=== PATIENT | female | born 1960 | race Caucasian/White ===

== ENCOUNTER → 2017-05-31 07:04 | Outpatient (CLI) | payer OTHER, SELFPAY ==
[2017-05-31 08:56] LABS: ALB/GLOB Ratio 1.1 RATIO (0.9-2.4); AST(SGOT) 18 U/L (15-37); Alanine Aminotransfer ALT/SGPT 21 U/L (13-56); Albumin, Serum 3.9 g/dL (3.2-5.0); Alkaline Phosphatase 89 U/L (45-117); Anion Gap 7 (5-15); BUN 11 mg/dL (7-18); BUN/Creat Ratio 13.9 RATIO (10-20); Calcium,Total 9.1 mg/dL (8.5-10.1); Chloride 103 mmol/L (98-107); Cholesterol 194 mg/dL (200); Creatinine, Serum 0.79 mg/dL (0.55-1.02); EST Glomerular Filtration Rate 80 mL/min (>60); Est Glom Filt Rate - Afr Amer 97 mL/min (>60); Globulin 3.7 g/dL (2.2-4.2); Glucose 93 mg/dL (74-106); High Density Lipoprotein 60 mg/dL; Potassium 4.1 mmol/L (3.5-5.1); Protein, Total 7.6 g/dL (6.4-8.2); Sodium Level 141 mmol/L (136-145); Triglycerides 99 mg/dL; Very Low Density Lipoprotein 20 mg/dL (5-40)
[2017-06-02 09:50] LABS: Vitamin D,25 Hydroxy 45.2 ng/mL (19.95-100.01)
== END ==
PROVIDERS: Family Provider Nurse Practitioner; PCP Nurse Practitioner; Visit Provider Nurse Practitioner
DX: E78.5 Hyperlipidemia, unspecified (principal); E83.52 Hypercalcemia
CPT/HCPCS: 36415; 80053; 80061; 82306

== ENCOUNTER → 2018-04-17 07:31 | Outpatient (CLI) | payer OTHER, SELFPAY ==
--- NOTE | 2018-04-17 06:56 | BI_ITS ---
MAMMOGRAPHY - BILATERAL SCREENING REASON FOR EXAM: Female, 57 years old. Routine annual screening examination. PERTINENT HISTORY: Grandmother with breast cancer. Prior left stereotactic breast biopsy. TECHNIQUE: Digital bilateral breast nikhil (3D mammographic acquisition) in the CC and MLO projections. 2-D mediolateral oblique (MLO) and craniocaudad (CC) views of both breasts were obtained. CAD: Full Field Digital Mammography with Computer Added Detection was performed. COMPARISON: Comparison is made with prior study dated January 24, 2017 and January 23, 2016. FINDINGS: Breast Composition: There are scattered areas of fibroglandular density. There are no dominant masses or suspicious calcifications. Stable benign-appearing bilateral axillary lymph nodes. No other significant abnormalities are identified. There has been no significant change since the prior study. BI/SCREENING MAMM (CAD), BILAT IMPRESSION: Stable bilateral screening mammogram. Yearly follow-up mammogram recommended. (A) ASSESSMENT CATEGORY: BIRADS Category 2: Benign. A letter regarding these results will be sent to the patient by the facility within 30 days. Approximately 10% of breast cancers are not detected by mammography. A normal mammogram should not delay biopsy of a clinically suspicious abnormality. [id number] Electronically Signed: Logan Pope MD at 8:55 EST Tel [phone], Service support ,
== END ==
PROVIDERS: Family Provider Nurse Practitioner; PCP Nurse Practitioner; Referring Provider Nurse Practitioner; Visit Provider Nurse Practitioner
DX: Z12.31 Encounter for screening mammogram for malignant neoplasm of breast (principal)
CPT/HCPCS: 77063; 77067

== ENCOUNTER → 2018-07-17 08:15 | Outpatient (CLI) | payer OTHER, SELFPAY ==
[2016-07-06 15:57] VITALS: BMI 28.6
--- NOTE | 2018-07-17 08:17 | CT_ITS ---
HISTORY: RIGHT PELVIC MASS EXAMINATION: CT Pelvis W/ Contrast TECHNIQUE: Helically acquired images were obtained of the pelvis. A radiation dose optimization technique was used for this scan. IV Contrast dosage and agent: 100CC Isovue 300 Oral contrast: None. COMPARISON: None FINDINGS: LYMPH NODES: No enlarged pelvic lymph nodes. URINARY BLADDER: Unremarkable. REPRODUCTIVE ORGANS: 1.6 cm diameter oval fatty attenuation lesion in the right ovary compatible with a small incidental right ovarian dermoid. Uterus and left ovary unremarkable. ABDOMINAL WALL: No discrete abdominal or pelvic wall hernia observed. BONES: No lytic or blastic abnormality observed. BOWEL: Normal appendix. Scattered sigmoid colon diverticula. CT/Pelvis WITH IV Contrast IMPRESSION: Small incidental 1.6 cm right ovarian dermoid. Individualized dose optimization techniques were used for this CT. at 0310 Reported and signed by: Darian Bennett MD Electronically Signed: Darian Bennett, at 3:09 EDT Tel , Service support ,
== END ==
PROVIDERS: Family Provider Nurse Practitioner; PCP Nurse Practitioner; Referring Provider Obstetrics & Gynecology; Visit Provider Obstetrics & Gynecology
DX: R19.03 Right lower quadrant abdominal swelling, mass and lump (principal)
CPT/HCPCS: 72193; Q9967

== ENCOUNTER → 2018-07-30 | Outpatient (CLI) | payer OTHER, SELFPAY ==
[2016-07-06 15:57] VITALS: BMI 28.6
--- NOTE | 2018-07-30 15:54 | BD_ITS ---
STUDY: DUAL ENERGY X-RAY ABSORPTIOMETRY / DXA REASON FOR EXAM: Female, 58 years old. The patient is postmenopausal. Loss of height. TECHNIQUE: Bone Mineral Density (BMD) measurements of lumbar spine and bilateral hips were obtained. COMPARISON: Comparison is made with prior study dated January 23, 2016. FINDINGS: Lumbar Spine (L1-L4): g/cm2 (1.179) / T-score (0.0) / Z-score (1.0) Findings are suggestive of normal bone density with a low fracture risk. Left Femur Total: g/cm2 (0.941) / T-score (-0.5) / Z-score (0.3) Left Femoral Neck: g/cm2 (0.883) / T-score (-1.1) / Z-score (0.0) Right Femur Total: g/cm2 (0.921) / T-score (-0.7) / Z-score (0.1) Right Femoral Neck: g/cm2 (0.852) / T-score (-1.3) / Z-score (-0.2) The T-Scores on the most recent prior examination were: Lumbar Spine (L1-L4): There has been worsening of bone density since the previous examination. Left Femur Total: which represents a worsening of 2.9%. Right Femur Total: which represents a worsening of 3.7%. BD/Dexa Bone Density Study IMPRESSION: The patient is considered osteopenic as outlined below according to World Marcos Organization (WHO) criteria with a low fracture risk. There has been worsening of bone density since the previous examination. Reference Information: The T-score is the number of standard deviations above or below the standard which is normal for young adults at their peak bone mineral density. The World Health Organization (WHO) interprets the T-scores as follows: Above -1 Normal bone density Between -1 and -2.5 Osteopenia Equal to / or below -2.5 Osteoporosis As a practical clinical guideline, osteopenia may be graded as follows: Mild -1 through -1.5 Moderate -1.6 through -2.0 Severe -2.1 through -2.4 The Z-score is the number of standard deviations above or below age-matched controls. A Z-score of less than -1.5 would be considered abnormal. References: 1. NIH Osteoporosis and Related Bone Diseases http://www.osteo.org 2. International Society for Clinical Densitometry http://www.iscd.org 3. National Osteoporosis Foundation http://www.nof.org Electronically Signed: Logan Pope, at 15:10 EDT , Service support ,
== END | disposition home or self-care (01) ==
PROVIDERS: Family Provider Nurse Practitioner; PCP Nurse Practitioner; Referring Provider Obstetrics & Gynecology; Visit Provider Obstetrics & Gynecology
DX: Z13.820 Encounter for screening for osteoporosis (principal)
CPT/HCPCS: 77080

== ENCOUNTER → 2018-08-05 | Outpatient (CLI) | payer OTHER, SELFPAY ==
[2016-07-06 15:57] VITALS: BMI 28.6
--- NOTE | 2018-08-05 15:46 | RAD_ITS ---
STUDY: X-RAY CHEST REASON FOR EXAM: Female, 58 years old. Cough TECHNIQUE: PA and lateral COMPARISON: March 11, 2016. FINDINGS: The lungs are clear and expanded. There is no demonstrated pleural abnormality. Normal size heart. Normal mediastinum and aranza. Normal visualized pulmonary arteries. Normal visualized aortic arch and descending thoracic aorta. Dorsal spine demonstrates spondylosis.. Normal visualized ribs, clavicles, and shoulders. There is no demonstrated abnormality of the visualized soft tissue structures of the upper abdomen. No significant change since prior exam RAD/Chest PA and Lateral IMPRESSION: No acute cardiopulmonary pathology Electronically Signed: Efrain Schilling MD at 21:57 EDT , Service support ,
== END | disposition home or self-care (01) ==
LOC: HPRAD 15:42
PROVIDERS: Family Provider Nurse Practitioner; PCP Nurse Practitioner; Referring Provider Nurse Practitioner; Visit Provider Nurse Practitioner
DX: Z01.818 Encounter for other preprocedural examination (principal)
CPT/HCPCS: 71046

== ENCOUNTER 2018-08-10 11:41 | Day surgery (SDC) | payer OTHER, SELFPAY ==
--- NOTE | 2018-08-04 16:25 | EKG12_ITS ---
Test Reason : PRE OP Blood Pressure : / mmHG Vent. Rate : 079 BPM Atrial Rate : 079 BPM P-R Int : 162 ms QRS Dur : 086 ms QT Int : 390 ms P-R-T Axes : -04 -02 020 degrees QTc Int : 447 ms Normal sinus rhythm Nonspecific ST abnormality Inferior NH, age undetermined, cannot be excluded Abnormal ECG Confirmed by TANVI JUSTIN, CAMDEN ([id number]), food editor ELODIA KNOWLES ([id number]) on 08/05/2018 1:39:18 PM Referred By: Nurys Rosa Confirmed By:CAMDEN TINAJERO MD
[2018-08-04 17:25] LABS: International Normalized Ratio 1.1; Prothrombin Time (Protime)PT. 13.5 SECONDS (11.7-14.9)
[2018-08-04 17:26] LABS: Partial Thromboplast Time 29.2 Seconds (24.1-36.2)
[2018-08-04 17:28] LABS: Hematocrit 40.3 % (37-47); Hemoglobin 13.3 g/dl (12.0-15.0); Mean Corpuscular Hgb 29.9 pg (27.0-32.0); Mean Corpuscular Volume 90.6 fL (81-99); Mean Platelet Vol. 9.3 fl (6.2-12.0); Platelet Count 206 K/mm3 (150-450); RBC Distribution Width CV 12.6 % (11.6-14.6); RBC Distribution Width SD 41.6 fl (35.1-43.9); Red Blood Count 4.45 M/mm3 (4.2-5.4); White Blood Count 6.9 K/mm3 (4.4-11.0)
[2018-08-04 17:33] LABS: Scan Indicated on CBC? Y/N NO
[2018-08-04 17:49] LABS: AST(SGOT) 22 U/L (15-37); Alanine Aminotransfer ALT/SGPT 20 U/L (13-56); Albumin, Serum 4.1 g/dL (3.2-5.0); Alkaline Phosphatase 92 U/L (45-117); Anion Gap 4 (5-15); BUN 14 mg/dL (7-18); BUN/Creat Ratio 18.4 RATIO (10-20); Bilirubin, Direct 0.09 mg/dL (0.00-0.30); Calcium,Total 9.1 mg/dL (8.5-10.1); Chloride 103 mmol/L (98-107); Creatinine, Serum 0.76 mg/dL (0.55-1.02); EST Glomerular Filtration Rate 83 mL/min (>60); Est Glom Filt Rate - Afr Amer 101 mL/min (>60); Globulin 3.4 g/dL (2.2-4.2); Glucose 88 mg/dL (74-106); Potassium 4.3 mmol/L (3.5-5.1); Protein, Total 7.5 g/dL (6.4-8.2); Sodium Level 136 mmol/L (136-145)
--- NOTE | 2018-08-10 | OV_PTH ---
PATIENT: YASSINE BRICE [place] [facility] [id number] AGE/SX: 58/F ROOM: RE08/10/[address]: Dr. Nurys Rosa MD : 1960 BED: DIS: 08/10/2018 SPEC #: [id number] RECD: 08/11/18 07:29 STATUS: MIKHAIL SUE #: [id number] NIRMALA: 08/10/18 00:[address]: Nurys Rosa DEPT: SURGICAL PATHOLOGY RECD BY: Marshall De La Paz ENTERED: 08/11/18 12:13 SP TYPE: OVARY OTHR DR: Hortencia Flores NP-lCara Tissues: Right ovary Procedures: Surgery Specimen Level IV HEADER OPERATION: Laparoscopic right oophorectomy PRE-OP DIAGNOSIS: Right ovarian cyst TISSUE SUBMITTED: Right fallopian tube, right ovary, posterior uterine wall mass MICROSCOPIC DIAGNOSIS Right fallopian tube, right ovary and posterior uterine wall mass, salpingo-oophorectomy: Fallopian tube - no pathologic diagnosis. Ovary - no pathologic diagnosis. Posterior uterine wall mass - a piece of mature adipose tissue with extensive fat necrosis and chronic inflammation. DONNY:nneka 08/12/18 MICROSCOPIC DESCRIPTION Slides are reviewed. GROSS DESCRIPTION Received in fixative is one container labeled with the patient's name and designated right fallopian tube, right ovary, posterior uterine wall mass. The specimen consists of fallopian tube, separate ovary and a separate ladd-white to yellow nodule. The fallopian tube measures 4 cm in length and 0.5 cm in diameter. The fimbrial end is identified. Sections reveal unremarkable cut surfaces. The detached separate ovary measures 1.5 x 1 x 0.6 cm. Sections reveal unremarkable cut surfaces. A previously partially opened ladd-light yellow nodule measures 1.5 x 1.5 x 0.8 cm. It is bisected and reveals ladd, solid cut surfaces. Community Midwife sections are submitted in three cassettes as follows: 1 - fallopian tube, 2 - ovary, entirely submitted, 3 - nodule, entirely submitted. / DONNY:nneka 08/11/18 TC:5 CPT: 30629
--- NOTE | 2018-08-10 07:54 | PCM.HP.STD ---
Problem List (1) Ovarian cyst Status: Acute History of Present Illness Date of Admission: 08/10/18 Chief Complaint: right ovarian cyst The patient is a 58 year old, nulligravid female. She is an e-ciagrette user. Prior LSO laparoscopically for cyst of fallopian tube and adhesive disease causing ovarian cyst of left. Noted to have abdominal swelling. Imaging revealed suspicion for dermoid of right ovary. Past Medical History Medical History: Medical History (Last Updated 08/10/18 @ 07:58 by Nurys Rosa MD) History of hysteroscopy Z98.890 [place] teeth extracted K08.409 Allergies latex Allergy (Verified 08/04/18 12:06) Swelling plastic tape Allergy (Uncoded 08/04/18 12:06) Swelling Home Medications: Ambulatory Orders Medication Instructions Recorded Amitriptyline HCl 50 mg PO QHS 08/18/15 Atenolol [Tenormin] 25 mg PO DAILY 08/18/15 Escitalopram Oxalate [Lexapro] 20 mg PO QHS 08/18/15 Spironolactone [Aldactone] 100 mg PO DAILY 08/18/15 Cholecalciferol (Vitamin D3) 2,000 unit PO DAILY 17 [Vitamin D3] Multivitamin [Multiple Vitamins] 1 each PO DAILY 08/04/18 Surgical History: Surgical History (Last Updated 08/10/18 @ 07:58 by Nurys Rosa MD) H/O dilation and curettage Z98.890 History of laparoscopy Z98.890 History of tonsillectomy Z90.89 Surgical History: dilatation and curettage, tonsillectomy [employer] 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 History: ovarian cysts Lives: Spouse/ Significant Other - current e-cigarette user Smoking Status: Former smoker Tobacco Use: Vapor Alcohol: Occasional Drugs: None Review of Systems Constitutional: Denies: Chills, Fever, Weight Change HEENT: Denies: Difficulty Hearing, Difficulty Swallowing, Nasal bleeding, Nasal Congestion, Sore Throat Cardiovascular: Denies: Chest Pain, Palpitations Respiratory: Denies: Shortness of Breath, Wheezing Gastrointestinal: Reports: - - bloating Genitourinary: Denies: Dysuria, Frequency, Hematuria, Incontinence, Urgency Musculoskeletal: Denies: Joint Pain, Muscle pain Skin: Denies: Lesions, Skin Changes Neurological: Denies: Focal weakness, Numbness Psychiatric: Denies: Anxiety, Depression Endocrine: Denies: Heat/ Cold Intolerance Hematologic/ Lymphatic: Denies: Easy Bleeding VTE Information - Inpt Only VTE Present on Admission: No VTE Mechan Device Prophylaxis: SCD's VTE Pharm Prophylaxis ordered?: No Reason prophylaxis not ordered:: Procedure Not Indicated Subjective: Healthy appearing female. No acute distress. - Physical Exam General: No apparent distress, Well developed, Well nourished HEENT: PERRLA, EOMI, Normocephalic Oral: Moist Mucosa Neck: Supple Lungs: Clear to auscultation, Normal air movement, No wheeze Cardiovascular: Regular rate, Regular Rhythm Abdomen: Bowel Sounds Present, Soft, Non Tender, Non-Distended Extremities: No edema, No Calf Tenderness Skin: No rashes, No breakdown Musculoskeletal: No Muscle Wasting Neurological: Cranial nerves II-XII grossly intact Assessment/Plan All Active Problems Paratubal cyst (Acute) Ovarian cyst (Acute) Stenotic cervical os (Acute) Postmenopausal bleeding (Acute) 1. Right ovarian cyst, suspect dermoid from imaging findings laparoscopic removal 2. EKG changes cardiology involvement e-cigarette present and former cigarette user further evaluation occurring
[2018-08-10 12:01] VITALS: BP 118/94; PULSE 133; RESP 14; TEMP 36.8; O2SAT 100; BMI 28.5
--- NOTE | 2018-08-10 14:30 | PCM.OPRPT ---
Problem List (1) Ovarian cyst Status: Acute Report of Operation Date of Procedure: 08/10/18 Pre-Operative Diagnosis: Right adnexal mass Post-Operative Diagnosis: Right pelvic adhesive disease involving the right ovary right fallopian tube along with a separate 1-1/2 cm mass of the posterior surface of the uterus Surgery/Procedure Performed:: Operative laparoscopy right salpingo-oophorectomy removal of posterior uterine mass and enterolysis Description of Surgical Findings:: Uterus was sounded to approximately 8 cm in anteflexed position. Upon entry into the abdominal cavity it was noted that there was a large amount of pelvic adhesive disease surrounding the right ovary right fallopian tube and this 1.5 similar mass in the posterior surface of the uterus otherwise the pelvis appeared to be normal. product marketing manager: None product marketing manager: Robbie Broderick Type of Anesthesia:: General Anesthesiologist: [place] Special Medications: Cefotetan 2 g IV preoperatively Specimen's removed: Right fallopian tube, right ovary, posterior uterine solid mass Drains: None Estimated Blood Loss (mL): Minimal Fluids Replaced: Lactated Ringer's Description of Procedure: Patient presented in the n.p.o. status and had undergone a bowel preparation in the home setting. She is placed on the operating room table in the centimeters bag was in place. Patient had monitors placed and underwent a general anesthetic. Once it was found be adequate she is placed in dorsal lithotomy position via the Sky stirrups prepped and she was prepped and draped in normal sterile fashion. We did a timeout that occurred appropriately as well. The weighted speculum was placed to the vaginal vault letter to been emptied of remaining urine with a straight cath and was noted to be clear. The antilipid the cervix was grasped elevated and the uterine manipulator was placed to the cervical eyes for manipulation of the uterus all other instruments removed from the vagina. Changing gloves are into the top of the patient the prior incision site was once again incised. Sequential ligation and transection of the adipose tissue followed by the fascial tissue and entry into the peritoneum occurred manually. This was noted to be hemostatic. The trocar was placed directly into the incision and secured with the fascial layer. The lap scope was assembled and placed into the umbilical trocar and CO2 gas was infused into the abdominal cavity with investigation of the pelvis occurring. 2 additional 5 mm trochars were placed in direct under direct visualization in the right and left lower quadrants. The LigaSure machine was then used to aid with enteral lysis to free the fallopian tube and ovary from the pelvic adhesive disease as well as from the posterior uterine mass that was noted. That mass appeared to be fibroid-like or potentially an epiploicae 8 that had infarcted and attached to the back of the uterine wall. The mesosalpinx was transected and ligated the fallopian tube was then disconnected from the uterus and taken out through 1 of our patient observation assistant ports and hemostasis was noted. The ureter was noted to be well away from the area of operation and the flow the right ovary was then elevated uterine ovarian ligament was cauterized and transected followed by removal of the ovary itself from the pelvic adhesive disease along the posterior wall hemostasis was noted. The ovary was then removed through the umbilical trocar site. Lastly the solid density on the posterior surface of the uterine wall was grasped and disconnected cauterized and removed through the umbilical trocar as well. Irrigation of the pelvis occurred hemostasis was noted. She was removed from the abdomen ureters were both noted to be peristalsing bilaterally and well away from the area of operation all sponge and instrument counts were correct x2. The CO2 gas was released from the abdominal cavity trochars were released the fascial layer was identified at the umbilicus and 0 Vicryl suture was used in a running interlocking stitch to reapproximate this layer followed by subcuticular relaxation of the skin and subcuticular layer with a 4-0 Monocryl the umbilicus. The left and right 5 mm ports were then closed with subcuticular 4-0 Monocryl at this point in time then sponge instrument and needle counts were correct x2. Patient was awakened in stable condition after the uterine manipulator had been removed from the vagina per myself patient will be taken recovery room with discharge to the home setting Grafts/Implants Used: None - Complications None - Admit VTE Documentation VTE Present on Admission: No VTE Mechan Device Prophylaxis: SCD's VTE Pharm Prophylaxis ordered?: No Reason prophylaxis not ordered:: Procedure Not Indicated
--- NOTE | 2018-08-10 14:37 | OP.PCM_ITS ---
Problem List (1) Ovarian cyst Status: Acute Report of Operation Date of Procedure: 08/10/18 Pre-Operative Diagnosis: Right adnexal mass Post-Operative Diagnosis: Right pelvic adhesive disease involving the right ovary right fallopian tube along with a separate 1-1/2 cm mass of the posterior surface of the uterus Surgery/Procedure Performed:: Operative laparoscopy right salpingo-oophorectomy removal of posterior uterine mass and enterolysis Description of Surgical Findings:: Uterus was sounded to approximately 8 cm in anteflexed position. Upon entry into the abdominal cavity it was noted that there was a large amount of pelvic adhesive disease surrounding the right ovary right fallopian tube and this 1.5 similar mass in the posterior surface of the uterus otherwise the pelvis ap peared to be normal. char puller: None char puller: Robbie Broderick Type of Anesthesia:: General Anesthesiologist: [place] Special Medications: Cefotetan 2 g IV preoperatively Specimen's removed: Right fallopian tube, right ovary, posterior uterine solid mass Drains: None Estimated Blood Loss (mL): Minimal Fluids Replaced: Lactated Ringer's Description of Procedure: Patient presented in the n.p.o. status and had undergone a bowel preparation in the home setting. She is placed on the operating room table in the centimeters bag was in place. Patient had monitors placed and underwent a general anesthetic. Once it was found be adequate she is placed in dorsal lithotomy position via the Sky stirrups prepped and she was prepped and draped in normal sterile fashion. We did a timeout that occurred appropriately as well. The weighted speculum was placed to the vaginal vault letter to been emptied of remaining urine with a straight cath and was noted to be clear. The antilipid the cervix was grasped elevated and the uterine manipulator was placed to the cervical eyes for manipulation of the uterus all other instruments removed from the vagina. Changing gloves are into the top of the patient the prior incision site was once again incised. Sequential ligation and transection of the adipose tissue followed by the fascial tissue and entry into the peritoneum occurred manually. This was noted to be hemostatic. The trocar was placed directly into the incision and secured with the fascial layer. The lap scope was assembled and placed into the umbilical trocar and CO2 gas was infused into the abdominal cavity with investigation of the pelvis occurring. 2 additional 5 mm trochars were placed in direct under direct visualization in the right and left lower quadrants. The LigaSure machine was then used to aid with enteral lysis to free the fallopian tube and ovary from the pelvic adhesive disease as well as from the posterior uterine mass that was noted. That mass appeared to be fibroid- like or potentially an epiploicae 8 that had infarcted and attached to the back of the uterine wall. The mesosalpinx was transected and ligated the fallopian tube was then disconnected from the uterus and taken out through 1 of our assistant drafter ports and hemostasis was noted. The ureter was noted to be well away from the area of operation and the flow the right ovary was then elevated uterine ovarian ligament was cauterized and transected followed by removal of the ovary itself from the pelvic adhesive disease along the posterior wall hemostasis was noted. The ovary was then removed through the umbilical trocar site. Lastly the solid density on the posterior surface of the uterine wall was grasped and disconnected cauterized and removed through the umbilical trocar as well. Irrigation of the pelvis occurred hemostasis was noted. She was removed from the abdomen ureters were both noted to be peristalsing bilaterally and well away from the area of operation all sponge and instrument counts were correct x2. The CO2 gas was released from the abdominal cavity trochars were released the fascial layer was identified at the umbilicus and 0 Vicryl suture was used in a running interlocking stitch to reapproximate this layer followed by subcuticular relaxation of the skin and subcuticular layer with a 4-0 Monocryl the umbilicus. The left and right 5 mm ports were then closed with subcuticular 4-0 Monocryl at this point in time then sponge instrument and needle counts were correct x2. Patient was awakened in stable condition after the uterine manipulator had been removed from the vagina per myself patient will be taken recovery room with discharge to the home setting Grafts/Implants Used: None - Complications None - Admit VTE Documentation VTE Present on Admission: No VTE Mechan Device Prophylaxis: SCD's VTE Pharm Prophylaxis ordered?: No Reason prophylaxis not ordered:: Procedure Not Indicated
--- NOTE | 2018-08-10 14:41 | DCINST_ITS ---
Discharge Diet: - - increase water intake x 72 hours to a minimum of 100 ounces daily Discharge Activity: Return to Normal Activity, May Drive - when you are no longer taking pain/narcotic medicines., May Shower, May Take a Tub Bath - in 7 days. Return to work on:: 08/17/18 May shower in (days): 0 - TODAY May resume sexual activity in: 2 weeks Weight Bearing Status: Full weight bearing Lifting Restrictions: 5 pounds for 1 week Additional Activity Instructions:: Ambulate often with periods of rest in between Call your doctor if your incision/area has: Sudden Increased Bleeding, Increased Pain/ Swelling Call your doctor if you observe: Fever of 101 or Higher, Inability to urinate, Inability to have a bowel movement, Using more than one pad per hour, Shortness of breath Remove Dressing in (days):: 1 - remove dressings with soap and water after 24 hours and leave incisions open to air Cleanse incision/area with: Soap & Water Allergies/Adverse Reactions: Allergies latex Allergy (Verified 08/04/18 12:06) Swelling plastic tape Allergy (Uncoded 08/04/18 12:06) Swelling Medications to take at Discharge Amitriptyline HCl 50 mg PO QHS 08/18/15 Atenolol [Tenormin] 25 mg PO DAILY 08/18/15 Escitalopram Oxalate [Lexapro] 20 mg PO QHS 08/18/15 Spironolactone [Aldactone] 100 mg PO DAILY 08/18/15 Cholecalciferol (Vitamin D3) [Vitamin D3] 2,000 unit PO DAILY 07/06/16 Multivitamin [Multiple Vitamins] 1 each PO DAILY 08/04/18 Orders to be completed after discharge: 12 Lead EKG [[facility]] Time Frame: 08/04/18, Facility: [facility], Location: Cardiovascular Services Partial Thromboplast Time Time Frame: 08/04/18, Location: Laboratory CBC-Complete Blood Cnt No Diff Time Frame: 08/04/18, Location: Laboratory Liver Profile Time Frame: 08/04/18, Location: Laboratory Prothrombin Time w/INR Time Frame: 08/04/18, Location: Laboratory Primary Care Physician: Hortencia Flores NP-C [Primary Care Provider] - Test Results: Test results from this visit will be discussed in further detail at your follow- up appointment, if applicable. Please Follow Up With: Nurys Rosa MD When: 1-2 weeks Proposed Discharge Date: 08/10/18
[2018-08-10 14:49] VITALS: BP 105/82; BP 118/94; PULSE 86; RESP 16; TEMP 37.1; O2SAT 100
[2018-08-10 15:00] VITALS: BP 118/94; BP 122/82; PULSE 86; RESP 16; O2SAT 94
[2018-08-10 15:15] VITALS: BP 118/94; BP 125/85; PULSE 80; RESP 16; O2SAT 100
[2018-08-10 15:30] VITALS: BP 118/94; BP 127/84; PULSE 79; RESP 16; TEMP 36.8; O2SAT 100
[2018-08-10 16:32] VITALS: BP 118/94; BP 133/85; PULSE 109; RESP 16; TEMP 36.1; O2SAT 96
== END 2018-08-10 16:34 | disposition home or self-care (01) ==
LOC: SDC 11:45 → AC 11:46
PROVIDERS: Family Provider Nurse Practitioner; PCP Nurse Practitioner; Referring Provider Obstetrics & Gynecology; Visit Provider Obstetrics & Gynecology
PROC: (CPT 58720; principal; 2018-08-10 13:00)
DX: N71.1 Chronic inflammatory disease of uterus (principal); N73.6 Female pelvic peritoneal adhesions (postinfective); F17.290 Nicotine dependence, other tobacco product, uncomplicated; F41.9 Anxiety disorder, unspecified; F32.9 Major depressive disorder, single episode, unspecified; I10 Essential (primary) hypertension
CPT/HCPCS: 00840; 49321; 58661; 36415; 80048; 80076; 85027; 85610; 85730; 86850; 86900; 88305; 93005; J7120; J2405

== ENCOUNTER → 2018-10-09 | Outpatient (CLI) | payer OTHER, SELFPAY ==
[2018-09-30 08:57] VITALS: BMI 29.5
[2018-10-09 09:39] LABS: T4 Free Direct 0.97 ng/dL (0.76-1.46); Thyroid Stim Hormone (TSH) 1.42 uIU/mL (0.358-3.74)
== END | disposition home or self-care (01) ==
PROVIDERS: Family Provider Nurse Practitioner; PCP Nurse Practitioner; Referring Provider Nurse Practitioner Family; Visit Provider Nurse Practitioner Family
DX: R00.2 Palpitations (principal); R00.0 Tachycardia, unspecified
CPT/HCPCS: 36415; 84439; 84443; 93225; 93226

== ENCOUNTER → 2018-10-23 | Outpatient (CLI) | payer OTHER, SELFPAY ==
[2018-09-30 08:57] VITALS: BMI 29.5
--- NOTE | 2018-10-23 07:55 | ECHOD_ITS ---
Reason For Study: HYPERTENSION Procedure This was a 2D Doppler, Color Flow transthoracic echocardiogram. Exam performed in department. Left Ventricle Normal LV size. Left ventricular systolic function is normal. The estimated ejection fraction is 60 %. Stage 1 diastolic dysfunction. No regional wall motion abnormalities noted. Right Ventricle Normal RV size. Normal systolic function. Atria Normal left atrium. Normal right atrium. Mitral Valve Normal mitral valve. Tricuspid Valve Normal tricuspid valve. Mild (1+) tricuspid valve insufficiency. Pulmonary artery systolic pressure is 31 mmHg. Aortic Valve Trisinus/trileaflet aortic valve. Pulmonic Valve Normal pulmonic valve. Great Vessels Normal aortic root. The pulmonary artery is normal size. Normal inferior vena cava. Pericardium/Pleural No pericardial effusion. MMode/2D Measurements & Calculations LVIDd: 4.7 cm IVSd: 1.00 cm Ao root diam: 3.7 cm LVIDs: 3.0 cm LVPWd: 0.91 cm RVDd: 2.9 cm FS: 35.9 % LAV(MOD-bp): 35.7 ml LA A4 area: 14.7 cm2 LA dimension(2D): 3.1 cm LAV(MOD-bp) Indexed: 17.7 ml/m2 LAV(MOD-sp2): 30.7 ml LAV(MOD-sp4): 34.1 ml RA A4 area: 13.2 cm2 Time Measurements MV dec time: 0.19 sec Doppler Measurements & Calculations MV E max william: 73.8 cm/sec Lat Peak E' William: 6.6 cm/sec Med Peak E' William: 8.8 cm/sec MV A max william: 96.3 cm/sec E/E' lat: 11.1 E/E' med: 8.4 MV E/A: 0.77 Ao V2 max: 118.1 cm/sec LV V1 max: 91.2 cm/sec PA V2 max: 96.0 cm/sec Ao max P.6 mmHg LV V1 max P.3 mmHg TR max william: 262.9 cm/sec TR max P.7 mmHg Interpretation Summary Normal LV size. Left ventricular systolic function is normal. The estimated ejection fraction is 60 %. Stage 1 diastolic dysfunction. Mild (1+) tricuspid valve insufficiency. Ordering Physician: Reggie Sparks Referring Physician: Hortencia Flores Performed By: Lexis Coronado, EMIGDIO, RVT
== END | disposition home or self-care (01) ==
LOC: CVS 07:54
PROVIDERS: Family Provider Nurse Practitioner; PCP Nurse Practitioner; Referring Provider Internal Medicine Cardiovascular Disease; Visit Provider Internal Medicine Cardiovascular Disease
DX: R94.31 Abnormal electrocardiogram [ECG] [EKG] (principal); I10 Essential (primary) hypertension
CPT/HCPCS: 93306

== ENCOUNTER → 2019-09-07 16:17 | Outpatient (CLI) | payer OTHER, SELFPAY ==
[2018-09-30 08:57] VITALS: BMI 29.5
--- NOTE | 2019-09-07 16:19 | BI_ITS ---
MAMMOGRAPHY - BILATERAL SCREENING REASON FOR EXAM: Female, 59 years old. Routine annual screening examination. PERTINENT HISTORY: Remote left stereotactic breast biopsy. Grandmother with breast cancer. TECHNIQUE: Digital bilateral breast crystal (3D mammographic acquisition) in the CC and MLO projections. 2-D mediolateral oblique (MLO) and craniocaudad (CC) views of both breasts were obtained. CAD: Full Field Digital Mammography with Computer Added Detection was performed. COMPARISON: Comparison is made with prior examination dated April 17, 2018 and January 24, 2017. FINDINGS: Breast Composition: The breasts are heterogeneously dense, which may obscure small masses. There are no dominant masses or suspicious calcifications. Stable benign-appearing bilateral axillary lymph nodes. No other significant abnormalities are identified. There has been no significant change since the prior study. BI/SCREEN MAMM (CAD) W/CRYSTAL BILAT IMPRESSION: Stable bilateral screening mammogram. Yearly follow-up mammogram recommended. (A) ASSESSMENT CATEGORY: BIRADS Category 2: Benign. A letter regarding these results will be sent to the patient by the facility within 30 days. Approximately 10% of breast cancers are not detected by mammography. A normal mammogram should not delay biopsy of a clinically suspicious abnormality. [id number] Electronically Signed: Logan Pope, at 8:25 EDT , Service support ,
== END ==
PROVIDERS: PCP Nurse Practitioner; Referring Provider Obstetrics & Gynecology; Visit Provider Obstetrics & Gynecology
DX: Z12.31 Encounter for screening mammogram for malignant neoplasm of breast (principal)
CPT/HCPCS: 77063; 77067

== ENCOUNTER → 2019-12-27 | Outpatient (CLI) | payer OTHER, SELFPAY ==
[2019-12-03 08:55] VITALS: BMI 29.9
== END | disposition home or self-care (01) ==
LOC: PSN 08:59
PROVIDERS: PCP Nurse Practitioner; Referring Provider Internal Medicine Cardiovascular Disease; Visit Provider Internal Medicine Cardiovascular Disease
DX: I10 Essential (primary) hypertension (principal)
CPT/HCPCS: 93225; 93226

== ENCOUNTER → 2020-04-19 06:10 | Outpatient (CLI) | payer OTHER, SELFPAY ==
[2019-12-03 08:55] VITALS: BMI 29.9
[2020-04-19 07:05] LABS: Absolute Lymphocyte Count 1.61 X10^3/uL (0.83-4.51); Absolute Neutrophil Count 3.6 X10^3/uL (2.0-7.7); Basophil# 0.02 X10^3/uL; Basophil% 0.3 % (0-1); Hematocrit 42.2 % (37-47); Hemoglobin 13.4 g/dL (12.0-15.0); Lymphocyte # 1.61 X10^3/ul (4.0); Lymphocyte % 27.5 % (19-41); Mean Corp Hgb Conc 31.8 g/dL (32-36); Mean Corpuscular Hgb 28.2 pg (27.0-32.0); Mean Corpuscular Volume 88.8 fL (81-99); Mean Platelet Vol. 9.1 fl (6.2-12.0); Monocyte% 10.2 % (0-10); NRBC Flagged by Analyzer 0 % (0-5); Neutrophil # 3.61 X10^3/uL (2.7-7.7); Neutrophil % 61.7 % (47-70); Platelet Count 255 K/mm3 (150-450); RBC Distribution Width CV 12.3 % (11.6-14.6); RBC Distribution Width SD 40.3 fl (35.1-43.9); Red Blood Count 4.75 M/mm3 (4.2-5.4); White Blood Count 5.9 K/mm3 (4.4-11.0)
[2020-04-19 07:50] LABS: ALB/GLOB Ratio 1.1 RATIO (0.9-2.4); AST(SGOT) 19 U/L (15-37); Alanine Aminotransfer ALT/SGPT 21 U/L (13-56); Albumin, Serum 3.8 g/dL (3.2-5.0); Alkaline Phosphatase 111 U/L (45-117); Anion Gap 6 (5-15); BUN 9 mg/dL (7-18); Chloride 101 mmol/L (98-107); Cholesterol 212 mg/dL (200); Creatinine, Serum 0.75 mg/dL (0.55-1.02); EST Glomerular Filtration Rate 84 mL/min (>60); Est Glom Filt Rate - Afr Amer 101 mL/min (>60); Globulin 3.6 g/dL (2.2-4.2); Glucose 93 mg/dL (74-106); High Density Lipoprotein 69 mg/dL; Protein, Total 7.4 g/dL (6.4-8.2); Sodium Level 138 mmol/L (136-145); Thyroid Stim Hormone (TSH) 1.94 uIU/mL (0.358-3.74); Triglycerides 142 mg/dL; Very Low Density Lipoprotein 28 mg/dL (5-40)
== END ==
PROVIDERS: PCP Nurse Practitioner; Referring Provider Nurse Practitioner; Visit Provider Nurse Practitioner
DX: I10 Essential (primary) hypertension (principal)
CPT/HCPCS: 36415; 80053; 80061; 84443; 85025

== ENCOUNTER → 2020-08-30 08:57 | Outpatient (CLI) | payer OTHER, SELFPAY ==
[2019-12-03 08:55] VITALS: BMI 29.9
--- NOTE | 2020-08-30 09:01 | US_ITS ---
STUDY: ABDOMINAL ULTRASOUND REASON FOR EXAM: Female, 60 years old. Abdominal pain. Right lower quadrant pain. TECHNIQUE: Transabdominal ultrasound was performed with real-time and static dimas scale imaging. TECHNICAL QUALITY: Adequate. COMPARISON: CT of the abdomen and pelvis, 06/16/2015. FINDINGS: Liver: The liver measures 13.9 cm. There is increased echogenicity consistent with fatty infiltration. The bile ducts are within normal limits. There is hepatic color flow. The direction of portal flow is hepatopetal. There is no demonstrated mass lesion. Gallbladder: Normal distended gallbladder. The gallbladder wall measures 2.8 mm. There is a negative sonographic Steve''s sign. There is no pericholecystic fluid. There are no gallstones. Common Bile Duct (C.B.D.): The common bile duct measures 2.6 mm. Pancreas: Normal size of the head, body and tail of the pancreas. There is normal echogenicity of the pancreas. There is no demonstrated pancreatic mass or cyst. Spleen: Normal size of the spleen. The spleen measures 11.2 cm. Right Kidney: Normal size of the right kidney. The right kidney measures 10.0 cm. Normal renal cortex. The right cortex measures 1.6 cm. There is no demonstrated renal mass or cyst. There is no right hydronephrosis. Left Kidney: Normal size of the left kidney. The left kidney measures 10.2 cm. Normal renal cortex. The left cortex measures 1.3 cm. There is no demonstrated renal mass or cyst. There is no left hydronephrosis. Aorta: No abdominal aortic aneurysm. I.V.C.: The IVC is patent. There is no ascites. US/Abdomen Complete IMPRESSION: Fatty infiltration of the liver without focal mass. The study is otherwise unremarkable. Electronically Signed: Tj Ybarra DO at 17:49 EDT Tel [phone], Service support ,
--- NOTE | 2020-08-30 15:57 | US_ITS ---
STUDY: ULTRASOUND OF THE FEMALE PELVIS - COMPLETE REASON FOR EXAM: Female, 60 years old. Lower abdominal pain. Right lower quadrant abdominal pain. Bilateral oophorectomy. LMP: Unknown. TECHNIQUE: Transabdominal and Transvaginal TECHNICAL QUALITY: Adequate. COMPARISON: Pelvic CT, 07/17/2018. FINDINGS: The uterus is anteverted and is in a midline position. The uterus measures 6.2 x 3.9 x 2.5 cm. Normal uterine cervix. The endometrium measures 1 mm in thickness, and is hyperechoic. There is no demonstrated endometrial mass. There is no demonstrated myometrial mass. I.U.D. - The patient does not have an I.U.D. The right ovary is surgically absent in the right lower quadrant there is a 7.3 x 7.6 x 8.3 cm fluid density mass seen only when the bladder was full. This disappears when the bladder is empty suggesting a bladder diverticulum. The left ovary is surgically absent. There is no visualized left adnexal mass or complex lesion. There is no fluid in the cul-de-sac. The pre void volume of the bladder was 330 ml. The urinary bladder is grossly normal. Polycystic ovary disease: No. US/Pelvic (Non ) IMPRESSION: 1. Normal uterus. 2. Status post left oophorectomy. 3. Fluid density mass in the right adnexa which appears to disappear with emptying of the urinary bladder. Question large bladder diverticulum. Other possibilities include a fluid cyst or fluid-filled bowel loop. Patient may require CT. Electronically Signed: Tj Ybarra DO at 21:26 EDT Tel [phone], Service support ,
--- NOTE | 2020-08-30 15:57 | US_ITS ---
STUDY: ULTRASOUND OF THE FEMALE PELVIS - COMPLETE REASON FOR EXAM: Female, 60 years old. Lower abdominal pain. Right lower quadrant abdominal pain. Bilateral oophorectomy. LMP: Unknown. TECHNIQUE: Transabdominal and Transvaginal TECHNICAL QUALITY: Adequate. COMPARISON: Pelvic CT, 07/17/2018. FINDINGS: The uterus is anteverted and is in a midline position. The uterus measures 6.2 x 3.9 x 2.5 cm. Normal uterine cervix. The endometrium measures 1 mm in thickness, and is hyperechoic. There is no demonstrated endometrial mass. There is no demonstrated myometrial mass. I.U.D. - The patient does not have an I.U.D. The right ovary is surgically absent in the right lower quadrant there is a 7.3 x 7.6 x 8.3 cm fluid density mass seen only when the bladder was full. This disappears when the bladder is empty suggesting a bladder diverticulum. The left ovary is surgically absent. There is no visualized left adnexal mass or complex lesion. There is no fluid in the cul-de-sac. The pre void volume of the bladder was 330 ml. The urinary bladder is grossly normal. Polycystic ovary disease: No. US/Transvaginal Non- IMPRESSION: 1. Normal uterus. 2. Status post left oophorectomy. 3. Fluid density mass in the right adnexa which appears to disappear with emptying of the urinary bladder. Question large bladder diverticulum. Other possibilities include a fluid cyst or fluid-filled bowel loop. Patient may require CT. Electronically Signed: Tj Ybarra DO at 21:26 EDT Tel [phone], Service support ,
== END ==
PROVIDERS: PCP Nurse Practitioner; Referring Provider Nurse Practitioner; Visit Provider Nurse Practitioner
DX: R10.30 Lower abdominal pain, unspecified (principal)
CPT/HCPCS: 76700; 76830; 76856

== ENCOUNTER → 2020-09-13 09:54 | Outpatient (CLI) | payer OTHER, SELFPAY ==
[2019-12-03 08:55] VITALS: BMI 29.9
--- NOTE | 2020-09-13 09:56 | BI_ITS ---
MAMMOGRAPHY - BILATERAL SCREENING REASON FOR EXAM: Female, 60 years old. Routine annual screening examination. PERTINENT HISTORY: Grandmother with breast cancer. History of prior left stereotactic breast biopsy. TECHNIQUE: Digital bilateral breast crystal (3D mammographic acquisition) in the CC and MLO projections. 2-D mediolateral oblique (MLO) and craniocaudad (CC) views of both breasts were obtained. CAD: Full Field Digital Mammography with Computer Added Detection was performed. COMPARISON: Comparison is made with prior study dated 09/07/2019 and 04/17/2018. FINDINGS: Breast Composition: The breasts are heterogeneously dense, which may obscure small masses. There are no dominant masses or suspicious calcifications. A tissue clip marker is seen in the deep inferior medial aspect of the left breast. Stable small benign-appearing bilateral axillary lymph nodes. No other significant abnormalities are identified. There has been no significant change since the prior study. BI/SCRN MAMM (CAD)W/CRYSTAL BILAT IMPRESSION: Stable bilateral screening mammogram. Yearly follow-up mammogram recommended. (A) ASSESSMENT CATEGORY: BIRADS Category 2: Benign. A letter regarding these results will be sent to the patient by the facility within 30 days. Approximately 10% of breast cancers are not detected by mammography. A normal mammogram should not delay biopsy of a clinically suspicious abnormality. [id number] Electronically Signed: Logan Pope MD at 10:56 EDT , Service support ,
--- NOTE | 2020-09-13 10:22 | BD_ITS ---
STUDY: DUAL ENERGY X-RAY ABSORPTIOMETRY / DXA REASON FOR EXAM: Female, 60 years old. Z780 -- POST PONCHO. TECHNIQUE: Bone Mineral Density (BMD) measurements of lumbar spine and bilateral hips were obtained. COMPARISON: Comparison is made with prior study dated 07/30/2018. FINDINGS: Lumbar Spine (L1-L4): g/cm2 (1.134) / T-score (-0.4) / Z-score (0.8) Findings are suggestive of normal bone density with a low fracture risk. Left Femur Total: g/cm2 (0.925) / T-score (-0.7) / Z-score (12.3) Left Femoral Neck: g/cm2 (0.957) / T-score (-0.6) / Z-score (0.7) Right Femur Total: g/cm2 (0.907) / T-score (-0.8) / Z-score (0.1) Right Femoral Neck: g/cm2 (0.837) / T-score (-1.4) / Z-score (-0.2) The T-Scores on the most recent prior examination were: Lumbar Spine (L1-L4): There has been worsening of bone density since the previous examination. Left Femur Total: which represents a worsening of 1.7%. Right Femur Total: which represents a worsening of 1.5%. BD/Dexa Bone Density Study IMPRESSION: The patient is considered osteopenic as outlined below according to World Marcos Organization (WHO) criteria with a low fracture risk. There has been worsening of bone density since the previous examination. Reference Information: The T-score is the number of standard deviations above or below the standard which is normal for young adults at their peak bone mineral density. The World Health Organization (WHO) interprets the T-scores as follows: Above -1 Normal bone density Between -1 and -2.5 Osteopenia Equal to / or below -2.5 Osteoporosis As a practical clinical guideline, osteopenia may be graded as follows: Mild -1 through -1.5 Moderate -1.6 through -2.0 Severe -2.1 through -2.4 The Z-score is the number of standard deviations above or below age-matched controls. A Z-score of less than -1.5 would be considered abnormal. References: 1. NIH Osteoporosis and Related Bone Diseases www osteo.org 2. International Society for Clinical Densitometry www iscd.org 3. National Osteoporosis Foundation www nof.org Electronically Signed: Logan Pope MD at 14:37 EDT , Service support ,
== END ==
PROVIDERS: PCP Nurse Practitioner; Referring Provider Nurse Practitioner; Visit Provider Nurse Practitioner
DX: Z78.0 Asymptomatic menopausal state (principal); Z12.31 Encounter for screening mammogram for malignant neoplasm of breast
CPT/HCPCS: 77063; 77067; 77080

== ENCOUNTER → 2020-09-21 07:45 | Outpatient (CLI) | payer OTHER, SELFPAY ==
[2019-12-03 08:55] VITALS: BMI 29.9
--- NOTE | 2020-09-21 07:50 | CT_ITS ---
STUDY: CT ABDOMEN AND PELVIS WITH AND WITHOUT CONTRAST REASON FOR EXAM: Female, 60 years old. UNSPECIFIED ABD PAIN, ABNORMAL FINDINGS ON DX IMAGING OF RENAL -- PELVIS,URETER OR BLADDER,DIVERTICULUM OF BLADDER RADIATION DOSAGE (If Supplied By Facility): CTDIvol = ( 21.11 ) mGy, DLP = ( 2762.99 ) mGycm TECHNIQUE: Transaxial images were obtained from the dome of the diaphragm to the symphysis pubis without oral contrast. IV 100mL Isovue-300 was administered. Sagittal and coronal images were reconstructed. Individualized dose optimization techniques were used for this CT. COMPARISON: Comparison is made with prior examination dated 06/16/2015 and prior sonogram of the pelvis dated 08/30/2020. FINDINGS: The visualized lung bases are unremarkable. The visualized portions of the heart are within normal limits. Normal liver. Normal gallbladder and extrahepatic biliary system. Normal spleen. Normal pancreas. Normal bilateral adrenal glands. Normal right kidney. Normal left kidney. Normal visualized stomach. Normal small intestine. There are scattered colonic diverticula consistent with diverticulosis. The appendix is visualized and appears normal. Normal abdominal aorta. Normal inferior vena cava. There is borderline retroperitoneal lymphadenopathy with enlarged nodes no greater than 10mm in the short axis diameter. The bladder is empty at the time of the examination. There is a 2.5 cm fibroid in the fundal portion of uterus. Normal abdominal wall. There are diffuse degenerative changes of the visualized lumbar spine. There is straightening of the normal lumbar lordosis. CT/CT Abd/Pelvis W/WO Contrast IMPRESSION: No pelvic masses seen. Fibroid uterus. Electronically Signed: Logan Pope MD at 10:29 EDT , Service support ,
[2020-09-21 08:05] LABS: EGFR FINGERSTICK > 60.0000 mL/min (>60)
== END ==
PROVIDERS: PCP Nurse Practitioner; Referring Provider Nurse Practitioner Adult Health; Visit Provider Nurse Practitioner Adult Health
DX: N32.3 Diverticulum of bladder (principal); R93.41 Abnormal radiologic findings on diagnostic imaging of renal pelvis, ureter, or bladder; R10.9 Unspecified abdominal pain
CPT/HCPCS: 74178; Q9967

== ENCOUNTER → 2020-12-12 16:52 | Outpatient (CLI) | payer OTHER, SELFPAY ==
[2020-12-19 12:58] LABS: HPV APTIMA, High Risk Negative (Negative)
== END ==
PROVIDERS: PCP Nurse Practitioner; Referring Provider Nurse Practitioner Women's Health; Visit Provider Nurse Practitioner Women's Health
DX: Z12.4 Encounter for screening for malignant neoplasm of cervix (principal)
CPT/HCPCS: 87624; 88175; G0145

== ENCOUNTER → 2020-12-29 13:55 | Outpatient (CLI) | payer OTHER, SELFPAY ==
--- NOTE | 2020-12-29 13:57 | ECHOCS_ITS ---
Version 2 Reason For Study: Dyspnea/SOB Procedure This was a 2D Doppler, Color Flow transthoracic echocardiogram. The study was technically difficult. Contrast injection was performed. Exam performed in department. Left Ventricle Normal LV size. Left ventricular systolic function is normal. The estimated ejection fraction is 60 %. Stage 1 diastolic dysfunction. No regional wall motion abnormalities noted. Right Ventricle Normal RV size. Normal systolic function. Atria Normal left atrium. Normal right atrium. Mitral Valve Normal mitral valve. Tricuspid Valve Normal tricuspid valve. Aortic Valve Normal aortic valve. Pulmonic Valve Normal pulmonic valve. Great Vessels Normal aortic root. The pulmonary artery is normal size. Normal inferior vena cava. Pericardium/Pleural No pericardial effusion. Medication 22 gauge I.V. with prn adaptor inserted into left arm. Diluted definity 2ml given slow IV push to enhance endocardial definition. MMode/2D Measurements & Calculations LVIDd: 4.3 cm IVSd: 0.94 cm Ao root diam: 3.3 cm LVIDs: 2.9 cm LVPWd: 1.3 cm LA dimension: 3.1 cm FS: 32.0 % LAV(MOD-bp): 36.4 ml LA A4 area: 15.4 cm2 LAV(MOD-bp) Indexed: 17.7 ml/m2 LAV(MOD-sp2): 31.7 ml LAV(MOD-sp4): 39.8 ml Time Measurements MV dec time: 0.25 sec Doppler Measurements & Calculations MV E max william: 63.3 cm/sec Lat Peak E' William: 7.0 cm/sec Med Peak E' William: 7.0 cm/sec MV A max william: 81.2 cm/sec E/E' lat: 9.0 E/E' med: 9.1 MV E/A: 0.78 MV V2 max: 84.8 cm/sec MV P1/2t max william: 67.9 cm/sec Ao V2 max: 116.8 cm/sec MV max P.9 mmHg MV P1/2t: 79.6 msec Ao max P.5 mmHg MV V2 mean: 47.4 cm/sec MV dec slope: 250.1 cm/sec2 MV mean P.0 mmHg MV V2 VTI: 21.4 cm MVA(P1/2t): 2.8 cm2 LV V1 max: 102.8 cm/sec PA V2 max: 82.8 cm/sec LV V1 max P.2 mmHg ECHO/Echo Complete W/ Contrast Interpretation Summary Normal LV size. Left ventricular systolic function is normal. The estimated ejection fraction is 60 %. Stage 1 diastolic dysfunction. Contrast injection was performed. Ordering Physician: Leigh Amador Referring Physician: Hortencia Flores Performed By: Carloz Kenny RCS
== END ==
PROVIDERS: PCP Nurse Practitioner; Referring Provider Nurse Practitioner Gerontology; Visit Provider Nurse Practitioner Gerontology
DX: R06.00 Dyspnea, unspecified (principal)
CPT/HCPCS: 93306; Q9957; A4216; C8929; J3490

== ENCOUNTER → 2021-12-07 | Outpatient (CLI) | payer OTHER, SELFPAY ==
--- NOTE | 2021-12-07 07:31 | BI_ITS ---
MAMMOGRAPHY - BILATERAL SCREENING REASON FOR EXAM: Female, 61 years old. Routine annual screening examination. PERTINENT HISTORY: Grandmother with breast cancer. Prior left stereotactic breast biopsy. TECHNIQUE: Digital bilateral breast crystal (3D mammographic acquisition) in the CC and MLO projections. 2-D mediolateral oblique (MLO) and craniocaudad (CC) views of both breasts were obtained. CAD: Full Field Digital Mammography with Computer Added Detection was performed. COMPARISON: Comparison is made with prior study dated 09/13/2020 and 09/07/2019. FINDINGS: Breast Composition: The breasts are heterogeneously dense, which may obscure small masses. There are no dominant masses or suspicious calcifications. Stable small benign-appearing bilateral axillary lymph nodes. No other significant abnormalities are identified. There has been no significant change since the prior study. BI/SCRN MAMM (CAD)W/CRSYTAL BILAT IMPRESSION: Stable bilateral screening mammogram. Yearly follow-up mammogram recommended. (A) ASSESSMENT CATEGORY: BIRADS Category 2: Benign. A letter regarding these results will be sent to the patient by the facility within 30 days. Approximately 10% of breast cancers are not detected by mammography. A normal mammogram should not delay biopsy of a clinically suspicious abnormality. [id number] Electronically Signed: Logan Pope MD at 8:52 EDT ,
== END | disposition home or self-care (01) ==
LOC: OPBI 07:31
PROVIDERS: PCP Nurse Practitioner Family; Visit Provider Nurse Practitioner Women's Health
DX: Z12.31 Encounter for screening mammogram for malignant neoplasm of breast (principal)
CPT/HCPCS: 77063; 77067

== ENCOUNTER → 2021-12-18 | Outpatient (CLI) | payer OTHER, SELFPAY ==
[2021-12-18 11:56] LABS: Thyroid Stim Hormone (TSH) 1.55 uIU/mL (0.358-3.74)
== END | disposition home or self-care (01) ==
LOC: LAB 10:17
PROVIDERS: PCP Nurse Practitioner Family; Referring Provider Internal Medicine Cardiovascular Disease; Visit Provider Internal Medicine Cardiovascular Disease
DX: R00.0 Tachycardia, unspecified (principal)
CPT/HCPCS: 36415; 84443

== ENCOUNTER 2022-02-01 09:57 | Day surgery (SDC) | payer OTHER, SELFPAY ==
[2022-02-01 10:24] VITALS: BP 129/94; PULSE 110; RESP 16; TEMP 36.1; O2SAT 100; BMI 31.8
[2022-02-01] MEDS: Lactated Ringers 1,000 ML 15 ML IV (10:28)
--- NOTE | 2022-02-01 10:58 | HP.PCM_ITS ---
History and Physical Date of Admission: 02/01/22 Intake Vital Signs ? 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 Required: No Is patient in pain?: No Allergies adhesive tape Allergy (Verified 12/28/21 13:02) Swellinglatex Allergy (Verified 12/28/21 13:02) Swelling Medications amitriptyline 50 mg tablet 50 mg PO QHS 08/18/15 [History Confirmed 12/28/21] cholecalciferol (vitamin D3) 25 mcg (1,000 unit) chewable tablet 2,000 unit PO DAILY 07/06/16 [History Confirmed 12/28/21] multivitamin 1 ea PO DAILY 08/04/18 [History Confirmed 12/28/21] alprazolam 0.5 mg tablet PO PRN 8 days #30 tabs 12/11/20 [History Confirmed 12/28/21] duloxetine 20 mg capsule,delayed release 20 mg PO DAILY 12/11/20 [History Confirmed 12/28/21] lisinopril 10 mg-hydrochlorothiazide 12.5 mg tablet See Rx Instructions .Route .COMPLEX #90 tabs 03/12/21 [Rx Confirmed 12/28/21] metoprolol succinate 25 mg tablet,extended release 24 hr (Toprol XL) 25 mg PO DAILY #90 tabs 04/16/21 [Rx Confirmed 12/28/21] calcium citrate 250 mg calcium-vitamin D3 5 mcg (200 unit) tablet (Citracal Regular) 1 tab PO TID 12/25/21 [History Confirmed 12/28/21] PFSH Medical History? Anxiety and depression Essential (primary) hypertension GERD (gastroesophageal reflux disease) Hyperlipidemia IBS (irritable bowel syndrome) Obesity Osteopenia Ovarian cyst Paratubal cyst Post-menopausal bleeding Raynauds syndrome Uterine fibroid Surgical History? H/O dilation and curettage History of hysteroscopy History of laparoscopy History of left salpingo-oophorectomy History of right salpingo-oophorectomy (08/10/18) History of tonsillectomy [place] teeth extracted Family History? Father CAD (coronary artery disease) ?? ? CABG age 59 HypertensionBrother Hypertension CAD (coronary artery disease) Myocardial infarction ?? ? from [place] Breast cancerUnknown Breast cancerOther CVA (cerebral vascular accident) Social History? household members:? spouse current occupational status:? employed current occupation:? [employer] history of recent travel:? No Smoking Status:? Former smoker Electronic Cigarette Use:? with nicotine alcohol intake:? current alcohol intake frequency: a few times a month substance use type:? does not use what type of physical activity do you participate in:? walking frequency:? 3-4 times per week seatbelt use:? always do you feel safe at home:? Yes additional social history:? - Ryan HPI HPI HPI: 61-year-old female here for screening colonoscopy.? Her last colonoscopy was about 20 years ago.? She denies any abdominal pain or blood in the stool.? She has no family history of colon cancer. ROS General General: Yes weight change and fatigue; No appetite, colon cancer, breast cancer or weakness HEENT HEENT: Yes eye surgery; No difficulty swallowing, eye injury, swollen glands or hoarseness Endo Endocrine: No thyroid disease, diabetes mellitus, thyroid cancer, Hair loss, heat intolerance or cold intolerance Skin Skin: No rash or changing moles Musc Musculoskeletal: No back problems, arthritis, rheumatoid arthritis, gout or joint pain Cardio Cardiovascular: Yes high blood pressure; No murmur, pacemaker, heart disease, atrial fibrillation, heart attack, heart stent, palpitations, shortness of breat with exertion or chest pain Psych Psychiatric: Yes depression and anxiety; No hearing voices Resp Respiratory: No shortness of breath, No sleep apnea, No cough, No COPD, No asthma, No emphysema and No wheezing Gastro Gastrointestinal: No abdominal pain, No nausea or vomiting, No diarrhea, No constipation, No blood in stool, No acid reflux, No hemorrhoids, No ulcers, No gallbladder problem and No black,tarry stools Quan Hematologic: No blood thinners, No blood disorders, No bleeding, No anemia and No blood clots Neuro Neurologic: No system reviewed and no additional complaints, except as documented, No as per HPI, No abnormal gait, No abnormal hearing, No abnormal movements, No abnormal speech, No behavioral changes, No burning sensations, No confusion, No convulsions, No disequilibrium, No dizziness, No localized weakness, No frequent falls, No headache(s), No lack of coordination, No loss of vision, No memory loss, No numbness, No other visual disturbances, No radicular pain, No restless legs, No sensory deficit, No syncope, No tingling, No tremor(s), No weakness and No other Exam Const General: cooperative Orientation: alert and oriented x3 HENMT Head: normal to inspection Neck Neck: normal visual inspection and full ROM Chest Chest palpation & inspection: normal inspection of the chest Resp Effort & Inspection: normal respiratory effort Auscultation: clear to auscultation bilaterally Cardio Rate: regular rate Rhythm: regular rhythm GI Inspection: non-distended Palpation: soft and nontender Skin General: no rashes or lesions noted Neuro General: patient alert and patient oriented x3 Extrem General: full ROM Psych Appearance: grossly normal Mental Status: mental status grossly normal Assessment and Plan Assessment and Plan (1) Screen for colon cancer: ?Status:?Acute ?Plan: I explained endoscopy in detail to the patient.? I explained the risks including but not limited to stroke or heart attack with anesthesia, perforation of the GI tract, bleeding, infection.? I explained that any of these could necessitate further emergency surgery.? The patient understands and all questions were answered sufficiently.? The patient wishes to proceed with procedure. Roe Iraheta MD Pager: [facility] [address] [place] [address], [address] [place] [address] Office: I have re-examined the patient. There are no clinical changes since date of exam.
--- NOTE | 2022-02-01 11:25 | OP.CCLET_ITS ---
02/01/2022 Rai Vernon Re : Colonoscopy procedure for Yee Ruiz Dear Yury This procedure was performed on Tuesday, February 01, 2022. My impressions and recommendations are as follows: Impressions : - The entire examined colon is normal on direct and retroflexion views. - No specimens collected. Recommendations : - Discharge patient to home. - Resume previous diet. - Continue present medications. - Repeat colonoscopy in 10 years for screening purposes. My findings are described in the full procedure note, which is enclosed. If I can be of further assistance, please feel free to contact me at Doctor phone number(s): , Work: . Sincerely, Roe Iraheta MD 02/01/2022 11:24:54 AM This report has been signed electronically.
--- NOTE | 2022-02-01 11:25 | OP.COLON_ITS ---
Patient Name: Yee Ruiz Procedure Date: 02/01/2022 11:03 AM Date of : 1960 Age: 61 Procedure: Colonoscopy Indications: Screening for colorectal malignant neoplasm Providers: Roe Iraheta MD Medicines: Monitored Anesthesia Care Patient Profile: This is a 61 year old female. Refer to note in patient chart for documentation of history and physical. Last Colonoscopy: more than 10 years ago. Complications: No immediate complications. Procedure: Pre-Anesthesia Assessment: - Prior to the procedure, a History and Physical was performed, and patient medications and allergies were reviewed. The patient's tolerance of previous anesthesia was also reviewed. The risks and benefits of the procedure and the sedation options and risks were discussed with the patient. All questions were answered, and informed consent was obtained. Prior Anticoagulants: The patient has taken no previous anticoagulant or antiplatelet agents. ASA Grade Assessment: II - A patient with mild systemic disease. After reviewing the risks and benefits, the patient was deemed in satisfactory condition to undergo the procedure. After I obtained informed consent, the scope was passed under direct vision. Throughout the procedure, the patient's blood pressure, pulse, and oxygen saturations were monitored continuously. The pediatric colonoscope was introduced through the anus and advanced to the cecum, identified by appendiceal orifice and ileocecal valve. The colonoscopy was performed without difficulty. The patient tolerated the procedure well. The quality of the bowel preparation was good. Scope In: 11:11:14 AM Scope Withdrawal Time 0 hours 6 minutes 7 seconds Scope Out: 11:22:06 AM Total Procedure Duration Time 0 hours 10 minutes 52 seconds Findings: The entire examined colon appeared normal on direct and retroflexion views. Impression: - The entire examined colon is normal on direct and retroflexion views. - No specimens collected. Recommendation: - Discharge patient to home. - Resume previous diet. - Continue present medications. - Repeat colonoscopy in 10 years for screening purposes. Procedure Code(s): --- Professional --- 12694, Colonoscopy, flexible; diagnostic, including collection of specimen(s) by brushing or washing, when performed (separate procedure) Diagnosis Code(s): --- Professional --- Z12.11, Encounter for screening for malignant neoplasm of colon CPT copyright 2017 [place]. All rights reserved. The codes documented in this report are preliminary and upon pricing analyst review may be revised to meet current compliance requirements. Roe Iraheta MD 02/01/2022 11:24:54 AM This report has been signed electronically. Number of Addenda: 0 Note Initiated On: 02/01/2022 11:03 AM
[2022-02-01 11:26] VITALS: BP 129/94; BP 133/85; PULSE 89; RESP 16; TEMP 36.4; O2SAT 100
[2022-02-01 11:30] VITALS: BP 129/94; BP 136/88; PULSE 91; RESP 16; O2SAT 100
[2022-02-01 11:35] VITALS: BP 129/94; BP 134/89; PULSE 88; RESP 16; O2SAT 100
[2022-02-01 11:40] VITALS: BP 129/94; BP 130/89; PULSE 86; RESP 16; TEMP 36.5; O2SAT 100
[2022-02-01 12:05] VITALS: BP 129/94
== END 2022-02-01 12:26 | disposition home or self-care (01) ==
LOC: EN 09:58 → AC 10:01
PROVIDERS: PCP Nurse Practitioner Family; Referring Provider Nurse Practitioner Family; Visit Provider Surgery
PROC: 0DJD8ZZ Inspection of Lower Intestinal Tract, Via Natural or Artificial Opening Endoscopic (ICD-10-PCS; CPT 45378; principal; 2022-02-01 10:55)
DX: Z12.11 Encounter for screening for malignant neoplasm of colon (principal); I10 Essential (primary) hypertension; F17.290 Nicotine dependence, other tobacco product, uncomplicated; Z79.899 Other long term (current) drug therapy
CPT/HCPCS: G0121; J7120; J2405

== ENCOUNTER → 2022-12-10 | Outpatient (CLI) | payer OTHER, SELFPAY ==
--- NOTE | 2022-12-10 13:09 | BI_ITS ---
MAMMOGRAPHY - BILATERAL SCREENING REASON FOR EXAM: Female, 62 years old. Routine annual screening examination. PERTINENT HISTORY: Grandmother with breast cancer. Aunt with breast cancer. Prior left stereotactic breast biopsy. TECHNIQUE: Digital bilateral breast crystal (3D mammographic acquisition) in the CC and MLO projections. 2-D mediolateral oblique (MLO) and craniocaudad (CC) views of both breasts were obtained. CAD: Full Field Digital Mammography with Computer Added Detection was performed. COMPARISON: Comparison is made with prior study December 07, 2021 and September 13, 2020. FINDINGS: Breast Composition: The breasts are heterogeneously dense, which may obscure small masses. There are no dominant masses or suspicious calcifications. Stable small benign-appearing bilateral axillary lymph nodes. The patient clip marker is seen in the deep inferior medial aspect of the left breast. No other significant abnormalities are identified. There has been no significant change since the prior study. BI/SCRN MAMM (CAD)W/CRYSTAL BILAT IMPRESSION: Stable bilateral screening mammogram. Yearly follow-up mammogram recommended. (A) ASSESSMENT CATEGORY: BIRADS Category 2: Benign. A letter regarding these results will be sent to the patient by the facility within 30 days. Approximately 10% of breast cancers are not detected by mammography. A normal mammogram should not delay biopsy of a clinically suspicious abnormality. [id number] Electronically Signed: Logan Pope MD at 10:24 EDT ,
== END | disposition home or self-care (01) ==
LOC: OPBI 13:08
PROVIDERS: PCP Nurse Practitioner Family; Referring Provider Nurse Practitioner Women's Health; Visit Provider Nurse Practitioner Women's Health
DX: Z12.31 Encounter for screening mammogram for malignant neoplasm of breast (principal)
CPT/HCPCS: 77063; 77067

== ENCOUNTER 2023-01-03 11:54 | Outpatient (RCR) | payer OTHER, SELFPAY ==
--- NOTE | 2023-01-03 12:48 | HP.PTEVAL_ITS ---
Patient's Visit Information Visit Information Visit Information: YASSINE BRICE is a 62 year old F referred to Physical Therapy by LALITA Vernon with a diagnosis of Vertigo. Date of Evaluation: 01/03/23 Physical Therapist: Danie Cotton, DPT, OCS, CSCS Visit Plan Frequency: 1-2x /Week Duration: 4-6 Weeks Plan: 1-2x/week for 4 weeks for 1. ensure L HD negative and positional vertigo abolished. 2. Consider neck strength and UT, scalene stretches for neck and postural correction 3. Consider general ex as patient bonilla. Subjective Subjective: Vertigo and VELA problems for two weeks. Started insidiously. Vertigo is if she rolls in bed or gets up too fast and lasts a few seconds. It spins for short duration. Went to doctor and said neck was swollen. Has been heating neck for VELA which helps that and neck nd head pain. Has had daily VELA and has needed to take advil. Has h/o VELA but worse since dizzyness. More VELA since vertigo. Has h/o neck pain but worse last two weeks. No regular exercises but tried saturnino. No obvious neck or head ex. Sleep is OK if she does not roll. 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 Hobbies include reading and walking and she is doing those although has cut down on walking due to dizzyness. Pain VELA.neck pain: Pain Intensity (Out of 10): 2 Pain Intensity Range: 0 and 6 Comment: neck pain constant Objective Objective: Walks safe adn I into PT with good balance, I transfers, steps reciprocal with no rail. cervical AROM WFL and without pain today. UE AROM WFL sensation UE WNL to gross light touch. UT and B scalenes stiff adn tend to contract during nystagmus. tender to touch. - R Hallpike + L hallpike up torsional nystagmus 10 seconds. treated with saturnino adn then - L Hallpike jonathan. Balance/Special Test Scores Functional Gait Assessment Score: 26 % Disability: 13.3400 Dizziness Score: 10 Goals Goal 1:: Abolish vertigo lying down at night for 3 days Goal Time Frame: 2-4 Weeks Goal 2:: Pt feel back to baseline neck and head aches and no dizzyness Goal Time Frame: 4-6 Weeks Goal 3:: I appropr management of neck pain VELA if not resolved with vertigo with strength exercises and stretches as needed. Goal Time Frame: 2-4 Weeks Rehabilitation Potential Physical Therapy Diagnosis: BPPV L PC Rehabilitation Potential: Good Anticipated Interventions Patient/Client Instruction: Educate patient on: Condition and Plan of Care For the Purpose of:: To increase tolerance to activity/condition/position Therapeutic Exercise to Include: Strength training, Postural training, Flexibilty training, Passive ROM and Active ROM Comment: positional For the Purpose of:: To decrease pain, To improve nutrient delivery to tissue, To increase tolerance to activity/condition/position, To improve ability of physical actions for home/community/work/leisure and To improve health of tissue Text: Thank you for the opportunity to evaluate your patient. For Medicare and Medicare HMO plans, please review the plan of care and approve it. It will need to be FAXED BACK to us at [phone] for Medicare purposes. For Medicare only, by signing this I certify the plan of care. Please let me know if there are questions or concerns regarding this plan of care. Physician Signature: Date:
--- NOTE | 2023-02-20 10:14 | HP.PT.NRP ---
Patient Information Patient Information: YASSINE BRICE was seen in my office for initial evaluation on 01/03/23. The following Plan of Care was established for this patient: POC Established Initial Frequency: 1-2x /Week Initial Duration: 4-6 Weeks Anticipated Interventions Patient/Client Instruction: Educate patient on: Condition and Plan of Care For the Purpose of:: To increase tolerance to activity/condition/position Therapeutic Exercise to Include: Strength training, Postural training, Flexibilty training, Passive ROM and Active ROM For the Purpose of:: To decrease pain, To improve nutrient delivery to tissue, To increase tolerance to activity/condition/position, To improve ability of physical actions for home/community/work/leisure and To improve health of tissue Last Seen Last Seen: This patient was last seen in our office 01/03/23. Pertinent comments regarding their Physical therapy will appear below: Pt seen for IE and POC established and was treated with positional treatment. She has not attended any further visits. At this point, it has been over 6 weeks and I will discontinue due to nonattendance. At this point I will be discontinuing this patient from physical therapy. I would be happy to see this patient again in the future if found appropriate by the physician. Thank you! Danie Cotton, DPT, OCS, CSCS Balance/Gait/Functional tests Balance/Special Test Scores Functional Gait Assessment Score: 26 % Disability: 13.3400 Dizziness Score: 10
== END 2023-01-03 19:00 | disposition home or self-care (01) ==
LOC: PT 11:54
PROVIDERS: PCP Nurse Practitioner Family; Referring Provider Nurse Practitioner Family; Visit Provider Nurse Practitioner Family
DX: R42 Dizziness and giddiness (principal)
CPT/HCPCS: 97161

== ENCOUNTER → 2023-02-07 | Outpatient (CLI) | payer OTHER, SELFPAY ==
[2023-02-07 07:58] LABS: Absolute Lymphocyte Count 1.79 X10^3/uL (0.83-4.51); Absolute Neutrophil Count 3.6 X10^3/uL (2.0-7.7); Basophil# 0.04 X10^3/uL; Basophil% 0.7 % (0-1); Eosinophil# 0.15 X10^3/uL; Eosinophils% 2.5 % (0-5); Hematocrit 42.7 % (37-47); Lymphocyte # 1.79 X10^3/ul (0.83-4.51); Lymphocyte % 29.4 % (19-41); Mean Corp Hgb Conc 32.8 g/dL (32-36); Mean Corpuscular Hgb 29.5 pg (27.0-32.0); Mean Corpuscular Volume 89.9 fL (81-99); Monocyte# 0.54 X10^3/uL; Monocyte% 8.9 % (0-10); NRBC Flagged by Analyzer 0 % (0-5); Neutrophil # 3.56 X10^3/uL (2.7-7.7); Neutrophil % 58.3 % (47-70); Platelet Count 284 K/mm3 (150-450); RBC Distribution Width CV 12.6 % (11.6-14.6); RBC Distribution Width SD 41.6 fl (35.1-43.9); Red Blood Count 4.75 M/mm3 (4.2-5.4); White Blood Count 6.1 K/mm3 (4.4-11.0)
[2023-02-07 08:39] LABS: ALB/GLOB Ratio 0.9 RATIO (0.9-2.4); AST(SGOT) 17 U/L (15-37); Alanine Aminotransfer ALT/SGPT 21 U/L (13-56); Albumin, Serum 3.7 g/dL (3.2-5.0); Alkaline Phosphatase 105 U/L (45-117); Anion Gap 1 (5-15); BUN 8 mg/dL (7-18); BUN/Creat Ratio 10.6 RATIO (10-20); Chloride 104 mmol/L (98-107); Cholesterol 201 mg/dL (200); Creatinine, Serum 0.75 mg/dL (0.55-1.02); EST Glomerular Filtration Rate 83 mL/min (>60); Est Glom Filt Rate - Afr Amer 100 mL/min (>60); Globulin 3.9 g/dL (2.2-4.2); Glucose 108 mg/dL (74-106); High Density Lipoprotein 68 mg/dL; Potassium 4.2 mmol/L (3.5-5.1); Protein, Total 7.6 g/dL (6.4-8.2); Sodium Level 133 mmol/L (136-145); Thyroid Stim Hormone (TSH) 1.02 uIU/mL (0.358-3.74); Triglycerides 134 mg/dL; Very Low Density Lipoprotein 27 mg/dL (5-40)
[2023-02-07 09:54] LABS: Vitamin D,25 Hydroxy 89.8 ng/mL
== END | disposition home or self-care (01) ==
LOC: LAB 06:42
PROVIDERS: PCP Nurse Practitioner Family; Referring Provider Nurse Practitioner Family; Visit Provider Nurse Practitioner Family
DX: I10 Essential (primary) hypertension (principal); R42 Dizziness and giddiness; E55.9 Vitamin D deficiency, unspecified; F41.9 Anxiety disorder, unspecified; Z13.220 Encounter for screening for lipoid disorders
CPT/HCPCS: 36415; 80053; 80061; 82306; 84443; 85025

== ENCOUNTER → 2023-03-17 | Outpatient (CLI) | payer OTHER, SELFPAY ==
[2023-03-17 10:14] LABS: Absolute Neutrophil Count 4.3 X10^3/uL (2.0-7.7); Basophil# 0.03 X10^3/uL; Basophil% 0.5 % (0-1); Hematocrit 43.4 % (37-47); Lymphocyte % 23.2 % (19-41); Mean Corp Hgb Conc 32.3 g/dL (32-36); Mean Corpuscular Hgb 29.2 pg (27.0-32.0); Mean Corpuscular Volume 90.4 fL (81-99); Mean Platelet Vol. 9.1 fl (6.2-12.0); Monocyte# 0.62 X10^3/uL; Monocyte% 9.6 % (0-10); NRBC Flagged by Analyzer 0 % (0-5); Neutrophil % 66.4 % (47-70); Platelet Count 255 K/mm3 (150-450); RBC Distribution Width CV 12.5 % (11.6-14.6); RBC Distribution Width SD 41.1 fl (35.1-43.9); White Blood Count 6.5 K/mm3 (4.4-11.0)
[2023-03-17 10:57] LABS: BNP,B-Type NATRIURETIC PEPTIDE 9.6 pg/mL (0-100)
[2023-03-17 11:05] LABS: Anion Gap 6 (5-15); BUN 9 mg/dL (7-18); BUN/Creat Ratio 11.4 RATIO (10-20); Calcium,Total 9.8 mg/dL (8.5-10.1); Chloride 101 mmol/L (98-107); Creatinine, Serum 0.79 mg/dL (0.55-1.02); EST Glomerular Filtration Rate 78 mL/min (>60); Est Glom Filt Rate - Afr Amer 95 mL/min (>60); Glucose 99 mg/dL (74-106); Potassium 4.7 mmol/L (3.5-5.1); Sodium Level 136 mmol/L (136-145); Thyroid Stim Hormone (TSH) 1.33 uIU/mL (0.358-3.74)
== END | disposition home or self-care (01) ==
LOC: LAB 09:03
PROVIDERS: PCP Nurse Practitioner Family; Referring Provider Nurse Practitioner Gerontology; Visit Provider Nurse Practitioner Gerontology
DX: R53.83 Other fatigue (principal); R06.00 Dyspnea, unspecified
CPT/HCPCS: 36415; 80048; 83880; 84443; 85025

== ENCOUNTER → 2023-09-23 | Outpatient (CLI) | payer OTHER, SELFPAY ==
--- NOTE | 2023-09-23 15:59 | BD_ITS ---
STUDY: DUAL ENERGY X-RAY ABSORPTIOMETRY / DXA REASON FOR EXAM: Female, 63 years old. [id number] TECHNIQUE: Bone Mineral Density (BMD) measurements of lumbar spine and bilateral hips were obtained. COMPARISON: Comparison is made with prior study dated September 13, 2020. FINDINGS: Lumbar Spine (L1-L4): g/cm2 (0.988) / T-score (-0.5) / Z-score (1.1) Findings are suggestive of normal bone density with a low fracture risk. Left Femur Total: g/cm2 (0.931) / T-score (-0.1) / Z-score (1.0) Left Femoral Neck: g/cm2 (0.763) / T-score (-0.8) / Z-score (0.7) Right Femur Total: g/cm2 (0.911) / T-score (-0.3) / Z-score (0.9) Right Femoral Neck: g/cm2 (0.715) / T-score (-1.2) / Z-score (0.2) The T-Scores on the most recent prior examination were: Lumbar Spine (L1-L4): There has been worsening of bone density since the previous examination. Left Femur Total: which represents an improvement of 8%. Right Femur Total: which represents an improvement of 7.9%. BD/Dexa Bone Density Study IMPRESSION: The patient is considered osteopenic as outlined below according to World [employer]cos Organization (WHO) criteria with a low fracture risk. There has been improvement of bone density since the previous examination. Reference Information: The T-score is the number of standard deviations above or below the standard which is normal for young adults at their peak bone mineral density. The World Health Organization (WHO) interprets the T-scores as follows: Above -1 Normal bone density Between -1 and -2.5 Osteopenia Equal to / or below -2.5 Osteoporosis As a practical clinical guideline, osteopenia may be graded as follows: Mild -1 through -1.5 Moderate -1.6 through -2.0 Severe -2.1 through -2.4 The Z-score is the number of standard deviations above or below age-matched controls. A Z-score of less than -1.5 would be considered abnormal. References: 1. NIH Osteoporosis and Related Bone Diseases www osteo.org 2. International Society for Clinical Densitometry www iscd.org 3. National Osteoporosis Foundation www nof.org Electronically Signed: Logan Pope MD at 15:21 EDT ,
== END | disposition home or self-care (01) ==
PROVIDERS: PCP Nurse Practitioner Family; Referring Provider Nurse Practitioner Family; Visit Provider Nurse Practitioner Family
DX: Z78.0 Asymptomatic menopausal state (principal)
CPT/HCPCS: 77080

== ENCOUNTER 2023-10-17 12:30 | Outpatient (RCR) | payer OTHER, SELFPAY ==
--- NOTE | 2023-10-10 07:36 | HP.PTEVAL ---
Patient's Visit Information Visit Information Visit Information: YASSINE BRICE is a 63 year old F referred to Physical Therapy by LALITA Vernon with a diagnosis of dizzyness. Date of Evaluation: 10/10/23 Physical Therapist: Danie Cotton, DPT, OCS, CSCS Visit Plan Frequency: 1-2x /Week Duration: 2-4 Weeks Plan: 1-2x/week as needed for up to 4 weeks for positional treatemnts and activity reintegration as needed/balance. Subjective Subjective: 2-3 weeks ago started vertigo which she has had in the past. It acts up now and then. Was getting out of bed. Symptoms were spinning for a minute. [place] Ok after that . Getting vertigo now getting out of bed, bending down. fell one time hitting arm on mantle. One time turning in shower for a number of minutes. Holds on when it happens. Also happens getting hair done this week. Some days cannot walk straight on bad days. Had it last night trying Saturnino. Sleep is OK. 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 Hobbies: walking and shopping and wouldn't do them on a bad day. Basic ADL are going OK when not spinning. Objective Objective: Walks I into PT with good balance. Trasnfers easily, Steps with one rail, hesitant to look up walking but otherwise no problems. Full cervical and UE AROM WFL and no pain. Strength UE 4/5 without myotomal problems. + R HD, treated with saturnino adn then -. + L HD treated with saturnino and not retested. Both positive tests were up torsional immediate nystagmus and 5-7 sec duration. Bruise on L upper arm from recent fall. Balance/Special Test Scores Functional Gait Assessment Score: 28 % Disability: 6.6700 Dizziness Score: 30 Goals Goal 1:: abolish dizzyness in bed and bedning over Goal Time Frame: 2-4 Weeks Goal 2:: 30 FGA Goal Time Frame: 2-4 Weeks Goal 3:: Resume walking for fitness Goal Time Frame: 2-4 Weeks Goal 4:: DHI score 4 or less Goal Time Frame: 2-4 Weeks Rehabilitation Potential Physical Therapy Diagnosis: positional vertigo limiting comfotable,safe function. Rehabilitation Potential: Good Anticipated Interventions Patient/Client Instruction: Educate patient on: Condition For the Purpose of:: To increase tolerance to activity/condition/position, To improve ability of physical actions for home/community/work/leisure and To improve gait and locomotor functions Therapeutic Exercise to Include: Balance training Comment: positional ex and maneuvers For the Purpose of:: To increase tolerance to activity/condition/position and To improve gait and locomotor functions Text: Thank you for the opportunity to evaluate your patient. For Medicare and Medicare HMO plans, please review the plan of care and approve it. It will need to be FAXED BACK to us at [phone] for Medicare purposes. For Medicare only, by signing this I certify the plan of care. Please let me know if there are questions or concerns regarding this plan of care. Physician Signature: Date:
--- NOTE | 2024-01-05 08:43 | HP.PT.NRP ---
Patient Information Patient Information: YASSINE BRICE was seen in my office for initial evaluation on 10/10/23. The following Plan of Care was established for this patient: POC Established Initial Frequency: 1-2x /Week Initial Duration: 2-4 Weeks Anticipated Interventions Patient/Client Instruction: Educate patient on: Condition For the Purpose of:: To increase tolerance to activity/condition/position, To improve ability of physical actions for home/community/work/leisure and To improve gait and locomotor functions Therapeutic Exercise to Include: Balance training For the Purpose of:: To increase tolerance to activity/condition/position and To improve gait and locomotor functions Last Seen Last Seen: This patient was last seen in our office 10/17/23. Pertinent comments regarding their Physical therapy will appear below: Pt seen 2 visits of POC and did not schedule or attend any further visits in POC. At this point, it has been over 2 months and I will discontinue from my care due to nonattendance. At this point I will be discontinuing this patient from physical therapy. I would be happy to see this patient again in the future if found appropriate by the physician. Thank you! Danie Cotton, DPT, OCS, CSCS Balance/Gait/Functional tests Balance/Special Test Scores Functional Gait Assessment Score: 28 % Disability: 6.6700 Dizziness Score: 30
== END 2023-10-17 19:00 | disposition home or self-care (01) ==
LOC: PT 12:30
PROVIDERS: PCP Nurse Practitioner Family; Referring Provider Nurse Practitioner Family; Visit Provider Nurse Practitioner Family
DX: R42 Dizziness and giddiness (principal)
CPT/HCPCS: 97161; 97530

== ENCOUNTER → 2023-12-29 | Outpatient (CLI) | payer OTHER, SELFPAY ==
--- NOTE | 2023-12-29 08:32 | BI_ITS ---
MAMMOGRAPHY - BILATERAL SCREENING REASON FOR EXAM: Female, 63 years old. Routine annual screening examination. PERTINENT HISTORY: Grandmother with breast cancer. Aunt with breast cancer. Prior left stereotactic breast biopsy. TECHNIQUE: Digital bilateral breast crystal (3D mammographic acquisition) in the CC and MLO projections. 2-D mediolateral oblique (MLO) and craniocaudad (CC) views of both breasts were obtained. CAD: Full Field Digital Mammography with Computer Added Detection was performed. COMPARISON: Comparison is made with prior study dated December 10, 2022 and December 07, 2021. FINDINGS: Breast Composition: The breasts are heterogeneously dense, which may obscure small masses. There are no dominant masses or suspicious calcifications. A tissue clip marker is once again seen in the deep inferior medial aspect of the left breast. Stable fat-containing axillary lymph nodes. No other significant abnormalities are identified. There has been no significant change since the prior study. BI/SCRN MAMM (CAD)W/CRYSTAL BILAT IMPRESSION: Stable bilateral screening mammogram. Yearly follow-up mammogram recommended. (A) ASSESSMENT CATEGORY: BIRADS Category 2: Benign. A letter regarding these results will be sent to the patient by the facility within 30 days. Approximately 10% of breast cancers are not detected by mammography. A normal mammogram should not delay biopsy of a clinically suspicious abnormality. [id number] Electronically Signed: Logan Pope MD at 9:52 EDT ,
== END | disposition home or self-care (01) ==
LOC: OPBI 08:32
PROVIDERS: PCP Nurse Practitioner Family; Referring Provider Nurse Practitioner Women's Health; Visit Provider Nurse Practitioner Women's Health
DX: Z12.31 Encounter for screening mammogram for malignant neoplasm of breast (principal)
CPT/HCPCS: 77063; 77067

== ENCOUNTER → 2024-12-17 | Outpatient (CLI) | payer OTHER, SELFPAY ==
--- OUTSIDE RECORDS SUMMARY | 2024-12-17 06:11 | XMS RPT_ITS | CCD ---
Author Organization [facility] Care Team Providers Care Pododermatologist Name Role Phone Hortencia Flores Unavailable Dilan Shah Unavailable Nuzhat Hughes Unavailable Shanice Nunez Unavailable Corinne Rosa Unavailable Sean Subramanian Unavailable Anna Monzon Unavailable Unavailable Leatha Babb Unavailable Unavailable Blue Joe Unavailable Unavailable BEBETO Matos Unavailable Unavailable Slarb, Lakisha Unavailable Unavailable Unavailable Unavailable Hortencia Flores Unavailable Dilan Shah Unavailable Nuzhat Hughes Unavailable Shanice Nunez Unavailable Corinne Rosa Unavailable Sean Subramanian Unavailable Blue Joe Unavailable Unavailable Leatha Babb Unavailable Unavailable Slarb, Lakisha Unavailable Unavailable Unavailable Unavailable Blue Joe Unavailable Unavailable Blue Babb Unavailable Unavailable Anna Monzon Unavailable Unavailable BEBETO Matos Unavailable Unavailable Chantal Funez Unavailable Unavailable Hortencia Flores CNP Unavailable Dilan Shah Unavailable Nuzhat Hughes Unavailable Dr. Shanice Nunez MD Unavailable Dr. Corinne Rosa MD Unavailable Dr. Sean Subramanian Unavailable Armin PROSTHETICS ASSISTANT, Chantal Unavailable Unavailable Skinny, Leatha Unavailable Unavailable Skinny PROSTHETICS ASSISTANT, Blue Unavailable Unavailable Slarb PROSTHETICS ASSISTANT, Lakisha Unavailable Unavailable Unavailable Unavailable Alka Graham MD Unavailable Cideea Hortencia Unavailable Ciesa Hortencia Unavailable Cideea RADIO PERFORMER, RADIO PERFORMER-C Hortencia Referring Provider Dr. Reggie Sparks Attending Provider OPAL Cotton-C Katerin Primary Care Provider Yury BIOLOGICS SPECIALIST, Katerin Unavailable [employer] LAUNDRY WORKER, Kayela Unavailable Unavailable Ciesa, Hortencia Attending Unavailable Ciesa, Hortencia Referring Unavailable Ciesa, Hortencia Consulting Unavailable OPAL Cotton-C Katerin Primary Care Provider [phone] OPAL Cotton-C Katerin Referring Provider ROSEANN Mcdonald Attending Provider Cideea Hortencia Unavailable Alka Graham MD Unavailable Dilan Shah Unavailable Nuzhat Hughes Unavailable Dr. Shanice Nunez MD Unavailable Dr. Corinne Rosa MD Unavailable Dr. Sean Subramanian Unavailable [employer] LAUNDRY WORKER, Kayela Unavailable Unavailable Skinny, Leatha Unavailable Unavailable Skinny PROSTHETICS ASSISTANT, Blue Unavailable Unavailable Yury BIOLOGICS SPECIALIST, Katerin Unavailable Slarb PROSTHETICS ASSISTANT, Lakisha Unavailable Unavailable Unavailable Unavailable Yury BIOLOGICS SPECIALIST, Katerin Unavailable [facility], [facility] Unavailable Ciesa, Hortencia Unavailable Yury RADIO PERFORMER-C Katerin Primary Care Provider [phone] OPAL Cotton-C Katerin Referring Provider Jeanette JOSEPH, OPAL-Clara Garcia Attending Provider [phone] Perry JOSEPH, OPAL-C Leigh Attending Provider Yury, Katerin Referring Unavailable Ellen Yan Attending Unavail able Yury, Katerin Primary Care Unavailable Leigh Amador NP Attending Unavailable Yury, Katerin Referring Unavailable Yury, Katerin Primary Care Unavailable Yury, Katerin Referring Unavailable Ellen Yan Attending Unavail able Yury, Katerin Primary Care Unavailable Radha Reid NP Referring Unavailable Yury, Katerin Primary Care Unavailable Jeanette RADIO PERFORMERRadha Attending Unavailable Yury, Katerin Referring Unavailable Yury, Katerin Primary Care Unavailable Yury, Katerin Attending Unavailable Yury, Katerin Attending Unavailable Yury, Katerin Referring Unavailable Yury, Katerin Primary Care Unavailable Leigh Amador NP Attending Unavailable Yury, Katerin Referring Unavailable Yury, Katerin Primary Care Unavailable Yury RADIO PERFORMER-CKaterin Primary Care Provider [phone] Yury JOSEPH-CKaterin Referring Provider Ellen Yan Attending Provider Allergies Allergy Classification Reported Allergen(s) Allergy Type Date of Onset Reaction(s) Facility Minocycline (11 sources) Minocycline Drug Allergy [facility]; [facility] Work Phone: (20 sources) Latex Exam Gloves *MEDICAL DEVICES AND SUPPLIES*; Translations: [Latex Exam Gloves *MEDICAL DEVICES AND SUPPLIES*] drug allergy [facility] Work Phone: (1 source) allergy to substance [facility] Work Phone: (1 source) allergy to substance [facility] Work Phone: (1 source) allergy to substance [facility] Work Phone: (1 source) allergy to substance [facility] Work Phone: (1 source) allergy to substance [facility] Work Phone: (20 sources) Minocycline Drug Allergy [facility] Work Phone: (6 sources) Adhesive Tape; Translations: [adhesive tape] Allergy to substance 2 [facility] [place] Comment on above: FROM PLASTIC TAPE (5 sources) Latex Allergy to substance 1 [facility] [place] (1 source) Allergy to drug (finding) [facility]; [facility] Work Phone: (1 source) Allergy to substance (finding) [facility]; [facility] Work Phone: (1 source) Allergy to drug (finding) [facility]; [facility] Work Phone: (1 source) Allergy to substance (finding) [facility]; [facility] Work Phone: (1 source) Allergy to drug (finding) [facility]; [facility] Work Phone: (1 source) Allergy to substance (finding) [facility]; [facility] Work Phone: (1 source) Allergy to drug (finding) [facility]; [facility] Work Phone: (1 source) Allergy to substance (finding) [facility]; [facility] Work Phone: (1 source) Allergy to drug (finding) [facility]; [facility] Work Phone: (1 source) Allergy to substance (finding) [facility]; [facility] Work Phone: (1 source) Latex Drug allergy (disorder) 5 [facility] Medications Current Medications Medication Drug Class(es) Dates Sig (Normalized) Sig (Original) ALPRAZolam 0.5 mg oral tablet (20 sources) Benzodiazepine Start: 12-11-2020 take 1 tablet by mouth once daily as needed for anxiety Alprazolam 0.5 mg tablet Active 0.5 mg PO DAILY NEEDED as needed for Anxiety 11 12December 11, 2020 8:32am Start: 04-18-2020 take 1 tablet by mic th once daily as needed for anxiety ALPRAZolam 0.5 MG Oral Tablet 1 (one) Tablet qd prn only for anxiety and panic for 0 days Quantity: 30 {Tablet} Refills: 0 Ordered: 29-Sep-2020 Hortencia Flores CNP, CNP, Mary E Start : 29-Sep-2020 Active Comments: [place] Anxiety F41.9 [facility] LUCILA NG Start: 11-20-2019 take 1 tablet by mic th once daily as needed for anxiety ALPRAZolam 0.5 MG Oral Tablet 1 (one) Tablet qd prn only for anxiety and panic for 0 days Quantity: 30 {Tablet} Refills: 0 Ordered: 20-Nov-2019 Blue Babb LPN Start : 20-Nov-2019 Active Comments: [place] Anxiety Start: 02-26-2019 take 1 tablet by mic th once daily as needed for anxiety ALPRAZolam 0.5 MG Oral Tablet 1 (one) Tablet qd prn only for anxiety and panic for 0 days Quantity: 30 {Tablet} Refills: 0 Ordered: 26-Feb-2019 Hortencia Flores CNP, CNP, Mary E Start : 26-Feb-2019 Active Comments: [place] Anxiety Start: 09-28-2018 End: 12-11-2020 Alprazolam 0.5 mg tablet Discontinued PO 30 8 September 28, 2018 12:00am December 11, 2020 8:33am Start: 09-28-2018 End: 12-11-2020 Alprazolam Discontinued PO 3 0 8 September 27, 2018 11:00pm December 11, 2020 7:33am Start: 04-27-2018 take 1 tablet by mic th every six hours as needed for anxiety Xanax 0.5 MG Oral Tablet 1 (one) Tablet q6hrs prn anxiety for 0 days Quantity: 30 {QS} Refills: 0 Ordered: 27-Apr-2018 Hortencia Flores CNP, CNP, Mary E Start : 27-Apr-2018 Active Comments: [place] Start: 01-02-2018 take 1 tablet by mic th every six hours as needed for anxiety Xanax 0.5 MG Oral Tablet 1 (one) Tablet q6hrs prn anxiety for 0 days Quantity: 30 {QS} Refills: 0 Ordered: 02-Jan-2018 Hortencia Flores CNP, CNP, Mary E Start : 02-Jan-2018 Active Comment on above: [place] [facility] Anxiety Oar[place] runThirty [place] Anxiety F4 1.9 Thirty [place] Anxiety F4 1.9 [facility] MDAVIS,PROSTHETICS ASSISTANT [place] Anxiety F4 1.9 Ten calcium citrate 1190 mg / cholecalciferol 0.005 mg oral tablet (20 sources) Vitamin D Start: 12-25-2021 Calcium Citrate-Vitamin D3 (Citracal Regular) 250 mg-5 mcg (200 unit) tablet Active 1 {tbl} PO DAILY December 25, 2021 12:00am Start: 03-01-2016 End: 02-14-2017 Start: 03-01-2016 End: 02-14-2017 take 1 tablet by mouth twice daily Citracal + D 315-200 MG-UNIT Oral Tablet 1 (one) Tablet bid for 0 days Quantity: 60 {Tablet} Refills: 0 Ordered: 01-Mar-2016 Lakisha Engel LPN Start : 01-Mar-2016 End : 14-Feb-2017 Discontinued Comments: This order discontinued per [facility]. Comment on above: This order discontin ued per [facility]. cholecalciferol 0.025 mg chewable tablet (20 sources) Vitamin D Start: 017 take 2 tablets by mouth once daily Cholecalciferol (Vitamin D3) 1,000 UNIT tablet,chewable Active 2000 U PO DAILY July 06, 2016 12:00am Start: 07-06-2016 take 2000 [IU] by mo [facility] once daily Cholecalciferol (Vitamin D3) Active 2000 UNIT PO DAILY July 05, 2016 11:00pm Start: 03-01-2016 End: 02-14-2017 Start: 03-01-2016 End: 02-14-2017 take 2 capsules by mouth once daily Vitamin D3 1000 UNIT Oral Capsule 2 (two) Capsule Capsule daily for 0 days Quantity: 60 {QS} Refills: 3 Ordered: 14-Feb-2017 Lakisha Engel LPN Start : 01-Mar-2016 End : 14-Feb-2017 Inactive take 2 tablets by mouth once Vit woodall D (Cholecalciferol) 1000 UNIT Oral Tablet 2tab (1000 UNIT) Active hydroCHLOROthiazide 12.5 mg / lisinopril 10 mg oral tablet (20 sources) Thiazide Diuretic, Angiotensin Converting Enzyme Inhibitor Start: 09-30-2018 End: 03-08-2024 take 1 tablet by mouth once daily Lisinopril-Hydrochlorothiazide 10-12.5 mg tablet Active 0 .ROUTE .COMPLEX March 08, 2024 9:33am TAKE 1 TABLET BY MOUTH EVERY DAY Start: 09-30-2018 End: 03-18-2023 take 1 tablet by mouth once daily Lisinopril-Hydrochlorothiazide Active 0 .ROUTE .COMPLEX March 18, 2023 3:37pm TAKE 1 TABLET BY MOUTH EVERY DAY 24 hr metoprolol succinate 50 mg extended release oral tablet (20 sources) beta-Adrenergic Salazar Start: 09-17-2024 take 1 tablet by mouth once daily Metoprolol Succinate 50 mg tablet extended release 24 hr Active 50 mg PO DAILY September 17, 2024 8:18am Start: 04-11-2020 Start: 12-31-2019 End: 09-17-2024 take 1 tablet by mouth once daily Metoprolol Succinate (Toprol Xl) 25 mg tablet extended release 24 hr Discontinued 25 mg PO DAILY November 28, 2023 8:53am September 17, 2024 8:18am Multivitamin 1 EACH tablet (1 source) Start: 08-04-2018 Multivitamin 1 EACH tablet Active 1 NMA PO DAILY August 04, 2018 12:00am Multivitamin preparation (4 sources) Start: 08-04-2018 Multivitamin A ctive 1 EACH PO DAILY August 03, 2018 11:00pm Start: 08-04-2018 Multivitamin A ctive 1 EACH PO DAILY August 04, 2018 12:00am Completed/Discontinued Medications Medication Drug Class(es) Dates Sig (Normalized) Sig (Original) acetaminophen 500 mg / HYDROcodone bitartrate 5 mg oral tablet (20 sources) Opioid Agonist Start: 11-30-2007 End: 08-08-2008 Start: 11-30-2007 End: 08-08-2008 take 1-2 tablets by mouth every four to six hours as needed VICODIN, 5-500MG (Oral Tablet) 1 to 2 tabs Tablet q 4-6 hrs, prn for 0 days Quantity: 60 {Tablet} Refills: 0 Ordered: 30-Nov-2007 Nila Masters Start : 30-Nov-2007 End : 08-Aug-2008 Discontinued acetaminophen 325 mg / oxyCODONE hydrochloride 5 mg oral tablet (5 sources) Opioid Agonist Start: 08-10-2018 End: 08-17-2018 Oxycodone-Acetaminophen 1 TABLET tablet Discontinued 1 - 2 {tbl} PO EVERY 4 HOURS NEEDED as needed for Pain 31 10August 10, 2018 12:00am August 16, 2018 12:00am August 17, 2018 12:07am Start: 08-10-2018 End: 08-17-2018 take 1 tablet by mouth every four hours as needed Oxycodone-Acetaminophen Discontinued 1 - 2 TABLET PO EVERY 4 HOURS NEEDED 31 10August 09, 2018 11:00pm August 16, 2018 11:07pm amitriptyline hydrochloride 25 mg oral tablet (20 sources) Tricyclic Antidepressant Start: 07-31-2022 Start: 08-02-2021 take 1-2 tablets by mouth once daily at bedtime Amitriptyline HCl 25 MG Oral Tablet 1-2 Tablet qhs for 180 days Quantity: 180 {Tablet} Refills: 3 Ordered: 02-Aug-2021 Sudha Caro DO Start : 02-Aug-2021 Active Start: 08-09-2020 take 1-2 tablets by mouth once daily at bedtime Amitriptyline HCl 25 MG Oral Tablet 1-2 Tablet qhs for 180 days Quantity: 180 {Tablet} Refills: 3 Ordered: 09-Aug-2020 Hortencia Flores CNP, CNP, Mary E Start : 09-Aug-2020 Active Start: 08-19-2019 take 1-2 tablets by mouth once daily at bedtime Amitriptyline HCl 25 MG Oral Tablet 1-2 Tablet qhs for 180 days Quantity: 180 {Tablet} Refills: 3 Ordered: 19-Aug-2019 Hortencia Flores CNP, CNP, Mary E Start : 19-Aug-2019 Active Start: 08-16-2018 take 1-2 tablets by mouth once daily at bedtime Amitriptyline HCl 25 MG Oral Tablet 1-2 Tablet qhs for 180 days Quantity: 180 {Tablet} Refills: 3 Ordered: 16-Aug-2018 Hortencia Flores CNP, CNP, Mary E Start : 16-Aug-2018 Active Start: 08-25-2017 take 1-2 tablets by mouth once daily at bedtime Amitriptyline HCl 25 MG Oral Tablet 1-2 Tablet qhs for 180 days Quantity: 180 {Tablet} Refills: 3 Ordered: 25-Aug-2017 Hortencia Flores CNP, CNP, Mary E Start : 25-Aug-2017 Active Start: 08-18-2015 take 1 tablet by mic th at bedtime Amitriptyline 50 MG tablet Active 50 mg PO AT BEDTIME August 18, 2015 12:00am amoxicillin 875 mg / clavula ronal 125 mg oral tablet (20 sources) Penicillin-class Antibacterial Start: 01-07-2008 End: 01-18-2008 Start: 01-07-2008 End: 01-18-2008 take 1 tablet by mouth twice daily AUGMENTIN, 875-125MG (Oral Tablet) 1 (one) Tablet bid for 3 days Quantity: 6 {Tablet} Refills: 0 Ordered: 07-Jan-2008 Hortencia Flores Mary Start : 07-Jan-2008 End : 18-Jan-2008 Inactive atenolol 25 mg oral tablet (20 sources) beta-Adrenergic Salazar Start: 10-19-2018 End: 04-18-2020 Start: 10-19-2018 End: 11-24-2015 take 1 tablet by mouth once daily Atenolol 25 MG Oral Tablet 1 (one) Tablet daily for 90 days Quantity: 90 {QS} Refills: 3 Ordered: 19-Oct-2018 Mark SALAZAR GisellColumba Flores CNP Hortencia Waterman Start : 19-Oct-2018 End : 24-Nov-2015 Active Start: 10-19-2018 End: 11-24-2015 take 1 tablet by mouth once daily Atenolol 25 MG Oral Tablet 1 (one) Tablet daily for 90 days Quantity: 90 {QS} Refills: 3 Ordered: 19-Oct-2018 Mark SALAZAR GisellColumba Flores CNP Hortencia Waterman Start : 19-Oct-2018 End : 24-Nov-2015 Active Start: 10-19-2018 End: 11-24-2015 take 1 tablet by mouth once daily Atenolol 25 MG Oral Tablet 1 (one) Tablet daily for 90 days Quantity: 90 {QS} Refills: 3 Ordered: 19-Oct-2018 Tdmariya SALAZAR Gisell Cideemariya SALAZAR Hortencia Waterman Start : 19-Oct-2018 End : 24-Nov-2015 Active Start: 10-19-2018 End: 11-24-2015 take 1 tablet by mouth once daily Atenolol 25 MG Oral Tablet 1 (one) Tablet daily for 90 days Quantity: 90 {QS} Refills: 3 Ordered: 19-Oct-2018 Hortencia Flores CNP, CNP, Mary E Start : 19-Oct-2018 End : 24-Nov-2015 Active Start: 10-19-2018 End: 11-24-2015 take 1 tablet by mouth once daily Atenolol 25 MG Oral Tablet 1 (one) Tablet daily for 90 days Quantity: 90 {QS} Refills: 3 Ordered: 19-Oct-2018 Hortencia Flores CNP, CNP, Mary E Start : 19-Oct-2018 End : 24-Nov-2015 Active Start: 10-19-2018 End: 11-24-2015 take 1 tablet by mouth once daily Atenolol 25 MG Oral Tablet 1 (one) Tablet daily for 90 days Quantity: 90 {QS} Refills: 3 Ordered: 19-Oct-2018 Hortencia Flores CNP, CNP, Mary E Start : 19-Oct-2018 End : 24-Nov-2015 Active Start: 10-19-2018 End: 11-24-2015 take 1 tablet by mouth once daily Atenolol 25 MG Oral Tablet 1 (one) Tablet daily for 90 days Quantity: 90 {QS} Refills: 3 Ordered: 19-Oct-2018 Hortencia Flores CNP, CNP, Mary E Start : 19-Oct-2018 End : 24-Nov-2015 Active Start: 10-19-2018 End: 11-24-2015 take 1 tablet by mouth once daily Atenolol 25 MG Oral Tablet 1 (one) Tablet daily for 90 days Quantity: 90 {QS} Refills: 3 Ordered: 19-Oct-2018 Hortencia Flores CNP, CNP, Mary E Start : 19-Oct-2018 End : 24-Nov-2015 Active Start: 10-19-2018 End: 11-24-2015 take 1 tablet by mouth once daily Atenolol 25 MG Oral Tablet 1 (one) Tablet daily for 90 days Quantity: 90 {QS} Refills: 3 Ordered: 19-Oct-2018 Hortencia Flores CNP, CNP, Mary E Start : 19-Oct-2018 End : 24-Nov-2015 Active Start: 10-19-2018 End: 11-24-2015 take 1 tablet by mouth once daily Atenolol 25 MG Oral Tablet 1 (one) Tablet daily for 90 days Quantity: 90 {QS} Refills: 3 Ordered: 19-Oct-2018 Hortencia Flores CNP, CNP, Mary E Start : 19-Oct-2018 End : 24-Nov-2015 Active Start: 10-19-2018 End: 11-24-2015 take 1 tablet by mouth once daily Atenolol 25 MG Oral Tablet 1 (one) Tablet daily for 90 days Quantity: 90 {QS} Refills: 3 Ordered: 19-Oct-2018 Hortencia Flores CNP, CNP, Mary E Start : 19-Oct-2018 End : 24-Nov-2015 Active Start: 10-12-2017 End: 11-24-2015 take 1 tablet by mouth once daily Atenolol 25 MG Oral Tablet 1 (one) Tablet daily for 90 days Quantity: 90 {QS} Refills: 3 Ordered: 12-Oct-2017 Hortencia Flores CNP, CNP, Mary E Start : 12-Oct-2017 End : 24-Nov-2015 Active Start: 10-12-2017 End: 11-24-2015 take 1 tablet by mouth once daily Atenolol 25 MG Oral Tablet 1 (one) Tablet daily for 90 days Quantity: 90 {QS} Refills: 3 Ordered: 12-Oct-2017 Hortencia Flores CNP, CNP, Mary E Start : 12-Oct-2017 End : 24-Nov-2015 Active Start: 10-12-2017 End: 11-24-2015 take 1 tablet by mouth once daily Atenolol 25 MG Oral Tablet 1 (one) Tablet daily for 90 days Quantity: 90 {QS} Refills: 3 Ordered: 12-Oct-2017 Hortencia Flores CNP, CNP, Mary E Start : 12-Oct-2017 End : 24-Nov-2015 Active Start: 10-12-2017 End: 11-24-2015 take 1 tablet by mouth once daily Atenolol 25 MG Oral Tablet 1 (one) Tablet daily for 90 days Quantity: 90 {QS} Refills: 3 Ordered: 12-Oct-2017 Hortencia Flores CNP, CNP, Mary E Start : 12-Oct-2017 End : 24-Nov-2015 Active Start: 10-12-2017 End: 11-24-2015 take 1 tablet by mouth once daily Atenolol 25 MG Oral Tablet 1 (one) Tablet daily for 90 days Quantity: 90 {QS} Refills: 3 Ordered: 12-Oct-2017 Hortencia Flores CNP, CNP, Mary E Start : 12-Oct-2017 End : 24-Nov-2015 Active Start: 10-12-2017 End: 11-24-2015 take 1 tablet by mouth once daily Atenolol 25 MG Oral Tablet 1 (one) Tablet daily for 90 days Quantity: 90 {QS} Refills: 3 Ordered: 12-Oct-2017 Hortencia Flores CNP, CNP, Mary E Start : 12-Oct-2017 End : 24-Nov-2015 Active Start: 10-12-2017 End: 11-24-2015 take 1 tablet by mouth once daily Atenolol 25 MG Oral Tablet 1 (one) Tablet daily for 90 days Quantity: 90 {QS} Refills: 3 Ordered: 12-Oct-2017 Hortencia Flores CNP, CNP, Mary E Start : 12-Oct-2017 End : 24-Nov-2015 Active Start: 08-18-2015 End: 09-30-2018 take 1 tablet by mouth once daily Atenolol 25 MG tablet Discontinued 25 mg PO DAILY August 18, 2015 12:00am September 30, 2018 9:30am augmented betamethasone 0.00 05 mg/mg topical ointment (20 sources) Corticosteroid Start: 05-14-2020 End: 06-26-2020 Start: 05-14-2020 End: 06-26-2020 Diprolene 0.05 % External Oi ntment 1 (one) Application bid for 0 days Quantity: 50 {Gram} Refills: 0 Ordered: 26-Jun-2020 Blue Babb LPN Start : 14-May-2020 End : 26-Jun-2020 Inactive Start: 05-14-2020 End: 04-18-2020 Diprolene 0.05 % External Oi ntment 1 (one) Application bid for 0 days Quantity: 50 {Gram} Refills: 0 Ordered: 14-May-2020 Hortencia Flores CNP, CNP, Mary E Start : 14-May-2020 End : 18-Apr-2020 Active Start: 04-11-2020 End: 04-18-2020 Diprolene 0.05 % External Oi ntment 1 (one) Application bid for 0 days Quantity: 50 {Gram} Refills: 0 Ordered: 18-Apr-2020 Blue Babb LPN Start : 11-Apr-2020 End : 18-Apr-2020 Inactive Start: 03-01-2016 End: 06-06-2017 bifidobacterium animalis 160 [id number] unt / lactobacillus acidophilus [id number] unt oral capsule (20 sources) Start: 06-12-2015 End: 10-06-2015 Start: 06-12-2015 End: 10-06-2015 take 1 capsule by mouth once daily PROBIOTIC (Oral Capsule) 1 (one) Capsule qd, 2 hours after atb for 0 days Quantity: 7 {Capsule} Refills: 0 Ordered: 06-Oct-2015 Lakisha Engel LPN Start : 12-Jun-2015 End : 06-Oct-2015 Discontinued Start: 06-12-2015 End: 10-06-2015 take 1 capsule by mouth once daily PROBIOTIC (Oral Capsule) 1 (one) Capsule qd, 2 hours after atb for 0 days Quantity: 7 {Capsule} Refills: 0 Ordered: 06-Oct-2015 Lakisha Engel LPN Start : 12-Jun-2015 End : 06-Oct-2015 Discontinued Calcium (20 sources) Phosphate Binder, Calcium Calcium Active calcium acetate 667 mg oral tablet (5 sources) Start: 12-03-2019 End: 12-25-2021 take 2 tablets by mouth once daily Calcium Acetate 667 mg tablet Discontinued 1334 mg PO DAILY December 03, 2019 12:00am December 25, 2021 8:52am Start: 12-03-2019 End: 12-25-2021 take 1334 mg by mouth once daily Calcium Acetate Discontinued 1334 MG PO DAILY December 02, 2019 11:00pm December 25, 2021 7:52am calcium citrate 1500 mg / cholecalciferol 200 unt oral tablet (1 source) Start: 03-01-2016 End: 02-14-2017 take 1 tablet by mouth twice daily Citracal + D 315-200 MG-UNIT Oral Tablet 1 (one) Tablet bid for 0 days Quantity: 60 {Tablet} Refills: 0 Ordered: 01-Mar-2016 Lakisha Engel LPN Start : 01-Mar-2016 End : 14-Feb-2017 Discontinued Comments: This order discontinued per [facility]. Comment on above: This order discontin ued per [facility]. calcium-vitamin D2-iron tablet (4 sources) Start: 09-30-2018 End: 12-03-2019 calcium-vitamin D2-iron tablet Discontinued MG PO September 29, 2018 11:00pm December 03, 2019 7:58am Start: 09-30-2018 End: 12-03-2019 calcium-vitamin D2-iron tabl et Discontinued MG PO September 30, 2018 12:00am December 03, 2019 8:58am Calcium-Vitamin D2-Iron tablet (1 source) Start: 09-30-2018 End: 12-03-2019 Calcium-Vitamin D2-Iron tablet Discontinued mg PO September 30, 2018 12:00am December 03, 2019 8:58am ciprofloxacin 500 mg oral tablet (20 sources) Quinolone Antimicrobial Start: 05-15-2015 End: 05-22-2015 clotrimazole 10 mg oral lozenge (20 sources) Azole Antifungal Start: 12-01-2017 End: 12-11-2017 codeine phosphate 2 mg/ml / guaiFENesin 20 mg/ml oral solution (20 sources) Opioid Agonist Start: 04-26-2016 End: 01-24-2017 Start: 04-26-2016 End: 01-24-2017 take 1-2 [tsp_us] by mouth once daily at bedtime as needed for cough Cheratussin AC 100-10 MG/5ML Oral Solution 1-2 Teaspoon qhs prn cough for 0 days Quantity: 6 {Ounce} Refills: 0 Ordered: 24-Jan-2017 Leatha Babb Start : 26-Apr-2016 End : 24-Jan-2017 Discontinued Deplin (algal oil) (5 sources) Start: 03-15-2016 End: 04-26-2016 Deplin 15 (1 source) Start: 03-15-2016 End: 04-26-2016 take 1 capsule by mouth once daily Deplin 15 15-90.314 MG Oral Capsule 1 (one) Capsule daily for 0 days Quantity: 30 {Capsule} Refills: 11 Ordered: 26-Apr-2016 Lakisha Engel LPN Start : 15-Mar-2016 End : 26-Apr-2016 Discontinued Deplin 15 15-90.314 MG Oral Capsule (20 sources) Start: 03-15-2016 End: 04-26-2016 take 1 capsule by mouth once daily Deplin 15 15-90.314 MG Oral Capsule 1 (one) Capsule daily for 0 days Quantity: 30 {Capsule} Refills: 11 Ordered: 26-Apr-2016 Lakisha Engel LPN Start : 15-Mar-2016 End : 26-Apr-2016 Discontinued Comments: Mail order. Start: 03-15-2016 End: 04-26-2016 take 1 capsule by mouth once daily Deplin 15 15-90.314 MG Oral Capsule 1 (one) Capsule daily for 0 days Quantity: 30 {Capsule} Refills: 11 Ordered: 26-Apr-2016 Lakisha Engel LPN Start : 15-Mar-2016 End : 26-Apr-2016 Discontinued Comment on above: Mail order. desloratadine 5 mg oral tablet (20 sources) Histamine-1 Receptor Antagonist Start: 08-24-2010 End: 08-24-2010 DESOGEN, 0.15-30MG-MCG (Oral Tablet) (1 source) Start: 04-08-2007 End: 10-08-2007 take 1 tablet by mouth once daily DESOGEN, 0.15-30MG-MCG (Oral Tablet) 1 Tablet QD for 0 days Quantity: 1 {Package(s)} Refills: 11 Ordered: 08-Apr-2007 Daphne Cheng Start : 08-Apr-2007 End : 08-Oct-2007 Inactive DESOGEN, 0.15-30MG-MCG (Oral Tablet) (20 sources) Progestin, Estrogen Start: 04-08-2007 End: 10-08-2007 Start: 04-08-2007 End: 10-08-2007 take 1 tablet by mouth once daily DESOGEN, 0.15-30MG-MCG (Oral Tablet) 1 Tablet QD for 0 days Quantity: 1 {Package(s)} Refills: 11 Ordered: 08-Apr-2007 Daphne Cheng Start : 08-Apr-2007 End : 08-Oct-2007 Inactive diphenhydrAMINE hydrochlorid e 25 mg oral capsule (20 sources) Histamine-1 Receptor Antagonist Start: 01-07-2008 End: 08-08-2008 doxycycline hyclate 100 mg o ral capsule (20 sources) Tetracycline-class Drug Start: 05-20-2016 End: 05-27-2016 DULoxetine 40 mg delayed rel ease oral capsule (20 sources) Serotonin and Norepinephrine Reuptake Inhibitor Start: 07-15-2022 Start: 04-12-2022 take 1 capsule by [facility] once daily DULoxetine 40 mg oral capsule,delayed release (enteric coated) 1 (one) Capsule daily for 0 days Quantity: 30 {Capsule} Refills: 3 Ordered: 12-Apr-2022 Katerin Cotton CNP Start : 12-Apr-2022 Active Start: 03-12-2022 take 1 capsule by [facility] once daily DULoxetine 40 mg oral capsule,delayed release (enteric coated) 1 (one) Capsule daily for 0 days Quantity: 30 {Capsule} Refills: 1 Ordered: 12-Mar-2022 Katerin Cotton CNP Start : 12-Mar-2022 Active Start: 12-11-2020 take 1 capsule by [facility] once daily Duloxetine 20 mg capsule,delayed release(DR/EC) Active 20 mg PO DAILY December 11, 2020 12:00am Start: 09-29-2020 take 1 capsule by [facility] once daily DULoxetine HCl 20 MG Oral Capsule Delayed Release Particles 1 (one) Capsule daily for 0 days Quantity: 30 {Capsule} Refills: 3 Ordered: 29-Sep-2020 Hortencia Flores CNP, CNP, Mary E Start : 29-Sep-2020 Active Start: 07-28-2020 take 1 capsule by [facility] once daily DULoxetine HCl 20 MG Oral Capsule Delayed Release Particles 1 (one) Capsule daily for 0 days Quantity: 30 {Capsule} Refills: 3 Ordered: 28-Jul-2020 Hortencia Flores CNP, CNP, Mary E Start : 28-Jul-2020 Active Start: 06-26-2020 take 1 capsule by [facility] once daily DULoxetine HCl 20 MG Oral Capsule Delayed Release Particles 1 (one) Capsule daily for 0 days Quantity: 30 {Capsule} Refills: 1 Ordered: 07-Jul-2020 Hortencia Flores CNP, CNP, Mary E Start : 07-Jul-2020 Active escitalopram 20 mg oral tabl et (20 sources) Serotonin Reuptake Inhibitor Start: 10-09-2020 End: 03-12-2022 Start: 10-09-2020 End: 06-26-2020 take 1 tablet by mouth once daily Lexapro 20 MG Oral Tablet 1 (one) Tablet qd for 90 days Quantity: 90 {Tablet} Refills: 3 Ordered: 09-Oct-2020 Hortencia Flores Mary Start : 09-Oct-2020 End : 26-Jun-2020 Active Start: 10-09-2020 End: 06-26-2020 take 1 tablet by mouth once daily Lexapro 20 MG Oral Tablet 1 (one) Tablet qd for 90 days Quantity: 90 {Tablet} Refills: 3 Ordered: 09-Oct-2020 Hortencia Flores Mary Start : 09-Oct-2020 End : 26-Jun-2020 Active Start: 10-09-2020 End: 06-26-2020 take 1 tablet by mouth once daily Lexapro 20 MG Oral Tablet 1 (one) Tablet qd for 90 days Quantity: 90 {Tablet} Refills: 3 Ordered: 09-Oct-2020 Hortencia Flores Mary Start : 09-Oct-2020 End : 26-Jun-2020 Active Start: 10-09-2020 End: 06-26-2020 take 1 tablet by mouth once daily Lexapro 20 MG Oral Tablet 1 (one) Tablet qd for 90 days Quantity: 90 {Tablet} Refills: 3 Ordered: 09-Oct-2020 Mariedeemariya SALAZAR Hortencia Waterman Mark SALAZAR Hortencia Waterman Start : 09-Oct-2020 End : 26-Jun-2020 Active Start: 10-09-2020 End: 06-26-2020 take 1 tablet by mouth once daily Lexapro 20 MG Oral Tablet 1 (one) Tablet qd for 90 days Quantity: 90 {Tablet} Refills: 3 Ordered: 09-Oct-2020 Mark MARIE Hortencia Waterman Mariedeemariya SALAZAR Hortencia Waterman Start : 09-Oct-2020 End : 26-Jun-2020 Active Start: 08-18-2015 End: 12-11-2020 take 1 tablet by mouth at bedtime Escitalopram Oxalate 20 mg tablet Discontinued 20 mg PO AT BEDTIME December 03, 2019 8:59am December 11, 2020 8:32am estradiol 0.1 mg/ml vaginal cream (7 sources) Estrogen Start: 02-03-2023 End: 12-19-2023 Estradiol 0.01 % (0.1 mg/gram) cream Discontinued 0 VAGINAL .COMPLEX February 03, 2023 12:00am December 19, 2023 9:54am small amount vaginally every other day X 4 weeks then twice a week Start: 02-03-2023 Estradiol Acti ve 0 VAGINAL .COMPLEX February 02, 2023 11:00pm small amount vaginally every other day X 4 weeks then twice a week Start: 12-12-2020 End: 12-18-2021 Estradiol 0.01 % (0.1 mg/gra m) cream Discontinued 0 VAGINAL .COMPLEX 42.5 December 12, 2020 12:00am December 18, 2021 9:33am small amount as directed vaginal every other day X 4 weeks then twice a week; Start: 12-12-2020 End: 12-18-2021 Estradiol Discontinued 0 VAG INAL .COMPLEX 42.5 December 11, 2020 11:00pm December 18, 2021 8:33am small amount as directed vaginal every other day X 4 weeks then twice a week; famotidine 20 mg oral tablet (20 sources) Histamine-2 Receptor Antagonist Start: 01-07-2008 End: 08-08-2008 lisinopril 10 mg oral tablet (20 sources) Angiotensin Converting Enzyme Inhibitor Start: 04-18-2020 Comment on above: Per cardio Clare loratadine 10 mg oral tablet (20 sources) Start: 01-07-2008 End: 08-08-2008 Start: 01-07-2008 End: 08-08-2008 CLARITIN, 10MG (Oral Tablet) for 0 days Refills: 0 Ordered: 07-Jan-2008 Nila Masters Start : 07-Jan-2008 End : 08-Aug-2008 Discontinued magnesium glycinate 100 mg oral tablet (5 sources) Start: 09-30-2018 End: 12-11-2020 take 1 tablet by mouth once daily Magnesium Glycinate 100 mg tablet Discontinued 100 mg PO DAILY September 30, 2018 12:00am December 11, 2020 8:33am meclizine hydrochloride 25 mg oral tablet (20 sources) Antiemetic Start: 01-01-2023 Start: 05-20-2012 End: 10-06-2015 Comment on above: This order discontin ued per [facility]. methylPREDNISolone 4 mg oral tablet (20 sources) Corticosteroid Start: 2022 End: 2022 take 1 tablet by mouth once Methylprednisolone (Medrol (Donny)) 4 mg tablets,dose pack Discontinued 4 mg PO per package directions 21 November 15, 2022 12:00am November 20, 2022 12:00am November 21, 2022 12:03am Start: 09-26-2017 End: 08-05-2018 Start: 01-01-2008 End: 01-07-2008 Start: 01-01-2008 End: 01-07-2008 take 1 tablet by mouth at mealtime MEDROL (DONNY), 4MG (Oral Tablet) Tablet for 0 days Refills: 0 Ordered: 01-Jan-2008 Nila Masters Start : 01-Jan-2008 End : 07-Jan-2008 Discontinued Comments: as directed with food Comment on above: with food as directed with rosmery d mometasone furoate 0.05 mg/a ctuat metered dose nasal spray (20 sources) Corticosteroid Start: 12-16-2008 End: 01-31-2010 Start: 12-16-2008 End: 01-31-2010 NASONEX, 50MCG/ACT (Nasal Gallegos spension) 2 (two) Suspension qd for 0 days Refills: 0 Ordered: 31-Jan-2010 Simran Alcantara Start : 16-Dec-2008 End : 31-Jan-2010 Inactive predniSONE 20 mg oral tablet (20 sources) Start: 11-24-2015 End: 03-01-2016 bifidobacterium animalis [id number] unt / lactobacillus acidophilus [id number] unt oral capsule (1 source) Start: 06-12-2015 End: 10-06-2015 take 1 capsule by mouth once daily PROBIOTIC (Oral Capsule) 1 (one) Capsule qd, 2 hours after atb for 0 days Quantity: 7 {Capsule} Refills: 0 Ordered: 06-Oct-2015 Lakisha Engel LPN Start : 12-Jun-2015 End : 06-Oct-2015 Discontinued PROBIOTIC (Oral Capsule) (11 sources) Start: 06-12-2015 End: 10-06-2015 take 1 capsule by mouth once daily PROBIOTIC (Oral Capsule) 1 (one) Capsule qd, 2 hours after atb for 0 days Quantity: 7 {Capsule} Refills: 0 Ordered: 06-Oct-2015 Lakisha Engel LPN Start : 12-Jun-2015 End : 06-Oct-2015 Discontinued simethicone 125 mg oral capsule (20 sources) Start: 08-21-2020 End: 03-12-2022 spironolactone 100 mg oral tablet (20 sources) Aldosterone Antagonist Start: 05-20-2018 End: 04-11-2020 Start: 05-20-2018 End: 08-25-2017 take 1 tablet by mouth once daily Spironolactone 100 MG Oral Tablet 1 (one) Tablet daily for 90 days Quantity: 90 {Tablet} Refills: 3 Ordered: 20-May-2018 Hortencia Flores CNP MARIEHortencia Start : 20-May-2018 End : 25-Aug-2017 Active Start: 05-20-2018 End: 08-25-2017 take 1 tablet by mouth once daily Spironolactone 100 MG Oral Tablet 1 (one) Tablet daily for 90 days Quantity: 90 {Tablet} Refills: 3 Ordered: 20-May-2018 Mark MARIEHortencia MARIE Hortencia Waterman Start : 20-May-2018 End : 25-Aug-2017 Active Start: 05-20-2018 End: 08-25-2017 take 1 tablet by mouth once daily Spironolactone 100 MG Oral Tablet 1 (one) Tablet daily for 90 days Quantity: 90 {Tablet} Refills: 3 Ordered: 20-May-2018 Mark MARIE Hortencia Flores MARIE Hortencia Waterman Start : 20-May-2018 End : 25-Aug-2017 Active Start: 05-20-2018 End: 08-25-2017 take 1 tablet by mouth once daily Spironolactone 100 MG Oral Tablet 1 (one) Tablet daily for 90 days Quantity: 90 {Tablet} Refills: 3 Ordered: 20-May-2018 Mark MARIE Hortencia Flores MARIE Hortencia Waterman Start : 20-May-2018 End : 25-Aug-2017 Active Start: 05-20-2018 End: 08-25-2017 take 1 tablet by mouth once daily Spironolactone 100 MG Oral Tablet 1 (one) Tablet daily for 90 days Quantity: 90 {Tablet} Refills: 3 Ordered: 20-May-2018 Mark MARIEHortencia MARIE Hortencia Waterman Start : 20-May-2018 End : 25-Aug-2017 Active Start: 05-20-2018 End: 08-25-2017 take 1 tablet by mouth once daily Spironolactone 100 MG Oral Tablet 1 (one) Tablet daily for 90 days Quantity: 90 {Tablet} Refills: 3 Ordered: 20-May-2018 Mark MARIE Hortencia Flores BIOLOGICS SPECIALISTHortencia Start : 20-May-2018 End : 25-Aug-2017 Active Start: 05-20-2018 End: 08-25-2017 take 1 tablet by mouth once daily Spironolactone 100 MG Oral Tablet 1 (one) Tablet daily for 90 days Quantity: 90 {Tablet} Refills: 3 Ordered: 20-May-2018 Hortencia Flores CNP, CNP, Mary E Start : 20-May-2018 End : 25-Aug-2017 Active Start: 05-20-2018 End: 08-25-2017 take 1 tablet by mouth once daily Spironolactone 100 MG Oral Tablet 1 (one) Tablet daily for 90 days Quantity: 90 {Tablet} Refills: 3 Ordered: 20-May-2018 Mark BIOLOGICS SPECIALISTHortencia MARIEHortencia Start : 20-May-2018 End : 25-Aug-2017 Active Start: 05-20-2018 End: 08-25-2017 take 1 tablet by mouth once daily Spironolactone 100 MG Oral Tablet 1 (one) Tablet daily for 90 days Quantity: 90 {Tablet} Refills: 3 Ordered: 20-May-2018 Hortencia Flores CNP MARIEHortencia Start : 20-May-2018 End : 25-Aug-2017 Active Start: 05-20-2018 End: 08-25-2017 take 1 tablet by mouth once daily Spironolactone 100 MG Oral Tablet 1 (one) Tablet daily for 90 days Quantity: 90 {Tablet} Refills: 3 Ordered: 20-May-2018 Mark MARIEHortencia MARIEHortencia Start : 20-May-2018 End : 25-Aug-2017 Active Start: 05-20-2018 End: 08-25-2017 take 1 tablet by mouth once daily Spironolactone 100 MG Oral Tablet 1 (one) Tablet daily for 90 days Quantity: 90 {Tablet} Refills: 3 Ordered: 20-May-2018 Hortencia Flores CNP, CNP, Mary E Start : 20-May-2018 End : 25-Aug-2017 Active Start: 05-20-2018 End: 08-25-2017 take 1 tablet by mouth once daily Spironolactone 100 MG Oral Tablet 1 (one) Tablet daily for 90 days Quantity: 90 {Tablet} Refills: 3 Ordered: 20-May-2018 Hortencia Flores CNP, CNP, Mary E Start : 20-May-2018 End : 25-Aug-2017 Active Start: 05-20-2018 End: 08-25-2017 take 1 tablet by mouth once daily Spironolactone 100 MG Oral Tablet 1 (one) Tablet daily for 90 days Quantity: 90 {Tablet} Refills: 3 Ordered: 20-May-2018 Hortencia Flores CNP, CNP, Mary E Start : 20-May-2018 End : 25-Aug-2017 Active Start: 05-20-2018 End: 08-25-2017 take 1 tablet by mouth once daily Spironolactone 100 MG Oral Tablet 1 (one) Tablet daily for 90 days Quantity: 90 {Tablet} Refills: 3 Ordered: 20-May-2018 Hortencia Flores CNP, CNP, Mary E Start : 20-May-2018 End : 25-Aug-2017 Active Start: 05-20-2018 End: 08-25-2017 take 1 tablet by mouth once daily Spironolactone 100 MG Oral Tablet 1 (one) Tablet daily for 90 days Quantity: 90 {Tablet} Refills: 3 Ordered: 20-May-2018 Hortencia Flores CNP, CNP, Mary E Start : 20-May-2018 End : 25-Aug-2017 Active Start: 08-18-2015 End: 09-30-2018 take 1 tablet by mouth once daily Spironolactone 100 MG tablet Discontinued 100 mg PO DAILY August 18, 2015 12:00am September 30, 2018 9:30am sulfamethoxazole 800 mg / trimethoprim 160 mg oral tablet (20 sources) Dihydrofolate Reductase Inhibitor Antibacterial, Sulfonamide Antimicrobial Start: 06-12-2015 End: 10-06-2015 Start: 06-12-2015 End: 10-06-2015 take 1 tablet by mouth twice daily BACTRIM DS, 800-160MG (Oral Tablet) 1 (one) Tablet bid for 0 days Quantity: 14 {Tablet} Refills: 0 Ordered: 06-Oct-2015 Lakisha Engel LPN Start : 12-Jun-2015 End : 06-Oct-2015 Discontinued triamcinolone acetonide 0.05 5 mg/actuat metered dose nasal spray (20 sources) Corticosteroid Start: 12-01-2017 Start: 12-01-2017 take 2 puff(s) by in halation once daily Nasacort Allergy 24HR 55 MCG/ACT Nasal Aerosol 2 (two) Puff Puff daily for 0 days Quantity: 1 {Inhaler} Refills: 0 Ordered: 01-Dec-2017 Skinny MARINBlue Angel Start : 01-Dec-2017 Active Start: 03-20-2011 End: 10-06-2015 Start: 03-20-2011 End: 10-06-2015 NASACORT AQ, 55MCG/ACT (Nasa l Aerosol Solution) 2 (two) Aerosol Soln qd for 0 days Quantity: 1 {Aerosol_Soln} Refills: 0 Ordered: 13-Aug-2013 Lakisha Engel LPN Start : 20-Mar-2011 End : 06-Oct-2015 Discontinued Comments: This order discontinued per [facility]. Start: 03-20-2011 End: 10-06-2015 NASACORT AQ, 55MCG/ACT (Nasa l Aerosol Solution) 2 (two) Aerosol Soln qd for 0 days Quantity: 1 {Aerosol_Soln} Refills: 0 Ordered: 13-Aug-2013 Toro GAYTAN Lakisha Start : 20-Mar-2011 End : 06-Oct-2015 Discontinued Comments: This order discontinued per [facility]. Comment on above: This order discontin ued per [facility]. Triamcinolone Acetonide 55 mcg/actuation aerosol (1 source) Start: 09-28-2018 End: 09-30-2018 Triamcinolone Acetonide 55 mcg/actuation aerosol Discontinued ug INTRANASAL September 28, 2018 12:00am September 30, 2018 9:10am triamcinolone acetonide 55 mcg/actuation nasal spray,aerosol (4 sources) Start: 09-28-2018 End: 09-30-2018 triamcinolone acetonide 55 mcg/actuation nasal spray,aerosol Discontinued MCG INTRANASAL September 27, 2018 11:00pm September 30, 2018 8:10am Start: 09-28-2018 End: 09-30-2018 triamcinolone acetonide 55 m cg/actuation nasal spray,aerosol Discontinued MCG INTRANASAL September 28, 2018 12:00am September 30, 2018 9:10am valACYclovir 1000 mg oral tablet (3 sources) Herpesvirus Nucleoside Analog DNA Polymerase Inhibitor, Herpes Simplex Virus Nucleoside Analog DNA Polymerase Inhibitor, Herpes Zoster Virus Nucleoside Analog DNA Polymerase Inhibitor Start: 11-15-2022 End: 11-22-2022 Valacyclovir 1 gram tablet Discontinued 1000 mg PO THREE TIMES A DAY 01 11November 15, 2022 12:00am November 21, 2022 12:00am November 22, 2022 12:04am Start: 11-15-2022 End: 11-22-2022 take 1000 mg by mouth three times daily Valacyclovir Discontinued 1000 MG PO THREE TIMES A DAY 01 11November 14, 2022 11:00pm November 21, 2022 11:04pm Vitamin D (Cholecalciferol) 1000 UNIT Oral Tablet (9 sources) take 2 tablets by mouth once Vitamin D (Cholecalciferol) 1000 UNIT Oral Tablet 2tab (1000 UNIT) Active Vitamin D3 (5 sources) zolpidem tartrate 6.25 mg extended release oral tablet (20 sources) gamma-Aminobuty eulalia Acid-ergic Agonist Start: 011 End: 011 Problems Active Problems Problem Classification Problem Date Documented Da te Episodic/Chronic Abdominal pain (20 sources) Right lower quadrant pain; Translations: [Abdominal pain, acute, right lower quadrant (Renamed from Acute abdominal pain in right lower quadrant)] Resolved: 6 06-06-2017 Episodic Comment on above: rt lower quad starte d in back was taking advil or motrin later came to rt lower quad. Allergic reactions (20 sources) Atopic dermatitis; Translations: [Atopic dermatitis, unspecified type] 04-18-2020 Chronic Comment on above: resolved with diprol kelsi bilateral ears related to ear buds for work Diprolene worked excellent vs subacute eczema, bilateral ears related to ear buds for work and latex allergy with ? secondary bacterial infection Allergic reactions (20 sources) Allergic contact dermatitis due to adhesive; Translations: [Eczema] Resolved: 9 12-01-2017 Episodic Anxiety disorders (20 sources) Anxiety; Translations: [Anxiety] 12-01-2017 Chronic Comment on above: chronic stable contr olled on amytritiline-continue present regimen, recent oopherectomy and increase crying may be hormone relateduses xanax prn chronic stable contr olled on amytritiline-continue present regimenuses xanax prn chronic stable contr olled on amytritiline and lexapro-continue present regimenuses xanax prn Cardiac dysrhythmias (8 sources) Sinus tachycardia; Translations: [Tachycardia, unspecified] Episodic Chronic obstructive pulmonary disease and bronchiectasis (20 sources) Bronchitis; Translations: [Bronchitis] 12-01-2017 Episodic Comment on above: on doxy Conditions associated with dizziness or vertigo (20 sources) Vertigo; Translations: [Vertigo] 12-01-2017 Episodic Comment on above: offered pt for william maneuver- she is going to hold fo r now discussed pathophysiology Disorders of lipid metabolism (20 sources) Hyperlipidemia; Translations: [Hyperlipidemia] Resolved: 9 12-01-2017 Chronic Esophageal disorders (20 sources) Gastroesophageal reflux disease; Translations: [GERD (gastroesophageal reflux disease)] Resolved: 9 12-01-2017 Chronic Comment on above: chronic stable-gila nue present regimen Essential hypertension (20 sources) Benign essential hypertension; Translations: [Hypertensive disorder] 01-24-2017 Chronic Comment on above: chronic stable-gila nue present regimen variable controlled on atenolol and spriolactone,EKG sinus BP at home 136/98 100/69 variable controlled on atenolol and spriolactone, variable controlled on atenolol and spriolactone, anxiety Fluid and electrolyte disorders (2 sources) Hyponatremia; Translations: [Hyponatremia] 02-07-2023 Episodic Genitourinary symptoms and ill-defined conditions (20 sources) Urinary symptoms ; Translations: [UTI symptoms] Resolved: 6 06-06-2017 Episodic Headache, including migraine (20 sources) Migraine with aura; Translations: [Migraine with aura and without status migrainosus, not intractable] Resolved: 9 12-01-2017 Chronic Headache; including migraine (20 sources) Headache; Translations: [Headache] 03-12-2022 Episodic Comment on above: for few weeks, if co ntinues she will call. trying antihistamine Immunizations and screening for infectious disease (20 sources) Need for prophylactic vaccination and inoculation against influenza; Translations: [Needs influenza immunization] Resolved: 5 07-07-2020 Episodic Malaise and fatigue (20 sources) Fatigue; Translations: [Fatigue] 01-24-2017 Episodic Comment on above: with joint pain, dry skin and hair Menopausal disorders (20 sources) Postmenopausal bleeding; Translations: [Postmenopausal bleeding] Resolved: 9 12-01-2017 Chronic Comment on above: restart estradiol cr [facility] Mood disorders (20 sources) Depression; Translations: [Depressive disorder] 12-01-2017 Chronic Comment on above: encourage walking, w as taking lexapro at night, ok to try during day encourage walking, w as taking lexapro at night encourage walking, w as taking lexapro at night will change to cymbalta lots stress at work, increase cymbalta to 40mg dailyencourage walking, was taking lexapro -previously changed to cymbalta Mycoses (20 sources) Candidiasis; Translations: [Candidiasis] Resolved: 9 12-01-2017 Episodic Nonmalignant breast conditions (20 sources) Breast lump; Translations: [Other signs and symptoms in breast] Resolved: 06-06-2017 Episodic Nonspecific chest pain (20 sources) Chest pain; Translations: [Chest pain] Resolved: 9 06-06-2017 Episodic Nutritional deficiencies (20 sources) Vitamin D deficiency; Translations: [Vitamin D deficiency, unspecified] 12-01-2017 Chronic Other bone disease and musculoskeletal deformities (20 sources) Osteopenia; Translations: [Osteopenia] 12-01-2017 Episodic Comment on above: on D Other circulatory disease (20 sources) Raynaud's syndrome; Translations: [RAYNAUD'S SYNDROME] 12-01-2017 Chronic Other circulatory disease (20 sources) Elevated blood-pressure reading without diagnosis of hypertension; Translations: [Elevated blood pressure (not hypertension)] Resolved: 06-06-2017 Episodic Other connective tissue disease (20 sources) Tenosynovitis of left radial styloid; Translations: [De Quervain's tenosynovitis, left] 06-18-2022 Episodic Comment on above: if no improvement wi th conservative management, then send for injection Other diseases of bladder and urethra (20 sources) Diverticulum of bladder; Translations: [Bladder diverticulum] 09-01-2020 Chronic Comment on above: ? vs other cystic st ructure seen on pelvic ultrasound in work up for abd pain sending to urologist Other female genital disorders (5 sources) Stenosis of cervix; Translations: [Stricture and stenosis of cervix uteri] 09-28-2018 Episodic Other gastrointestinal disorders (20 sources) Irritable bowel syndrome; Translations: [Irritable bowel syndrome] Resolved: 9 12-01-2017 Chronic Comment on above: chronic stable-gila nue present regimen Other gastrointestinal disorders (20 sources) Bloating symptom; Translations: [Bloating symptom] 08-21-2020 Episodic Comment on above: will monitor Other gastrointestinal disorders (4 sources) Abdominal bloating; Translations: [Bloating symptom] 01-01-2023 Episodic Other inflammatory condition of skin (20 sources) Itching of skin; Translations: [Itchy skin] Resolved: 8 06-06-2017 Episodic Other inflammatory condition of skin (10 sources) Pruritus, unspecified; Translations: [Itchy skin] Resolved: 8 06-06-2017 Episodic Other liver diseases (20 sources) Steatosis of liver; Translations: [Fatty liver] 09-01-2020 Chronic Other lower respiratory disease (20 sources) Cough; Translations: [Cough] 12-01-2017 Episodic Other lower respiratory disease (20 sources) Snoring; Translations: [Snores] Resolved: 9 12-01-2017 Episodic Other lower respiratory disease (10 sources) Dyspnea on exertion; Translations: [Other forms of dyspnea] 12-11-2020 Episodic Other lower respiratory disease (1 source) Other forms of dyspnea; Translations: [Other respiratory abnormalities] 03-17-2023 Episodic Other non-traumatic joint disorders (20 sources) Hip pain; Translations: [Pain in unspecified hip] Resolved: 9 06-06-2017 Episodic Comment on above: comes and goes- righ t now doing well Other non-traumatic joint disorders (20 sources) Pain in wrist; Translations: [Wrist pain, acute, left] 06-18-2022 Episodic Other non-traumatic joint disorders (11 sources) Pain of right wrist; Translations: [Wrist pain, right] 06-18-2022 Episodic Other nutritional; endocrine; and metabolic disorders (20 sources) Hypercalcemia; Translations: [Hypercalcemia] 12-01-2017 Chronic Comment on above: has stopped Vit D an d calcium twice a day dose and daily MVit, calcium within range has stopped calcium twice a day calcium dose still on daily MVit, calcium within range once calcium stopped Other nutritional; endocrine; and metabolic disorders (20 sources) Hypocalcemia; Translations: [Hypocalcemia] 12-01-2017 Chronic Other nutritional; endocrine; and metabolic disorders (20 sources) Body mass index 30+ - obesity; Translations: [BMI 30.0-30.9,adult] Resolved: 3 12-01-2017 Chronic Other nutritional; endocrine; and metabolic disorders (20 sources) Body mass index 25-29 - overweight; Translations: [BMI 28.0-28.9,adult] Resolved: 9 12-01-2017 Chronic Other nutritional; endocrine; and metabolic disorders (20 sources) Other disorders of phosphorus metabolism; 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] Resolved: 9 12-01-2017 Chronic Other nutritional; endocrine; and metabolic disorders (5 sources) Obesity; Translations: [Obesity, unspecified] 12-05-2021 Chronic Other nutritional; endocrine; and metabolic disorders (20 sources) Body mass index 25-29 - overweight; Translations: [BMI 28.0-28.9,adult] Resolved: 9 07-07-2020 Episodic Other nutritional; endocrine; and metabolic disorders (20 sources) Overweight in adulthood with body mass index of 25 or more but less than 30; Translations: [BMI 28.0-28.9,adult] Resolved: 9 09-01-2020 Episodic Other skin disorders (20 sources) Acne; Translations: [Acne] Resolved: 9 12-01-2017 Episodic Other skin disorders (20 sources) Eruption; Translations: [Skin rash] 12-01-2017 Episodic Other upper respiratory infections (20 sources) Chronic sinusitis; Translations: [Chronic sinusitis] Resolved: 9 12-01-2017 Chronic Other upper respiratory infections (20 sources) Acute sinusitis; Translations: [Upper respiratory infection] Resolved: 9 09-12-2008 Episodic Comment on above: getting better if do esnt resoolve will call for antiobitiic Otitis media and related conditions (20 sources) Dysfunction of eustachian tube; Translations: [Eustachian tube dysfunction] 12-01-2017 Episodic Ovarian cyst (20 sources) Cyst of ovary; Translations: [Cyst of left ovary] Resolved: 9 12-01-2017 Episodic Residual codes; unclassified (20 sources) Needs influenza immunization; Translations: [Need for prophylactic vaccination and inoculation against influenza] Resolved: 5 01-17-2015 Episodic Residual codes; unclassified (20 sources) Insomnia; Translations: [Insomnia, unspecified] Resolved: 9 08-06-2018 Episodic Comment on above: controlled on amytri ptiline Residual codes; unclassified (20 sources) H/O: surgery; Translations: [Status post unilateral salpingo-oophorectomy] Resolved: 9 08-05-2018 Episodic Comment on above: removed, left ovary and fallopian tube, No period in 5years Residual codes; unclassified (20 sources) Postmenopausal state; Translations: [Postmenopausal] 08-05-2018 Episodic Residual codes; unclassified (20 sources) Insomnia, unspecified Episodic Residual codes; unclassified (20 sources) Unspecified donor, other blood; Translations: [Blood donor] 04-18-2020 Episodic Residual codes; unclassified (20 sources) Electronic cigarette user; Translations: [Electronic cigarette use] 04-18-2020 Episodic Residual codes; unclassified (20 sources) Non-smoker; Translations: [Nonsmoker] 07-07-2020 Episodic Residual codes; unclassified (2 sources) Family history of breast cancer; Translations: [Family history of malignant neoplasm of breast] 02-03-2023 Episodic Comment on above: maternal grandmother , aunt, cousin Residual codes; unclassified (1 source) Family history of malignant neoplasm of breast; Translations: [Family history of malignant neoplasm of breast] 02-03-2023 Episodic Skin and subcutaneous tissue infections (20 sources) Cellulitis; Translations: [Cellulitis] Resolved: 9 06-06-2017 Episodic Spondylosis; intervertebral disc disorders; other back problems (20 sources) Sciatica; Translations: [Sciatica] Resolved: 9 12-01-2017 Episodic Comment on above: unrelieved by her ow n exercises and worsen with walking will treat and work up Substance-related disorders (20 sources) Smoker; Translations: [Smoker] 12-01-2017 Chronic Comment on above: uses e-cigarrette wh ich she believes contains nicotine uses e-cigarrette ch pierce chest xray uses e-cigarrette ch ecked chest xray Unclassified (20 sources) Finding related to substance use; Translations: [Insomnia] Resolved: 8 12-01-2017 Episodic Comment on above: controlled on amytri ptiline removed, left ovary and fallopian tube, No period in 5years Unclassified (20 sources) Snores Unclassified (20 sources) Unclassified (20 sources) PHARYNGITIS, ACUTE (462.) Unclassified (20 sources) VITAMIN D DEFICIENCY, NOS (268.9) Unclassified (20 sources) Status post unilateral salpingo-oophorectomy Unclassified (20 sources) screening 12-01-2017 Unclassified (20 sources) BMI 29.0-29.9,adult Unclassified (20 sources) Abnormal mammogram (793.80) Unclassified (20 sources) Postmenopausal Unclassified (20 sources) Skin rash Unclassified (20 sources) Body mass index (bmi) 29.0-29.9, adult Unclassified (20 sources) BMI 30.0-30.9,adult Unclassified (20 sources) Eustachian tube dysfunction (381.81) Unclassified (20 sources) screen Resolved: 1 06-06-2017 Unclassified (20 sources) Encounter for screening mammogram for breast cancer (Renamed from Encounter for screening mammogram for malignant neoplasm of breast) Unclassified (20 sources) Pelvis/Thigh/Hip Pain (719.45) Unclassified (20 sources) Atopic dermatitis, unspecified type Unclassified (20 sources) Blood donor Unclassified (20 sources) Headache,Migraine (346.00) Urinary tract infections (20 sources) Urinary tract infectious disease; Translations: [Urinary tract infection, site not specified (Renamed from Urinary tract infection)] Resolved: 6 06-06-2017 Episodic Viral infection (20 sources) Viral disease; Translations: [Viral infection, unspecified] Resolved: 1 02-27-2015 Episodic Past or Other Problems Problem Classification Problem Date Documented Date Episodic/Chronic Administrative/socia l admission (20 sources) Medical examinations/reports status; Translations: [Well woman exam] Resolved: 07-27-2014 06-06-2017 Episodic Headache, including migraine (20 sources) Headache, including migraine Inflammatory diseases of female pelvic organs (20 sources) Unspecified inflammatory disease of uterus; Translations: [Unspecified inflammatory disease of uterus] Resolved: 08-05-2018 12-01-2017 Episodic Mood disorders (20 sources) Mood disorders Nonmalignant breast conditions (20 sources) Fibrocystic disease of breast; Translations: [Fibrocystic breast disease] Resolved: 08-05-2018 12-01-2017 Chronic Nonmalignant breast conditions (18 sources) Breast signs and symptoms; Translations: [Other signs and symptoms in breast] Resolved: 08-24-2010 06-06-2017 Ovarian cyst (20 sources) Unspecified ovarian cyst, left side; Translations: [Cyst of left ovary] Resolved: 08-05-2018 09-26-2017 Residual codes; unclassified (20 sources) Increased body mass index; Translations: [Body mass index (bmi) 29.0-29.9, adult] Resolved: 08-05-2018 08-06-2018 Episodic Residual codes; unclassified (1 source) Asymptomatic menopausal state; Translations: [Asymptomatic menopausal state] Onset: 10-02-2023 Episodic Residual codes; unclassified (9 sources) Electronic cigarette user; Translations: [Electronic cigarette use] 08-05-2018 Unclassified (20 sources) Mammography abnormal; Translations: [Breast neoplasm screening status] Onset: 05-24-2024 Resolved: 08-13-2013 06-06-2017 Episodic Unclassified (20 sources) UTI symptoms Unclassified (20 sources) BMI 28.0-28.9,adult Unclassified (20 sources) Nonsmoker; Translations: [Non-smoker] 01-24-2017 Unclassified (20 sources) Left fallopian tube removal 12-01-2017 Unclassified (20 sources) 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) Unclassified (20 sources) Well Woman Exam (V72.31) (Pap,Mammo,Routine Female) (Renamed from Well Woman V72.31 (p,m)) Unclassified (20 sources) menopausal 12-01-2017 Unclassified (20 sources) Itchy skin Unclassified (20 sources) Ovarian Cyst, Unspecified (620.2) Unclassified (20 sources) postmenopausal without estrogen 12-01-2017 Unclassified (20 sources) FIBROID UTERUS Resolved: 08-05-2018 12-01-2017 Unclassified (20 sources) Unspecified Diagnosis Resolved: 07-27-2014 07-27-2014 Unclassified (20 sources) Preop examination; Translations: [Preprocedural examination done] Resolved: 06-06-2017 06-06-2017 Comment on above: DR Griggs 11 fo r Lap L Oophorectomy for L ovarian cyst Unclassified (20 sources) enlarged uterus on exam 12-01-2017 Unclassified (20 sources) Electronic cigarette use Unclassified (20 sources) Encounter for screening for malignant neoplasm of colon (Renamed from Special screening for malignant neoplasms, colon); Translations: [Screening status] 12-01-2017 Unclassified (20 sources) Eustachian tube dysfunction Unclassified (20 sources) Cyst of left ovary Unclassified (20 sources) bee sting with secondary cellulitis Resolved: 09-12-2008 06-06-2017 Unclassified (20 sources) atypical skin lesion right thigh- rule outBCC- set up bx Resolved: 09-12-2008 06-06-2017 Unclassified (20 sources) Pregnancies (); Translations: [Pregnancies ()] 12-01-2017 Comment on above: 0 Unclassified (20 sources) Elevated Blood Pressure(796.2) Unclassified (20 sources) LAPAROSCOPY, NOS Resolved: 08-05-2018 12-01-2017 Unclassified (20 sources) Abdominal pain, acute, right lower quadrant (Renamed from Acute abdominal pain in right lower quadrant) Unclassified (20 sources) Screening status; Translations: [Encounter for screening for malignant neoplasm of colon (Renamed from Special screening for malignant neoplasms, colon)] 08-05-2018 Unclassified (20 sources) Non-smoker; Translations: [Nonsmoker] 01-24-2017 Unclassified (20 sources) Patient encounter status; Translations: [Pre-operative exam (Renamed from Encounter for pre-operative examination)] Resolved: 06-06-2017 08-05-2018 Comment on above: DR Griggs 11 fo r Lap L Oophorectomy for L ovarian cyst Unclassified (20 sources) Preprocedural examination done; Translations: [Pre-operative exam (Renamed from Encounter for pre-operative examination)] Resolved: 06-06-2017 08-05-2018 Comment on above: DR Griggs 11 fo r Lap L Oophorectomy for L ovarian cyst Unclassified (20 sources) Pregnancies (); Translations: [Pregnancies ()] 07-07-2020 Comment on above: 0 Unclassified (20 sources) Abdominal pain, lower Unclassified (13 sources) Bloating symptom Unclassified (10 sources) Bladder diverticulum Urinary tract infections (20 sources) Urinary tract infections Results Test Name Value Interpretation Reference Range Facility Cardiology Visit Reporton Cardiology Visit Report [facility] [address] [place], [place] [address] OFFICE VISIT Date of Service: 09/17/24 MR#: [id number] Acct: [id number] Name: YASSINE RUIZ Rep #: [id number] : 1960 Provider: ROSEANN Matt Age/Sex: 64/F Location: [facility] Status: Signed HPI HPI History of Present Illness Details: Yassine Ruiz is a 64 -year-old lady with a history of hypertension and an abnormal EKG. She was evaluated with the above with an echocardiogram which was normal. From a cardiac standpoint, patient is doing well. She does not have any chest discomfort/heaviness/tigh tness. Her exercise tolerance is stable for her age. She does not have any worsening symptoms of shortness of breath. She does not have any orthopnea. She denies PND. She does not have any symptoms of congestive heart failure. She does not have any palpitations that she is aware of. She notes that at times she feels anxious. She notes that her HR is usually in the 90s at home at rest. She does not have any lightheadedness or dizziness. She does not have any near-syncope or syncope. She does not have any lower extremity edema. She does not have any symptoms of claudication. Intake Vital Signs 06/16/24 07:53 09/17/24 06:59 Height 5 ft 8 in 5 ft 8 in Weight: 215 lb BMI 32.6 BP 126/88 H Blood Pressure Location Lt brachial Position Sitting Respiration 18 Pulse 95 Pulse Source Monitor Pulse Oximetry (%) 100 Intake Visit Reasons: 9 M Occupational Therapy Co Director Required: No Is patient in pain?: No Allergies adhesive tape Allergy (Verified 09/17/24 08:01) Swelling latex Allergy (Verified 09/17/24 08:01) Swelling Medications ???Medication ???Instructions ???Recorded ???Confirmed ???Type amitriptyline 50 mg tablet 50 mg PO QHS 08/18/15 09/17/24 His tory cholecalciferol (vitamin D3) 25 2,000 unit PO DAILY 07/06/1609/17 History mcg (1,000 unit) chewable tablet multivitamin 1 ea PO DAILY 08/04/18 09/17/24 Hi story alprazolam 0.5 mg tablet 0.5 mg PO DAILY PRN PRN Anxiety 8 12/11/20 09/17/24 History days #30 tabs duloxetine 20 mg capsule,delayed 20 mg PO DAILY 12/11/20 09/17/24 H istory release calcium 250 mg (as 1 tab PO DAILY 12/25/21 09/17/24 H istory citrate)-vitamin D3 5 mcg (200 unit) tablet (Citracal Regular) lisinopril 10 See Rx Instructions .Route 4 09/17/24 Rx mg-hydrochlorothiazide 12.5 mg .COMPLEX #90 tabs tablet metoprolol succinate 50 mg 50 mg PO DAILY #90 tabs 09/17/24 0 09/17/24 Rx tablet,extended release 24 hr Ejection fraction %: 60 Have you fallen in the past year?: No PFSH Medical History Shingles Post-menopausal Cancer Depression Anxiety Alcohol use Migraine headache Restless legs Smoker History of stress test History of echocardiogram Hypertension Cardiology follow-up encounter Obesity Anxiety and depression Post-menopausal bleeding Osteopenia IBS (irritable bowel syndrome) Hyperlipidemia GERD (gastroesophageal reflux disease) Raynauds syndrome Uterine fibroid Essential (primary) hypertension Ovarian cyst Paratubal cyst Surgical History History of right salpingo-oophorectomy (08/10/18) History of left salpingo-oophorectomy History of tonsillectomy [place] teeth extracted History of hysteroscopy H/O dilation and curettage History of laparoscopy Family History Father CAD (coronary artery disease) CABG age 59 Hypertension Brother Hypertension CAD (coronary artery disease) Myocardial infarction from [place] Grandmother Breast cancer Unknown Breast cancer Other CVA (cerebral vascular accident) Social History household members: spouse current occupational status: employed current occupation: [employer] history of recent travel: No Smoking Status: Current every day smoker tobacco type: e-cigarettes Electronic Cigarette Use: with nicotine alcohol intake: current alcohol intake frequency: a few times a month substance use type: does not use what type of physical activity do you participate in: walking frequency: 3-4 times per week seatbelt use: always do you feel safe at home: Yes additional social history: - Ryan ROS Const Const: Positive for fatigue and headache(s); Negative for weakness or frequent falls Eyes Eyes: Negative for blurry vision ENT ENT: Positive for headache(s); Negative for dizziness or Nosebleed/epistaxis Cardio Chest Pain: No Palpitations: No Edema: None Muscle aches with walking: None Resp R (more content not included)... Normal [facility] SCRN MAMM (CAD)W/CRYSTAL [facility] [address] [place] [id number] [facility]#: [id number] Acct: [id number] Name: YASSINE RUIZ Rep #: [id number] : 1960 F 63 From: Logan collazo MD PCP: LALITA Vernon Status: REG [facility] Study: SCRN MAMM (CAD)W/CRYSTAL BILAT Date of Exam: 12/13 10/05 Exam# [id number] Ordering Dr: Radha Reid NP RADIO PERFORMER -C [id number] MAMMOGRAPHY - BILATERAL SCREENING REASON FOR EXAM: Female, 63 years old. Routine annual screening examination. PERTINENT HISTORY: Grandmother with breast cancer. Aunt with breast cancer. Prior left stereotactic breast biopsy. TECHNIQUE: Digital bilateral breast crystal (3D mammographic acquisition) in the CC and MLO projections. 2-D mediolateral oblique (MLO) and craniocaudad (CC) views of both breasts were obtained. CAD: Full Field Digital Mammography with Computer Added Detection was performed. COMPARISON: Comparison is made with prior study dated December 10, 2022 and December 07, 2021. FINDINGS: Breast Composition: The breasts are heterogeneously dense, which may obscure small masses. There are no dominant masses or suspicious calcifications. A tissue clip marker is once again seen in the deep inferior medial aspect of the left breast. Stable fat-containing axillary lymph nodes. No other significant abnormalities are identified. There has been no significant change since the prior study. BI/SCRN MAMM (CAD)W/CRYSTAL BILAT IMPRESSION: Stable bilateral screening mammogram. Yearly follow-up mammogram recommended. (A) ASSESSMENT CATEGORY: BIRADS Category 2: Benign. A letter regarding these results will be sent to the patient by the facility within 30 days. Approximately 10% of breast cancers are not detected by mammography. A normal mammogram should not delay biopsy of a clinically suspicious abnormality. [id number] Electronically Signed: Logan Russell MD at 9:52 EDT , CC: LALITA Cotton; LALITA Reid Aviation Electronic Warfare Operator: Signed Normal [facility] Cardiology Visit Reporton Cardiology Visit Report [facility] [address] [place] [address] OFFICE VISIT Date of Service: 12/19/23 MR#: [id number] Acct: [id number] Name: YASSINE RUIZ Rep #: [id number] : 1960 Provider: LALITA neville Age/Sex: 63/F Location: [facility] Status: Signed HPI HPI History of Present Illness Details: This is a pleasant 63-year-old lady who presents to the office today for an out patient cardiovascular appointment. She has a history of hypertension and an abnormal EKG. She was evaluated with the above with an echocardiogram which was normal. She had previously been on the beta-salazar and Aldactone for high blood pressure and this was discontinued and she was put on hydrochlorothiazide with lisinopril. From a cardiac standpoint, the patient is doing well. She denies any palpitations, chest pain, pressure or heaviness. She does acknowledge SOB with exertion-walking too fair, or climbing stairs- this is nothing new or worsening. She denies Orthopnea, and PND. She does not have bleeding issues; no blood in urine, stool or nosebleeds. She does acknowledge fatigue. She denies myalgias, or claudication. She does not have edema, or sudden weight gain. She does have occasional lightheadedness with quick positional changes. She denies dizziness, syncopal or near syncopal episodes, and headaches. Intake Vital Signs 09/23/23 15:56 12/19/23 09:30 12/19/23 09:33 Height 5 ft 8 in 5 ft 8 in 5 ft 8 in Weight: 215 lb BMI 32.6 BP 125/87 H Blood Pressure Location Lt brachial Position Sitting Respiration 18 Pulse 103 H Pulse Source Monitor Pulse Oximetry (%) 98 Intake Visit Reasons: 6-9 M FU Occupational Therapy Co Director Required: No Is patient in pain?: No Allergies adhesive tape Allergy (Verified 12/19/23 09:39) Swelling latex Allergy (Verified 12/19/23 09:39) Swelling Medications ???Medication ???Instructions ???Recorded ???Confirmed ???Type amitriptyline 50 mg tablet 50 mg PO QHS 08/18/15 12/19/23 History cholecalciferol (vitamin D3) 25 2,000 unit PO DAILY 07/06/16 12/19/23 History mcg (1,000 unit) chewable tablet multivitamin 1 ea PO DAILY 08/04/18 12/19/23 History alprazolam 0.5 mg tablet 0.5 mg PO DAILY PRN PRN Anxiety 8 12/11/20 12/19/23 History days #30 tabs duloxetine 20 mg capsule,delayed 20 mg PO DAILY 12/11/20 12/19/23 History release calcium citrate 250 mg 1 tab PO DAILY 12/25/21 12/19/23 History calcium-vitamin D3 5 mcg (200 unit) tablet (Citracal Regular) lisinopril 10 See Rx Instructions .Route 03/18/23 12/19/23 Rx mg-hydrochlorothiazide 12.5 mg .COMPLEX #90 tabs tablet metoprolol succinate 25 mg 25 mg PO DAILY #90 tabs 11/28/23 12/19/23 Rx tablet,extended release 24 hr (Toprol XL) [facility] Medical History Shingles Post-menopausal Cancer Depression Anxiety Alcohol use Migraine headache Restless legs Smoker History of stress test History of echocardiogram Hypertension Cardiology follow-up encounter Obesity Anxiety and depression Post-menopausal bleeding Osteopenia IBS (irritable bowel syndrome) Hyperlipidemia GERD (gastroesophageal reflux disease) Raynauds syndrome Uterine fibroid Essential (primary) hypertension Ovarian cyst Paratubal cyst Surgical History History of right salpingo-oophorectomy (08/10/18) History of left salpingo-oophorectomy History of tonsillectomy [place] teeth extracted History of hysteroscopy H/O dilation and curettage History of laparoscopy Family History Father CAD (coronary artery disease) CABG age 59 Hypertension Brother Hypertension CAD (coronary artery disease) Myocardial infarction from [place] Grandmother Breast cancer Unknown Breast cancer Other CVA (cerebral vascular accident) Social History household members: spouse current occupational status: employed current occupation: [employer] Insurance history of recent travel: No Smoking Status: Current every day smoker tobacco type: e-cigarettes Electronic Cigarette Use: with nicotine alcohol intake: current alcohol intake frequency: a few times a month substance use type: does not use what type of physical activity do you participate in: walking frequency: 3-4 times per week seatbelt use: always do you feel safe at home: Yes additional social history: - Ryan Parada Const: Positive for fatigue; Negative for weakness, fever(s), headache(s), chills, frequent falls, weight gain or weight loss Eyes Eyes: Negative for blind spots, loss of peripheral vision, transient loss of vision, bl (more content not included)... Normal [facility] Inital Evaluation (1) - PTon 10-10-2023 Inital Evaluation (1) - PT [facility] Physical Therapy [facility] [address] [place] [address] / REHABILITATION SERVICES INITIAL EVALUATION MR#: [id number] Acct: [id number] Name: YASSINE RUIZ Rep #: [id number] : 1960 63 From: Danie Cotton DPT, OCS, CSCS Referring Dr.: LALITA Vernon Status: [facility] Insurance: [facility] [id number] SELF PAY INSURANCE Patient's Visit Information Visit Information Visit Information: YASSINE RUIZ is a 63 year old F referred to Physical Therapy by LALITA Vernon with a diagnosis of dizzyness. Date of Evaluation: 10/10/23 Physical Therapist: Danie Cotton DPT, STELLA, CSCS Visit Plan Frequency: 1-2x /Week Duration: 2-4 Weeks Plan: 1-2x/week as needed for up to 4 weeks for positional treatemnts and activity reintegration as needed/balance. Subjective Subjective: 2-3 weeks ago started vertigo which she has had in the past. It acts up now and then. Was getting out of bed. Symptoms were spinning for a minute. [place] Ok after that . Getting vertigo now getting out of bed, bending down. fell one time hitting arm on mantle. One time turning in shower for a number of minutes. Holds on when it happens. Also happens getting hair done this week. Some days cannot walk straight on bad days. Had it last night trying [place]. Sleep is OK. 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 Hobbies: walking and shopping and wouldn't do them on a bad day. Basic ADL are going OK when not spinning. Objective Objective: Walks I into PT with good balance. Trasnfers easily, Steps with one rail, hesitant to look up walking but otherwise no problems. Full cervical and UE AROM WFL and no pain. Strength UE 4/5 without myotomal problems. + R HD, treated with william adn then -. + L HD treated with william and not retested. Both positive tests were up torsional immediate nystagmus and 5-7 sec duration. Bruise on L upper arm from recent fall. Balance/Special Test Scores Functional Gait Assessment Score: 28 % Disability: 6.6700 Dizziness Score: 30 Goals Goal 1:: abolish dizzyness in bed and bedning over Goal Time Frame: 2-4 Weeks Goal 2:: 30/30 FGA Goal Time Frame: 2-4 Weeks Goal 3:: Resume walking for fitness Goal Time Frame: 2-4 Weeks Goal 4:: DHI score 4 or less Goal Time Frame: 2-4 Weeks Rehabilitation Potential Physical Therapy Diagnosis: positional vertigo limiting comfotable,safe function. Rehabilitation Potential: Good Anticipated Interventions Patient/Client Instruction: Educate patient on: Condition For the Purpose of:: To increase tolerance to activity/condition/positi on, To improve ability of physical actions for home/community/work/leisu re and To improve gait and locomotor functions Therapeutic Exercise to Include: Balance training Comment: positional ex and maneuvers For the Purpose of:: To increase tolerance to activity/condition/positi on and To improve gait and locomotor functions Text: Thank you for the opportunity to evaluate your patient. For Medicare and Medicare HMO plans, please review the plan of care and approve it. It will need to be FAXED BACK to us at [phone] for Medicare purposes. For Medicare only, by signing this I certify the plan of care. Please let me know if there are questions or concerns regarding this plan of care. Physician Signature: Date: _ 10/10/23 0736 CC: LALITA Cotton EBG Signed Normal [facility] Dexa Bone Density Studyon Dexa Bone Density Study [facility] [address] [place], [place] [id number] Dexa Bone Density Study MR#: [id number] Acct: [id number] Name: YASSINE RUIZ Rep #: [id number] : 1960 F 63 From: Logan collazo MD PCP: LALITA Vernon Status: REG CL Study: Dexa Bone Density Study Date of Exam: 09/23/23 Exam# [id number] Ordering Dr: Katerin Cotton [id number] STUDY: DUAL ENERGY X-RAY ABSORPTIOMETRY / DXA REASON FOR EXAM: Female, 63 years old. [id number] TECHNIQUE: Bone Mineral Density (BMD) measurements of lumbar spine and bilateral hips were obtained. COMPARISON: Comparison is made with prior study dated September 13, 2020. FINDINGS: Lumbar Spine (L1-L4): g/cm2 (0.988) / T-score (-0.5) / Z-score (1.1) Findings are suggestive of normal bone density with a low fracture risk. Left Femur Total: g/cm2 (0.931) / T-score (-0.1) / Z-score (1.0) Left Femoral Neck: g/cm2 (0.763) / T-score (-0.8) / Z-score (0.7) Right Femur Total: g/cm2 (0.911) / T-score (-0.3) / Z-score (0.9) Right Femoral Neck: g/cm2 (0.715) / T-score (-1.2) / Z-score (0.2) The T-Scores on the most recent prior examination were: Lumbar Spine (L1-L4): There has been worsening of bone density since the previous examination. Left Femur Total: which represents an improvement of 8%. Right Femur Total: which represents an improvement of 7.9%. BD/Dexa Bone Density Study IMPRESSION: The patient is considered osteopenic as outlined below according to World Marcos Organization (WHO) criteria with a low fracture risk. There has been improvement of bone density since the previous examination. Reference Information: The T-score is the number of standard deviations above or below the standard which is normal for young adults at their peak bone mineral density. The World Health Organization (WHO) interprets the T-scores as follows: Above -1 Normal bone density Between -1 and -2.5 Osteopenia Equal to / or below -2.5 Osteoporosis As a practical clinical guideline, osteopenia may be graded as follows: Mild -1 through -1.5 Moderate -1.6 through -2.0 Severe -2.1 through -2.4 The Z-score is the number of standard deviations above or below age-matched controls. A Z-score of less than -1.5 would be considered abnormal. References: 1. NIH Osteoporosis and Related Bone Diseases www osteo.org 2. International Society for Clinical Densitometry www iscd.org 3. National Osteoporosis Foundation www nof.org Electronically Signed: Logan Russell MD at 15:21 EDT , CC: LALITA Cotton [employer] Electronic Warfare Operator: Signed Normal [facility] Absolute lymphocyte countOrd ered By: Leigh Amador on 03-17-2023 Lymphocytes Auto (Unsp spec) [#/Vol] 1.50 10*3/uL 0.83-4.51 [facility] Basophil percentageOrdered B y: Leigh Amador on 03-17-2023 Basophils/100 WBC (Bld) 0.5 % 0-1 [facility] Chloride [Moles/Vol] 101 mmol/L 98-107 [facility] Eosinophils/100 WBC (Bld) 0.0 % 0-5 [facility] Glucose [Mass/Vol] 99 mg/dL 74-106 [facility] Neutrophils (Bld) [#/Vol] 4.3 10*3/uL 2.0-7.7 [facility] Neutrophils/100 WBC (Bld) 66.4 % 47-70 [facility] Potassium [Moles/Vol] 4.7 mmol/L 3.5-5.1 [facility] Comment on above: Slight Hemolysis, Re sult may be falsely increased. Sodium [Moles/Vol] 136 mmol/L 136-145 [facility] WBC (Bld) [#/Vol] 6.5 10*3/uL 4.4-11.0 [facility] Blood erythrocytes count (nu mber/volume)Ordered By: Leigh Amador on 03-17-2023 RBC (Bld) [#/Vol] 4.80 10*6/uL 4.2-5.4 [facility] Blood hemoglobin measurement (mass/volume)Ordered By: Leigh Amador on 03-17-2023 Hemoglobin (Bld) [Mass/Vol] 14.0 g/dL 12.0-15.0 [facility] Blood lymphocytes/100 leukoc ytesOrdered By: Leigh Amador on 03-17-2023 Lymphocytes/100 WBC (Bld) 23.2 % 19-41 [facility] Blood monocytes/100 leukocyt esOrdered By: Leigh Amador on 03-17-2023 Monocytes/100 WBC (Bld) 9.6 % 0-10 [facility] Blood platelet mean volumeOr dered By: Leigh Amador on 03-17-2023 Platelet mean volume (Bld) [Entitic vol] 9.1 fL 6.2-12.0 [facility] Determination of erythrocyte mean corpuscular volume (MCV)Ordered By: Leigh Amador on 03-17-2023 MCV (RBC) [Entitic vol] 90.4 fL 81-99 [facility] Hematocrit Auto (Bld) [Volum e fraction]Ordered By: Leigh Amador on 03-17-2023 Hematocrit (Bld) [Volume fraction] 43.4 % 37-47 [facility] Laboratory - Chemistry and C hemistry - challengeOrdered By: Leigh Amador on 03-17-2023 CO2 [Moles/Vol] 29.0 mmol/L 21.0-32.0 [facility] Natriuretic peptide B (Bld) [Mass/Vol] 9.6 pg/mL 0-100 [facility] Urea nitrogen/Creatinine [Mass ratio] 11.4 mg/mg 10-20 [facility] Laboratory - Hematology and Cell countsOrdered By: Leigh Amador on 03-17-2023 Erythrocyte distribution width (RBC) [Entitic vol] 41.1 fL 35.1-43.9 [facility] Erythrocyte distribution width (RBC) [Ratio] 12.5 % 11.6-14.6 [facility] Immature granulocytes/100 WBC (Bld) 0.300 % 0.0-0.9 [facility] Comment on above: IG% - Immature Granu locytes (promyelocytes, myelocytes and metamyelocytes) > 1% indicates that a LEFT SHIFT is Present. MCH (RBC) [Entitic mass] 29.2 pg 27.0-32.0 [facility] Nucleated RBC/100 WBC (Bld) [Ratio] 0 % 0-5 [facility] MCHC Auto (RBC) [Mass/Vol]Or dered By: Leigh Amador on 03-17-2023 MCHC (RBC) [Mass/Vol] 32.3 g/dL 32-36 [facility] No Panel InformationOrdered By: Leigh Amador on 03-17-2023 Estimated GFR (MDRD) Amer 95 mL/min >60 [facility] Comment on above: GFR Calc Estimated GFR (MDRD) Non-Af Amer 78 mL/min >60 [facility] Comment on above: Non- GFR Calc Thyroid Stimulating Hormone (TSH) 1.33 uIU/mL 0.358-3.74 [facility] Platelets bldOrdered By: Inder Amador on 03-17-2023 Platelets (Bld) [#/Vol] 255 10*3/uL 150-450 [facility] Serum or plasma calcium yani urement (mass/volume)Ordered By: Leigh Amador on 03-17-2023 Calcium [Mass/Vol] 9.8 mg/dL 8.5-10.1 [facility] Serum or plasma creatinine m easurement (mass/volume)Ordered By: Leigh Amador on 03-17-2023 Creatinine [Mass/Vol] 0.79 mg/dL 0.55-1.02 [facility] Comment on above: The validity of the calculated GFR & GFRAA in patients over 70 years has not been determined. Clinical correlation is essential. Serum or plasma urea nitroge n measurement (mass/volume)Ordered By: Leigh Amador on 03-17-2023 Urea nitrogen [Mass/Vol] 9 mg/dL 7-18 [facility] Thin prep Papanicolaou smear with manual screeningOrdered By: Leigh Amador on 03-17-2023 Thin prep Papanicolaou smear with manual screening 6 5-15 [facility] Absolute lymphocyte countOrd ered By: Katerin Cotton on 02-07-2023 Lymphocytes Auto (Unsp spec) [#/Vol] 1.79 10*3/uL 0.83-4.51 [facility] Basophil percentageOrdered B y: Katerin Cotton on 02-07-2023 Basophils/100 WBC (Bld) 0.7 % 0-1 [facility] Bilirubin [Mass/Vol] 0.50 mg/dL 0.20-1.00 [facility] Comment on above: For patients on eltr ombopag therapy, use of Dimension [place] TBIL is not recommended. Chloride [Moles/Vol] 104 mmol/L 98-107 [facility] Cholesterol [Mass/Vol] 201 mg/dL <200 [facility] Comment on above: <200 mg/dL Desirable 200-240 mg/dL Borderline >240 mg/dL High Risk Eosinophils/100 WBC (Bld) 2.5 % 0-5 [facility] Glucose [Mass/Vol] 108 mg/dL 74-106 [facility] Comment on above: Fasting Glucose resu lt from 100 to 125 mg/dL suggests IMPAIRED HOMEOSTASIS per A.D.A. criteria. Neutrophils (Bld) [#/Vol] 3.6 10*3/uL 2.0-7.7 [facility] Neutrophils/100 WBC (Bld) 58.3 % 47-70 [facility] Potassium [Moles/Vol] 4.2 mmol/L 3.5-5.1 [facility] Protein [Mass/Vol] 7.6 g/dL 6.4-8.2 [facility] Sodium [Moles/Vol] 133 mmol/L 136-145 [facility] Triglyceride [Mass/Vol] 134 mg/dL <199 [facility] Comment on above: The drugs N-Acetylcy steine and Metamizole may falsely depress this assay.Serum Triglycerides Reference Interval Normal <150 mg/dL Borderline high 150 - 199 mg/dL High 200 - 499 mg/dL Very High > or = 500 mg/dL WBC (Bld) [#/Vol] 6.1 10*3/uL 4.4-11.0 [facility] Blood erythrocytes count (nu mber/volume)Ordered By: Katerin Cotton on 02-07-2023 RBC (Bld) [#/Vol] 4.75 10*6/uL 4.2-5.4 [facility] Blood hemoglobin measurement (mass/volume)Ordered By: Katerin Cotton on 02-07-2023 Hemoglobin (Bld) [Mass/Vol] 14.0 g/dL 12.0-15.0 [facility] Blood lymphocytes/100 leukoc ytesOrdered By: Katerin Cotton on 02-07-2023 Lymphocytes/100 WBC (Bld) 29.4 % 19-41 [facility] Blood monocytes/100 leukocyt esOrdered By: Katerin Cotton on 02-07-2023 Monocytes/100 WBC (Bld) 8.9 % 0-10 [facility] Blood platelet mean volumeOr dered By: Katerin Cotton on 02-07-2023 Platelet mean volume (Bld) [Entitic vol] 9.0 fL 6.2-12.0 [facility] Determination of erythrocyte mean corpuscular volume (MCV)Ordered By: Katerin Cotton on 02-07-2023 MCV (RBC) [Entitic vol] 89.9 fL 81-99 [facility] Hematocrit Auto (Bld) [Volum e fraction]Ordered By: Katerin Cotton on 02-07-2023 Hematocrit (Bld) [Volume fraction] 42.7 % 37-47 [facility] Laboratory - Chemistry and C hemistry - challengeOrdered By: Katerin Cotton on 02-07-2023 ALP [Catalytic activity/Vol] 105 U/L 45-117 [facility] ALT [Catalytic activity/Vol] 21 U/L 13-56 [facility] CO2 [Moles/Vol] 28.0 mmol/L 21.0-32.0 [facility] Globulin (S) [Mass/Vol] 3.9 g/dL 2.2-4.2 [facility] Urea nitrogen/Creatinine [Mass ratio] 10.6 mg/mg 10-20 [facility] Laboratory - Hematology and Cell countsOrdered By: Katerin Cotton on 02-07-2023 Erythrocyte distribution width (RBC) [Entitic vol] 41.6 fL 35.1-43.9 [facility] Erythrocyte distribution width (RBC) [Ratio] 12.6 % 11.6-14.6 [facility] Immature granulocytes/100 WBC (Bld) 0.200 % 0.0-0.9 [facility] Comment on above: IG% - Immature Granu locytes (promyelocytes, myelocytes and metamyelocytes) > 1% indicates that a LEFT SHIFT is Present. MCH (RBC) [Entitic mass] 29.5 pg 27.0-32.0 [facility] Nucleated RBC/100 WBC (Bld) [Ratio] 0 % 0-5 [facility] MCHC Auto (RBC) [Mass/Vol]Or dered By: Katerin Cotton on 02-07-2023 MCHC (RBC) [Mass/Vol] 32.8 g/dL 32-36 [facility] No Panel InformationOrdered By: Katerin Cotton on 02-07-2023 Estimated GFR (MDRD) Amer 100 mL/min >60 [facility] Comment on above: GFR Calc Estimated GFR (MDRD) Non-Af Amer 83 mL/min >60 [facility] Comment on above: Non- GFR Calc Thyroid Stimulating Hormone (TSH) 1.02 uIU/mL 0.358-3.74 [facility] Vitamin D 25-Hydroxy 89.8 ng/mL [facility] Comment on above: Vitamin D 25(OH) Sta tus Range Deficiency <20 ng/mL (50nmol/L) Insufficiency 20 - 30 ng/mL (50 - 75 nmol/L) Sufficiency 30 - 100 ng/mL (75 - 250 nmol/L) Toxicity >100 ng/mL (>250 nmol/L) Platelets bldOrdered By: Rafael Cotton on 02-07-2023 Platelets (Bld) [#/Vol] 284 10*3/uL 150-450 [facility] Serum or plasma albumin yani urement (mass/volume)Ordered By: Katerin Cotton on 02-07-2023 Albumin [Mass/Vol] 3.7 g/dL 3.2-5.0 [facility] Serum or plasma albumin/glob ulin mass ratioOrdered By: Katerin Cotton on 02-07-2023 Albumin/Globulin [Mass ratio] 0.9 {ratio} 0.9-2.4 [facility] Serum or plasma calcium yani urement (mass/volume)Ordered By: Katerin Cotton on 02-07-2023 Calcium [Mass/Vol] 9.0 mg/dL 8.5-10.1 [facility] Serum or plasma cholesterol in HDL measurement (mass/volume)Ordered By: Katerin Cotton on 02-07-2023 Cholesterol in HDL [Mass/Vol] 68 mg/dL >40 [facility] Comment on above: The drugs N-Acetylcy steine and Metamizole may falsely depress this assay. Reference Range HDL <40 mg/dL Low HDL Cholesterol HDL >or= 60 mg/dL High HDL Cholesterol Serum or plasma cholesterol in VLDL measurement (mass/volume)Ordered By: Katerin Cotton on 02-07-2023 Cholesterol in VLDL [Mass/Vol] 27 mg/dL 5-40 [facility] Serum or plasma creatinine m easurement (mass/volume)Ordered By: Katerin Cotton on 02-07-2023 Creatinine [Mass/Vol] 0.75 mg/dL 0.55-1.02 [facility] Comment on above: The validity of the calculated GFR & GFRAA in patients over 70 years has not been determined. Clinical correlation is essential. Serum or plasma low density lipoprotein (LDL) cholesterol measurement (mass/volume)Ordered By: Katerin Cotton on 02-07-2023 Cholesterol in LDL [Mass/Vol] 106 mg/dL 0-130 [facility] Serum or plasma urea nitroge n measurement (mass/volume)Ordered By: Katerin Cotton on 02-07-2023 Urea nitrogen [Mass/Vol] 8 mg/dL 7-18 [facility] Thin prep Papanicolaou smear with manual screeningOrdered By: Katerin Cotton on 02-07-2023 Thin prep Papanicolaou smear with manual screening 17 U/L 15-37 [facility] Thin prep Papanicolaou smear with manual screening 1 5-15 [facility] No Panel Informationon 12-18 Thyroid Stimulating Hormone (TSH) 1.55 uIU/mL 0.358-3.74 [facility] Work Phone: URINE PHANI CULTURE-IDENTIFICA [place] ([phone])Ordered By: Mincing Machine Operator on 08-22-2020 Bacteria identified Cx Nom (U) Final report Normal [facility]; [facility] Work Phone: Comment on above: PATIENT NOT FASTINGP ERFORMED BY: [facility] [id number] Information: SRC:UC Bacteria identified Cx Nom (U) MUG Normal [facility]; [facility] Work Phone: Comment on above: Mixed urogenital joyce ra200 Colonies/mL . PATIENT NOT FASTINGP ERFORMED BY: Lux[facility] RetreatsFormerly [facility] [id number] Information: SRC:UC Urinalysis, Office ([id number])Or dered By: Blue Babb on 08-21-2020 Bilirubin Ql (U) Negative Normal [facility]; [facility] Work Phone: Glucose Test strip (U) [Mass/Vol] Negative Normal [facility]; [facility] Work Phone: Hemoglobin Ql (U) Negative Normal [facility]; [facility] Work Phone: Ketones Ql (U) Negative Normal [facility]; [facility] Work Phone: Leukocyte esterase Test strip Ql (U) Moderate Normal [facility]; [facility] Work Phone: Nitrite Ql (U) Negative Normal [facility]; [facility] Work Phone: pH (U) 6 [pH] Abnormal [facility]; [facility] Work Phone: Protein Ql (U) Negative Normal [facility]; [facility] Work Phone: Specific gravity (U) [Rel density] 1.015 1 Normal [facility]; [facility] Work Phone: Urobilinogen (24H U) [Mass/Time] Normal Normal [facility]; [facility] Work Phone: Urinalysis, Office ([phone])Or dered By: Blue Joe on 08-05-2018 Bilirubin Ql (U) Negative Normal [facility] Work Phone: Glucose Test strip mass conc (U) Negative Normal [facility] Work Phone: Hemoglobin Ql (U) Negative Normal [facility] Work Phone: Ketones Ql (U) Negative Normal [facility] Work Phone: Leukocyte esterase Test strip Ql (U) Negative Normal [facility] Work Phone: Nitrite Ql (U) Negative Normal [facility] Work Phone: pH (U) 6 [pH] Abnormal [facility] Work Phone: Protein Ql (U) Negative Normal [facility] Work Phone: Specific gravity Relative Density (U) 1.010 1 Normal [facility] Work Phone: Urobilinogen mass/time (24H U) Normal Normal [facility] Work Phone: Urinalysis, Office ([phone])Or dered By: Blue Babb on 08-05-2018 Bilirubin Ql (U) Negative Normal [facility]; [facility] Work Phone: Glucose Test strip (U) [Mass/Vol] Negative Normal [facility]; [facility] Work Phone: Hemoglobin Ql (U) Negative Normal [facility]; [facility] Work Phone: Ketones Ql (U) Negative Normal [facility]; [facility] Work Phone: Leukocyte esterase Test strip Ql (U) Negative Normal [facility]; [facility] Work Phone: Nitrite Ql (U) Negative Normal [facility]; [facility] Work Phone: Protein Ql (U) Negative Normal [facility]; [facility] Work Phone: [facility] Metabolic Prof ilOrdered By: Mincing Machine Operator on 05-31-2017 Comprehensive metabolic 2000 panel 13.9 {RATIO} Normal 10-20 [facility] Work Phone: Comment on above: [facility] [id number] [place], [place], [id number] [facility] 2000 panel 97 mL/min Normal [facility] Work Phone: Comment on above: GFR Calc [facility] [id number] [place], [place], [id number] [facility] 2000 panel 80 mL/min Normal [facility] Work Phone: Comment on above: Non- GFR Calc [facility] [address] [place], [place], [id number] [facility] 2000 panel 0.79 mg/dL Normal 0.55-1.02 [facility] Work Phone: Comment on above: The validity of the calculated GFR AND GFRAA in patients over70 years has not been determined. Clinical correlation isessential. [facility] [address] [place], [place], [id number] [facility] 2000 panel 11 mg/dL Normal 7-18 [facility] Work Phone: Comment on above: [facility] [address] [place], [address] Comprehensive [facility] 2000 panel 93 mg/dL Normal 74-106 [facility] Work Phone: Comment on above: Please note revised GLUCOSE reference range [id number]/02/2018. [facility] [address] [place], [place], [address] [facility] 2000 panel 31.0 mmol/L Normal 21.0-32.0 [facility] Work Phone: Comment on above: [facility] [address] [place], [address] [facility] 2000 panel 18 U/L Normal 15-37 [facility] Work Phone: Comment on above: [facility] [address] [place], [address] [facility] 2000 panel 21 U/L Normal 13-56 [facility] Work Phone: Comment on above: Please note revised ALT reference range [id number]/28/2018. [facility] [address] [place], [place], [id number] [facility] 2000 panel 7 1 Normal 5-15 [facility] Work Phone: Comment on above: [facility] [address] [place], [place], [address] Comprehensive [facility] 2000 panel 4.1 mmol/L Normal 3.5-5.1 [facility] Work Phone: Comment on above: [facility] [address] [place], [address] Comprehensive [facility] 2000 panel 141 mmol/L Normal 136-145 [facility] Work Phone: Comment on above: [facility] [address] [place], [address] [facility] 2000 panel 9.1 mg/dL Normal 8.5-10.1 [facility] Work Phone: Comment on above: [facility] [address] [place], [place], [address] Comprehensive metabolic 2000 panel 103 mmol/L Normal 98-107 [facility] Work Phone: Comment on above: [facility] [address] [place], [place], [address] [facility] 2000 panel 89 U/L Normal 45-117 [facility] Work Phone: Comment on above: [facility] [address] [place], [place], [id number] [facility] 2000 panel 0.40 mg/dL Normal 0.20-1.00 [facility] Work Phone: Comment on above: [facility] [address] [place], [place], [id number] [facility] 2000 panel 1.1 {RATIO} Normal 0.9-2.4 [facility] Work Phone: Comment on above: [facility] [address] [place], [place], [address] [facility] 2000 panel 3.7 g/dL Normal 2.2-4.2 [facility] Work Phone: Comment on above: [facility] [address] [place], [place], [address] [facility] 2000 panel 3.9 g/dL Normal 3.2-5.0 [facility] Work Phone: Comment on above: [facility] [address] [place], [place], [address] Comprehensive [facility] 2000 panel 7.6 g/dL Normal 6.4-8.2 [facility] Work Phone: Comment on above: [facility] [id number] [place], [place], [address] Lipid ProfileOrdered By: Alyssa tem Lead Clinical Research Coordinator on 05-31-2017 Cholesterol in HDL mass conc 60 mg/dL Normal [facility] Work Phone: Comment on above: The drugs N-Acetylcy steine and Metamizole may falselydepress this assay. Reference Range HDL <40 mg/dL Low HDL Cholesterol HDL >or= 60 mg/dL High HDL Cholesterol [facility] [address] [place], [place], [address] Cholesterol in LDL [Mass/Vol] 114 mg/dL Normal 0-130 [facility] Work Phone: Comment on above: [facility] [address] [place], [place], [address] Cholesterol in LDL mass conc 114 mg/dL Normal 0-130 [facility] Work Phone: Cholesterol in VLDL mass conc 20 mg/dL Normal 5-40 [facility] Work Phone: Cholesterol mass conc 194 mg/dL Normal [facility] Work Phone: Comment on above: <200 mg/dL Desirable 200-240 mg/dL Borderline >240 mg/dL High Risk [facility] [id number] [place], [place], [address] Triglyceride mass conc 99 mg/dL Normal [facility] Work Phone: Comment on above: The drugs N-Acetylcy steine and Metamizole may falselydepress this assay.Serum Triglycerides Reference Interval Normal <150 mg/dL Borderline high 150 - 199 mg/dL High 200 - 499 mg/dL Very High > or = 500 mg/dL [facility] [address] [place], [place], [address] Lipid Profile 20 mg/dL Normal 5-40 [facility] Work Phone: Comment on above: [facility] [id number] [place], [place], [address] Vitamin D,25 HydroxyOrdered By: Mincing Machine Operator on 05-31-2017 Vitamin D 25-OH 45.2 ng/mL Normal 19.95-100.0 1 [facility] Work Phone: Comment on above: Vitamin D 25(OH) Sta tus Range Deficiency <20 ng/mL (50nmol/L) Insuffciency 20 - 30 ng/mL (50 - 75 nmol/L) Sufficiency 30 - 100 ng/mL (75 - 250 nmol/L) Toxicity >100 ng/mL (>250 nmol/L) Vitamin D,25 Hydroxy 45.2 ng/mL Normal 19.95-1 00.0 1 [facility] Work Phone: Comment on above: Vitamin D 25(OH) Sta tus Range Deficiency <20 ng/mL (50nmol/L) Insuffciency 20 - 30 ng/mL (50 - 75 nmol/L) Sufficiency 30 - 100 ng/mL (75 - 250 nmol/L) Toxicity >100 ng/mL (>250 nmol/L) [facility] [address] [place], [id number] ; OV 06/06 Calcium,TotalOrdered By: Alyssa tem Lead Clinical Research Coordinator on 02-10-2017 Calcium mass conc 9.2 mg/dL Normal 8.5-10.1 Compreh ensive Internal Medicine Work Phone: Comment on above: [facility] [address] [place], [place], [address] MEGA (ANTINUCLEAR ANTIBODY) ( [id number])Ordered By: Mincing Machine Operator on 01-24-2017 Nuclear Ab Ql (S) Negative Normal Compreh ensive Internal Medicine Work Phone: Comment on above: PATIENT WAS FASTINGP ERFORMED BY: [employer] [facility] Cqgjbe1174 3SP GroupMission Family Health Centerin [place] [id number] Nuclear Ab Ql (S) Negative Normal Compreh ensive Internal Medicine; [facility] Work Phone: Comment on above: PATIENT WAS FASTINGP ERFORMED BY: [employer] [facility] Yobwje2776 [place] [id number] C-REACTIVE PROTEIN ([id number])Or dered By: Mincing Machine Operator on 01-24-2017 CRP mass conc 4.1 mg/L Normal 0.0-4.9 [facility] Work Phone: Comment on above: PATIENT WAS FASTINGP ERFORMED BY: ALICIA [employer] Ciqrbj1783 [facility] [id number] CALCIFIDIOL ([id number]) VIT D 25 Ordered By: Mincing Machine Operator on 01-24-2017 25-Hydroxyvitamin D2+25-Hydroxyvitamin D3 mass conc 78.7 ng/mL Normal 30.0-100.0 [facility] Internal Medicine Work Phone: Comment on above: Vitamin D deficiency has been defined by the [place] of[facility] Hospital[facility] and an Endocrine Society practice guideline as alevel of serum 25-OH vitamin D less than 20 ng/mL (1,2).The Endocrine Society went on to further define vitamin Dinsufficiency as a level between 21 and 29 ng/mL (2).1. IOM ([place] of Medicine). 2010. Dietary reference intakes for calcium and D. [place]: The National Academies Press.2. Diego MF, Yayo LIU, Peter VELA, et al. Evaluation, treatment, and prevention of vitamin D deficiency: an Endocrine Society clinical practice guideline. JCEM. 2010; 96(7):1911-30. PATIENT WAS FASTINGP ERFORMED BY: ALICIA [employer]6370 [facility] [id number] CBC (AUTO) ([id number])Ordered By : Mincing Machine Operator on 01-24-2017 Erythrocyte distribution width (RBC) [Ratio] 13.6 % Normal 12.3-15.4 [facility] Internal Medicine Work Phone: Comment on above: PATIENT WAS FASTINGP ERFORMED BY: [employer] Jldhtg4498 [facility] [id number] Erythrocyte distribution width Auto Ratio (RBC) 13.6 % Normal 12.3-15.4 [facility] Internal Medicine Work Phone: Hematocrit (Bld) [Volume fraction] 41.5 % Normal 34.0-46.6 [facility] Internal Medicine Work Phone: Comment on above: PATIENT WAS FASTINGP ERFORMED BY: [employer] Jyymuu7141 [facility] [id number] Hematocrit Auto Volume Fraction (Bld) 41.5 % Normal 34.0-46.6 [facility] Work Phone: Hemoglobin mass conc (Bld) 14.0 g/dL Normal 11.1-15.9 [facility] Work Phone: Comment on above: PATIENT WAS FASTINGP ERFORMED BY: [place] [id number] [facility] [id number] MCH (RBC) [Entitic mass] 29.9 pg Normal 26.6-33.0 [facility] Work Phone: Comment on above: PATIENT WAS FASTINGP ERFORMED BY: [place] [id number] [facility] [id number] MCH Auto Entitic mass (RBC) 29.9 pg Normal 26.6-33.0 [facility] Work Phone: MCHC (RBC) [Mass/Vol] 33.7 g/dL Normal 31.5-35.7 [facility] Work Phone: Comment on above: PATIENT WAS FASTINGP ERFORMED BY: [place] [id number] [facility] [id number] MCHC Auto mass conc (RBC) 33.7 g/dL Normal 31.5-35.7 [facility] Work Phone: MCV (RBC) [Entitic vol] 89 fL Normal 79-97 [facility] Work Phone: Comment on above: PATIENT WAS FASTINGP ERFORMED BY: [place] [id number] [facility] [id number] MCV Auto Entitic volume (RBC) 89 fL Normal 79-97 [facility] Work Phone: Platelets (Bld) [#/Vol] 246 {x10E3/uL} Normal 150-379 [facility] Work Phone: Comment on above: PATIENT WAS FASTINGP ERFORMED BY: [place] [id number] [facility] [id number] Platelets (Bld) [#/Vol] 246 10*3/uL Normal 150-379 [facility]; [facility] Work Phone: Comment on above: PATIENT WAS FASTINGP ERFORMED BY: ALICIA [facility] Udpapo9549 [facility] [id number] Platelets Auto #/vol (Bld) 246 {x10E3/uL} Normal 150-379 [facility] Work Phone: RBC (Bld) [#/Vol] 4.69 {x10E6/uL} Normal 3.77-5.28 [facility] Internal Medicine Work Phone: Comment on above: PATIENT WAS FASTINGP ERFORMED BY: ALICIA [facility] Culytn6317 [facility] [id number] RBC (Bld) [#/Vol] 4.69 10*6/uL Normal 3.77-5.28 [facility] Internal Medicine; [facility] Work Phone: Comment on above: PATIENT WAS FASTINGP ERFORMED BY: ALICIA [facility]6370 [facility] [id number] RBC Auto #/vol (Bld) 4.69 {x10E6/uL} Normal 3.77-5.28 [facility] Work Phone: WBC (Bld) [#/Vol] 8.6 {x10E3/uL} Normal 3.4-10.8 [facility] Internal Medicine Work Phone: Comment on above: PATIENT WAS FASTINGP ERFORMED BY: ALICIA [facility] Gdbhft7572 [facility] [id number] WBC (Bld) [#/Vol] 8.6 10*3/uL Normal 3.4-10.8 [facility] Internal Medicine; [facility] Work Phone: Comment on above: PATIENT WAS FASTINGP ERFORMED BY: [facility]6370 [facility] [id number] WBC Auto #/vol (Bld) 8.6 {x10E3/uL} Normal 3.4-10.8 [facility] Work Phone: Folate ([id number])Ordered By: Sy stem Lead Clinical Research Coordinator on 01-24-2017 Folate mass conc ng/mL Normal Comprehe nsive Internal Medicine Work Phone: Comment on above: A serum folate alba ntration of less than 3.1 ng/mL isconsidered to represent clinical deficiency. PATIENT WAS FASTINGP ERFORMED BY: ALICIA [facility] Mjesic[address] [place] [id number] Lipid Panel ([id number])Ordered B y: Mincing Machine Operator on 01-24-2017 Cholesterol in HDL mass conc 63 mg/dL Normal [facility] Work Phone: Comment on above: PATIENT WAS FASTINGP ERFORMED BY: ALICIA LabAnn MoodyUorypt[address] [place] [id number] Cholesterol in LDL mass conc 123 mg/dL Abnormal 0-99 [facility] Work Phone: Comment on above: PATIENT WAS FASTINGP ERFORMED BY: ALICIA LabAnn MoodyNqgilu3245 [address] [facility] EmployersFormerly [facility] [id number] Cholesterol in LDL/Cholesterol in HDL mass ratio 2.0 {ratio_units} Normal 0.0-3.2 [facility] Work Phone: Comment on above: LDL/HDL Ratio Men Wo men 1/2 Avg.Risk 1.0 1.5 Avg.Risk 3.6 3.2 2X Avg.Risk 6.2 5.0 3X Avg.Risk 8.0 6.1 PATIENT WAS FASTINGP ERFORMED BY: ALICIA LabAnn MoodyShqqyq4672 [facility]outFormer[facility] [id number] Cholesterol in VLDL mass conc 42 mg/dL Abnormal 5-40 [facility] Work Phone: Comment on above: PATIENT WAS FASTINGP ERFORMED BY: ALICIA LabAnn Suonmw7426 [address] [place] [id number] Cholesterol mass conc 228 mg/dL Abnormal 100-199 [facility] Work Phone: Comment on above: PATIENT WAS FASTINGP ERFORMED BY: ALICIA LabAnn Oflrfi[address] [employer] [id number] Triglyceride mass conc 209 mg/dL Abnormal 0-149 [facility] Work Phone: Comment on above: PATIENT WAS FASTINGP ERFORMED BY: CB [facility] Megknn7373 [address] RoadDublin [place] [id number] METABOLIC PANEL, COMPREHENSI VE ([id number])Ordered By: Mincing Machine Operator on 01-24-2017 Albumin mass conc 4.8 g/dL Normal 3.5-5.5 [facility]preh [facility] Internal Medicine Work Phone: Comment on above: PATIENT WAS FASTINGP ERFORMED BY: CB [facility] Osmmlo6618 [address] RoadDublin [place] [id number] Albumin/Globulin mass ratio 1.7 {ratio} Normal 1.2-2.2 [facility] Work Phone: Comment on above: PATIENT WAS FASTINGP ERFORMED BY: CB [facility] Pjbpiy0384 [address] RoadDublin [place] [id number] ALP [Catalytic activity/Vol] 85 U/L Normal 39-117 [facility]; [facility] Work Phone: Comment on above: PATIENT WAS FASTINGP ERFORMED BY: CB [facility] Wtmprn7663 [address] RoadDublin [place] [id number] ALP enzyme act/vol 85 [iU]/L Normal 39-117 [facility] Internal Medicine Work Phone: Comment on above: PATIENT WAS FASTINGP ERFORMED BY: CB [facility] Pvkius3289 [address] RoadDublin [place] [id number] ALT [Catalytic activity/Vol] 16 U/L Normal 0-32 [facility]; [facility] Internal Medicine Work Phone: Comment on above: PATIENT WAS FASTINGP ERFORMED BY: CB [facility] Vcsffn8334 [address] RoadDublin [place] [id number] ALT enzyme act/vol 16 [iU]/L Normal 0-32 [facility] Internal Medicine Work Phone: Comment on above: PATIENT WAS FASTINGP ERFORMED BY: CB [facility] Qrjvlz7620 [address] RoadDublin [place] [id number] AST [Catalytic activity/Vol] 27 U/L Normal 0-40 [facility]; [facility] Work Phone: Comment on above: PATIENT WAS FASTINGP ERFORMED BY: ALICIA LabCokelsey Esgtep[address] [facility] [id number] AST enzyme act/vol 27 [iU]/L Normal 0-40 Compre [facility] Internal Medicine Work Phone: Comment on above: PATIENT WAS FASTINGP ERFORMED BY: ALICIA LabCokelsey Kdphii[address] [facility] [id number] Bilirubin mass conc 0.3 mg/dL Normal 0.0-1.2 Compr ensive Internal Medicine Work Phone: Comment on above: PATIENT WAS FASTINGP ERFORMED BY: ALICIA LabArlettekelsey Oxdzba9764 [facility] [id number] Calcium mass conc 10.3 mg/dL Abnormal 8.7-10.2 Compreh [facility] Work Phone: Comment on above: PATIENT WAS FASTINGP ERFORMED BY: ALICIA Moodylin6370 [facility] [id number] Chloride molar conc 97 mmol/L Normal 96-106 Compr [facility] Internal Medicine Work Phone: Comment on above: PATIENT WAS FASTINGP ERFORMED BY: ALICIA LabArlettekelsey Jhekju9869 [facility] [id number] CO2 molar conc 25 mmol/L Normal 18-29 Comprehens kaila Internal Medicine Work Phone: Comment on above: PATIENT WAS FASTINGP ERFORMED BY: ALICIA LabCokelsey Cgkhzk8546 [facility] [id number] Creatinine mass conc 0.78 mg/dL Normal 0.57-1.00 Comp [facility] Work Phone: Comment on above: PATIENT WAS FASTINGP ERFORMED BY: ALICIA LabCokelsey Sfwmug7732 [facility] [id number] GFR/1.73 sq M predicted among blacks CKD-EPI vol rate/area (S/P/Bld) 98 mL/min/1.73 Normal Comprehensiv e Internal Medicine Work Phone: Comment on above: PATIENT WAS FASTINGP ERFORMED BY: ALICIA [facility] Pkfuax5531 [address] Roadblin [place] [id number] GFR/1.73 sq M predicted among non-blacks CKD-EPI vol rate/area (S/P/Bld) 85 mL/min/1.73 Normal [facility] Work Phone: Comment on above: PATIENT WAS FASTINGP ERFORMED BY: ALICIA [facility] Etvwwh5236 [address] RoadMission Family Health Centerin [place] [id number] Globulin (S) [Mass/Vol] 2.8 g/dL Normal 1.5-4.5 [facility] Work Phone: Comment on above: PATIENT WAS FASTINGP ERFORMED BY: ALICIA [facility] Pdnaks1032 [address] RoadCarePartners Rehabilitation Hospital [id number] Globulin Calculated mass conc (S) 2.8 g/dL Normal 1.5-4.5 [facility] Work Phone: Glucose mass conc 84 mg/dL Normal 65-99 Compreh ensive Internal Medicine Work Phone: Comment on above: PATIENT WAS FASTINGP ERFORMED BY: ALICIA LabCo Watphc[address] [facility]in [place] [id number] Potassium molar conc 5.2 mmol/L Normal 3.5-5.2 Comp rehensive Internal Medicine Work Phone: Comment on above: PATIENT WAS FASTINGP ERFORMED BY: ALICIA [facility] Vtmdpc[address]54 [address] [facility]in [place] [id number] Protein mass conc 7.6 g/dL Normal 6.0-8.5 Compreh ensive Internal Medicine Work Phone: Comment on above: PATIENT WAS FASTINGP ERFORMED BY: ALICIA [facility] Hsauvx9860 [address] [facility] HospitalDublin [place] [id number] Sodium molar conc 140 mmol/L Normal 134-144 Compreh ensive Internal Medicine Work Phone: Comment on above: PATIENT WAS FASTINGP ERFORMED BY: ALICIA [facility] Qsremb4878 [address] Roadblin [place] [id number] Urea nitrogen mass conc 10 mg/dL Normal 6-24 [facility] Work Phone: Comment on above: PATIENT WAS FASTINGP ERFORMED BY: ALICIA [facility] Jrxnms1319 [address] RoadDublin [place] [id number] Urea nitrogen/Creatinine mass ratio 13 mg/mg Normal 9-23 [facility] Work Phone: Comment on above: PATIENT WAS FASTINGP ERFORMED BY: CB [facility] Grygjr2516 [address] RoadDublin [place] [id number] RHEUMATOID FACTOR-QUANT ([id number] 31)Ordered By: Mincing Machine Operator on 01-24-2017 Rheumatoid factor Qn 10.2 {IU/mL} Normal 0.0-13.9 [facility] Internal Medicine Work Phone: Comment on above: PATIENT WAS FASTINGP ERFORMED BY: ALICIA [facility] Bplbmf5128 [address] RoadDublin [place] [id number] Rheumatoid factor Qn 10.2 [IU]/mL Normal 0.0-13.9 [facility] Internal Medicine; [facility] Internal Medicine Work Phone: Comment on above: PATIENT WAS FASTINGP ERFORMED BY: ALICIA [facility] Sqstrw4934 [address] RoadDublin [place] [id number] SED RATE ERYTHROCYTE ([id number]) Ordered By: Mincing Machine Operator on 01-24-2017 ESR Velocity (Bld) 3 mm/h Normal 0-40 [facility] Internal Medicine Work Phone: Comment on above: PATIENT WAS FASTINGP ERFORMED BY: ALICIA [facility] Kgibae9357 [address] RoadDublin [place] [id number] TSH ([id number])Ordered By: Syste m Lead Clinical Research Coordinator on 01-24-2017 Thyrotropin Qn 1.510 {uIU/mL} Normal 0.450-4.500 [facility] Internal Medicine Work Phone: Comment on above: PATIENT WAS FASTINGP ERFORMED BY: CB [facility] Pkbanu6742 [address] RoadDublin [place] [id number] VITAMIN B-12 (CYANOCOBALAMIN ) ([id number])Ordered By: Mincing Machine Operator on 01-24-2017 Cobalamin (Vitamin B12) mass conc 864 pg/mL Normal 211-946 [facility] Internal Medicine Work Phone: Comment on above: PATIENT WAS FASTINGP ERFORMED BY: LabCo Zkkvdn3891 [facility] [id number] Basic Metabolic Profile (BMP )Ordered By: Mincing Machine Operator on 03-11-2016 Basic metabolic 2000 panel 8.9 mg/dL Normal 8.5-10.1 [facility] Work Phone: Comment on above: 'TROP' Serial specim en #1, #2, #3, or #4: [address] [place] [address] [place], [place], [phone] Basic metabolic 2000 panel 104 mmol/L Normal 98-107 [facility] Work Phone: Comment on above: 'TROP' Serial specim en #1, #2, #3, or #4: [address] [place] [address] [place], [place], [phone] Basic metabolic 2000 panel 90 mg/dL Normal 70-110 [facility] Work Phone: Comment on above: 'TROP' Serial specim en #1, #2, #3, or #4: [address] [place] [address] [place], [place], [phone] Basic metabolic 2000 panel 10 mg/dL Normal 7-18 [facility] Work Phone: Comment on above: 'TROP' Serial specim en #1, #2, #3, or #4: [address] [place] [address] [place], [place], [phone] Basic metabolic 2000 panel 28.0 mmol/L Normal 21.0-32.0 [facility] Work Phone: Comment on above: 'TROP' Serial specim en #1, #2, #3, or #4: [address] [place] [address] [place], [place], [phone] Basic metabolic 2000 panel 9 1 Normal 5-15 [facility] Work Phone: Comment on above: 'TROP' Serial specim en #1, #2, #3, or #4: [address] [place] [address] [place], [address] Basic metabolic 2000 panel 76 mL/min Normal [facility] Work Phone: Comment on above: Non- GFR Calc 'TROP' Serial specim en #1, #2, #3, or #4: [address] [place] [address] [place], [address] Basic metabolic 2000 panel 91 mL/min Normal [facility] Work Phone: Comment on above: GFR Calc 'TROP' Serial specim en #1, #2, #3, or #4: [address] [place] [address] [place], [address] Basic metabolic 2000 panel 80.04 ml/min Normal [facility] Work Phone: Comment on above: 'TROP' Serial specim en #1, #2, #3, or #4: [address] [place] [address] [place], [address] Basic metabolic 2000 panel 3.8 mmol/L Normal 3.5-5.1 [facility] Work Phone: Comment on above: 'TROP' Serial specim en #1, #2, #3, or #4: [address] [place] [address] [place], [address] Basic metabolic 2000 panel 141 mmol/L Normal 136-145 [facility] Work Phone: Comment on above: 'TROP' Serial specim en #1, #2, #3, or #4: [address] [place] [address] [place], [address] Basic metabolic 2000 panel 12.0 {RATIO} Normal 10-20 [facility] Work Phone: Comment on above: 'TROP' Serial specim en #1, #2, #3, or #4: [address] [place] [address] [place], [place], [phone] Basic metabolic 2000 panel 0.83 mg/dL Normal 0.55-1.02 [facility] Work Phone: Comment on above: The validity of the calculated GFR AND GFRAA in patients over70 years has not been determined. Clinical correlation isessential. 'TROP' Serial specim en #1, #2, #3, or #4: [address] [place] [address] [place], [place], [phone] CBC W/Diff, AutomatedOrdered By: Mincing Machine Operator on 03-11-2016 Absolute Lymph 2.90 {X10_3/ul} Normal 0.83-4.51 Compr ehensive Internal Medicine Work Phone: Absolute Neut 4.5 {X10_3/uL} Normal 2.0-7.7 Compreh ensive Internal Medicine Work Phone: Comment on above: [facility] [address] [place], [place], [phone] Basophils/100 WBC (Bld) 0.2 % Normal 0-1 [facility] Work Phone: Comment on above: [facility] [address] [place], [address] Basophils/100 WBC Auto (Bld) 0.2 % Normal 0-1 [facility] Work Phone: Eosinophils/100 WBC (Bld) 1.6 % Normal 0-5 [facility] Work Phone: Comment on above: [facility] [address] [place], [place], [phone] Eosinophils/100 WBC Auto (Bld) 1.6 % Normal 0-5 [facility] Work Phone: Erythrocyte distribution width (RBC) [Ratio] 12.1 % Normal 11.6-14.6 [facility] Work Phone: Comment on above: [place] [id number] [place], [address] Erythrocyte distribution width Auto Ratio (RBC) 12.1 % Normal 11.6-14.6 [facility] Work Phone: Hematocrit (Bld) [Volume fraction] 39.4 % Normal 37-47 [facility] Work Phone: Comment on above: [place] [address] [place], [address] Hematocrit Auto Volume Fraction (Bld) 39.4 % Normal 37-47 [facility] Work Phone: Hemoglobin mass conc (Bld) 13.4 g/dL Normal 12.0-15.0 [facility] Work Phone: Comment on above: [place] [address] [place], [address] IM GRAN % 0.100 % Normal 0.0-0.9 [facility] Work Phone: Comment on above: IG% - Immature Granu locytes (promyelocytes, myelocytes andmetamyelocytes) > 1% indicates that a LEFT SHIFT is Present. [place] [address] [place], [address] Lymphocytes (Bld) [#/Vol] 2.90 {X10_3/ul} Normal 0.83-4.51 [facility] Work Phone: Comment on above: [place] [address] [place], [address] Lymphocytes/100 WBC (Bld) 35.0 % Normal 19-41 [facility] Work Phone: Comment on above: [place] [address] [place], [address] Lymphocytes/100 WBC Auto (Bld) 35.0 % Normal 19-41 [facility] Work Phone: MCH (RBC) [Entitic mass] 30.6 pg Normal 27.0-32.0 [facility] Work Phone: Comment on above: [facility] [address] [place], [address] MCH Auto Entitic mass (RBC) 30.6 pg Normal 27.0-32.0 [facility] Work Phone: MCHC (RBC) [Mass/Vol] 34.0 {g/gl} Normal 32-36 [facility] Work Phone: Comment on above: [facility] [address] [place], [address] MCHC Auto mass conc (RBC) 34.0 {g/gl} Normal 32-36 [facility] Work Phone: MCV (RBC) [Entitic vol] 90.0 fL Normal 81-99 [facility] Work Phone: Comment on above: [facility] [address] [place], [address] MCV Auto Entitic volume (RBC) 90.0 fL Normal 81-99 [facility] Work Phone: Monocytes/100 WBC Auto (Bld) 8.7 % Normal 0-10 [facility] Work Phone: Comment on above: [facility] [address] [place], [address] Neutrophils/100 WBC (Bld) 54.4 % Normal 47-70 [facility] Work Phone: Comment on above: [facility] [address] [place], [address] Neutrophils/100 WBC Auto (Bld) 54.4 % Normal 47-70 [facility] Work Phone: Platelet mean volume (Bld) [Entitic vol] 9.6 fL Normal 6.2-12.0 Comprehensiv e Internal Medicine Work Phone: Comment on above: [facility] [address] [place], [place], [phone] Platelet mean volume Auto Entitic volume (Bld) 9.6 fL Normal 6.2-12.0 [facility] Work Phone: Platelets (Bld) [#/Vol] 190 10*3/uL Normal 150-450 [facility] Work Phone: Comment on above: [facility] [address] [place], [address] Platelets Auto #/vol (Bld) 190 10*3/uL Normal 150-450 [facility] Work Phone: RBC (Bld) [#/Vol] 4.38 {M/mm3} Normal 4.2-5.4 [facility] Internal Medicine Work Phone: Comment on above: [facility] [address] [place], [address] RBC Auto #/vol (Bld) 4.38 {M/mm3} Normal 4.2-5.4 [facility] Internal Medicine Work Phone: RDW SD 39.0 fL Normal 35.1-43.9 [facility] Internal Medicine Work Phone: Comment on above: [facility] [address] [place], [address] WBC (Bld) [#/Vol] 8.3 10*3/uL Normal 4.4-11.0 [facility] Internal Medicine Work Phone: Comment on above: [facility] [address] [place], [address] WBC Auto #/vol (Bld) 8.3 10*3/uL Normal 4.4-11.0 [facility] Internal Medicine Work Phone: Troponin-IOrdered By: Mincing Machine Operator on 03-11-2016 Troponin I.cardiac mass conc ng/mL Normal [facility] Work Phone: Comment on above: TROPONIN-I EXPECTED VALUES <0.05 NEGATIVE 0.06 - 0.59 AT RISK OF LA > OR = 0.60 SUGGEST LA 'TROP' Serial specim en #1, #2, #3, or #4: [address] [place] [address] [address] [place], [address] GONADOTROPIN-FSH ([id number])Orde red By: Mincing Machine Operator on 03-01-2016 Follitropin Qn 79.6 m[IU]/mL Normal Compreh ensive Internal Medicine Work Phone: Comment on above: Follicular phase 3.5 - 12.5 Ovulation phase 4.7 - 21.5 Luteal phase 1.7 - 7.7 Postmenopausal 25.8 - 134.8 PATIENT NOT FASTINGP ERFORMED BY: ALICIA [facility] Yyniyr6549 [address] RoadMission Family Health Centerin [place] [id number] GONADOTROPIN-LH ([id number])Order ed By: Mincing Machine Operator on 03-01-2016 Lutropin Qn 29.6 m[IU]/mL Normal Comprehens kaila Internal Medicine Work Phone: Comment on above: Follicular phase 2.4 - 12.6 Ovulation phase 14.0 - 95.6 Luteal phase 1.0 - 11.4 Postmenopausal 7.7 - 58.5 PATIENT NOT FASTINGP ERFORMED BY: ALICIA [facility] [address] [facility] [id number] TSH ([id number])Ordered By: Octavio crabtree Lead Clinical Research Coordinator on 03-01-2016 Thyrotropin Qn 1.410 {uIU/mL} Normal 0.450-4.500 Compr ensive Internal Medicine Work Phone: Comment on above: PATIENT NOT FASTINGP ERFORMED BY: ALICIA [facility] [address] [facility] [place] [id number] CALCIFEDIOL ([id number])Ordered B y: Mincing Machine Operator on 02-19-2016 25-Hydroxyvitamin D2+25-Hydroxyvitamin D3 mass conc 57.8 ng/mL Normal 30.0-100.0 [facility] Work Phone: Comment on above: Vitamin D deficiency has been defined by the [place] ofMedicine and an Endocrine Society practice guideline as alevel of serum 25-OH vitamin D less than 20 ng/mL (1,2).The Endocrine Society went on to further define vitamin Dinsufficiency as a level between 21 and 29 ng/mL (2).1. IOM ([place] of [employer]). 2010. Dietary reference intakes for calcium and D. [place]: The National Academies Press.2. Diego MF, Yayo LIU, Peter VELA, et al. Evaluation, treatment, and prevention of vitamin D deficiency: an Endocrine Society clinical practice guideline. JCEM. 2010; 96(7):1911-30. PATIENT NOT FASTINGP ERFORMED BY: [facility] Wuiwom4468 [facility] [id number] OVARY (CHOOSE SIDE)Ordered B y: Mincing Machine Operator on 10-23-2015 OVARY (CHOOSE SIDE) See Note Normal Compr ehensive Internal Medicine Work Phone: Comment on above: Patient: DICK [place]Z : 1960 (55/F) Acct Num: [id number] Phys: Nurys Rosa MD Unit Num: [id number] [place] [facility] [place]: [id number] Received: 10/23/151406 Spec Type: OVARY TISSUES TISSUES: COMMENT The specimen shows a small piece of tissue adjacent to the fallopian tube, consistent with ovarian tissue measuring 1 cm in greatest dimension. GROSS DESCRIPTION Received is one container labeled with the patient name and designated left fallopian tube and ovary. The specimen consists of fallopian tube and adjacentcyst may represent paratubal cyst or cystic ovary. The fallopian tube measures 3 cm in length and 0.5 cm in diameter. The fimbrial end is identified. The adjacent cyst measures 3 x 2 x 1.5 cm. The cyst is filled with clear fluid. Noobvious ovarian tissue is noted. The entire specimen is submitted in four cassettes. / DONNY:nneka 10/23/15 TC:5 CPT:21292 HEADER OPERATION: Oophorectomy, laparoscopic PRE-OP DIAGNOSIS: Postmenopausal bleeding, left ovarian cyst TISSUE SUBMITTED: Left fallopian tube and ovary MICROSCOPIC DESCRIPTION Slides are reviewed. MICROSCOPIC DIAGNOSIS Left fallopian tube and ovary: Fallopian tube - No pathologic diagnosis. Ovarian tissue - No pathologic diagnosis. See comment. Paratubal cyst (3 cm in greatest dimension). DONNY:nneka 10/24/15 Signed Irving Jain 10/24/15 [facility] [address] [place], [id number] Type AND ScreenOrdered By: S ystem Lead Clinical Research Coordinator on 10-23-2015 ABO and Rh group Nom (Bld) O POSITIVE Normal [facility] Work Phone: Comment on above: Reason for Type AND Screen/Red Cells: [facility] [address] [place], [address] BLOOD TYPE GEL Positive Normal Comprehens kaila Internal Medicine Work Phone: CBC-Complete Blood Cnt No Di ffOrdered By: Mincing Machine Operator on 10-20-2015 Erythrocyte distribution width (RBC) [Ratio] 12.4 % Normal 11.6-14.6 [facility] Work Phone: Comment on above: [facility] [address] [place], [address] Erythrocyte distribution width Auto Ratio (RBC) 12.4 % Normal 11.6-14.6 [facility] Work Phone: Hematocrit (Bld) [Volume fraction] 41.9 % Normal 37-47 [facility] Work Phone: Comment on above: [facility] [address] [place], [address] Hematocrit Auto Volume Fraction (Bld) 41.9 % Normal 37-47 [facility] Work Phone: Hemoglobin mass conc (Bld) 13.7 g/dL Normal 12.0-15.0 [facility] Work Phone: Comment on above: [facility] [address] [place], [address] MCH (RBC) [Entitic mass] 30.0 pg Normal 27.0-32.0 [facility] Work Phone: Comment on above: [facility] [address] [place], [address] MCH Auto Entitic mass (RBC) 30.0 pg Normal 27.0-32.0 [facility] Work Phone: MCHC (RBC) [Mass/Vol] 32.7 {g/gl} Normal 32-36 [facility] Work Phone: Comment on above: [place] [id number] [place], [address] MCHC Auto mass conc (RBC) 32.7 {g/gl} Normal 32-36 [facility] Work Phone: MCV (RBC) [Entitic vol] 91.7 fL Normal 81-99 [facility] Work Phone: Comment on above: [place] [address] [place], [address] MCV Auto Entitic volume (RBC) 91.7 fL Normal 81-99 [facility] Work Phone: Platelet mean volume (Bld) [Entitic vol] 9.3 fL Normal 6.2-12.0 Comprehensiv e Internal Medicine Work Phone: Comment on above: [place] [address] [place], [address] Platelet mean volume Auto Entitic volume (Bld) 9.3 fL Normal 6.2-12.0 [facility] Work Phone: Platelets (Bld) [#/Vol] 188 10*3/uL Normal 150-450 [facility] Work Phone: Comment on above: [place] [address] [place], [address] Platelets Auto #/vol (Bld) 188 10*3/uL Normal 150-450 [facility] Work Phone: RBC (Bld) [#/Vol] 4.57 {M/mm3} Normal 4.2-5.4 [facility] Internal Medicine Work Phone: Comment on above: [facility] [address] [place], [address] RBC Auto #/vol (Bld) 4.57 {M/mm3} Normal 4.2-5.4 [facility] Internal Medicine Work Phone: RDW SD 41.5 fL Normal 35.1-43.9 [facility] Work Phone: WBC (Bld) [#/Vol] 5.9 10*3/uL Normal 4.4-11.0 [facility] Internal Medicine Work Phone: Comment on above: [facility] [address] [place], [address] WBC Auto #/vol (Bld) 5.9 10*3/uL Normal 4.4-11.0 [facility] Internal Medicine Work Phone: CBC-Complete Blood Cnt No Diff 41.5 fL Normal 35.1-43.9 [facility] Work Phone: Comment on above: [facility] [address] [place], [address] Partial Thromboplast TimeOrd ered By: Mincing Machine Operator on 10-20-2015 aPTT Coag (PPP) [Time] 29.7 s Normal 24.1-36.2 [facility] Internal Medicine Work Phone: Comment on above: [facility] [address] [place], [address] aPTT Coag time (Bld) 29.7 s Normal 24.1-36.2 [facility] Internal Medicine Work Phone: Prothrombin Time w/INROrdere d By: Mincing Machine Operator on 10-20-2015 INR Coag RelTime (PPP) 1.1 {INR} Normal [facility] Work Phone: Comment on above: [facility] [address] [place], [place], [phone] Prothrombin time (PT) Coag time (PPP) 13.7 s Normal 11.7-14.9 Comprehensi ve Internal Medicine Work Phone: Comment on above: [facility] [address] [place], [place], [phone] CBC W/Diff, AutomatedOrdered By: Mincing Machine Operator on 10-06-2015 Absolute Lymph 1.71 {X10_3/ul} Normal 0.83-4.51 Compr ehensive Internal Medicine Work Phone: Absolute Neut 3.8 {X10_3/uL} Normal 2.0-7.7 Compreh ensive Internal Medicine Work Phone: Comment on above: [facility] [address] [place], [address] Basophils/100 WBC (Bld) 0.3 % Normal 0-1 [facility] Work Phone: Comment on above: [facility] [address] [place], [address] Basophils/100 WBC Auto (Bld) 0.3 % Normal 0-1 [facility] Work Phone: Eosinophils/100 WBC (Bld) 0.8 % Normal 0-5 [facility] Work Phone: Comment on above: [facility] [address] [place], [address] Eosinophils/100 WBC Auto (Bld) 0.8 % Normal 0-5 [facility] Work Phone: Erythrocyte distribution width (RBC) [Ratio] 12.4 % Normal 11.6-14.6 [facility] Work Phone: Comment on above: [facility] [address] [place], [address] Erythrocyte distribution width Auto Ratio (RBC) 12.4 % Normal 11.6-14.6 [facility] Work Phone: Hematocrit (Bld) [Volume fraction] 41.2 % Normal 37-47 [facility] Work Phone: Comment on above: [place] [address] [place], [address] Hematocrit Auto Volume Fraction (Bld) 41.2 % Normal 37-47 [facility] Work Phone: Hemoglobin mass conc (Bld) 13.7 g/dL Normal 12.0-15.0 [facility] Work Phone: Comment on above: [place] [address] [place], [address] IM GRAN % 0.200 % Normal 0.0-0.9 [facility] Work Phone: Comment on above: IG% - Immature Granu locytes (promyelocytes, myelocytes andmetamyelocytes) > 1% indicates that a LEFT SHIFT is Present. [place] [address] [place], [address] Lymphocytes (Bld) [#/Vol] 1.71 {X10_3/ul} Normal 0.83-4.51 [facility] Work Phone: Comment on above: [place] [address] [place], [address] Lymphocytes/100 WBC (Bld) 27.2 % Normal 19-41 [facility] Work Phone: Comment on above: [place] [address] [place], [address] Lymphocytes/100 WBC Auto (Bld) 27.2 % Normal 19-41 [facility] Work Phone: MCH (RBC) [Entitic mass] 30.3 pg Normal 27.0-32.0 [facility] Work Phone: Comment on above: [place] [address] [place], [address] MCH Auto Entitic mass (RBC) 30.3 pg Normal 27.0-32.0 [facility] Work Phone: MCHC (RBC) [Mass/Vol] 33.3 {g/gl} Normal 32-36 [facility] Work Phone: Comment on above: [facility] [address] [place], [address] MCHC Auto mass conc (RBC) 33.3 {g/gl} Normal 32-36 [facility] Work Phone: MCV (RBC) [Entitic vol] 91.2 fL Normal 81-99 [facility] Work Phone: Comment on above: [facility] [address] [place], [address] MCV Auto Entitic volume (RBC) 91.2 fL Normal 81-99 [facility] Work Phone: Monocytes/100 WBC Auto (Bld) 10.5 % Abnormal 0-10 [facility] Work Phone: Comment on above: [facility] [address] [place], [address] Neutrophils/100 WBC (Bld) 61.0 % Normal 47-70 [facility] Work Phone: Comment on above: [facility] [address] [place], [address] Neutrophils/100 WBC Auto (Bld) 61.0 % Normal 47-70 [facility] Work Phone: Platelet mean volume (Bld) [Entitic vol] 9.8 fL Normal 6.2-12.0 Comprehensiv e Internal Medicine Work Phone: Comment on above: [facility] [address] [place], [address] Platelet mean volume Auto Entitic volume (Bld) 9.8 fL Normal 6.2-12.0 [facility] Work Phone: Platelets (Bld) [#/Vol] 196 10*3/uL Normal 150-450 [facility] Work Phone: Comment on above: [facility] [address] [place], [place], [phone] Platelets Auto #/vol (Bld) 196 10*3/uL Normal 150-450 [facility] Work Phone: RBC (Bld) [#/Vol] 4.52 {M/mm3} Normal 4.2-5.4 Compr ensive Internal Medicine Work Phone: Comment on above: [facility] [address] [place], [address] RBC Auto #/vol (Bld) 4.52 {M/mm3} Normal 4.2-5.4 [facility] Work Phone: RDW SD 40.4 fL Normal 35.1-43.9 [facility] Work Phone: Comment on above: [facility] [address] [place], [address] WBC (Bld) [#/Vol] 6.3 10*3/uL Normal 4.4-11.0 [facility] Internal Medicine Work Phone: Comment on above: [facility] [address] [place], [address] WBC Auto #/vol (Bld) 6.3 10*3/uL Normal 4.4-11.0 [facility]: Comprehensive Metabolic Prof ilOrdered By: Mincing Machine Operator on 10-06-2015 Comprehensive metabolic 2000 panel 17.4 {RATIO} Normal 10-20 Comprehensi ve Internal Medicine Work Phone: Comment on above: [facility] [address] [place], [phone] Comprehensive metabolic 2000 panel 30.0 mmol/L Normal 21.0-32.0 Comprehensi ve Internal Medicine Work Phone: Comment on above: [facility] [address] [place], [place], [phone] Comprehensive metabolic 2000 panel 25 U/L Normal 12-78 Comprehensi ve Internal Medicine Work Phone: Comment on above: [facility] [address] [place], [place], [phone] Comprehensive metabolic 2000 panel 96 U/L Normal 50-136 Comprehensi ve Internal Medicine Work Phone: Comment on above: [facility] [address] [place], [place], [phone] Comprehensive metabolic 2000 panel 19 U/L Normal 15-37 Comprehensi ve Internal Medicine Work Phone: Comment on above: [facility] [address] [place], [place], [phone] Comprehensive metabolic 2000 panel 9.2 mg/dL Normal 8.5-10.1 Comprehensi ve Internal Medicine Work Phone: Comment on above: [facility] [address] [place], [place], [phone] Comprehensive metabolic 2000 panel 1.1 {RATIO} Normal 0.9-2.4 Comprehensi ve Internal Medicine Work Phone: Comment on above: [facility] [address] [place], [place], [phone] Comprehensive metabolic 2000 panel 3.6 g/dL Abnormal 2.3-3.5 Comprehensi ve Internal Medicine Work Phone: Comment on above: [facility] [address] [place], [address] Comprehensive metabolic 2000 panel 4.1 g/dL Normal 3.4-5.0 Comprehensi ve Internal Medicine Work Phone: Comment on above: [facility] [address] [place], [address] Comprehensive metabolic 2000 panel 7.7 g/dL Normal 6.4-8.2 Comprehensi ve Internal Medicine Work Phone: Comment on above: [facility] [address] [place], [place], [phone] Comprehensive metabolic 2000 panel 139 mmol/L Normal 136-145 Comprehensi ve Internal Medicine Work Phone: Comment on above: [facility] [address] [place], [place], [phone] Comprehensive metabolic 2000 panel 103 mL/min Normal Comprehensi ve Internal Medicine Work Phone: Comment on above: GFR Calc [facility] [address] [place], [place], [phone] Comprehensive metabolic 2000 panel 85 mL/min Normal Comprehensi ve Internal Medicine Work Phone: Comment on above: Non- GFR Calc [facility] [address] [place], [place], [address] Comprehensive metabolic 2000 panel 0.75 mg/dL Normal 0.55-1.20 Comprehensi ve Internal Medicine Work Phone: Comment on above: The validity of the calculated GFR AND GFRAA in patients over70 years has not been determined. Clinical correlation isessential. [facility] [address] [place], [place], [phone] Comprehensive metabolic 2000 panel 13 mg/dL Normal 7-18 Comprehensi ve Internal Medicine Work Phone: Comment on above: [facility] [address] [place], [place], [phone] Comprehensive metabolic 2000 panel 90 mg/dL Normal 70-110 Comprehensi ve Internal Medicine Work Phone: Comment on above: [facility] [address] [place], [place], [phone] Comprehensive metabolic 2000 panel 0.40 mg/dL Normal 0.20-1.00 Comprehensi ve Internal Medicine Work Phone: Comment on above: [facility] [address] [place], [place], [phone] Comprehensive metabolic 2000 panel 7 1 Normal 5-15 Comprehensi ve Internal Medicine Work Phone: Comment on above: [facility] [address] [place], [place], [phone] Comprehensive metabolic 2000 panel 4.4 mmol/L Normal 3.5-5.1 Comprehensi ve Internal Medicine Work Phone: Comment on above: [facility] [address] [place], [place], [phone] Comprehensive metabolic 2000 panel 102 mmol/L Normal 98-107 Comprehensi ve Internal Medicine Work Phone: Comment on above: [facility] [address] [place], [place], [phone] Prothrombin Time w/INROrdere d By: Mincing Machine Operator on 10-06-2015 INR Coag RelTime (PPP) 1.1 {INR} Normal [facility] Work Phone: Comment on above: [facility] [address] [place], [place], [phone] Prothrombin time (PT) Coag time (PPP) 13.6 s Normal 11.7-14.9 Comprehensi ve Internal Medicine Work Phone: Comment on above: [facility] [address] [place], [place], [phone] Urinalysis, Office ([id number])Or dered By: Clarisse Conde on 10-06-2015 Bilirubin Ql (U) Negative Normal Comprehe nsive Internal Medicine Work Phone: Glucose Test strip mass conc (U) Negative Normal [facility] Work Phone: Hemoglobin Test strip Ql (U) Negative Normal [facility] Work Phone: Ketones Ql (U) Negative Normal Comprehens kaila Internal Medicine Work Phone: Leukocyte esterase Test strip Ql (U) Trace Normal [facility] Work Phone: Nitrite Test strip Ql (U) Negative Normal [facility] Work Phone: pH Test strip (U) 7.5 [pH] Normal Compreh ensive Internal Medicine Work Phone: Protein Test strip Ql (U) Negative Normal [facility] Work Phone: Specific gravity Relative Density (U) 1.020 1 Normal Comprehensi ve Internal Medicine Work Phone: Urobilinogen mass/time (24H U) Normal Normal [facility] Work Phone: Urinalysis, Office ([phone])on 10-06-2015 Bilirubin Ql (U) Negative Normal Comprehe nsive Internal Medicine; [facility] Work Phone: Glucose Test strip (U) [Mass/Vol] Negative Normal [facility]; [facility] Work Phone: Hemoglobin Ql (U) Negative Normal Compreh ensive Internal Medicine Work Phone: Hemoglobin Ql (U) Negative Normal Compreh ensive Internal Medicine; [facility] Work Phone: Ketones Ql (U) Negative Normal Comprehens kaila Internal Medicine; [facility] Work Phone: Nitrite Ql (U) Negative Normal Comprehens kaila Internal Medicine Work Phone: Nitrite Ql (U) Negative Normal Comprehens kaila Internal Medicine; [facility] Work Phone: pH (U) 7.5 [pH] Normal [facility] Work Phone: Protein Ql (U) Negative Normal Comprehens kaila Internal Medicine Work Phone: Protein Ql (U) Negative Normal Comprehens kaila Internal Medicine; [facility] Work Phone: CERVICALOrdered By: Tali nunes on 08-28-2015 CERVICAL See Note Normal [facility] Work Phone: Comment on above: Patient: DICK [place]Z ESTELA Augustin : 1960 (55/F) Acct Num: [id number] Phys: Nurys [place] MD Unit Num: [id number] [place] [facility] [place]: Received: 08/29/15 - 0754 Spec Type: CERV TISSUES TISSUES: GROSS DESCRIPTION A - Received is one container labeled with the patient name and designated endocervical curettings. The specimen consists of multiple fragments of hemorrhagic mucoid tissue that in aggregate measure 2.5 x 2.5 x 0.2 cm. The specimen is totally submitted in one cassette. B - Received is one container labeled with the patient name and designated endometrial curettings. The specimen consists of The specimen consists of multiple fragments of hemorrhagic soft tissue that in aggregate measure 3 x 2.5 x 0.1 cm. The entire specimen is submitted in one cassette. / DONNY:nneka 08/29/15 TC:5 CPT:40053 x2 HEADER OPERATION: Hysteroscopy, diagnostic, D AND C PRE-OP DIAGNOSIS: Post menopausal bleeding and cervical stenosis TISSUE SUBMITTED: A. Endocervical curettings, B. Endometrial curettings MICROSCOPIC DESCRIPTION Slides are reviewed. MICROSCOPIC DIAGNOSIS A. Endocervical curettings: Fragments of benign endocervical epithelium, blood and mucous. Scant strips of benign endometrial epithelium. B. Endometrial curettings: Fragments of superficial benign endometrial tissue. Fragments of benign ecto- and endocervical epithelium. DONNY:nneka 08/30/15 Signed Irving Parmar 08/30/15 [facility] [address] [place] [address], [address] URINE PHANI CULTURE-IDENTIFICA [place] ([id number])Ordered By: Mincing Machine Operator on 06-07-2015 Bacteria identified Cx Nom (U) Escherichia coli Abnormal [facility] Work Phone: Comment on above: 400 Colonies/mL PATIENT NOT FASTINGP ERFORMED BY: ALICIA [facility] Edowdq6258 [facility] [id number] Information: [id number] Bacteria identified Cx Nom (U) Final report Abnormal [facility] Work Phone: Comment on above: PATIENT NOT FASTINGP ERFORMED BY: CB [facility] [address] RoadDublin [place] [id number] Information: [id number] Other Antibiotic nahomy LOCKETT Normal Comprehensive [facility] Work Phone: Comment on above: S = Susceptible; I = Intermediate; R = Resistant P = Positive; N = Negative MICS are expressed in micrograms per mL Antibiotic RSLT#1 RSLT#2 RSLT#3 RSLT#4Amoxicillin/Clavulanic Acid IAmpicillin RCefazolin RCefepime SCeftriaxone SCefuroxime SCephalothin RCiprofloxacin RErtapenem SGentamicin SImipenem SLevofloxacin RNitrofurantoin SPiperacillin RTetracycline STobramycin STrimethoprim/Sulfa S PATIENT NOT FASTINGP ERFORMED BY: [facility] [address] RoadDublin [place] [id number] Information: [id number] Urinalysis, Office ([id number])Or dered By: Clarisse Conde on 06-07-2015 Bilirubin Ql (U) Negative Normal Comprehe nsive Internal Medicine Work Phone: Glucose Test strip mass conc (U) Negative Normal [facility] Work Phone: Hemoglobin Test strip Ql (U) Negative Normal [facility] Work Phone: Ketones Ql (U) Negative Normal Comprehens kaila Internal Medicine Work Phone: Leukocyte esterase Test strip Ql (U) Negative Normal [facility] Work Phone: Nitrite Test strip Ql (U) Negative Normal [facility] Work Phone: pH Test strip (U) 7.5 [pH] Normal Compreh ensive [facility] Work Phone: Protein Test strip Ql (U) Negative Normal [facility] Work Phone: Specific gravity Relative Density (U) 1.015 1 Normal Comprehensi ve [facility] Work Phone: Urobilinogen mass/time (24H U) Normal Normal [facility] Work Phone: Urinalysis, Office ([id number])on 06-07-2015 Bilirubin Ql (U) Negative Normal Comprehe nsive [facility]; [facility] Work Phone: Glucose Test strip (U) [Mass/Vol] Negative Normal [facility]; [facility] Work Phone: Hemoglobin Ql (U) Negative Normal Compreh ensive [facility] Work Phone: Hemoglobin Ql (U) Negative Normal Compreh ensive [facility]; [facility] Work Phone: Ketones Ql (U) Negative Normal Comprehens [facility]; [facility] Work Phone: Leukocyte esterase Test strip Ql (U) Negative Normal [facility]; [facility] Work Phone: Nitrite Ql (U) Negative Normal Comprehens [facility] Work Phone: Nitrite Ql (U) Negative Normal Comprehens [facility]; [facility] Work Phone: pH (U) 7.5 [pH] Normal [facility] Work Phone: Protein Ql (U) Negative Normal Comprehens [facility] Work Phone: Protein Ql (U) Negative Normal Comprehens [facility]; [facility] Work Phone: URINE PHANI CULTURE-ANGELY COL C OUNT ([id number])Ordered By: Mincing Machine Operator on 05-15-2015 Bacteria identified Cx Nom (U) Final report Abnormal [facility] Work Phone: Comment on above: PATIENT NOT FASTINGP ERFORMED BY: [facility] for RehabilitationWxccyp7001 [facility] [id number] Information: SRC:UR [id number] Bacteria identified Cx Nom (U) ECV Abnormal [facility] Work Phone: Comment on above: Escherichia coli, id entified by an automated biochemical system.400 Colonies/mLBeta hemolytic Streptococcus, group B10,000-25,000 colony forming units per mLPenicillin and ampicillin are drugs of choice for treatment ofbeta-hemolytic streptococcal infections. Susceptibility testing ofpenicillins and other beta-lactam agents approved by the FDA fortreatment of beta-hemolytic streptococcal infections need not beperformed routinely because nonsusceptible isolates are extremelyrare in any beta-hemolytic streptococcus and have not been reportedfor Streptococcus pyogenes (group A). (CLSI 2011) S = Susceptible; I = Intermediate; R = Resistant P = Positive; N = Negative MICS are expressed in micrograms per mL Antibiotic RSLT#1 RSLT#2 RSLT#3 RSLT#4Amoxicillin/Clavulanic Acid SAmpicillin SCefepime SCeftriaxone SCefuroxime SCephalothin SCiprofloxacin SErtapenem SGentamicin SImipenem SLevofloxacin SNitrofurantoin SPiperacillin STetracycline STobramycin STrimethoprim/Sulfa S PATIENT NOT FASTINGP ERFORMED BY: ALICIA [facility] [id number] Osborn RoadDublKosair Children's Hospital [id number] Information: SRC:[facility] [id number] Urinalysis, Office ([id number])Or dered By: Susana Vázquez on 05-15-2015 Bilirubin Ql (U) Negative Normal Comprehe nsive [facility] Work Phone: Bilirubin Ql (U) Negative Normal Comprehe nsive [facility]; [facility] Work Phone: Glucose Test strip (U) [Mass/Vol] Negative Normal [facility]; [facility] Work Phone: Glucose Test strip mass conc (U) Negative Normal [facility] Work Phone: Hemoglobin Ql (U) Negative Normal Compreh ensive [facility] Work Phone: Hemoglobin Ql (U) Negative Normal Compreh ens[facility]; [facility] Work Phone: Hemoglobin Test strip Ql (U) Negative Normal [facility] Work Phone: Ketones Ql (U) Negative Normal Comprehens [facility] Work Phone: Ketones Ql (U) Negative Normal Comprehens [facility]; [facility] Work Phone: Leukocyte esterase Test strip Ql (U) Trace Normal [facility] Work Phone: Nitrite Ql (U) Negative Normal Comprehens [facility] Work Phone: Nitrite Ql (U) Negative Normal Comprehens [facility]; [facility] Work Phone: Nitrite Test strip Ql (U) Negative Normal [facility] Work Phone: pH (U) 7 [pH] Normal [facility] Work Phone: pH Test strip (U) 7 [pH] Normal Compreh ensive [facility] Work Phone: Protein Ql (U) Negative Normal Comprehens [facility] Work Phone: Protein Ql (U) Negative Normal Comprehens [facility]; [facility] Work Phone: Protein Test strip Ql (U) Negative Normal [facility] Work Phone: Specific gravity Relative Density (U) 1.015 1 Normal Comprehensi ve [facility] Work Phone: Urobilinogen mass/time (24H U) Normal Normal [facility] Work Phone: CBC W/Diff, AutomatedOrdered By: Mincing Machine Operator on 09-16-2014 Absolute Lymph 1.68 {X10_3/ul} Normal 0.83-4.51 Compr ehensive [facility] Medicine Work Phone: Absolute Neut 2.9 {X10_3/uL} Normal 2.0-7.7 Compreh ensive [facility] Work Phone: Comment on above: Test performed at:[facility] [address] [place] [address] Basophils/100 WBC (Bld) 0.2 % Normal 0-1 [facility] Work Phone: Comment on above: Test performed at:[facility] [address] [place] [address] Basophils/100 WBC Auto (Bld) 0.2 % Normal 0-1 [facility] Work Phone: Eosinophils/100 WBC (Bld) 1.8 % Normal 0-5 [facility] Work Phone: Comment on above: Test performed at:[facility] [address] [place] [address] Eosinophils/100 WBC Auto (Bld) 1.8 % Normal 0-5 [facility] Work Phone: Erythrocyte distribution width (RBC) [Ratio] 12.4 % Normal 11.6-14.6 [facility] Work Phone: Comment on above: Test performed at:[facility] [address] [place] [address] Erythrocyte distribution width Auto Ratio (RBC) 12.4 % Normal 11.6-14.6 [facility] Work Phone: Hematocrit (Bld) [Volume fraction] 41.1 % Normal 37-47 [facility] Work Phone: Comment on above: Test performed at:[facility] [address] [place] [address] Hematocrit Auto Volume Fraction (Bld) 41.1 % Normal 37-47 [facility] Work Phone: Hemoglobin mass conc (Bld) 13.3 g/dL Normal 12.0-15.0 [facility] Work Phone: Comment on above: Test performed at:[facility] [address] [place] [address] IM GRAN % 0.200 % Normal 0.0-0.9 [facility] Work Phone: Comment on above: IG% - Immature Granu locytes (promyelocytes, myelocytes andmetamyelocytes) > 1% indicates that a LEFT SHIFT is Present. Test performed at:[facility] [address] [place] [address] Lymphocytes (Bld) [#/Vol] 1.68 {X10_3/ul} Normal 0.83-4.51 [facility] Work Phone: Comment on above: Test performed at:[facility] [address] [place] [address] Lymphocytes/100 WBC (Bld) 32.7 % Normal 19-41 [facility] Work Phone: Comment on above: Test performed at:[facility] [address] [place] [address] Lymphocytes/100 WBC Auto (Bld) 32.7 % Normal 19-41 [facility] Work Phone: MCH (RBC) [Entitic mass] 29.8 pg Normal 27.0-32.0 [facility] Work Phone: Comment on above: Test performed at:[facility] [address] [place] [address] MCH Auto Entitic mass (RBC) 29.8 pg Normal 27.0-32.0 [facility] Work Phone: MCHC (RBC) [Mass/Vol] 32.4 {g/gl} Normal 32-36 [facility] Work Phone: Comment on above: Test performed at:[facility] [address] [place] [address] MCHC Auto mass conc (RBC) 32.4 {g/gl} Normal 32-36 [facility] Work Phone: MCV (RBC) [Entitic vol] 91.9 fL Normal 81-99 [facility] Work Phone: Comment on above: Test performed at:[facility] [address] [place] [address] MCV Auto Entitic volume (RBC) 91.9 fL Normal 81-99 [facility] Work Phone: Monocytes/100 WBC Auto (Bld) 8.9 % Normal 0-10 [facility] Work Phone: Comment on above: Test performed at:[facility] [address] [place] [address] Neutrophils/100 WBC (Bld) 56.2 % Normal 47-70 [facility] Work Phone: Comment on above: Test performed at:[facility] [address] [place] [address] Neutrophils/100 WBC Auto (Bld) 56.2 % Normal 47-70 [facility] Work Phone: Platelet mean volume (Bld) [Entitic vol] 9.4 fL Normal 6.2-12.0 Comprehensiv e [facility] Work Phone: Comment on above: Test performed at:[facility] [address] [place] [address] Platelet mean volume Auto Entitic volume (Bld) 9.4 fL Normal 6.2-12.0 [facility] Work Phone: Platelets (Bld) [#/Vol] 180 10*3/uL Normal 150-450 [facility] Work Phone: Comment on above: Test performed at:[facility] [address] [place] [address] Platelets Auto #/vol (Bld) 180 10*3/uL Normal 150-450 [facility] Work Phone: RBC (Bld) [#/Vol] 4.47 {M/mm3} Normal 4.2-5.4 Compr [facility] Internal Medicine Work Phone: Comment on above: Test performed at:[facility] [address] [place] [address] RBC Auto #/vol (Bld) 4.47 {M/mm3} Normal 4.2-5.4 Co [facility] Internal Medicine Work Phone: RDW SD 41.7 fL Normal 35.1-43.9 [facility] Work Phone: Comment on above: Test performed at:[facility] [address] [place] [address] WBC (Bld) [#/Vol] 5.1 10*3/uL Normal 4.4-11.0 Compre hensive [facility] Work Phone: Comment on above: Test performed at:[facility] [address] [place], [place] [id number] WBC Auto #/vol (Bld) 5.1 10*3/uL Normal 4.4-11.0 Com prehensive [facility] Work Phone: Comprehensive Metabolic Prof ilOrdered By: Mincing Machine Operator on 09-16-2014 Comprehensive metabolic 2000 panel 104 mmol/L Normal 98-107 Comprehensi ve [facility] Work Phone: Comment on above: Test performed at:[facility] [address] [place] [address] Comprehensive metabolic 2000 panel 30.0 mmol/L Normal 21.0-32.0 Comprehensi ve [facility] Work Phone: Comment on above: Test performed at:[facility] [address] [place], [place] [id number] Comprehensive [facility] 2000 panel 7.3 g/dL Normal 6.4-8.2 Comprehensi ve [facility] Work Phone: Comment on above: Test performed at:[facility] [address] [place] [address] Comprehensive metabolic 2000 panel 4.0 mmol/L Normal 3.5-5.1 Comprehensi ve [facility] Work Phone: Comment on above: Test performed at:[facility] [address] [place] [address] Comprehensive metabolic 2000 panel 139 mmol/L Normal 136-145 Comprehensi ve [facility] Work Phone: Comment on above: Test performed at:[facility] [address] [place] [address] Comprehensive metabolic 2000 panel 0.40 mg/dL Normal 0.20-1.00 Comprehensi ve [facility] Work Phone: Comment on above: Test performed at:[facility] [address] [place] [address] Comprehensive metabolic 2000 panel 23 U/L Normal 12-78 Comprehensi ve [facility] Work Phone: Comment on above: Test performed at:[facility] [address] [place] [address] Comprehensive metabolic 2000 panel 91 U/L Normal 50-136 Comprehensi ve [facility] Work Phone: Comment on above: Test performed at:[facility] [address] [place] [address] Comprehensive metabolic 2000 panel 20 U/L Normal 15-37 Comprehensi ve [facility] Work Phone: Comment on above: Test performed at:[facility] [address] [place] [address] Comprehensive metabolic 2000 panel 89 mg/dL Normal 70-110 Comprehensi ve [facility] Work Phone: Comment on above: Test performed at:[facility] [address] [place] [address] Comprehensive metabolic 2000 panel 15 mg/dL Normal 7-18 Comprehensi ve [facility] Work Phone: Comment on above: Test performed at:[facility] [address] [place] [address] Comprehensive metabolic 2000 panel 18.8 {RATIO} Normal 10-20 Comprehensi ve [facility] Work Phone: Comment on above: Test performed at:[facility] [address] [place] [address] Comprehensive metabolic 2000 panel 0.8 mg/dL Normal 0.6-1.0 Comprehensi ve [facility] Work Phone: Comment on above: Test performed at:[facility] [address] [place] [address] Comprehensive metabolic 2000 panel 79 mL/min Normal Comprehensi ve [facility] Work Phone: Comment on above: Test performed at:[facility] [address] [place] [address] Comprehensive metabolic 2000 panel 96 mL/min Normal Comprehensi ve [facility] Work Phone: Comment on above: Test performed at:[facility] [address] [place], [place] [id number] Comprehensive metabolic 2000 panel 9.3 mg/dL Normal 8.5-10.1 Comprehensi ve [facility] Work Phone: Comment on above: Test performed at:[facility] [address] [place] [address] Comprehensive metabolic 2000 panel 4.1 g/dL Normal 3.4-5.0 Comprehensi ve [facility] Work Phone: Comment on above: Test performed at:[facility] [address] [place] [address] Comprehensive metabolic 2000 panel 1.3 {RATIO} Normal 0.9-2.4 Comprehensi ve [facility] Work Phone: Comment on above: Test performed at:[facility] [address] [place] [address] Comprehensive metabolic 2000 panel 5 1 Normal 5-15 Comprehensi ve [facility] Medicine Work Phone: Comment on above: Test performed at:[facility] [address] [place] [address] Comprehensive metabolic 2000 panel 3.2 g/dL Normal 2.7-4.2 Comprehensi ve [facility] Work Phone: Comment on above: Test performed at:[facility] [address] [place], [place] [id number] Lipid ProfileOrdered By: Alyssa tem Lead Clinical Research Coordinator on 09-16-2014 Cholesterol in HDL mass conc 53 mg/dL Normal [facility] Work Phone: Comment on above: Reference Range HDL <40 mg/dL Low HDL Cholesterol HDL >or= 60 mg/dL High HDL Cholesterol Test performed at:[facility] [address] [place] [address] Cholesterol in LDL [Mass/Vol] 112 mg/dL Normal 0-130 [facility] Work Phone: Comment on above: Test performed at:[facility] [address] [place] [address] Cholesterol in LDL mass conc 112 mg/dL Normal 0-130 [facility] Work Phone: Cholesterol in VLDL mass conc 29 mg/dL Normal 5-40 [facility] Work Phone: Cholesterol mass conc 194 mg/dL Normal [facility] Work Phone: Comment on above: <200 mg/dL Desirable 200-240 mg/dL Borderline >240 mg/dL High Risk Test performed at:[facility] [address] [place] [address] Triglyceride mass conc 145 mg/dL Normal 0-199 [facility] Work Phone: Comment on above: Serum Triglycerides Reference Interval Normal <150 mg/dL Borderline high 150 - 199 mg/dL High 200 - 499 mg/dL Very High > or = 500 mg/dL Test performed at:[facility] [address] [place] [address] Lipid Profile 29 mg/dL Normal 5-40 Comprehensi Internal Medicine Work Phone: Comment on above: Test performed at:[facility] [address] [place] [address] Thyroid Stim Hormone (TSH)Or dered By: Mincing Machine Operator on 09-16-2014 Thyrotropin Qn 2.45 {uIU/mL} Normal 0.358-3.74 Compreh ensive Internal Medicine Work Phone: Comment on above: Test performed at:[facility] [address] [place] [id number] Vitamin D,25 HydroxyOrdered By: Mincing Machine Operator on 09-16-2014 Vitamin D 25-OH 46.8 ng/mL Normal Comprehen sive [facility] Medicine Work Phone: Comment on above: Vitamin D 25(OH) Sta tus Range Deficiency <20 ng/mL (50nmol/L) Insuffciency 20 - 30 ng/mL (50 - 75 nmol/L) Sufficiency 30 - 100 ng/mL (75 - 250 nmol/L) Toxicity >100 ng/mL (>250 nmol/L) Vitamin D,25 Hydroxy 46.8 ng/mL Normal Comp rehensive [facility] Medicine Work Phone: Comment on above: Vitamin D 25(OH) Sta tus Range Deficiency <20 ng/mL (50nmol/L) Insuffciency 20 - 30 ng/mL (50 - 75 nmol/L) Sufficiency 30 - 100 ng/mL (75 - 250 nmol/L) Toxicity >100 ng/mL (>250 nmol/L) Test performed at:[facility] [address] [place], [place] [address] PHANI CULTURE-OTHER ([id number])Ord ered By: Mincing Machine Operator on 07-27-2014 Bacteria identified Respiratory culture Nom (Unsp spec) RRF Normal [facility] Work Phone: Comment on above: Routine respiratory janis PATIENT NOT FASTINGP ERFORMED BY: ALICIA [facility] [id number] [facility] [id number] Information: SRC:THRT [id number] Bacteria identified Respiratory culture Nom (Unsp spec) Final report Normal [facility] Work Phone: Comment on above: PATIENT NOT FASTINGP ERFORMED BY: [employer] [facility] [id number] [facility] [id number] Information: SRC:THRT [id number] Rapid Strep Test, Office ([phone])Ordered By: Susana Vázquez on 07-27-2014 S. pyogenes Ag EIA Ql (Throat) Negative Normal [facility]; [facility] Work Phone: S. pyogenes Ag IA Ql (Unsp spec) Negative Normal [facility] Work Phone: CBCDOrdered By: System Manag er on 08-05-2013 Erythrocyte distribution width (RBC) [Ratio] 12.6 % Normal 11.6-14.6 [facility] Work Phone: Erythrocyte distribution width Auto Ratio (RBC) 12.6 % Normal 11.6-14.6 [facility] Work Phone: Hematocrit (Bld) [Volume fraction] 42.0 % Normal 37-47 [facility] Work Phone: Hematocrit Auto Volume Fraction (Bld) 42.0 % Normal 37-47 [facility] Work Phone: Hemoglobin mass conc (Bld) 14.1 g/dL Normal 12.0-15.0 [facility] Work Phone: MCH (RBC) [Entitic mass] 30.7 pg Normal 27.0-32.0 [facility] Work Phone: MCH Auto Entitic mass (RBC) 30.7 pg Normal 27.0-32.0 [facility] Work Phone: MCHC (RBC) [Mass/Vol] 33.6 {g/gl} Normal 32-36 [facility] Work Phone: MCHC Auto mass conc (RBC) 33.6 {g/gl} Normal 32-36 [facility] Work Phone: MCV (RBC) [Entitic vol] 91.3 fL Normal 81-99 [facility] Work Phone: MCV Auto Entitic volume (RBC) 91.3 fL Normal 81-99 [facility] Work Phone: Platelet mean volume (Bld) [Entitic vol] 9.2 fL Normal 6.2-12.0 Comprehensiv e Internal Medicine Work Phone: Platelet mean volume Auto Entitic volume (Bld) 9.2 fL Normal 6.2-12.0 [facility] Work Phone: Platelets (Bld) [#/Vol] 205 10*3/uL Normal 150-450 [facility] Work Phone: Platelets Auto #/vol (Bld) 205 10*3/uL Normal 150-450 [facility] Work Phone: RBC (Bld) [#/Vol] 4.60 {M/mm3} Normal 4.2-5.4 Compr ehensive Internal Medicine Work Phone: RBC Auto #/vol (Bld) 4.60 {M/mm3} Normal 4.2-5.4 Co mprehensive [facility] Work Phone: WBC (Bld) [#/Vol] 5.4 10*3/uL Normal 4.4-11.0 Compre hensive [facility] Medicine Work Phone: WBC Auto #/vol (Bld) 5.4 10*3/uL Normal 4.4-11.0 Com prehensive Internal Medicine Work Phone: CBCD 9.7 % Normal 0-10 [facility] Work Phone: CBCD 3.3 % Normal 0-5 [facility] Work Phone: CBCD 0.6 % Normal 0-1 [facility] Work Phone: CBCD 0.200 % Normal 0.0-0.9 [facility] Work Phone: Comment on above: IG% - Immature Granu locytes (promyelocytes, myelocytes andmetamyelocytes) > 1% indicates that a LEFT SHIFT is Present. CBCD 2.9 {X10_3/uL} Normal 2.0-7.7 Comprehens [facility] Work Phone: CBCD 31.8 % Normal 19-41 [facility] Work Phone: CBCD 54.4 % Normal 47-70 [facility] Work Phone: CBCD 41.9 fL Normal 35.1-43.9 [facility] Work Phone: CMPOrdered By: System Manage r on 08-05-2013 Albumin mass conc 3.9 g/dL Normal 3.4-5.0 Compreh ensive Internal Medicine Work Phone: Albumin/Globulin mass ratio 1.2 {RATIO} Normal 0.9-2.4 [facility] Work Phone: ALP enzyme act/vol 85 U/L Normal 50-136 Compre hensive Internal Medicine Work Phone: ALT enzyme act/vol 24 U/L Normal 12-78 [facility] Work Phone: AST enzyme act/vol 20 U/L Normal 15-37 [facility]pre [facility] Work Phone: Bilirubin mass conc 0.30 mg/dL Normal 0.00-1.00 Compr ehensive Internal Medicine Work Phone: Calcium mass conc 9.0 mg/dL Normal 8.5-10.1 Compreh ensive Internal Medicine Work Phone: Chloride molar conc 106 mmol/L Normal 98-107 Compr ensive Internal Medicine Work Phone: CO2 molar conc 30.0 mmol/L Normal 21.0-32.0 Comprehen [facility] Work Phone: Creatinine mass conc 0.8 mg/dL Normal 0.6-1.0 [facility] Work Phone: GFR/1.73 sq M predicted among non-blacks MDRD vol rate/area (S/P/Bld) 80 mL/min/{1.73_m2} Normal Comprehe nsive Internal Medicine Work Phone: Globulin Calculated mass conc (S) 3.2 g/dL Normal 2.7-4.2 [facility] Work Phone: Glucose mass conc 95 mg/dL Normal 70-110 Compreh ensive Internal Medicine Work Phone: Potassium molar conc 4.6 mmol/L Normal 3.5-5.1 Comp rehensive Internal Medicine Work Phone: Protein mass conc 7.1 g/dL Normal 6.4-8.2 Compreh ensive Internal Medicine Work Phone: Sodium molar conc 140 mmol/L Normal 136-145 Compreh ensive Internal Medicine Work Phone: Urea nitrogen mass conc 15 mg/dL Normal 7-18 [facility] Work Phone: Urea nitrogen/Creatinine mass ratio 18.8 {RATIO} Normal 10-20 [facility] Work Phone: CMP 97 mL/min Normal [facility] Work Phone: CMP 4 1 Abnormal 5-15 [facility] Work Phone: CMP 7.1 g/dL Normal 6.4-8.2 [facility] Work Phone: CMP 3.2 g/dL Normal 2.7-4.2 [facility] Work Phone: LIPIDOrdered By: System Leta chrissy on 08-05-2013 Cholesterol in HDL mass conc 61 mg/dL Normal [facility] Work Phone: Comment on above: Reference RangeHDL < 40 mg/dL Low HDL CholesterolHDL >or= 60 mg/dL High HDL Cholesterol Cholesterol in LDL mass conc 117 mg/dL Normal 0-130 [facility] Work Phone: Cholesterol mass conc 197 mg/dL Normal [facility] Work Phone: Comment on above: <200 mg/dL Desirable 200-240 mg/dL Borderline>240 mg/dL High Risk Triglyceride mass conc 94 mg/dL Normal 0-199 [facility] Work Phone: Comment on above: Serum Triglycerides Reference IntervalNormal <150 mg/dLBorderline high 150 - 199 mg/dLHigh 200 - 499 mg/dLVery High > or = 500 mg/dL LIPID 19 mg/dL Normal 5-40 [facility] Work Phone: MIACREOrdered By: System Man ager on 08-05-2013 Creatinine mass conc Test not performed Normal [facility] Work Phone: MIACRE 87.7 mg/dL Normal [facility] Work Phone: MIACRE < 5.0 Normal [facility] Work Phone: PHOSOrdered By: System Manag er on 08-05-2013 PHOS 2.3 mg/dL Abnormal 2.5-4.9 [facility] Work Phone: TSHOrdered By: System Manage r on 08-05-2013 Thyrotropin Qn 1.64 {uIU/mL} Normal 0.358-3.74 [facility] Work Phone: UACOrdered By: System Manage r on 08-05-2013 RBC (U) [#/Vol] 0 SEEN Normal 0-5 [facility] Work Phone: Comment on above: How was Urine Obtain ed? CLEAN CATCH WBC (U) [#/Vol] 0-5 SEEN Normal 0-5 [facility] Work Phone: Comment on above: How was Urine Obtain ed? CLEAN CATCH UAC 8.0 1 Normal 5.0 - 8.0 [facility] Work Phone: Comment on above: How was Urine Obtain ed? CLEAN CATCH UAC Negative Normal [facility] Work Phone: Comment on above: How was Urine Obtain ed? CLEAN CATCH UAC Normal Normal [facility] Work Phone: Comment on above: How was Urine Obtain ed? CLEAN CATCH UAC 0-5 SEEN Normal 5-10 [facility] Work Phone: Comment on above: How was Urine Obtain ed? CLEAN CATCH UAC 0 SEEN Normal [facility] Work Phone: Comment on above: How was Urine Obtain ed? CLEAN CATCH UAC 1+ Normal [facility] Work Phone: Comment on above: How was Urine Obtain ed? CLEAN CATCH UAC Yellow Normal [facility] Work Phone: Comment on above: How was Urine Obtain ed? CLEAN CATCH UAC Sl. Cloudy Normal [facility] Work Phone: Comment on above: How was Urine Obtain ed? CLEAN CATCH UAC 1.010 1 Normal 1.002-1.030 [facility] Work Phone: Comment on above: How was Urine Obtain ed? CLEAN CATCH VITDOrdered By: System Manag er on 08-05-2013 VITD 25.1 mg/mL Normal [facility] Work Phone: Comment on above: Vitamin D 25(OH) Sta tus RangeDeficiency <20 ng/mL (50nmol/L)Insuffciency 20 - 30 ng/mL (50 - 75 nmol/L)Sufficiency 30 - 100 ng/mL (75 - 250 nmol/L)Toxicity >100 ng/mL (>250 nmol/L) Pap IG, rfx HPV all pthOrder ed By: Mincing Machine Operator on 06-12-2013 Microscopic observation Other stain Nom (Unsp spec) . Normal [facility] Work Phone: Comment on above: Source.............C ervical;EndocervicalNo. of containers..01 CYTYC Thin Prep VialPERFORMED BY: [employer] [id number] Information: [id number] Pathology report final diagnosis Narrative [facility] Normal [facility] Work Phone: Comment on above: NEGATIVE FOR INTRAEP ITHELIAL LESION AND MALIGNANCY.CELLULAR CHANGES ASSOCIATED WITH ATROPHY ARE PRESENT.Satisfactory for evaluation. Endocervical component may not bedistinguished in cases of atrophy.TXV72.31 ; Routine gynecological examinationLaith Rahman, Ecdis N Navigation Operator (ASCP) Source.............C ervical;EndocervicalNo. of containers..01 CYTYC Thin Prep VialPERFORMED BY: [employer] [id number] Information: [id number] Pap IG, rfx HPV all pth PAPSMR Normal [facility] Work Phone: Comment on above: The Pap smear is a s creening test designed to aid in the detection ofpremalignant and malignant conditions of the uterine cervix. It is not adiagnostic procedure and should not be used as the sole means of detectingcervical cancer. Both false-positive and false-negative reports do occur. .This liquid based ThinPrep(R) pap test was screened with theuse of an image guided system.The HPV DNA reflex criteria were not met with this specimen resulttherefore, no HPV testing was performed. . Source.............C ervical;EndocervicalNo. of containers..01 CYTYC Thin Prep VialPERFORMED BY: WB [facility] Xczfhh[address] [facility] ANDREW [id number] Information: [id number] Phosphorus ([id number])Ordered By : Mincing Machine Operator on 05-20-2012 Phosphate mass conc 2.6 mg/dL Normal 2.5-4.5 Compr ehensive [facility] Work Phone: Comment on above: PATIENT NOT FASTINGP ERFORMED BY: CB [facility] Ubryeu8933 [facility] [id number] Information: ADD [id number] AND DRAW FEE [id number] PELVIC (NON )Ordered By: Mincing Machine Operator on 05-11-2012 PELVIC (NON ) See Note Normal [facility] Work Phone: Comment on above: PROCEDURE: ULTRASOUN D OF THE FEMALE PELVIS - COMPLETE REASON FOR EXAM: Female, 52 years old. LMP: The patient ispostmenopausal. TECHNIQUE: Transabdominal and Transvaginal TECHNICAL QUALITY: Adequate. COMPARISON: None. FINDINGS:The uterus is anteverted and is in a midline position. The uterusmeasures8.5 cm x 4.9 cm by 3.1 cm. A small amount of fluid is seen within theendocervical canal. The endometrium measures 3.7 mm in thickness, and ishyperechoic. There is no demonstrated endometrial mass. There isevidenceof a 1.6 cm x 1.3 cm x 1.4 cm fibroid in the body of the uterus. I.U.D.-No The right ovary is visualized. The right ovary measures 2.3 cm x 1.5 cmby1.4 cm. A dominant follicle is seen within it. This measures 1.4 cmx0.8cm x 0.6 cm. There is no visualized right adnexal mass or complex lesion.There is normal arterial and normal venous vascularity. The left ovary is visualized. The left ovary measures 2.7 cm x 2.1 cm by1.7 cm. There is no left ovarian cyst or ovarian mass. There is a cystmeasuring 2 cm x 1.3 cm x 1.8 cm. There is normal arterial and normalvenous vascularity. There is no fluid in the cul-de-sac. IMPRESSION:Small uterine fibroid with a small amount of fluid in the endocervicalcanal.Small left ovarian cyst. Signed:Logan Russell M.D.May 11, 2012 at 4:16:44 PM [id number] Signed GP/GP If you are the referring physician and would like to consult with theradiologist who provided this interpretation, please contact Tylor Alvarez at [phone]. If this radiologist is unavailable, youwill be directed to another radiologist to assist. If you are a patient with a question regarding this report, pleasecontactyour referring physician directly. Professional Interpretation Provided By: [employer], Phone , These documents contain legally protected and confidential healthinformation intended only for the use of the individual or entity namedabove. If you are not the intended recipient, you are hereby notifiedthatany disclosure, copying, distribution, or other use of these documents isstrictly prohibited. If you have received this information in error,pleasenotify the sender immediately and arrange for the return or destructionofthese documents. Dictated on 05/11/12 1344 by Jagruti Russell MDranscribed on 05/12/12 0802 by ITS IMPORTSign by Logan Russell MD on 05/12/12 0803 Sign by: Logan Russell MD PROCEDURE: ULTRASOUN D OF THE FEMALE PELVIS - COMPLETE REASON FOR EXAM: Female, 52 years old. LMP: The patient ispostmenopausal. TECHNIQUE: Transabdominal and Transvaginal TECHNICAL QUALITY: Adequate. COMPARISON: None. FINDINGS:The uterus is anteverted and is in a midline position. The uterusmeasures8.5 cm x 4.9 cm by 3.1 cm. A small amount of fluid is seen within theendocervical canal. The endometrium measures 3.7 mm in thickness, and ishyperechoic. There is no demonstrated endometrial mass. There isevidenceof a 1.6 cm x 1.3 cm x 1.4 cm fibroid in the body of the uterus. I.U.D.-No The right ovary is visualized. The right ovary measures 2.3 cm x 1.5 cmby1.4 cm. A dominant follicle is seen within it. This measures 1.4 cmx0.8cm x 0.6 cm. There is no visualized right adnexal mass or complex lesion.There is normal arterial and normal venous vascularity. The left ovary is visualized. The left ovary measures 2.7 cm x 2.1 cm by1.7 cm. There is no left ovarian cyst or ovarian mass. There is a cystmeasuring 2 cm x 1.3 cm x 1.8 cm. There is normal arterial and normalvenous vascularity. There is no fluid in the cul-de-sac. IMPRESSION:Small uterine fibroid with a small amount of fluid in the endocervicalcanal.Small left ovarian cyst. Signed:Logan Russell M.D.May 11, 2012 at 4:16:44 PM [id number] Signed GP/GP If you are the referring physician and would like to consult with theradiologist who provided this interpretation, please contact Tylor Alvarez at [phone]. If this radiologist is unavailable, youwill be directed to another radiologist to assist. If you are a patient with a question regarding this report, pleasecontactyour referring physician directly. Professional Interpretation Provided By: [employer], Phone , These documents contain legally protected and confidential healthinformation intended only for the use of the individual or entity namedabove. If you are not the intended recipient, you are hereby notifiedthatany disclosure, copying, distribution, or other use of these documents isstrictly prohibited. If you have received this information in error,pleasenotify the sender immediately and arrange for the return or destructionofthese documents. Dictated on 05/11/12 1344 by Magaly Russell MDscribed on 05/11/12 1620 by ITS IMPORTSign by Logan Russell MD on 05/11/12 1830 Sign by: Niko JUSTIN,Logan [id number] By: Tali lowe on 02-01-2012 CA125 10.4 U/mL Normal 0.0-34.0 [facility] Work Phone: Comment on above: Lydia ECLIA methodol ogy CBCMDOrdered By: Tali lowe on 02-01-2012 Erythrocyte distribution width (RBC) [Ratio] 13.2 % Normal 11.6-14.6 [facility] Work Phone: Erythrocyte distribution width Auto Ratio (RBC) 13.2 % Normal 11.6-14.6 [facility] Work Phone: Hematocrit (Bld) [Volume fraction] 42.4 % Normal 37-47 [facility] Work Phone: Hematocrit Auto Volume Fraction (Bld) 42.4 % Normal 37-47 [facility] Work Phone: Hemoglobin mass conc (Bld) 14.3 g.dL Normal 12.0-15.0 [facility] Work Phone: Lymphocytes/100 WBC (Bld) 21 % Normal 19-41 [facility] Work Phone: Lymphocytes/100 WBC Auto (Bld) 21 % Normal 19-41 [facility] Work Phone: MCH (RBC) [Entitic mass] 31.4 pg Normal 27.0-32.0 [facility] Work Phone: MCH Auto Entitic mass (RBC) 31.4 pg Normal 27.0-32.0 [facility] Work Phone: MCHC (RBC) [Mass/Vol] 33.8 g/dL Normal 32-36 [facility] Work Phone: MCHC Auto mass conc (RBC) 33.8 g/dL Normal 32-36 [facility] Work Phone: MCV (RBC) [Entitic vol] 92.8 fL Normal 81-99 [facility] Work Phone: MCV Auto Entitic volume (RBC) 92.8 fL Normal 81-99 [facility] Work Phone: Neutrophils (Bld) [#/Vol] 3.5 3/uL Normal 2.0-7.7 [facility] Work Phone: Neutrophils Auto #/vol (Bld) 3.5 3/uL Normal 2.0-7.7 [facility] Work Phone: Platelets (Bld) [#/Vol] 250 10*3/uL Normal 150-450 [facility] Work Phone: Platelets Auto #/vol (Bld) 250 10*3/uL Normal 150-450 [facility] Work Phone: RBC (Bld) [#/Vol] 4.56 {M/mm3} Normal 4.2-5.4 Compr ehens[facility] Work Phone: RBC (Bld) [#/Vol] NORM C+C Normal Compreh ens[facility] Work Phone: RBC Auto #/vol (Bld) NORM C+C Normal Comp rehensive [facility] Work Phone: RBC Auto #/vol (Bld) 4.56 {M/mm3} Normal 4.2-5.4 Co mprehensive [facility] Work Phone: WBC (Bld) [#/Vol] 5.8 10*3/uL Normal 4.4-11.0 Compre hensive [facility] Work Phone: WBC Auto #/vol (Bld) 5.8 10*3/uL Normal 4.4-11.0 Com prehens[facility] Work Phone: CBCMD ADEQUATE Normal [facility] Work Phone: CBCMD 100 1 Normal [facility] Work Phone: CBCMD 68 % Normal 47-70 [facility] Work Phone: CBCMD 11 % Abnormal 0-10 [facility] Work Phone: CMPOrdered By: System Manage r on 02-01-2012 Albumin mass conc 4.1 g/dL Normal 3.4-5.0 Compreh [facility] Work Phone: Albumin/Globulin mass ratio 1.2 {RATIO} Normal 0.9-2.4 [facility] Work Phone: ALP enzyme act/vol 73 U/L Normal 50-136 [facility] Work Phone: ALT enzyme act/vol 23 U/L Normal 12-78 [facility] Work Phone: Anion gap 3 molar conc 9 mmol/L Normal 5-15 [facility] Work Phone: Anion gap [Moles/Vol] 9 mmol/L Normal 5-15 [facility] Work Phone: AST enzyme act/vol 18 U/L Normal 15-37 [facility] Work Phone: Bilirubin mass conc 0.50 mg/dL Normal 0.00-1.00 [facility] Work Phone: Calcium mass conc 9.2 mg/dL Normal 8.5-10.1 [facility] Work Phone: Chloride molar conc 103 mmol/L Normal 98-107 [facility] Work Phone: CO2 molar conc 28.0 mmol/L Normal 21.0-32.0 [facility] Work Phone: Creatinine mass conc 0.8 mg/dL Normal 0.6-1.0 [facility] Work Phone: GFR/1.73 sq M predicted among blacks MDRD vol rate/area (S/P/Bld) 97 mL/min/{1.73_m2} Normal [facility] Work Phone: GFR/1.73 sq M.predicted MDRD (S/P/Bld) [Vol rate/Area] 80 mL/min/{1.73_m2} Normal [facility] Work Phone: GFR/1.73 sq M.predicted MDRD vol rate/area 80 mL/min/{1.73_m2} Normal [facility] Work Phone: Globulin (S) [Mass/Vol] 3.5 g/dL Normal 2.7-4.2 [facility] Work Phone: Globulin Calculated mass conc (S) 3.5 g/dL Normal 2.7-4.2 [facility] Work Phone: Glucose mass conc 92 mg/dL Normal 70-110 Compreh ensive [facility] Work Phone: Potassium molar conc 4.2 mmol/L Normal 3.5-5.1 Comp rehensive [facility] Work Phone: Protein mass conc 7.6 g/dL Normal 6.4-8.2 Compreh ens[facility] Work Phone: Sodium molar conc 140 mmol/L Normal 136-145 Compre[facility] Work Phone: Urea nitrogen mass conc 13 mg/dL Normal 7-18 [facility] Work Phone: Urea nitrogen/Creatinine mass ratio 16.3 {RATIO} Normal - [facility] Work Phone: LIPIDOrdered By: System Leta chrissy on 02-01-2012 Cholesterol in HDL mass conc 57 mg/dL Normal [facility] Work Phone: Comment on above: Reference Range HDL <40 mg/dL Low HDL Cholesterol HDL >or= 60 mg/dL High HDL Cholesterol Cholesterol in LDL mass conc 123 mg/dL Normal 0-130 [facility] Work Phone: Cholesterol in VLDL mass conc 22 mg/dL Normal 5-40 [facility] Work Phone: Cholesterol mass conc 202 mg/dL Abnormal [facility] Work Phone: Comment on above: <200 mg/dL Desirable 200-240 mg/dL Borderline >240 mg/dL High Risk Triglyceride mass conc 112 mg/dL Normal [facility] Work Phone: Comment on above: Serum Triglycerides Reference Interval Normal <150 mg/dL Borderline high 150 - 199 mg/dL High 200 - 499 mg/dL Very High > or = 500 mg/dL PHOSOrdered By: System Manag er on 02-01-2012 PHOS 2.1 mg/dL Abnormal 2.5-4.9 [facility] Work Phone: PTHINOrdered By: System Leta chrissy on 02-01-2012 PTHIN 62 pg/mL Normal 14-72 [facility] Work Phone: UACOrdered By: System Manage r on 02-01-2012 RBC (U) [#/Vol] 0 SEEN Normal 0-5 Comprehen sive [facility] Work Phone: WBC (U) [#/Vol] 0 SEEN Normal 0-5 Comprehen sive [facility] Work Phone: UAC Negative Normal [facility] Work Phone: UAC 7.5 1 Normal 5.0-8.0 [facility] Work Phone: UAC 1.010 1 Normal 1.002-1.030 [facility] Work Phone: UAC 0.2 EU/dl Normal 0.2 - 1.0 [facility] Work Phone: UAC Yellow Normal [facility] Work Phone: UAC 0 SEEN Normal [facility] Work Phone: UAC Clear Normal [facility] Work Phone: UAC 0-5 SEEN Normal 5-10 [facility] Work Phone: VITDOrdered By: System Manag er on 02-01-2012 VITD 37.7 ng/mL Normal 30.0-100.0 [facility] Work Phone: Comment on above: Vitamin D deficiency has been defined by the [place] ofMedicine and an Endocrine Society practice guideline as alevel of serum 25-OH vitamin D less than 20 ng/mL (1,2).The Endocrine Society went on to further define vitamin Dinsufficiency as a level between 21 and 29 ng/mL (2).1. IOM ([place] of Medicine). 2010. Dietary reference intakes for calcium and D. [place]: The National Academies Press.2. Diego MF, Yayo [place], Peter VELA, et al. Evaluation, treatment, and prevention of vitamin D deficiency: an Endocrine Society clinical practice guideline. JCEM. 2010; 96(7):1911-30.Performed at: - [facility] [id number] Director: Maria De Jesus Laureano MD, Phone: [phone] PELVIC (NON )Ordered By: Mincing Machine Operator on 01-20-2012 PELVIC (NON ) See Note Normal [facility] Work Phone: Comment on above: PROCEDURE: ULTRASOUN D OF THE FEMALE PELVIS - COMPLETE REASON FOR EXAM: Female, 51 years old. LMP: The patient ispostmenopausal. Enlarged uterus. TECHNIQUE: Transabdominal and Transvaginal TECHNICAL QUALITY: Adequate. COMPARISON: None. FINDINGS:The uterus is anteverted and is in a midline position. The uterusmeasures9 cm x 4.1 cm by 3.6 cm. Normal uterine cervix. The endometriummeasures3.1 mm in thickness, and is hyperechoic. There is no demonstratedendometrial mass. There is evidence of a 1.1 cm x 0.7 cm x 0.9 cmfibroidin the fundal aspect of the uterus. I.U.D. - No The right ovary is visualized. The right ovary measures 1.7 cm x 1.5 cmby1.0 cm. There is no right ovarian cyst or ovarian mass. There is novisualized right adnexal mass or complex lesion. The left ovary is visualized. The left ovary measures 3.7 cm x 2.7 cm by2.1 cm. There is a 2.2 cm x 1.9 cm x 1.5 cm cyst in the ovary. There isno visualized left adnexal mass or complex lesion. There is no fluid in the cul-de-sac. IMPRESSION:Small left ovarian cyst.Small fibroid within the fundal aspect of the uterus. Signed:Logan Russell M.D.January 20, 2012 at 2:58:07 PM [id number] Signed GP/GP If you are the referring physician and would like to consult with theradiologist who provided this interpretation, please contact Tylor Alvarez at [phone]. If this radiologist is unavailable, youwill be directed to another radiologist to assist. If you are a patient with a question regarding this report, pleasecontactyour referring physician directly. Professional Interpretation Provided By: [employer], Phone , These documents contain legally protected and confidential healthinformation intended only for the use of the individual or entity namedabove. If you are not the intended recipient, you are hereby notifiedthatany disclosure, copying, distribution, or other use of these documents isstrictly prohibited. If you have received this information in error,pleasenotify the sender immediately and arrange for the return or destructionofthese documents. Dictated on 01/20/12920 by Jagruti Russell MDranscribed on 01/20/121642 by ITS IMPORTSign by Logan Russell MD on 01/20/121642 Sign by: Logan Russell MD PROCEDURE: ULTRASOUN D OF THE FEMALE PELVIS - COMPLETE REASON FOR EXAM: Female, 51 years old. LMP: The patient ispostmenopausal. Enlarged uterus. TECHNIQUE: Transabdominal and Transvaginal TECHNICAL QUALITY: Adequate. COMPARISON: None. FINDINGS:The uterus is anteverted and is in a midline position. The uterusmeasures9 cm x 4.1 cm by 3.6 cm. Normal uterine cervix. The endometriummeasures3.1 mm in thickness, and is hyperechoic. There is no demonstratedendometrial mass. There is evidence of a 1.1 cm x 0.7 cm x 0.9 cmfibroidin the fundal aspect of the uterus. I.U.D. - No The right ovary is visualized. The right ovary measures 1.7 cm x 1.5 cmby1.0 cm. There is no right ovarian cyst or ovarian mass. There is novisualized right adnexal mass or complex lesion. The left ovary is visualized. The left ovary measures 3.7 cm x 2.7 cm by2.1 cm. There is a 2.2 cm x 1.9 cm x 1.5 cm cyst in the ovary. There isno visualized left adnexal mass or complex lesion. There is no fluid in the cul-de-sac. IMPRESSION:Small left ovarian cyst.Small fibroid within the fundal aspect of the uterus. Signed:Logan Russell M.D.January 20, 2012 at 2:58:07 PM [id number] Signed GP/GP If you are the referring physician and would like to consult with theradiologist who provided this interpretation, please contact Tylor Alvarez at [phone]. If this radiologist is unavailable, youwill be directed to another radiologist to assist. If you are a patient with a question regarding this report, pleasecontactyour referring physician directly. Professional Interpretation Provided By: [employer], Phone , These documents contain legally protected and confidential healthinformation intended only for the use of the individual or entity namedabove. If you are not the intended recipient, you are hereby notifiedthatany disclosure, copying, distribution, or other use of these documents isstrictly prohibited. If you have received this information in error,pleasenotify the sender immediately and arrange for the return or destructionofthese documents. Dictated on 01/20/12 0921 by Jagruti Russell MDranscribed on 01/20/12 1643 by ITS IMPORTSign by Logan Russell MD on 01/20/12 1644 Sign by: Logan Russell MD HPV automatic ([id number])Ordered By: Mincing Machine Operator on 01-14-2012 HPV 16+18+31+33+35+39+45 +51+52+56+58+59+68 DNA Probe+sig amp Ql (Cvx) Negative Normal [facility] Work Phone: Comment on above: This high-risk HPV t est detects thirteen high-risk types(16/18/31/33/35/39/45/51/52/56/58/59/68) without differentiation. . Source.............C ervical;EndocervicalNo. of containers..01 CYTYC Thin Prep VialPATIENT NOT FASTINGPERFORMED BY: [facility] Nadeokeapc[address] [place] [facility] W [id number] BY: =G [facility] Losvjlbomx[address] [place] DorisrLE[facility] [id number] Information: [id number] HPV 16+18+31+33+35+39+45 +51+52+56+58+59+68 DNA Probe+sig amp Ql (Cvx) Negative Normal [facility]; [facility] Work Phone: Comment on above: This high-risk HPV t est detects thirteen high-risk types(16/18/31/33/35/39/45/51/52/56/58/59/68) without differentiation. . Source.............C ervical;EndocervicalNo. of containers..01 CYTYC Thin Prep VialPATIENT NOT FASTINGPERFORMED BY: LabSquawka Xbnpppmqyz36158 Castro StreetJoannUPMC [facility]'s [facility] [id number] BY: =G [facility] Kvluskfvef[address] [id number] Information: [id number] Microscopic observation Other stain Nom (Unsp spec) . Normal [facility] Work Phone: Comment on above: Source.............C ervical;EndocervicalNo. of containers..01 CYTYC Thin Prep VialPATIENT NOT FASTINGPERFORMED BY: [facility] Gsogwhyhxt[address] Mor[address] StreetrLECOM Health - [facility] [id number] BY: =G LabSqu[facility] Epdiiwwwjo648 [facility] HospitalbrittanyClinton HospitalrLECOM [facility] [id number] Information: [id number] Pathology report final diagnosis Narrative [facility] Normal [facility] Work Phone: Comment on above: NEGATIVE FOR INTRAEP ITHELIAL LESION AND MALIGNANCY.THIS SPECIMEN WAS RESCREENED PART OF OUR AUDOGRAPH OPERATOR PROGRAM.Satisfactory for evaluation. Endocervical and/or squamous metaplasticcells (endocervical component) are present.V72.31 ; Routine gynecological examinationKamala Lutz, Ecdis N Navigation Operator (ASCP)Amita Callahan, Supervisory Ecdis N Navigation Operator (ASCP) Source.............C ervical;EndocervicalNo. of containers..01 CYTYC Thin Prep VialPATIENT NOT FASTINGPERFORMED BY: WB [facility] Jonpxbcctg[address] PlabrittanyCounterTackrleston [place] [id number] BY: =G [facility] Ebtegocadz[address] PlazaCharleston [place] [id number] Information: [id number] HPV automatic ([id number]) PAPSMR Normal [facility] Work Phone: Comment on above: The Pap smear is a s creening test designed to aid in the detection ofpremalignant and malignant conditions of the uterine cervix. It is not adiagnostic procedure and should not be used as the sole means of detectingcervical cancer. Both false-positive and false-negative reports do occur. .This liquid based ThinPrep(R) pap test was screened with theuse of an image guided system. Source.............C ervical;EndocervicalNo. of containers..01 CYTYC Thin Prep VialPATIENT NOT FASTINGPERFORMED BY: [facility] Bhelsvsttg[address] [place] [id number] BY: =G [facility] Qfcbmzjmee[address] PlazaCharleston [place] [id number] Information: [id number] BILAT SCRN DIGITAL & CADOrde red By: Mincing Machine Operator on 06-12-2011 BILAT SCRN DIGITAL & CAD See Note Normal [facility] Work Phone: Comment on above: MAMMOGRAPHY - BILATE RAL SCREENING REASON FOR EXAM: Female, 51 years old. Routine annual screeningexamination. PERTINENT HISTORY: Grandmother with breast cancer. TECHNIQUE: Digital examination. Mediolateral oblique (MLO) andcraniocaudad (CC) views of both breasts were obtained. CAD: CAD wasperformed on this study. COMPARISON: Comparison is made with prior study dated February 08, 2010. FINDINGS:The breast composition is heterogeneously dense. There are no dominant masses or suspicious calcifications. No other significant abnormalities are identified. There has been nosignificant change since the prior study. IMPRESSION:Stable bilateral screening mammogram. Yearly follow-up recommended. (A) ASSESSMENT CATEGORY:BIRADS Category 2: Benign finding(s). A letter regarding these resultswill be sent to the patient by the facility within 30 days. Approximately 10% of breast cancers are not detected by mammography. Anormal mammogram should not delay biopsy of a clinically suspiciousabnormality. To consult with a radiologist regarding this report, please call our [id number] line @ Dictated on 06/12/11 0737 by Niko JUSTIN,AndrewriKristieranscribed on 06/12/11 08 by ITS IMPORTSign by Niko JUSTIN,Logan on 06/12/11802 Sign by: Logan Russell MD Thin prep Pap ([id number])Ordered By: Mincing Machine Operator on 03-13-2010 Microscopic observation Other stain Nom (Unsp spec) . Normal [facility] Work Phone: Comment on above: Source.............C ervical;EndocervicalLMP / Prev Treat...NQV=[id number]. of containers..01 CYTYC Thin Prep VialPATIENT NOT FASTINGPERFORMED BY: [facility] [address] [id number] Information: [id number] Pathology report final diagnosis Narrative [facility] Normal [facility] Work Phone: Comment on above: NEGATIVE FOR INTRAEP ITHELIAL LESION AND MALIGNANCY.Satisfactory for evaluation. No endocervical component is identified.V72.31 ; Routine gynecological examinationKaycee Heater, Ecdis N Navigation Operator (ASCP) Source.............C ervical;EndocervicalLMP / Prev Treat...PFU=[id number]. of containers..01 CYTYC Thin Prep VialPATIENT NOT FASTINGPERFORMED BY: Springbuk[address] [id number] Information: [id number] Thin prep Pap ([id number]) PAPSMR Normal [facility] Work Phone: Comment on above: The Pap smear is a s creening test designed to aid in the detection ofpremalignant and malignant conditions of the uterine cervix. It is not adiagnostic procedure and should not be used as the sole means of detectingcervical cancer. Both false-positive and false-negative reports do occur. .The HPV DNA reflex criteria were not met with this specimen resulttherefore, no HPV testing was performed. . Source.............C ervical;EndocervicalLMP / Prev Treat...CTF=[id number]. of containers..01 CYTYC Thin Prep VialPATIENT NOT FASTINGPERFORMED BY: [place] Hye[address]vafnc[address] [id number] Information: [id number] CBCD,SMEAR DIFFOrdered By: Augustin dobbstem Lead Clinical Research Coordinator on 02-24-2010 Eosinophils/100 WBC (Bld) 4 % Normal 0-5 [facility] Work Phone: Eosinophils/100 WBC Auto (Bld) 4 % Normal 0-5 [facility] Work Phone: Erythrocyte distribution width (RBC) [Ratio] 12.7 % Normal 11.6-14.6 [facility] Work Phone: Erythrocyte distribution width Auto Ratio (RBC) 12.7 % Normal 11.6-14.6 [facility] Work Phone: Hematocrit (Bld) [Volume fraction] 40.3 % Normal 37-47 [facility] Work Phone: Hematocrit Auto Volume Fraction (Bld) 40.3 % Normal 37-47 [facility] Work Phone: Hemoglobin mass conc (Bld) 13.9 g/dL Normal 12.0-16.0 [facility] Work Phone: Lymphocytes/100 WBC (Bld) 35 % Normal 19-41 [facility] Work Phone: Lymphocytes/100 WBC Auto (Bld) 35 % Normal 19-41 [facility] Work Phone: MCH (RBC) [Entitic mass] 31.5 pg Normal 27.0-32.0 [facility] Work Phone: MCH Auto Entitic mass (RBC) 31.5 pg Normal 27.0-32.0 [facility] Work Phone: MCHC (RBC) [Mass/Vol] 34.4 g/dL Normal 32-36 [facility] Work Phone: MCHC Auto mass conc (RBC) 34.4 g/dL Normal 32-36 [facility] Work Phone: MCV (RBC) [Entitic vol] 91.6 fL Normal 81-99 [facility] Work Phone: MCV Auto Entitic volume (RBC) 91.6 fL Normal 81-99 [facility] Work Phone: Monocytes/100 WBC (Bld) 2 % Normal 0-10 [facility] Work Phone: Monocytes/100 WBC Auto (Bld) 2 % Normal 0-10 [facility] Work Phone: Neutrophils (Bld) [#/Vol] 3.5 3/uL Normal 2.0-7.7 [facility] Work Phone: Neutrophils Auto #/vol (Bld) 3.5 3/uL Normal 2.0-7.7 [facility] Work Phone: Platelets (Bld) [#/Vol] SeeNote Normal [facility] Work Phone: Comment on above: Result: ADEQUATE Platelets (Bld) [#/Vol] 247 10*3/uL Normal 150-450 [facility] Work Phone: Platelets Auto #/vol (Bld) 247 10*3/uL Normal 150-450 [facility] Work Phone: RBC (Bld) [#/Vol] 4.40 {M/mm3} Normal 4.2-5.4 [facility] Internal Medicine Work Phone: RBC Auto #/vol (Bld) 4.40 {M/mm3} Normal 4.2-5.4 [facility] Internal Medicine Work Phone: WBC (Bld) [#/Vol] 5.9 10*3/uL Normal 4.4-11.0 [facility] Internal Medicine Work Phone: WBC Auto #/vol (Bld) 5.9 10*3/uL Normal 4.4-11.0 [facility] Internal Medicine Work Phone: CBCD,SMEAR DIFF SeeNote Normal [facility] Work Phone: Comment on above: Result: ADEQUATE Result: NORM C+C CBCD,SMEAR DIFF 59 % Normal 47-70 [facility] Internal Medicine Work Phone: CBCD,SMEAR DIFF 100 1 Normal [facility] Internal Medicine Work Phone: COMP METABOLICOrdered By: Everett stem Lead Clinical Research Coordinator on 02-24-2010 Albumin mass conc 3.7 g/dL Normal 3.4-5.0 [facility] Internal Medicine Work Phone: Albumin/Globulin mass ratio 1.1 {RATIO} Normal 0.9-2.4 [facility] Internal [facility] Work Phone: ALP enzyme act/vol 71 U/L Normal 50-136 [facility] Internal Medicine Work Phone: ALT enzyme act/vol 21 U/L Normal 12-78 [facility] Internal Medicine Work Phone: Anion gap 3 molar conc 8 mmol/L Normal 5-15 [facility] Internal Medicine Work Phone: Anion gap [Moles/Vol] 8 mmol/L Normal 5-15 [facility] Work Phone: AST enzyme act/vol 18 U/L Normal 15-37 [facility] Internal Medicine Work Phone: Bilirubin mass conc 0.40 mg/dL Normal 0.00-1.00 Compr ehensive Internal Medicine Work Phone: Calcium mass conc 8.6 mg/dL Normal 8.5-10.1 Compreh ensive Internal Medicine Work Phone: Chloride molar conc 105 mmol/L Normal 98-107 Compr ehensive Internal Medicine Work Phone: CO2 molar conc 29.0 mmol/L Normal 21.0-32.0 Comprehen sive Internal Medicine Work Phone: Creatinine mass conc 0.8 mg/dL Normal 0.6-1.0 Comp rehensive Internal Medicine Work Phone: GFR/1.73 sq M predicted among blacks MDRD vol rate/area (S/P/Bld) 98 mL/min/{1.73_m2} Normal Comprehe nsive Internal Medicine Work Phone: GFR/1.73 sq M.predicted MDRD (S/P/Bld) [Vol rate/Area] 81 mL/min/{1.73_m2} Normal Comprehensiv e [facility] Medicine Work Phone: GFR/1.73 sq M.predicted MDRD vol rate/area 81 mL/min/{1.73_m2} Normal Comprehensiv e [facility] Work Phone: Globulin (S) [Mass/Vol] 3.4 g/dL Normal 2.7-4.2 [facility] Work Phone: Globulin Calculated mass conc (S) 3.4 g/dL Normal 2.7-4.2 [facility] Work Phone: Glucose mass conc 88 mg/dL Normal 70-110 Compreh ensive Internal Medicine Work Phone: Potassium molar conc 4.2 mmol/L Normal 3.5-5.1 Comp rehensive Internal Medicine Work Phone: Protein mass conc 7.1 g/dL Normal 6.4-8.2 Compreh ensive [facility] Work Phone: Sodium molar conc 142 mmol/L Normal 136-145 Compreh ensive [facility] Work Phone: Urea nitrogen mass conc 14 mg/dL Normal 7-18 [facility] Work Phone: Urea nitrogen/Creatinine mass ratio 17.5 {RATIO} Normal 10-20 [facility] Work Phone: TSHOrdered By: System Manage r on 02-24-2010 Thyrotropin Qn 1.56 {uIU/mL} Normal 0.358-3.74 Compreh ensive Internal Medicine Work Phone: VIT D,25 [id number] By: Sy stem Lead Clinical Research Coordinator on 02-24-2010 VIT D,25 35838 30.0 ng/mL Abnormal 32.0-100.0 Comprehens kaila Internal Medicine Work Phone: Comment on above: Recent studies consi rachell the lower limit of 32.0 ng/mL to joselo threshold for optimal health.Sanket EVANS. J Nutr. 2004;135(2):317-22.Performed at: [address] [id number] Director: Maria De Jesus Laureano MD, Phone: [phone] BILAT SCRN DIGITAL & CADOrde red By: Mincing Machine Operator on 02-08-2010 BILAT SCRN DIGITAL & CAD See Note Normal [facility] Work Phone: Comment on above: Exam Number: [id number] AMMOGRAPHY - BILATERAL SCREENING INDICATION:Routine annual screening examination. PERTINENT HISTORY:Grandmother with breast cancer. TECHNIQUE:Digital examination. Mediolateral oblique (MLO) and craniocaudad (CC) views of both breasts were obtained. CAD was performed on this study. COMPARISON:Comparison is made with prior examination dated April and November 03, 2008. FINDINGS:The breast composition is heterogeneously dense. There are no masses or suspicious microcalcifications. No other significant abnormalities are identified. There has been no significant change since the prior study. IMPRESSION:Normal bilateral screening mammogram. Yearly follow-up recommended. ASSESSMENT CATEGORY:Category 2: Benign finding(s) Approximately 10% of breast cancers are not detected by mammography. A normal mammogram should not delay biopsy of a clinically suspicious abnormality.This addendum is being created for the purpose of attaching a ResultCode to this exam. ADDENDUM: [id number] HPBI/MDS Reported By: LOGAN RUSSELL UNILAT LT DIAG DIGITAL & CAD Ordered By: Mincing Machine Operator on 05-08-2009 UNILAT LT DIAG DIGITAL & CAD See Note Normal [facility] Work Phone: Comment on above: Exam Number: [id number] MAMMOGRAM, UNILATERAL LEFT DIAGNOSTIC DIGITAL AND CAD HISTORY6-month followup stereotactic biopsy. TECHNIQUEFull field digital images were obtained in mediolateral oblique,craniocaudal, and true lateral projections. CAD images were reviewed. The current study is compared to the examinations of April 22, 2007,and November 03, 2008. FINDINGSThere is a ccdnvujd-te-ozficg extent of fibroglandular parenchymapresent. There is no skin thickening or retraction and noarchitectural distortion. Since the previous examination, there hasbeen a stereotactic localization procedure in the lower inner quadrantof the left breast. The group of calcifications seen at that locationon the previous study are no longer identified. There is no alocalization clip at their previous site. There is no dominant mass.If there is no suspicious palpable abnormality, it is suggested thatthe patient be scheduled for a bilateral screening study in 6 monthsto reestablish her normal screening pattern. IMPRESSIONThere is no radiographic evidence of malignancy identified. FINAL ASSESSMENTBenign findings. BIRADS Category 2. A letter regarding these results has been sent to the patient. This interpretation was rendered by a radiologist certified under theMammography Quality Standards Act of 1992 (MQSA). The mammograms werealso examined with computer-aided detection software ([employer] Reported By: TERI MEDEIROS M.D. PHOSOrdered By: System Manag er on 04-21-2009 PHOS 2.2 mg/dL Abnormal 2.5-4.9 [facility] Work Phone: PTH,IntactOrdered By: Mincing Machine Operator on 04-21-2009 PTH,Intact 53 pg/mL Normal 14-72 [facility] Work Phone: VIT D,25 [id number] By: DesignMedix stem Lead Clinical Research Coordinator on 04-21-2009 VIT D,25 43138 34.0 ng/mL Normal 32.0-100.0 Comprehens [facility] Work Phone: Comment on above: Recent studies consi rachell the lower limit of 32.0 ng/mL to joselo threshold for optimal health.Sanket EVANS. J Nutr. 2004;135(2):317-22.Performed At: [facility], [place] [id number] CBCD,SMEAR DIFFOrdered By: Augustin ystem Lead Clinical Research Coordinator on 04-05-2009 Basophils/100 WBC (Bld) 1 % Normal 0-1 [facility] Work Phone: Basophils/100 WBC Auto (Bld) 1 % Normal 0-1 [facility] Work Phone: Erythrocyte distribution width (RBC) [Ratio] 12.4 % Normal 11.6-14.6 [facility] Work Phone: Erythrocyte distribution width Auto Ratio (RBC) 12.4 % Normal 11.6-14.6 [facility] Work Phone: Hematocrit (Bld) [Volume fraction] 40.9 % Normal 37-47 [facility] Work Phone: Hematocrit Auto Volume Fraction (Bld) 40.9 % Normal 37-47 [facility] Work Phone: Hemoglobin mass conc (Bld) 13.7 g/dL Normal 12.0-16.0 [facility] Work Phone: Lymphocytes/100 WBC (Bld) 27 % Normal 19-41 [facility] Work Phone: Lymphocytes/100 WBC Auto (Bld) 27 % Normal 19-41 [facility] Work Phone: MCH (RBC) [Entitic mass] 31.0 pg Normal 27.0-32.0 [facility] Work Phone: MCH Auto Entitic mass (RBC) 31.0 pg Normal 27.0-32.0 [facility] Work Phone: MCHC (RBC) [Mass/Vol] 33.5 g/dL Normal 32-36 [facility] Work Phone: MCHC Auto mass conc (RBC) 33.5 g/dL Normal 32-36 [facility] Work Phone: MCV (RBC) [Entitic vol] 92.7 fL Normal 81-99 [facility] Internal [facility] Work Phone: MCV Auto Entitic volume (RBC) 92.7 fL Normal 81-99 [facility] Work Phone: Monocytes/100 WBC (Bld) 7 % Normal 0-10 [facility] Work Phone: Monocytes/100 WBC Auto (Bld) 7 % Normal 0-10 [facility] Work Phone: Platelets (Bld) [#/Vol] SeeNote Normal [facility] Work Phone: Comment on above: Result: ADEQUATE Platelets (Bld) [#/Vol] 207 10*3/uL Normal 150-450 [facility] Work Phone: Platelets Auto #/vol (Bld) 207 10*3/uL Normal 150-450 [facility] Internal Medicine Work Phone: RBC (Bld) [#/Vol] 4.42 {M/mm3} Normal 4.2-5.4 [facility] Internal Medicine Work Phone: RBC Auto #/vol (Bld) 4.42 {M/mm3} Normal 4.2-5.4 [facility] Internal Medicine Work Phone: WBC (Bld) [#/Vol] 7.5 10*3/uL Normal 4.4-11.0 [facility] Internal Medicine Work Phone: WBC Auto #/vol (Bld) 7.5 10*3/uL Normal 4.4-11.0 [facility] Internal Medicine Work Phone: CBCD,SMEAR DIFF SeeNote Normal [facility] Work Phone: Comment on above: Result: ADEQUATE Result: NORM C+C CBCD,SMEAR DIFF 100 1 Normal [facility] Work Phone: CBCD,SMEAR DIFF 65 % Normal 47-70 [facility] Work Phone: COMP METABOLICOrdered By: Sy stem Lead Clinical Research Coordinator on 04-05-2009 Albumin mass conc 4.0 g/dL Normal 3.4-5.0 Compreh ensive Internal Medicine Work Phone: Albumin/Globulin mass ratio 1.3 {RATIO} Normal 0.9-2.4 [facility] Work Phone: ALP enzyme act/vol 76 U/L Normal 50-136 Compre [facility] Internal Medicine Work Phone: ALT enzyme act/vol 21 U/L Normal 12-78 [facility] Internal Medicine Work Phone: Anion gap 3 molar conc 6 mmol/L Normal 5-15 [facility] Work Phone: Anion gap [Moles/Vol] 6 mmol/L Normal 5-15 [facility] Internal Medicine Work Phone: AST enzyme act/vol 19 U/L Normal 15-37 Compre [facility] Internal Medicine Work Phone: Bilirubin mass conc 0.40 mg/dL Normal 0.00-1.00 Compr ensive Internal Medicine Work Phone: Calcium mass conc 8.2 mg/dL Abnormal 8.5-10.1 Compreh ensive Internal Medicine Work Phone: Chloride molar conc 105 mmol/L Normal 98-107 Compr ensive Internal Medicine Work Phone: CO2 molar conc 28.0 mmol/L Normal 21.0-32.0 [facility] Internal [facility] Work Phone: Creatinine mass conc 0.7 mg/dL Normal 0.6-1.0 Comp [facility] Internal Medicine Work Phone: GFR/1.73 sq M predicted among blacks MDRD vol rate/area (S/P/Bld) 115 mL/min/{1.73_m2} Normal Compreh ensive Internal Medicine Work Phone: GFR/1.73 sq M.predicted MDRD (S/P/Bld) [Vol rate/Area] 95 mL/min/{1.73_m2} Normal Comprehensiv e Internal Medicine Work Phone: GFR/1.73 sq M.predicted MDRD vol rate/area 95 mL/min/{1.73_m2} Normal Comprehensiv e Internal Medicine Work Phone: Globulin (S) [Mass/Vol] 3.2 g/dL Normal 2.7-4.2 [facility] Work Phone: Globulin Calculated mass conc (S) 3.2 g/dL Normal 2.7-4.2 [facility] Work Phone: Glucose mass conc 91 mg/dL Normal 70-110 Compreh ensive Internal Medicine Work Phone: Potassium molar conc 4.1 mmol/L Normal 3.5-5.1 Comp rehensive Internal Medicine Work Phone: Protein mass conc 7.2 g/dL Normal 6.4-8.2 Compreh ensive Internal Medicine Work Phone: Sodium molar conc 139 mmol/L Normal 136-145 Compreh ensive [facility] Work Phone: Urea nitrogen mass conc 17 mg/dL Normal 7-18 [facility] Work Phone: Urea nitrogen/Creatinine mass ratio 24.3 {RATIO} Abnormal 10-20 [facility] Work Phone: LIPIDOrdered By: Tali lowe on 04-05-2009 Cholesterol in HDL mass conc 57 mg/dL Normal [facility] Work Phone: Comment on above: Reference Range HDL <40 mg/dL Low HDL Cholesterol HDL >or= 60 mg/dL High HDL Cholesterol Cholesterol in LDL mass conc 117 mg/dL Normal 0-130 [facility] Work Phone: Cholesterol in VLDL mass conc 24 mg/dL Normal 5-40 [facility] Work Phone: Cholesterol mass conc 198 mg/dL Normal [facility] Work Phone: Comment on above: <200 mg/dL Desirable 200-240 mg/dL Borderline >240 mg/dL High Risk Triglyceride mass conc 122 mg/dL Normal [facility] Work Phone: Comment on above: Serum Triglycerides Reference Interval Normal <150 mg/dL Borderline high 150 - 199 mg/dL High 200 - 499 mg/dL Very High > or = 500 mg/dL TSHOrdered By: System Manage r on 04-05-2009 Thyrotropin Qn 2.07 {uIU/mL} Normal 0.358-3.74 Compreh ensive Internal Medicine Work Phone: BRAIN/HEAD W/WO CONTRASTOrde red By: Mincing Machine Operator on 12-24-2008 BRAIN/HEAD W/WO CONTRAST See Note Normal [facility] Work Phone: Comment on above: Exam Number: [id number] CLINICAL:Migraines CT BRAIN WITH AND WITHOUT CONTRAST COMPARISON:None. TECHNIQUE:Transaxial imaging was performed pre-and post contrast administration. The examination was performed with intravenous administration of 50 ml of Isovue 370 contrast material. FINDINGS:Normal cerebral hemispheres, without volume loss, ventricular dilatation or cerebral edema. Normal white matter tracts of the supratentorial brain. Normal basal ganglia, and thalami. Normal brainstem, cerebellum and visualized posterior fossa structures. There is no demonstrated acute or evolving ischemic infarction. There is no intra-axial or extra-axial hemorrhage or hematoma. There is no intra-axial or extra-axial mass lesion. There is normal enhancement of the dural sinuses, and cortical veins. There is normal enhancement of the [place] of [place], without a demonstrated aneurysm. Normal osseous calvarium, visualized facial bones, central skull base, and temporal bones without a demonstrated fracture or destructive process. Normal soft tissue structures of the calvarium. Normal visualized paranasal sinuses without mucosal thickening or air-fluid levels. IMPRESSION:Normal enhanced CT scan of the brain without an acute or evolving intracranial process. Reported By: DAX SCHOFIELD M.D. BREAST UNILATERAL US ()Ord ered By: Mincing Machine Operator on 11-09-2008 BREAST UNILATERAL US () See Note Normal [facility] Work Phone: Comment on above: Exam Number: [id number] TARGETED LEFT BREAST ULTRASOUND HISTORY Abnormal mammogram. TECHNIQUE High-resolution, real-time linear images were obtained of the uppermid and central mid left breast. Ultrasound of the 9 o'clock area hadbeen performed previously on November 04, 2008. FINDINGSThere is extremely dense breast parenchyma identified. There is nofocal lesion identified within the breast. IMPRESSION There is no ultrasound abnormality. Reported By: TERI MEDEIROS M.D. BREAST UNILATERAL US (HP)Ord ered By: Mincing Machine Operator on 11-04-2008 BREAST UNILATERAL US (HP) See Note Normal [facility] Work Phone: Comment on above: Exam Number: [id number] TARGETED LEFT BREAST ULTRASOUND. HISTORYPalpable abnormality, abnormal mammogram. High resolution real time linear images of the left breast wereobtained at 9 o'clock at the level of palpable abnormality. The directions given to the research technologist were no clear, andthe 12 o'clock area was, therefore, not scanned. There is no evidence of a solid or cystic mass identified at thepalpable abnormality at 12 o'clock. The patient will be asked toreturn for additional ultrasound images at 12 o'clock at no additionalcharge. IMPRESSIONDue to miscommunication, the 12 o'clock area was not scanned byultrasound. The patient will be asked to return for images of thatarea at no additional charge. Reported By: TERI MEDEIROS M.D. BILAT DIAG DIGITAL & CADOrde red By: Mincing Machine Operator on 11-03-2008 BILAT DIAG DIGITAL & CAD See Note Normal [facility] Work Phone: Comment on above: Exam Number: [id number] MAMMOGRAM, BILATERAL DIAGNOSTIC DIGITAL AND CAD HISTORYLeft breast lump. Full field digital images were obtained in mediolateral oblique andcraniocaudal projections. Spot compression views of the left breastwere obtained centered at 12 o'clock. Magnification spot views of theleft breast were also obtained. The current study is compared to the examinations of May, and December 11, 2005. CAD images were reviewed. There is a severe extent of fibroglandular parenchyma present. Thereis no skin thickening or retraction or architectural distortion.On the initial images, there is a suggestion of increased densityat approximately 12 o'clock on the left. This suggestion is lessdefinite on the additional views. Ultrasound of this area isplanned. However, the patient was unable to have the study performedat the time of the mammogram and has scheduled the examination forMonday. There is a small group of calcifications in the lower innerquadrant of the left breast. Most of the calcifications arerelatively coarse and even. There are a few small calcifications seenwithin the group of the craniocaudal projection. Because of thepresence of the few small calcifications, surgical evaluation isrecommended. IMPRESSION1. There is questionable increased density of the left breast at approximately 12 o'clock. Ultrasound is scheduled for Friday.2. There is a small group of calcifications in the lower inner quadrant of the left breast for which surgical evaluation is recommended. FINAL ASSESSMENTSuspicious for malignancy. BIRADS Category 4. A letter regarding these results has been sent to the patient. This interpretation was rendered by a radiologist certified under theMammography Quality Standards Act of 1992 (MQSA). The mammograms werealso examined with computer-aided detection software ([employer].). Reported By: TERI MEDEIROS M.D. Thin prep Pap ([id number])Ordered By: Yoanna Tejada on 10-28-2008 Microscopic observation Other stain Nom (Unsp spec) . Normal [facility] Work Phone: Comment on above: Source.............C ervical;EndocervicalLMP / Prev Treat...NDA=[id number]. of containers..01 CYTYC Thin Prep VialPATIENT NOT FASTINGClinical Information: ADD [id number] PERFORMED BY: [facility] [facility] [id number] Pathology report final diagnosis Narrative [facility] Normal [facility] Work Phone: Comment on above: NEGATIVE FOR INTRAEP ITHELIAL LESION AND MALIGNANCY.CELLULAR CHANGES ASSOCIATED WITH INFLAMMATION ARE PRESENT.Satisfactory for evaluation. Endocervical and/or squamous metaplasticcells (endocervical component) are present.V72.31 ; Routine gynecological examinationJennifer Gary, Ecdis N Navigation Operator (ASCP) Source.............C ervical;EndocervicalLMP / Prev Treat...GYJ=[id number]. of containers..01 CYTYC Thin Prep VialPATIENT NOT FASTINGClinical Information: ADD [id number] PERFORMED BY: [facility] [facility] [id number] Thin prep Pap ([id number]) PAPSMR Normal [facility] Work Phone: Comment on above: The Pap smear is a s creening test designed to aid in the detection ofpremalignant and malignant conditions of the uterine cervix. It is not adiagnostic procedure and should not be used as the sole means of detectingcervical cancer. Both false-positive and false-negative reports do occur. .The HPV DNA reflex criteria were not met with this specimen resulttherefore, no HPV testing was performed. . Source.............C ervical;EndocervicalLMP / Prev Treat...LVC=[id number]. of containers..01 CYTYC Thin Prep VialPATIENT NOT FASTINGClinical Information: ADD [id number] PERFORMED BY: [facility] [id number] MYOCARD PERF SPECT REST/STRE SSOrdered By: Mincing Machine Operator on 08-18-2008 MYOCARD PERF SPECT REST/STRESS See Note Normal [facility] Work Phone: Comment on above: Exam Number: [id number] MYOCARDIAL PERFUSION SCAN TECHNIQUEThe patient was injected with 10 mCi of Tc99m Cardiolite andsubsequently rest SPECT Cardiolite nuclear imaging was obtained in thehorizontal long, vertical long, and short axes views. The patientexercised on a Niko protocol for 9 minutes achieving a peak heartrate of 179 beats per minute (104% predicted maximum heart rate) witha peak blood pressure of 154/88 mmHg and a peak MET capacity of 10METs. The patient was injected with 30 mCi of Tc99m Cardiolite andsubsequently stress SPECT Cardiolite nuclear imaging was obtained inthe horizontal long, vertical long, and short axes views. GatedCardiolite study at peak stress was obtained. INTERPRETATIONRest and stress SPECT Cardiolite nuclear imaging appear to demonstratemyocardial perfusion within normal limits. There are no myocardialperfusion changes noted on the resting or stress polar map images. There is end-systolic thickening and brightening and on the gatedCardiolite study myocardial thickening and inward wall motion. Thereported LVEF is 72%. IMPRESSION1. Rest and stress SPECT Cardiolite nuclear imaging appear todemonstrate myocardial perfusion within normal limits.2. The gated Cardiolite study reports an LVEF of 72. Reported By: SG SKY M.D. BMPOrdered By: System Manage r on 08-08-2008 Anion gap 3 molar conc 5 mmol/L Normal 5-15 [facility] Work Phone: Anion gap [Moles/Vol] 5 mmol/L Normal 5-15 [facility] Work Phone: Calcium mass conc 9.1 mg/dL Normal 8.5-10.1 Compre[facility] ens[facility] Work Phone: Chloride molar conc 103 mmol/L Normal 98-107 Compr ehensive [facility] Work Phone: CO2 molar conc 29.4 mmol/L Normal 21.0-32.0 Comprehen s[facility] Work Phone: Creatinine mass conc 0.8 mg/dL Normal 0.6-1.0 Comp rehensive [facility] Work Phone: GFR/1.73 sq M predicted among blacks MDRD vol rate/area (S/P/Bld) 98 mL/min/{1.73_m2} Normal Comprehe ns[facility] Work Phone: GFR/1.73 sq M.predicted MDRD (S/P/Bld) [Vol rate/Area] 81 mL/min/{1.73_m2} Normal [facility] Work Phone: GFR/1.73 sq M.predicted MDRD vol rate/area 81 mL/min/{1.73_m2} Normal [facility] Work Phone: Glucose mass conc 85 mg/dL Normal 70-110 Compreh ens[facility] Work Phone: Potassium molar conc 4.3 mmol/L Normal 3.5-5.1 Comp rehensive [facility] Work Phone: Sodium molar conc 137 mmol/L Normal 136-145 Compreh ens[facility] Work Phone: Urea nitrogen mass conc 11 mg/dL Normal 7-18 [facility] Work Phone: Urea nitrogen/Creatinine mass ratio 13.8 {RATIO} Normal 10-20 [facility] Work Phone: C-REACTIVE PROTOrdered By: Augustin dobbstem Lead Clinical Research Coordinator on 08-08-2008 CRP mass conc 2.01 mg/L Normal 0.0-6.0 Comprehensi ve [facility] Work Phone: Comment on above: Test performed using the Dimension C-Reactive ProteinExtended Range assay method. This assay meets the AHA/CDC 2003 recommendations fordetermining patients at high risk for cardiovasculardisease. Reference: High risk CRP >3.0 mg/L CPK ISO 2154Ordered By: Syst em Lead Clinical Research Coordinator on 08-08-2008 CK.MB mass conc 0 % Normal 0-3 Comprehen s[facility] Work Phone: CPK ISO 2154 0 % Normal [facility] e [facility] Work Phone: Comment on above: Performed At: [address] [id number] CPK ISO 2154 38 U/L Normal 24-173 [facility] Work Phone: CPK ISO 2154 100 % Normal 97-100 [facility] e [facility] Work Phone: CPK TOTALOrdered By: Mincing Machine Operator on 08-08-2008 CPK TOTAL 41 U/L Normal 21-215 [facility] Work Phone: COMP METABOLICOrdered By: stem Lead Clinical Research Coordinator on 02-26-2008 Albumin mass conc 3.7 g/dL Normal 3.4-5.0 Compreh ens[facility] Work Phone: Albumin/Globulin mass ratio 1.2 {RATIO} Normal 0.9-2.4 [facility] Work Phone: ALP enzyme act/vol 70 U/L Normal 50-136 Compre hensive [facility] Work Phone: ALT enzyme act/vol 30 U/L Normal 30-65 Compre hens[facility] Work Phone: Anion gap 3 molar conc 7 mmol/L Normal 5-15 [facility] Work Phone: Anion gap [Moles/Vol] 7 mmol/L Normal 5-15 [facility] Work Phone: AST enzyme act/vol 23 U/L Normal 15-37 Compre hensive [facility] Work Phone: Bilirubin mass conc 0.43 mg/dL Normal 0.00-1.00 Compr ehensive [facility] Work Phone: Calcium mass conc 8.6 mg/dL Normal 8.5-10.1 Compreh ensive [facility] Work Phone: Chloride molar conc 100 mmol/L Normal 98-107 Compr ehensive [facility] Work Phone: CO2 molar conc 26.6 mmol/L Normal 21.0-32.0 Comprehen [facility] Work Phone: Creatinine mass conc 0.8 mg/dL Normal 0.6-1.0 [facility] Work Phone: Globulin (S) [Mass/Vol] 3.2 g/dL Normal 2.7-4.2 [facility] Work Phone: Globulin Calculated mass conc (S) 3.2 g/dL Normal 2.7-4.2 [facility] Work Phone: Glucose mass conc 87 mg/dL Normal 70-110 Compreh ensive [facility] Work Phone: Potassium molar conc 4.2 mmol/L Normal 3.5-5.1 [facility] Work Phone: Protein mass conc 6.9 g/dL Normal 6.4-8.2 Compreh ensive [facility] Work Phone: Sodium molar conc 134 mmol/L Abnormal 136-145 Compreh ens[facility] Work Phone: Urea nitrogen mass conc 11 mg/dL Normal 7-18 [facility] Work Phone: Urea nitrogen/Creatinine mass ratio 13.8 {RATIO} Normal 10-20 [facility] Work Phone: LIPIDOrdered By: Tali lowe on 02-26-2008 Cholesterol in HDL mass conc 54 mg/dL Normal [facility] Work Phone: Comment on above: Reference Range HDL <40 mg/dL Low HDL Cholesterol HDL >or= 60 mg/dL High HDL Cholesterol Cholesterol in LDL mass conc 113 mg/dL Normal 0-130 [facility] Work Phone: Cholesterol in VLDL mass conc 19 mg/dL Normal 5-40 [facility] Work Phone: Cholesterol mass conc 186 mg/dL Normal [facility] Work Phone: Comment on above: <200 mg/dL Desirable 200-240 mg/dL Borderline >240 mg/dL High Risk Triglyceride mass conc 93 mg/dL Normal [facility] Work Phone: Comment on above: Serum Triglycerides Reference Interval Normal <150 mg/dL Borderline high 150 - 199 mg/dL High 200 - 499 mg/dL Very High > or = 500 mg/dL ROUTINE UAOrdered By: Mincing Machine Operator on 02-26-2008 Clarity (U) CLEAR Normal [facility] Work Phone: Color (U) YELLOW Normal [facility] Work Phone: ROUTINE UA SeeNote Normal [facility] Work Phone: Comment on above: Result: NEGATIVE ROUTINE UA CLEAR Normal [facility] Work Phone: ROUTINE UA YELLOW Normal [facility] Work Phone: ROUTINE UA 5.5 1 Normal 5.0-8.0 [facility] Work Phone: ROUTINE UA 1.020 1 Normal 1.002-1.030 [facility] Work Phone: ROUTINE UA 0.2 EU/dl Normal 0.2 - 1.0 [facility] Work Phone: TSHOrdered By: System Manage r on 02-26-2008 Thyrotropin Qn 2.01 {uIU/mL} Normal 0.34-4.82 Compreh ensive [facility] Work Phone: CREAT,SERUMOrdered By: Syste m Lead Clinical Research Coordinator on 12-07-2007 Creatinine mass conc 0.8 mg/dL Normal 0.6-1.0 Comp rehensive [facility] Work Phone: KOrdered By: Mincing Machine Operator on 12-07-2007 Potassium molar conc 4.4 mmol/L Normal 3.5-5.1 Comp rehensive [facility] Work Phone: HIP SINGLE VIEW,UNILATRALOrd ered By: Mincing Machine Operator on 10-08-2007 HIP SINGLE VIEW,UNILATRAL See Note Normal [facility] Work Phone: Comment on above: Exam Number: [id number] RIGHT HIP 2 VIEWS CLINICAL STATEMENTPersistent right hip pain and thigh pain. There is no fracture or bone lytic change. Joint space andsubchondral trabecular features at the hip are unremarkable.There is no erosion or surrounding soft tissue calcification.The visible portion of the right SI joint is unremarkable. IMPRESSIONNormal study. Reported By: EDMUNDO LÓPEZ M.D. COMP METABOLICOrdered By: stem Lead Clinical Research Coordinator on 08-01-2007 Albumin mass conc 3.5 g/dL Normal 3.4-5.0 Compreh [facility] Work Phone: Albumin/Globulin mass ratio 1.1 {RATIO} Normal 0.9-2.4 [facility] Work Phone: ALP enzyme act/vol 80 U/L Normal 50-136 [facility] Work Phone: ALT enzyme act/vol 40 [iU]/L Normal 30-65 [facility] Work Phone: Anion gap 3 molar conc 7 mmol/L Normal 5-15 [facility] Work Phone: Anion gap [Moles/Vol] 7 mmol/L Normal 5-15 [facility] Work Phone: AST enzyme act/vol 22 U/L Normal 15-37 [facility] Work Phone: Bilirubin mass conc 0.30 mg/dL Normal 0.00-1.00 Compr [facility] Internal Medicine Work Phone: Calcium mass conc 8.7 mg/dL Normal 8.5-10.1 Compreh [facility] Medicine Work Phone: Chloride molar conc 105 mmol/L Normal 98-107 Compr [facility] Medicine Work Phone: CO2 molar conc 26.9 mmol/L Normal 21.0-32.0 Comprehen sive [facility] Work Phone: Creatinine mass conc 0.8 mg/dL Normal 0.6-1.0 Comp rehensive [facility] Work Phone: Globulin (S) [Mass/Vol] 3.2 g/dL Normal 2.7-4.2 [facility] Work Phone: Globulin Calculated mass conc (S) 3.2 g/dL Normal 2.7-4.2 [facility] Work Phone: Glucose mass conc 87 mg/dL Normal 70-110 Compreh ensive [facility] Work Phone: Potassium molar conc 4.1 mmol/L Normal 3.5-5.1 Comp rehensive [facility] Work Phone: Protein mass conc 6.7 g/dL Normal 6.4-8.2 Compreh ensive [facility] Work Phone: Sodium molar conc 139 mmol/L Normal 136-145 Compreh ens[facility] Work Phone: Urea nitrogen mass conc 14 mg/dL Normal 7-18 [facility] Work Phone: Urea nitrogen/Creatinine mass ratio 17.5 {RATIO} Normal 10-20 [facility] Work Phone: UNILAT LT DIAG DIGITAL & CAD Ordered By: Mincing Machine Operator on 05-04-2007 UNILAT LT DIAG DIGITAL & CAD See Note Normal [facility] Work Phone: Comment on above: Exam Number: [id number] UNILATERAL LEFT DIAGNOSTIC MAMMOGRAPHY CLINICAL STATEMENTAbnormal mammogram. COMPARISONComparison is made to prior mammography of April 22, 2007. TECHNIQUEThe patient returns for additional views of the left breast. Rolledmedial and rolled lateral craniocaudal projections and spotcompression CC views were acquired. FINDINGSWith additional imaging, the density in question disperses and fadswith compression. Findings are felt to be secondary tosuperimposition of normal fibroglandular elements. No underlyingsuspicious mass lesion is shown. IMPRESSION1. No mammographic evidence for malignancy. The area in questionresolves with additional images.2. BIRADS code 1. Negative.3. Follow up with return to annual routine screening. A letter regarding these results has been sent to the patient. This interpretation was rendered by a radiologist certified underthe Mammography Quality Standards Act of 1992 (MQSA). The mammogramswere also examined with computer-aided detection software([place], [employer].). Reported By: MIKE GRIGSBY M.D. BILAT SCRN DIGITAL & CADOrde red By: Mincing Machine Operator on 04-22-2007 BILAT SCRN DIGITAL & CAD See Note Normal [facility] Work Phone: Comment on above: Exam Number: [id number] MAMMOGRAM, BILATERAL SCREENING DIGITAL AND CAD HISTORYRoutine screening. Full field digital images were obtained in mediolateral oblique andcraniocaudal projections. CAD images were reviewed. The current study is compared to the examinations of Maynd November 2005. There is moderate to severe extent of fibroglandular parenchymapresent. There is no skin thickening or retraction, architecturaldistortion, or cluster of suspicious microcalcifications. There humera small irregular density in the inner left breast in the craniocaudalprojection. This is not seen previously. For further evaluation,left craniocaudal spot compression view and left craniocaudal rollimages are recommended. IMPRESSIONThere is a small irregular density in the inner left breast not seenpreviously. Additional views are recommended. FINAL ASSESSMENTNeed additional imaging evaluation. BIRADS Category 0. A letter regarding these results has been sent to the patient. This interpretation was rendered by a radiologist certified under theMammography Quality Standards Act of 1992 (MQSA). The mammograms werealso examined with computer-aided detection software ([employer] Reported By: TERI MEDEIROS M.D. Thin prep Pap ([id number])Ordered By: Yoanna Tejada on 04-08-2007 Thin prep Pap ([id number]) PAPSMR Normal [facility] Work Phone: Comment on above: The Pap smear is a s creening test designed to aid in the detection ofpremalignant and malignant conditions of the uterine cervix. It is not adiagnostic procedure and should not be used as the sole means of detectingcervical cancer. Both false-positive and false-negative reports do occur. .The HPV DNA reflex criteria were not met with this specimen resulttherefore, no HPV testing was performed. . Source.............C ervical;EndocervicalLMP / Prev Treat...ISK=[id number]. of containers..01 CYTYC Thin Prep VialPATIENT NOT FASTINGClinical Information: ADD [id number] PERFORMED BY: [employer] [address] [id number] Thin prep Pap ([id number]) [facility] Normal [facility] Work Phone: Comment on above: NEGATIVE FOR INTRAEP ITHELIAL LESION AND MALIGNANCY.Satisfactory for evaluation. No endocervical component is identified.V72.31 ; Routine gynecological examinationJacob Juliana Ecdis N Navigation Operator (ASCP) Source.............C ervical;EndocervicalLMP / Prev Treat...BOP=[id number]. of containers..01 CYTYC Thin Prep VialPATIENT NOT FASTINGClinical Information: ADD [id number] PERFORMED BY: [facility] [address] [id number] Thin prep Pap ([id number]) . Normal [facility] Work Phone: Comment on above: Source.............C ervical;EndocervicalLMP / Prev Treat...FYY=[id number]. of containers..01 CYTYC Thin Prep VialPATIENT NOT FASTINGClinical Information: ADD [id number] PERFORMED BY: [facility] [address] [id number] FSH 4309Ordered By: Tali nunes on 03-22-2006 FSH 4309 17.5 m[iU]/mL Normal Comprehensi ve [facility] Medicine Work Phone: Comment on above: . Male Female 5th da y <0.2 - 4.6 <0.2 - 4.6 2 mo- 3 yrs. 0.2 - 2.7 1.4 - 9.2 4- 6 yrs. 0.2 - 2.7 0.4 - 6.6 7- 9 yrs. 0.2 - 2.7 0.4 - 5.0 10-11 yrs. 0.4 - 5.0 Not Estab 12-13 yrs. 0.4 - 6.6 Not Estab 14-15 yrs. 0.7 - 13.2 Not Estab >15 yrs. 1.4 - 18.1 See Below Female Follicular 2.5 - 10.2 Midcycle 3.4 - 33.4 Luteal 1.5 - 9.1 <0.2 Postmenopausal 23.0 - 116.3Performed At: [facility] [id number] [place], [place] [id number] Vital Signs Date Time Vital Sign Value Performing Clinician Facility 09-17-2024 06:59-0400 Body height 172.72 cm Katerin Cotton RADIO PERFORMER-C Work Phone: [facility] 09-17-2024 06:59-0400 Body mass index (BMI) [Ratio] 32.6 kg/m2 Katerin Cotton RADIO PERFORMER-C Work Phone: [facility] 09-17-2024 06:59-0400 Body weight 97.52 kg Katerin Cotton RADIO PERFORMER-C Work Phone: [facility] 09-17-2024 06:59-0400 Diastolic blood pressure 88 mm[Hg] Katerin Cotton RADIO PERFORMER-C Work Phone: [facility] 09-17-2024 06:59-0400 Heart rate 95 /min Katerin Cotton RADIO PERFORMER-C Work Phone: [facility] 09-17-2024 06:59-0400 Respiratory rate 18 /min Katerin Cotton RADIO PERFORMER-C Work Phone: [facility] 09-17-2024 06:59-0400 SaO2% (BldA) [Mass fraction] 100 % aKterin Cotton RADIO PERFORMER-C Work Phone: [facility] 09-17-2024 06:59-0400 Systolic blood pressure 126 mm[Hg] Katerin Cotton RADIO PERFORMER-C Work Phone: [facility] 03-17-2023 08:54-0500 Diastolic blood pressure 78 mm[Hg] RADIO PERFORMER-C Katerin Yury Work Phone: [facility] 03-17-2023 08:54-0500 Systolic blood pressure 115 mm[Hg] RADIO PERFORMER-C Katerin Yury Work Phone: [facility] 03-17-2023 08:31-0500 Body height 172.72 cm RADIO PERFORMER-C Katerin Yury Work Phone: [facility] 03-17-2023 08:31-0500 Body mass index (BMI) [Ratio] 32.8 kg/m2 RADIO PERFORMER-C Katerin Yury Work Phone: [facility] 03-17-2023 08:31-0500 Body weight 97.97 kg RADIO PERFORMER-C Katerin Yury Work Phone: [facility] 03-17-2023 08:31-0500 Heart rate 95 /min RADIO PERFORMER-C Katerin Yury Work Phone: [facility] 03-17-2023 08:31-0500 Respiratory rate 18 /min RADIO PERFORMER-C Katerin Yury Work Phone: [facility] 03-17-2023 08:31-0500 SaO2% (BldA) [Mass fraction] 99 % RADIO PERFORMER-C Katerin Yury Work Phone: [facility] 02-03-2023 08:44-0400 Body mass index (BMI) [Ratio] 32.8 kg/m2 RADIO PERFORMER-C Katerin Yury Work Phone: [facility] 02-03-2023 08:44-0400 Body weight 98.08 kg RADIO PERFORMER-C Katerin Yury Work Phone: [facility] 02-03-2023 08:44-0400 Diastolic blood pressure 84 mm[Hg] RADIO PERFORMER-C Katerin Yury Work Phone: [facility] 02-03-2023 08:44-0400 Systolic blood pressure 122 mm[Hg] RADIO PERFORMER-C Katerin Yury Work Phone: [facility] 01-01-2023 08:44-0400 Body height 170.81 cm Lakisha Slarb PROSTHETICS ASSISTANT [facility]; [facility] Work Phone: 01-01-2023 08:44-0400 Body mass index (BMI) [Ratio] 33.19 kg/m2 Lakisha Slarb PROSTHETICS ASSISTANT [facility]; [facility] Work Phone: 01-01-2023 08:44-0400 Body surface area Derived from formula 2.08 m2 Lakisha Slarb PROSTHETICS ASSISTANT [facility]; [facility] Work Phone: 01-01-2023 08:44-0400 Body temperature 98.1 [degF] Lakisha Slarb PROSTHETICS ASSISTANT [facility]; [facility] Work Phone: 01-01-2023 08:44-0400 Body weight 96.84 kg Lakisha Slarb PROSTHETICS ASSISTANT [facility]; [facility] Work Phone: 01-01-2023 08:44-0400 Diastolic blood pressure 78 mm[Hg] Lakisha Slarb PROSTHETICS ASSISTANT [facility]; [facility] Work Phone: 01-01-2023 08:44-0400 Heart rate 110 /min Lakisha Slarb PROSTHETICS ASSISTANT [facility]; [facility] Work Phone: 01-01-2023 08:44-0400 Respiratory rate 16 /min Lakisha Slarb PROSTHETICS ASSISTANT [facility]; [facility] Work Phone: 01-01-2023 08:44-0400 SaO2% (BldA) [Mass fraction] 97 % Lakisha Slarb PROSTHETICS ASSISTANT [facility]; [facility] Work Phone: 01-01-2023 08:44-0400 Systolic blood pressure 118 mm[Hg] Lakisha Slarb PROSTHETICS ASSISTANT [facility]; [facility] Work Phone: 11-15-2022 15:22-0400 Body height 172.72 cm LALITA Cotton Work Phone: [facility] 11-15-2022 15:22-0400 Body mass index (BMI) [Ratio] 32.6 kg/m2 RADIO PERFORMER-C Katerin Cotton Work Phone: [facility] 11-15-2022 15:22-0400 Body temperature 97.8 [degF] RADIO PERFORMER-C Katerin Cotton Work Phone: [facility] 11-15-2022 15:22-0400 Body weight 97.52 kg RADIO PERFORMER-C Katerin Cotton Work Phone: [facility] 11-15-2022 15:22-0400 Diastolic blood pressure 78 mm[Hg] RADIO PERFORMER-C Katerin Cotton Work Phone: [facility] 11-15-2022 15:22-0400 Heart rate 75 /min RADIO PERFORMER-C Katerin Cotton Work Phone: [facility] 11-15-2022 15:22-0400 Respiratory rate 16 /min RADIO PERFORMER-C Katerin Cotton Work Phone: [facility] 11-15-2022 15:22-0400 SaO2% (BldA) [Mass fraction] 97 % RADIO PERFORMER-C Katerin Cotton Work Phone: [facility] 11-15-2022 15:22-0400 Systolic blood pressure 108 mm[Hg] RADIO PERFORMER-C Katerin Cotton Work Phone: [facility] 06-18-2022 10:40-0500 Body height 170.81 cm [facility]; [facility] Work Phone: 06-18-2022 10:40-0500 Body mass index (BMI) [Ratio] 33.19 kg/m2 [facility]; [facility] Work Phone: 06-18-2022 10:40-0500 Body surface area Derived from formula 2.08 m2 [facility]; [facility] Work Phone: 06-18-2022 10:40-0500 Body temperature 97 [degF] [facility]; [facility] Work Phone: 06-18-2022 10:40-0500 Body weight 96.84 kg [facility]; [facility] Work Phone: 06-18-2022 10:40-0500 Diastolic blood pressure 82 mm[Hg] [facility]; [facility] Work Phone: Comment on above: Patient Position: Sitting; Cuff Location : Left Arm; Cuff Size: Standard 06-18-2022 10:40-0500 Heart rate 107 /min [facility]; [facility] Work Phone: Comment on above: Pattern: Regular 06-18-2022 10:40-0500 Respiratory rate 16 /min [facility]; [facility] Work Phone: Comment on above: Pattern: Unlabored 06-18-2022 10:40-0500 SaO2% (BldA) [Mass fraction] 94 % [facility]; [facility] Work Phone: Comment on above: Room air 06-18-2022 10:40-0500 Systolic blood pressure 120 mm[Hg] [facility]; [facility] Work Phone: Comment on above: Patient Position: Sitting; Cuff Location : Left Arm; Cuff Size: Standard 03-12-2022 14:38-0500 Body height 170.81 cm Lakisha Engel [facility]; [facility] Work Phone: 03-12-2022 14:38-0500 Body mass index (BMI) [Ratio] 32.65 kg/m2 Lakisha Slarb [facility]; [facility] Work Phone: 03-12-2022 14:38-0500 Body surface area Derived from formula 2.07 m2 Lakisha Slarb [facility]; [facility] Work Phone: 03-12-2022 14:38-0500 Body temperature 97.9 [degF] Lakisha Slarb [facility]; [facility] Work Phone: 03-12-2022 14:38-0500 Body weight 95.26 kg Lakisha Slarb PROSTHETICS ASSISTANT [facility]; [facility] Work Phone: 03-12-2022 14:38-0500 Diastolic blood pressure 68 mm[Hg] Lakisha Slarb PROSTHETICS ASSISTANT [facility]; [facility] Work Phone: Comment on above: Patient Position: Sitting; Cuff Location : Left Arm; Cuff Size: Standard 03-12-2022 14:38-0500 Heart rate 101 /min Lakisha Slarb PROSTHETICS ASSISTANT [facility]; [facility] Work Phone: Comment on above: Pattern: Regular 03-12-2022 14:38-0500 Respiratory rate 16 /min Lakisha Slarb PROSTHETICS ASSISTANT [facility]; [facility] Work Phone: Comment on above: Pattern: Unlabored 03-12-2022 14:38-0500 SaO2% (BldA) [Mass fraction] 99 % Lakisha Slarb PROSTHETICS ASSISTANT [facility]; [facility] Work Phone: Comment on above: Room air 03-12-2022 14:38-0500 Systolic blood pressure 110 mm[Hg] Lakisha Slarb PROSTHETICS ASSISTANT [facility]; [facility] Work Phone: Comment on above: Patient Position: Sitting; Cuff Location : Left Arm; Cuff Size: Standard 12-18-2021 07:16-0400 Body height 172.72 cm RADIO PERFORMER-C Hortencia Flores RADIO PERFORMER Work Phone: [facility] Work Phone: 12-18-2021 07:16-0400 Body mass index (BMI) [Ratio] 32.1 kg/m2 RADIO PERFORMER-C Hortencia Flores RADIO PERFORMER Work Phone: [facility] Work Phone: 12-18-2021 07:16-0400 Body weight 95.7 kg RADIO PERFORMER-C Hortencia Flores RADIO PERFORMER Work Phone: [facility] Work Phone: 12-18-2021 07:16-0400 Diastolic blood pressure 89 mm[Hg] RADIO PERFORMER-C Hortencia Flores RADIO PERFORMER Work Phone: [facility] Work Phone: 12-18-2021 07:16-0400 Heart rate 106 /min RADIO PERFORMER-C Hortencia Flores RADIO PERFORMER Work Phone: [facility] Work Phone: 12-18-2021 07:16-0400 Respiratory rate 16 /min RADIO PERFORMER-C Hortencia Flores RADIO PERFORMER Work Phone: [facility] Work Phone: 12-18-2021 07:16-0400 SaO2% (BldA) [Mass fraction] 99 % RADIO PERFORMER-C Hortencia Flores RADIO PERFORMER Work Phone: [facility] Work Phone: 12-18-2021 07:16-0400 Systolic blood pressure 129 mm[Hg] RADIO PERFORMER-C Hortencia Flores RADIO PERFORMER Work Phone: [facility] Work Phone: 09-01-2020 07:05-0400 Body height 170.81 cm Blue Babb PROSTHETICS ASSISTANT [facility]; [facility] Work Phone: 09-01-2020 07:05-0400 Body mass index (BMI) [Ratio] 30.47 kg/m2 Blue Babb PROSTHETICS ASSISTANT [facility]; [facility] Work Phone: 09-01-2020 07:05-0400 Body surface area Derived from formula 2.01 m2 Blue Babb PROSTHETICS ASSISTANT [facility]; [facility] Work Phone: 09-01-2020 07:05-0400 Body weight 88.91 kg Blue Babb PROSTHETICS ASSISTANT [facility]; [facility] Work Phone: 08-21-2020 15:28-0400 Body height 170.81 cm Blue Babb PROSTHETICS ASSISTANT [facility]; [facility] Work Phone: 08-21-2020 15:28-0400 Body mass index (BMI) [Ratio] 30.47 kg/m2 Blue Babb LPN [facility]; [facility] Work Phone: 08-21-2020 15:28-0400 Body surface area Derived from formula 2.01 m2 Blue Babb LPN [facility]; [facility] Work Phone: 08-21-2020 15:28-0400 Body temperature 97.1 [degF] Blue Babb LPN [facility]; [facility] Work Phone: Comment on above: Method: Infrared 08-21-2020 15:28-0400 Body weight 88.91 kg Blue Babb LPN [facility]; [facility] Work Phone: 08-21-2020 15:28-0400 Diastolic blood pressure 76 mm[Hg] Blue Babb LPN [facility]; [facility] Work Phone: Comment on above: Patient Position: Sitting; Cuff Location : Left Arm; Cuff Size: Standard 08-21-2020 15:28-0400 Heart rate 74 /min Blue Babb LPN [facility]; [facility] Work Phone: Comment on above: Pattern: Regular 08-21-2020 15:28-0400 Respiratory rate 18 /min Blue Babb LPN [facility]; [facility] Work Phone: Comment on above: Pattern: Unlabored 08-21-2020 15:28-0400 SaO2% (BldA) [Mass fraction] 98 % Blue Babb LPN [facility]; [facility] Work Phone: Comment on above: Room air 08-21-2020 15:28-0400 Systolic blood pressure 120 mm[Hg] Blue Babb LPN [facility]; [facility] Work Phone: Comment on above: Patient Position: Sitting; Cuff Location : Left Arm; Cuff Size: Standard 07-07-2020 09:38-0400 BMI (Body Mass Index) 30.47 kg/m2 Hortencia Flores CNP Work Phone: [facility]; [facility] Work Phone: Comment on above: Repeat BP 126/69 70 07-07-2020 09:38-0400 Body weight 88.91 kg Hortencia Flores CNP Work Phone: [facility]; [facility] Work Phone: Comment on above: Repeat BP 126/69 70 07-07-2020 09:38-0400 BP Diastolic 109 mm[Hg] Hortencia Flores BIOLOGICS SPECIALIST Work Phone: [facility]; [facility] Work Phone: Comment on above: Patient Position: Sitting; Cuff Location : Left Arm; Cuff Size: Standard Repeat BP 126/69 70 07-07-2020 09:38-0400 BP Systolic 150 mm[Hg] Hortencia Flores BIOLOGICS SPECIALIST Work Phone: [facility]; [facility] Work Phone: Comment on above: Patient Position: Sitting; Cuff Location : Left Arm; Cuff Size: Standard Repeat BP 126/69 70 07-07-2020 09:38-0400 BSA (Body Surface Area) 2.01 m2 Hortencia Flores BIOLOGICS SPECIALIST Work Phone: [facility]; [facility] Work Phone: Comment on above: Repeat BP 126/69 70 07-07-2020 09:38-0400 Height 170.81 cm Hortencia Flores BIOLOGICS SPECIALIST Work Phone: [facility]; [facility] Work Phone: Comment on above: Repeat BP 126/69 70 07-07-2020 09:38-0400 Pulse (Heart Rate) 103 /min Hortencia Flores BIOLOGICS SPECIALIST Work Phone: [facility]; [facility] Work Phone: Comment on above: Pattern: Regular Repeat BP 126/69 70 06-26-2020 14:35-0400 BMI (Body Mass Index) 30.47 kg/m2 [facility]; [facility] Work Phone: 06-26-2020 14:35-0400 Body weight 88.91 kg Blue Babb LPN [facility]; [facility] Work Phone: 06-26-2020 14:35-0400 BSA (Body Surface Area) 2.01 m2 Blue Babb LPN [facility]; [facility] Work Phone: 06-26-2020 14:35-0400 Height 170.81 cm Blue Babb LPN [facility]; [facility] Work Phone: 04-18-2020 08:11-0500 BMI (Body Mass Index) 30.47 kg/m2 Hortencia Appiaha BIOLOGICS SPECIALIST Work Phone: [facility]; [facility] Work Phone: 04-18-2020 08:11-0500 Body weight 88.91 kg Hortencia Appiaha BIOLOGICS SPECIALIST Work Phone: [facility]; [facility] Work Phone: 04-18-2020 08:11-0500 BSA (Body Surface Area) 2.01 m2 Hortencia Appiaha BIOLOGICS SPECIALIST Work Phone: [facility]; [facility] Work Phone: 04-18-2020 08:11-0500 Height 170.81 cm Hortencia Flores BIOLOGICS SPECIALIST Work Phone: [facility]; [facility] Work Phone: 04-18-2020 08:11-0500 Pulse (Heart Rate) 84 /min Hortencia Flores BIOLOGICS SPECIALIST Work Phone: [facility]; [facility] Work Phone: Comment on above: Pattern: Regular 04-11-2020 08:09-0500 BMI (Body Mass Index) 30.78 kg/m2 Blue Babb LPN [facility]; [facility] Work Phone: 04-11-2020 08:09-0500 Body Temperature 97.4 [degF] Blue Babb LPN [facility]; [facility] Work Phone: Comment on above: Method: Infrared 04-11-2020 08:09-0500 Body weight 89.82 kg Blue Babb LPN [facility]; [facility] Work Phone: 04-11-2020 08:09-0500 BP Diastolic 78 mm[Hg] Blue Babb LPN [facility]; [facility] Work Phone: Comment on above: Patient Position: Sitting; Cuff Location : Left Arm; Cuff Size: Standard 04-11-2020 08:09-0500 BP Systolic 124 mm[Hg] Blue Babb LPN [facility]; [facility] Work Phone: Comment on above: Patient Position: Sitting; Cuff Location : Left Arm; Cuff Size: Standard 04-11-2020 08:09-0500 BSA (Body Surface Area) 2.02 m2 Blue Babb LPN [facility]; [facility] Work Phone: 04-11-2020 08:09-0500 Height 170.81 cm Blue Babb LPN [facility]; [facility] Work Phone: 04-11-2020 08:09-0500 Pulse (Heart Rate) 106 /min Blue Babb LPN [facility]; [facility] Work Phone: Comment on above: Pattern: Regular 04-11-2020 08:09-0500 Pulse Oximetry 99 % Hortencia Flores [facility]; [facility] Work Phone: Comment on above: Room air 04-11-2020 08:09-0500 Respiratory Rate 16 /min Blue Babb LPN [facility]; [facility] Work Phone: Comment on above: Pattern: Unlabored 04-11-2020 08:09-0500 SaO2% (BldA) [Mass fraction] 99 % Blue Babb LPN [facility]; [facility] Work Phone: Comment on above: Room air 08-05-2018 12:12-0400 BMI (Body Mass Index) 30.39 kg/m2 Blue Babb LPN [facility] Work Phone: 08-05-2018 12:12-0400 Body Temperature 98.3 [degF] Blue Babb LPN [facility] Work Phone: Comment on above: Method: Temporal 08-05-2018 12:12-0400 Body weight 88.68 kg Blue Babb LUCILA [facility] Work Phone: 08-05-2018 12:12-0400 BP Diastolic 80 mm[Hg] Blue Babb LUCILA [facility] Work Phone: Comment on above: Patient Position: Sitting; Cuff Location : Left Arm; Cuff Size: Standard 08-05-2018 12:12-0400 BP Systolic 122 mm[Hg] Blue Babb LUICLA [facility] Work Phone: Comment on above: Patient Position: Sitting; Cuff Location : Left Arm; Cuff Size: Standard 08-05-2018 12:12-0400 BSA (Body Surface Area) 2.01 m2 Blue Skinny GAYTAN [facility] Work Phone: 08-05-2018 12:12-0400 Height 170.81 cm Blue Skinny GAYTAN [facility] Work Phone: 08-05-2018 12:12-0400 Pulse (Heart Rate) 91 /min Blue Babb LUCILA [facility] Work Phone: Comment on above: Pattern: Regular 08-05-2018 12:12-0400 Pulse Oximetry 99 % Hortencia Salazardeemariya [facility] Work Phone: Comment on above: Room air 08-05-2018 12:12-0400 Respiratory Rate 16 /min Blue Babb LUCILA [facility] Work Phone: Comment on above: Pattern: Unlabored 08-05-2018 12:12-0400 SaO2% (BldA) [Mass fraction] 99 % Blue Babb LPN [facility]; [facility] Work Phone: Comment on above: Room air 08-05-2018 12:12-0400 Weight 88.68 kg Hortencia Flores [facility] Work Phone: 12-01-2017 09:00-0400 BMI (Body Mass Index) 30.39 kg/m2 Anna Monzon Comprehens [facility] Work Phone: 12-01-2017 09:00-0400 Body Temperature 97 [degF] Anna Monzon [facility] Work Phone: Comment on above: Method: Temporal 08-20-2018 09:00-0400 Body weight 88.68 kg Anna Monzon [facility] Work Phone: 12-01-2017 09:00-0400 BP Diastolic 68 mm[Hg] Anna Monzon [facility] Work Phone: Comment on above: Patient Position: Sitting; Cuff Location : Left Arm; Cuff Size: Standard 12-01-2017 09:00-0400 BP Systolic 104 mm[Hg] Anna Monzon [facility] Work Phone: Comment on above: Patient Position: Sitting; Cuff Location : Left Arm; Cuff Size: Standard 12-01-2017 09:00-0400 BSA (Body Surface Area) 2.01 m2 Anna Monzon [facility] Work Phone: 12-01-2017 09:00-0400 Height 170.81 cm Anna Monzon [facility] Work Phone: 12-01-2017 09:00-0400 Pulse (Heart Rate) 106 /min Anna Monzon [facility] Work Phone: Comment on above: Pattern: Regular 12-01-2017 09:00-0400 Pulse Oximetry 98 % Hortencia Flores [facility] Work Phone: Comment on above: Room air 12-01-2017 09:00-0400 Respiratory Rate 18 /min Anna Monzon [facility] Work Phone: Comment on above: Pattern: Unlabored 12-01-2017 09:00-0400 SaO2% (BldA) [Mass fraction] 98 % Anna Monzon [facility]; [facility] Work Phone: Comment on above: Room air 12-01-2017 09:00-0400 Weight 88.68 kg Hortencia Flores [facility] Work Phone: 09-26-2017 08:43-0400 BMI (Body Mass Index) 30.39 kg/m2 Lakisha Engel LPN [facility] Work Phone: 09-26-2017 08:43-0400 Body Temperature 97.9 [degF] Lakisha Slarb PROSTHETICS ASSISTANT [facility] Work Phone: 09-26-2017 08:43-0400 Body weight 88.68 kg Lakisha Mckinnonrb PROSTHETICS ASSISTANT [facility] Work Phone: 09-26-2017 08:43-0400 BP Diastolic 70 mm[Hg] Lakisha Slarb PROSTHETICS ASSISTANT [facility] Work Phone: Comment on above: Patient Position: Sitting; Cuff Location : Left Arm; Cuff Size: Standard 09-26-2017 08:43-0400 BP Systolic 102 mm[Hg] Lakisha Slarb PROSTHETICS ASSISTANT [facility] Work Phone: Comment on above: Patient Position: Sitting; Cuff Location : Left Arm; Cuff Size: Standard 09-26-2017 08:43-0400 BSA (Body Surface Area) 2.01 m2 Lakisha Inorb PROSTHETICS ASSISTANT [facility] Work Phone: 09-26-2017 08:43-0400 Height 170.81 cm Lakisha Inorb PROSTHETICS ASSISTANT [facility] Work Phone: 09-26-2017 08:43-0400 Pulse (Heart Rate) 83 /min Lakisha Inorb PROSTHETICS ASSISTANT [facility] Work Phone: Comment on above: Pattern: Regular 09-26-2017 08:43-0400 Pulse Oximetry 93 % Hortencia Flores [facility] Work Phone: Comment on above: Room air 09-26-2017 08:43-0400 Respiratory Rate 18 /min Lakisha Inorb PROSTHETICS ASSISTANT [facility] Work Phone: Comment on above: Pattern: Unlabored 09-26-2017 08:43-0400 SaO2% (BldA) [Mass fraction] 93 % Lakisha Slarb PROSTHETICS ASSISTANT [facility]; [facility] Work Phone: Comment on above: Room air 09-26-2017 08:43-0400 Weight 88.68 kg Hortencia Flores [facility] Work Phone: 06-06-2017 08:15-0500 BMI (Body Mass Index) 29.89 kg/m2 Lakisha Slarb PROSTHETICS ASSISTANT [facility] Work Phone: 06-06-2017 08:15-0500 Body Temperature 97.4 [degF] Lakisha Inorb PROSTHETICS ASSISTANT [facility] Work Phone: 06-06-2017 08:15-0500 Body weight 87.2 kg Lakisha Mckinnonrb PROSTHETICS ASSISTANT [facility] Work Phone: 06-06-2017 08:15-0500 BP Diastolic 80 mm[Hg] Lakisha Slarb PROSTHETICS ASSISTANT [facility] Work Phone: Comment on above: Patient Position: Sitting; Cuff Location : Left Arm; Cuff Size: Standard 06-06-2017 08:15-0500 BP Systolic 114 mm[Hg] Lakisha Slarb PROSTHETICS ASSISTANT [facility] Work Phone: Comment on above: Patient Position: Sitting; Cuff Location : Left Arm; Cuff Size: Standard 06-06-2017 08:15-0500 BSA (Body Surface Area) 1.99 m2 Lakisha Inorb PROSTHETICS ASSISTANT [facility] Work Phone: 06-06-2017 08:15-0500 Height 170.81 cm Lakisha Inorb PROSTHETICS ASSISTANT [facility] Work Phone: 06-06-2017 08:15-0500 Pulse (Heart Rate) 110 /min Lakisha Engel PROSTHETICS ASSISTANT [facility] Work Phone: Comment on above: Pattern: Regular 06-06-2017 08:15-0500 Pulse Oximetry 99 % Hortencia Flores [facility] Work Phone: Comment on above: Room air 06-06-2017 08:15-0500 Respiratory Rate 17 /min Lakisha Engel PROSTHETICS ASSISTANT [facility] Work Phone: Comment on above: Pattern: Unlabored 06-06-2017 08:15-0500 SaO2% (BldA) [Mass fraction] 99 % Lakisha Slarb PROSTHETICS ASSISTANT [facility]; [facility] Work Phone: Comment on above: Room air 06-06-2017 08:15-0500 Weight 87.2 kg Hortencia Flores [facility] Work Phone: 02-14-2017 10:58-0400 BMI (Body Mass Index) 29.85 kg/m2 Lakisha Slarb PROSTHETICS ASSISTANT [facility] Work Phone: 02-14-2017 10:58-0400 Body Temperature 97.7 [degF] Lakisha Slarb PROSTHETICS ASSISTANT [facility] Work Phone: 02-14-2017 10:58-0400 Body weight 87.09 kg Lakisha Slarb PROSTHETICS ASSISTANT [facility] Work Phone: 02-14-2017 10:58-0400 BP Diastolic 66 mm[Hg] Lakisha Slarb PROSTHETICS ASSISTANT [facility] Work Phone: Comment on above: Patient Position: Sitting; Cuff Location : Left Arm; Cuff Size: Standard 02-14-2017 10:58-0400 BP Systolic 122 mm[Hg] Lakisha Slarb PROSTHETICS ASSISTANT [facility] Work Phone: Comment on above: Patient Position: Sitting; Cuff Location : Left Arm; Cuff Size: Standard 02-14-2017 10:58-0400 BSA (Body Surface Area) 1.99 m2 Lakisha Slarb PROSTHETICS ASSISTANT [facility] Work Phone: 02-14-2017 10:58-0400 Height 170.81 cm Lakisha Slarb PROSTHETICS ASSISTANT [facility] Work Phone: 02-14-2017 10:58-0400 Pulse (Heart Rate) 79 /min Lakisha Slarb PROSTHETICS ASSISTANT Comprehens[facility] e [facility] Work Phone: Comment on above: Pattern: Regular 02-14-2017 10:58-0400 Pulse Oximetry 95 % [facility] Work Phone: Comment on above: Room air 02-14-2017 10:58-0400 Respiratory Rate 17 /min Lakisha Slarb PROSTHETICS ASSISTANT [facility] Work Phone: Comment on above: Pattern: Unlabored 02-14-2017 10:58-0400 SaO2% (BldA) [Mass fraction] 95 % Lakisha Slarb PROSTHETICS ASSISTANT [facility]; [facility] Work Phone: Comment on above: Room air 02-14-2017 10:58-0400 Weight 87.09 kg Hortencia Flores [facility] Work Phone: 01-24-2017 10:50-0400 BMI (Body Mass Index) 29.71 kg/m2 Leatha Babb [facility] Internal Medicine Work Phone: 01-24-2017 10:50-0400 Body Temperature 98 [degF] Leatha Skinny [facility] Internal Medicine Work Phone: 01-24-2017 10:50-0400 Body weight 86.69 kg Leatha Skinny [facility] Internal Medicine Work Phone: 01-24-2017 10:50-0400 BP Diastolic 94 mm[Hg] Leatha Skinny [facility] Internal Medicine Work Phone: Comment on above: Patient Position: Sitting; Cuff Location : Left Arm; Cuff Size: Standard 01-24-2017 10:50-0400 BP Systolic 126 mm[Hg] Leatha Skinny [facility] Internal Medicine Work Phone: Comment on above: Patient Position: Sitting; Cuff Location : Left Arm; Cuff Size: Standard 01-24-2017 10:50-0400 BSA (Body Surface Area) 1.99 m2 Leatha Skinny [facility] Internal Medicine Work Phone: 01-24-2017 10:50-0400 Height 170.81 cm Leatha [facility] Internal Medicine Work Phone: 01-24-2017 10:50-0400 Pulse (Heart Rate) 85 /min Leatha Skinny [facility] Internal Medicine Work Phone: Comment on above: Pattern: Regular 01-24-2017 10:50-0400 Pulse Oximetry 100 % Hortencia Flores [facility] Internal Medicine Work Phone: Comment on above: Room air 01-24-2017 10:50-0400 Respiratory Rate 17 /min Leatha Babb [facility] Internal Medicine Work Phone: Comment on above: Pattern: Unlabored 01-24-2017 10:50-0400 SaO2% (BldA) [Mass fraction] 100 % Leatha Babb [facility] Internal Medicine; [facility] Work Phone: Comment on above: Room air 01-24-2017 10:50-0400 Weight 86.69 kg Hortencia Flores [facility] Internal Medicine Work Phone: 04-26-2016 12:00-0500 BMI (Body Mass Index) 28.76 kg/m2 Lakisha Engel PROSTHETICS ASSISTANT Comprehen sive Internal Medicine Work Phone: 04-26-2016 12:00-0500 Body Temperature 97.8 [degF] Lakisha Slamichael MARINN [facility] Work Phone: 04-26-2016 12:00-0500 Body weight 83.92 kg Lakisha Engel PROSTHETICS ASSISTANT [facility] Work Phone: 04-26-2016 12:00-0500 BP Diastolic 76 mm[Hg] Lakisha Engel PROSTHETICS ASSISTANT [facility] Work Phone: Comment on above: Patient Position: Sitting; Cuff Location : Left Arm; Cuff Size: Standard 04-26-2016 12:00-0500 BP Systolic 118 mm[Hg] Lakisha Slamichael MARINN [facility] Work Phone: Comment on above: Patient Position: Sitting; Cuff Location : Left Arm; Cuff Size: Standard 04-26-2016 12:00-0500 BSA (Body Surface Area) 1.96 m2 Lakisha Engel PROSTHETICS ASSISTANT [facility] Work Phone: 04-26-2016 12:00-0500 Height 170.81 cm Lakisha Slamichael MARINN [facility] Work Phone: 04-26-2016 12:00-0500 Pulse (Heart Rate) 119 /min Lakishamariya Engel PROSTHETICS ASSISTANT Comprehensiv e Internal Medicine Work Phone: Comment on above: Pattern: Regular 04-26-2016 12:00-0500 Pulse Oximetry 97 % Hortencia Flores [facility] Internal Medicine Work Phone: Comment on above: Room air 04-26-2016 12:00-0500 Respiratory Rate 16 /min Lakisha Engel PROSTHETICS ASSISTANT [facility] Work Phone: Comment on above: Pattern: Unlabored 04-26-2016 12:00-0500 SaO2% (BldA) [Mass fraction] 97 % Lakisha Engel PROSTHETICS ASSISTANT [facility]; [facility] Work Phone: Comment on above: Room air 04-26-2016 12:00-0500 Weight 83.92 kg Hortencia Flores [facility] Work Phone: 03-15-2016 07:55-0500 BMI (Body Mass Index) 29.38 kg/m2 Karlene Suarez RN [facility] Internal Medicine Work Phone: 03-15-2016 07:55-0500 Body Temperature 97.5 [degF] Karlene Suarez RN [facility] Work Phone: Comment on above: Method: Temporal 03-15-2016 07:55-0500 Body weight 85.73 kg Karlene Suarez RN [facility] Work Phone: 03-15-2016 07:55-0500 BP Diastolic 78 mm[Hg] Karlene Suarez RN [facility] Work Phone: Comment on above: Patient Position: Sitting; Cuff Location : Left Arm; Cuff Size: Standard 03-15-2016 07:55-0500 BP Systolic 130 mm[Hg] Karlene Suarez RN [facility] Work Phone: Comment on above: Patient Position: Sitting; Cuff Location : Left Arm; Cuff Size: Standard 03-15-2016 07:55-0500 BSA (Body Surface Area) 1.98 m2 Karlene Suarez RN [facility] Work Phone: 03-15-2016 07:55-0500 Height 170.81 cm Karlene Suarez RN [facility] Work Phone: 03-15-2016 07:55-0500 Pulse (Heart Rate) 16 /min Karlene Suarez RN [facility] Work Phone: Comment on above: Pattern: Regular 03-15-2016 07:55-0500 Pulse Oximetry 99 % Hortencia Flores [facility] Work Phone: Comment on above: Room air 03-15-2016 07:55-0500 Respiratory Rate 97 /min Karlene Suarez RN [facility] Work Phone: Comment on above: Pattern: Unlabored 03-15-2016 07:55-0500 SaO2% (BldA) [Mass fraction] 99 % Karlene Suarez RN [facility]; [facility] Work Phone: Comment on above: Room air 03-15-2016 07:55-0500 Weight 85.73 kg Hortencia Flores [facility] Work Phone: 03-01-2016 13:31-0500 BMI (Body Mass Index) 29.38 kg/m2 Lakisha Slarb PROSTHETICS ASSISTANT Comprehen sive Internal Medicine Work Phone: 03-01-2016 13:31-0500 Body Temperature 98.2 [degF] Lakisha Slarb PROSTHETICS ASSISTANT [facility] Work Phone: 03-01-2016 13:31-0500 Body weight 85.73 kg Lakisha Slarb PROSTHETICS ASSISTANT [facility] Work Phone: 03-01-2016 13:31-0500 BP Diastolic 78 mm[Hg] Lakisha Slarb PROSTHETICS ASSISTANT [facility] Work Phone: Comment on above: Patient Position: Sitting; Cuff Location : Left Arm; Cuff Size: Standard 03-01-2016 13:31-0500 BP Systolic 122 mm[Hg] Lakisha Slarb PROSTHETICS ASSISTANT [facility] Work Phone: Comment on above: Patient Position: Sitting; Cuff Location : Left Arm; Cuff Size: Standard 03-01-2016 13:31-0500 BSA (Body Surface Area) 1.98 m2 Lakisha Slarb PROSTHETICS ASSISTANT [facility] Work Phone: 03-01-2016 13:31-0500 Height 170.81 cm Lakisha Slarb PROSTHETICS ASSISTANT [facility] Work Phone: 03-01-2016 13:31-0500 Pulse (Heart Rate) 76 /min Lakisha Slarb PROSTHETICS ASSISTANT Comprehensiv e Internal Medicine Work Phone: Comment on above: Pattern: Regular 03-01-2016 13:31-0500 Pulse Oximetry 99 % Hortencia Flores [facility] Internal Medicine Work Phone: Comment on above: Room air 03-01-2016 13:31-0500 Respiratory Rate 17 /min Lakisha Engel LPN [facility] Work Phone: Comment on above: Pattern: Unlabored 03-01-2016 13:31-0500 SaO2% (BldA) [Mass fraction] 99 % aLkisha Engel PROSTHETICS ASSISTANT [facility] Internal Medicine; [facility] Work Phone: Comment on above: Room air 03-01-2016 13:31-0500 Weight 85.73 kg Hortencia Flores [facility] Internal Medicine Work Phone: 11-24-2015 07:49-0400 BMI (Body Mass Index) 29.38 kg/m2 [facility] Internal Medicine Work Phone: 11-24-2015 07:49-0400 Body Temperature 98 [degF] [facility] Internal Medicine Work Phone: 11-24-2015 07:49-0400 Body weight 85.73 kg [facility] Internal Medicine Work Phone: 11-24-2015 07:49-0400 BP Diastolic 64 mm[Hg] [facility] Internal Medicine Work Phone: Comment on above: Patient Position: Sitting; Cuff Location : Left Arm; Cuff Size: Standard 11-24-2015 07:49-0400 BP Systolic 116 mm[Hg] [facility] Internal Medicine Work Phone: Comment on above: Patient Position: Sitting; Cuff Location : Left Arm; Cuff Size: Standard 11-24-2015 07:49-0400 BSA (Body Surface Area) 1.98 m2 [facility] Internal Medicine Work Phone: 11-24-2015 07:49-0400 Height 170.81 cm [facility] Internal Medicine Work Phone: 11-24-2015 07:49-0400 Pulse (Heart Rate) 88 /min [facility] Internal Medicine Work Phone: Comment on above: Pattern: Regular 11-24-2015 07:49-0400 Pulse Oximetry 98 % Hortencia Flores [facility] Internal Medicine Work Phone: Comment on above: Room air 11-24-2015 07:49-0400 Respiratory Rate 18 /min Natanael Thomas [facility] Internal Medicine Work Phone: Comment on above: Pattern: Unlabored 11-24-2015 07:49-0400 SaO2% (BldA) [Mass fraction] 98 % Natanael Thomas [facility] Internal Medicine; [facility] Work Phone: Comment on above: Room air 11-24-2015 07:49-0400 Weight 85.73 kg Hortnecia Flores [facility] Work Phone: 10-06-2015 09:42-0400 BMI (Body Mass Index) 29.85 kg/m2 Lakisha Slarb PROSTHETICS ASSISTANT Comprehen sive Internal Medicine Work Phone: 10-06-2015 09:42-0400 Body Temperature 98 [degF] Lakisha Slarb PROSTHETICS ASSISTANT [facility] Work Phone: 10-06-2015 09:42-0400 Body weight 87.09 kg Lakisha Slarb PROSTHETICS ASSISTANT [facility] Work Phone: 10-06-2015 09:42-0400 BP Diastolic 82 mm[Hg] Lakisha Slarb PROSTHETICS ASSISTANT [facility] Work Phone: Comment on above: Patient Position: Sitting; Cuff Location : Left Arm; Cuff Size: Standard 10-06-2015 09:42-0400 BP Systolic 118 mm[Hg] Lakisha Slarb PROSTHETICS ASSISTANT [facility] Work Phone: Comment on above: Patient Position: Sitting; Cuff Location : Left Arm; Cuff Size: Standard 10-06-2015 09:42-0400 BSA (Body Surface Area) 1.99 m2 Lakisha Slarb PROSTHETICS ASSISTANT [facility] Work Phone: 10-06-2015 09:42-0400 Height 170.81 cm Lakisha Slarb PROSTHETICS ASSISTANT [facility] Work Phone: 10-06-2015 09:42-0400 Pulse (Heart Rate) 76 /min Lakisha Slarb PROSTHETICS ASSISTANT Comprehensiv e Internal Medicine Work Phone: Comment on above: Pattern: Regular 10-06-2015 09:42-0400 Pulse Oximetry 99 % Hortencia Flores [facility] Internal Medicine Work Phone: Comment on above: Room air 10-06-2015 09:42-0400 Respiratory Rate 18 /min [facility] Work Phone: Comment on above: Pattern: Unlabored 10-06-2015 09:42-0400 SaO2% (BldA) [Mass fraction] 99 % Lakisha Engel LPN [facility] Internal Medicine; [facility] Internal Medicine Work Phone: Comment on above: Room air 10-06-2015 09:42-0400 Weight 87.09 kg Hortencia Flores [facility] Internal Medicine Work Phone: 06-07-2015 13:16-0500 BMI (Body Mass Index) 29.85 kg/m2 [facility] Work Phone: 06-07-2015 13:16-0500 Body Temperature 98.5 [degF] [facility] Work Phone: Comment on above: Method: Oral 06-07-2015 13:16-0500 Body weight 87.09 kg [facility] Work Phone: 06-07-2015 13:16-0500 BP Diastolic 72 mm[Hg] [facility] Work Phone: Comment on above: Patient Position: Sitting; Cuff Location : Left Arm; Cuff Size: Standard 06-07-2015 13:16-0500 BP Systolic 118 mm[Hg] [facility] Work Phone: Comment on above: Patient Position: Sitting; Cuff Location : Left Arm; Cuff Size: Standard 06-07-2015 13:16-0500 BSA (Body Surface Area) 1.99 m2 [facility] Work Phone: 06-07-2015 13:16-0500 Height 170.81 cm [facility] Work Phone: 06-07-2015 13:16-0500 Pulse (Heart Rate) 81 /min Susana Vázquez [facility] Medicine Work Phone: Comment on above: Pattern: Regular 06-07-2015 13:16-0500 Respiratory Rate 16 /min Susana Vázquez [facility] Medicine Work Phone: Comment on above: Pattern: Unlabored 06-07-2015 13:16-0500 Weight 87.09 kg Hortencia Flores [facility] Work Phone: 05-15-2015 15:20-0500 BMI (Body Mass Index) 29.85 kg/m2 Lakisha Slarb PROSTHETICS ASSISTANT Comprehen sive Internal Medicine Work Phone: 05-15-2015 15:20-0500 Body Temperature 97.8 [degF] Lakisha Slarb PROSTHETICS ASSISTANT [facility] Work Phone: 05-15-2015 15:20-0500 Body weight 87.09 kg Lakisha Slarb PROSTHETICS ASSISTANT [facility] Work Phone: 05-15-2015 15:20-0500 BP Diastolic 80 mm[Hg] Lakisha Slarb PROSTHETICS ASSISTANT [facility] Work Phone: Comment on above: Patient Position: Sitting; Cuff Location : Left Arm; Cuff Size: Standard 05-15-2015 15:20-0500 BP Systolic 122 mm[Hg] Lakisha Slarb PROSTHETICS ASSISTANT [facility] Work Phone: Comment on above: Patient Position: Sitting; Cuff Location : Left Arm; Cuff Size: Standard 05-15-2015 15:20-0500 BSA (Body Surface Area) 1.99 m2 Lakisha Slarb PROSTHETICS ASSISTANT [facility] Work Phone: 05-15-2015 15:20-0500 Height 170.81 cm Lakisha Slarb PROSTHETICS ASSISTANT [facility] Work Phone: 05-15-2015 15:20-0500 Pulse (Heart Rate) 82 /min Lakisha Slarb PROSTHETICS ASSISTANT Comprehensiv e Internal Medicine Work Phone: Comment on above: Pattern: Regular 05-15-2015 15:20-0500 Pulse Oximetry 96 % Hortencia Flores [facility] Internal Medicine Work Phone: Comment on above: Room air 05-15-2015 15:20-0500 Respiratory Rate 14 /min Lakisha Toro GAYTAN [facility] Internal Medicine Work Phone: Comment on above: Pattern: Unlabored 05-15-2015 15:20-0500 SaO2% (BldA) [Mass fraction] 96 % Lakisha Toro GAYTAN [facility] Internal Medicine; [facility] Work Phone: Comment on above: Room air 05-15-2015 15:20-0500 Weight 87.09 kg Hortencia Flores [facility] Internal Medicine Work Phone: 07-27-2014 11:27-0400 BMI (Body Mass Index) 29.85 kg/m2 Simran Mello [facility] Internal Medicine Work Phone: 07-27-2014 11:27-0400 Body Temperature 99.5 [degF] Simran Alcantara [facility] Internal Medicine Work Phone: 07-27-2014 11:27-0400 Body weight 87.09 kg Simran Alcantara [facility] Internal Medicine Work Phone: 07-27-2014 11:27-0400 BP Diastolic 80 mm[Hg] Simran Alcantara [facility] Internal Medicine Work Phone: Comment on above: Patient Position: Sitting; Cuff Location : Left Arm; Cuff Size: Standard 07-27-2014 11:27-0400 BP Systolic 108 mm[Hg] Simran Alcantara [facility] Internal Medicine Work Phone: Comment on above: Patient Position: Sitting; Cuff Location : Left Arm; Cuff Size: Standard 07-27-2014 11:27-0400 BSA (Body Surface Area) 1.99 m2 Simran Alcantara [facility] Internal Medicine Work Phone: 07-27-2014 11:27-0400 Height 170.81 cm Simran Alcantara [facility] Internal Medicine Work Phone: 07-27-2014 11:27-0400 Pulse (Heart Rate) 79 /min Simran Flinner Comprehensiv e Internal Medicine Work Phone: Comment on above: Pattern: Regular 07-27-2014 11:27-0400 Pulse Oximetry 98 % Hortencia Flores [facility] Internal Medicine Work Phone: Comment on above: Room air 07-27-2014 11:27-0400 Respiratory Rate 18 /min Simran Quinton [facility] Internal Medicine Work Phone: Comment on above: Pattern: Unlabored 07-27-2014 11:27-0400 SaO2% (BldA) [Mass fraction] 98 % Simran Alcantara [facility] Internal Medicine; [facility] Work Phone: Comment on above: Room air 07-27-2014 11:27-0400 Weight 87.09 kg Hortencia Flores [facility] Internal Medicine Work Phone: 08-13-2013 09:35-0400 Body Temperature 98.1 [degF] Simran Alcantara [facility] Internal Medicine Work Phone: 08-13-2013 09:35-0400 BP Diastolic 62 mm[Hg] Simran Quinton [facility] Internal Medicine Work Phone: Comment on above: Patient Position: Sitting; Cuff Location : Left Arm; Cuff Size: Large 08-13-2013 09:35-0400 BP Systolic 94 mm[Hg] Simran Quinton [facility] Internal Medicine Work Phone: Comment on above: Patient Position: Sitting; Cuff Location : Left Arm; Cuff Size: Large 08-13-2013 09:35-0400 Height 170.81 cm Simran Alcantara [facility] Internal Medicine Work Phone: 08-13-2013 09:35-0400 Pulse (Heart Rate) 86 /min Simran Quinton Comprehens e Internal Medicine Work Phone: Comment on above: Pattern: Regular 08-13-2013 09:35-0400 Respiratory Rate 18 /min Simran Alcantara [facility] Internal Medicine Work Phone: Comment on above: Pattern: Unlabored 06-11-2013 15:51-0500 BMI (Body Mass Index) 29.69 kg/m2 Simran [facility]cantara [facility] Work Phone: 06-11-2013 15:51-0500 Body Temperature 98.4 [degF] Simran Alcantara [facility] Internal Medicine Work Phone: 06-11-2013 15:51-0500 Body weight 86.64 kg Simran Alcantara [facility] Internal Medicine Work Phone: 06-11-2013 15:51-0500 BP Diastolic 60 mm[Hg] Simran Alcantara [facility] Internal Medicine Work Phone: Comment on above: Patient Position: Sitting; Cuff Location : Left Arm; Cuff Size: Large 06-11-2013 15:51-0500 BP Systolic 100 mm[Hg] Simran Alcantara [facility] Internal Medicine Work Phone: Comment on above: Patient Position: Sitting; Cuff Location : Left Arm; Cuff Size: Large 06-11-2013 15:51-0500 BSA (Body Surface Area) 1.99 m2 Simran Barnesjono [facility] Internal Medicine Work Phone: 06-11-2013 15:51-0500 Height 170.81 cm Simran Alcantara [facility] Internal Medicine Work Phone: 06-11-2013 15:51-0500 Pulse (Heart Rate) 82 /min [facility] Work Phone: Comment on above: Pattern: Regular 06-11-2013 15:51-0500 Respiratory Rate 16 /min Simran Barnesjono [facility] Internal Medicine Work Phone: Comment on above: Pattern: Unlabored 06-11-2013 15:51-0500 Weight 86.64 kg Hortencia Flores [facility] Internal Medicine Work Phone: 05-20-2012 10:45-0500 Body Temperature 99 [degF] Simran Alcantara [facility] Internal Medicine Work Phone: 05-20-2012 10:45-0500 BP Diastolic 80 mm[Hg] Simran Barnesjono [facility] Internal Medicine Work Phone: Comment on above: Patient Position: Sitting; Cuff Location : Left Arm; Cuff Size: Large 05-20-2012 10:45-0500 BP Systolic 110 mm[Hg] Simran Quinton [facility] Internal Medicine Work Phone: Comment on above: Patient Position: Sitting; Cuff Location : Left Arm; Cuff Size: Large 05-20-2012 10:45-0500 Height 170.81 cm Simran Alcantara [facility] Internal Medicine Work Phone: 05-20-2012 10:45-0500 Pulse (Heart Rate) 84 /min [facility] Work Phone: Comment on above: Pattern: Regular 05-20-2012 10:45-0500 Respiratory Rate 16 /min Simran Alcantara [facility] Internal Medicine Work Phone: Comment on above: Pattern: Unlabored 01-31-2012 14:00-0400 BMI (Body Mass Index) 30.31 kg/m2 Simran Alcantara Comprehen sive Internal Medicine Work Phone: 01-31-2012 14:00-0400 Body Temperature 98.7 [degF] Simran Quinton [facility] Internal Medicine Work Phone: 01-31-2012 14:00-0400 Body weight 88.45 kg Simran Quinton [facility] Internal Medicine Work Phone: 01-31-2012 14:00-0400 BP Diastolic 80 mm[Hg] Simran Alcantara [facility] Internal Medicine Work Phone: Comment on above: Patient Position: Sitting; Cuff Location : Left Arm; Cuff Size: Large 01-31-2012 14:00-0400 BP Systolic 108 mm[Hg] Simran Alcantara [facility] Internal Medicine Work Phone: Comment on above: Patient Position: Sitting; Cuff Location : Left Arm; Cuff Size: Large 01-31-2012 14:00-0400 BSA (Body Surface Area) 2.01 m2 Simran Alcantara [facility] Internal Medicine Work Phone: 01-31-2012 14:00-0400 Height 170.81 [facility] Work Phone: 01-31-2012 14:00-0400 Pulse (Heart Rate) 80 /min Simran Alcantara Comprehens e Internal Medicine Work Phone: Comment on above: Pattern: Regular 01-31-2012 14:00-0400 Respiratory Rate 16 /min Simran Barnesjono [facility] Internal Medicine Work Phone: Comment on above: Pattern: Unlabored 01-31-2012 14:00-0400 Weight 88.45 kg Hortencia Flores [facility] Internal Medicine Work Phone: 01-14-2012 09:24-0400 BMI (Body Mass Index) 30.63 kg/m2 [facility] Internal [facility] Work Phone: 01-14-2012 09:24-0400 Body Temperature 98.3 [degF] Simran Valleshira [facility] Internal Medicine Work Phone: 01-14-2012 09:24-0400 Body weight 89.36 kg Simran Barnesjono [facility] Internal Medicine Work Phone: 01-14-2012 09:24-0400 BP Diastolic 82 mm[Hg] Simran Alcantara [facility] Internal Medicine Work Phone: Comment on above: Patient Position: Sitting; Cuff Location : Left Arm; Cuff Size: Large 01-14-2012 09:24-0400 BP Systolic 110 mm[Hg] Simran Barnesjono [facility] Internal Medicine Work Phone: Comment on above: Patient Position: Sitting; Cuff Location : Left Arm; Cuff Size: Large 01-14-2012 09:24-0400 BSA (Body Surface Area) 2.01 m2 Simran Valleshira [facility] Internal Medicine Work Phone: 01-14-2012 09:24-0400 Height 170.81 cm Simran Valleshira [facility] Internal Medicine Work Phone: 01-14-2012 09:24-0400 Pulse (Heart Rate) 76 /min Simran Valleshira Comprehens e Internal Medicine Work Phone: Comment on above: Pattern: Regular 01-14-2012 09:24-0400 Respiratory Rate 16 /min Simran Valleshira [facility] Internal Medicine Work Phone: Comment on above: Pattern: Unlabored 01-14-2012 09:24-0400 Weight 89.36 kg Hortencia Flores [facility] Internal Medicine Work Phone: 06-14-2011 07:57-0500 BMI (Body Mass Index) 29.85 kg/m2 Simran Quinton Comprehen sive Internal Medicine Work Phone: 06-14-2011 07:57-0500 Body Temperature 98.5 [degF] Simran Quinton [facility] Internal Medicine Work Phone: 06-14-2011 07:57-0500 Body weight 87.09 kg Simran Quinton [facility] Internal Medicine Work Phone: 06-14-2011 07:57-0500 BP Diastolic 68 mm[Hg] Simran Quinton [facility] Internal Medicine Work Phone: Comment on above: Patient Position: Sitting; Cuff Location : Left Arm; Cuff Size: Large 06-14-2011 07:57-0500 BP Systolic 110 mm[Hg] Simran Quinton [facility] Work Phone: Comment on above: Patient Position: Sitting; Cuff Location : Left Arm; Cuff Size: Large 06-14-2011 07:57-0500 BSA (Body Surface Area) 1.99 m2 Simran Quinton [facility] Work Phone: 06-14-2011 07:57-0500 Height 170.81 cm Simran Quinton [facility] Work Phone: 06-14-2011 07:57-0500 Pulse (Heart Rate) 84 /min Simran Quinton [facility] Work Phone: Comment on above: Pattern: Regular 06-14-2011 07:57-0500 Respiratory Rate 16 /min Simran Quinton [facility] Work Phone: Comment on above: Pattern: Unlabored 06-14-2011 07:57-0500 Weight 87.09 kg Hortencia Flores [facility] Work Phone: 03-20-2011 09:43-0500 BMI (Body Mass Index) 29.54 kg/m2 Sofia Rose LPN [facility] Work Phone: 03-20-2011 09:43-0500 Body Temperature 98.6 [degF] Sofia Rose LPN [facility] Work Phone: Comment on above: Method: Oral 03-20-2011 09:43-0500 Body weight 86.18 kg Sofia Rose LPN [facility] Work Phone: 03-20-2011 09:43-0500 BP Diastolic 72 mm[Hg] Sofia Rose LPN [facility] Work Phone: Comment on above: Patient Position: Sitting; Cuff Location : Left Arm; Cuff Size: Standard 03-20-2011 09:43-0500 BP Systolic 110 mm[Hg] Sofia Rose LPN [facility] Work Phone: Comment on above: Patient Position: Sitting; Cuff Location : Left Arm; Cuff Size: Standard 03-20-2011 09:43-0500 BSA (Body Surface Area) 1.98 m2 Sofia Rose LPN [facility] Work Phone: 03-20-2011 09:43-0500 Height 170.81 cm Sofia Rose LPN [facility] Work Phone: 03-20-2011 09:43-0500 Pulse (Heart Rate) 102 /min Sofia Rose LPN [facility] Work Phone: Comment on above: Pattern: Regular 03-20-2011 09:43-0500 Pulse Oximetry 99 % Hortencia Flores [facility] Work Phone: Comment on above: Room air 03-20-2011 09:43-0500 Respiratory Rate 17 /min Sofia Rose LPN [facility] Work Phone: Comment on above: Pattern: Unlabored 03-20-2011 09:43-0500 SaO2% (BldA) [Mass fraction] 99 % Sofia Rose LUCILA [facility]; [facility] Work Phone: Comment on above: Room air 03-20-2011 09:43-0500 Weight 86.18 kg Hortencia Flores [facility] Work Phone: 08-24-2010 08:00-0400 BMI (Body Mass Index) 29.54 kg/m2 Simran [facility] Work Phone: 08-24-2010 08:00-0400 Body Temperature 98 [degF] Simran Quinton [facility] Work Phone: 08-24-2010 08:00-0400 Body weight 86.18 kg Simran Quinton [facility] Work Phone: 08-24-2010 08:00-0400 BP Diastolic 60 mm[Hg] Simran Alcantara [facility] Work Phone: Comment on above: Patient Position: Sitting; Cuff Location : Left Arm; Cuff Size: Standard 08-24-2010 08:00-0400 BP Systolic 102 mm[Hg] Simran Quinton [facility] Work Phone: Comment on above: Patient Position: Sitting; Cuff Location : Left Arm; Cuff Size: Standard 08-24-2010 08:00-0400 BSA (Body Surface Area) 1.98 m2 Simran Alcantara [facility] Work Phone: 08-24-2010 08:00-0400 Height 170.81 cm Simran Alcantara [facility] Work Phone: 08-24-2010 08:00-0400 Pulse (Heart Rate) 76 /min Simran Cruzensiv e Internal Medicine Work Phone: Comment on above: Pattern: Regular 08-24-2010 08:00-0400 Respiratory Rate 16 /min Simran Quinton [facility] Work Phone: Comment on above: Pattern: Unlabored 08-24-2010 08:00-0400 Weight 86.18 kg Hortencia Flores [facility] Work Phone: 06-11-2010 16:12-0500 Body Temperature 98.3 [degF] Sofia Rose LPN [facility] Work Phone: Comment on above: Method: Oral 06-11-2010 16:12-0500 Body weight 87.54 kg Sofia Rose LPN [facility] Work Phone: 06-11-2010 16:12-0500 BP Diastolic 78 mm[Hg] Sofia Rose LPN [facility] Work Phone: Comment on above: Patient Position: Sitting; Cuff Location : Left Arm; Cuff Size: Standard 06-11-2010 16:12-0500 BP Systolic 118 mm[Hg] Sofia Rose LPN [facility] Work Phone: Comment on above: Patient Position: Sitting; Cuff Location : Left Arm; Cuff Size: Standard 06-11-2010 16:12-0500 Pulse (Heart Rate) 74 /min Sofia Rose LPN [facility] Work Phone: Comment on above: Pattern: Regular 06-11-2010 16:12-0500 Respiratory Rate 17 /min Sofia Rose LPN [facility] Work Phone: Comment on above: Pattern: Unlabored 06-11-2010 16:12-0500 Weight 87.54 kg Hortencia Flores [facility] Work Phone: 03-13-2010 10:35-0500 Body Temperature 98.3 [degF] Simran Alcantara [facility] Work Phone: 03-13-2010 10:35-0500 Body weight 87.54 kg Simran Alcantara [facility] Work Phone: 03-13-2010 10:35-0500 BP Diastolic 80 mm[Hg] Simran Alcantara [facility] Work Phone: Comment on above: Patient Position: Sitting; Cuff Location : Left Arm; Cuff Size: Large 03-13-2010 10:35-0500 BP Systolic 106 mm[Hg] Simran Alcantara [facility] Work Phone: Comment on above: Patient Position: Sitting; Cuff Location : Left Arm; Cuff Size: Large 03-13-2010 10:35-0500 Pulse (Heart Rate) 72 /min Simran Quinton [facility] Work Phone: Comment on above: Pattern: Regular 03-13-2010 10:35-0500 Respiratory Rate 18 /min Simran Alcantara [facility] Work Phone: Comment on above: Pattern: Unlabored 03-13-2010 10:35-0500 Weight 87.54 kg Hortencia Flores [facility] Work Phone: 01-31-2010 16:17-0400 BMI (Body Mass Index) 31.01 kg/m2 Simran Quinton [facility] Work Phone: 01-31-2010 16:17-0400 Body Temperature 98.2 [degF] Simran Alcantara [facility] Work Phone: 01-31-2010 16:17-0400 Body weight 89.81 kg Simran Quinton [facility] Work Phone: 01-31-2010 16:17-0400 BP Diastolic 72 mm[Hg] Simran Quinton [facility] Work Phone: Comment on above: Patient Position: Sitting; Cuff Location : Left Arm; Cuff Size: Standard 01-31-2010 16:17-0400 BP Systolic 104 mm[Hg] Simran Alcantara [facility] Work Phone: Comment on above: Patient Position: Sitting; Cuff Location : Left Arm; Cuff Size: Standard 01-31-2010 16:17-0400 BSA (Body Surface Area) 2.01 m2 Simran Alcantara [facility] Work Phone: 01-31-2010 16:17-0400 Height 170.18 cm Simran Alcantara [facility] Work Phone: 01-31-2010 16:17-0400 Pulse (Heart Rate) 68 /min Simran Alcantara [facility] Work Phone: Comment on above: Pattern: Regular 01-31-2010 16:17-0400 Respiratory Rate 18 /min Simran Alcantara [facility] Work Phone: Comment on above: Pattern: Unlabored 01-31-2010 16:17-0400 Weight 89.81 kg Hortencia Flores [facility] Work Phone: 04-21-2009 07:08-0500 Body Temperature 97.6 [degF] Libia Sweet RN [facility] Work Phone: Comment on above: Method: Oral 04-21-2009 07:08-0500 Body weight 87.54 kg Libia Sweet RN [facility] Work Phone: 04-21-2009 07:08-0500 BP Diastolic 76 mm[Hg] Libia Sweet RN [facility] Work Phone: Comment on above: Patient Position: Sitting; Cuff Location : Left Arm; Cuff Size: Large 04-21-2009 07:08-0500 BP Systolic 100 mm[Hg] Libia Sweet RN [facility] Work Phone: Comment on above: Patient Position: Sitting; Cuff Location : Left Arm; Cuff Size: Large 04-21-2009 07:08-0500 Pulse (Heart Rate) 76 /min Libia Sweet RN [facility] Work Phone: Comment on above: Pattern: Regular 04-21-2009 07:08-0500 Respiratory Rate 20 /min Libia Sweet RN [facility] Work Phone: Comment on above: Pattern: Unlabored 04-21-2009 07:08-0500 Weight 87.54 kg Hortencia Flores [facility] Work Phone: 12-16-2008 07:56-0400 Body Temperature 98.9 [degF] Libia Sweet RN [facility] Work Phone: Comment on above: Method: Oral 12-16-2008 07:56-0400 Body weight 87.09 kg Libia Sweet RN [facility] Work Phone: 12-16-2008 07:56-0400 BP Diastolic 58 mm[Hg] Libia Sweet RN [facility] Work Phone: Comment on above: Patient Position: Sitting; Cuff Location : Left Arm; Cuff Size: Large 12-16-2008 07:56-0400 BP Systolic 100 mm[Hg] Libia Sweet RN [facility] Work Phone: Comment on above: Patient Position: Sitting; Cuff Location : Left Arm; Cuff Size: Large 12-16-2008 07:56-0400 Head Circumference 0 cm [facility] Work Phone: 12-16-2008 07:56-0400 Head Occipital-frontal circumference 0 cm Libia Sweet RN [facility]; [facility] Work Phone: 12-16-2008 07:56-0400 Height 0 cm Libia Sweet RN [facility] Work Phone: 12-16-2008 07:56-0400 Pulse (Heart Rate) 64 /min Libia Sweet RN [facility] Work Phone: Comment on above: Pattern: Regular 12-16-2008 07:56-0400 Respiratory Rate 16 /min Libia Sweet RN [facility] Work Phone: Comment on above: Pattern: Unlabored 12-16-2008 07:56-0400 Weight 87.09 kg [facility] Medicine Work Phone: 11-09-2008 16:23-0400 Body weight 0 kg Simran Alcantara [facility] Work Phone: 11-09-2008 16:23-0400 BP Diastolic 86 mm[Hg] Simran Alcantara [facility] Work Phone: Comment on above: Patient Position: Sitting; Cuff Location : Left Arm; Cuff Size: Standard 11-09-2008 16:23-0400 BP Systolic 114 mm[Hg] Simran Alcantara [facility] Work Phone: Comment on above: Patient Position: Sitting; Cuff Location : Left Arm; Cuff Size: Standard 11-09-2008 16:23-0400 Head Circumference 0 cm [facility] Work Phone: 11-09-2008 16:23-0400 Head Occipital-frontal circumference 0 cm Simran Alcantara [facility]; [facility] Work Phone: 11-09-2008 16:23-0400 Height 0 cm Simran Quinton [facility] Work Phone: 11-09-2008 16:23-0400 Pulse (Heart Rate) 64 /min Simran Alcantara [facility] Work Phone: Comment on above: Pattern: Regular 11-09-2008 16:23-0400 Respiratory Rate 18 /min Simran Quinton [facility] Work Phone: Comment on above: Pattern: Undefined 11-09-2008 16:23-0400 Weight 0 kg Hortencia Flores [facility] Work Phone: 10-28-2008 09:07-0400 Body Temperature 97.1 [degF] Libia Sweet RN [facility] Work Phone: Comment on above: Method: Oral 10-28-2008 09:07-0400 Body weight 87.09 kg Libia Sweet RN [facility] Work Phone: 10-28-2008 09:07-0400 BP Diastolic 80 mm[Hg] Libia Sweet RN [facility] Work Phone: Comment on above: Patient Position: Sitting; Cuff Location : Left Arm; Cuff Size: Large 10-28-2008 09:07-0400 BP Systolic 130 mm[Hg] Libia Sweet RN [facility] Work Phone: Comment on above: Patient Position: Sitting; Cuff Location : Left Arm; Cuff Size: Large 10-28-2008 09:07-0400 Head Circumference 0 cm Hortencia Flores [facility] Work Phone: 10-28-2008 09:07-0400 Head Occipital-frontal circumference 0 cm Libia Sweet RN [facility]; [facility] Work Phone: 10-28-2008 09:07-0400 Height 0 cm Libia Sweet RN [facility] Work Phone: 10-28-2008 09:07-0400 Pulse (Heart Rate) 64 /min Libia Sweet RN [facility] Work Phone: Comment on above: Pattern: Regular 10-28-2008 09:07-0400 Respiratory Rate 20 /min Libia Sweet RN [facility] Work Phone: Comment on above: Pattern: Unlabored 10-28-2008 09:07-0400 Weight 87.09 kg Hortencia Salazarlis [facility] Work Phone: 09-12-2008 09:09-0400 BMI (Body Mass Index) 28.06 kg/m2 Daphne Cheng [facility] Work Phone: 09-12-2008 09:090400 Body weight 86.18 kg Daphne Cheng [facility] Work Phone: 09-12-2008 09:09-0400 BP Diastolic 74 mm[Hg] Daphne [facility] Work Phone: Comment on above: Patient Position: Supine; Cuff Location: Left Arm; Cuff Size: Standard 09-12-2008 09:09-0400 BP Systolic 130 mm[Hg] Daphne [facility] Work Phone: Comment on above: Patient Position: Supine; Cuff Location: Left Arm; Cuff Size: Standard 09-12-2008 09:09-0400 BSA (Body Surface Area) 2.02 m2 Daphne Skylar [facility] Work Phone: 09-12-2008 09:09-0400 Head Circumference 0 cm Hortencia Salazarlis [facility] Work Phone: 09-12-2008 09:09-0400 Head Occipital-frontal circumference 0 cm Daphne Skylar [facility]; [facility] Work Phone: 09-12-2008 09:09-0400 Height 175.26 cm Daphne [facility] Work Phone: 09-12-2008 09:09-0400 Pulse (Heart Rate) 80 /min Daphne [facility] Work Phone: Comment on above: Pattern: Regular 09-12-2008 09:09-0400 Respiratory Rate 16 /min Daphne Cheng [facility] Work Phone: Comment on above: Pattern: Unlabored 09-12-2008 09:09-0400 Weight 86.18 kg Hortencia Flores [facility] Work Phone: 08-08-2008 11:34-0400 Body Temperature 98.6 [degF] Nila [facility] Medicine Work Phone: Comment on above: Method: Oral 08-08-2008 11:34-0400 Body weight 87.54 kg Nila [facility] Work Phone: 08-08-2008 11:34-0400 BP Diastolic 68 mm[Hg] Nila [facility] Work Phone: Comment on above: Patient Position: Sitting; Cuff Location : Left Arm; Cuff Size: Standard 08-08-2008 11:34-0400 BP Systolic 122 mm[Hg] Nila [facility] Work Phone: Comment on above: Patient Position: Sitting; Cuff Location : Left Arm; Cuff Size: Standard 08-08-2008 11:34-0400 Head Circumference 0 cm Hortencia Flores [facility] Work Phone: 08-08-2008 11:34-0400 Head Occipital-frontal circumference 0 cm Nila Masters [facility]; [facility] Work Phone: 08-08-2008 11:34-0400 Height 0 cm Nila [facility] Work Phone: 08-08-2008 11:34-0400 Pulse (Heart Rate) 84 /min Nila [facility] Work Phone: Comment on above: Pattern: Regular 08-08-2008 11:34-0400 Pulse Oximetry 98 % Hortencia Flores [facility] Work Phone: Comment on above: Room air 08-08-2008 11:34-0400 Respiratory Rate 18 /min [facility] Work Phone: Comment on above: Pattern: Unlabored 08-08-2008 11:34-0400 SaO2% (BldA) [Mass fraction] 98 % Nila Masters [facility]; [facility] Work Phone: Comment on above: Room air 08-08-2008 11:34-0400 Weight 87.54 kg Hortencia Flores [facility] Work Phone: 01-18-2008 17:16-0400 Body Temperature 97.2 [degF] Simran Quinton [facility] Work Phone: Comment on above: Method: Undefined 01-18-2008 17:16-0400 Body weight 87.54 kg Simran Valleshira [facility] Work Phone: 01-18-2008 17:16-0400 BP Diastolic 88 mm[Hg] Simran Quinton [facility] Work Phone: Comment on above: Patient Position: Sitting; Cuff Location : Right Arm; Cuff Size: Standard 01-18-2008 17:16-0400 BP Systolic 112 mm[Hg] Simran Quinton [facility] Work Phone: Comment on above: Patient Position: Sitting; Cuff Location : Right Arm; Cuff Size: Standard 01-18-2008 17:16-0400 Head Circumference 0 cm Hortencia Flores [facility] Work Phone: 01-18-2008 17:16-0400 Head Occipital-frontal circumference 0 cm Simran Alcantara [facility]; [facility] Work Phone: 01-18-2008 17:16-0400 Height 0 cm Simran Alcantara [facility] Work Phone: 01-18-2008 17:16-0400 Pulse (Heart Rate) 80 /min Simran Quinton [facility] Work Phone: Comment on above: Pattern: Regular 01-18-2008 17:16-0400 Respiratory Rate 16 /min Simran Alcantara [facility] Work Phone: Comment on above: Pattern: Undefined 01-18-2008 17:16-0400 Weight 87.54 kg Hortencia Flores [facility] Work Phone: 01-07-2008 07:55-0400 Body Temperature 98.5 [degF] Nila [facility] Work Phone: Comment on above: Method: Oral 01-07-2008 07:55-0400 Body weight 87.6 kg Nila Masters [facility] Work Phone: 01-07-2008 07:55-0400 BP Diastolic 72 mm[Hg] Nila [facility] Work Phone: Comment on above: Patient Position: Sitting; Cuff Location : Right Arm; Cuff Size: Standard 01-07-2008 07:55-0400 BP Systolic 126 mm[Hg] Nila [facility] Work Phone: Comment on above: Patient Position: Sitting; Cuff Location : Right Arm; Cuff Size: Standard 01-07-2008 07:55-0400 Head Circumference 0 cm Hortencia [facility] Internal Medicine Work Phone: 01-07-2008 07:55-0400 Head Occipital-frontal circumference 0 cm [facility] Work Phone: 01-07-2008 07:55-0400 Height 0 cm Nila [facility] Work Phone: 01-07-2008 07:55-0400 Respiratory Rate 16 /min Nila [facility] Work Phone: Comment on above: Pattern: Unlabored 01-07-2008 07:55-0400 Weight 87.6 kg Hortencia Flores [facility] Work Phone: 01-01-2008 08:03-0400 Body Temperature 98 [degF] Simran Alcantara [facility] Work Phone: Comment on above: Method: Undefined 01-01-2008 08:03-0400 Body weight 0 kg Simran Barnesjono [facility] Work Phone: 01-01-2008 08:03-0400 BP Diastolic 84 mm[Hg] Simran Quinton [facility] Work Phone: Comment on above: Patient Position: Sitting; Cuff Location : Right Arm; Cuff Size: Standard 01-01-2008 08:03-0400 BP Systolic 126 mm[Hg] Simran Quinton [facility] Work Phone: Comment on above: Patient Position: Sitting; Cuff Location : Right Arm; Cuff Size: Standard 01-01-2008 08:03-0400 Head Circumference 0 cm Hortencia Flores [facility] Work Phone: 01-01-2008 08:03-0400 Head Occipital-frontal circumference 0 cm Simran Quinton [facility]; [facility] Work Phone: 01-01-2008 08:03-0400 Height 0 cm Simran Quinton [facility] Work Phone: 01-01-2008 08:03-0400 Pulse (Heart Rate) 88 /min Simran Valleshira [facility] Medicine Work Phone: Comment on above: Pattern: Regular 01-01-2008 08:03-0400 Respiratory Rate 16 /min Simran Quinton [facility] Work Phone: Comment on above: Pattern: Undefined 01-01-2008 08:03-0400 [facility] Work Phone: 10-08-2007 08:15-0400 BMI (Body Mass Index) 29.41 kg/m2 Daphne Cheng [facility] Work Phone: 10-08-2007 08:15-0400 Body weight 87.74 kg Dapnhe [facility] Internal Medicine Work Phone: 10-08-2007 08:15-0400 BP Diastolic 82 mm[Hg] [facility] Internal Medicine Work Phone: Comment on above: Patient Position: Sitting; Cuff Location : Left Arm; Cuff Size: Standard 10-08-2007 08:15-0400 BP Systolic 122 mm[Hg] Daphne [facility] Internal Medicine Work Phone: Comment on above: Patient Position: Sitting; Cuff Location : Left Arm; Cuff Size: Standard 10-08-2007 08:15-0400 BSA (Body Surface Area) 2.02 m2 Daphne [facility] Internal Medicine Work Phone: 10-08-2007 08:15-0400 Head Circumference 0 cm [facility] Internal Medicine Work Phone: 10-08-2007 08:15-0400 Head Occipital-frontal circumference 0 cm Daphne [facility]; [facility] Work Phone: 10-08-2007 08:15-0400 Height 172.72 cm Daphne [facility] Medicine Work Phone: 10-08-2007 08:15-0400 Pulse (Heart Rate) 72 /min [facility] Internal Medicine Work Phone: Comment on above: Pattern: Regular 10-08-2007 08:15-0400 Respiratory Rate 16 /min Daphne [facility] Medicine Work Phone: Comment on above: Pattern: Unlabored 10-08-2007 08:15-0400 Weight 87.74 kg [facility] Medicine Work Phone: 06-29-2007 16:21-0400 Body Temperature 99.2 [degF] Libia Sweet RN [facility] Work Phone: Comment on above: Method: Oral 06-29-2007 16:21-0400 Body weight 87.09 kg Libia Sweet RN [facility] Work Phone: 06-29-2007 16:21-0400 BP Diastolic 90 mm[Hg] Libia Sweet RN [facility] Work Phone: Comment on above: Patient Position: Sitting; Cuff Location : Right Arm; Cuff Size: Large 06-29-2007 16:21-0400 BP Systolic 136 mm[Hg] Libia Sweet RN [facility] Work Phone: Comment on above: Patient Position: Sitting; Cuff Location : Right Arm; Cuff Size: Large 06-29-2007 16:21-0400 Head Circumference 0 cm [facility] Internal Medicine Work Phone: 06-29-2007 16:21-0400 Head Occipital-frontal circumference 0 cm Libia Sweet RN [facility]; [facility] Work Phone: 06-29-2007 16:21-0400 Height 0 cm Libia Sweet RN [facility] Internal Medicine Work Phone: 06-29-2007 16:21-0400 Pulse (Heart Rate) 76 /min Libia Sweet RN [facility] Work Phone: Comment on above: Pattern: Regular 06-29-2007 16:21-0400 Respiratory Rate 18 /min Libia Sweet RN [facility] Work Phone: Comment on above: Pattern: Unlabored 06-29-2007 16:21-0400 Weight 87.09 kg Hortencia Salazarlis [facility] Internal Medicine Work Phone: 04-08-2007 11:09-0500 BMI (Body Mass Index) 29.69 kg/m2 Simran Mello [facility] Internal Medicine Work Phone: 04-08-2007 11:09-0500 Body Temperature 98.4 [degF] Simran Alcantara [facility] Internal Medicine Work Phone: Comment on above: Method: Oral 04-08-2007 11:09-0500 Body weight 86.64 kg Simran Alcantara [facility] Internal Medicine Work Phone: 04-08-2007 11:09-0500 BP Diastolic 90 mm[Hg] Simran Alcantara [facility] Internal Medicine Work Phone: Comment on above: Patient Position: Sitting; Cuff Location : Left Arm; Cuff Size: Standard 04-08-2007 11:09-0500 BP Systolic 128 mm[Hg] Simran Alcantara [facility] Internal Medicine Work Phone: Comment on above: Patient Position: Sitting; Cuff Location : Left Arm; Cuff Size: Standard 04-08-2007 11:09-0500 BSA (Body Surface Area) 1.99 m2 Simran Alcantara [facility] Internal Medicine Work Phone: 04-08-2007 11:09-0500 Head Circumference 0 cm Hortencia Mark [facility] Internal Medicine Work Phone: 04-08-2007 11:09-0500 Head Occipital-frontal circumference 0 cm Simran Alcantara [facility]; [facility] Work Phone: 04-08-2007 11:09-0500 Height 170.81 cm Simran Valleshira [facility] Internal Medicine Work Phone: 04-08-2007 11:09-0500 Pulse (Heart Rate) 84 /min [facility] Work Phone: Comment on above: Pattern: Regular 04-08-2007 11:09-0500 Respiratory Rate 16 /min Simran Valleshira [facility] Internal Medicine Work Phone: Comment on above: Pattern: Unlabored 04-08-2007 11:09-0500 Weight 86.64 kg Hortencia Flores [facility] Internal Medicine Work Phone: 01-22-2007 07:27-0400 Body Temperature 98.6 [degF] BEBETO Dax GAYTAN [facility] Internal Medicine Work Phone: Comment on above: Method: Oral 01-22-2007 07:27-0400 Body weight 0 kg BEBETO Dax GAYTAN [facility] Internal Medicine Work Phone: 01-22-2007 07:27-0400 BP Diastolic 78 mm[Hg] BEBETO Matos LUCILA [facility] Internal Medicine Work Phone: Comment on above: Patient Position: Sitting; Cuff Location : Left Arm; Cuff Size: Standard 01-22-2007 07:27-0400 BP Systolic 122 mm[Hg] BEBETO Dax GAYTAN [facility] Internal Medicine Work Phone: Comment on above: Patient Position: Sitting; Cuff Location : Left Arm; Cuff Size: Standard 01-22-2007 07:27-0400 Head Circumference 0 cm Hortencia Flores [facility] Internal Medicine Work Phone: 01-22-2007 07:27-0400 Head Occipital-frontal circumference 0 cm BEBETOSHERIN Matos LPN [facility]; [facility] Work Phone: 01-22-2007 07:27-0400 Height 0 cm BEBETO Dax GAYTAN [facility] Internal Medicine Work Phone: 01-22-2007 07:27-0400 Pulse (Heart Rate) 72 /min BEBETO Matos LPN [facility] Work Phone: Comment on above: Pattern: Regular 01-22-2007 07:27-0400 Respiratory Rate 20 /min BEBETO Matos LPN [facility] Work Phone: Comment on above: Pattern: Unlabored 01-22-2007 07:27-0400 Weight 0 kg Hortencia Flores [facility] Work Phone: 01-02-2007 09:51-0400 Body weight 0 kg Sofia Rose PROSTHETICS ASSISTANT [facility] Work Phone: 01-02-2007 09:51-0400 BP Diastolic 70 mm[Hg] Sofia Rose PROSTHETICS ASSISTANT [facility] Work Phone: Comment on above: Patient Position: Sitting; Cuff Location : Left Arm; Cuff Size: Standard 01-02-2007 09:51-0400 BP Systolic 120 mm[Hg] Sofia Rose PROSTHETICS ASSISTANT [facility] Work Phone: Comment on above: Patient Position: Sitting; Cuff Location : Left Arm; Cuff Size: Standard 01-02-2007 09:51-0400 Head Circumference 0 cm Hortencia Flores [facility] Work Phone: 01-02-2007 09:51-0400 Head Occipital-frontal circumference 0 cm Sofia Rose PROSTHETICS ASSISTANT [facility]; [facility] Work Phone: 01-02-2007 09:51-0400 Height 0 cm Sofia Rose LUCILA [facility] Work Phone: 01-02-2007 09:51-0400 Pulse (Heart Rate) 66 /min Sofia Rose LPN [facility] Work Phone: Comment on above: Pattern: Regular 01-02-2007 09:51-0400 Respiratory Rate 20 /min Sofia Rose LPN [facility] Work Phone: Comment on above: Pattern: Unlabored 01-02-2007 09:51-0400 Weight 0 kg Hortencia Flores [facility] Work Phone: Encounters Encounter Date Encounter Type Care Provider Facility Start: 09-17-2024 End: 09-17-2024 Patient encounter procedure Ellen Gutierrez [place] [facility] Work Phone: Start: 09-17-2024 End: 09-17-2024 ambulatory Katerin Cotton Facility:[facility] Start: 06-18-2024 ambulatory Katerin Cotton Facility :[facility] Start: 12-29-2023 End: 12-29-2023 ambulatory Radha Reid RADIO PERFORMER Facility:[facility] Start: 12-19-2023 End: 12-19-2023 ambulatory Leigh Amador RADIO PERFORMER Facility:[facility] Start: 11-17-2023 ambulatory Leigh Amador RADIO PERFORMER Facili ty:[facility] Start: 10-17-2023 End: 10-17-2023 ambulatory Katerin Cotton Facility:[facility] Start: 09-23-2023 End: 09-23-2023 ambulatory Katerin Cotton Facility:[facility] Start: 03-17-2023 End: 03-17-2023 ambulatory RADIO PERFORMER-C Katerin Cotton Work Phone: [facility] Work Phone: Start: 03-17-2023 End: 03-17-2023 Patient encounter procedure RADIO PERFORMER-C Katerin Cotton Work Phone: [facility] Work Phone: Start: 02-07-2023 End: 02-07-2023 Katerin Cotton BIOLOGICS SPECIALIST Work Phone: [facility] Start: 02-07-2023 End: 02-07-2023 Patient encounter procedure RADIO PERFORMER-C Katerni Cotton Work Phone: [facility]-Laboratory Work Phone: Start: 02-03-2023 End: 02-03-2023 Patient encounter procedure RADIO PERFORMER-C Katerin Cotton Work Phone: [facility] Work Phone: Start: 01-03-2023 End: 01-03-2023 Discharged Recurring RADIO PERFORMER-C Katerin Cotton Work Phone: [facility]-Physical Therapy Work Phone: Start: 01-01-2023 End: 01-02-2023 Office outpatient visit 15 minutes Katerin Cotton BIOLOGICS SPECIALIST Work Phone: [facility] Start: 12-10-2022 End: 12-10-2022 ambulatory RADIO PERFORMER-C Katerin Yury Work Phone: [facility] Work Phone: Start: 12-10-2022 End: 12-10-2022 Patient encounter procedure RADIO PERFORMER-C Katerinivonne Cotton Work Phone: [facility]-Outpatient Breast Imaging Work Phone: Start: 11-15-2022 End: 11-15-2022 Patient encounter procedure RADIO PERFORMER-C Katerinivonne Cotton Work Phone: [facility] Work Phone: Start: 06-18-2022 End: 06-18-2022 Office outpatient visit 15 minutes Hortencia Flores Work Phone: [facility] Start: 06-18-2022 Review Hortencia Appiaha Work Phone: [facility] Start: 06-17-2022 ambulatory [facility] Start: 03-12-2022 End: 03-20-2022 Office outpatient visit 25 minutes Hortencia Flores Work Phone: [facility] Start: 03-12-2022 Review Hortencia Appiaha Work Phone: [facility] Start: 12-18-2021 End: 12-18-2021 ambulatory RADIO PERFORMER-C Hortencia Appiaha RADIO PERFORMER Work Phone: [facility] Work Phone: Start: 12-18-2021 End: 12-18-2021 Patient encounter procedure RADIO PERFORMER-C Hortencia Appiaha RADIO PERFORMER Work Phone: [facility] Start: 12-07-2021 End: 12-07-2021 ambulatory [facility] Work Phone: Start: 12-07-2021 End: 12-07-2021 Patient encounter procedure [facility]-Outpatient Breast Imaging Start: 03-21-2021 End: 03-21-2021 Annotation/Addendum Hortencia Flores BIOLOGICS SPECIALIST Work Phone: [facility] Start: 03-21-2021 End: 03-21-2021 Hortencia Flores Work Phone: [facility] Start: 12-19-2020 End: 12-19-2020 Annotation/Addendum Hortencia Flores BIOLOGICS SPECIALIST Work Phone: [facility] Start: 12-19-2020 End: 12-19-2020 Hortencia Flores Work Phone: [facility] Start: 09-01-2020 End: 09-01-2020 Office outpatient visit 15 minutes Hortencia Flores BIOLOGICS SPECIALIST Work Phone: [facility] Start: 08-25-2020 End: 08-25-2020 Annotation/Addendum Hortencia Flores BIOLOGICS SPECIALIST Work Phone: [facility] Start: 08-25-2020 End: 08-25-2020 Hortencia Flores Work Phone: [facility] Start: 08-21-2020 End: 08-21-2020 Office outpatient visit 25 minutes Hortencia Flores BIOLOGICS SPECIALIST Work Phone: [facility] Start: 07-07-2020 End: 07-07-2020 Office outpatient visit 10 minutes Hortencia Flores [facility] Start: 06-26-2020 End: 06-26-2020 Office outpatient visit 15 minutes Hortencia Ponce [facility] Start: 06-26-2020 [facility] Start: 04-18-2020 End: 04-18-2020 Office outpatient visit 25 minutes Hortencia Ponce [facility] Start: 04-11-2020 End: 04-11-2020 Office outpatient visit 15 minutes Hortencia Ponce [facility] Start: 01-31-2020 End: 01-31-2020 Office outpatient visit 5 minutes Hortencia Flores [facility] Start: 07-02-2019 End: 07-02-2019 Annotation/Addendum Hortencia Flores [facility] Start: 07-02-2019 End: 07-02-2019 Hortencia Flores Work Phone: [facility] Start: 02-26-2019 End: 02-26-2019 Annotation/Addendum Hortencia Flores [facility] Start: 02-26-2019 End: 02-26-2019 Hortencia Flores Work Phone: [facility] Start: 08-05-2018 End: 08-05-2018 Office outpatient visit 25 minutes Hortencia Flores [facility] Start: 08-05-2018 End: 08-05-2018 Preprocedural examination done Hortencia Flores Work Phone: [facility] Start: 08-02-2018 End: 08-02-2018 Annotation/Addendum Hortencia Flores [facility] Start: 08-02-2018 End: 08-02-2018 Hortencia Flores Work Phone: [facility] Start: 05-18-2018 End: 05-18-2018 Annotation/Addendum Hortencia Flores [facility] Start: 05-18-2018 End: 05-18-2018 Hortencia Flores Work Phone: [facility] Start: 02-25-2018 End: 02-25-2018 Phone Encounter Hortencia Flores [facility] Start: 02-25-2018 End: 02-25-2018 Hortencia Flores Work Phone: [facility] Start: 12-01-2017 End: 12-01-2017 Office outpatient visit 15 minutes Hortencia Flores [facility] Start: 09-26-2017 End: 09-26-2017 Office outpatient visit 25 minutes Hortencia Flores [facility] Start: 06-06-2017 End: 06-06-2017 Office outpatient visit 25 minutes Hortencia Flores [facility] Start: 02-14-2017 End: 02-14-2017 Office outpatient visit 25 minutes Hortencia Flores [facility] Start: 01-28-2017 End: 01-28-2017 Phone Encounter Hortencia Flores [facility] Start: 01-28-2017 End: 01-28-2017 Hortencia Flores Work Phone: [facility] Start: 01-24-2017 End: 01-24-2017 Office outpatient visit 25 minutes Hortencia Flores [facility] Start: 04-26-2016 End: 04-26-2016 Office outpatient visit 15 minutes Hortencia Flores [facility] Start: 04-24-2016 End: 04-24-2016 Annotation/Addendum Hortencia Flores [facility] Start: 04-24-2016 End: 04-24-2016 Hortencia Flores Work Phone: [facility] Start: 03-15-2016 End: 03-15-2016 Office outpatient visit 15 minutes Hortencia Flores [facility] Start: 03-01-2016 End: 03-01-2016 Office outpatient visit 25 minutes Hortencia Flores [facility] Start: 01-29-2016 End: 01-29-2016 Annotation/Addendum Hortencia Flores [facility] Start: 01-29-2016 End: 01-29-2016 Hortencia Flores Work Phone: [facility] Start: 11-24-2015 End: 11-24-2015 Office outpatient visit 10 minutes Hortencia Flores [facility] Start: 10-06-2015 End: 10-06-2015 Annotation/Addendum Hortencia Flores [facility] Start: 10-06-2015 End: 10-06-2015 Hortencia Flores Work Phone: [facility] Start: 10-06-2015 End: 10-06-2015 Office outpatient visit 25 minutes Hortencia Flores [facility] Start: 10-06-2015 End: 10-06-2015 Preprocedural examination done Hortencia Flores Work Phone: [facility] Start: 06-19-2015 End: 06-19-2015 Phone Encounter Hortencia Flores [facility] Start: 06-19-2015 End: 06-19-2015 Hortencia Flores Work Phone: [facility] Start: 06-12-2015 End: 06-12-2015 Phone Encounter Hortencia Flores [facility] Start: 06-12-2015 End: 06-12-2015 Hortencia Flores Work Phone: [facility] Start: 06-07-2015 End: 06-08-2015 Office outpatient visit 25 minutes Hortencia Flores [facility] Start: 05-15-2015 End: 05-15-2015 Office outpatient visit 10 minutes Hortencia Flores [facility] Start: 07-27-2014 End: 07-28-2014 Office outpatient visit 25 minutes Hortencia Flores [facility] Start: 08-13-2013 End: 08-15-2013 Patient encounter Hortencia Flores [facility] Start: 08-13-2013 End: 08-15-2013 Hortencia Flores Work Phone: [facility] Start: 06-11-2013 End: 06-11-2013 Patient encounter Hortencia Flores [facility] Start: 06-11-2013 End: 06-11-2013 Hortencia Flores Work Phone: [facility] Start: 05-20-2012 End: 05-20-2012 Patient encounter Hortencia Flores [facility] Start: 05-20-2012 End: 05-20-2012 Hortencia Flores Work Phone: [facility] Start: 01-31-2012 End: 02-02-2012 Patient encounter Hortencia Flores [facility] Start: 01-31-2012 End: 02-02-2012 Hortencia Flores Work Phone: [facility] Start: 01-14-2012 End: 01-14-2012 Patient encounter Hortencia Flores [facility] Start: 01-14-2012 End: 01-14-2012 Hortencia Flores Work Phone: [facility] Start: 06-14-2011 End: 06-14-2011 Patient encounter Hortencia Flores [facility] Start: 06-14-2011 End: 06-14-2011 Hortencia Flores Work Phone: [facility] Start: 06-04-2011 End: 06-04-2011 Phone Encounter Hortencia Flores [facility] Start: 06-04-2011 End: 06-04-2011 Hortencia Flores Work Phone: [facility] Start: 03-20-2011 End: 03-20-2011 Office outpatient visit 15 minutes Hortencia Flores [facility] Start: 08-24-2010 End: 08-24-2010 Patient encounter Hortencia Flores [facility] Start: 08-24-2010 End: 08-24-2010 Hortencia Flores Work Phone: [facility] Start: 06-11-2010 End: 06-11-2010 Office outpatient new 30 minutes Hortencia Flores [facility] Start: 03-13-2010 End: 03-13-2010 Patient encounter Hortencia Flores [facility] Start: 03-13-2010 End: 03-13-2010 Hortencia Flores Work Phone: [facility] Start: 01-31-2010 End: 01-31-2010 Patient encounter Hortencia Flores [facility] Start: 01-31-2010 End: 01-31-2010 Hortencia Flores Work Phone: [facility] Start: 04-21-2009 End: 04-21-2009 Patient encounter Hortencia Flores [facility] Start: 04-21-2009 End: 04-21-2009 Hortencia Flores Work Phone: [facility] Start: 12-16-2008 End: 12-19-2008 Patient encounter Hortencia Flores [facility] Start: 12-16-2008 End: 12-19-2008 Hortencia Flores Work Phone: [facility] Start: 11-09-2008 End: 11-09-2008 Patient encounter Hortencia Flores [facility] Start: 11-09-2008 End: 11-09-2008 Hortencia Flores Work Phone: [facility] Start: 10-28-2008 End: 10-30-2008 Patient encounter Hortencia Flores [facility] Start: 10-28-2008 End: 10-30-2008 Hortencia Flores Work Phone: [facility] Start: 10-11-2008 End: 10-11-2008 Historical Summary Hortencia Flores [facility] Start: 10-11-2008 End: 10-11-2008 Hortencia Flores Work Phone: [facility] Start: 09-12-2008 End: 09-12-2008 Patient encounter Hortencia Flores [facility] Start: 09-12-2008 End: 09-12-2008 Hortencia Flores Work Phone: [facility] Start: 08-08-2008 End: 08-08-2008 Office outpatient visit 25 minutes Hortencia Flores [facility] Start: 01-18-2008 End: 01-18-2008 Patient encounter Hortencia Flores [facility] Start: 01-18-2008 End: 01-18-2008 Hortencia Flores Work Phone: [facility] Start: 01-07-2008 End: 01-07-2008 Office outpatient new 10 minutes Hortencia Flores [facility] Start: 01-01-2008 End: 01-01-2008 Patient encounter Hortencia Flores [facility] Start: 01-01-2008 End: 01-01-2008 Hortencia Flores Work Phone: [facility] Start: 11-30-2007 End: 11-30-2007 Historical Summary Hortencia Flores [facility] Start: 11-30-2007 End: 11-30-2007 Hortencia Flores Work Phone: [facility] Start: 10-08-2007 End: 10-08-2007 Patient encounter Hortencia Flores [facility] Start: 10-08-2007 End: 10-08-2007 Hortencia Flores Work Phone: [facility] Start: 06-29-2007 End: 06-29-2007 Patient encounter Hortencia Flores [facility] Start: 06-29-2007 End: 06-29-2007 Hortencia Flores Work Phone: [facility] Start: 04-08-2007 End: 04-08-2007 Patient encounter Hortencia Flores [facility] Start: 04-08-2007 End: 04-08-2007 Hortencia Flores Work Phone: [facility] Start: 03-13-2007 End: 03-13-2007 Refill Request Hortencia Flores [facility] Start: 03-13-2007 End: 03-13-2007 Hortencia Flores Work Phone: [facility] Start: 01-22-2007 End: 02-03-2007 Patient encounter Hortencia Flores [facility] Start: 01-22-2007 End: 02-03-2007 Hortencia Flores Work Phone: [facility] Start: 01-20-2007 End: 01-20-2007 Historical Summary Hortencia Flores [facility] Start: 01-20-2007 End: 01-20-2007 Hortencia Flores Work Phone: [facility] Start: 01-02-2007 End: 01-02-2007 Office outpatient visit 25 minutes Hortencia Flores [facility] Start: 02-17-2006 End: 02-17-2006 Phone Encounter Hortencia Flores [facility] Start: 02-17-2006 End: 02-17-2006 Hortencia Flores Work Phone: [facility] End: 07-27-2014 Patient encounter procedure Lakisha Engel [facility]; [facility] Work Phone: Preprocedural examination done Chantal Funez [facility]; [facility] Work Phone: End: 06-06-2017 Preprocedural examination done Lakisha Engel [facility]; [facility] Work Phone: Comment on above: DR Griggs 11 fo r Lap L Oophorectomy for L ovarian cyst Preprocedural examination done Blue Babb [facility]; [facility] Work Phone: Preprocedural examination done Blue Babb [facility]; [facility] Work Phone: Preprocedural examination done Lakisha Engel LPN [facility]; [facility] Work Phone: Preprocedural examination done Carmella Ron CMA [facility]; [facility] Work Phone: Preprocedural examination done Lakisha Engel [facility]; [facility] Work Phone: Procedures Date Procedure Procedure Detail Performing Clinician Start: 02-03-2023 End: 02-03-2023 Procedure Note: See Note; NOTES: [facility] 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 Therapy Co Director Required: No Is patient in pain?: No Allergies adhesive tape Allergy (Verified 02/03/23 08:43) Swelling latex Allergy (Verified 02/03/23 08:43) Swelling Medications amitriptyline 50 mg tablet 50 mg PO QHS 08/18/15 [History Confirmed 02/03/23] cholecalciferol (vitamin D3) 25 mcg (1,000 unit) chewable tablet 2,000 unit PO DAILY 07/06/16 [History Confirmed 02/03/23] multivitamin 1 ea PO DAILY 08/04/18 [History Confirmed 02/03/23] alprazolam 0.5 mg tablet 0.5 mg PO DAILY PRN PRN Anxiety 8 days #30 tabs 12/11/20 [History Confirmed 02/03/23] duloxetine 20 mg capsule,delayed release 20 mg PO DAILY 12/11/20 [History Confirmed 02/03/23] calcium citrate 250 mg calcium-vitamin D3 5 mcg (200 unit) tablet (Citracal Regular) 1 tab PO DAILY 12/25/21 [History Confirmed 02/03/23] metoprolol succinate 25 mg tablet,extended release 24 hr (Toprol XL) 25 mg PO DAILY #90 tabs 02/18/22 [Rx Confirmed 02/03/23] lisinopril 10 mg-hydrochlorothiazide 12.5 mg tablet See Rx Instructions .Route .COMPLEX #90 tabs 03/22/22 [Rx Confirmed 02/03/23] Is last menstrual period known: No Post menopausal: Yes Patient : No : No PFSH Medical History (Updated 02/03/23 @ 10:48 by Radha Reid NP, LALITA) Alcohol use Anxiety Anxiety and depression Cancer Cardiology follow-up encounter Depression Essential (primary) hypertension GERD (gastroesophageal reflux disease) History of echocardiogram History of stress test Hyperlipidemia Hypertension IBS (irritable bowel syndrome) Migraine headache Obesity Osteopenia Ovarian cyst Paratubal cyst Post-menopausal Post-menopausal bleeding Raynauds syndrome Restless legs Shingles Smoker Uterine fibroid Surgical History H/O dilation and curettage History of hysteroscopy History of laparoscopy History of left salpingo-oophorectomy History of right salpingo-oophorectomy (08/10/18) History of tonsillectomy [place] teeth extracted Family History Father CAD (coronary artery disease) CABG age 59 Hypertension Brother Hypertension CAD (coronary artery disease) Myocardial infarction from [place] Grandmother Breast cancer Unknown Breast cancer Other CVA (cerebral vascular accident) Social History household members: spouse current occupational status: employed current occupation: [employer] history of recent travel: No Smoking Status: Current every day smoker tobacco type: e-cigarettes Electronic Cigarette Use: with nicotine alcohol intake: current alcohol intake frequency: a few times a month substance use type: does not use what type of physical activity do you participate in: walking frequency: 3-4 times per week seatbelt use: always do you feel safe at home: Yes additional social history: - Ryan History 0 Elective abortions Hx Para Spontaneous abortions Hx # Term Pregnancies Ectopic pregnancies Hx # Pregnancies Multiple births # of living children HPI Encounter for routine gynecological examination Details: YASSINE RUIZ is a 62 year old who presents for annual exam. Cousin now with breast cancer. Multiple relatives now on same side of family and wants genetic testing. Also significant vaginal dryness. Not using any lubricant or estradiol cream Last PAP: 2020 History of abnormal PAP: no Last mammogram: 11/2022 History of abnormal mammogram: no Colon cancer screenin Other preventative health care screenings: Clara Cotton Np Female Reproductive History Questions: metorrhagia: No, sexually active: No, dyspareunia: Yes and PCB: No Menopausal Symptoms: No hot flashes, No night sweats, No weight change, No mood changes, No difficulty concentrating, No sleep problems and No change in libido Menopausal Treatment: No HRT, No Vaginal Estrogen, No Osphena, No OTC treatments and No prescription non-hormonal treatment ROS Const Constitutional: Denies night sweats Cardio Card: Denies chest pain Resp Resp: Denies cough or dyspnea on exertion GI GI: Denies abdominal pain, bloating, change in stool character, constipation or vomiting : Denies hot flashes Psych Psych: Denies change in libido or difficulty concentrating Exam Const General: cooperative, healthy appearing, no acute distress and well developed Orientation: alert, oriented to person and oriented to place HENMA Head: normal to inspection Neck Neck: normal visual inspection Thyroid: thyroid normal Lymphatic: no lymphadenopathy noted Chest Breast inspection: normal inspection of the breasts and normal inspection of the axillae Breast palpation: normal palpation of the breasts, normal palpation of the axillae and no axillary lymphadenopathy Resp Effort Inspection: normal respiratory effort GI Palpation: soft, no masses and nontender Rectal Exam: deferred External Female Exam: normal external appearance and normal appearance of the urethra Urethra: normal appearance of the urethra and normal palpation Speculum Exam - Vagina: normal vaginal discharge and vagina atrophic Speculum Exam - Cervix: normal appearance of the cervix (pale) Bimanual Exam- Vagina Uterus: normal bimanual exam, uterine size normal, uterine shape normal and non-tender Bimanual Exam- Adnexa, other: normal adnexae, no masses, normal and non-tender Pelvic Support: normal Neuro General: patient alert and patient oriented x3 Psych Affect: normal affect Coding Level of Care Code Off vis,est,prev 40-64yrs Diagnoses Encounter for gynecological examination with abnormal finding Z01.411 Gynecological examination findings: abnormal findings PRESENT Family history of breast cancer Z80.3 Atrophic vaginitis N95.2 Assessment and Plan Assessment and Plan (1) Encounter for routine gynecological examination: Qualifiers: Gynecological examination findings: abnormal findings PRESENT Qualified Code(s): Z01.411 - Encounter for gynecological examination (general) (routine) with abnormal findings (2) Family history of breast cancer: Status: Chronic Comment: maternal grandmother, aunt, cousin (3) Atrophic vaginitis: Status: Acute Comment: restart estradiol cream/[facility] Orders: Orders SCRN MAMM (CAD)W/CRYSTAL BILAT Today Z12.39 - Encounter for other screening for malignant neoplasm of breast Plan Completed breast and pelvic exam Reviewed diet and exercise Pap 2020 Mammogram recent breast self exam encouraged monthly Discussed use, benefits, risks and side effects of estradiol cream and Rx to [facility] pharmacy. Bone density with PCP Colonoscopy 2021 RTO 1 year, prn with problems Radha Reid CNP 02/03/23 1049 <Electronically signed by Radha Reid NP RADIO PERFORMER-C> Date Radha Reid NP RADIO PERFORMER-C Cosigner Signature: Date (if applicable) CC: Katerin Cotton BIOLOGICS SPECIALIST Work Phone: Start: 01-03-2023 End: 01-03-2023 Procedure Note: See Note; NOTES: [facility] [address] [place] [address]. [address] [place] [address] / REHABILITATION SERVICES INITIAL EVALUATION MR#: [id number] Acct: [id number] Name: YASSINE RUIZ Rep #: [id number] : 1960 62 From: Danie Cotton DPT, STELLA, CSCS Referring Dr.: LALITA Cotton Status: REG RCR Insurance: [facility] [id number] SELF PAY INSURANCE Patient's Visit Information Visit Information Visit Information: YASSINE RUIZ is a 62 year old F referred to Physical Therapy by LALITA Vernon with a diagnosis of Vertigo. Date of Evaluation: 01/03/23 Physical Therapist: Danie Cotton DPT, STELLA, CSCS Visit Plan Frequency: 1-2x /Week Duration: 4-6 Weeks Plan: 1-2x/week for 4 weeks for 1. ensure L HD negative and positional vertigo abolished. 2. Consider neck strength and UT, scalene stretches for neck and postural correction 3. Consider general ex as patient bonilla. Subjective Subjective: Vertigo and VELA problems for two weeks. Started insidiously. Vertigo is if she rolls in bed or gets up too fast and lasts a few seconds. It spins for short duration. Went to doctor and said neck was swollen. Has been heating neck for VELA which helps that and neck nd head pain. Has had daily VELA and has needed to take advil. Has h/o VELA but worse since dizzyness. More VELA since vertigo. Has h/o neck pain but worse last two weeks. No regular exercises but tried william. No obvious neck or head ex. Sleep is OK if she does not roll. 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 Hobbies include reading and walking and she is doing those although has cut down on walking due to dizzyness. Pain VELA.neck pain: Pain Intensity (Out of 10): 2 Pain Intensity Range: 0 and 6 Comment: neck pain constant Objective Objective: Walks safe adn I into PT with good balance, I transfers, steps reciprocal with no rail. cervical AROM WFL and without pain today. UE AROM WFL sensation UE WNL to gross light touch. UT and B scalenes stiff adn tend to contract during nystagmus. tender to touch. - R Hallpike + L hallpike up torsional nystagmus 10 seconds. treated with william adn then - L Hallpike jonathan. Balance/Special Test Scores Functional Gait Assessment Score: 26 % Disability: 13.3400 Dizziness Score: 10 Goals Goal 1:: Abolish vertigo lying down at night for 3 days Goal Time Frame: 2-4 Weeks Goal 2:: Pt feel back to baseline neck and head aches and no dizzyness Goal Time Frame: 4-6 Weeks Goal 3:: I appropr management of neck pain VELA if not resolved with vertigo with strength exercises and stretches as needed. Goal Time Frame: 2-4 Weeks Rehabilitation Potential Physical Therapy Diagnosis: BPPV L PC Rehabilitation Potential: Good Anticipated Interventions Patient/Client Instruction: Educate patient on: Condition and Plan of Care For the Purpose of:: To increase tolerance to activity/condition/position Therapeutic Exercise to Include: Strength training, Postural training, Flexibilty training, Passive ROM and Active ROM Comment: positional For the Purpose of:: To decrease pain, To improve nutrient delivery to tissue, To increase tolerance to activity/condition/position, To improve ability of physical actions for home/community/work/leisure and To improve health of tissue Text: Thank you for the opportunity to evaluate your patient. For Medicare and Medicare HMO plans, please review the plan of care and approve it. It will need to be FAXED BACK to us at [phone] for Medicare purposes. For Medicare only, by signing this I certify the plan of care. Please let me know if there are questions or concerns regarding this plan of care. Physician Signature: ___Date: <Electronically signed by Danie Cotton DPT, OCS, CSCS> 01/03/23 1248 CC: LALITA Cotton EBG Signed Katerin Cotton [facility] Work Phone: Start: 12-10-2022 Screening mammography RADIO PERFORMER-Clara Cotton Work Phone: Start: 12-10-2022 End: 12-11-2022 Procedure Note: See Note; NOTES: [facility] Imaging Services [address] [place] [address] SCRN MAMM (CAD)W/CRYSTAL BILAT MR#: [id number] Acct: [id number] Name: YASSINE RUIZ Rep #: [id number] : 1960 F 62 From: Logan collazo MD PCP: LALITA Vernon Status: [facility] Study: SCRN MAMM (CAD)W/CRYSTAL BILAT Date of Exam: 11/13 01/04 Exam# [id number] Ordering Dr: Radha Reid NP RADIO PERFORMER -Clara MAMMOGRAPHY - BILATERAL SCREENING REASON FOR EXAM: Female, 62 years old. Routine annual screening examination. PERTINENT HISTORY: Grandmother with breast cancer. Aunt with breast cancer. Prior left stereotactic breast biopsy. TECHNIQUE: Digital bilateral breast crystal (3D mammographic acquisition) in the CC and MLO projections. 2-D mediolateral oblique (MLO) and craniocaudad (CC) views of both breasts were obtained. CAD: Full Field Digital Mammography with Computer Added Detection was performed. COMPARISON: Comparison is made with prior study December 07, 2021 and September 13, 2020. FINDINGS: Breast Composition: The breasts are heterogeneously dense, which may obscure small masses. There are no dominant masses or suspicious calcifications. Stable small benign-appearing bilateral axillary lymph nodes. The patient clip marker is seen in the deep inferior medial aspect of the left breast. No other significant abnormalities are identified. There has been no significant change since the prior study. BI/SCRN MAMM (CAD)W/CRYSTAL BILAT IMPRESSION: Stable bilateral screening mammogram. Yearly follow-up mammogram recommended. (A) ASSESSMENT CATEGORY: BIRADS Category 2: Benign. A letter regarding these results will be sent to the patient by the facility within 30 days. Approximately 10% of breast cancers are not detected by mammography. A normal mammogram should not delay biopsy of a clinically suspicious abnormality. [id number] Electronically Signed: Logan Russell MD at 10:24 EDT Reading Location ID and State: [facility] / [place] , Service support , CC: LALITA Cotton; LALITA Reid Aviation Electronic Warfare Operator: Signed Sudha Caro DO Work Phone: Start: 11-15-2022 End: 11-15-2022 Procedure Note: See Note; NOTES: [facility] [address], [address] [place] [address] OFFICE VISIT Date of Service: 11/15/22 MR#: [id number] Acct: [id number] Name: YASSINE RUIZ Rep #: [id number] : 1960 Provider: ROSEANN Daniels Age/Sex: 62/F Location: [facility] Status: Signed Intake Vital Signs 02/01/22 10:24 11/15/22 15:22 Height 5 ft 8 in 5 ft 8 in Weight: 215 lb BMI 32.6 BP 108/78 Blood Pressure Location Lt brachial Position Sitting Respiration 16 Pulse 75 Pulse Source Monitor Temp 97.8 F Temp Source Temporal Pulse Oximetry (%) 97 Oxygen Delivery Method room air Intake Visit Reasons: CONGESTION Chief Complaint: Sinus pressure, headache, right ear pain Occupational Therapy Co Director Required: No Accompanied by: Is patient in pain?: Yes Pain scale (1-10): 6 Allergies adhesive tape Allergy (Verified 02/01/22 10:18) Swelling latex Allergy (Verified 02/01/22 10:18) Swelling Medications amitriptyline 50 mg tablet 50 mg PO QHS 08/18/15 [History Confirmed 11/15/22] cholecalciferol (vitamin D3) 25 mcg (1,000 unit) chewable tablet 2,000 unit PO DAILY 07/06/16 [History Confirmed 11/15/22] multivitamin 1 ea PO DAILY 08/04/18 [History Confirmed 11/15/22] alprazolam 0.5 mg tablet 0.5 mg PO DAILY PRN PRN Anxiety 8 days #30 tabs 12/11/20 [History Confirmed 11/15/22] duloxetine 20 mg capsule,delayed release 20 mg PO DAILY 12/11/20 [History Confirmed 11/15/22] calcium citrate 250 mg calcium-vitamin D3 5 mcg (200 unit) tablet (Citracal Regular) 1 tab PO DAILY 12/25/21 [History Confirmed 11/15/22] metoprolol succinate 25 mg tablet,extended release 24 hr (Toprol XL) 25 mg PO DAILY #90 tabs 02/18/22 [Rx Confirmed 11/15/22] lisinopril 10 mg-hydrochlorothiazide 12.5 mg tablet See Rx Instructions .Route .COMPLEX #90 tabs 03/22/22 [Rx Confirmed 11/15/22] methylprednisolone 4 mg tablets in a dose pack (Medrol (Donny)) 4 mg PO PER PKG DIR 6 days #21 tabs 11/15/22 [Rx Confirmed 11/15/22] valacyclovir 1 gram tablet 1,000 mg PO TID 7 days #21 tabs 11/15/22 [Rx Confirmed 11/15/22] PFSH Medical History Alcohol use Anxiety Anxiety and depression Cancer Cardiology follow-up encounter Depression Essential (primary) hypertension GERD (gastroesophageal reflux disease) History of echocardiogram History of stress test Hyperlipidemia Hypertension IBS (irritable bowel syndrome) Migraine headache Obesity Osteopenia Ovarian cyst Paratubal cyst Post-menopausal Post-menopausal bleeding Raynauds syndrome Restless legs Smoker Uterine fibroid Surgical History H/O dilation and curettage History of hysteroscopy History of laparoscopy History of left salpingo-oophorectomy History of right salpingo-oophorectomy (08/10/18) History of tonsillectomy [place] teeth extracted Family History Father CAD (coronary artery disease) CABG age 59 Hypertension Brother Hypertension CAD (coronary artery disease) Myocardial infarction from [place] Grandmother Breast cancer Unknown Breast cancer Other CVA (cerebral vascular accident) Social History household members: spouse current occupational status: employed current occupation: [employer] Interactive history of recent travel: No Smoking Status: Current every day smoker tobacco type: e-cigarettes Electronic Cigarette Use: with nicotine alcohol intake: current alcohol intake frequency: a few times a month substance use type: does not use what type of physical activity do you participate in: walking frequency: 3-4 times per week seatbelt use: always do you feel safe at home: Yes additional social history: - Ryan HPI HPI Chief Complaint: Sinus pressure, headache, right ear pain Details: YASSINE RUIZ, is a 62 F who presents to the office today for complaint of headache, right-sided sinus pressure and right ear pain. Patient states this started 2 to 3 days ago. She states that the episode did start with a itching and burning of the right ear as well as a headache. She denies otorrhea or hearing change/loss. No fever, chills, sweats. No nausea, vomiting, diarrhea. No other associated symptoms or alleviating/aggravating factors. ROS Const Constitutional: No other (6 system ROS completed with pertinent findings in the HPI otherwise normal.) Exam Const General: cooperative and healthy appearing [facility] Head: normocephalic and atraumatic Ears: hearing grossly normal bilaterally, TM's normal bilaterally, EAC's normal and external ear abnormal auricular tenderness on the right Nose: external nose normal Face and sinus: normal facial exam and face symmetric Mouth: oral mucosae normal Throat: posterior oropharynx normal Other: Grouped vesicular lesions just anterior to the right ear with diffuse right ear erythema. Eyes General: appearance normal, both eyes and all related structures Pupils: PERRL Resp Effort Inspection: normal respiratory effort Auscultation: Bilateral: Clear to Auscultation Cardio Rate: regular rate Rhythm: regular rhythm Skin General: no rashes or lesions noted Neuro General: patient alert Psych Appearance: grossly normal Mental Status: mental status grossly normal Coding Level of Care Code Off vis,new,level 3 Diagnoses Shingles B02.9 Assessment and Plan Assessment and Plan (1) Shingles: Status: Acute Medications: New methylprednisolone (Medrol (Donny)) 4 mg PO PER PKG DIR 6 days 21 tabs 0RF valacyclovir 1,000 mg PO TID 7 days 21 tabs 0RF Plan Medrol Dosepak and valacyclovir as prescribed today. Encouraged to get plenty of rest, drink lots of clear liquids, and use Tylenol or Ibuprofen (unless contraindicated) for comfort. Patient also educated on other symptomatic management techniques. To be seen in 7-10 days if no improvement; sooner if worsening of symptoms. Patient advised of potential red flags and when appropriate to report to the ED. Patient verbalized understanding and agreement with all the above. 11/15/22 7470 <Electronically signed by Jed WHITFIELD> Date Jed WHITFIELD Cosigner Signature: Date (if applicable) CC: Hortencia Flores Work Phone: Start: 06-18-2022 End: 06-18-2022 Hand Min 3 Views Procedure Note: See Note; NOTES: [facility] Radiology [address] [place] [address] Hand Min 3 Views MR#: [id number] Acct: [id number] Name: YASSINE RUIZ Rep #: [id number] : 1960 F 62 From: Tj Ybarra DO PCP: LALITA Vernon Status: DEP AMB Study: Hand Min 3 Views Date of Exam: 06/18/22 Exam# [id number] Ordering Dr: Katerin Cotton STUDY: X-RAY - LEFT HAND REASON FOR EXAM: Female, 62 years old. Left hand and wrist pain after opening the jaw for 4 to 5 weeks ago. TECHNIQUE: 3 view(s) of the hand. COMPARISON: Left wrist, June 18, 2022. FINDINGS: Normal radiocarpal articulation. Normal distal radioulnar joint. Normal visualized carpal bones. Normal carpal articulations Normal carpometacarpal articulation of the thumb. Normal second through fifth carpometacarpal joints. Normal metacarpi. Normal metacarpophalangeal joint of the thumb. Normal interphalangeal joint of the thumb. Normal proximal and distal phalanges of the thumb. Normal metacarpophalangeal joints of the second through fifth fingers. Normal proximal and distal interphalangeal joints of the second through fifth fingers. Normal phalanges of the second through fifth fingers. The soft tissue structures are unremarkable. RAD/Hand Min 3 Views IMPRESSION: Normal x-ray examination of the left hand. Electronically Signed: Tj Ybarra DO at 17:55 EST Reading Location ID and State: [address] [place] [address] Tel [phone], Service support , CC: Katerin Cotton RADIO PERFORMER; RADIO PERFORMER-C Katerin Cotton Aviation Electronic Warfare Operator: Signed Katerin Cotton CNP Work Phone: Start: 06-18-2022 End: 06-18-2022 Wrist min 3 Views Procedure Note: See Note; NOTES: [facility] [address] [place] [address] Wrist min 3 Views MR#: [id number] Acct: [id number] Name: YASSINE RUIZ Rep #: [id number] : 1960 F 62 From: Tj Ybarra DO PCP: LALITA Vernon Status: DEP AMB Study: Wrist min 3 Views Date of Exam: 06/18/22 Exam# [id number] Ordering Dr: Katerin Cotton STUDY: X-RAY - LEFT WRIST REASON FOR EXAM: Female, 62 years old. Left wrist pain. Lateral wrist and hand pain since opening jar 4-5 weeks ago. TECHNIQUE: 3 view(s) of the wrist were obtained. COMPARISON: Left hand, June 18, 2022. FINDINGS: Normal visualized distal radius and ulna. Normal radiocarpal articulation. Normal distal radioulnar articulation. Normal carpal bones. Normal carpal articulations. Normal carpometacarpal articulation of the thumb. Normal second through fifth carpometacarpal articulations. Normal visualized metacarpal bones. The soft tissue structures are unremarkable. RAD/Wrist min 3 Views IMPRESSION: Normal x-ray examination of the left wrist. Electronically Signed: Tj Ybarra DO at 17:54 EST Reading Location ID and State: [address] [place] [address] Tel [phone], Service support , CC: Katerin Cotton NP; RADIO PERFORMER-C Katerin Cotton Aviation Electronic Warfare Operator: Signed Katerin Cotton CNP Work Phone: Start: 02-01-2022 End: 02-01-2022 Colonoscopy Report Procedure Note: See Note; NOTES: [facility] Medical Records Department [address] [place] [address] Colonoscopy Report MR#: [id number] Acct: [id number] Name: YASSINE RUIZ Rep #: [id number] : 1960 61 From: Roe Iraheta MD PCP: GOLDIE VernonC [place] Patient Name: Yassine Ruiz Procedure Date: 02/01/2022 11:03 AM Date of : 1960 Age: 61 Procedure: Colonoscopy Indications: Screening for colorectal malignant neoplasm Providers: Roe Iraheta MD Medicines: Monitored Anesthesia Care Patient Profile: This is a 61 year old female. Refer to note in patient chart for documentation of history and physical. Last Colonoscopy: more than 10 years ago. Complications: No immediate complications. Procedure: Pre-Anesthesia Assessment: - Prior to the procedure, a History and Physical was performed, and patient medications and allergies were reviewed. The patient's tolerance of previous anesthesia was also reviewed. The risks and benefits of the procedure and the sedation options and risks were discussed with the patient. All questions were answered, and informed consent was obtained. Prior Anticoagulants: The patient has taken no previous anticoagulant or antiplatelet agents. ASA Grade Assessment: II - A patient with mild systemic disease. After reviewing the risks and benefits, the patient was deemed in satisfactory condition to undergo the procedure. After I obtained informed consent, the scope was passed under direct vision. Throughout the procedure, the patient's blood pressure, pulse, and oxygen saturations were monitored continuously. The pediatric colonoscope was introduced through the anus and advanced to the cecum, identified by appendiceal orifice and ileocecal valve. The colonoscopy was performed without difficulty. The patient tolerated the procedure well. The quality of the bowel preparation was good. Scope In: 11:11:14 AM Scope Withdrawal Time 0 hours 6 minutes 7 seconds Scope Out: 11:22:06 AM Total Procedure Duration Time 0 hours 10 minutes 52 seconds Findings: The entire examined colon appeared normal on direct and retroflexion views. Impression: - The entire examined colon is normal on direct and retroflexion views. - No specimens collected. Recommendation: - Discharge patient to home. - Resume previous diet. - Continue present medications. - Repeat colonoscopy in 10 years for screening purposes. Procedure Code(s): --- Professional --- 89458, Colonoscopy, flexible; diagnostic, including collection of specimen(s) by brushing or washing, when performed (separate procedure) Diagnosis Code(s): --- Professional --- Z12.11, Encounter for screening for malignant neoplasm of colon CPT copyright 2017 [employer]. All rights reserved. The codes documented in this report are preliminary and upon remote coders review may be revised to meet current compliance requirements. Roe Iraheta MD 02/01/2022 11:24:54 AM This report has been signed electronically. Number of Addenda: 0 Note Initiated On: 02/01/2022 11:03 AM 02/01/22 1124 Date Roe Iraheta MD Cosigner Signature: Date (if indicated) CC: RADIO PERFORMER-C Katerin Cotton; Dr. Roe Iraheta MD Date Dictated: 02/01/22 1103 Date Transcribed: Aviation Electronic Warfare Operator: PATEL Flores Work Phone: Start: 02-01-2022 End: 02-01-2022 History and Physical Exam Procedure Note: See Note; NOTES: [facility] Medical Records Department [address] [place] [id number] History Physical Exam 02/01/22 1058 MR#: [id number] Acct: [id number] Name: YASSINE RUIZ Rep #: [id number] : 1960 61 From: Roe Iraheta MD PCP: LALITA Vernon Status:[facility] Location: [place] [id number] History and Physical Date of Admission: 02/01/22 Intake Vital Signs ??? 12/28/2212:01 Height 5 ft 8 in Weight: 211 lb 4 oz BMI 32.1 BP 130/86 H Blood Pressure Location Rt brachial Position Sitting Respiration 16 Pulse 86 Pulse Source Monitor Temp 97.6 F L Temp Source Temporal Pulse Oximetry (%) 100 Oxygen Delivery Method room air Intake Visit Reasons:???COLONOSCOPY Chief Complaint: Colonoscopy Occupational Therapy Co Director Required: No Is patient in pain?: No Allergies adhesive tape Allergy (Verified 12/28/21 13:02) Swellinglatex Allergy (Verified 12/28/21 13:02) Swelling Medications amitriptyline 50 mg tablet 50 mg PO QHS 08/18/15 [History Confirmed 12/28/21] cholecalciferol (vitamin D3) 25 mcg (1,000 unit) chewable tablet 2,000 unit PO DAILY 07/06/16 [History Confirmed 12/28/21] multivitamin 1 ea PO DAILY 08/04/18 [History Confirmed 12/28/21] alprazolam 0.5 mg tablet PO PRN 8 days #30 tabs 12/11/20 [History Confirmed 12/28/21] duloxetine 20 mg capsule,delayed release 20 mg PO DAILY 12/11/20 [History Confirmed 12/28/21] lisinopril 10 mg-hydrochlorothiazide 12.5 mg tablet See Rx Instructions .Route .COMPLEX #90 tabs 03/12/21 [Rx Confirmed 12/28/21] metoprolol succinate 25 mg tablet,extended release 24 hr (Toprol XL) 25 mg PO DAILY #90 tabs 04/16/21 [Rx Confirmed 12/28/21] calcium citrate 250 mg calcium-vitamin D3 5 mcg (200 unit) tablet (Citracal Regular) 1 tab PO TID 12/25/21 [History Confirmed 12/28/21] PFSH Medical History??? Anxiety and depression Essential (primary) hypertension GERD (gastroesophageal reflux disease) Hyperlipidemia IBS (irritable bowel syndrome) Obesity Osteopenia Ovarian cyst Paratubal cyst Post-menopausal bleeding Raynauds syndrome Uterine fibroid Surgical History??? H/O dilation and curettage History of hysteroscopy History of laparoscopy History of left salpingo-oophorectomy History of right salpingo-oophorectomy (08/10/18) History of tonsillectomy [place] teeth extracted Family History??? Father CAD (coronary artery disease) ? CABG age 59 HypertensionBrother Hypertension CAD (coronary artery disease) Myocardial infarction ? from [place] Breast cancerUnknown Breast cancerOther CVA (cerebral vascular accident) Social History??? household members:??? spouse current occupational status:??? employed current occupation:??? [employer] history of recent travel:??? No Smoking Status:??? Former smoker Electronic Cigarette Use:??? with nicotine alcohol intake:??? current alcohol intake frequency: a few times a month substance use type:??? does not use what type of physical activity do you participate in:??? walking frequency:??? 3-4 times per week seatbelt use:??? always do you feel safe at home:??? Yes additional social history:??? - Ryan CORDOVA HPI HPI: 61-year-old female here for screening colonoscopy.??? Her last colonoscopy was about 20 years ago.??? She denies any abdominal pain or blood in the stool.??? She has no family history of colon cancer. ROS General General: Yes weight change and fatigue; No appetite, colon cancer, breast cancer or weakness HEENT HEENT: Yes eye surgery; No difficulty swallowing, eye injury, swollen glands or hoarseness Endo Endocrine: No thyroid disease, diabetes mellitus, thyroid cancer, Hair loss, heat intolerance or cold intolerance Skin Skin: No rash or changing moles Musc Musculoskeletal: No back problems, arthritis, rheumatoid arthritis, gout or joint pain Cardio Cardiovascular: Yes high blood pressure; No murmur, pacemaker, heart disease, atrial fibrillation, heart attack, heart stent, palpitations, shortness of breat with exertion or chest pain Psych Psychiatric: Yes depression and anxiety; No hearing voices Resp Respiratory: No shortness of breath, No sleep apnea, No cough, No COPD, No asthma, No emphysema and No wheezing Gastro Gastrointestinal: No abdominal pain, No nausea or vomiting, No diarrhea, No constipation, No blood in stool, No acid reflux, No hemorrhoids, No ulcers, No gallbladder problem and No black,tarry stools Quan Hematologic: No blood thinners, No blood disorders, No bleeding, No anemia and No blood clots Neuro Neurologic: No system reviewed and no additional complaints, except as documented, No as per HPI, No abnormal gait, No abnormal hearing, No abnormal movements, No abnormal speech, No behavioral changes, No burning sensations, No confusion, No convulsions, No disequilibrium, No dizziness, No localized weakness, No frequent falls, No headache(s), No lack of coordination, No loss of vision, No memory loss, No numbness, No other visual disturbances, No radicular pain, No restless legs, No sensory deficit, No syncope, No tingling, No tremor(s), No weakness and No other Exam Const General: cooperative Orientation: alert and oriented x3 HENMT Head: normal to inspection Neck Neck: normal visual inspection and full ROM Chest Chest palpation inspection: normal inspection of the chest Resp Effort Inspection: normal respiratory effort Auscultation: clear to auscultation bilaterally Cardio Rate: regular rate Rhythm: regular rhythm GI Inspection: non-distended Palpation: soft and nontender Skin General: no rashes or lesions noted Neuro General: patient alert and patient oriented x3 Extrem General: full ROM Psych Appearance: grossly normal Mental Status: mental status grossly normal Assessment and Plan Assessment and Plan (1) Screen for colon cancer: ?Status:???Acute ?Plan: I explained endoscopy in detail to the patient.??? I explained the risks including but not limited to stroke or heart attack with anesthesia, perforation of the GI tract, bleeding, infection.??? I explained that any of these could necessitate further emergency surgery.??? The patient understands and all questions were answered sufficiently.??? The patient wishes to proceed with procedure. Roe Iraheta MD Pager: [facility] [address] [place] [address], [address] [place] [address] Office: I have re-examined the patient. There are no clinical changes since date of exam. 02/01/22 1058 <Electronically signed by Roe Iraheta MD> Cosigner Signature (if applicable): CC: RADIO PERFORMERShu Cotton; Dr. Roe Iraheta MD Signed Hortencia Flores Work Phone: Start: 12-28-2021 End: 12-28-2021 Surgery Visit Report Procedure Note: See Note; NOTES: [facility] [address] [place] [address] OFFICE VISIT Date of Service: 12/28/21 MR#: [id number] Acct: [id number] Name: YASSINE RUIZ Rep #: [id number] : 1960 Provider: Dr. Roe johnson MD Age/Sex: 61/F Location: [facility] Status: Signed Intake Vital Signs 12/28/21 13:01 Height 5 ft 8 in Weight: 211 lb 4 oz BMI 32.1 BP 130/86 H Blood Pressure Location Rt brachial Position Sitting Respiration 16 Pulse 86 Pulse Source Monitor Temp 97.6 F L Temp Source Temporal Pulse Oximetry (%) 100 Oxygen Delivery Method room air Intake Visit Reasons: COLONOSCOPY Chief Complaint: Colonoscopy Occupational Therapy Co Director Required: No Is patient in pain?: No Allergies adhesive tape Allergy (Verified 12/28/21 13:02) Swelling latex Allergy (Verified 12/28/21 13:02) Swelling Medications amitriptyline 50 mg tablet 50 mg PO QHS 08/18/15 [History Confirmed 12/28/21] cholecalciferol (vitamin D3) 25 mcg (1,000 unit) chewable tablet 2,000 unit PO DAILY 07/06/16 [History Confirmed 12/28/21] multivitamin 1 ea PO DAILY 08/04/18 [History Confirmed 12/28/21] alprazolam 0.5 mg tablet PO PRN 8 days #30 tabs 12/11/20 [History Confirmed 12/28/21] duloxetine 20 mg capsule,delayed release 20 mg PO DAILY 12/11/20 [History Confirmed 12/28/21] lisinopril 10 mg-hydrochlorothiazide 12.5 mg tablet See Rx Instructions .Route .COMPLEX #90 tabs 03/12/21 [Rx Confirmed 12/28/21] metoprolol succinate 25 mg tablet,extended release 24 hr (Toprol XL) 25 mg PO DAILY #90 tabs 04/16/21 [Rx Confirmed 12/28/21] calcium citrate 250 mg calcium-vitamin D3 5 mcg (200 unit) tablet (Citracal Regular) 1 tab PO TID 12/25/21 [History Confirmed 12/28/21] PFSH Medical History Anxiety and depression Essential (primary) hypertension GERD (gastroesophageal reflux disease) Hyperlipidemia IBS (irritable bowel syndrome) Obesity Osteopenia Ovarian cyst Paratubal cyst Post-menopausal bleeding Raynauds syndrome Uterine fibroid Surgical History H/O dilation and curettage History of hysteroscopy History of laparoscopy History of left salpingo-oophorectomy History of right salpingo-oophorectomy (08/10/18) History of tonsillectomy [place] teeth extracted Family History Father CAD (coronary artery disease) CABG age 59 Hypertension Brother Hypertension CAD (coronary artery disease) Myocardial infarction from [place] Grandmother Breast cancer Unknown Breast cancer Other CVA (cerebral vascular accident) Social History household members: spouse current occupational status: employed current occupation: [employer] history of recent travel: No Smoking Status: Former smoker Electronic Cigarette Use: with nicotine alcohol intake: current alcohol intake frequency: a few times a month substance use type: does not use what type of physical activity do you participate in: walking frequency: 3-4 times per week seatbelt use: always do you feel safe at home: Yes additional social history: - Ryan HPI HPI HPI: 61-year-old female here for screening colonoscopy. Her last colonoscopy was about 20 years ago. She denies any abdominal pain or blood in the stool. She has no family history of colon cancer. ROS General General: Yes weight change and fatigue; No appetite, colon cancer, breast cancer or weakness HEENT HEENT: Yes eye surgery; No difficulty swallowing, eye injury, swollen glands or hoarseness Endo Endocrine: No thyroid disease, diabetes mellitus, thyroid cancer, Hair loss, heat intolerance or cold intolerance Skin Skin: No rash or changing moles Musc Musculoskeletal: No back problems, arthritis, rheumatoid arthritis, gout or joint pain Cardio Cardiovascular: Yes high blood pressure; No murmur, pacemaker, heart disease, atrial fibrillation, heart attack, heart stent, palpitations, shortness of breat with exertion or chest pain Psych Psychiatric: Yes depression and anxiety; No hearing voices Resp Respiratory: No shortness of breath, No sleep apnea, No cough, No COPD, No asthma, No emphysema and No wheezing Gastro Gastrointestinal: No abdominal pain, No nausea or vomiting, No diarrhea, No constipation, No blood in stool, No acid reflux, No hemorrhoids, No ulcers, No gallbladder problem and No black,tarry s tools Quan Hematologic: No blood thinners, No blood disorders, No bleeding, No anemia and No blood clots Neuro Neurologic: No system reviewed and no additional complaints, except as documented, No as per HPI, No abnormal gait, No abnormal hearing, No abnormal movements, No abnormal speech, No behavioral changes, No burning sensations, No confusion, No convulsions, No disequilibrium, No dizziness, No localized weakness, No frequent falls, No headache(s), No lack of coordination, No loss of vision, No memory loss, No numbness, No other visual disturbances, No radicular pain, No restless legs, No sensory deficit, No syncope, No tingling, No tremor(s), No weakness and No other Exam Const General: cooperative Orientation: alert and oriented x3 HENMT Head: normal to inspection Neck Neck: normal visual inspection and full ROM Chest Chest palpation inspection: normal inspection of the chest Resp Effort Inspection: normal respiratory effort Auscultation: clear to auscultation bilaterally Cardio Rate: regular rate Rhythm: regular rhythm GI Inspection: non-distended Palpation: soft and nontender Skin General: no rashes or lesions noted Neuro General: patient alert and patient oriented x3 Extrem General: full ROM Psych Appearance: grossly normal Mental Status: mental status grossly normal Assessment and Plan Assessment and Plan (1) Screen for colon cancer: Status: Acute Plan: I explained endoscopy in detail to the patient. I explained the risks including but not limited to stroke or heart attack with anesthesia, perforation of the GI tract, bleeding, infection. I explained that any of these could necessitate further emergency surgery. The patient understands and all questions were answered sufficiently. The patient wishes to proceed with procedure. 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 [place] [address] OFFICE VISIT Date of Service: 12/25/21 MR#: [id number] Acct: [id number] Name: YASSINE RUIZ Rep #: [id number] : 1960 Provider: LALITA stephenson Age/Sex: 61/F Location: [facility] Status: Signed Intake Vital Signs 12/12/20 14:12 12/25/21 08:51 12/25/21 08:53 Height 5 ft 8 in 5 ft 8 in 5 ft 8 in Weight: 212 lb BMI 32.2 BP 130/84 H Intake Visit Reasons: Annual (GALLERY INTERN) Chief Complaint: est annual Occupational Therapy Co Director Required: No Is patient in pain?: No Allergies adhesive tape Allergy (Verified 12/18/21 07:16) Swelling latex Allergy (Verified 12/18/21 07:16) Swelling Medications amitriptyline 50 mg tablet 50 mg PO QHS 08/18/15 [History Confirmed 12/18/21] cholecalciferol (vitamin D3) 25 mcg (1,000 unit) chewable tablet 2,000 unit PO DAILY 07/06/16 [History Confirmed 12/25/21] multivitamin 1 ea PO DAILY 08/04/18 [History Confirmed 12/25/21] alprazolam 0.5 mg tablet PO PRN 8 days #30 tabs 12/11/20 [History Confirmed 12/25/21] duloxetine 20 mg capsule,delayed release 20 mg PO DAILY 12/11/20 [History Confirmed 12/25/21] lisinopril 10 mg-hydrochlorothiazide 12.5 mg tablet See Rx Instructions .Route .COMPLEX #90 tabs 03/12/21 [Rx Confirmed 12/25/21] metoprolol succinate 25 mg tablet,extended release 24 hr (Toprol XL) 25 mg PO DAILY #90 tabs 04/16/21 [Rx Confirmed 12/25/21] calcium citrate 250 mg calcium-vitamin D3 5 mcg (200 unit) tablet (Citracal Regular) 1 tab PO TID 12/25/21 [History Confirmed 12/25/21] Is last menstrual period known: No Post menopausal: Yes Patient : No : No PFSH Medical History Anxiety and depression Essential (primary) hypertension GERD (gastroesophageal reflux disease) Hyperlipidemia IBS (irritable bowel syndrome) Obesity Osteopenia Ovarian cyst Paratubal cyst Post-menopausal bleeding Raynauds syndrome Uterine fibroid Surgical History H/O dilation and curettage History of hysteroscopy History of laparoscopy History of left salpingo-oophorectomy History of right salpingo-oophorectomy (08/10/18) History of tonsillectomy [place] teeth extracted Family History (Updated 12/25/21 @ 08:53 by Radha Rodríguez) Father CAD (coronary artery disease) CABG age 59 Hypertension Brother Hypertension CAD (coronary artery disease) Myocardial infarction from [place] Grandmother Breast cancer Unknown Breast cancer Other CVA (cerebral vascular accident) Social History household members: spouse current occupational status: employed current occupation: [employer] Interactive history of recent travel: No Smoking Status: Former smoker Electronic Cigarette Use: with nicotine alcohol intake: current alcohol intake frequency: a few times a month substance use type: does not use what type of physical activity do you participate in: walking frequency: 3-4 times per week seatbelt use: always do you feel safe at home: Yes additional social history: - Ryan History 0 Elective abortions Hx Para Spontaneous abortions Hx # Term Pregnancies Ectopic pregnancies Hx # Pregnancies Multiple births # of living children HPI Encounter for routine gynecological examination Details: YASSINE RUIZ is a 61 year old who presents for annual exam. Never started estrogen cream. Feels very dry and irritated. Last PAP: 2020 History of abnormal PAP: no Last mammogram: 11/2021 History of abnormal mammogram: benign bx Colon cancer screening: due Other preventative health care screenings: Yury JOSEPH Female Reproductive History Questions: metorrhagia: No, sexually active: No, dyspareunia: Yes and PCB: No Menopausal Symptoms: No hot flashes, No night sweats, No weight change, No mood changes, No difficulty concentrating, No sleep problems and No change in libido Menopausal Treatment: No HRT, No Vaginal Estrogen, No Osphena, No OTC treatments and No prescription non-hormonal treatment ROS Const Constitutional: Denies night sweats Cardio Card: Denies chest pain Resp Resp: Denies cough or dyspnea on exertion GI GI: Denies abdominal pain, bloating, change in stool character, constipation or vomiting : Reports as per HPI and vaginal dryness; Denies hot flashes Psych Psych: Denies change in libido or difficulty concentrating Exam Const General: cooperative, healthy appearing, no acute distress and well developed Orientation: alert, oriented to person and oriented to place HENMT Head: normal to inspection Neck Neck: normal visual inspection Thyroid: thyroid normal Lymphatic: no lymphadenopathy noted Chest Breast inspection: normal inspection of the breasts and normal inspection of the axillae Breast palpation: normal palpation of the breasts, normal palpation of the axillae and no axillary lymphadenopathy Resp Effort Inspection: normal respiratory effort GI Palpation: soft, no masses and nontender Rectal Exam: deferred External Female Exam: normal external appearance and normal appearance of the urethra Urethra: normal appearance of the urethra and normal palpation Speculum Exam - Vagina: normal vaginal discharge and vagina atrophic Speculum Exam - Cervix: normal appearance of the cervix (pale) Bimanual Exam- Vagina Uterus: normal bimanual exam, uterine size normal, uterine shape normal and non-tender Bimanual Exam- Adnexa, other: normal adnexae, no masses, normal and non-tender Pelvic Support: normal Neuro General: patient alert and patient oriented x3 Psych Affect: normal affect Coding Level of Care Code Off vis,est,prev 40-64yrs Diagnoses Encounter for routine gynecological examination Z01.411 Gynecological examination findings: abnormal findings PRESENT Atrophic vaginitis N95.2 Obesity E66.9 Hyperlipidemia E78.5 Assessment and Plan Assessment and Plan (1) Encounter for routine gynecological examination: Qualifiers: Gynecological examination findings: abnormal findings PRESENT Qualified Code(s): Z01.411 - Encounter for gynecological examination (general) (routine) with abnormal findings (2) Atrophic vaginitis: Status: Acute Comment: estradiol cream (3) Obesity: Status: Chronic (4) Hyperlipidemia: Status: Chronic Orders: Orders SCRN MAMM (CAD)W/CRYSTAL BILAT Today Vitamin D,25 Hydroxy Today Z13.21 - Encounter for screening for nutritional disorder Glucose Today Z13.1 - Encounter for screening for diabetes mellitus Lipid Profile Today Z13.220 - Encounter for screening for lipoid disorders Referrals General Surgery Z12.11 - Encounter for screening for malignant neoplasm of colon Plan Completed breast and pelvic exam Reviewed diet and exercise Pap 2020 Mammogram 11/2021 breast self exam encouraged monthly Reviewed restart estradiol cream, use of coconut oil Colonoscopy refer gen surgery Bone density 2020 Health screen labs RTO 1 year, prn with problems Radha Reid [facility] 12/25/21 0933 <Electronically signed by Radha Reid NP RADIO PERFORMER-C> Date Radha Reid NP, NP-C Cosigner Signature: Date (if applicable) CC: Hortencia Flores Work Phone: Start: 12-18-2021 End: 12-18-2021 Cardiology Visit Report Procedure Note: See Note; NOTES: [facility] [address] [place], [place] [id number] OFFICE VISIT Date of Service: 12/18/21 MR#: [id number] Acct: [id number] Name: YASSINE RUIZ Rep #: [id number] : 1960 Provider: Dr. Reggie Sparks MD Age/Sex: 61/F Location: [facility] Status: Signed HPI HPI History of Present Illness Details: Pleasant 61-year-old lady that presents to the office today for an out patient cardiovascular appointment. She has a history of hypertension and an abnormal EKG. She was evaluated with the above with an echocardiogram which was normal. She had previously been on the beta-salazar and Aldactone for high blood pressure and this was discontinued and she was put on hydrochlorothiazide with lisinopril. She says that her blood pressures at home have been doing quite well. From a cardiac standpoint, the patient is doing well. She does occassionaly feel palpitations-she states it is not that often. She describes this as a fast heart rate that doesn't last very long. She has an apple watch and says that her average heart rate is approximately 81 bpm for the last 30 days. She denies any chest pain, pressure or heaviness. She does states she gets SOB/winded when walking up a hill, and cleaning the house. She denies Orthopnea, and PND. She denies any decrease in energy level, myalgias, or claudication. She does not have any edema, or sudden weight gain. She denies dizziness, lightheadedness, syncopal or near syncopal episodes, and headaches. Intake Vital Signs 12/11/20 08:16 12/12/20 14:12 12/18/21 07:15 12/18/21 07:16 Height 5 ft 8 in 5 ft 8 in 5 ft 8 in 5 ft 8 in Weight: 211 lb BMI 32.1 BP 129/89 H Respiration 16 Pulse 106 H Pulse Oximetry (%) 99 Intake Visit Reasons: 1 Y FU Allergies adhesive tape Allergy (Verified 12/18/21 07:16) Swelling latex Allergy (Verified 12/18/21 07:16) Swelling Medications amitriptyline 50 mg tablet 50 mg PO QHS 08/18/15 [History Confirmed 12/18/21] cholecalciferol (vitamin D3) 25 mcg (1,000 unit) chewable tablet 2,000 unit PO DAILY 07/06/16 [History Confirmed 12/18/21] multivitamin 1 ea PO DAILY 08/04/18 [History Confirmed 12/18/21] calcium acetate 667 mg tablet 1,334 mg PO DAILY 12/03/19 [History Confirmed 12/18/21] alprazolam 0.5 mg tablet PO PRN 8 days #30 tabs 12/11/20 [History Confirmed 12/18/21] duloxetine 20 mg capsule,delayed release 20 mg PO DAILY 12/11/20 [History Confirmed 12/18/21] lisinopril 10 mg-hydrochlorothiazide 12.5 mg tablet See Rx Instructions .Route .COMPLEX #90 tabs 03/12/21 [Rx Confirmed 12/18/21] metoprolol succinate 25 mg tablet,extended release 24 hr (Toprol XL) 25 mg PO DAILY #90 tabs 04/16/21 [Rx Confirmed 12/18/21] Ejection fraction %: 60 to 64 PFSH Medical History Anxiety and depression Essential (primary) hypertension GERD (gastroesophageal reflux disease) Hyperlipidemia IBS (irritable bowel syndrome) Obesity Osteopenia Ovarian cyst Paratubal cyst Post-menopausal bleeding Raynauds syndrome Uterine fibroid Surgical History H/O dilation and curettage History of hysteroscopy History of laparoscopy History of left salpingo-oophorectomy History of right salpingo-oophorectomy (08/10/18) History of tonsillectomy [place] teeth extracted Family History Father CAD (coronary artery disease) CABG age 59 Hypertension Brother Hypertension CAD (coronary artery disease) Myocardial infarction from [place] Other CVA (cerebral vascular accident) Social History household members: spouse current occupational status: employed current occupation: [employer] Interactive history of recent travel: No Smoking Status: Former smoker Electronic Cigarette Use: with nicotine alcohol intake: current alcohol intake frequency: a few times a month substance use type: does not use what type of physical activity do you participate in: walking frequency: 3-4 times per week seatbelt use: always do you feel safe at home: Yes additional social history: - Ryan MUELLER Const Const: Negative for fatigue, weakness, headache(s), frequent falls, difficulty sleeping or excessive sweating Eyes Eyes: Negative for loss of peripheral vision, transient loss of vision, blurry vision, double vision or tunnel vision ENT ENT: Negative for headache(s), dizziness, Nosebleed/epistaxis or balance problems Cardio Chest Pain: No Palpitations: No Edema: None Muscle aches with walking: None Additional Details: feels anxious when HR elevated Resp Respiratory: Negative for SOB with activity, SOB at rest, SOB orthopnea SOB lying down, Cough or paroxysmal nocturnal dyspnea GI GI: Negative nausea, vomiting, heartburn or black,tarry stools : Negative for hematuria Musc Musc: Negative for muscle aches/ myalgia, muscle weakness, joint pain or balance problems Skin Skin: Negative non-healing lesions, rash or unusual bruising Neuro Neuro: Negative for dizziness, lightheadedness, near syncope, syncope, orthostatic symptoms, frequent falls, headache(s), weakness, confusion, memory loss, blurry vision, double vision, vertigo or lack of coordination Quan Hematologic/Lymphatic: Negative for easy bleeding or easy bruising Endo Endo: Negative for fatigue, excessive sweating, flushing or increased thirst/drinking Psych Psych: Negative for anxiety or depression Allergy Allergy/Immunology: Negative for hives and Negative for rash Cardiology Exam Const Appearance: cooperative and no acute distress Orientation: alert and oriented x3 Head Head: normal to inspection Ears: hearing grossly normal bilaterally Nose: external nose normal Face and Sinus: face symmetric Eyes General: appearance normal, both eyes and all related structures Eyelids: eyelids normal Conjunctivae: conjunctivae normal Pupils: PERRL and pupil size EOM: EOM intact bilaterally Neck Neck: normal visual inspection Carotids: Negative bruit Chest Chest inspection: normal inspection of the chest and normal respiratory effort Auscultation: Bilateral: Clear to Auscultation Cardio Palpation: normal PMI Rate: regular rate Rhythm: regular rhythm Heart sounds: S1 normal and S2 normal; Negative rub, gallop or murmur GI GI: normal to inspection and soft; Negative no hepatosplenomegaly Neuro General: patient alert, patient oriented x3 and CN's II-XI intact bilaterally Skin Skin: no rashes or lesions noted Extremities Pulses: Normal: Right Posterior Tibial Pulse, Left Posterior Tibial Pulse, Right Radial Pulse and Left Radial Pulse Lower Extremity Edema: None: Bilateral Psych Psychological: normal affect Supplemental Info Supplemental Information ECHOCARDIOGRAM 10/23/2018 Interpretation Summary Normal LV size. Left ventricular systolic function is normal. The estimated ejection fraction is 60 %. Stage 1 diastolic dysfunction. Mild (1+) tricuspid valve insufficiency. Laboratory Tests 04/19/20 06:14 Triglycerides 142 Cholesterol 212 H LDL Cholesterol 115 HDL Cholesterol 69 Portions of this documentation were copied and pasted from previous office visit notes to provide a cohesive continuity of the history. The note has been reviewed, edited, and updated, as necessary. Labs: LDL Cholesterol 115 mg/dL (0-130) HDL Cholesterol 69 mg/dL (40-) Triglycerides 142 mg/dL (-199) VLDL Cholesterol 28 mg/dL (5-40) Diagnostics: Echocardiogram Abdomen US Pulmonary: No Data to Display Assessment and Plan Assessment and Plan (1) Essential (primary) hypertension: Status: Chronic Plan: Her blood pressure appears to be under good control at this particular time I would not make any changes with regard to the above. She will remain on the same medications. (2) Sinus tachycardia: Status: Acute Plan: She did previously have evidence of sinus tachycardia. Her heart rate appears to be much better at this time. I will however like us to check a more recent TSH level. Thank you for allowing me to participate in the care of your patient. Please don't hesitate to call if any issues arise. 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) Coding Level of Care Code Off vis,est,level 3 Diagnoses Essential (primary) hypertension I10 Sinus tachycardia R00.0 Coding Level of Care Code Off vis,est,level 3 Diagnoses Essential (primary) hypertension I10 Sinus tachycardia R00.0 12/18/21 1010 <Electronically signed by Reggie Sparks MD> Date Reggie Sparks MD Cosigner Signature: Date (if applicable) CC: RADIO PERFORMER-C Katerin Cotton Hortencia Flores Work Phone: Start: 12-07-2021 Screening mammography Start: 12-07-2021 End: 12-07-2021 SCRN MAMM (CAD)W/CRYSTAL BILAT Procedure Note: See Note; NOTES: [facility] Imaging Services [address] [place] [address] SCRN MAMM (CAD)W/CRYSTAL BILAT MR#: [id number] Acct: [id number] Name: YASSINE RUIZ Rep #: [id number] : 1960 F 61 From: Logan collazo MD PCP: Katerin Cotton RADIO PERFORMER-C Status: [facility] Study: SCRN MAMM (CAD)W/CRYSTAL BILAT Date of Exam: 11/13 10/03 Exam# [id number] Ordering Dr: Radha Reid NP RADIO PERFORMER -C MAMMOGRAPHY - BILATERAL SCREENING REASON FOR EXAM: Female, 61 years old. Routine annual screening examination. PERTINENT HISTORY: Grandmother with breast cancer. Prior left stereotactic breast biopsy. TECHNIQUE: Digital bilateral breast crystal (3D mammographic acquisition) in the CC and MLO projections. 2-D mediolateral oblique (MLO) and craniocaudad (CC) views of both breasts were obtained. CAD: Full Field Digital Mammography with Computer Added Detection was performed. COMPARISON: Comparison is made with prior study dated 09/13/2020 and 09/07/2019. FINDINGS: Breast Composition: The breasts are heterogeneously dense, which may obscure small masses. There are no dominant masses or suspicious calcifications. Stable small benign-appearing bilateral axillary lymph nodes. No other significant abnormalities are identified. There has been no significant change since the prior study. BI/SCRN MAMM (CAD)W/CRYSTAL BILAT IMPRESSION: Stable bilateral screening mammogram. Yearly follow-up mammogram recommended. (A) ASSESSMENT CATEGORY: BIRADS Category 2: Benign. A letter regarding these results will be sent to the patient by the facility within 30 days. Approximately 10% of breast cancers are not detected by mammography. A normal mammogram should not delay biopsy of a clinically suspicious abnormality. [id number] Electronically Signed: Logan Russell MD at 8:52 EDT Reading Location ID and State: [facility] / [place] , Service support , CC: LALITA Cotton; LALITA Reid Aviation Electronic Warfare Operator: Signed Sudha Caro DO Work Phone: Start: 12-29-2020 End: 12-29-2020 Echo Complete W/ Contrast Comments: See Note; NOTES: [facility] [address] [place] [address] Echo Complete W/ Contrast 12/29/20 1358 MR#: [id number] Acct: [id number] Name: YASSINE RUIZ Rep #: [id number] : 1960 60 From: Reggie Sparks MD Attending Dr: LALITA Chapa Status: REG C Ordering Dr: Leigh Amador NP RADIO PERFORMER-C Date: 12/29/20 Location: [facility] Sex: F C Admitted: Version 2 Reason For Study: Dyspnea/SOB Procedure This was a 2D Doppler, Color Flow transthoracic echocardiogram. The study was technically difficult. Contrast injection was performed. Exam performed in department. Left Ventricle Normal LV size. Left ventricular systolic function is normal. The estimated ejection fraction is 60 %. Stage 1 diastolic dysfunction. No regional wall motion abnormalities noted. Right Ventricle Normal RV size. Normal systolic function. Atria Normal left atrium. Normal right atrium. Mitral Valve Normal mitral valve. Tricuspid Valve Normal tricuspid valve. Aortic Valve Normal aortic valve. Pulmonic Valve Normal pulmonic valve. Great Vessels Normal aortic root. The pulmonary artery is normal size. Normal inferior vena cava. Pericardium/Pleural No pericardial effusion. Medication 22 gauge I.V. with prn adaptor inserted into left arm. Diluted definity 2ml given slow IV push to enhance endocardial definition. MMode/2D Measurements Calculations LVIDd: 4.3 cm IVSd: 0.94 cm Ao root diam: 3.3 cm LVIDs: 2.9 cm LVPWd: 1.3 cm LA dimension: 3.1 cm FS: 32.0 % LAV(MOD-bp): 36.4 ml LA A4 area: 15.4 cm2 LAV(MOD-bp) Indexed: 17.7 ml/m2 LAV(MOD-sp2): 31.7 ml LAV(MOD-sp4): 39.8 ml Time Measurements MV dec time: 0.25 sec Doppler Measurements Calculations MV E max aubree: 63.3 cm/sec Lat Peak E' Aubree: 7.0 cm/sec Med Peak E' Aubree: 7.0 cm/sec MV A max aubree: 81.2 cm/sec E/E' lat: 9.0 E/E' med: 9.1 MV E/A: 0.78 MV V2 max: 84.8 cm/sec MV P1/2t max aubree: 67.9 cm/sec Ao V2 max: 116.8 cm/sec MV max P.9 mmHg MV P1/2t: 79.6 msec Ao max P.5 mmHg MV V2 mean: 47.4 cm/sec MV dec slope: 250.1 cm/sec2 MV mean P.0 mmHg MV V2 VTI: 21.4 cm MVA(P1/2t): 2.8 cm2 LV V1 max: 102.8 cm/sec PA V2 max: 82.8 cm/sec LV V1 max P.2 mmHg ECHO/Echo Complete W/ Contrast Interpretation Summary Normal LV size. Left ventricular systolic function is normal. The estimated ejection fraction is 60 %. Stage 1 diastolic dysfunction. Contrast injection was performed. _ Ordering Physician: Leigh Amador Referring Physician: Hortencia Flores Performed By: Carloz Kenny RCS 12/29/20 6268 Date Reggie Sparks MD CC: RADIO PERFORMER-Clara Amador; RADIO PERFORMERShu Flores Date Dictated: 12/29/20 1358 Date Transcribed: 12/29/20 1557 Aviation Electronic Warfare Operator: Signed Hortencia Flores [facility] Work Phone: Start: 12-12-2020 End: 12-12-2020 Sap Plant Maintenance Consultant Office Visit Report Comments: See Note; NOTES: [facility] [place] 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) Allergies latex Allergy (Verified 12/12/20 14:15) Swelling plastic tape Allergy (Uncoded 12/12/20 14:15) Swelling Medications amitriptyline 50 mg PO QHS 08/18/15 [History Confirmed 12/12/20] cholecalciferol (vitamin D3) 2,000 unit PO DAILY 07/06/16 [History Confirmed 12/12/20] multivitamin 1 ea PO DAILY 08/04/18 [History Confirmed 12/12/20] calcium acetate 667 mg tablet 1,334 mg PO DAILY tab 12/03/19 [History Confirmed 12/12/20] lisinopril 10 mg-hydrochlorothiazide 12.5 mg tablet 1 tab PO DAILY #90 tab 12/17/19 [Rx Confirmed 12/12/20] metoprolol succinate 25 mg tablet,extended release 24 hr 25 mg PO DAILY #90 tab 01/25/20 [Rx Confirmed 12/12/20] alprazolam 0.5 mg tablet PO PRN 8 Days #30 tab 12/11/20 [History Confirmed 12/12/20] duloxetine 20 mg capsule,delayed release 20 mg PO DAILY cap 12/11/20 [History Confirmed 12/12/20] estradiol See Rx Instructions VAGINAL .COMPLEX #42.5 g 12/12/20 [Rx Confirmed 12/12/20] Post menopausal: Yes Nurse's Note: recent US showed uterine fibroid PFSH Medical History (Updated 12/12/20 @ 14:45 by Radha Reid NP, LALITA) Anxiety and depression Essential (primary) hypertension GERD (gastroesophageal reflux disease) Hyperlipidemia IBS (irritable bowel syndrome) Obesity Osteopenia Ovarian cyst Paratubal cyst Post-menopausal bleeding Raynauds syndrome Uterine fibroid Surgical History H/O dilation and curettage History of hysteroscopy History of laparoscopy History of left salpingo-oophorectomy History of right salpingo-oophorectomy (08/10/18) History of tonsillectomy [place] teeth extracted Family History Father CAD (coronary artery disease) CABG age 59 Hypertension Brother Hypertension CAD (coronary artery disease) Myocardial infarction from [place] Other CVA (cerebral vascular accident) Social History (Updated 12/12/20 @ 14:19 by Dasia Boone) household members: spouse current occupational status: employed current occupation: [employer] history of recent travel: No Smoking Status: Former smoker Electronic Cigarette Use: with nicotine alcohol intake: current alcohol intake frequency: a few times a month substance use type: does not use what type of physical activity do you participate in: walking frequency: 3-4 times per week seatbelt use: always do you feel safe at home: Yes additional social history: - Ryan Pregancy History 0 Elective abortions Hx Para Spontaneous abortions Hx # Term Pregnancies Ectopic pregnancies Hx # Pregnancies Multiple births # of living children HPI Encounter for routine gynecological examination: Details: YASSINE RUIZ is a 60 year old who presents for new patient annual exam. Pain with intercourse due to dryness. Prior exams at [facility]. Last PAP: 2-3 year ago History of abnormal PAP: no Last mammogram: 09/2020 History of abnormal mammogram: benign bx Colon cancer screening: >10 yr Other preventative health care screenings: Mark JOSEPH Details: YASSINE RUIZ is a 60 year old who presents for annual exam. Last PAP: [] History of abnormal PAP: [] Last mammogram: [] History of abnormal mammogram: [] Colon cancer screening: [] Other preventative health care screenings: [] Female Reproductive History Questions: metorrhagia: No, sexually active: Yes, dyspareunia: Yes and PCB: No Menopausal Symptoms: No hot flashes, No night sweats, No weight change, No mood changes, No difficulty concentrating, No sleep problems and No change in libido Menopausal Treatment: No HRT, No Vaginal Estrogen, No Osphena, No OTC treatments and No prescription non-hormonal treatment ROS Const Constitutional: Denies night sweats Cardio Card: Denies chest pain Resp Resp: Denies cough or dyspnea on exertion GI GI: Denies abdominal pain, bloating, change in stool character, constipation or vomiting : Reports as per HPI; Denies hot flashes Psych Psych: Denies change in libido or difficulty concentrating Exam Const General: cooperative, healthy appearing, no acute distress and well developed Orientation: alert, oriented to person and oriented to place HENMA Head: normal to inspection Neck Neck: normal visual inspection Thyroid: thyroid normal Lymphatic: no lymphadenopathy noted Chest Breast inspection: normal inspection of the breasts and normal inspection of the axillae Breast palpation: normal palpation of the breasts, normal palpation of the axillae and no axillary lymphadenopathy Resp Effort Inspection: normal respiratory effort GI Palpation: soft, no masses and nontender Rectal Exam: deferred External Female Exam: normal external appearance and normal appearance of the urethra Urethra: normal appearance of the urethra and normal palpation Speculum Exam - Vagina: normal vaginal discharge and vagina atrophic Speculum Exam - Cervix: normal appearance of the cervix Bimanual Exam- Vagina Uterus: normal bimanual exam, uterine size normal, uterine shape normal and non-tender Bimanual Exam- Adnexa, other: normal adnexae, no masses, normal and non-tender Pelvic Support: normal Neuro General: patient alert and patient oriented x3 Psych Affect: normal affect Coding Level of Care Code Off vis,new,prev 40-64yrs Diagnoses Encounter for routine gynecological examination Z01.419 Atrophic vaginitis N95.2 Assessment and Plan Assessment and Plan (1) Encounter for routine gynecological examination: (2) Atrophic vaginitis: Status: Acute Plan - Radha Reid RADIO PERFORMER, RADIO PERFORMER-C: Completed breast and pelvic exam Reviewed diet and exercise Pap thin prep pap with HPV Mammogram recent breast self exam encouraged monthly Rx estradiol cream and reviewed use of coconut oil Colonoscopy referral to gen surgery Bone density recent RTO 1 year, prn with problems Radha Redi BIOLOGICS SPECIALIST Plan Details Other Medications: New: estradiol 0.01%(0.1mg/gram) small amount as directed vaginal every other day X 4 weeks then twice a week; 42.5 grams 2RF Other Orders: Orders: PAP IG HPV APTIMA 16/18,45 Today SCRN MAMM (CAD)W/CRYSTAL BILAT 12/08/20 12/12/20 2995 <Electronically signed by Radha Reid RADIO PERFORMER RADIO PERFORMER-C> Date Radha Reid OPAL CELIS Jeffigner Signature: Date (if applicable) CC: Hortencia Flores BIOLOGICS SPECIALIST Work Phone: Start: 12-11-2020 End: 12-11-2020 Cardiology Visit Report Comments: See Note; NOTES: [facility] [address] [place] [address]. [address] [place] [address] OFFICE VISIT Date of Service: 12/11/20 MR#: [id number] Acct: [id number] Name: YASSINE RUIZ Rep #: [id number] : 1960 Provider: LALITA neville Age/Sex: 60/F Location: [facility] Status: Signed HPI HPI History of Present Illness Details: Pleasant 60-year-old lady that presents to the office today for an out patient cardiovascular appointment. She has a history of hypertension and an abnormal EKG. She was evaluated with the above with an echocardiogram which was normal. She had previously been on the beta-salazar and Aldactone for high blood pressure and this was discontinued and she was put on hydrochlorothiazide with lisinopril. From a cardiac standpoint, the patient is doing well. She does occassionaly feel palpitations-she states it is not that often. She describes this as a fast heart rate that doesn't last very long. She denies any chest pain, pressure or heaviness. She does states she gets SOB/winded when walking up a hill, and cleaning the house. She denies Orthopnea, and PND. She denies any decrease in energy level, myalgias, or claudication. She does not have any edema, or sudden weight gain. She denies dizziness, lightheadedness, syncopal or near syncopal episodes, and headaches. Intake Vital Signs 12/11/20 08:16 Height 5 ft 8 in Weight: 203 lb 4 oz BMI 30.9 BP 115/82 H Blood Pressure Location Lt brachial Position Sitting Respiration 16 Pulse 97 Pulse Oximetry (%) 93 Oxygen Delivery Method room air Intake Visit Reasons: 1 Y FU Allergies latex Allergy (Verified 12/11/20 08:31) Swelling plastic tape Allergy (Uncoded 12/03/19 08:55) Swelling Medications amitriptyline 50 mg PO QHS 08/18/15 [History Confirmed 12/11/20] cholecalciferol (vitamin D3) 2,000 unit PO DAILY 07/06/16 [History Confirmed 12/11/20] multivitamin 1 ea PO DAILY 08/04/18 [History Confirmed 12/11/20] calcium acetate 667 mg tablet 1,334 mg PO DAILY tab 12/03/19 [History Confirmed 12/11/20] lisinopril 10 mg-hydrochlorothiazide 12.5 mg tablet 1 tab PO DAILY #90 tab 12/17/19 [Rx Confirmed 12/11/20] metoprolol succinate 25 mg tablet,extended release 24 hr 25 mg PO DAILY #90 tab 01/25/20 [Rx Confirmed 12/11/20] alprazolam 0.5 mg tablet PO PRN 8 Days #30 tab 12/11/20 [History Confirmed 12/11/20] duloxetine 20 mg capsule,delayed release 20 mg PO DAILY cap 12/11/20 [History Confirmed 12/11/20] [facility] Medical History (Updated 12/11/20 @ 08:58 by Leigh Amador RADIO PERFORMER, RADIO PERFORMER-C) Anxiety and depression Essential (primary) hypertension GERD (gastroesophageal reflux disease) Hyperlipidemia IBS (irritable bowel syndrome) Obesity Osteopenia Ovarian cyst Paratubal cyst Post-menopausal bleeding Raynauds syndrome Uterine fibroid Surgical History H/O dilation and curettage History of hysteroscopy History of laparoscopy History of left salpingo-oophorectomy History of right salpingo-oophorectomy (08/10/18) History of tonsillectomy [place] teeth extracted Family History Father CAD (coronary artery disease) CABG age 59 Hypertension Brother Hypertension CAD (coronary artery disease) Myocardial infarction from [place] Other CVA (cerebral vascular accident) Social History Smoking Status: Former smoker Electronic Cigarette Use: with nicotine ROS Const Const: Negative for fatigue, weakness, fever(s), headache(s), chills, frequent falls, weight gain or weight loss Eyes Eyes: Negative for blind spots, loss of peripheral vision, transient loss of vision, blurry vision, change in vision, double vision, floaters or tunnel vision ENT ENT: Negative for headache(s), dizziness, Nosebleed/epistaxis, balance problems or neck pain Cardio Chest Pain: No Palpitations: No Edema: None Muscle aches with walking: None Resp Respiratory: Positive for SOB with activity (when walking up a hill and cleaning the house); Negative for SOB at rest or SOB orthopnea SOB lying down GI GI: Negative nausea, vomiting, heartburn, bloating, vomiting blood/hematemesis, bright, red blood in stools or black,tarry stools Musc Musc: Negative for muscle aches/ myalgia, muscle weakness, joint pain or balance problems Neuro Neuro: Negative for dizziness, lightheadedness, near syncope, syncope, orthostatic symptoms, frequent falls, headache(s), weakness, blurry vision or double vision Quan Hematologic/Lymphatic: Negative for easy bleeding or easy bruising Endo Endo: Negative for fatigue Cardiology Exam Const Appearance: cooperative and no acute distress Orientation: alert and oriented x3 Head Head: normal to inspection Ears: hearing grossly normal bilaterally Nose: external nose normal Face and Sinus: face symmetric Eyes General: appearance normal, both eyes and all related structures Eyelids: eyelids normal Conjunctivae: conjunctivae normal Pupils: PERRL and pupil size EOM: EOM intact bilaterally Neck Neck: normal visual inspection Carotids: Negative bruit Chest Chest inspection: normal inspection of the chest and normal respiratory effort Auscultation: Bilateral: Clear to Auscultation Cardio Palpation: normal PMI Rate: regular rate Rhythm: regular rhythm Heart sounds: S1 normal and S2 normal; Negative rub, gallop or murmur GI GI: normal to inspection and soft; Negative no hepatosplenomegaly Neuro General: patient alert, patient oriented x3 and CN's II-XI intact bilaterally Skin Skin: no rashes or lesions noted Extremities Pulses: Normal: Right Posterior Tibial Pulse, Left Posterior Tibial Pulse, Right Radial Pulse and Left Radial Pulse Lower Extremity Edema: None: Bilateral Psych Psychological: normal affect Assessment and Plan Assessment and Plan (1) Essential (primary) hypertension: Status: Chronic Plan: Patient has a history of hypertension. Her blood pressure is well controlled at this time. She will continue with her lisinopril-hctz 10-12.5mg p.o. daily. She will continue to monitor her blood pressures at home. (2) Sinus tachycardia: Status: Acute Plan: Patient has a history of sinus tachycardia. She states this has gotten better since adding metoprolol succinate 25mg p.o. daily. She will continue with her current medications and will monito r her heart rate at home. (3) WILSON (dyspnea on exertion): Status: Acute Orders: Orders: Echo Complete Today Plan: Patient does have complaints of dyspnea on exertion. We will obtain an echocardiogram to evaluate this. Plan Details Additional Comments: Patient will follow up in 1 year or sooner if needed. Thank you for allowing me to participate in the care of your patient. Please don't hesitate to call if any issues arise. This note was generated using a voice recognition system and there may be incorrect words, spelling, or punctuation that were not noted when reviewing the office note prior to saving. 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 Left ventricular systolic function is normal. The estimated ejection fraction is 60 %. Stage 1 diastolic dysfunction. Mild (1+) tricuspid valve insufficiency. Labs: LDL Cholesterol 115 mg/dL (0-130) HDL Cholesterol 69 mg/dL (40-) Triglycerides 142 mg/dL (-199) VLDL Cholesterol 28 mg/dL (5-40) Diagnostics: Electrocardiogram Echocardiogram Abdomen US Pulmonary: No Data to Display 12/11/20 0903 <Electronically signed by Leigh Amador NP RADIO PERFORMER-C> Date Leigh Amador NP RADIO PERFORMER-C 12/11/20 0924<Electronically signed by Reggie Sparks MD> Cosigner Signature: Date (if applicable) Reggie Sparks MD CC: RADIO PERFORMER-C Hortencia Flores [facility] Work Phone: Start: 09-21-2020 End: 09-21-2020 CT Abd/Pelvis W/WO Contrast Comments: See Note; NOTES: [facility] [address] [facility] [address] CT Abd/Pelvis W/WO Contrast MR#: [id number] Acct: [id number] Name: YASSINE RUIZ Rep #: [id number] : 1960 F 60 From: Logan collazo MD PCP: LALITA Cruz Status: REG CLI Study: CT Abd/Pelvis W/WO Contrast Date of Exam: 09/12 Exam# [id number] Ordering Dr: Mary Espinosa NP, NP-C STUDY: CT ABDOMEN AND PELVIS WITH AND WITHOUT CONTRAST REASON FOR EXAM: Female, 60 years old. UNSPECIFIED ABD PAIN, ABNORMAL FINDINGS ON DX IMAGING OF RENAL -- PELVIS,URETER OR BLADDER,DIVERTICULUM OF BLADDER RADIATION DOSAGE (If Supplied By Facility): CTDIvol = ( 21.11 ) mGy, DLP = ( 2762.99 ) mGycm TECHNIQUE: Transaxial images were obtained from the dome of the diaphragm to the symphysis pubis without oral contrast. IV 100mL Isovue-300 was administered. Sagittal and coronal images were reconstructed. Individualized dose optimization techniques were used for this CT. COMPARISON: Comparison is made with prior examination dated 06/16/2015 and prior sonogram of the pelvis dated 08/30/2020. FINDINGS: The visualized lung bases are unremarkable. The visualized portions of the heart are within normal limits. Normal liver. Normal gallbladder and extrahepatic biliary system. Normal spleen. Normal pancreas. Normal bilateral adrenal glands. Normal right kidney. Normal left kidney. Normal visualized stomach. Normal small intestine. There are scattered colonic diverticula consistent with diverticulosis. The appendix is visualized and appears normal. Normal abdominal aorta. Normal inferior vena cava. There is borderline retroperitoneal lymphadenopathy with enlarged nodes no greater than 10mm in the short axis diameter. The bladder is empty at the time of the examination. There is a 2.5 cm fibroid in the fundal portion of uterus. Normal abdominal wall. There are diffuse degenerative changes of the visualized lumbar spine. There is straightening of the normal lumbar lordosis. CT/CT Abd/Pelvis W/WO Contrast IMPRESSION: No pelvic masses seen. Fibroid uterus. Electronically Signed: Logan Russell MD at 10:29 EDT , Service support , CC: LALITA Flores; LALITA Espinosa [employer] Electronic War[employer] Operator: Signed Sudhamarisa aCro Work Phone: Start: 09-13-2020 End: 09-14-2020 Dexa Bone Density Study Comments: See Note; NOTES: [facility] Services [address] [place] [address] Dexa Bone Density Study MR#: [id number] Acct: [id number] Name: YASSINE RUIZ Rep #: [id number] : 1960 F 60 From: Logan collazo MD PCP: LALITA Cruz Status: REG CLI Study: Dexa Bone Density Study Date of Exam: 09/13/20 Exam# [id number] Ordering Dr: Hortencia Flores NP STUDY: DUAL ENERGY X-RAY ABSORPTIOMETRY / DXA REASON FOR EXAM: Female, 60 years old. Z780 -- POST PONCHO. TECHNIQUE: Bone Mineral Density (BMD) measurements of lumbar spine and bilateral hips were obtained. COMPARISON: Comparison is made with prior study dated 07/30/2018. FINDINGS: Lumbar Spine (L1-L4): g/cm2 (1.134) / T-score (-0.4) / Z-score (0.8) Findings are suggestive of normal bone density with a low fracture risk. Left Femur Total: g/cm2 (0.925) / T-score (-0.7) / Z-score (12.3) Left Femoral Neck: g/cm2 (0.957) / T-score (-0.6) / Z-score (0.7) Right Femur Total: g/cm2 (0.907) / T-score (-0.8) / Z-score (0.1) Right Femoral Neck: g/cm2 (0.837) / T-score (-1.4) / Z-score (-0.2) The T-Scores on the most recent prior examination were: Lumbar Spine (L1-L4): There has been worsening of bone density since the previous examination. Left Femur Total: which represents a worsening of 1.7%. Right Femur Total: which represents a worsening of 1.5%. BD/Dexa Bone Density Study IMPRESSION: The patient is considered osteopenic as outlined below according to World Marcos Organization (WHO) criteria with a low fracture risk. There has been worsening of bone density since the previous examination. Reference Information: The T-score is the number of standard deviations above or below the standard which is normal for young adults at their peak bone mineral density. The World Health Organization (WHO) interprets the T-scores as follows: Above -1 Normal bone density Between -1 and -2.5 Osteopenia Equal to / or below -2.5 Osteoporosis As a practical clinical guideline, osteopenia may be graded as follows: Mild -1 through -1.5 Moderate -1.6 through -2.0 Severe -2.1 through -2.4 The Z-score is the number of standard deviations above or below age-matched controls. A Z-score of less than -1.5 would be considered abnormal. References: 1. NIH Osteoporosis and Related Bone Diseases www osteo.org 2. International Society for Clinical Densitometry www iscd.org 3. National Osteoporosis Foundation www nof.org Electronically Signed: Logan Russell MD at 14:37 EDT , Service support , CC: LALITA Flores [employer] Electronic Warfare Operator: Signed Hortencia Flores [employer] Work Phone: Start: 09-13-2020 End: 09-13-2020 SCRN MAMM (CAD)W/CRYSTAL BILAT Comments: See Note; NOTES: [facility] Imaging Services [address] [place] [address] SCRN MAMM (CAD)W/CRYSTAL BILAT MR#: [id number] Acct: [id number] Name: YASSINE RUIZ Rep #: [id number] : 1960 F 60 From: Logan collazo MD PCP: LALITA Cruz Status: REG [facility] Study: SCRN MAMM (CAD)W/CRYSTAL BILAT Date of Exam: 06/04 Exam# [id number] Ordering Dr: Hortencia Flores NP, NP-Clara MAMMOGRAPHY - BILATERAL SCREENING REASON FOR EXAM: Female, 60 years old. Routine annual screening examination. PERTINENT HISTORY: Grandmother with breast cancer. History of prior left stereotactic breast biopsy. TECHNIQUE: Digital bilateral breast crystal (3D mammographic acquisition) in the CC and MLO projections. 2-D mediolateral oblique (MLO) and craniocaudad (CC) views of both breasts were obtained. CAD: Full Field Digital Mammography with Computer Added Detection was performed. COMPARISON: Comparison is made with prior study dated 09/07/2019 and 04/17/2018. FINDINGS: Breast Composition: The breasts are heterogeneously dense, which may obscure small masses. There are no dominant masses or suspicious calcifications. A tissue clip marker is seen in the deep inferior medial aspect of the left breast. Stable small benign-appearing bilateral axillary lymph nodes. No other significant abnormalities are identified. There has been no significant change since the prior study. BI/SCRN MAMM (CAD)W/CRYSTAL BILAT IMPRESSION: Stable bilateral screening mammogram. Yearly follow-up mammogram recommended. (A) ASSESSMENT CATEGORY: BIRADS Category 2: Benign. A letter regarding these results will be sent to the patient by the facility within 30 days. Approximately 10% of breast cancers are not detected by mammography. A normal mammogram should not delay biopsy of a clinically suspicious abnormality. [id number] Electronically Signed: Logan Russell MD at 10:56 EDT , Service support , CC: LALITA Flores [employer] Electronic Warfare Operator: Signed Hortencia Flores [facility] Work Phone: Start: 08-30-2020 End: 08-30-2020 Pelvic (Non ) Comments: See Note; NOTES: [facility] Services [address] [place] [address] Pelvic (Non ) MR#: [id number] Acct: [id number] Name: YASSINE RUIZ Rep #: [id number] : 1960 F 60 From: Tj Ybarra DO PCP: LALITA Cruz Status: [facility] CLI Study: Pelvic (Non ) Date of Exam: 08/30/20 Exam# [id number] Ordering Dr: Hortencia Flores NP STUDY: ULTRASOUND OF THE FEMALE PELVIS - COMPLETE REASON FOR EXAM: Female, 60 years old. Lower abdominal pain. Right lower quadrant abdominal pain. Bilateral oophorectomy. LMP: Unknown. TECHNIQUE: Transabdominal and Transvaginal TECHNICAL QUALITY: Adequate. COMPARISON: Pelvic CT, 07/17/2018. FINDINGS: The uterus is anteverted and is in a midline position. The uterus measures 6.2 x 3.9 x 2.5 cm. Normal uterine cervix. The endometrium measures 1 mm in thickness, and is hyperechoic. There is no demonstrated endometrial mass. There is no demonstrated myometrial mass. I.U.D. - The patient does not have an I.U.D. The right ovary is surgically absent in the right lower quadrant there is a 7.3 x 7.6 x 8.3 cm fluid density mass seen only when the bladder was full. This disappears when the bladder is empty suggesting a bladder diverticulum. The left ovary is surgically absent. There is no visualized left adnexal mass or complex lesion. There is no fluid in the cul-de-sac. The pre void volume of the bladder was 330 ml. The urinary bladder is grossly normal. Polycystic ovary disease: No. US/Pelvic (Non ) IMPRESSION: 1. Normal uterus. 2. Status post left oophorectomy. 3. Fluid density mass in the right adnexa which appears to disappear with emptying of the urinary bladder. Question large bladder diverticulum. Other possibilities include a fluid cyst or fluid-filled bowel loop. Patient may require CT. Electronically Signed: Tj Ybarra DO at 21:26 EDT Tel [phone], Service support , CC: LALITA Flores [employer] Electronic Warfare Operator: Signed Hortencia Flores [facility] Work Phone: Start: 08-30-2020 End: 08-30-2020 Transvaginal Non- Comments: See Note; NOTES: [facility] Services [address] [place] [address] Transvaginal Non- MR#: [id number] Acct: [id number] Name: YASSINE RUIZ Rep #: [id number] : 1960 F 60 From: Tj Ybarra DO PCP: LALITA Cruz Status: REG CLI Study: Transvaginal Non- Date of Exam: Exam# [id number] Ordering Dr: Hortencia Flores NP STUDY: ULTRASOUND OF THE FEMALE PELVIS - COMPLETE REASON FOR EXAM: Female, 60 years old. Lower abdominal pain. Right lower quadrant abdominal pain. Bilateral oophorectomy. LMP: Unknown. TECHNIQUE: Transabdominal and Transvaginal TECHNICAL QUALITY: Adequate. COMPARISON: Pelvic CT, 07/17/2018. FINDINGS: The uterus is anteverted and is in a midline position. The uterus measures 6.2 x 3.9 x 2.5 cm. Normal uterine cervix. The endometrium measures 1 mm in thickness, and is hyperechoic. There is no demonstrated endometrial mass. There is no demonstrated myometrial mass. I.U.D. - The patient does not have an I.U.D. The right ovary is surgically absent in the right lower quadrant there is a 7.3 x 7.6 x 8.3 cm fluid density mass seen only when the bladder was full. This disappears when the bladder is empty suggesting a bladder diverticulum. The left ovary is surgically absent. There is no visualized left adnexal mass or complex lesion. There is no fluid in the cul-de-sac. The pre void volume of the bladder was 330 ml. The urinary bladder is grossly normal. Polycystic ovary disease: No. US/Transvaginal Non- IMPRESSION: 1. Normal uterus. 2. Status post left oophorectomy. 3. Fluid density mass in the right adnexa which appears to disappear with emptying of the urinary bladder. Question large bladder diverticulum. Other possibilities include a fluid cyst or fluid-filled bowel loop. Patient may require CT. Electronically Signed: Tj Ybarra DO at 21:26 EDT Tel [phone], Service support , CC: LALITA Flores [employer] Electronic Warfare Operator: Signed Hortencia Flores BIOLOG[employer] SPECIALIST Work Phone: Start: 08-30-2020 End: 08-30-2020 Abdomen Complete Comments: See Note; NOTES: [facility] Services [address] [place] [address] Abdomen Complete MR#: [id number] Acct: [id number] Name: YASSINE RUIZ Rep #: [id number] : 1960 F 60 From: Tj Ybarra DO PCP: LALITA Cruz Status: REG CLI Study: Abdomen Complete Date of Exam: 08/30/20 Exam# [id number] Ordering Dr: Hortencia Flores NP STUDY: ABDOMINAL ULTRASOUND REASON FOR EXAM: Female, 60 years old. Abdominal pain. Right lower quadrant pain. TECHNIQUE: Transabdominal ultrasound was performed with real-time and static dimas scale imaging. TECHNICAL QUALITY: Adequate. COMPARISON: CT of the abdomen and pelvis, 06/16/2015. FINDINGS: Liver: The liver measures 13.9 cm. There is increased echogenicity consistent with fatty infiltration. The bile ducts are within normal limits. There is hepatic color flow. The direction of portal flow is hepatopetal. There is no demonstrated mass lesion. Gallbladder: Normal distended gallbladder. The gallbladder wall measures 2.8 mm. There is a negative sonographic Steve''s sign. There is no pericholecystic fluid. There are no gallstones. Common Bile Duct (C.B.D.): The common bile duct measures 2.6 mm. Pancreas: Normal size of the head, body and tail of the pancreas. There is normal echogenicity of the pancreas. There is no demonstrated pancreatic mass or cyst. Spleen: Normal size of the spleen. The spleen measures 11.2 cm. Right Kidney: Normal size of the right kidney. The right kidney measures 10.0 cm. Normal renal cortex. The right cortex measures 1.6 cm. There is no demonstrated renal mass or cyst. There is no right hydronephrosis. Left Kidney: Normal size of the left kidney. The left kidney measures 10.2 cm. Normal renal cortex. The left cortex measures 1.3 cm. There is no demonstrated renal mass or cyst. There is no left hydronephrosis. Aorta: No abdominal aortic aneurysm. I.V.C.: The IVC is patent. There is no ascites. US/Abdomen Complete IMPRESSION: Fatty infiltration of the liver without focal mass. The study is otherwise unremarkable. Electronically Signed: Tj Ybarra DO at 17:49 EDT Tel [phone], Service support , CC: LALITA Flores [employer] Electronic Warfare Operator: Signed Hortencia Flores [employer] Work Phone: Start: 12-03-2019 End: 12-03-2019 Cardiology Visit Report Comments: See Note; NOTES: [facility] [address] [place] [address]. [address] [place] [address] OFFICE VISIT Date of Service: 12/03/19 MR#: [id number] Acct: [id number] Name: YASSINE RUIZ Rep #: [id number] : 1960 Provider: Dr. Reggie Sparks MD Age/Sex: 59/F Location: [facility] Status: Signed HPI [facility] History of Present Illness Details: Pleasant 59-year-old lady with a history of hypertension who had an abnormal EKG. She was evaluated with the above with an echocardiogram which was normal. She had previously been on the beta-salazar and Aldactone for high blood pressure and this was discontinued and she was put on hydrochlorothiazide with lisinopril. She says that her blood pressures have been better but she has noted that her heart rate has been elevated. She has been concerned about this. She has had no neck arm or jaw discomfort to suggest angina. Her physical exam demonstrates clear lung montoya regular rate and rhythm and no pedal edema. Intake Vital Signs 12/03/19 Height 5 ft 8 in 12/03/19 Weight: 197 lb 12/03/19 BP 127/85 H 12/03/19 Respiration 16 12/03/19 Pulse 104 H 12/03/19 Pulse Oximetry (%) 100 Intake Visit Reasons: 1 Y FU (needs Fri) WE R/S FROM - Allergies latex Allergy (Verified 12/03/19 08:55) Swelling plastic tape Allergy (Uncoded 12/03/19 08:55) Swelling Medications Amitriptyline HCl 50 mg PO QHS 08/18/15 [History Confirmed 12/03/19] Cholecalciferol (Vitamin D3) [Vitamin D3] 2,000 unit PO DAILY 07/06/16 [History Confirmed 12/03/19] Multivitamin [Multiple Vitamins] 1 ea PO DAILY 08/04/18 [History Confirmed 12/03/19] alprazolam 0.5 mg tablet PO 8 Days #30 tab 09/28/18 [History Confirmed 12/03/19] lisinopril 10 mg-hydrochlorothiazide 12.5 mg tablet 1 tab PO DAILY #90 tab 09/30/18 [Rx Confirmed 12/03/19] magnesium glycinate 100 mg tablet 100 mg PO DAILY 09/30/18 [History Confirmed 12/03/19] calcium acetate 667 mg tablet 1,334 mg PO DAILY tab 12/03/19 [History Confirmed 12/03/19] escitalopram oxalate 20 mg tablet 20 mg PO QHS 12/03/19 [History Confirmed 12/03/19] Ejection fraction %: 60 to 64 PFSH Medical History Essential (primary) hypertension (Chronic) Hyperlipidemia (Chronic) Anxiety and depression (Chronic) GERD (gastroesophageal reflux disease) (Chronic) IBS (irritable bowel syndrome) (Chronic) Obesity (Chronic) Osteopenia (Chronic) Ovarian cyst (Chronic) Paratubal cyst (Chronic) Post-menopausal bleeding (Chronic) Raynauds syndrome (Chronic) Uterine fibroid (Chronic) History of hysteroscopy (Resolved) Social History (Updated 12/03/19 @ 09:[address] Reggie Sparks MD) Smoking Status: Former smoker Electronic Cigarette Use: with nicotine ROS Const Const: Negative for fatigue, weakness, headache(s), frequent falls, difficulty sleeping or excessive sweating Eyes Eyes: Negative for loss of peripheral vision, transient loss of vision, blurry vision, double vision or tunnel vision ENT ENT: Negative for headache(s), dizziness, Nosebleed/epistaxis or balance problems Cardio Chest Pain: No Palpitations: No Edema: None Muscle aches with walking: None Additional Details: feels anxious when HR elevated Resp Respiratory: Negative for SOB with activity, SOB at rest, SOB orthopnea SOB lying down, Cough or paroxysmal nocturnal dyspnea GI GI: Negative nausea, vomiting, heartburn or black,tarry stools : Negative for hematuria Musc Musc: Negative for muscle aches/ myalgia, muscle weakness, joint pain or balance problems Skin Skin: Negative non-healing lesions, rash or unusual bruising Neuro Neuro: Negative for dizziness, lightheadedness, near syncope, syncope, orthostatic symptoms, frequent falls, headache(s), weakness, blurry vision, double vision or lack of coordination Quan Hematologic/Lymphatic: Negative for easy bleeding or easy bruising Endo Endo: Negative for fatigue, excessive sweating or increased thirst/drinking Psych Psych: Negative for anxiety or depression Allergy Allergy/Immunology: Negative for hives, Negative for rash Cardiology Exam Const Appearance: cooperative, healthy appearing, no acute distress, well developed and well groomed Nutritional Appearance: average body habitus and well nourished Orientation: alert, awake and oriented x3 Head Head: normal to inspection, normocephalic and atraumatic Ears: hearing grossly normal bilaterally and external ears normal Nose: external nose normal, nares normal, nasal mucous membranes and turbinates normal, septum normal, no nasal discharge Face and Sinus: face symmetric Mouth: oral mucosae normal, tongue normal, oropharynx normal and moist mucous membranes Teeth and gingiva: dentition normal Throat: posterior oropharynx normal, tonsils normal and uvula midline Eyes General: appearance normal, both eyes and all related structures Eyelids: eyelids normal Conjunctivae: conjunctivae normal Pupils: PERRL, normal by confrontation and accommodation normal EOM: EOM intact bilaterally Neck Neck: normal visual inspection, trachea midline and no JVD JVD: +5 Carotids: normal carotid upstroke and bounding pulses Chest Chest inspection: normal inspection of the chest, symmetric chest movement and normal respiratory effort Auscultation: Bilateral: Clear to Auscultation Cardio Palpation: normal PMI Rate: regular rate Rhythm: regular rhythm Heart sounds: S1 normal, S2 normal and normal, physiologic split S2; negative rub, gallop or murmur GI GI: normal to inspection, soft, no hepatosplenomegaly and bowel sounds present Neuro General: alert, awake, oriented x3, gait normal, moves all extremities and no focal sensory deficit Skin Skin: no rashes or lesions noted Extremities Pulses: Normal: Right Femoral Pulse, Left Femoral Pulse, Right Dorsalis Pedis Pulse, Left Dorsalis Pedis Pulse, Right Posterior Tibial Pulse, Left Posterior Tibial Pulse, Right Radial Pulse, Left Radial Pulse Lower Extremity Edema: None: Bilateral Musculoskel Musculoskeletal: No joint tenderness Psych Psychological: normal affect Assessment Plan Problems 1. Essential (primary) hypertension I10 Plan She does have evidence of hypertension which appears to be well controlled on the current medical therapy. With respect to her heart rate I would suggest that we obtain a 48-hour Holter monitor to make sure that she is not having significantly higher rates. She has been giving blood and she says that after her blood donation her heart rate appears to be higher. Her TSH is noted to be normal. Thank you for allowing me to participate in the care of your patient. Please don't hesitate to call if any issues arise. Orders Orders: Cardiac Holter Monitor, Set-Up Today I10 Cardiac Holter Monitor/Day Today I10 Plan Detail Follow Up 1 Year (mmm) Coding Level of Care Code Off vis,est,level 3 Diagnoses Essential (primary) hypertension I10 Coding Level of Care Code Off vis,est,level 3 Diagnoses Essential (primary) hypertension I10 Supplemental Info Supplemental Information Diagnostics Electrocardiogram 09/30/18 Echocardiogram 10/23/18 Chest X-Ray 08/05/18 12/03/19 0923 <Electronically signed by Reggie Sparks MD> Date Reggie Lovett Signature: Date (if applicable) CC: RADIO PERFORMERShu Burnett Mark Start: 09-07-2019 End: 09-08-2019 SCREEN MAMM (CAD) W/CRYSTAL BILAT Comments: See Note; NOTES: [facility] Services [address] [place] [address] SCREEN MAMM (CAD) W/CRYSTAL BILAT MR#: [id number] Acct: [id number] Name: YASSINE RUIZ Rep #: [id number] : 1960 F 59 From: Logan collazo MD PCP: LALITA Cruz Status: REG CLI Study: SCREEN MAMM (CAD) W/CRYSTAL BILAT Date of Exam: 0 09/07/19 Exam# [id number] Ordering Dr: Edmundo Huston MD MAMMOGRAPHY - BILATERAL SCREENING REASON FOR EXAM: Female, 59 years old. Routine annual screening examination. PERTINENT HISTORY: Remote left stereotactic breast biopsy. Grandmother with breast cancer. TECHNIQUE: Digital bilateral breast crystal (3D mammographic acquisition) in the CC and MLO projections. 2-D mediolateral oblique (MLO) and craniocaudad (CC) views of both breasts were obtained. CAD: Full Field Digital Mammography with Computer Added Detection was performed. COMPARISON: Comparison is made with prior examination dated April 17, 2018 and January 24, 2017. FINDINGS: Breast Composition: The breasts are heterogeneously dense, which may obscure small masses. There are no dominant masses or suspicious calcifications. Stable benign-appearing bilateral axillary lymph nodes. No other significant abnormalities are identified. There has been no significant change since the prior study. BI/SCREEN MAMM (CAD) W/CRYSTAL BILAT IMPRESSION: Stable bilateral screening mammogram. Yearly follow-up mammogram recommended. (A) ASSESSMENT CATEGORY: BIRADS Category 2: Benign. A letter regarding these results will be sent to the patient by the facility within 30 days. Approximately 10% of breast cancers are not detected by mammography. A normal mammogram should not delay biopsy of a clinically suspicious abnormality. [id number] Electronically Signed: Logan Russell, at 8:25 EDT , Service support , CC: LALITA Flores; Dr. Edmundo Huston MD Aviation Electronic Warfare Operator: Signed Hortencia Flores Start: 10-23-2018 End: 10-23-2018 Echocardiogram Complete Comments: See Note; NOTES: [facility] [address] [place] [address] Echo Complete 10/23/18 0801 MR#: [id number] Acct: [id number] Name: YASSINE RUIZ Rep #: [id number] : 1960 58 From: Reggie Sparks MD Attending Dr: Reggie Sparks MD Status: REG CLI Ordering Dr: Reggie Sparks MD Date: 10/23/18 Location: [facility] Sex: F C Admitted: Reason For Study: HYPERTENSION Procedure This was a 2D Doppler, Color Flow transthoracic echocardiogram. Exam performed in department. Left Ventricle Normal LV size. Left ventricular systolic function is normal. The estimated ejection fraction is 60 %. Stage 1 diastolic dysfunction. No regional wall motion abnormalities noted. Right Ventricle Normal RV size. Normal systolic function. Atria Normal left atrium. Normal right atrium. Mitral Valve Normal mitral valve. Tricuspid Valve Normal tricuspid valve. Mild (1+) tricuspid valve insufficiency. Pulmonary artery systolic pressure is 31 mmHg. Aortic Valve Trisinus/trileaflet aortic valve. Pulmonic Valve Normal pulmonic valve. Great Vessels Normal aortic root. The pulmonary artery is normal size. Normal inferior vena cava. Pericardium/Pleural No pericardial effusion. MMode/2D Measurements AND Calculations LVIDd: 4.7 cm IVSd: 1.00 cm Ao root diam: 3.7 cm LVIDs: 3.0 cm LVPWd: 0.91 cm RVDd: 2.9 cm FS: 35.9 % LAV(MOD-bp): 35.7 ml LA A4 area: 14.7 cm2 LA dimension(2D): 3.1 cm LAV(MOD-bp) Indexed: 17.7 ml/m2 LAV(MOD-sp2): 30.7 ml LAV(MOD-sp4): 34.1 ml RA A4 area: 13.2 cm2 Time Measurements MV dec time: 0.19 sec Doppler Measurements AND Calculations MV E max aubree: 73.8 cm/sec Lat Peak E' Aubree: 6.6 cm/sec Med Peak E' Aubree: 8.8 cm/sec MV A max aubree: 96.3 cm/sec E/E' lat: 11.1 E/E' med: 8.4 MV E/A: 0.77 Ao V2 max: 118.1 cm/sec LV V1 max: 91.2 cm/sec PA V2 max: 96.0 cm/sec Ao max P.6 mmHg LV V1 max P.3 mmHg TR max aubree: 262.9 cm/sec TR max P.7 mmHg Interpretation Summary Normal LV size. Left ventricular systolic function is normal. The estimated ejection fraction is 60 %. Stage 1 diastolic dysfunction. Mild (1+) tricuspid valve insufficiency. Ordering Physician: Reggie Sparks Referring Physician: Hortencia Flores Performed By: Lexis Coronado RDCS, RVT 10/23/18 105 Date Reggie Sparks MD CC: RADIO PERFORMER Hortencia Flores; Reggie Sparks MD Date Dictated: 10/23/18 08 Date Transcribed: 10/23/181050 Aviation Electronic Warfare Operator: Signed Hortencia Flores Start: 09-30-2018 End: 10-01-2018 12 Lead EKG performed by MAICOL Comments: See Note; NOTES: [facility] [address] [place] [address] 12 Lead EKG performed by MAICOL 09/30/18 0933 MR#: [id number] Acct: [id number] Name: YASSINE RUIZ Rep #: [id number] : 1960 58 From: Reggie Sparks MD Attending Dr: Clare JUSTIN,Reggie Status: DEP AMB Ordering Dr: Reggie Sparks MD Date: 09/30/18 Location: [facility] Sex: F C Admitted: BMS/12 Lead EKG performed by [facility] Sinus Rhythm Low voltage in precordial leads. ABNORMAL 09/30/18 0956 <Electronically signed by Reggie Sparks MD> Date Reggie Saprks MD CC: OPAL Flores Date Dictated: 09/30/18932 Date Transcribed: 09/30/18932 Aviation Electronic Warfare Operator: [place] Signed Hortencia Flores Start: 09-30-2018 End: 09-30-2018 Cardiology Visit Report Comments: See Note; NOTES: [facility] [address] [place] [address]. [address] [place] [address] OFFICE VISIT Date of Service: 09/30/18 MR#: [id number] Acct: [id number] Name: YASSINE RUIZ Rep #: [id number] : 1960 Provider: Reggie Sparks MD Age/Sex: 58/F Location: [facility] Status: Signed [facility] History of Present Illness Details: Pleasant 58-year-old lady with no previous cardiac history. The patient was scheduled for and recently underwent a laparoscopic right oophorectomy. As part of her preoperative evaluation she had an EKG done which was apparently read as abnormal. She denies any chest pain or shortness breath or paroxysmal nocturnal dyspnea pedal edema she has had no neck arm or jaw discomfort suggest angina no dizziness or diaphoresis no near syncope or syncope. Previous echocardiogram from 2008 demonstrated preserved ejection fraction of 65%. Her lipid profile from last year demonstrated a total cholesterol of 194, HDL of 60 and LDL of 114. Her physical exam here today demonstrates clear lung montoya regular rate and rhythm no pedal edema and normal blood pressure. Intake Vital Signs09/30/18 Height 5 ft 8 in Intake Visit Reasons: abn ekg Allergies latex Allergy (Verified 09/30/18 08:57) Swelling plastic tape Allergy (Uncoded 09/30/18 08:57) Swelling Medications Amitriptyline HCl 50 mg PO QHS 08/18/15 [History Confirmed 09/30/18] Escitalopram Oxalate [Lexapro] 20 mg PO QHS 08/18/15 [History Confirmed 09/30/18] Cholecalciferol (Vitamin D3) [Vitamin D3] 2,000 unit PO DAILY 07/06/16 [History Confirmed 09/30/18] Multivitamin [Multiple Vitamins] 1 ea PO DAILY 08/04/18 [History Confirmed 09/30/18] alprazolam 0.5 mg tablet PO 8 Days #30 tab 09/28/18 [History Confirmed 09/30/18] calcium-vitamin D2-iron tablet mg PO tab 09/30/18 [History] lisinopril 10 mg-hydrochlorothiazide 12.5 mg tablet 1 tab PO DAILY #90 tab 09/30/18 [Rx Confirmed 09/30/18] magnesium glycinate 100 mg tablet 100 mg PO DAILY 09/30/18 [History Confirmed 09/30/18] [facility] Medical History Essential (primary) hypertension (Chronic) Hyperlipidemia (Chronic) Anxiety and depression (Chronic) GERD (gastroesophageal reflux disease) (Chronic) IBS (irritable bowel syndrome) (Chronic) Obesity (Chronic) Osteopenia (Chronic) Ovarian cyst (Chronic) Paratubal cyst (Chronic) Post-menopausal bleeding (Chronic) Raynauds syndrome (Chronic) Uterine fibroid (Chronic) History of hysteroscopy (Resolved) Surgical History History of left salpingo-oophorectomy (Resolved) History of right salpingo-oophorectomy (Resolved 08/10/18) H/O dilation and curettage (Resolved) History of laparoscopy (Resolved) History of tonsillectomy (Resolved) [place] teeth extracted (Resolved) Family History Father CAD (coronary artery disease) CABG age 59 Hypertension Brother Hypertension CAD (coronary artery disease) Myocardial infarction from [place] Other CVA (cerebral vascular accident) Social History (Updated 09/30/18 @ 09:34 by Reggie Sparks MD) Smoking Status: Former smoker Electronic Cigarette Use: with nicotine ROS Const Const: Negative for fatigue, weakness, headache(s), frequent falls, difficulty sleeping or excessive sweating Eyes Eyes: Negative for loss of peripheral vision, transient loss of vision, blurry vision, double vision or tunnel vision ENT ENT: Negative for headache(s), dizziness, Nosebleed/epistaxis or balance problems Cardio Chest Pain: No Palpitations: No Edema: None Muscle aches with walking: None Resp Respiratory: Positive for SOB with activity (with increase walking and HR becomes elevated); negative for SOB at rest, SOB orthopnea\SOB lying down, Cough or paroxysmal nocturnal dyspnea GI GI: Negative nausea, vomiting, heartburn or black,tarry stools : Negative for hematuria Musc Musc: Negative for muscle aches/ myalgia, muscle weakness, joint pain or balance problems Skin Skin: Negative non-healing lesions, rash or unusual bruising Neuro Neuro: Negative for dizziness, lightheadedness, near syncope, syncope, orthostatic symptoms, frequent falls, headache(s), weakness, blurry vision, double vision or lack of coordination Quan Hematologic/Lymphatic: Negative for easy bleeding or easy bruising Endo Endo: Negative for fatigue, excessive sweating or increased thirst/drinking Psych Psych: Negative for anxiety or depression Allergy Allergy/Immunology: Negative for hives, Negative for rash Cardiology Exam Const Appearance: cooperative, healthy appearing, no acute distress, well developed and well groomed Nutritional Appearance: average body habitus and well nourished Orientation: alert, awake and oriented x3 Head Head: normal to inspection, normocephalic and atraumatic Ears: hearing grossly normal bilaterally and external ears normal Nose: external nose normal, nares normal, nasal mucous membranes and turbinates normal, septum normal, no nasal discharge Face and Sinus: face symmetric Mouth: oral mucosae normal, tongue normal, oropharynx normal and moist mucous membranes Teeth and gingiva: dentition normal Throat: posterior oropharynx normal, tonsils normal and uvula midline Eyes General: appearance normal, both eyes and all related structures Eyelids: eyelids normal Conjunctivae: conjunctivae normal Pupils: PERRL, normal by confrontation and accommodation normal EOM: EOM intact bilaterally Neck Neck: normal visual inspection, trachea midline and no JVD JVD: +5 Carotids: normal carotid upstroke and bounding pulses Chest Chest inspection: normal inspection of the chest, symmetric chest movement and normal respiratory effort Auscultation: Bilateral: Clear to Auscultation Cardio Palpation: normal PMI Rate: regular rate Rhythm: regular rhythm Heart sounds: S1 normal, S2 normal and normal, physiologic split S2; negative rub, gallop or murmur GI GI: normal to inspection, soft, no hepatosplenomegaly and bowel sounds present Neuro General: alert, awake, oriented x3, gait normal, moves all extremities and no focal sensory deficit Skin Skin: no rashes or lesions noted Extremities Pulses: Normal: Right Femoral Pulse, Left Femoral Pulse, Right Dorsalis Pedis Pulse, Left Dorsalis Pedis Pulse, Right Posterior Tibial Pulse, Left Posterior Tibial Pulse, Right Radial Pulse, Left Radial Pulse Lower Extremity Edema: None: Bilateral Musculoskel Musculoskeletal: No joint tenderness Psych Psychological: normal affect Assessment AND Plan 1. Essential (primary) hypertension I10 Plan She does have a history of hypertension. It appears well controlled at this particular time. However she is on a beta-salazar and high-dose spironolactone. I would suggest that we discontinue these and put her on lisinopril hydrochlorothiazide combination. Her electrolytes were noted to be normal before. I would like us to obtain an echocardiogram to reassess her left ventricular function. Orders Orders: 2. Abnormal electrocardiogram R94.31 Plan She previously was noted to have an abnormal electrocardiogram. I would like us to repeat it. It was read as having an inferior myocardial infarction but I do not think that there is any evidence of the above. I will send a copy to your office. An echocardiogram will be performed to corroborate the above. Thank you for allowing me to participate in her care. 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) Coding Level of Care Code Off vis,new,level 4 Diagnoses Essential (primary) hypertension I10 Abnormal electrocardiogram R94.31 Coding Level of Care Code Off vis,new,level 4 Diagnoses Essential (primary) hypertension I10 Abnormal electrocardiogram R94.31 Supplemental Info Supplemental Information Labs LDL Cholesterol 114 mg/dL (0-130) 05/31/17 HDL Cholesterol 60 mg/dL (40-) 05/31/17 Triglycerides 99 mg/dL (-199) 05/31/17 VLDL Cholesterol 20 mg/dL (5-40) 05/31/17 Diagnostics Electrocardiogram 08/04/18 Chest X-Ray 08/05/18 09/30/18 0934 <Electronically signed by Reggie Sparks MD> Date Reggie Sparks MD Cosigner Signature: Date (if applicable) CC: OPAL Flores; Nurys Flores Start: 08-10-2018 End: 08-10-2018 Discharge Instruction Comments: See Note; NOTES: [facility] Medical Records Department [address] [facility] [place] [address] Instructions for Home/Discharge Instructions 08/10/18 1438 MR#: [id number] Acct: [id number] Name: YASSINE RUIZ Rep #: [id number] : 1960 58 From: Nurys Rosa MD PCP: Hortencia Flores NP Status: [facility] Dis[place] Diet: - - increase water intake x 72 hours to a minimum of 100 ounces daily Discharge Activity: Return to Normal Activity, May Drive - when you are no longer taking pain/narcotic medicines., May Shower, May Take a Tub Bath - in 7 days. Return to work on:: 08/17/18 May shower in (days): 0 - TODAY May resume sexual activity in: 2 weeks Weight Bearing Status: Full weight bearing Lifting Restrictions: 5 pounds for 1 week Additional Activity Instructions:: Ambulate often with periods of rest in between Call your doctor if your incision/area has: Sudden Increased Bleeding, Increased Pain/ Swelling Call your doctor if you observe: Fever of 101 or Higher, Inability to urinate, Inability to have a bowel movement, Using more than one pad per hour, Shortness of breath Remove Dressing in (days):: 1 - remove dressings with soap and water after 24 hours and leave incisions open to air Cleanse incision/area with: Soap AND Water Allergies/Adverse Reactions: Allergies latex Allergy (Verified 08/04/18 12:06) Swelling plastic tape Allergy (Uncoded 08/04/18 12:06) Swelling Medications to take at Discharge Amitriptyline HCl 50 mg PO QHS 08/18/15 Atenolol [Tenormin] 25 mg PO DAILY 08/18/15 Escitalopram Oxalate [Lexapro] 20 mg PO QHS 08/18/15 Spironolactone [Aldactone] 100 mg PO DAILY 08/18/15 Cholecalciferol (Vitamin D3) [Vitamin D3] 2,000 unit PO DAILY 07/06/16 Multivitamin [Multiple Vitamins] 1 each PO DAILY 08/04/18 Orders to be completed after discharge: 12 Lead EKG [[facility]S] Time Frame: 08/04/18, Facility: [facility], Location: Cardiovascular Services Partial Thromboplast Time Time Frame: 08/04/18, Location: Laboratory CBC-Complete Blood Cnt No Diff Time Frame: 08/04/18, Location: Laboratory Liver Profile Time Frame: 08/04/18, Location: Laboratory Prothrombin Time w/INR Time Frame: 08/04/18, Location: Laboratory Primary Care Physician: Hortencia Flores NP-C [Primary Care Provider] - Test Results: Test results from this visit will be discussed in further detail at your follow-up appointment, if applicable. Please Follow Up With: Nurys Rosa MD When: 1-2 weeks Proposed Discharge Date: 08/10/18 08/10/18 1441 <Electronically signed by Nurys Rosa MD> Date Nurys Rosa MD CC: RADIO PERFORMER Hortencia Flores Signed Hortencia Flores Start: 08-10-2018 End: 08-10-2018 Operative Report Comments: See Note; NOTES: [facility] Medical Records Department [address] [place] [address] Operative Report 08/10/18 1430 MR#: [id number] Acct: [id number] Name: YASSINE RUIZ Rep #: [id number] : 1960 58 From: Nurys Rosa MD PCP: Hortencia Flores NP Status: REG SDC Y Location: [place] [address]-1 Problem List (1) Ovarian cyst Status: Acute Report of Operation Date of Procedure: 08/10/18 Pre-Operative Diagnosis: Right adnexal mass Post-Operative Diagnosis: Right pelvic adhesive disease involving the right ovary right fallopian tube along with a separate 1-1/2 cm mass of the posterior surface of the uterus Surgery/Procedure Performed:: Operative laparoscopy right salpingo-oophorectomy removal of posterior uterine mass and enterolysis Description of Surgical Findings:: Uterus was sounded to approximately 8 cm in anteflexed position. Upon entry into the abdominal cavity it was noted that there was a large amount of pelvic adhesive disease surrounding the right ovary right fallopian tube and this 1.5 similar mass in the posterior surface of the uterus otherwise the pelvis appeared to be normal. attendant coin operated laundry: None attendant coin operated laundry: Robbie Broderick Type of Anesthesia:: General Anesthesiologist: [place] Special Medications: Cefotetan 2 g IV preoperatively Specimen's removed: Right fallopian tube, right ovary, posterior uterine solid mass Drains: None Estimated Blood Loss (mL): Minimal Fluids Replaced: Lactated Ringer's Description of Procedure: Patient presented in the n.p.o. status and had undergone a bowel preparation in the home setting. She is placed on the operating room table in the centimeters bag was in place. Patient had monitors placed and underwent a general anesthetic. Once it was found be adequate she is placed in dorsal lithotomy position via the Sky stirrups prepped and she was prepped and draped in normal sterile fashion. We did a timeout that occurred appropriately as well. The weighted speculum was placed to the vaginal vault letter to been emptied of remaining urine with a straight cath and was noted to be clear. The antilipid the cervix was grasped elevated and the uterine manipulator was placed to the cervical eyes for manipulation of the uterus all other instruments removed from the vagina. Changing gloves are into the top of the patient the prior incision site was once again incised. Sequential ligation and transection of the adipose tissue followed by the fascial tissue and entry into the peritoneum occurred manually. This was noted to be hemostatic. The trocar was placed directly into the incision and secured with the fascial layer. The lap scope was assembled and placed into the umbilical trocar and CO2 gas was infused into the abdominal cavity with investigation of the pelvis occurring. 2 additional 5 mm trochars were placed in direct under direct visualization in the right and left lower quadrants. The LigaSure machine was then used to aid with enteral lysis to free the fallopian tube and ovary from the pelvic adhesive disease as well as from the posterior uterine mass that was noted. That mass appeared to be fibroid-like or potentially an epiploicae 8 that had infarcted and attached to the back of the uterine wall. The mesosalpinx was transected and ligated the fallopian tube was then disconnected from the uterus and taken out through 1 of our training and development assistant ports and hemostasis was noted. The ureter was noted to be well away from the area of operation and the flow the right ovary was then elevated uterine ovarian ligament was cauterized and transected followed by removal of the ovary itself from the pelvic adhesive disease along the posterior wall hemostasis was noted. The ovary was then removed through the umbilical trocar site. Lastly the solid density on the posterior surface of the uterine wall was grasped and disconnected cauterized and removed through the umbilical trocar as well. Irrigation of the pelvis occurred hemostasis was noted. She was removed from the abdomen ureters were both noted to be peristalsing bilaterally and well away from the area of operation all sponge and instrument counts were correct x2. The CO2 gas was released from the abdominal cavity trochars were released the fascial layer was identified at the umbilicus and 0 Vicryl suture was used in a running interlocking stitch to reapproximate this layer followed by subcuticular relaxation of the skin and subcuticular layer with a 4-0 Monocryl the umbilicus. The left and right 5 mm ports were then closed with subcuticular 4-0 Monocryl at this point in time then sponge instrument and needle counts were correct x2. Patient was awakened in stable condition after the uterine manipulator had been removed from the vagina per myself patient will be taken recovery room with discharge to the home setting Grafts/Implants Used: None - Complications None - Admit VTE Documentation VTE Present on Admission: No VTE Mechan Device Prophylaxis: SCD's VTE Pharm Prophylaxis ordered?: No Reason prophylaxis not ordered:: Procedure Not Indicated 08/10/18 4970 <Electronically signed by Nurys Rosa MD> Date Nurys Rosa MD CC: OPAL Flores; Nurys Rosa MD Signed Hortencia Flores Start: 08-10-2018 End: 08-10-2018 History and Physical Exam Comments: See Note; NOTES: [facility] Medical Records Department [address] [place] [address] History and Physical 08/10/18 0754 MR#: [id number] Acct: [id number] Name: YASSINE RUIZ Rep #: [id number] : 1960 58 From: Nurys Rosa MD PCP: Hortencia Flores NP Status: REG SDC Y Location: [place] [address] ADDENDUM by Nurys Rosa MD on 08/10/18 at 1334 Code Visit Evaluation of prior EKG by the pcp and anesthesia verified stability to proceed with surgery. 08/10/18 1334 <Electronically signed by Nurys Rosa MD> Date Nurys Rosa MD cc: RADIO PERFORMER Hortencia Flores; Nurys Rosa MD * Signed Problem List (1) Ovarian cyst Status: Acute History of Present Illness Date of Admission: 08/10/18 Chief Complaint: right ovarian cyst The patient is a 58 year old, nulligravid female. She is an e-ciagrette user. Prior LSO laparoscopically for cyst of fallopian tube and adhesive disease causing ovarian cyst of left. Noted to have abdominal swelling. Imaging revealed suspicion for dermoid of right ovary. Past Medical History Medical History: Medical History (Last Updated 08/10/18 @ 07:58 by Nurys Rosa MD) History of hysteroscopy Z98.890 [place] teeth extracted K08.409 Allergies latex Allergy (Verified 08/04/18 12:06) Swelling plastic tape Allergy (Uncoded 08/04/18 12:06) Swelling Home Medications: Ambulatory Orders Medication Instructions Recorded Amitriptyline HCl 50 mg PO QHS 08/18/15 Atenolol [Tenormin] 25 mg PO DAILY 08/18/15 Escitalopram Oxalate [Lexapro] 20 mg PO QHS 08/18/15 Surgical History: Surgical History (Last Updated 08/10/18 @ 07:58 by Nurys Rosa MD) H/O dilation and curettage Z98.890 History of laparoscopy Z98.890 History of tonsillectomy Z90.89 Surgical History: dilatation and curettage, tonsillectomy GALLERY INTERN History: ovarian cysts Lives: Spouse/ Significant Other - current e-cigarette user Smoking Status: Former smoker Tobacco Use: Vapor Alcohol: Occasional Drugs: None Review of Systems Constitutional: Denies: Chills, Fever, Weight Change HEENT: Denies: Difficulty Hearing, Difficulty Swallowing, Nasal bleeding, Nasal Congestion, Sore Throat Cardiovascular: Denies: Chest Pain, Palpitations Respiratory: Denies: Shortness of Breath, Wheezing Gastrointestinal: Reports: - - bloating Genitourinary: Denies: Dysuria, Frequency, Hematuria, Incontinence, Urgency Musculoskeletal: Denies: Joint Pain, Muscle pain Skin: Denies: Lesions, Skin Changes Neurological: Denies: Focal weakness, Numbness Psychiatric: Denies: Anxiety, Depression Endocrine: Denies: Heat/ Cold Intolerance Hematologic/ Lymphatic: Denies: Easy Bleeding VTE Information - Inpt Only VTE Present on Admission: No VTE Mechan Device Prophylaxis: SCD's VTE Pharm Prophylaxis ordered?: No Reason prophylaxis not ordered:: Procedure Not Indicated Subjective: Healthy appearing female. No acute distress. - Physical Exam General: No apparent distress, Well developed, Well nourished HEENT: PERRLA, EOMI, Normocephalic Oral: Moist Mucosa Neck: Supple Lungs: Clear to auscultation, Normal air movement, No wheeze Cardiovascular: Regular rate, Regular Rhythm Abdomen: Bowel Sounds Present, Soft, Non Tender, Non-Distended Extremities: No edema, No Calf Tenderness Skin: No rashes, No breakdown Musculoskeletal: No Muscle Wasting Neurological: Cranial nerves II-XII grossly intact Assessment/Plan All Active Problems Paratubal cyst (Acute) Ovarian cyst (Acute) Stenotic cervical os (Acute) Postmenopausal bleeding (Acute) 1. Right ovarian cyst, suspect dermoid from imaging findings laparoscopic removal 2. EKG changes cardiology involvement e-cigarette present and former cigarette user further evaluation occurring 08/10/18 0804 <Electronically signed by Nurys Rosa MD> Date Nurys Rosa MD [facility] Signature: Date (if applicable) CC: RADIO PERFORMER Hortencia Flores; Nurys Rosa MD Signed Hortencia Flores Start: 08-10-2018 End: 08-10-2018 History and Physical Exam Comments: See Note; NOTES: [facility] Medical Records Department [address] [place] [address] History and Physical 08/10/18 0754 MR#: [id number] Acct: [id number] Name: YASSINE RUIZ Rep #: [id number] : 1960 58 From: Nurys Rosa MD PCP: Hortencia Flores NP Status[place] [facility] [place] [facility] Problem List (1) Ovarian cyst Status: Acute History of Present Illness Date of Admission: 08/10/18 Chief Complaint: right ovarian cyst The patient is a 58 year old, nulligravid female. She is an e-ciagrette user. Prior LSO laparoscopically for cyst of fallopian tube and adhesive disease causing ovarian cyst of left. Noted to have abdominal swelling. Imaging revealed suspicion for dermoid of right ovary. Past Medical History Medical History: Medical History (Last Updated 08/10/18 @ 07:58 by Nurys Rosa MD) History of hysteroscopy Z98.890 [place] teeth extracted K08.409 Allergies latex Allergy (Verified 08/04/18 12:06) Swelling plastic tape Allergy (Uncoded 08/04/18 12:06) Swelling Home Medications: Ambulatory Orders Medication Instructions Recorded Amitriptyline HCl 50 mg PO QHS 08/18/15 Atenolol [Tenormin] 25 mg PO DAILY 08/18/15 Escitalopram Oxalate [Lexapro] 20 mg PO QHS 08/18/15 Surgical History: Surgical History (Last Updated 08/10/18 @ 07:58 by Nurys Rosa MD) H/O dilation and curettage Z98.890 History of laparoscopy Z98.890 History of tonsillectomy Z90.89 Surgical History: dilatation and curettage, tonsillectomy GALLERY INTERN History: ovarian cysts Lives: Spouse/ Significant Other - current e-cigarette user Smoking Status: Former smoker Tobacco Use: Vapor Alcohol: Occasional Drugs: None Review of Systems Constitutional: Denies: Chills, Fever, Weight Change HEENT: Denies: Difficulty Hearing, Difficulty Swallowing, Nasal bleeding, Nasal Congestion, Sore Throat Cardiovascular: Denies: Chest Pain, Palpitations Respiratory: Denies: Shortness of Breath, Wheezing Gastrointestinal: Reports: - - bloating Genitourinary: Denies: Dysuria, Frequency, Hematuria, Incontinence, Urgency Musculoskeletal: Denies: Joint Pain, Muscle pain Skin: Denies: Lesions, Skin Changes Neurological: Denies: Focal weakness, Numbness Psychiatric: Denies: Anxiety, Depression Endocrine: Denies: Heat/ Cold Intolerance Hematologic/ Lymphatic: Denies: Easy Bleeding VTE Information - Inpt Only VTE Present on Admission: No VTE Mechan Device Prophylaxis: SCD's VTE Pharm Prophylaxis ordered?: No Reason prophylaxis not ordered:: Procedure Not Indicated Subjective: Healthy appearing female. No acute distress. - Physical Exam General: No apparent distress, Well developed, Well nourished HEENT: PERRLA, EOMI, Normocephalic Oral: Moist Mucosa Neck: Supple Lungs: Clear to auscultation, Normal air movement, No wheeze Cardiovascular: Regular rate, Regular Rhythm Abdomen: Bowel Sounds Present, Soft, Non Tender, Non-Distended Extremities: No edema, No Calf Tenderness Skin: No rashes, No breakdown Musculoskeletal: No Muscle Wasting Neurological: Cranial nerves II-XII grossly intact Assessment/Plan All Active Problems Paratubal cyst (Acute) Ovarian cyst (Acute) Stenotic cervical os (Acute) Postmenopausal bleeding (Acute) 1. Right ovarian cyst, suspect dermoid from imaging findings laparoscopic removal 2. EKG changes cardiology involvement e-cigarette present and former cigarette user further evaluation occurring 08/10/18 0804 <Electronically signed by Nurys Rosa MD> Date Nurys Rosa MD Cosigner Signature: Date (if applicable) CC: OPAL Flores; Nurys Rosa MD Signed Hortencia Flores Start: 08-05-2018 End: 08-05-2018 Chest PA and Lateral Comments: See Note; NOTES: [facility] Imaging Services [address] [place] [address] Chest PA and Lateral MR#: [id number] Acct: [id number] Name: YASSINE RUIZ Rep #: [id number] : 1960 F 58 From: Efrain Schilling MD PCP: Hortencia Flores NP Status: REG CLI Study: Chest PA and Lateral Date of Exam: 08/05/18 Exam# [id number] Ordering Dr: Hortencia Flores RADIO PERFORMER-C STUDY: X-RAY CHEST REASON FOR EXAM: Female, 58 years old. Cough TECHNIQUE: PA and lateral COMPARISON: March 11, 2016. FINDINGS: The lungs are clear and expanded. There is no demonstrated pleural abnormality. Normal size heart. Normal mediastinum and aranza. Normal visualized pulmonary arteries. Normal visualized aortic arch and descending thoracic aorta. Dorsal spine demonstrates spondylosis.. Normal visualized ribs, clavicles, and shoulders. There is no demonstrated abnormality of the visualized soft tissue structures of the upper abdomen. No significant change since prior exam RAD/Chest PA and Lateral IMPRESSION: No acute cardiopulmonary pathology Electronically Signed: Efrain Schilling MD at 21:57 EDT , Service support , CC: OPAL Flores Aviation Electronic Warfare Operator: Signed Hortencia Flores Work Phone: Start: 08-05-2018 End: 08-05-2018 12 lead ECG Comments: See Note; NOTES: [facility] Cardiovascular Services [address] [place] [address] 12 Lead EKG 08/04/18 1647 MR#: [id number] Acct: [id number] Name: YASSINE RUIZ Rep #: [id number] : 1960 58 From: Sg Sky MD Attending Dr: Nurys Rosa MD Status: [place] [facility]: Nurys Rosa MD Date: 08/04/18 [place] [facility] Sex: F C Admitted: Test Reason : PRE OP Blood Pressure : / mmHG Vent. Rate : 079 BPM Atrial Rate : 079 BPM P-R Int : 162 ms QRS Dur : 086 ms QT Int : 390 ms P-R-T Axes : -04 -02 020 degrees QTc Int : 447 ms Normal sinus rhythm Nonspecific ST abnormality Inferior LA, age undetermined, cannot be excluded Abnormal ECG Confirmed by TANVI JUSTIN, SG ([id number]), copy editor ELODIA KNOWLES ([id number]) on 08/05/2018 1:39:18 PM Referred By: Nurys Rosa Confirmed By:SG SKY MD 08/05/18 1339 Date Sg Sky MD CC: RADIO PERFORMER Hortencia Flores; Nurys Rosa MD Signed Hortencia Flores Start: 07-30-2018 End: 07-31-2018 Dexa Bone Density Study Comments: See Note; NOTES: [facility] Imaging Services [address] [place] [address] Dexa Bone Density Study MR#: [id number] Acct: [id number] Name: YASSINE RUIZ Rep #: [id number] : 1960 F 58 From: Logan Russell MD PCP: Hortencia Flores NP Status: REG CLI Study: Dexa Bone Density Study Date of Exam: 07/30/18 Exam# [id number] Ordering Dr: Nurys Rosa MD STUDY: DUAL ENERGY X-RAY ABSORPTIOMETRY / DXA REASON FOR EXAM: Female, 58 years old. The patient is postmenopausal. Loss of height. TECHNIQUE: Bone Mineral Density (BMD) measurements of lumbar spine and bilateral hips were obtained. COMPARISON: Comparison is made with prior study dated January 23, 2016. FINDINGS: Lumbar Spine (L1-L4): g/cm2 (1.179) / T-score (0.0) / Z-score (1.0) Findings are suggestive of normal bone density with a low fracture risk. Left Femur Total: g/cm2 (0.941) / T-score (-0.5) / Z-score (0.3) Left Femoral Neck: g/cm2 (0.883) / T-score (-1.1) / Z-score (0.0) Right Femur Total: g/cm2 (0.921) / T-score (-0.7) / Z-score (0.1) Right Femoral Neck: g/cm2 (0.852) / T-score (-1.3) / Z-score (-0.2) The T-Scores on the most recent prior examination were: Lumbar Spine (L1-L4): There has been worsening of bone density since the previous examination. Left Femur Total: which represents a worsening of 2.9%. Right Femur Total: which represents a worsening of 3.7%. BD/Dexa Bone Density Study IMPRESSION: The patient is considered osteopenic as outlined below according to World Marcos Organization (WHO) criteria with a low fracture risk. There has been worsening of bone density since the previous examination. Reference Information: The T-score is the number of standard deviations above or below the standard which is normal for young adults at their peak bone mineral density. The World Health Organization (WHO) interprets the T-scores as follows: Above -1 Normal bone density Between -1 and -2.5 Osteopenia Equal to / or below -2.5 Osteoporosis As a practical clinical guideline, osteopenia may be graded as follows: Mild -1 through -1.5 Moderate -1.6 through -2.0 Severe -2.1 through -2.4 The Z-score is the number of standard deviations above or below age-matched controls. A Z-score of less than -1.5 would be considered abnormal. References: 1. NIH Osteoporosis and Related Bone Diseases http://www.osteo.org 2. International Society for Clinical Densitometry http://www.iscd.org 3. National Osteoporosis Foundation http://www.nof.org Electronically Signed: Logan Niko, at 15:10 EDT , Service support , CC: OPAL Flores; Nurys Rosa MD Aviation Electronic Warfare Operator: Signed Hortencia Mariedeemariya Start: 07-17-2018 End: 07-20-2018 Pelvis WITH IV Contrast Comments: See Note; NOTES: [facility] Imaging Services [address] [place] [address] Pelvis WITH IV Contrast MR#: [id number] Acct: [id number] Name: YASSINE RUIZ Rep #: [id number] : 1960 F 58 From: Darian Bennett MD PCP: Hortencia Flores NP Status: REG CLI Study: Pelvis WITH IV Contrast Date of Exam: 07/17/18 Exam# [id number] Ordering Dr: Nurys Rosa MD HISTORY: RIGHT PELVIC MASS EXAMINATION: CT Pelvis W/ Contrast TECHNIQUE: Helically acquired images were obtained of the pelvis. A radiation dose optimization technique was used for this scan. IV Contrast dosage and agent: 100CC Isovue 300 Oral contrast: None. COMPARISON: None FINDINGS: LYMPH NODES: No enlarged pelvic lymph nodes. URINARY BLADDER: Unremarkable. REPRODUCTIVE ORGANS: 1.6 cm diameter oval fatty attenuation lesion in the right ovary compatible with a small incidental right ovarian dermoid. Uterus and left ovary unremarkable. ABDOMINAL WALL: No discrete abdominal or pelvic wall hernia observed. BONES: No lytic or blastic abnormality observed. BOWEL: Normal appendix. Scattered sigmoid colon diverticula. CT/Pelvis WITH IV Contrast IMPRESSION: Small incidental 1.6 cm right ovarian dermoid. Individualized dose optimization techniques were used for this CT. at 0310 Reported and signed by: Darian Bennett MD Electronically Signed: Darian Bennett, at 3:09 EDT Tel , Service support , CC: Hortencia Flores NP; Nurys Rosa MD Aviation Electronic Warfare Operator: Signed Hortencia Flores Start: 04-17-2018 End: 04-17-2018 SCREENING MAMM (CAD), BILAT Comments: See Note; NOTES: [facility] Imaging Services [address] [place] [address] SCREENING MAMM (CAD), BILAT MR#: [id number] Acct: [id number] Name: YASSINE RUIZ Rep #: [id number] : 1960 F 57 From: Logan Russell MD PCP: Hortencia Flores NP Status: REG CLI Study: SCREENING MAMM (CAD), BILAT Date of Exam: 04/17/18 Exam# [id number] Ordering Dr: Hortencia Flores RADIO PERFORMER-C MAMMOGRAPHY - BILATERAL SCREENING REASON FOR EXAM: Female, 57 years old. Routine annual screening examination. PERTINENT HISTORY: Grandmother with breast cancer. Prior left stereotactic breast biopsy. TECHNIQUE: Digital bilateral breast crystal (3D mammographic acquisition) in the CC and MLO projections. 2-D mediolateral oblique (MLO) and craniocaudad (CC) views of both breasts were obtained. CAD: Full Field Digital Mammography with Computer Added Detection was performed. COMPARISON: Comparison is made with prior study dated January 24, 2017 and January 23, 2016. FINDINGS: Breast Composition: There are scattered areas of fibroglandular density. There are no dominant masses or suspicious calcifications. Stable benign-appearing bilateral axillary lymph nodes. No other significant abnormalities are identified. There has been no significant change since the prior study. BI/SCREENING MAMM (CAD), BILAT IMPRESSION: Stable bilateral screening mammogram. Yearly follow-up mammogram recommended. (A) ASSESSMENT CATEGORY: BIRADS Category 2: Benign. A letter regarding these results will be sent to the patient by the facility within 30 days. Approximately 10% of breast cancers are not detected by mammography. A normal mammogram should not delay biopsy of a clinically suspicious abnormality. [id number] Electronically Signed: Logan Russell MD at 8:55 EST Tel [phone], Service support , CC: Hortencia Flores NP Aviation Electronic Warfare Operator: Signed Hortencia Flores Work Phone: Start: 01-24-2017 End: 01-24-2017 SCREENING MAMM (CAD), BILAT Comments: See Note; NOTES: [facility] Imaging Services [address] [place] [address] SCREENING MAMM (CAD), BILAT MR#: [id number] Acct: [id number] Name: YASSINE RUIZ Rep #: [id number] : 1960 F 56 From: Logna Russell MD PCP: Hortencia Flores Status: [facility] CL Study: SCREENING MAMM (CAD), BILAT Date of Exam: 01/24/17 Exam# [id number] Ordering Dr: Nurys Rosa MD MAMMOGRAPHY - BILATERAL SCREENING REASON FOR EXAM: Female, 56 years old. Routine annual screening examination. PERTINENT HISTORY: Grandmother with breast cancer. TECHNIQUE: Digital bilateral breast crystal (3D mammographic acquisition) in the CC and MLO projections. 2-D mediolateral oblique (MLO) and craniocaudad (CC) views of both breasts were obtained. CAD: Full Field Digital Mammography with Computer Added Detection was performed. COMPARISON: Comparison is made with prior study dated January 23, 2016 and September 16, 2014. FINDINGS: Breast Composition: There are scattered areas of fibroglandular density. There are no dominant masses or suspicious calcifications. No other significant abnormalities are identified. There has been no significant change since the prior study. HPBI/SCREENING MAMM (CAD), BILAT IMPRESSION: Stable bilateral screening mammogram. Yearly follow-up mammogram recommended. (A) ASSESSMENT CATEGORY: BIRADS Category 1: Negative. A letter regarding these results will be sent to the patient by the facility within 30 days. Approximately 10% of breast cancers are not detected by mammography. A normal mammogram should not delay biopsy of a clinically suspicious abnormality. [id number] Electronically Signed: Logan Russell MD at 11:23 EDT Tel [phone], Service support , CC: Hortencia Flores; Nurys Rosa MD Aviation Electronic Warfare Operator: Signed Hortencia Flores Start: 07-06-2016 End: 07-06-2016 Emergency Department Summary Comments: See Note; NOTES: [facility] Medical Records Department [address] [place] [address] Emergency Department Summary MR#: [id number] Acct: [id number] Name: YASSINE RUIZ Rep #: [id number] : 1960 56 From: Simran Santos MD PCP: Hortencia Flores Status: DEP ER DATE OF SERVICE: 07/06/2016 CHIEF COMPLAINT: Possible allergic reaction. HART HISTORY: The patient is a 56-year-old female, who had a 3-hour dental procedure done yesterday. She woke early this morning with facial redness, itching and mild swelling. She thinks she is reacting to something that they used on her yesterday. She denies any tongue swelling or difficulty swallowing. She has no active symptoms for at least 10 hours prior to arrival here. She did call her dentist, who called her in a prescription for penicillin. She feels that this is more of an allergic reaction as opposed to an infection. She has taken Benadryl prior to arrival. PHYSICAL EXAMINATION: VITAL SIGNS: Unremarkable. GENERAL: The patient is in no acute distress. HEAD AND NECK: Reveals no tongue edema. She has a strong voice. She is tolerating secretions well. SKIN: Does reveal erythema on the lower face and on the anterior upper neck. She has no lymph node enlargement. Uvula is midline. HOSPITAL COURSE: The patient is given p.o. prednisone, Benadryl and Pepcid here. She was observed for an hour. On repeat evaluation, symptoms are improving. She has Benadryl and Pepcid at home that she will continue. She will be written a prescription for prednisone. DISPOSITION: Discharge. IMPRESSION: Allergic reaction. Simran Santos MD T: NTS JOB: [id number] 07/06/16 2336 <Electronically signed by Simran Santos MD> Date Simran Santos MD Cosigner Signature (If Indicated): Date CC: Hortencia Flores Date Dictated: 07/06/161738 Date Transcribed: 07/06/161738 Aviation Electronic Warfare Operator: Signed Hortencia Flores Start: 07-06-2016 End: 07-06-2016 Discharge Instruction Comments: See Note; NOTES: [facility] Medical Records Department [address] [place] [address] Discharge Instruction 07/06/161736 MR#: [id number] Acct: [id number] Name: YASSINE RUIZ Rep #: [id number] : 1960 56 From: Simran Santos MD PCP: Hortencia Flores Status: REG ER ED Disposition - Plan for ED Patient: Disposition: Home or Assisted Living Chief Complaint: Allergic Reaction Instructions: ED Allergic Reaction General Other Prescriptions: PredniSONE 10 mg PO DAILY #48 tablet What to do if you have Problems For any increased pain, shortness of breath, bleeding, nausea or vomiting, chest pain, or any unexpected problems, contact your Primary Care Provider. Call [facility] ([phone]) or report to the closest Emergency Room. Call 911 if necessary. 07/06/16 9714 <Electronically signed by Simran Santos MD> Date Simran Santos MD Cosigner Signature (If Indicated): Date CC: Hortencia Flores Hortencia Marielis Start: 03-14-2016 End: 03-14-2016 12 lead ECG Comments: See Note; NOTES: [facility] Cardiovascular Services [address] [place] [address] 12 Lead EKG 03/11/16 1757 MR#: [id number] Acct: [id number] Name: YASSINE RUIZ Rep #: [id number] : 1960 55 From: Sg Sky MD Attending Dr: Status: DEP ER Ordering Dr: Ximena Smith MD Date: 03/11/16 Location: ED Sex: F C Admitted: Test Reason : CP Blood Pressure : / mmHG Vent. Rate : 097 BPM Atrial Rate : 097 BPM P-R Int : 176 ms QRS Dur : 082 ms QT Int : 352 ms P-R-T Axes : 025 -11 021 degrees QTc Int : 447 ms Normal sinus rhythm Poor R wave progression Confirmed by TANVI JUSTIN, SG ([id number]), copy editor PORSCHE CHEATHAM ([id number]) on 03/14/2016 1:43:59 PM Referred By: CARMEN Confirmed By:SG SKY MD 03/14/16 1344 Date Sg Sky MD CC: Hortencia Marielis Date Dictated: 03/11/161756 Date Transcribed: 03/11/161756 Aviation Electronic Warfare Operator: Signed Hortencia Flores Start: 03-12-2016 End: 03-12-2016 Emergency Department Summary Comments: See Note; NOTES: [facility] Medical Records Department [address] [facility] [place] [address] Emergency Department Summary MR#: [id number] Acct: [id number] Name: YASSINE RUIZ Rep #: [id number] : 1960 55 From: Ximena Smith MD PCP: Hortencia Flores Status: DEP ER DATE OF SERVICE: 03/11/2016 HISTORY OF PRESENT ILLNESS: The patient presents for concerns for elevated blood pressure and chest pain. The patient states that her blood pressure today was elevated to 149/106 and a later check showed 154/106. She is asymptomatic today. She states she did have chest pain over the weekend that lasted for 3 days, but has since resolved. She has had no chest pain today. It was left-sided confined to the area of the superior breast radiating later into her left subscapular region. She took a Percocet that her had and did have improvement in her pain. She states she is under a lot of stress as her father is in hospice right now. She does have an appointment tomorrow with her primary care physician. She denies any fever, shortness of breath, cough, abdominal pain, nausea, vomiting or other complaints. History of hypertension, anxiety. PHYSICAL EXAMINATION: VITAL SIGNS: Reviewed. The patient is normotensive at 127/73, afebrile. No hypoxia. GENERAL: Well-nourished and well-developed in no distress. NECK: Supple. HEART: Regular in rate and rhythm without murmur. LUNGS: Clear to auscultation bilaterally. Chest is nontender. BACK: Nontender. There is no rash on the torso. ABDOMEN: Soft and nontender, nondistended. EXTREMITIES: Nontender, no edema, 2+ pulses. No rash. EMERGENCY DEPARTMENT COURSE: The patient presents because of the concern for hypertension and the chest pain over the weekend. She is normotensive in the Emergency Department. She was reassured that her blood pressure at home while asymptomatic was not high enough to cause any issues. A chest x-ray was performed showing no acute process. EKG showed sinus rhythm without ischemia or ectopy. CBC and BMP were unremarkable. Troponin was negative. The patient has not had chest pain today, but did have it yesterday. We discussed that if she has chest pain again, she should return to the Emergency Department for evaluation, blood pressure was reassessed and continued to decrease. At discharge, it was 118/70. The patient remained pain free and still feels well. She will keep her appointment tomorrow morning with her primary care provider. She was discharged home with her . IMPRESSION: 1. Chronic hypertension. 2. Chest pain, resolved. XIMENA SMITH MD T: NTS JOB: [id number] 03/12/16 0051 <Electronically signed by Ximena Smith MD> Date Ximena Smith MD Cosigner Signature (If Indicated): Date CC: Hortencia Flores Date Dictated: 03/12/1611 Date Transcribed: 03/12/1611 Aviation Electronic Warfare Operator: Signed Hortencia Flores Start: 03-12-2016 End: 03-12-2016 Discharge Instruction Comments: See Note; NOTES: [facility] Medical Records Department [address] [place] [address] Discharge Instruction 03/11/16 2149 MR#: [id number] Acct: [id number] Name: YASSINE RUIZ Rep #: [id number] : 1960 55 From: Ximena Smith MD PCP: Hortencia Flores Status: DEP ER ED Disposition - Plan for ED Patient: Disposition: Home or Assisted Living Chief Complaint: General Illness Instructions: ED HTN Established, ED Chest Pain UKO Referrals: Hortencia Flores [Primary Care Provider] - Keep Kenny appointment What to do if you have Problems For any increased pain, shortness of breath, bleeding, nausea or vomiting, chest pain, or any unexpected problems, contact your Primary Care Provider. Call [facility] ([phone]) or report to the closest Emergency Room. Call 911 if necessary. 03/12/16 0038 <Electronically signed by Ximena Smith MD> Date Ximena Smith MD Cosigner Signature (If Indicated): Date CC: Hortencia Flores Start: 03-11-2016 End: 03-11-2016 Chest PA and Lateral Comments: See Note; NOTES: [facility] Imaging Services [address] [place] [address] Verdana 4d Chest PA and Lateral MR#: [id number] Acct: [id number] Name: YASSINE RUIZ Rep #: [id number] : 1960 F 55 From: Rangel Obregon DO PCP: Hortencia Flores Status: REG ER Study: Chest PA and Lateral Date of Exam: 03/11/16 Exam# [id number] Ordering Dr: Ximena Smith MD STUDY: X-RAY CHEST REASON FOR EXAM: Female, 55 years old. Chest pain TECHNIQUE: Single frontal view COMPARISON: None. FINDINGS: The lungs are clear and expanded. There is no demonstrated pleural abnormality. Normal size heart. Normal mediastinum and aranza. Normal visualized pulmonary arteries. Normal visualized aortic arch and descending thoracic aorta. Degenerative changes of the thoracic spine. Normal visualized ribs, clavicles, and shoulders. There is no demonstrated abnormality of the visualized soft tissue structures of the upper abdomen. RAD/Chest PA and Lateral IMPRESSION: Normal x-ray examination of the chest. Electronically Signed: Rangel Obregon DO at 21:05 EST Tel [phone], Service support [phone], CC: Hortencia Flores; Ximena Smith MD Aviation Electronic Warfare Operator: Signed Hortencia Flores Start: 01-23-2016 End: 01-25-2016 Bilat Scrn Digital AND CAD Comments: See Note; NOTES: [facility] Imaging Services [address] [place] [address] Verdana 4d Bilat Scrn Digital AND CAD MR#: [id number] Acct: [id number] Name: YASSINE RUIZ Rep #: [id number] : 1960 F 55 From: Dar Medel MD PCP: Hortencia Flores Status: REG CLI Study: Bilat Scrn Digital AND CAD Date of Exam: 01/23/16 Exam# [id number] Ordering Dr: Yoanna Tejada DO MAMMOGRAPHY - BILATERAL SCREENING REASON FOR EXAM: Female, 55 years old. Routine annual screening examination. PERTINENT HISTORY: FM HX- MAT GRANDMOTHER @ 50'S. LT STEREO BX 2009 TECHNIQUE: Digital bilateral breast crystal (3D mammographic acquisition) in the CC and MLO projections. 2-D mediolateral oblique (MLO) and craniocaudad (CC) views of both breasts were obtained. CAD: Full Field Digital Mammography with Computer Added Detection was performed. COMPARISON: MG - Breast Bilateral - 12:10, MG - Breast Bilateral - 09:04 FINDINGS: Breast Composition: There are scattered areas of fibroglandular density. There are no dominant masses or suspicious calcifications. No other significant abnormalities are identified. HPBI/Bilat Scrn Digital AND CAD IMPRESSION: Stable bilateral screening mammogram. Yearly follow-up mammogram recommended. (A) ASSESSMENT CATEGORY: BIRADS Category 2: Benign. A letter regarding these results will be sent to the patient by the facility within 30 days. Approximately 10% of breast cancers are not detected by mammography. A normal mammogram should not delay biopsy of a clinically suspicious abnormality. [id number] Electronically Signed: Dar Medel MD at 17:13 EDT Tel , Service support [phone], CC: Hortencia Flores; Yoanna Tejada DO Aviation Electronic Warfare Operator: Signed Yoanna Tejada Work Phone: Start: 01-23-2016 End: 01-29-2016 Dexa Bone Density Study (HP) Comments: See Note; NOTES: [facility] Imaging Services [address] [place] [address] Verdana 4d Dexa Bone Density Study () MR#: [id number] Acct: [id number] Name: YASSINE RUIZ Rep #: [id number] : 1960 F 55 From: Logan Russell MD PCP: Hortencia Flores Status: REG CL Study: Dexa Bone Density Study (HP) Date of Exam: 01/23/16 Exam# [id number] Ordering Dr: Yoanna Tejada DO STUDY: DUAL ENERGY X-RAY ABSORPTIOMETRY / DXA REASON FOR EXAM: Female, 55 years old. The patient is postmenopausal. Loss of height. TECHNIQUE: Bone Mineral Density (BMD) measurements of lumbar spine and bilateral hips were obtained. COMPARISON: Comparison is made with prior study dated July 06, 2013. FINDINGS: Lumbar Spine (L1-L4): g/cm2 (1.148) / T-score (-0.1) / Z-score (0.7) Findings are suggestive of normal bone density with a low fracture risk. Left Femur Total: g/cm2 (0.969) / T-score (-0.3) / Z-score (0.4) Left Femoral Neck: g/cm2 (0.901) / T-score (-1.0) / Z-score (0.1) Right Femur Total: g/cm2 (0.956) / T-score (-0.4) / Z-score (0.3) Right Femoral Neck: g/cm2 (0.887) / T-score (-1.1) / Z-score (0.0) The T-Scores on the most recent prior examination were: Lumbar Spine (L1-L4): There has been worsening of bone density since the previous examination. Left Femur Total: which represents a worsening of 3.2%. Right Femur Total: which represents a worsening of 1.5%. HPBD/Dexa Bone Density Study (HP) IMPRESSION: The patient is considered osteopenic as outlined below according to World Marcos Organization (WHO) criteria with a low fracture risk. There has been worsening of bone density since the previous examination. Reference Information: The T-score is the number of standard deviations above or below the standard which is normal for young adults at their peak bone mineral density. The World Health Organization (WHO) interprets the T-scores as follows: Above -1 Normal bone density Between -1 and -2.5 Osteopenia Equal to / or below -2.5 Osteoporosis As a practical clinical guideline, osteopenia may be graded as follows: Mild -1 through -1.5 Moderate -1.6 through -2.0 Severe -2.1 through -2.4 The Z-score is the number of standard deviations above or below age-matched controls. A Z-score of less than -1.5 would be considered abnormal. References: 1. NIH Osteoporosis and Related Bone Diseases http://www.osteo.org 2. International Society for Clinical Densitometry http://www.iscd.org 3. National Osteoporosis Foundation http://www.nof.org Electronically Signed: Logan Russell MD at 14:28 EDT Tel [phone], Service support [phone], CC: Hortencia Flores; Yoanna Tejada DO Aviation Electronic Warfare Operator: Signed Yoanna Tejada Work Phone: Start: 10-26-2015 End: 10-26-2015 Operative Report Comments: See Note; NOTES: [facility] Medical Records Department [address] [place] [address] Operative Report MR#: [id number] Acct: [id number] Name: YASSINE RUIZ Rep #: [id number] : 1960 55 From: Nurys Rosa MD PCP: Hortencia Flores Status: [facility] DATE OF SERVICE: 10/23/2015 DATE OF SERVICE: October 23, 2015 PREOPERATIVE DIAGNOSIS: Left ovarian cyst. POSTOPERATIVE DIAGNOSES: Left ovarian cyst, left paratubal cyst and pelvic adhesive disease. PROCEDURES: Operative laparoscopy, left salpingo-oophorectomy, and enterolysis. SURGEON: Nurys Rosa M.D. SPINNING FRAME FIXER: Emma. ESTIMATED BLOOD LOSS: Less than 50 mL. FLUIDS: Lactated Ringer's. MEDICATIONS: Include cefotetan 2 g IV preoperatively. ANESTHESIA: General endotracheal. URINE: 100 mL of clear urine. INDICATION FOR PROCEDURE: The patient is a 55-year-old white female, who presents to the office with postmenopausal bleeding for which D and C due to the stenotic cervix had occurred and was noted to be benign tissue, but she was also noted per ultrasound to have this left ovarian cyst. She underwent serum tumor marker monitoring and slight elevation in ____ occurred. She was seen by oncology in [place] and they felt that this was a normal level. Their recommendation was to monitor. We repeated the ultrasound with notation of no change of that simple cyst on the left adnexal region and actually a normalization of the ____ the normal range was noted as well. The patient opting to have that left ovary removed along with fallopian tube. DESCRIPTION OF PROCEDURE: The patient underwent a bowel prep in the home situation and presented to the surgery suite. She underwent a general endotracheal anesthetic. Once found to be adequate, she was placed in dorsal lithotomy position via the Sky stirrups, prepped, draped in normal sterile fashion. Weighted speculum to the vagina. Ford catheter placed to the bladder. Anterior lip of the cervix was grasped and elevated. Uterine manipulator placed to the cervix. Changing gloves, turning to the top of the patient, a 12-mm incision was made at the umbilicus. Veress needle was assembled and placed into the abdominal cavity. Verification of intra-abdominal placement correctly with water test occurred. Two liters of CO2 gas placed into the abdominal cavity followed by removal of the Veress needle and placement of a 12-mm trocar Visiport disposable. Hemostasis was noted. Investigation of the pelvis revealed that the left adnexal region was noted to have a cyst mainly of the fallopian tubes, so there is more of a paratubal cyst with slight involvement of the ovary. Right ovary and fallopian tube were noted to be within normal limits. The patient had additional trocar sites placed at the right and left lower quadrants under direct visualization. These were 5 mm disposable trocars. Hemostasis was noted. The EnSeal was then used along with the grasper to manipulate the left fallopian tube, left ovary and cauterization and transection of the infundibulopelvic ligament occurred followed by mesosalpinx and the fallopian tube itself followed by disconnection from the utero-ovarian ligament. Hemostasis was noted. The instruments were removed from the abdomen. The camera was placed in the right lower quadrant port as the EndoCatch bag was placed through the umbilicus and the sample of the left fallopian tube and ovary was placed into the EndoCatch bag and then brought through the umbilicus. Hemostasis was noted. All contents within the bag was sent away for pathological evaluation. Irrigation of the pelvis thus commenced and hemostasis was noted. There were some pelvic adhesions noted around the round ligament to the upper abdominal wall. These were removed with sharp dissection and hemostasis was noted again. Irrigation occurred. The trocars were removed under direct visualization. Hemostasis noted. CO2 gas removed from the abdomen followed by the umbilical trocar being removed. The fascial layer was reapproximated at the umbilical 12 mm incision site with a 0 Vicryl suture, a [id number] stitch and hemostasis was noted. The subcuticular tissue was pulled together with 0 Vicryl suture as well at the umbilicus and 4-0 Monocryl was used in a subcuticular fashion at the right and left lower quadrants. Hemostasis was noted. All instruments, and needle counts correct x2. The vaginal uterine manipulator was removed ____ Ford catheter removed, hemostasis being noted. Sponge, instrument, needle counts correct x2. It should be noted that the ureters were noted to be peristalsing and well away from the area of operation before and after removal of the left fallopian tube and ovary. Nurys Rosa MD T: NTS JOB: [id number] 10/26/15 1441 <Electronically signed by Nurys Rosa MD> Date Nurys Rosa MD Cosigner Signature (If Indicated): Date CC: Hortencia Flores; Nurys Rosa MD Date Dictated: 10/23/151401 Date Transcribed: 10/23/151401 [employer] Electronic Warfare Operator: Signed Hortencia Flores Start: 10-23-2015 Antibody screen Hortencia Flores Comment on above: Reason for Type AND Screen/Red Cells: [facility] [id number] [place], [address] Start: 10-23-2015 End: 10-23-2015 Discharge Instruction Comments: See Note; NOTES: [facility] Medical Records Department [address] [facility] [place] [address] Instructions for Home/Discharge Instructions 10/23/15 1312 MR#: [id number] Acct: [id number] Name: YASSINE RUIZ Rep #: [id number] : 1960 55 From: Nurys Rosa MD PCP: Hortencia Flores [place] [facility] [place] Diet: No Restrictions - increase fluid intake for 48 hours. Discharge Activity: Return to Normal Activity, May Drive - when you are no longer taking pain/ narcotic medicines., May Shower, May Take a Tub Bath - in 7 days. May shower in (days): 1 - TODAY May resume sexual activity in: 1-2 weeks Weight Bearing Status: Full weight bearing Lifting Restrictions: 20 pounds for one week Additional Activity Instructions:: Ambulate often the next week after surgery. Nothing in the vagina for 5 days. Call your doctor if your incision/area has: Continuous Slow Oozing, Sudden Increased Bleeding, Increased Pain/ Swelling, Increased Redness, Foul Smelling Discharge Call your doctor if you observe: Fever of 101 or Higher, Inability to urinate, Inability to have a bowel movement, Using more than one pad per hour Remove Dressing in (days):: 1 - remove bandages in 1 day Cleanse incision/area with: Soap AND Water Allergies/Adverse Reactions: Allergies No Known Allergies Allergy (Verified 10/20/15 13:21) Medications to take at Discharge Amitriptyline HCl 50 mg PO QHS 08/18/15 Atenolol [Tenormin] 25 mg PO DAILY 08/18/15 Calcium Carbonate [Calcium] 600 mg PO BID 08/18/15 Cholecalciferol (VIT D3) [Vitamin D] 2,000 unit PO DAILY 08/18/15 Escitalopram Oxalate [Lexapro] 20 mg PO QHS 08/18/15 Multivits,Ca,Minerals/Iron/F A [Women's Daily Formula Caplet] 1 each PO DAILY 08/18/15 Remifemin 1 tab PO BID 08/18/15 Spironolactone [Aldactone] 100 mg PO DAILY 08/18/15 Water Pill 2 tab PO DAILY 08/18/15 Oxycodone HCl/Acetaminophen [Percocet 5/325] 1 - 2 tablet PO Q4H PRN PRN #14 tablet 08/28/15 Please Follow Up With: Nurys Rosa - [phone] When: 1-2 weeks postop 10/23/15 1314 <Electronically signed by Nurys Rosa MD> Date Nurys Rosa MD CC: Hortencia Flores Hortencia Flores Start: 10-23-2015 End: 10-23-2015 Operative Report Comments: See Note; NOTES: [facility] Medical Records Department [address] [place] [address] Operative Report 10/23/15 1308 MR#: [id number] Acct: [id number] Name: YASSINE RUIZ Rep #: [id number] : 1960 55 From: Nurys Rosa MD PCP: Hortencia Flores Status: REG SDC Y Location: [place] [address] Operative Report (Blank) Date of Procedure: 10/23/15 Preop: Left ovarian cyst Postop: Same + Left paratubal cyst + pelvic adhesive disease Procedure: Operative laparoscopy, left salpingo-oophorectomy, enterolysis Surgeon: Moe Assist: Shilpi EBL: less than 50cc Fluids: Lactated ringers Meds: Cefotetan 2 grams IV preop Anesthesia: GET Urine: 100cc clear urine 10/23/15 1312 <Electronically signed by Nurys Rosa MD> Date Nurys Rosa MD CC: Hortencia Flores; Nurys Rosa MD Signed Hortencia Flores Start: 10-06-2015 End: 10-06-2015 Ecg routine ecg w/least 12 lds w/i&r [MEASUREMENTS ANALYSIS] Date of Test: 10/06/2015 09:55:52; Heart Rate: 77; NC Interval: 186; QRS: 92; QT Interval: 380; Corrected QT Interval (QTc): 409; P Wave [place]: 20; QRS Wave [place]: -4; T Wave [place]: -1; Blood Pressure: 118/82 [ECG DIAGNOSTIC STATEMENTS] Date of Test: 10/06/2015 09:55:52; Summary: Sinus Rhythm WITHIN NORMAL LIMITS Hortencia Flores Work Phone: Comment on above: sinus rthym Start: 09-04-2015 End: 09-04-2015 Operative Report Comments: See Note; NOTES: [facility] Medical Records Department [address] [place] [address] Operative Report MR#: [id number] Acct: [id number] Name: YASSINE RUIZ Rep #: [id number] : 1960 55 From: Nurys Rosa MD PCP: Yoanna Tejada DO Status: [facility] DATE OF SERVICE: 08/28/2015 DATE OF SERVICE: August 28, 2015 PREOPERATIVE DIAGNOSES: Postmenopausal bleeding and stenotic cervical os. POSTOPERATIVE DIAGNOSES: Postmenopausal bleeding and stenotic cervical os. PROCEDURES: Dilatation and curettage fractional along with hysteroscopy. SURGEON: Nurys Rosa M.D. ESTIMATED BLOOD LOSS: Minimal. FLUIDS: Lactated Ringer's. MEDICATIONS: Include Mefoxin 2 g IV preoperatively along with 10 mL of 1% lidocaine placed locally to the cervix. ANESTHESIA: MAC anesthetic. URINE OUTPUT: Urine is about 25 mL of clear urine. INDICATION: The patient is a 55-year-old white female, who presents to the office with postmenopausal bleeding and was noted to have tissue inside the lining of the uterus that was not very thick, but we have been unable to further evaluate that tissue with endometrial biopsy due to cervical stenosis. The patient also has had this ovarian cyst of which we are concerned as to its nature. There was a slightly elevated ____ level for which the patient was seen by gynecology/oncology and had been instructed to just follow. The patient was n.p.o. from midnight the night before. She has been consented for and accepted the risks procedures of D and C, hysteroscopy. DESCRIPTION OF PROCEDURE: On the day of surgery, the patient was taken to the operating room, where MAC anesthetic was administered. Once found to be adequate, she was placed in dorsal lithotomy position via the Sky stirrups, prepped and draped in normal sterile fashion. Weighted speculum to the vagina, bladder had been emptied of the urine with a straight cath. Anterior lip of the cervix was grasped and elevated. Uterus was injected with 10 mL of 1% lidocaine to all 4 quadrants and the patient tolerated it well. The smaller dilators were used to eventually accomplish dilation of the cervical os to allow us down that revealed the uterus to be about 8 cm in AP length. The cervical os was further easily dilated to accommodate a 3 mm hysteroscope, which was placed into the endometrial cavity and there was ____ lot of tissue noted, the lining appeared to be mostly atrophic. The hysteroscope was removed followed by sharp curettage of the entire endometrial cavity. This was sent away for pathological evaluation. The hysteroscope placed into the endometrial cavity once again and notation of all tissue being removed was noted. All instruments were removed from the vagina. Sponge, instrument, and needle counts were correct x2. The patient awakened in stable condition, to be discharged home and to follow up in 1-2 weeks' time. Nurys Rosa MD T: NTS JOB: [id number] 09/04/15 1347 <Electronically signed by Nurys Rosa MD> Date Nurys Rosa MD Cosigner Signature (If Indicated): Date CC: Nurys Rosa MD; Yoanna Tejada DO Date Dictated: 08/30/15 1241 Date Transcribed: 08/30/15 124 Aviation Electronic Warfare Operator: Signed Hortencia Flores Start: 08-28-2015 End: 08-28-2015 Discharge Instruction Comments: See Note; NOTES: [facility] Medical Records Department [address] [place] [address] Instructions for Home/Discharge Instructions 08/28/15 1501 MR#: [id number] Acct: [id number] Name: YASSINE RUIZ Rep #: [id number] : 1960 55 From: Nurys Rosa MD PCP: Yoanna Tejada DO Status: [facility] [place] Diet: No Restrictions Discharge Activity: Return to Normal Activity, May Shower, May Take a Tub Bath - in 2 weeks. May shower in (days): 0 - TODAY May resume sexual activity in: 1-2 weeks Call your doctor if you observe: Fever of 101 or Higher, Inability to urinate, Inability to have a bowel movement, Using more than one pad per hour Allergies/Adverse Reactions: Allergies No Known Allergies Allergy (Verified 08/18/15 08:39) Medications to take at Discharge Amitriptyline HCl 50 mg PO QHS 08/18/15 Atenolol [Tenormin] 25 mg PO DAILY 08/18/15 Calcium Carbonate [Calcium] 600 mg PO BID 08/18/15 Cholecalciferol (VIT D3) [Vitamin D] 2,000 unit PO DAILY 08/18/15 Escitalopram Oxalate [Lexapro] 20 mg PO QHS 08/18/15 Multivits,Ca,Minerals/Iron/F A [Women's Daily Formula Caplet] 1 each PO DAILY 08/18/15 Remifemin 1 tab PO BID 08/18/15 Spironolactone [Aldactone] 100 mg PO DAILY 08/18/15 Water Pill 2 tab PO DAILY 08/18/15 Please Follow Up With: Nurys Rosa When: 1-2 weeks postop 08/28/15 1502 <Electronically signed by Nurys Rosa MD> Date Nurys Rosa MD CC: Yoanna Tejada DO Hortencia Flores Start: 08-28-2015 End: 08-28-2015 Operative Report Comments: See Note; NOTES: [facility] Medical Records Department [address] [place] [address] Operative Report 08/28/15 1459 MR#: [id number] Acct: [id number] Name: YASSINE RUIZ Rep #: [id number] : 1960 55 From: Nurys Rosa MD PCP: Yoanna Tejada DO Status: [facility] [place] Location: [place] [address] Operative Report (Blank) Date of Procedure: 08/28/15 Preop: Postmenopausal bleeding and stenotic cervical os Postop: Same Procedure: D and C, hysteroscopy Surgeon: Moe EBL: minimal Fluids: Lactated ringers Meds: Mefoxin 2 grams IV preop and 10cc of 1% Lidocaine placed to cervix locally Anesthesia: MAC Urine: 25cc clear urine straight cath 08/28/15 1501 <Electronically signed by Nurys Rosa MD> Date Nurys Rosa MD CC: Nurys Rosa MD; Yoanna Tejada DO Signed Hortencia Flores Start: 06-16-2015 End: 06-22-2015 Transvaginal Non- Comments: See Note; NOTES: [facility] Imaging Services [address] [place] [address] Verdana 4d Transvaginal Non- MR#: [id number] Acct: [id number] Name: YASSINE RUIZ Rep #: [id number] : 1960 F 55 From: Logan Russell MD PCP: Yoanna Tejada DO Status: REG CLI Study: Transvaginal Non- Date of Exam: 06/16/15 Exam# [id number] Ordering Dr: Yoanna Tejada DO STUDY: ULTRASOUND OF THE FEMALE PELVIS - COMPLETE REASON FOR EXAM: Female, 55 years old. Postmenopausal bleeding. History of endometriosis. LMP: The patient is postmenopausal. TECHNIQUE: Transabdominal and Transvaginal TECHNICAL QUALITY: Adequate. COMPARISON: None. FINDINGS: The uterus is anteverted and is in a midline position. The uterus measures 6.5 cm x 4.0 cm x 3.1 cm. Normal uterine cervix. The endometrium measures 4.0 mm in thickness, and is hyperechoic. There is no demonstrated endometrial mass. 2 small fibroids are seen. The larger measures 1.6 cm x 1.4 cm x 1.7 cm. I.U.D. - The patient does not have an I.U.D. The right ovary is visualized. The right ovary measures 1.8 cm x 1.8 cm x 0.8 cm. There is no right ovarian cyst or ovarian mass. There is no visualized right adnexal mass or complex lesion. There is normal arterial and normal venous vascularity. The left ovary is visualized. The left ovary measures 3.4 cm x 1.8 cm x 1.7 cm. There is a 2.7 cm x 1.0 cm x 1.2 cm cyst in the left ovary. There is no visualized left adnexal mass or complex lesion. There is normal arterial and normal venous vascularity. There is no fluid in the cul-de-sac. IMPRESSION: There is a 2.7 cm x 1.0 cm x 1.2 cm left ovarian cyst. Electronically Signed: Logan Rsusell MD at 15:26 EST Tel [phone], Service support [phone], CC: Yoanna Tejada DO Aviation Electronic Warfare Operator: Signed Yoanna Tejada Work Phone: Start: 06-16-2015 End: 06-21-2015 Abdomen/Pelvis without Cont Comments: See Note; NOTES: [facility] Imaging Services [address] [place] [address] Verdana 4d Abdomen/Pelvis without Cont MR#: [id number] Acct: [id number] Name: YASSINE RUIZ Rep #: [id number] : 1960 F 55 From: Logan Russell MD PCP: Yoanna Tejada DO Status: REG CLI Study: Abdomen/Pelvis without Cont Date of Exam: 06/16/15 Exam# [id number] Ordering Dr: Yoanna Tejada DO STUDY: CT ABDOMEN AND PELVIS WITHOUT CONTRAST REASON FOR EXAM: Female, 55 years old. 2 week history of right upper quadrant pain. RADIATION DOSAGE (If Supplied By Facility): CTDIvol = ( 15.72 ) mGy, DLP = ( 780.99 ) mGycm TECHNIQUE: Transaxial images were obtained from the dome of the diaphragm to the symphysis pubis without oral contrast, and without intravenous contrast. Sagittal and coronal images were reconstructed. COMPARISON: None. FINDINGS: The visualized lung bases are unremarkable. The visualized portions of the heart are within normal limits. Normal liver. Normal gallbladder and extrahepatic biliary system. Normal spleen. Normal pancreas. Normal bilateral adrenal glands. Normal right kidney. Normal left kidney. Normal visualized stomach. Normal small intestine. Normal colon. The appendix is visualized and appears normal. Normal abdominal aorta. Normal inferior vena cava. There is borderline retroperitoneal lymphadenopathy with enlarged nodes no greater than 10mm in the short axis diameter. Normal urinary bladder. There is a small umbilical hernia containing fat. There are diffuse degenerative changes of the visualized lumbar spine. IMPRESSION: No acute abnormality is seen. Electronically Signed: Logan Russell MD at 14:00 EST Tel [phone], Service support [phone], CC: Yoanna Tejada DO Aviation Electronic Warfare Operator: Signed Yoanna Tejada Work Phone: Start: 06-16-2015 End: 06-22-2015 Pelvic (Non ) Comments: See Note; NOTES: [facility] Imaging Services [address] [place] [address] Verdana 4d Pelvic (Non ) MR#: [id number] Acct: [id number] Name: YASSINE RUIZ Rep #: [id number] : 1960 F 55 From: Logan Russell MD PCP: Yoanna Tejada DO Status: REG CLI Study: Pelvic (Non ) Date of Exam: 06/16/15 Exam# [id number] Ordering Dr: Yoanna Tejada DO STUDY: ULTRASOUND OF THE FEMALE PELVIS - COMPLETE REASON FOR EXAM: Female, 55 years old. Postmenopausal bleeding. History of endometriosis. LMP: The patient is postmenopausal. TECHNIQUE: Transabdominal and Transvaginal TECHNICAL QUALITY: Adequate. COMPARISON: None. FINDINGS: The uterus is anteverted and is in a midline position. The uterus measures 6.5 cm x 4.0 cm x 3.1 cm. Normal uterine cervix. The endometrium measures 4.0 mm in thickness, and is hyperechoic. There is no demonstrated endometrial mass. 2 small fibroids are seen. The larger measures 1.6 cm x 1.4 cm x 1.7 cm. I.U.D. - The patient does not have an I.U.D. The right ovary is visualized. The right ovary measures 1.8 cm x 1.8 cm x 0.8 cm. There is no right ovarian cyst or ovarian mass. There is no visualized right adnexal mass or complex lesion. There is normal arterial and normal venous vascularity. The left ovary is visualized. The left ovary measures 3.4 cm x 1.8 cm x 1.7 cm. There is a 2.7 cm x 1.0 cm x 1.2 cm cyst in the left ovary. There is no visualized left adnexal mass or complex lesion. There is normal arterial and normal venous vascularity. There is no fluid in the cul-de-sac. IMPRESSION: There is a 2.7 cm x 1.0 cm x 1.2 cm left ovarian cyst. Electronically Signed: Logan Russell MD at 15:26 EST Tel [phone], Service support [phone], CC: Yoanna Tejada DO Aviation Electronic Warfare Operator: Signed Yoanna Tejada Work Phone: Start: 09-16-2014 End: 09-16-2014 Lilian Roldan Digital AND CAD Comments: See Note; NOTES: [facility] Imaging Services [address] [place] [address] Breast Imaging Report MR#: [id number] Acct: [id number] Name: YASSINE RUIZ Rep #: [id number] : 1960 F 54 From: Logan Russell MD PCP: Yoanna Tejada DO Status: REG CLI Study: Bilat Scrn Digital AND CAD Date of Exam: 09/16/14 Exam# [id number] Ordering Dr: Yoanna Tejada DO MAMMOGRAPHY - BILATERAL SCREENING REASON FOR EXAM: Female, 54 years old. Routine annual screening examination. PERTINENT HISTORY: Grandmother with breast cancer. Prior left stereotactic biopsy. TECHNIQUE: Digital examination. Mediolateral oblique (MLO) and craniocaudad (CC) views of both breasts were obtained. CAD: CAD was performed on this study. COMPARISON: Comparison is made with prior study dated July 06, 2013 and June 12, 2011. FINDINGS: Breast Composition: The breasts are heterogeneously dense, which may obscure small masses. There are no dominant masses or suspicious calcifications. No other significant abnormalities are identified. There has been no significant change since the prior study. IMPRESSION: Stable bilateral screening mammogram. Yearly follow-up recommended. (A) ASSESSMENT CATEGORY: BIRADS Category 2: Benign. A letter regarding these results will be sent to the patient by the facility within 30 days. Approximately 10% of breast cancers are not detected by mammography. A normal mammogram should not delay biopsy of a clinically suspicious abnormality. Electronically Signed: Logan Russell MD at 13:38 EDT Tel [phone], Service support [phone], CC: Yoanna Tejada DO [employer] Electronic Warfare Operator: Signed Yoanna Tejada Work Phone: Start: 09-12-2014 End: 09-12-2014 Screening mammography Anna Monzon Start: 07-06-2013 End: 07-06-2013 Bilat Scrn Digital & CAD Comments: See Note; NOTES: [facility] Imaging Services [address] [place] [address] Breast Imaging Report MR#: [id number] Acct: [id number] Name: YASSINE RUIZ Rep #: [id number] : 1960 F 53 From: Logan Russell MD PCP: Yoanna Tejada DO Status: REG CLI Exam# [id number] Ordering Dr: Yoanna Tejada DO MAMMOGRAPHY - BILATERAL SCREENING REASON FOR EXAM: Female, 53 years old. Routine annual screening examination. PERTINENT HISTORY: Grandmother with breast cancer. Prior left stereotactic biopsy. TECHNIQUE: Digital examination. Mediolateral oblique (MLO) and craniocaudad (CC) views of both breasts were obtained. CAD: CAD was performed on this study. COMPARISON: Comparison is made with prior study dated June 12, 2011 and March 19, 2010. FINDINGS: The breast composition is heterogeneously dense - ranging from 51% to 75% of the breast tissue. There are no dominant masses or suspicious calcifications. No other significant abnormalities are identified. There has been no significant change since the prior study. IMPRESSION: Stable bilateral screening mammogram. Yearly follow-up recommended. (A) ASSESSMENT CATEGORY: BIRADS Category 2: Benign finding(s). A letter regarding these results will be sent to the patient by the facility within 30 days. Approximately 10% of breast cancers are not detected by mammography. A normal mammogram should not delay biopsy of a clinically suspicious abnormality. Electronically Signed: Logan Russell M.D. at 9:09 EDT , Service support [phone], CC: Yoanna Tejada DO Aviation Electronic Warfare Operator: Signed Yoanna Tejada Work Phone: Start: 07-06-2013 End: 07-06-2013 Dexa Bone Density Study (HP) Comments: See Note; NOTES: [facility] Imaging Services [address] [place] [id number] Bone Density Report MR#: [id number] Acct: [id number] Name: YASSINE RUIZ Rep #: [id number] : [id number] F [id number] From: Logan Russell MD PCP: Yoanna Tejada DO Status: [facility] CLI Study: Dexa Bone Density Study (HP) Date of Exam: 07/06/13 Exam# [id number] Ordering Dr: Yoanna Tejada DO STUDY: DUAL ENERGY X-RAY ABSORPTIOMETRY / DXA REASON FOR EXAM: Female, 53 years old. The patient is postmenopausal. TECHNIQUE: Bone Mineral Density (BMD) measurements of lumbar spine and bilateral hips were obtained. COMPARISON: None. FINDINGS: Lumbar Spine (L1-L4): g/cm2 (1.309) / T-score (1.1) / Z-score (1.7) Findings are suggestive of normal bone density with a low fracture risk. Left Femur Total: g/cm2 (1.001) / T-score (-0.1) / Z-score (0.5) Left Femoral Neck: g/cm2 (0.828) / T-score (-1.5) / Z-score (-0.6) Right Femur Total: g/cm2 (0.971) / T-score (-0.3) / Z-score (0.3) Right Femoral Neck: g/cm2 (0.805) / T-score (-1.7) / Z-score (-0.8) IMPRESSION: The patient is considered osteopenic level of the femoral necks as outlined below according to World Marcos Organization (WHO) criteria with a moderate fracture risk. Reference Information: The T-score is the number of standard deviations above or below the standard which is normal for young adults at their peak bone mineral density. The World Health Organization (WHO) interprets the T-scores as follows: Above -1 Normal bone density Between -1 and -2.5 Osteopenia Equal to / or below -2.5 Osteoporosis As a practical clinical guideline, osteopenia may be graded as follows: Mild -1 through -1.5 Moderate -1.6 through -2.0 Severe -2.1 through -2.4 The Z-score is the number of standard deviations above or below age-matched controls. A Z-score of less than -1.5 would be considered abnormal. References: 1. NIH Osteoporosis and Related Bone Diseases http://www.osteo.org 2. International Society for Clinical Densitometry http://www.iscd.org 3. National Osteoporosis Foundation http://www.nof.org Electronically Signed: Logan Russell M.D. at 12:41 EDT , Service support [phone], CC: Yoanna Tejada DO [employer] Electronic Warfare Operator: Signed Yoanna Tejada Work Phone: Start: 06-12-2013 End: 06-12-2013 Bone density scan Anna Na Dilation and curetta ge of uterus Anna Na Dilation and curetta ge of uterus Blue Joe Dilation and curetta ge of uterus Blue Babb Dilation and curetta ge of uterus Blue Babb Dilation and curetta ge of uterus Blue Babb Dilation and curetta ge of uterus Chantal Funez Dilation and curetta ge of uterus Blue Babb PROSTHETICS ASSISTANT Dilation and curetta ge of uterus Blue Skinny PROSTHETICS ASSISTANT Dilation and curetta ge of uterus Lakisha Slarb PROSTHETICS ASSISTANT Dilation and curetta ge of uterus Carmella Ron [employer] Dilation and curetta ge of uterus Lakisha Slarb PROSTHETICS ASSISTANT H/O: surgery Status post unil ateral salpingo-oophorectomy Chantal Funez LPN Comment on above: removed, left ovary and fallo pian tube, No period in 5years End: 08-05-2018 H/O: surgery Tonsillectomy Blue Babb LPN H/O: surgery Status post unil ateral salpingo-oophorectomy Blue Babb LPN Comment on above: removed, left ovary and fallo pian tube, No period in 5years H/O: surgery Status post unil ateral salpingo-oophorectomy Blue Babb LPN Comment on above: removed, left ovary and fallo pian tube, No period in 5years H/O: surgery Status post unil ateral salpingo-oophorectomy Hortencia Flores Work Phone: H/O: surgery Status post unil ateral salpingo-oophorectomy Lakisha Slarb PROSTHETICS ASSISTANT Comment on above: removed, left ovary and fallo pian tube, No period in 5years H/O: surgery Status post unil ateral salpingo-oophorectomy Carmella Ron [employer] WORK[employer] Comment on above: removed, left ovary and fallo pian tube, No period in 5years H/O: surgery Lakisha Slarb LP N Laparoscopy w/rmvl adnexal structures Anna Na Comment on above: Date: 10/23/2015. Done By:Dr. Rosa Laparoscopy w/rmvl adnexal structures Blue Joe Comment on above: Date: 10/23/2015. Done By:Dr. Rosa Laparoscopy w/rmvl adnexal structures Blue Babb Comment on above: Date: 10/23/2015. Done By:Dr. Rosa Laparoscopy w/rmvl adnexal structures Blue Babb Comment on above: Date: 10/23/2015. Done By:Dr. Rosa Laparoscopy w/rmvl adnexal structures Blue Babb Comment on above: Date: 10/23/2015. Done By:Dr. Rosa Laparoscopy w/rmvl adnexal structures Chantal Armin Comment on above: Date: 10/23/2015. Done By:Dr. Rosa Laparoscopy w/rmvl adnexal structures Blue Babb LPN Comment on above: Date: 10/23/2015. Done By:Dr. Rosa Date: 10/23/2015. Laparoscopy w/rmvl adnexal structures Blue Babb PROSTHETICS ASSISTANT Comment on above: Date: 10/23/2015. Done By:Dr. Rosa Date: 10/23/2015. Laparoscopy w/rmvl adnexal structures Lakisha Slarb PROSTHETICS ASSISTANT Comment on above: Date: 10/23/2015. Done By:Dr. Rosa Date: 10/23/2015. Laparoscopy w/rmvl adnexal structures Carmella Ron [facility] Comment on above: Date: 10/23/2015. Done By:Dr. Rosa Date: 10/23/2015. Laparoscopy w/rmvl adnexal structures Lakisha Slarb PROSTHETICS ASSISTANT Salpingo-oophorectom y compl/prtl uni/bi spx Anna Monzon Comment on above: Date: 10/23/2015. Salpingo-oophorectom y compl/prtl uni/bi spx Blue Joe Comment on above: Date: 10/23/2015. Salpingo-oophorectom y compl/prtl uni/bi spx Blue Babb Comment on above: Date: 10/23/2015. Salpingo-oophorectom y compl/prtl uni/bi spx Blue Babb Comment on above: Date: 10/23/2015. Salpingo-oophorectom y compl/prtl uni/bi spx Blue Babb Comment on above: Date: 10/23/2015. Salpingo-oophorectom y compl/prtl uni/bi spx Chantal Funez Comment on above: Date: 10/23/2015. Plan of Treatment Date Care Activity Detail Author Start: 02-07-2023 Comprehensive metabo lic [facility] Work Phone: Start: 01-02-2023 Provider Instruction s for Treatment [facility]; [facility] Work Phone: Start: 01-01-2023 Procedure Education [facility]; [facility] Work Phone: Start: 01-01-2023 Urinalysis qual/semiquant except immunoassays [facility]; [facility] Work Phone: Start: 01-01-2023 Lipid panel [facility] Work Phone: Start: 01-01-2023 Comprehensive metabo lic panel [facility]; [facility] Work Phone: Start: 01-01-2023 Blood count complete auto&auto difrntl wbc [facility]; [facility] Work Phone: Start: 01-01-2023 Assay of thyroid stimulating hormone tsh [facility]; [facility] Work Phone: Start: 01-01-2023 25 hydroxy includes fractions if performed [facility]; [facility] Work Phone: Start: 06-18-2022 Procedure Education [facility]; [facility] Work Phone: Start: 06-18-2022 Provider Instruction s for Treatment [facility]; [facility] Work Phone: Start: 03-12-2022 Blood count complete auto&auto difrntl wbc [facility]; [facility] Work Phone: Start: 03-12-2022 Comprehensive metabo lic panel [facility]; [facility] Work Phone: Start: 03-12-2022 Procedure Education [facility]; [facility] Work Phone: Start: 03-12-2022 Provider Instruction s for Treatment [facility]; [facility] Work Phone: Start: 09-01-2020 Procedure Education [facility]; [facility] Work Phone: Start: 09-01-2020 Comprehensive metabo lic panel [facility]; [facility] Work Phone: Start: 09-01-2020 Lipid panel [facility] Work Phone: Start: 08-21-2020 Procedure Education [facility]; [facility] Work Phone: Start: 08-21-2020 Provider Instruction s for Treatment [facility]; [facility] Work Phone: Start: 07-07-2020 Procedure Education [facility]; [facility] Work Phone: Start: 07-07-2020 Provider Instruction s for Treatment [facility]; [facility] Work Phone: Start: 06-26-2020 Procedure Education [facility]; [facility] Work Phone: Start: 06-26-2020 Provider Instruction s for Treatment [facility]; [facility] Work Phone: Start: 04-18-2020 Procedure Education [facility]; [facility] Work Phone: Start: 04-18-2020 Provider Instruction s for Treatment [facility]; [facility] Work Phone: Start: 04-18-2020 Urine albumin quantitative [facility]; [facility] Work Phone: Comment on above: Apr 19 Start: 04-18-2020 Assay of thyroid stimulating hormone tsh [facility]; [facility] Work Phone: Comment on above: Apr 19 Start: 04-18-2020 TSH Qn TSH (16667) [facility]; [facility] Work Phone: Comment on above: Apr 19 Start: 04-18-2020 Blood count complete auto&auto difrntl wbc [facility]; [facility] Work Phone: Comment on above: Apr 19 Start: 04-18-2020 Comprehensive metabo lic panel [facility]; [facility] Work Phone: Comment on above: apr 19 Start: 04-18-2020 Lipid panel [facility]; [facility] Work Phone: Comment on above: apr 19 Start: 04-11-2020 Procedure Education [facility]; [facility] Work Phone: Start: 04-11-2020 Provider Instruction s for Treatment [facility]; [facility] Work Phone: Start: 08-05-2018 Procedure Education [facility] Work Phone: Start: 08-05-2018 Provider Instruction s for Treatment [facility] Work Phone: Start: 05-18-2018 Comprehensive metabo lic panel [facility] Work Phone: Start: 12-01-2017 Procedure Education [facility] Work Phone: Start: 12-01-2017 Provider Instruction s for Treatment [facility] Work Phone: Start: 09-26-2017 Procedure Education [facility] Work Phone: Start: 09-26-2017 Provider Instruction s for Treatment [facility] Work Phone: Start: 06-06-2017 Procedure Education [facility] Work Phone: Start: 06-06-2017 Provider Instruction s for Treatment [facility] Work Phone: Start: 02-14-2017 Procedure Education [facility] Work Phone: Start: 02-14-2017 Provider Instruction s for Treatment [facility] Work Phone: Start: 02-14-2017 Lipid panel [facility] Work Phone: Comment on above: May 2017 Start: 02-14-2017 Comprehensive metabo lic panel [facility] Work Phone: Comment on above: May 2017 Start: 02-14-2017 25 hydroxy includes fractions if performed [facility] Work Phone: Comment on above: May 2017 Start: 01-28-2017 Calcium mass conc CALCIUM SERU M (96938) [facility] Work Phone: Start: 01-28-2017 Calcium total [facility]; [facility] Work Phone: Start: 01-24-2017 Procedure Education [facility] Work Phone: Start: 01-24-2017 Provider Instruction s for Treatment [facility] Work Phone: Start: 04-26-2016 Provider Instruction s for Treatment [facility] Work Phone: Start: 03-15-2016 Procedure Education [facility] Work Phone: Start: 03-15-2016 Provider Instruction s for Treatment [facility] Work Phone: Start: 03-01-2016 Provider Instruction s for Treatment [facility] Work Phone: Start: 11-24-2015 Procedure Education [facility] Work Phone: Start: 10-06-2015 Procedure Education [facility] Work Phone: Start: 10-06-2015 Comprehensive metabo lic panel [facility] Work Phone: Start: 10-06-2015 Blood count complete auto&auto difrntl wbc [facility] Work Phone: Start: 10-06-2015 Prothrombin time [facility]; [facility] Work Phone: Start: 10-06-2015 Prothrombin time (PT ) Coag time (PPP) PT (PROTHROMBIN TIME) (56769) [facility] Work Phone: Start: 10-06-2015 Urnls dip stick/tabl et rgnt non-auto w/o micrscp [facility] Work Phone: Start: 06-07-2015 Patient Education [facility] Work Phone: Start: 06-07-2015 Procedure Education [facility] Work Phone: Start: 05-15-2015 Patient Education [facility] Work Phone: Start: 05-15-2015 Provider Instruction s for Treatment [facility] Work Phone: Start: 07-27-2014 Procedure Education [facility] Work Phone: Start: 07-27-2014 Lipid panel [facility] Work Phone: Start: 07-27-2014 Assay of thyroid stimulating hormone tsh [facility]; [facility] Work Phone: Start: 07-27-2014 Thyrotropin Qn TSH (55796) [facility] Work Phone: Start: 07-27-2014 Blood count complete auto&auto difrntl wbc [facility] Work Phone: Start: 07-27-2014 Comprehensive metabo lic panel [facility] Work Phone: Start: 07-27-2014 25 hydroxy includes fractions if performed [facility] Work Phone: Start: 08-13-2013 Assay of phosphorus inorganic [facility]; [facility] Work Phone: Start: 08-13-2013 Phosphate mass conc Phosphorus (8410 0) [facility] Work Phone: Start: 08-13-2013 25 hydroxy includes fractions if performed [facility] Work Phone: Start: 06-11-2013 Provider Instruction s for Treatment [facility] Work Phone: Start: 06-11-2013 Hpv, dna, amp probe [facility] Work Phone: Start: 06-11-2013 Lipid panel [facility] Work Phone: Start: 06-11-2013 Assay of thyroid stimulating hormone tsh [facility]; [facility] Work Phone: Start: 06-11-2013 Thyrotropin Qn TSH (73029) [facility] Work Phone: Start: 06-11-2013 Assay of phosphorus inorganic [facility]; [facility] Work Phone: Start: 06-11-2013 Phosphate mass conc Phosphorus (8410 0) [facility] Work Phone: Start: 06-11-2013 25 hydroxy includes fractions if performed [facility] Work Phone: Start: 06-11-2013 Urnls dip stick/tabl et reagent auto microscopy [facility] Work Phone: Start: 06-11-2013 Urine albumin quantitative [facility] Work Phone: Start: 06-11-2013 Blood count manual c ell count each [facility] Work Phone: Start: 06-11-2013 Comprehensive metabo lic panel [facility] Work Phone: Start: 06-11-2013 Cytp cerv/vag auto t hin layer prep mnl screen [facility] Work Phone: Start: 05-20-2012 Patient Education [facility] Work Phone: Start: 01-31-2012 Assay of parathormone [facility] Work Phone: Start: 01-31-2012 Assay of phosphorus inorganic [facility]; [facility] Work Phone: Start: 01-31-2012 Phosphate mass conc PHOSPHORUS (8410 0) [facility] Work Phone: Start: 01-31-2012 Lipid panel [facility] Work Phone: Start: 01-31-2012 Urnls dip stick/tabl et reagent auto microscopy [facility] Work Phone: Start: 01-31-2012 Blood count manual c ell count each [facility] Work Phone: Start: 01-31-2012 Comprehensive metabo lic panel [facility] Work Phone: Start: 01-31-2012 25 hydroxy includes fractions if performed [facility] Work Phone: Start: 01-31-2012 Immunoassay tumor antigen quantitative ca 125 [facility] Work Phone: Start: 01-31-2012 Patient Education [facility] Work Phone: Start: 01-14-2012 Patient Education [facility] Work Phone: Start: 01-14-2012 Provider Instruction s for Treatment [facility] Work Phone: Start: 01-14-2012 Assay of parathormone [facility] Work Phone: Start: 01-14-2012 Assay of phosphorus inorganic [facility]; [facility] Work Phone: Start: 01-14-2012 Phosphate mass conc PHOSPHORUS (8410 0) [facility] Work Phone: Start: 01-14-2012 25 hydroxy includes fractions if performed [facility] Work Phone: Start: 01-14-2012 Urine albumin quantitative [facility] Work Phone: Start: 01-14-2012 Urnls dip stick/tabl et reagent auto microscopy [facility] Work Phone: Start: 01-14-2012 Lipid panel [facility] Work Phone: Start: 01-14-2012 Blood count manual c ell count each [facility] Work Phone: Start: 01-14-2012 Comprehensive metabo lic panel [facility] Work Phone: Start: 01-14-2012 Cytp cerv/vag auto t hin layer prep mnl screen [facility] Work Phone: Start: 03-20-2011 Provider Instruction s for Treatment [facility] Work Phone: Start: 08-24-2010 25 hydroxy includes fractions if performed [facility] Work Phone: Start: 08-24-2010 Lipid panel [facility] Work Phone: Start: 08-24-2010 Comprehensive metabo lic panel [facility] Work Phone: Start: 06-11-2010 Provider Instruction s for Treatment [facility] Work Phone: Start: 03-13-2010 Provider Instruction s for Treatment [facility] Work Phone: Start: 01-31-2010 Blood count manual c ell count each [facility] Work Phone: Start: 01-31-2010 Comprehensive metabo lic panel [facility] Work Phone: Start: 01-31-2010 Assay of thyroid stimulating hormone tsh [facility]; [facility] Work Phone: Start: 01-31-2010 Thyrotropin Qn TSH (55920) [facility] Work Phone: Start: 01-31-2010 25 hydroxy includes fractions if performed [facility] Work Phone: Start: 04-21-2009 Assay of parathormone [facility] Work Phone: Start: 04-21-2009 Assay of phosphorus inorganic [facility]; [facility] Work Phone: Start: 04-21-2009 Phosphate mass conc PHOSPHORUS (8410 0) [facility] Work Phone: Start: 04-21-2009 25 hydroxy includes fractions if performed [facility] Work Phone: Start: 12-16-2008 Lipid panel [facility] Work Phone: Start: 12-16-2008 Urnls dip stick/tabl et rgnt auto w/o microscopy [facility] Work Phone: Start: 12-16-2008 Assay of thyroid stimulating hormone tsh [facility]; [facility] Work Phone: Start: 12-16-2008 Thyrotropin Qn TSH (70552) [facility] Work Phone: Start: 12-16-2008 Comprehensive metabo lic panel [facility] Work Phone: Start: 12-16-2008 Blood count manual c ell count each [facility] Work Phone: Start: 10-28-2008 Provider Instruction s for Treatment [facility] Work Phone: Start: 09-12-2008 Comprehensive metabo lic panel [facility] Work Phone: Start: 08-08-2008 Basic metabolic pane l calcium total [facility] Work Phone: Start: 08-08-2008 C-reactive protein [facility]; [facility] Work Phone: Start: 08-08-2008 Creatine kinase isoenzymes [facility] Work Phone: Start: 08-08-2008 CRP mass conc C-Reactive Pro tein (76711) [facility] Work Phone: Start: 01-18-2008 Urnls dip stick/tabl et rgnt auto w/o microscopy [facility] Work Phone: Start: 01-18-2008 Assay of thyroid stimulating hormone tsh [facility]; [facility] Work Phone: Start: 01-18-2008 Thyrotropin Qn TSH (48239) [facility] Work Phone: Start: 01-18-2008 Comprehensive metabo lic panel [facility] Work Phone: Start: 01-18-2008 Lipid panel [facility] Work Phone: Start: 01-01-2008 Provider Instruction s for Treatment [facility] Work Phone: Start: 10-08-2007 Assay of creatine [facility]; [facility] Work Phone: Start: 10-08-2007 Creatinine mass conc Creatine (37876 ) [facility] Work Phone: Start: 10-08-2007 Potassium molar conc Potassium Serum (83419) [facility] Work Phone: Start: 10-08-2007 Potassium serum plasma/whole blood [facility]; [facility] Work Phone: Start: 06-29-2007 Comprehensive metabo lic panel [facility] Work Phone: Start: 04-08-2007 Provider Instruction s for Treatment [facility] Work Phone: Start: 02-03-2007 Provider Instruction s for Treatment [facility] Work Phone: Start: 01-02-2007 Provider Instruction s for Treatment [facility] Work Phone: MG Breast - bilatera l [facility] Work Phone: [facility] Work [facility]: [facility] Work [facility] Work [facility]: [facility] Work [facility]: [facility] Work [facility]: [facility] Work [facility]: [facility] Work [facility]: [facility] Work [facility]: [facility] Work [facility]: [facility] Work [facility]: [facility]: [facility] Work [facility]: [facility]: [facility] Work Phone: [facility]: [facility] Work [facility]: [facility] Work Phone: [facility] Work [facility]: [facility] Work Phone: [facility] Work Phone: [facility] Work Phone: [facility] Work Phone: [facility] Work [facility] Work Phone[facility] Work Phone: [facility] Work Phone[facility] Work Phone[facility] Work Phone: [facility]; [facility] Work Phone: [facility] Work Phone: Immunizations Immunization Date Immunization Notes Care Provider Patsy rowley 10-28-2008 tetanus toxoid, redu nandini diphtheria toxoid, and acellular pertussis vaccine, adsorbed Hortencia Flores [facility] Work Phone: Comment on above: Lot #[id number] /2010Site-right deltoidDose0.5mlgiven by Ebenezer Lara LPN Payers Date Payer Category Payer Self-pay [id number] 2015 Private Health Insurance [id number] 2010 Private Health Insurance [id number] 1960 Unknown [id number] Unknown Unknown [id number] [id number] [id number] Unknown [id number] [id number] [id number] Unknown [id number] [id number] [id number] Unknown [id number] [id number] [id number] Unknown [id number] [id number] [id number] Unknown [id number] [id number] [id number] Unknown [id number] [id number] [id number] Social History Date Type Detail Facility Alcohol Use Former smoker [facility] Work Phone: Comment on above: rare 2-3 cups coffee qd 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 [facility] Work Phone: Tobacco use: Tobacco use: [facility] Work Phone: Start: 12-12-2020 End: 03-17-2023 Tobacco smoking status MOIS Unknown if ever smoked [facility] Start: 08-10-2018 Occasional [facility] Start: 08-10-2018 None [facility] Start: 08-10-2018 Spouse/ Signif icant Other [facility] Start: 08-10-2018 Vapor [facility] Start: 1960 Sex Assigned At Female W [facility] [place] Start: 08-25-2023 Tobacco smoking status NHIS Smokes tobacco daily (finding) [facility] Clinical Notes Note Date & Type Note Facility Evaluation note No assessment information availa ble [facility] Work Phone: Evaluation note Diagnosis Onset Date Sinus tachycardia acute Essential (primary) hypertension chronic [facility] Work Phone: Evaluation note* Diagnosis Onset Date Resolution Status Shingles acute [facility] Work Phone: Evaluation note* Diagnosis Onset Date Resolution Status Atrophic vaginitis acute Family history of breast cancer chronic Encounter for routine gynecological examination noneactive Fatigue acute Essential (primary) hypertension chronic WILSON (dyspnea on exertion) re solved Sinus tachycardia resolved [facility] Work Phone: Evaluation note* Diagnosis Onset Date Resolution Status Admit Date Essential (primary) hypertension chr onic September 17, 2024 7:58am Sinus tachycardia resolved September 7:58am [facility] Work Phone: Instructions* Name Dates Details Patient Instructions Indication:Smoker Start:07-Jul-2020 Instruction Type:Provider Instructions for Treatment How to Access Health Informa tion Online using Patient Portal and 3rd [employer] Apps Indication:Smoker Start:07-Jul-2020 Instruction Type:Patient Education Patient Instructions Indication:BMI 30.0-30.9,adult Start:26-Jun-2020 Instruction Type:Provider Instructions for Treatment How to Access Health Informa tion Online using Patient Portal and 3rd [employer] Apps Indication:BMI 30.0-30.9,adult Start:26-Jun-2020 Instruction Type:Patient Education Patient Instructions Indication:Smoker Start:18-Apr-2020 Instruction Type:Provider Instructions for Treatment How to Access Health Informa tion Online using Patient Portal and 3rd [employer] Apps Indication:Smoker Start:18-Apr-2020 Instruction Type:Patient Education Patient Instructions Indication:Smoker Start:11-Apr-2020 Instruction Type:Provider Instructions for Treatment How to Access Health Informa tion Online using Patient Portal and [employer]rd [employer] Apps Indication:Smoker Start:11-Apr-2020 Instruction Type:Patient Education How to access health informa tion online Indication:Pre-operative exam (Renamed from Encounter for pre-operative examination) Start:05-Aug-2018 Instruction Type:Patient Education How to access health informa tion online - Detail Indication:Pre-operative exam (Renamed from Encounter for pre-operative examination) Start:05-Aug-2018 Instruction Type:Patient Education Patient Instructions Indication:Pre-operative exam (Renamed from Encounter for pre-operative examination) Start:05-Aug-2018 Instruction Type:Provider Instructions for Treatment How to access health informa tion online Indication:Smoker Start:01-Dec-2017 Instruction Type:Patient Education How to access health informa tion online - Detail Indication:Smoker Start:01-Dec-2017 Instruction Type:Patient Education Patient Instructions Indication:Smoker Start:01-Dec-2017 Instruction Type:Provider Instructions for Treatment How to access health informa tion online Indication:Anxiety Start:26-Sep-2017 Instruction Type:Patient Education How to access health informa tion online - Detail Indication:Anxiety Start:26-Sep-2017 Instruction Type:Patient Education Patient Instructions Indication:Anxiety Start:26-Sep-2017 Instruction Type:Provider Instructions for Treatment How to access health informa tion online Indication:Hyperlipidemia Start:06-Jun-2017 Instruction Type:Patient Education How to access health informa tion online - Detail Indication:Hyperlipidemia Start:06-Jun-2017 Instruction Type:Patient Education Patient Instructions Indication:Body mass index (bmi) 29.0-29.9, adult Start:06-Jun-2017 Instruction Type:Provider Instructions for Treatment How to access health informa tion online Indication:Fatigue Start:14-Feb-2017 Instruction Type:Patient Education How to access health informa tion online - Detail Indication:Fatigue Start:14-Feb-2017 Instruction Type:Patient Education Patient Instructions Indication:Fatigue Start:14-Feb-2017 Instruction Type:Provider Instructions for Treatment How to access health informa tion online Indication:Anxiety Start:24-Jan-2017 Instruction Type:Patient Education How to access health informa tion online - Detail Indication:Anxiety Start:24-Jan-2017 Instruction Type:Patient Education Patient Instructions Indication:Anxiety Start:24-Jan-2017 Instruction Type:Provider Instructions for Treatment How to access health informa tion online Indication:Benign essential hypertension Start:15-Mar-2016 Instruction Type:Patient Education How to access health informa tion online - Detail Indication:Benign essential hypertension Start:15-Mar-2016 Instruction Type:Patient Education Patient Instructions Indication:Benign essential hypertension Start:15-Mar-2016 Instruction Type:Provider Instructions for Treatment Patient Instructions Indication:Osteopenia Start:01-Mar-2016 Instruction Type:Provider Instructions for Treatment How to access health informa tion online Indication:Nonsmoker Start:24-Nov-2015 Instruction Type:Patient Education How to access health informa tion online - Detail Indication:Nonsmoker Start:24-Nov-2015 Instruction Type:Patient Education Patient Instructions Indication:Nonsmoker Start:24-Nov-2015 Instruction Type:Provider Instructions for Treatment How to access health informa tion online Indication:Preop examination Start:06-Oct-2015 Instruction Type:Patient Education How to access health informa tion online - Detail Indication:Preop examination Start:06-Oct-2015 Instruction Type:Patient Education Patient Instructions Indication:Preop examination Start:06-Oct-2015 Instruction Type:Provider Instructions for Treatment How to access health informa tion online Indication:Postmenopausal bleeding Start:07-Jun-2015 Instruction Type:Patient Education How to access health informa tion online - Detail Indication:Postmenopausal bleeding Start:07-Jun-2015 Instruction Type:Patient Education Patient Instructions Indication:Postmenopausal bleeding Start:07-Jun-2015 Instruction Type:Provider Instructions for Treatment Patient Instructions Indication:Benign essential hypertension Start:27-Jul-2014 Instruction Type:Provider Instructions for Treatment Patient Instructions Indication:Osteopenia Start:13-Aug-2013 Instruction Type:Provider Instructions for Treatment Patient Instructions Indication:Well woman exam Start:11-Jun-2013 Instruction Type:Provider Instructions for Treatment Patient Instructions Indication:Benign essential hypertension Start:20-May-2012 Instruction Type:Provider Instructions for Treatment Patient Instructions Indication:Benign essential hypertension Start:31-Jan-2012 Instruction Type:Provider Instructions for Treatment Patient Instructions Indication:Well woman exam Start:14-Jan-2012 Instruction Type:Provider Instructions for Treatment [facility] Work Phone: Instructions* Name Dates Details Patient Instructions Indication:Abdominal pain, lower Start:21-Aug-2020 Instruction Type:Provider Instructions for Treatment How to Access Health Informa tion Online using Patient Portal and 3rd [employer] Apps Indication:Abdominal pain, lower Start:21-Aug-2020 Instruction Type:Patient Education Patient Instructions Indication:Smoker Start:07-Jul-2020 Instruction Type:Provider Instructions for Treatment How to Access Health Informa tion Online using Patient Portal and 3rd [employer] Apps Indication:Smoker Start:07-Jul-2020 Instruction Type:Patient Education Patient Instructions Indication:BMI 30.0-30.9,adult Start:26-Jun-2020 Instruction Type:Provider Instructions for Treatment How to Access Health Informa tion Online using Patient Portal and 3rd [employer] Apps Indication:BMI 30.0-30.9,adult Start:26-Jun-2020 Instruction Type:Patient Education Patient Instructions Indication:Smoker Start:18-Apr-2020 Instruction Type:Provider Instructions for Treatment How to Access Health Informa tion Online using Patient Portal and 3rd [employer] Apps Indication:Smoker Start:18-Apr-2020 Instruction Type:Patient Education Patient Instructions Indication:Smoker Start:11-Apr-2020 Instruction Type:Provider Instructions for Treatment How to Access Health Informa tion Online using Patient Portal and 3rd [employer] Apps Indication:Smoker Start:11-Apr-2020 Instruction Type:Patient Education How to access health informa tion online Indication:Pre-operative exam (Renamed from Encounter for pre-operative examination) Start:05-Aug-2018 Instruction Type:Patient Education How to access health informa tion online - Detail Indication:Pre-operative exam (Renamed from Encounter for pre-operative examination) Start:05-Aug-2018 Instruction Type:Patient Education Patient Instructions Indication:Pre-operative exam (Renamed from Encounter for pre-operative examination) Start:05-Aug-2018 Instruction Type:Provider Instructions for Treatment How to access health informa tion online Indication:Smoker Start:01-Dec-2017 Instruction Type:Patient Education How to access health informa tion online - Detail Indication:Smoker Start:01-Dec-2017 Instruction Type:Patient Education Patient Instructions Indication:Smoker Start:01-Dec-2017 Instruction Type:Provider Instructions for Treatment How to access health informa tion online Indication:Anxiety Start:26-Sep-2017 Instruction Type:Patient Education How to access health informa tion online - Detail Indication:Anxiety Start:26-Sep-2017 Instruction Type:Patient Education Patient Instructions Indication:Anxiety Start:26-Sep-2017 Instruction Type:Provider Instructions for Treatment How to access health informa tion online Indication:Hyperlipidemia Start:06-Jun-2017 Instruction Type:Patient Education How to access health informa tion online - Detail Indication:Hyperlipidemia Start:06-Jun-2017 Instruction Type:Patient Education Patient Instructions Indication:Body mass index (bmi) 29.0-29.9, adult Start:06-Jun-2017 Instruction Type:Provider Instructions for Treatment How to access health informa tion online Indication:Fatigue Start:14-Feb-2017 Instruction Type:Patient Education How to access health informa tion online - Detail Indication:Fatigue Start:14-Feb-2017 Instruction Type:Patient Education Patient Instructions Indication:Fatigue Start:14-Feb-2017 Instruction Type:Provider Instructions for Treatment How to access health informa tion online Indication:Anxiety Start:24-Jan-2017 Instruction Type:Patient Education How to access health informa tion online - Detail Indication:Anxiety Start:24-Jan-2017 Instruction Type:Patient Education Patient Instructions Indication:Anxiety Start:24-Jan-2017 Instruction Type:Provider Instructions for Treatment How to access health informa tion online Indication:Benign essential hypertension Start:15-Mar-2016 Instruction Type:Patient Education How to access health informa tion online - Detail Indication:Benign essential hypertension Start:15-Mar-2016 Instruction Type:Patient Education Patient Instructions Indication:Benign essential hypertension Start:15-Mar-2016 Instruction Type:Provider Instructions for Treatment Patient Instructions Indication:Osteopenia Start:01-Mar-2016 Instruction Type:Provider Instructions for Treatment How to access health informa tion online Indication:Nonsmoker Start:24-Nov-2015 Instruction Type:Patient Education How to access health informa tion online - Detail Indication:Nonsmoker Start:24-Nov-2015 Instruction Type:Patient Education Patient Instructions Indication:Nonsmoker Start:24-Nov-2015 Instruction Type:Provider Instructions for Treatment How to access health informa tion online Indication:Preop examination Start:06-Oct-2015 Instruction Type:Patient Education How to access health informa tion online - Detail Indication:Preop examination Start:06-Oct-2015 Instruction Type:Patient Education Patient Instructions Indication:Preop examination Start:06-Oct-2015 Instruction Type:Provider Instructions for Treatment How to access health informa tion online Indication:Postmenopausal bleeding Start:07-Jun-2015 Instruction Type:Patient Education How to access health informa tion online - Detail Indication:Postmenopausal bleeding Start:07-Jun-2015 Instruction Type:Patient Education Patient Instructions Indication:Postmenopausal bleeding Start:07-Jun-2015 Instruction Type:Provider Instructions for Treatment Patient Instructions Indication:Benign essential hypertension Start:27-Jul-2014 Instruction Type:Provider Instructions for Treatment Patient Instructions Indication:Osteopenia Start:13-Aug-2013 Instruction Type:Provider Instructions for Treatment Patient Instructions Indication:Well woman exam Start:11-Jun-2013 Instruction Type:Provider Instructions for Treatment Patient Instructions Indication:Benign essential hypertension Start:20-May-2012 Instruction Type:Provider Instructions for Treatment Patient Instructions Indication:Benign essential hypertension Start:31-Jan-2012 Instruction Type:Provider Instructions for Treatment Patient Instructions Indication:Well woman exam Start:14-Jan-2012 Instruction Type:Provider Instructions for Treatment [facility] Work Phone: Instructions* Name Dates Details Patient Instructions Indication:Abdominal pain, lower Start:21-Aug-2020 Instruction Type:Provider Instructions for Treatment How to Access Health Informa tion Online using Patient Portal and 3rd [employer] Apps Indication:Abdominal pain, lower Start:21-Aug-2020 Instruction Type:Patient Education Patient Instructions Indication:Smoker Start:07-Jul-2020 Instruction Type:Provider Instructions for Treatment How to Access Health Informa tion Online using Patient Portal and 3rd [employer] Apps Indication:Smoker Start:07-Jul-2020 Instruction Type:Patient Education Patient Instructions Indication:BMI 30.0-30.9,adult Start:26-Jun-2020 Instruction Type:Provider Instructions for Treatment How to Access Health Informa tion Online using Patient Portal and 3rd [employer] Apps Indication:BMI 30.0-30.9,adult Start:26-Jun-2020 Instruction Type:Patient Education Patient Instructions Indication:Smoker Start:18-Apr-2020 Instruction Type:Provider Instructions for Treatment How to Access Health Informa tion Online using Patient Portal and 3rd [employer] Apps Indication:Smoker Start:18-Apr-2020 Instruction Type:Patient Education Patient Instructions Indication:Smoker Start:11-Apr-2020 Instruction Type:Provider Instructions for Treatment How to Access Health Informa tion Online using Patient Portal and [employer]rd [employer] Apps Indication:Smoker Start:11-Apr-2020 Instruction Type:Patient Education How to access health informa tion online Indication:Pre-operative exam (Renamed from Encounter for pre-operative examination) Start:05-Aug-2018 Instruction Type:Patient Education How to access health informa tion online - Detail Indication:Pre-operative exam (Renamed from Encounter for pre-operative examination) Start:05-Aug-2018 Instruction Type:Patient Education Patient Instructions Indication:Pre-operative exam (Renamed from Encounter for pre-operative examination) Start:05-Aug-2018 Instruction Type:Provider Instructions for Treatment How to access health informa tion online Indication:Smoker Start:01-Dec-2017 Instruction Type:Patient Education How to access health informa tion online - Detail Indication:Smoker Start:01-Dec-2017 Instruction Type:Patient Education Patient Instructions Indication:Smoker Start:01-Dec-2017 Instruction Type:Provider Instructions for Treatment How to access health informa tion online Indication:Anxiety Start:26-Sep-2017 Instruction Type:Patient Education How to access health informa tion online - Detail Indication:Anxiety Start:26-Sep-2017 Instruction Type:Patient Education Patient Instructions Indication:Anxiety Start:26-Sep-2017 Instruction Type:Provider Instructions for Treatment How to access health informa tion online Indication:Hyperlipidemia Start:06-Jun-2017 Instruction Type:Patient Education How to access health informa tion online - Detail Indication:Hyperlipidemia Start:06-Jun-2017 Instruction Type:Patient Education Patient Instructions Indication:Body mass index (bmi) 29.0-29.9, adult Start:06-Jun-2017 Instruction Type:Provider Instructions for Treatment How to access health informa tion online Indication:Fatigue Start:14-Feb-2017 Instruction Type:Patient Education How to access health informa tion online - Detail Indication:Fatigue Start:14-Feb-2017 Instruction Type:Patient Education Patient Instructions Indication:Fatigue Start:14-Feb-2017 Instruction Type:Provider Instructions for Treatment How to access health informa tion online Indication:Anxiety Start:24-Jan-2017 Instruction Type:Patient Education How to access health informa tion online - Detail Indication:Anxiety Start:24-Jan-2017 Instruction Type:Patient Education Patient Instructions Indication:Anxiety Start:24-Jan-2017 Instruction Type:Provider Instructions for Treatment How to access health informa tion online Indication:Benign essential hypertension Start:15-Mar-2016 Instruction Type:Patient Education How to access health informa tion online - Detail Indication:Benign essential hypertension Start:15-Mar-2016 Instruction Type:Patient Education Patient Instructions Indication:Benign essential hypertension Start:15-Mar-2016 Instruction Type:Provider Instructions for Treatment Patient Instructions Indication:Osteopenia Start:01-Mar-2016 Instruction Type:Provider Instructions for Treatment How to access health informa tion online Indication:Nonsmoker Start:24-Nov-2015 Instruction Type:Patient Education How to access health informa tion online - Detail Indication:Nonsmoker Start:24-Nov-2015 Instruction Type:Patient Education Patient Instructions Indication:Nonsmoker Start:24-Nov-2015 Instruction Type:Provider Instructions for Treatment How to access health informa tion online Indication:Preop examination Start:06-Oct-2015 Instruction Type:Patient Education How to access health informa tion online - Detail Indication:Preop examination Start:06-Oct-2015 Instruction Type:Patient Education Patient Instructions Indication:Preop examination Start:06-Oct-2015 Instruction Type:Provider Instructions for Treatment How to access health informa tion online Indication:Postmenopausal bleeding Start:07-Jun-2015 Instruction Type:Patient Education How to access health informa tion online - Detail Indication:Postmenopausal bleeding Start:07-Jun-2015 Instruction Type:Patient Education Patient Instructions Indication:Postmenopausal bleeding Start:07-Jun-2015 Instruction Type:Provider Instructions for Treatment Patient Instructions Indication:Benign essential hypertension Start:27-Jul-2014 Instruction Type:Provider Instructions for Treatment Patient Instructions Indication:Osteopenia Start:13-Aug-2013 Instruction Type:Provider Instructions for Treatment Patient Instructions Indication:Well woman exam Start:11-Jun-2013 Instruction Type:Provider Instructions for Treatment Patient Instructions Indication:Benign essential hypertension Start:20-May-2012 Instruction Type:Provider Instructions for Treatment Patient Instructions Indication:Benign essential hypertension Start:31-Jan-2012 Instruction Type:Provider Instructions for Treatment Patient Instructions Indication:Well woman exam Start:14-Jan-2012 Instruction Type:Provider Instructions for Treatment [facility] Work Phone: Instructions* Name Dates Details Patient Instructions Indication:Smoker Start:01-Sep-2020 Instruction Type:Provider Instructions for Treatment How to Access Health Informa tion Online using Patient Portal and [employer]rd [employer] Apps Indication:Smoker Start:01-Sep-2020 Instruction Type:Patient Education Patient Instructions Indication:Abdominal pain, lower Start:21-Aug-2020 Instruction Type:Provider Instructions for Treatment How to Access Health Informa tion Online using Patient Portal and [employer]rd [employer] Apps Indication:Abdominal pain, lower Start:21-Aug-2020 Instruction Type:Patient Education Patient Instructions Indication:Smoker Start:07-Jul-2020 Instruction Type:Provider Instructions for Treatment How to Access Health Informa tion Online using Patient Portal and 3rd [employer] Apps Indication:Smoker Start:07-Jul-2020 Instruction Type:Patient Education Patient Instructions Indication:BMI 30.0-30.9,adult Start:26-Jun-2020 Instruction Type:Provider Instructions for Treatment How to Access Health Informa tion Online using Patient Portal and 3rd [employer] Apps Indication:BMI 30.0-30.9,adult Start:26-Jun-2020 Instruction Type:Patient Education Patient Instructions Indication:Smoker Start:18-Apr-2020 Instruction Type:Provider Instructions for Treatment How to Access Health Informa tion Online using Patient Portal and 3rd [employer] Apps Indication:Smoker Start:18-Apr-2020 Instruction Type:Patient Education Patient Instructions Indication:Smoker Start:11-Apr-2020 Instruction Type:Provider Instructions for Treatment How to Access Health Informa tion Online using Patient Portal and [employer]rd [employer] Apps Indication:Smoker Start:11-Apr-2020 Instruction Type:Patient Education How to access health informa tion online Indication:Pre-operative exam (Renamed from Encounter for pre-operative examination) Start:05-Aug-2018 Instruction Type:Patient Education How to access health informa tion online - Detail Indication:Pre-operative exam (Renamed from Encounter for pre-operative examination) Start:05-Aug-2018 Instruction Type:Patient Education Patient Instructions Indication:Pre-operative exam (Renamed from Encounter for pre-operative examination) Start:05-Aug-2018 Instruction Type:Provider Instructions for Treatment How to access health informa tion online Indication:Smoker Start:01-Dec-2017 Instruction Type:Patient Education How to access health informa tion online - Detail Indication:Smoker Start:01-Dec-2017 Instruction Type:Patient Education Patient Instructions Indication:Smoker Start:01-Dec-2017 Instruction Type:Provider Instructions for Treatment How to access health informa tion online Indication:Anxiety Start:26-Sep-2017 Instruction Type:Patient Education How to access health informa tion online - Detail Indication:Anxiety Start:26-Sep-2017 Instruction Type:Patient Education Patient Instructions Indication:Anxiety Start:26-Sep-2017 Instruction Type:Provider Instructions for Treatment How to access health informa tion online Indication:Hyperlipidemia Start:06-Jun-2017 Instruction Type:Patient Education How to access health informa tion online - Detail Indication:Hyperlipidemia Start:06-Jun-2017 Instruction Type:Patient Education Patient Instructions Indication:Body mass index (bmi) 29.0-29.9, adult Start:06-Jun-2017 Instruction Type:Provider Instructions for Treatment How to access health informa tion online Indication:Fatigue Start:14-Feb-2017 Instruction Type:Patient Education How to access health informa tion online - Detail Indication:Fatigue Start:14-Feb-2017 Instruction Type:Patient Education Patient Instructions Indication:Fatigue Start:14-Feb-2017 Instruction Type:Provider Instructions for Treatment How to access health informa tion online Indication:Anxiety Start:24-Jan-2017 Instruction Type:Patient Education How to access health informa tion online - Detail Indication:Anxiety Start:24-Jan-2017 Instruction Type:Patient Education Patient Instructions Indication:Anxiety Start:24-Jan-2017 Instruction Type:Provider Instructions for Treatment How to access health informa tion online Indication:Benign essential hypertension Start:15-Mar-2016 Instruction Type:Patient Education How to access health informa tion online - Detail Indication:Benign essential hypertension Start:15-Mar-2016 Instruction Type:Patient Education Patient Instructions Indication:Benign essential hypertension Start:15-Mar-2016 Instruction Type:Provider Instructions for Treatment Patient Instructions Indication:Osteopenia Start:01-Mar-2016 Instruction Type:Provider Instructions for Treatment How to access health informa tion online Indication:Nonsmoker Start:24-Nov-2015 Instruction Type:Patient Education How to access health informa tion online - Detail Indication:Nonsmoker Start:24-Nov-2015 Instruction Type:Patient Education Patient Instructions Indication:Nonsmoker Start:24-Nov-2015 Instruction Type:Provider Instructions for Treatment How to access health informa tion online Indication:Preop examination Start:06-Oct-2015 Instruction Type:Patient Education How to access health informa tion online - Detail Indication:Preop examination Start:06-Oct-2015 Instruction Type:Patient Education Patient Instructions Indication:Preop examination Start:06-Oct-2015 Instruction Type:Provider Instructions for Treatment How to access health informa tion online Indication:Postmenopausal bleeding Start:07-Jun-2015 Instruction Type:Patient Education How to access health informa tion online - Detail Indication:Postmenopausal bleeding Start:07-Jun-2015 Instruction Type:Patient Education Patient Instructions Indication:Postmenopausal bleeding Start:07-Jun-2015 Instruction Type:Provider Instructions for Treatment Patient Instructions Indication:Benign essential hypertension Start:27-Jul-2014 Instruction Type:Provider Instructions for Treatment Patient Instructions Indication:Osteopenia Start:13-Aug-2013 Instruction Type:Provider Instructions for Treatment Patient Instructions Indication:Well woman exam Start:11-Jun-2013 Instruction Type:Provider Instructions for Treatment Patient Instructions Indication:Benign essential hypertension Start:20-May-2012 Instruction Type:Provider Instructions for Treatment Patient Instructions Indication:Benign essential hypertension Start:31-Jan-2012 Instruction Type:Provider Instructions for Treatment Patient Instructions Indication:Well woman exam Start:14-Jan-2012 Instruction Type:Provider Instructions for Treatment [facility]; [facility] Work Phone: Instructions* Name Dates Details Patient Instructions Indication:Smoker Start:01-Sep-2020 Instruction Type:Provider Instructions for Treatment How to Access Health Informa tion Online using Patient Portal and [employer]rd [employer] Apps Indication:Smoker Start:01-Sep-2020 Instruction Type:Patient Education Patient Instructions Indication:Abdominal pain, lower Start:21-Aug-2020 Instruction Type:Provider Instructions for Treatment How to Access Health Informa tion Online using Patient Portal and [employer]rd [employer] Apps Indication:Abdominal pain, lower Start:21-Aug-2020 Instruction Type:Patient Education Patient Instructions Indication:Smoker Start:07-Jul-2020 Instruction Type:Provider Instructions for Treatment How to Access Health Informa tion Online using Patient Portal and [employer]rd [employer] Apps Indication:Smoker Start:07-Jul-2020 Instruction Type:Patient Education Patient Instructions Indication:BMI 30.0-30.9,adult Start:26-Jun-2020 Instruction Type:Provider Instructions for Treatment How to Access Health Informa tion Online using Patient Portal and [employer]rd [employer] Apps Indication:BMI 30.0-30.9,adult Start:26-Jun-2020 Instruction Type:Patient Education Patient Instructions Indication:Smoker Start:18-Apr-2020 Instruction Type:Provider Instructions for Treatment How to Access Health Informa tion Online using Patient Portal and [employer]rd [employer] Apps Indication:Smoker Start:18-Apr-2020 Instruction Type:Patient Education Patient Instructions Indication:Smoker Start:11-Apr-2020 Instruction Type:Provider Instructions for Treatment How to Access Health Informa tion Online using Patient Portal and [employer]rd [employer] Apps Indication:Smoker Start:11-Apr-2020 Instruction Type:Patient Education How to access health informa tion online Indication:Pre-operative exam (Renamed from Encounter for pre-operative examination) Start:05-Aug-2018 Instruction Type:Patient Education How to access health informa tion online - Detail Indication:Pre-operative exam (Renamed from Encounter for pre-operative examination) Start:05-Aug-2018 Instruction Type:Patient Education Patient Instructions Indication:Pre-operative exam (Renamed from Encounter for pre-operative examination) Start:05-Aug-2018 Instruction Type:Provider Instructions for Treatment How to access health informa tion online Indication:Smoker Start:01-Dec-2017 Instruction Type:Patient Education How to access health informa tion online - Detail Indication:Smoker Start:01-Dec-2017 Instruction Type:Patient Education Patient Instructions Indication:Smoker Start:01-Dec-2017 Instruction Type:Provider Instructions for Treatment How to access health informa tion online Indication:Anxiety Start:26-Sep-2017 Instruction Type:Patient Education How to access health informa tion online - Detail Indication:Anxiety Start:26-Sep-2017 Instruction Type:Patient Education Patient Instructions Indication:Anxiety Start:26-Sep-2017 Instruction Type:Provider Instructions for Treatment How to access health informa tion online Indication:Hyperlipidemia Start:06-Jun-2017 Instruction Type:Patient Education How to access health informa tion online - Detail Indication:Hyperlipidemia Start:06-Jun-2017 Instruction Type:Patient Education Patient Instructions Indication:Body mass index (bmi) 29.0-29.9, adult Start:06-Jun-2017 Instruction Type:Provider Instructions for Treatment How to access health informa tion online Indication:Fatigue Start:14-Feb-2017 Instruction Type:Patient Education How to access health informa tion online - Detail Indication:Fatigue Start:14-Feb-2017 Instruction Type:Patient Education Patient Instructions Indication:Fatigue Start:14-Feb-2017 Instruction Type:Provider Instructions for Treatment How to access health informa tion online Indication:Anxiety Start:24-Jan-2017 Instruction Type:Patient Education How to access health informa tion online - Detail Indication:Anxiety Start:24-Jan-2017 Instruction Type:Patient Education Patient Instructions Indication:Anxiety Start:24-Jan-2017 Instruction Type:Provider Instructions for Treatment How to access health informa tion online Indication:Benign essential hypertension Start:15-Mar-2016 Instruction Type:Patient Education How to access health informa tion online - Detail Indication:Benign essential hypertension Start:15-Mar-2016 Instruction Type:Patient Education Patient Instructions Indication:Benign essential hypertension Start:15-Mar-2016 Instruction Type:Provider Instructions for Treatment Patient Instructions Indication:Osteopenia Start:01-Mar-2016 Instruction Type:Provider Instructions for Treatment How to access health informa tion online Indication:Nonsmoker Start:24-Nov-2015 Instruction Type:Patient Education How to access health informa tion online - Detail Indication:Nonsmoker Start:24-Nov-2015 Instruction Type:Patient Education Patient Instructions Indication:Nonsmoker Start:24-Nov-2015 Instruction Type:Provider Instructions for Treatment How to access health informa tion online Indication:Preop examination Start:06-Oct-2015 Instruction Type:Patient Education How to access health informa tion online - Detail Indication:Preop examination Start:06-Oct-2015 Instruction Type:Patient Education Patient Instructions Indication:Preop examination Start:06-Oct-2015 Instruction Type:Provider Instructions for Treatment How to access health informa tion online Indication:Postmenopausal bleeding Start:07-Jun-2015 Instruction Type:Patient Education How to access health informa tion online - Detail Indication:Postmenopausal bleeding Start:07-Jun-2015 Instruction Type:Patient Education Patient Instructions Indication:Postmenopausal bleeding Start:07-Jun-2015 Instruction Type:Provider Instructions for Treatment Patient Instructions Indication:Benign essential hypertension Start:27-Jul-2014 Instruction Type:Provider Instructions for Treatment Patient Instructions Indication:Osteopenia Start:13-Aug-2013 Instruction Type:Provider Instructions for Treatment Patient Instructions Indication:Well woman exam Start:11-Jun-2013 Instruction Type:Provider Instructions for Treatment Patient Instructions Indication:Benign essential hypertension Start:20-May-2012 Instruction Type:Provider Instructions for Treatment Patient Instructions Indication:Benign essential hypertension Start:31-Jan-2012 Instruction Type:Provider Instructions for Treatment Patient Instructions Indication:Well woman exam Start:14-Jan-2012 Instruction Type:Provider Instructions for Treatment [facility]; [facility] Work Phone: Instructions* Name Dates Details Patient Instructions Indication:Smoker Start:01-Sep-2020 Instruction Type:Provider Instructions for Treatment How to Access Health Informa tion Online using Patient Portal and [employer] Apps Indication:Smoker Start:01-Sep-2020 Instruction Type:Patient Education Patient Instructions Indication:Abdominal pain, lower Start:21-Aug-2020 Instruction Type:Provider Instructions for Treatment How to Access Health Informa tion Online using Patient Portal and [employer]rd [employer] Apps Indication:Abdominal pain, lower Start:21-Aug-2020 Instruction Type:Patient Education Patient Instructions Indication:Smoker Start:07-Jul-2020 Instruction Type:Provider Instructions for Treatment How to Access Health Informa tion Online using Patient Portal and [employer] Apps Indication:Smoker Start:07-Jul-2020 Instruction Type:Patient Education Patient Instructions Indication:BMI 30.0-30.9,adult Start:26-Jun-2020 Instruction Type:Provider Instructions for Treatment How to Access Health Informa tion Online using Patient Portal and [employer]rd [employer] Apps Indication:BMI 30.0-30.9,adult Start:26-Jun-2020 Instruction Type:Patient Education Patient Instructions Indication:Smoker Start:18-Apr-2020 Instruction Type:Provider Instructions for Treatment How to Access Health Informa tion Online using Patient Portal and [employer]rd [employer] Apps Indication:Smoker Start:18-Apr-2020 Instruction Type:Patient Education Patient Instructions Indication:Smoker Start:11-Apr-2020 Instruction Type:Provider Instructions for Treatment How to Access Health Informa tion Online using Patient Portal and [employer]rd [employer] Apps Indication:Smoker Start:11-Apr-2020 Instruction Type:Patient Education How to access health informa tion online Indication:Pre-operative exam (Renamed from Encounter for pre-operative examination) Start:05-Aug-2018 Instruction Type:Patient Education How to access health informa tion online - Detail Indication:Pre-operative exam (Renamed from Encounter for pre-operative examination) Start:05-Aug-2018 Instruction Type:Patient Education Patient Instructions Indication:Pre-operative exam (Renamed from Encounter for pre-operative examination) Start:05-Aug-2018 Instruction Type:Provider Instructions for Treatment How to access health informa tion online Indication:Smoker Start:01-Dec-2017 Instruction Type:Patient Education How to access health informa tion online - Detail Indication:Smoker Start:01-Dec-2017 Instruction Type:Patient Education Patient Instructions Indication:Smoker Start:01-Dec-2017 Instruction Type:Provider Instructions for Treatment How to access health informa tion online Indication:Anxiety Start:26-Sep-2017 Instruction Type:Patient Education How to access health informa tion online - Detail Indication:Anxiety Start:26-Sep-2017 Instruction Type:Patient Education Patient Instructions Indication:Anxiety Start:26-Sep-2017 Instruction Type:Provider Instructions for Treatment How to access health informa tion online Indication:Hyperlipidemia Start:06-Jun-2017 Instruction Type:Patient Education How to access health informa tion online - Detail Indication:Hyperlipidemia Start:06-Jun-2017 Instruction Type:Patient Education Patient Instructions Indication:Body mass index (bmi) 29.0-29.9, adult Start:06-Jun-2017 Instruction Type:Provider Instructions for Treatment How to access health informa tion online Indication:Fatigue Start:14-Feb-2017 Instruction Type:Patient Education How to access health informa tion online - Detail Indication:Fatigue Start:14-Feb-2017 Instruction Type:Patient Education Patient Instructions Indication:Fatigue Start:14-Feb-2017 Instruction Type:Provider Instructions for Treatment How to access health informa tion online Indication:Anxiety Start:24-Jan-2017 Instruction Type:Patient Education How to access health informa tion online - Detail Indication:Anxiety Start:24-Jan-2017 Instruction Type:Patient Education Patient Instructions Indication:Anxiety Start:24-Jan-2017 Instruction Type:Provider Instructions for Treatment How to access health informa tion online Indication:Benign essential hypertension Start:15-Mar-2016 Instruction Type:Patient Education How to access health informa tion online - Detail Indication:Benign essential hypertension Start:15-Mar-2016 Instruction Type:Patient Education Patient Instructions Indication:Benign essential hypertension Start:15-Mar-2016 Instruction Type:Provider Instructions for Treatment Patient Instructions Indication:Osteopenia Start:01-Mar-2016 Instruction Type:Provider Instructions for Treatment How to access health informa tion online Indication:Nonsmoker Start:24-Nov-2015 Instruction Type:Patient Education How to access health informa tion online - Detail Indication:Nonsmoker Start:24-Nov-2015 Instruction Type:Patient Education Patient Instructions Indication:Nonsmoker Start:24-Nov-2015 Instruction Type:Provider Instructions for Treatment How to access health informa tion online Indication:Preop examination Start:06-Oct-2015 Instruction Type:Patient Education How to access health informa tion online - Detail Indication:Preop examination Start:06-Oct-2015 Instruction Type:Patient Education Patient Instructions Indication:Preop examination Start:06-Oct-2015 Instruction Type:Provider Instructions for Treatment How to access health informa tion online Indication:Postmenopausal bleeding Start:07-Jun-2015 Instruction Type:Patient Education How to access health informa tion online - Detail Indication:Postmenopausal bleeding Start:07-Jun-2015 Instruction Type:Patient Education Patient Instructions Indication:Postmenopausal bleeding Start:07-Jun-2015 Instruction Type:Provider Instructions for Treatment Patient Instructions Indication:Benign essential hypertension Start:27-Jul-2014 Instruction Type:Provider Instructions for Treatment Patient Instructions Indication:Osteopenia Start:13-Aug-2013 Instruction Type:Provider Instructions for Treatment Patient Instructions Indication:Well woman exam Start:11-Jun-2013 Instruction Type:Provider Instructions for Treatment Patient Instructions Indication:Benign essential hypertension Start:20-May-2012 Instruction Type:Provider Instructions for Treatment Patient Instructions Indication:Benign essential hypertension Start:31-Jan-2012 Instruction Type:Provider Instructions for Treatment Patient Instructions Indication:Well woman exam Start:14-Jan-2012 Instruction Type:Provider Instructions for Treatment [facility]; [facility] Work Phone: Instructions* Name Dates Details Patient Instructions Indication:Smoker Start:01-Sep-2020 Instruction Type:Provider Instructions for Treatment How to Access Health Informa tion Online using Patient Portal and [employer] Apps Indication:Smoker Start:01-Sep-2020 Instruction Type:Patient Education Patient Instructions Indication:Abdominal pain, lower Start:21-Aug-2020 Instruction Type:Provider Instructions for Treatment How to Access Health Informa tion Online using Patient Portal and [employer] Apps Indication:Abdominal pain, lower Start:21-Aug-2020 Instruction Type:Patient Education Patient Instructions Indication:Smoker Start:07-Jul-2020 Instruction Type:Provider Instructions for Treatment How to Access Health Informa tion Online using Patient Portal and [employer] Apps Indication:Smoker Start:07-Jul-2020 Instruction Type:Patient Education Patient Instructions Indication:BMI 30.0-30.9,adult Start:26-Jun-2020 Instruction Type:Provider Instructions for Treatment How to Access Health Informa tion Online using Patient Portal and [employer] Apps Indication:BMI 30.0-30.9,adult Start:26-Jun-2020 Instruction Type:Patient Education Patient Instructions Indication:Smoker Start:18-Apr-2020 Instruction Type:Provider Instructions for Treatment How to Access Health Informa tion Online using Patient Portal and [employer] Apps Indication:Smoker Start:18-Apr-2020 Instruction Type:Patient Education Patient Instructions Indication:Smoker Start:11-Apr-2020 Instruction Type:Provider Instructions for Treatment How to Access Health Informa tion Online using Patient Portal and [employer] Apps Indication:Smoker Start:11-Apr-2020 Instruction Type:Patient Education How to access health informa tion online Indication:Pre-operative exam (Renamed from Encounter for pre-operative examination) Start:05-Aug-2018 Instruction Type:Patient Education How to access health informa tion online - Detail Indication:Pre-operative exam (Renamed from Encounter for pre-operative examination) Start:05-Aug-2018 Instruction Type:Patient Education Patient Instructions Indication:Pre-operative exam (Renamed from Encounter for pre-operative examination) Start:05-Aug-2018 Instruction Type:Provider Instructions for Treatment How to access health informa tion online Indication:Smoker Start:01-Dec-2017 Instruction Type:Patient Education How to access health informa tion online - Detail Indication:Smoker Start:01-Dec-2017 Instruction Type:Patient Education Patient Instructions Indication:Smoker Start:01-Dec-2017 Instruction Type:Provider Instructions for Treatment How to access health informa tion online Indication:Anxiety Start:26-Sep-2017 Instruction Type:Patient Education How to access health informa tion online - Detail Indication:Anxiety Start:26-Sep-2017 Instruction Type:Patient Education Patient Instructions Indication:Anxiety Start:26-Sep-2017 Instruction Type:Provider Instructions for Treatment How to access health informa tion online Indication:Hyperlipidemia Start:06-Jun-2017 Instruction Type:Patient Education How to access health informa tion online - Detail Indication:Hyperlipidemia Start:06-Jun-2017 Instruction Type:Patient Education Patient Instructions Indication:Body mass index (bmi) 29.0-29.9, adult Start:06-Jun-2017 Instruction Type:Provider Instructions for Treatment How to access health informa tion online Indication:Fatigue Start:14-Feb-2017 Instruction Type:Patient Education How to access health informa tion online - Detail Indication:Fatigue Start:14-Feb-2017 Instruction Type:Patient Education Patient Instructions Indication:Fatigue Start:14-Feb-2017 Instruction Type:Provider Instructions for Treatment How to access health informa tion online Indication:Anxiety Start:24-Jan-2017 Instruction Type:Patient Education How to access health informa tion online - Detail Indication:Anxiety Start:24-Jan-2017 Instruction Type:Patient Education Patient Instructions Indication:Anxiety Start:24-Jan-2017 Instruction Type:Provider Instructions for Treatment How to access health informa tion online Indication:Benign essential hypertension Start:15-Mar-2016 Instruction Type:Patient Education How to access health informa tion online - Detail Indication:Benign essential hypertension Start:15-Mar-2016 Instruction Type:Patient Education Patient Instructions Indication:Benign essential hypertension Start:15-Mar-2016 Instruction Type:Provider Instructions for Treatment Patient Instructions Indication:Osteopenia Start:01-Mar-2016 Instruction Type:Provider Instructions for Treatment How to access health informa tion online Indication:Nonsmoker Start:24-Nov-2015 Instruction Type:Patient Education How to access health informa tion online - Detail Indication:Nonsmoker Start:24-Nov-2015 Instruction Type:Patient Education Patient Instructions Indication:Nonsmoker Start:24-Nov-2015 Instruction Type:Provider Instructions for Treatment How to access health informa tion online Indication:Preop examination Start:06-Oct-2015 Instruction Type:Patient Education How to access health informa tion online - Detail Indication:Preop examination Start:06-Oct-2015 Instruction Type:Patient Education Patient Instructions Indication:Preop examination Start:06-Oct-2015 Instruction Type:Provider Instructions for Treatment How to access health informa tion online Indication:Postmenopausal bleeding Start:07-Jun-2015 Instruction Type:Patient Education How to access health informa tion online - Detail Indication:Postmenopausal bleeding Start:07-Jun-2015 Instruction Type:Patient Education Patient Instructions Indication:Postmenopausal bleeding Start:07-Jun-2015 Instruction Type:Provider Instructions for Treatment Patient Instructions Indication:Benign essential hypertension Start:27-Jul-2014 Instruction Type:Provider Instructions for Treatment Patient Instructions Indication:Osteopenia Start:13-Aug-2013 Instruction Type:Provider Instructions for Treatment Patient Instructions Indication:Well woman exam Start:11-Jun-2013 Instruction Type:Provider Instructions for Treatment Patient Instructions Indication:Benign essential hypertension Start:20-May-2012 Instruction Type:Provider Instructions for Treatment Patient Instructions Indication:Benign essential hypertension Start:31-Jan-2012 Instruction Type:Provider Instructions for Treatment Patient Instructions Indication:Well woman exam Start:14-Jan-2012 Instruction Type:Provider Instructions for Treatment [facility]; [facility] Work Phone: Instructions* Name Dates Details Patient Instructions Indication:Smoker Start:01-Sep-2020 Instruction Type:Provider Instructions for Treatment How to Access Health Informa tion Online using Patient Portal and [employer] Apps Indication:Smoker Start:01-Sep-2020 Instruction Type:Patient Education Patient Instructions Indication:Abdominal pain, lower Start:21-Aug-2020 Instruction Type:Provider Instructions for Treatment How to Access Health Informa tion Online using Patient Portal and [employer]rd [employer] Apps Indication:Abdominal pain, lower Start:21-Aug-2020 Instruction Type:Patient Education Patient Instructions Indication:Smoker Start:07-Jul-2020 Instruction Type:Provider Instructions for Treatment How to Access Health Informa tion Online using Patient Portal and [employer]rd [employer] Apps Indication:Smoker Start:07-Jul-2020 Instruction Type:Patient Education Patient Instructions Indication:BMI 30.0-30.9,adult Start:26-Jun-2020 Instruction Type:Provider Instructions for Treatment How to Access Health Informa tion Online using Patient Portal and [employer]rd [employer] Apps Indication:BMI 30.0-30.9,adult Start:26-Jun-2020 Instruction Type:Patient Education Patient Instructions Indication:Smoker Start:18-Apr-2020 Instruction Type:Provider Instructions for Treatment How to Access Health Informa tion Online using Patient Portal and [employer]rd [employer] Apps Indication:Smoker Start:18-Apr-2020 Instruction Type:Patient Education Patient Instructions Indication:Smoker Start:11-Apr-2020 Instruction Type:Provider Instructions for Treatment How to Access Health Informa tion Online using Patient Portal and [employer]rd [employer] Apps Indication:Smoker Start:11-Apr-2020 Instruction Type:Patient Education How to access health informa tion online Indication:Pre-operative exam (Renamed from Encounter for pre-operative examination) Start:05-Aug-2018 Instruction Type:Patient Education How to access health informa tion online - Detail Indication:Pre-operative exam (Renamed from Encounter for pre-operative examination) Start:05-Aug-2018 Instruction Type:Patient Education Patient Instructions Indication:Pre-operative exam (Renamed from Encounter for pre-operative examination) Start:05-Aug-2018 Instruction Type:Provider Instructions for Treatment How to access health informa tion online Indication:Smoker Start:01-Dec-2017 Instruction Type:Patient Education How to access health informa tion online - Detail Indication:Smoker Start:01-Dec-2017 Instruction Type:Patient Education Patient Instructions Indication:Smoker Start:01-Dec-2017 Instruction Type:Provider Instructions for Treatment How to access health informa tion online Indication:Anxiety Start:26-Sep-2017 Instruction Type:Patient Education How to access health informa tion online - Detail Indication:Anxiety Start:26-Sep-2017 Instruction Type:Patient Education Patient Instructions Indication:Anxiety Start:26-Sep-2017 Instruction Type:Provider Instructions for Treatment How to access health informa tion online Indication:Hyperlipidemia Start:06-Jun-2017 Instruction Type:Patient Education How to access health informa tion online - Detail Indication:Hyperlipidemia Start:06-Jun-2017 Instruction Type:Patient Education Patient Instructions Indication:Body mass index (bmi) 29.0-29.9, adult Start:06-Jun-2017 Instruction Type:Provider Instructions for Treatment How to access health informa tion online Indication:Fatigue Start:14-Feb-2017 Instruction Type:Patient Education How to access health informa tion online - Detail Indication:Fatigue Start:14-Feb-2017 Instruction Type:Patient Education Patient Instructions Indication:Fatigue Start:14-Feb-2017 Instruction Type:Provider Instructions for Treatment How to access health informa tion online Indication:Anxiety Start:24-Jan-2017 Instruction Type:Patient Education How to access health informa tion online - Detail Indication:Anxiety Start:24-Jan-2017 Instruction Type:Patient Education Patient Instructions Indication:Anxiety Start:24-Jan-2017 Instruction Type:Provider Instructions for Treatment How to access health informa tion online Indication:Benign essential hypertension Start:15-Mar-2016 Instruction Type:Patient Education How to access health informa tion online - Detail Indication:Benign essential hypertension Start:15-Mar-2016 Instruction Type:Patient Education Patient Instructions Indication:Benign essential hypertension Start:15-Mar-2016 Instruction Type:Provider Instructions for Treatment Patient Instructions Indication:Osteopenia Start:01-Mar-2016 Instruction Type:Provider Instructions for Treatment How to access health informa tion online Indication:Nonsmoker Start:24-Nov-2015 Instruction Type:Patient Education How to access health informa tion online - Detail Indication:Nonsmoker Start:24-Nov-2015 Instruction Type:Patient Education Patient Instructions Indication:Nonsmoker Start:24-Nov-2015 Instruction Type:Provider Instructions for Treatment How to access health informa tion online Indication:Preop examination Start:06-Oct-2015 Instruction Type:Patient Education How to access health informa tion online - Detail Indication:Preop examination Start:06-Oct-2015 Instruction Type:Patient Education Patient Instructions Indication:Preop examination Start:06-Oct-2015 Instruction Type:Provider Instructions for Treatment How to access health informa tion online Indication:Postmenopausal bleeding Start:07-Jun-2015 Instruction Type:Patient Education How to access health informa tion online - Detail Indication:Postmenopausal bleeding Start:07-Jun-2015 Instruction Type:Patient Education Patient Instructions Indication:Postmenopausal bleeding Start:07-Jun-2015 Instruction Type:Provider Instructions for Treatment Patient Instructions Indication:Benign essential hypertension Start:27-Jul-2014 Instruction Type:Provider Instructions for Treatment Patient Instructions Indication:Osteopenia Start:13-Aug-2013 Instruction Type:Provider Instructions for Treatment Patient Instructions Indication:Well woman exam Start:11-Jun-2013 Instruction Type:Provider Instructions for Treatment Patient Instructions Indication:Benign essential hypertension Start:20-May-2012 Instruction Type:Provider Instructions for Treatment Patient Instructions Indication:Benign essential hypertension Start:31-Jan-2012 Instruction Type:Provider Instructions for Treatment Patient Instructions Indication:Well woman exam Start:14-Jan-2012 Instruction Type:Provider Instructions for Treatment [facility]; [facility] Work Phone: Instructions* Name Dates Details Patient Instructions Indication:Smoker Start:01-Sep-2020 Instruction Type:Provider Instructions for Treatment How to Access Health Informa tion Online using Patient Portal and [employer]rd [employer] Apps Indication:Smoker Start:01-Sep-2020 Instruction Type:Patient Education Patient Instructions Indication:Abdominal pain, lower Start:21-Aug-2020 Instruction Type:Provider Instructions for Treatment How to Access Health Informa tion Online using Patient Portal and [employer]rd [employer] Apps Indication:Abdominal pain, lower Start:21-Aug-2020 Instruction Type:Patient Education Patient Instructions Indication:Smoker Start:07-Jul-2020 Instruction Type:Provider Instructions for Treatment How to Access Health Informa tion Online using Patient Portal and [employer]rd [employer] Apps Indication:Smoker Start:07-Jul-2020 Instruction Type:Patient Education Patient Instructions Indication:BMI 30.0-30.9,adult Start:26-Jun-2020 Instruction Type:Provider Instructions for Treatment How to Access Health Informa tion Online using Patient Portal and [employer]rd [employer] Apps Indication:BMI 30.0-30.9,adult Start:26-Jun-2020 Instruction Type:Patient Education Patient Instructions Indication:Smoker Start:18-Apr-2020 Instruction Type:Provider Instructions for Treatment How to Access Health Informa tion Online using Patient Portal and [employer]rd [employer] Apps Indication:Smoker Start:18-Apr-2020 Instruction Type:Patient Education Patient Instructions Indication:Smoker Start:11-Apr-2020 Instruction Type:Provider Instructions for Treatment How to Access Health Informa tion Online using Patient Portal and [employer]rd [employer] Apps Indication:Smoker Start:11-Apr-2020 Instruction Type:Patient Education How to access health informa tion online Indication:Pre-operative exam (Renamed from Encounter for pre-operative examination) Start:05-Aug-2018 Instruction Type:Patient Education How to access health informa tion online - Detail Indication:Pre-operative exam (Renamed from Encounter for pre-operative examination) Start:05-Aug-2018 Instruction Type:Patient Education Patient Instructions Indication:Pre-operative exam (Renamed from Encounter for pre-operative examination) Start:05-Aug-2018 Instruction Type:Provider Instructions for Treatment How to access health informa tion online Indication:Smoker Start:01-Dec-2017 Instruction Type:Patient Education How to access health informa tion online - Detail Indication:Smoker Start:01-Dec-2017 Instruction Type:Patient Education Patient Instructions Indication:Smoker Start:01-Dec-2017 Instruction Type:Provider Instructions for Treatment How to access health informa tion online Indication:Anxiety Start:26-Sep-2017 Instruction Type:Patient Education How to access health informa tion online - Detail Indication:Anxiety Start:26-Sep-2017 Instruction Type:Patient Education Patient Instructions Indication:Anxiety Start:26-Sep-2017 Instruction Type:Provider Instructions for Treatment How to access health informa tion online Indication:Hyperlipidemia Start:06-Jun-2017 Instruction Type:Patient Education How to access health informa tion online - Detail Indication:Hyperlipidemia Start:06-Jun-2017 Instruction Type:Patient Education Patient Instructions Indication:Body mass index (bmi) 29.0-29.9, adult Start:06-Jun-2017 Instruction Type:Provider Instructions for Treatment How to access health informa tion online Indication:Fatigue Start:14-Feb-2017 Instruction Type:Patient Education How to access health informa tion online - Detail Indication:Fatigue Start:14-Feb-2017 Instruction Type:Patient Education Patient Instructions Indication:Fatigue Start:14-Feb-2017 Instruction Type:Provider Instructions for Treatment How to access health informa tion online Indication:Anxiety Start:24-Jan-2017 Instruction Type:Patient Education How to access health informa tion online - Detail Indication:Anxiety Start:24-Jan-2017 Instruction Type:Patient Education Patient Instructions Indication:Anxiety Start:24-Jan-2017 Instruction Type:Provider Instructions for Treatment How to access health informa tion online Indication:Benign essential hypertension Start:15-Mar-2016 Instruction Type:Patient Education How to access health informa tion online - Detail Indication:Benign essential hypertension Start:15-Mar-2016 Instruction Type:Patient Education Patient Instructions Indication:Benign essential hypertension Start:15-Mar-2016 Instruction Type:Provider Instructions for Treatment Patient Instructions Indication:Osteopenia Start:01-Mar-2016 Instruction Type:Provider Instructions for Treatment How to access health informa tion online Indication:Nonsmoker Start:24-Nov-2015 Instruction Type:Patient Education How to access health informa tion online - Detail Indication:Nonsmoker Start:24-Nov-2015 Instruction Type:Patient Education Patient Instructions Indication:Nonsmoker Start:24-Nov-2015 Instruction Type:Provider Instructions for Treatment How to access health informa tion online Indication:Preop examination Start:06-Oct-2015 Instruction Type:Patient Education How to access health informa tion online - Detail Indication:Preop examination Start:06-Oct-2015 Instruction Type:Patient Education Patient Instructions Indication:Preop examination Start:06-Oct-2015 Instruction Type:Provider Instructions for Treatment How to access health informa tion online Indication:Postmenopausal bleeding Start:07-Jun-2015 Instruction Type:Patient Education How to access health informa tion online - Detail Indication:Postmenopausal bleeding Start:07-Jun-2015 Instruction Type:Patient Education Patient Instructions Indication:Postmenopausal bleeding Start:07-Jun-2015 Instruction Type:Provider Instructions for Treatment Patient Instructions Indication:Benign essential hypertension Start:27-Jul-2014 Instruction Type:Provider Instructions for Treatment Patient Instructions Indication:Osteopenia Start:13-Aug-2013 Instruction Type:Provider Instructions for Treatment Patient Instructions Indication:Well woman exam Start:11-Jun-2013 Instruction Type:Provider Instructions for Treatment Patient Instructions Indication:Benign essential hypertension Start:20-May-2012 Instruction Type:Provider Instructions for Treatment Patient Instructions Indication:Benign essential hypertension Start:31-Jan-2012 Instruction Type:Provider Instructions for Treatment Patient Instructions Indication:Well woman exam Start:14-Jan-2012 Instruction Type:Provider Instructions for Treatment [facility]; [facility] Work Phone: Instructions* Name Dates Details Patient Instructions Indication:Smoker Start:01-Sep-2020 Instruction Type:Provider Instructions for Treatment How to Access Health Informa tion Online using Patient Portal and [employer]rd [employer] Apps Indication:Smoker Start:01-Sep-2020 Instruction Type:Patient Education Patient Instructions Indication:Abdominal pain, lower Start:21-Aug-2020 Instruction Type:Provider Instructions for Treatment How to Access Health Informa tion Online using Patient Portal and [employer]rd [employer] Apps Indication:Abdominal pain, lower Start:21-Aug-2020 Instruction Type:Patient Education Patient Instructions Indication:Smoker Start:07-Jul-2020 Instruction Type:Provider Instructions for Treatment How to Access Health Informa tion Online using Patient Portal and [employer]rd [employer] Apps Indication:Smoker Start:07-Jul-2020 Instruction Type:Patient Education Patient Instructions Indication:BMI 30.0-30.9,adult Start:26-Jun-2020 Instruction Type:Provider Instructions for Treatment How to Access Health Informa tion Online using Patient Portal and [employer]rd [employer] Apps Indication:BMI 30.0-30.9,adult Start:26-Jun-2020 Instruction Type:Patient Education Patient Instructions Indication:Smoker Start:18-Apr-2020 Instruction Type:Provider Instructions for Treatment How to Access Health Informa tion Online using Patient Portal and [employer]rd [employer] Apps Indication:Smoker Start:18-Apr-2020 Instruction Type:Patient Education Patient Instructions Indication:Smoker Start:11-Apr-2020 Instruction Type:Provider Instructions for Treatment How to Access Health Informa tion Online using Patient Portal and [employer]rd [employer] Apps Indication:Smoker Start:11-Apr-2020 Instruction Type:Patient Education How to access health informa tion online Indication:Pre-operative exam (Renamed from Encounter for pre-operative examination) Start:05-Aug-2018 Instruction Type:Patient Education How to access health informa tion online - Detail Indication:Pre-operative exam (Renamed from Encounter for pre-operative examination) Start:05-Aug-2018 Instruction Type:Patient Education Patient Instructions Indication:Pre-operative exam (Renamed from Encounter for pre-operative examination) Start:05-Aug-2018 Instruction Type:Provider Instructions for Treatment How to access health informa tion online Indication:Smoker Start:01-Dec-2017 Instruction Type:Patient Education How to access health informa tion online - Detail Indication:Smoker Start:01-Dec-2017 Instruction Type:Patient Education Patient Instructions Indication:Smoker Start:01-Dec-2017 Instruction Type:Provider Instructions for Treatment How to access health informa tion online Indication:Anxiety Start:26-Sep-2017 Instruction Type:Patient Education How to access health informa tion online - Detail Indication:Anxiety Start:26-Sep-2017 Instruction Type:Patient Education Patient Instructions Indication:Anxiety Start:26-Sep-2017 Instruction Type:Provider Instructions for Treatment How to access health informa tion online Indication:Hyperlipidemia Start:06-Jun-2017 Instruction Type:Patient Education How to access health informa tion online - Detail Indication:Hyperlipidemia Start:06-Jun-2017 Instruction Type:Patient Education Patient Instructions Indication:Body mass index (bmi) 29.0-29.9, adult Start:06-Jun-2017 Instruction Type:Provider Instructions for Treatment How to access health informa tion online Indication:Fatigue Start:14-Feb-2017 Instruction Type:Patient Education How to access health informa tion online - Detail Indication:Fatigue Start:14-Feb-2017 Instruction Type:Patient Education Patient Instructions Indication:Fatigue Start:14-Feb-2017 Instruction Type:Provider Instructions for Treatment How to access health informa tion online Indication:Anxiety Start:24-Jan-2017 Instruction Type:Patient Education How to access health informa tion online - Detail Indication:Anxiety Start:24-Jan-2017 Instruction Type:Patient Education Patient Instructions Indication:Anxiety Start:24-Jan-2017 Instruction Type:Provider Instructions for Treatment How to access health informa tion online Indication:Benign essential hypertension Start:15-Mar-2016 Instruction Type:Patient Education How to access health informa tion online - Detail Indication:Benign essential hypertension Start:15-Mar-2016 Instruction Type:Patient Education Patient Instructions Indication:Benign essential hypertension Start:15-Mar-2016 Instruction Type:Provider Instructions for Treatment Patient Instructions Indication:Osteopenia Start:01-Mar-2016 Instruction Type:Provider Instructions for Treatment How to access health informa tion online Indication:Nonsmoker Start:24-Nov-2015 Instruction Type:Patient Education How to access health informa tion online - Detail Indication:Nonsmoker Start:24-Nov-2015 Instruction Type:Patient Education Patient Instructions Indication:Nonsmoker Start:24-Nov-2015 Instruction Type:Provider Instructions for Treatment How to access health informa tion online Indication:Preop examination Start:06-Oct-2015 Instruction Type:Patient Education How to access health informa tion online - Detail Indication:Preop examination Start:06-Oct-2015 Instruction Type:Patient Education Patient Instructions Indication:Preop examination Start:06-Oct-2015 Instruction Type:Provider Instructions for Treatment How to access health informa tion online Indication:Postmenopausal bleeding Start:07-Jun-2015 Instruction Type:Patient Education How to access health informa tion online - Detail Indication:Postmenopausal bleeding Start:07-Jun-2015 Instruction Type:Patient Education Patient Instructions Indication:Postmenopausal bleeding Start:07-Jun-2015 Instruction Type:Provider Instructions for Treatment Patient Instructions Indication:Benign essential hypertension Start:27-Jul-2014 Instruction Type:Provider Instructions for Treatment Patient Instructions Indication:Osteopenia Start:13-Aug-2013 Instruction Type:Provider Instructions for Treatment Patient Instructions Indication:Well woman exam Start:11-Jun-2013 Instruction Type:Provider Instructions for Treatment Patient Instructions Indication:Benign essential hypertension Start:20-May-2012 Instruction Type:Provider Instructions for Treatment Patient Instructions Indication:Benign essential hypertension Start:31-Jan-2012 Instruction Type:Provider Instructions for Treatment Patient Instructions Indication:Well woman exam Start:14-Jan-2012 Instruction Type:Provider Instructions for Treatment [facility]; [facility] Work Phone: Instructions* Name Dates Details Patient Instructions Indication:Smoker Start:12-Mar-2022 Instruction Type:Provider Instructions for Treatment How to Access Health Informa tion Online using Patient Portal and [employer]rd [employer] Apps Indication:Smoker Start:12-Mar-2022 Instruction Type:Patient Education Patient Instructions Indication:Smoker Start:01-Sep-2020 Instruction Type:Provider Instructions for Treatment How to Access Health Informa tion Online using Patient Portal and [employer]rd [employer] Apps Indication:Smoker Start:01-Sep-2020 Instruction Type:Patient Education Patient Instructions Indication:Abdominal pain, lower Start:21-Aug-2020 Instruction Type:Provider Instructions for Treatment How to Access Health Informa tion Online using Patient Portal and [employer]rd [employer] Apps Indication:Abdominal pain, lower Start:21-Aug-2020 Instruction Type:Patient Education Patient Instructions Indication:Smoker Start:07-Jul-2020 Instruction Type:Provider Instructions for Treatment How to Access Health Informa tion Online using Patient Portal and [employer]rd [employer] Apps Indication:Smoker Start:07-Jul-2020 Instruction Type:Patient Education Patient Instructions Indication:BMI 30.0-30.9,adult Start:26-Jun-2020 Instruction Type:Provider Instructions for Treatment How to Access Health Informa tion Online using Patient Portal and [employer]rd [employer] Apps Indication:BMI 30.0-30.9,adult Start:26-Jun-2020 Instruction Type:Patient Education Patient Instructions Indication:Smoker Start:18-Apr-2020 Instruction Type:Provider Instructions for Treatment How to Access Health Informa tion Online using Patient Portal and [employer]rd [employer] Apps Indication:Smoker Start:18-Apr-2020 Instruction Type:Patient Education Patient Instructions Indication:Smoker Start:11-Apr-2020 Instruction Type:Provider Instructions for Treatment How to Access Health Informa tion Online using Patient Portal and [employer]rd [employer] Apps Indication:Smoker Start:11-Apr-2020 Instruction Type:Patient Education How to access health informa tion online Indication:Pre-operative exam (Renamed from Encounter for pre-operative examination) Start:05-Aug-2018 Instruction Type:Patient Education How to access health informa tion online - Detail Indication:Pre-operative exam (Renamed from Encounter for pre-operative examination) Start:05-Aug-2018 Instruction Type:Patient Education Patient Instructions Indication:Pre-operative exam (Renamed from Encounter for pre-operative examination) Start:05-Aug-2018 Instruction Type:Provider Instructions for Treatment How to access health informa tion online Indication:Smoker Start:01-Dec-2017 Instruction Type:Patient Education How to access health informa tion online - Detail Indication:Smoker Start:01-Dec-2017 Instruction Type:Patient Education Patient Instructions Indication:Smoker Start:01-Dec-2017 Instruction Type:Provider Instructions for Treatment How to access health informa tion online Indication:Anxiety Start:26-Sep-2017 Instruction Type:Patient Education How to access health informa tion online - Detail Indication:Anxiety Start:26-Sep-2017 Instruction Type:Patient Education Patient Instructions Indication:Anxiety Start:26-Sep-2017 Instruction Type:Provider Instructions for Treatment How to access health informa tion online Indication:Hyperlipidemia Start:06-Jun-2017 Instruction Type:Patient Education How to access health informa tion online - Detail Indication:Hyperlipidemia Start:06-Jun-2017 Instruction Type:Patient Education Patient Instructions Indication:Body mass index (bmi) 29.0-29.9, adult Start:06-Jun-2017 Instruction Type:Provider Instructions for Treatment How to access health informa tion online Indication:Fatigue Start:14-Feb-2017 Instruction Type:Patient Education How to access health informa tion online - Detail Indication:Fatigue Start:14-Feb-2017 Instruction Type:Patient Education Patient Instructions Indication:Fatigue Start:14-Feb-2017 Instruction Type:Provider Instructions for Treatment How to access health informa tion online Indication:Anxiety Start:24-Jan-2017 Instruction Type:Patient Education How to access health informa tion online - Detail Indication:Anxiety Start:24-Jan-2017 Instruction Type:Patient Education Patient Instructions Indication:Anxiety Start:24-Jan-2017 Instruction Type:Provider Instructions for Treatment How to access health informa tion online Indication:Benign essential hypertension Start:15-Mar-2016 Instruction Type:Patient Education How to access health informa tion online - Detail Indication:Benign essential hypertension Start:15-Mar-2016 Instruction Type:Patient Education Patient Instructions Indication:Benign essential hypertension Start:15-Mar-2016 Instruction Type:Provider Instructions for Treatment Patient Instructions Indication:Osteopenia Start:01-Mar-2016 Instruction Type:Provider Instructions for Treatment How to access health informa tion online Indication:Nonsmoker Start:24-Nov-2015 Instruction Type:Patient Education How to access health informa tion online - Detail Indication:Nonsmoker Start:24-Nov-2015 Instruction Type:Patient Education Patient Instructions Indication:Nonsmoker Start:24-Nov-2015 Instruction Type:Provider Instructions for Treatment How to access health informa tion online Indication:Preop examination Start:06-Oct-2015 Instruction Type:Patient Education How to access health informa tion online - Detail Indication:Preop examination Start:06-Oct-2015 Instruction Type:Patient Education Patient Instructions Indication:Preop examination Start:06-Oct-2015 Instruction Type:Provider Instructions for Treatment How to access health informa tion online Indication:Postmenopausal bleeding Start:07-Jun-2015 Instruction Type:Patient Education How to access health informa tion online - Detail Indication:Postmenopausal bleeding Start:07-Jun-2015 Instruction Type:Patient Education Patient Instructions Indication:Postmenopausal bleeding Start:07-Jun-2015 Instruction Type:Provider Instructions for Treatment Patient Instructions Indication:Benign essential hypertension Start:27-Jul-2014 Instruction Type:Provider Instructions for Treatment Patient Instructions Indication:Osteopenia Start:13-Aug-2013 Instruction Type:Provider Instructions for Treatment Patient Instructions Indication:Well woman exam Start:11-Jun-2013 Instruction Type:Provider Instructions for Treatment Patient Instructions Indication:Benign essential hypertension Start:20-May-2012 Instruction Type:Provider Instructions for Treatment Patient Instructions Indication:Benign essential hypertension Start:31-Jan-2012 Instruction Type:Provider Instructions for Treatment Patient Instructions Indication:Well woman exam Start:14-Jan-2012 Instruction Type:Provider Instructions for Treatment [facility]; [facility] Work Phone: Instructions* Name Dates Details Patient Instructions Indication:Smoker Start:12-Mar-2022 Instruction Type:Provider Instructions for Treatment How to Access Health Informa tion Online using Patient Portal and [employer]rd [employer] Apps Indication:Smoker Start:12-Mar-2022 Instruction Type:Patient Education Patient Instructions Indication:Smoker Start:01-Sep-2020 Instruction Type:Provider Instructions for Treatment How to Access Health Informa tion Online using Patient Portal and [employer]rd [employer] Apps Indication:Smoker Start:01-Sep-2020 Instruction Type:Patient Education Patient Instructions Indication:Abdominal pain, lower Start:21-Aug-2020 Instruction Type:Provider Instructions for Treatment How to Access Health Informa tion Online using Patient Portal and [employer]rd [employer] Apps Indication:Abdominal pain, lower Start:21-Aug-2020 Instruction Type:Patient Education Patient Instructions Indication:Smoker Start:07-Jul-2020 Instruction Type:Provider Instructions for Treatment How to Access Health Informa tion Online using Patient Portal and [employer]rd [employer] Apps Indication:Smoker Start:07-Jul-2020 Instruction Type:Patient Education Patient Instructions Indication:BMI 30.0-30.9,adult Start:26-Jun-2020 Instruction Type:Provider Instructions for Treatment How to Access Health Informa tion Online using Patient Portal and [employer]rd [employer] Apps Indication:BMI 30.0-30.9,adult Start:26-Jun-2020 Instruction Type:Patient Education Patient Instructions Indication:Smoker Start:18-Apr-2020 Instruction Type:Provider Instructions for Treatment How to Access Health Informa tion Online using Patient Portal and [employer]rd [employer] Apps Indication:Smoker Start:18-Apr-2020 Instruction Type:Patient Education Patient Instructions Indication:Smoker Start:11-Apr-2020 Instruction Type:Provider Instructions for Treatment How to Access Health Informa tion Online using Patient Portal and [employer]rd [employer] Apps Indication:Smoker Start:11-Apr-2020 Instruction Type:Patient Education How to access health informa tion online Indication:Pre-operative exam (Renamed from Encounter for pre-operative examination) Start:05-Aug-2018 Instruction Type:Patient Education How to access health informa tion online - Detail Indication:Pre-operative exam (Renamed from Encounter for pre-operative examination) Start:05-Aug-2018 Instruction Type:Patient Education Patient Instructions Indication:Pre-operative exam (Renamed from Encounter for pre-operative examination) Start:05-Aug-2018 Instruction Type:Provider Instructions for Treatment How to access health informa tion online Indication:Smoker Start:01-Dec-2017 Instruction Type:Patient Education How to access health informa tion online - Detail Indication:Smoker Start:01-Dec-2017 Instruction Type:Patient Education Patient Instructions Indication:Smoker Start:01-Dec-2017 Instruction Type:Provider Instructions for Treatment How to access health informa tion online Indication:Anxiety Start:26-Sep-2017 Instruction Type:Patient Education How to access health informa tion online - Detail Indication:Anxiety Start:26-Sep-2017 Instruction Type:Patient Education Patient Instructions Indication:Anxiety Start:26-Sep-2017 Instruction Type:Provider Instructions for Treatment How to access health informa tion online Indication:Hyperlipidemia Start:06-Jun-2017 Instruction Type:Patient Education How to access health informa tion online - Detail Indication:Hyperlipidemia Start:06-Jun-2017 Instruction Type:Patient Education Patient Instructions Indication:Body mass index (bmi) 29.0-29.9, adult Start:06-Jun-2017 Instruction Type:Provider Instructions for Treatment How to access health informa tion online Indication:Fatigue Start:14-Feb-2017 Instruction Type:Patient Education How to access health informa tion online - Detail Indication:Fatigue Start:14-Feb-2017 Instruction Type:Patient Education Patient Instructions Indication:Fatigue Start:14-Feb-2017 Instruction Type:Provider Instructions for Treatment How to access health informa tion online Indication:Anxiety Start:24-Jan-2017 Instruction Type:Patient Education How to access health informa tion online - Detail Indication:Anxiety Start:24-Jan-2017 Instruction Type:Patient Education Patient Instructions Indication:Anxiety Start:24-Jan-2017 Instruction Type:Provider Instructions for Treatment How to access health informa tion online Indication:Benign essential hypertension Start:15-Mar-2016 Instruction Type:Patient Education How to access health informa tion online - Detail Indication:Benign essential hypertension Start:15-Mar-2016 Instruction Type:Patient Education Patient Instructions Indication:Benign essential hypertension Start:15-Mar-2016 Instruction Type:Provider Instructions for Treatment Patient Instructions Indication:Osteopenia Start:01-Mar-2016 Instruction Type:Provider Instructions for Treatment How to access health informa tion online Indication:Nonsmoker Start:24-Nov-2015 Instruction Type:Patient Education How to access health informa tion online - Detail Indication:Nonsmoker Start:24-Nov-2015 Instruction Type:Patient Education Patient Instructions Indication:Nonsmoker Start:24-Nov-2015 Instruction Type:Provider Instructions for Treatment How to access health informa tion online Indication:Preop examination Start:06-Oct-2015 Instruction Type:Patient Education How to access health informa tion online - Detail Indication:Preop examination Start:06-Oct-2015 Instruction Type:Patient Education Patient Instructions Indication:Preop examination Start:06-Oct-2015 Instruction Type:Provider Instructions for Treatment How to access health informa tion online Indication:Postmenopausal bleeding Start:07-Jun-2015 Instruction Type:Patient Education How to access health informa tion online - Detail Indication:Postmenopausal bleeding Start:07-Jun-2015 Instruction Type:Patient Education Patient Instructions Indication:Postmenopausal bleeding Start:07-Jun-2015 Instruction Type:Provider Instructions for Treatment Patient Instructions Indication:Benign essential hypertension Start:27-Jul-2014 Instruction Type:Provider Instructions for Treatment Patient Instructions Indication:Osteopenia Start:13-Aug-2013 Instruction Type:Provider Instructions for Treatment Patient Instructions Indication:Well woman exam Start:11-Jun-2013 Instruction Type:Provider Instructions for Treatment Patient Instructions Indication:Benign essential hypertension Start:20-May-2012 Instruction Type:Provider Instructions for Treatment Patient Instructions Indication:Benign essential hypertension Start:31-Jan-2012 Instruction Type:Provider Instructions for Treatment Patient Instructions Indication:Well woman exam Start:14-Jan-2012 Instruction Type:Provider Instructions for Treatment [facility]; [facility] Work Phone: Instructions* Name Dates Details Patient Instructions Indication:BMI 33.0-33.9,adult Start:18-Jun-2022 Instruction Type:Provider Instructions for Treatment How to Access Health Informa tion Online using Patient Portal and [employer]rd [employer] Apps Indication:BMI 33.0-33.9,adult Start:18-Jun-2022 Instruction Type:Patient Education Patient Instructions Indication:Smoker Start:12-Mar-2022 Instruction Type:Provider Instructions for Treatment How to Access Health Informa tion Online using Patient Portal and [employer]rd [employer] Apps Indication:Smoker Start:12-Mar-2022 Instruction Type:Patient Education Patient Instructions Indication:Smoker Start:01-Sep-2020 Instruction Type:Provider Instructions for Treatment How to Access Health Informa tion Online using Patient Portal and [employer]rd [employer] Apps Indication:Smoker Start:01-Sep-2020 Instruction Type:Patient Education Patient Instructions Indication:Abdominal pain, lower Start:21-Aug-2020 Instruction Type:Provider Instructions for Treatment How to Access Health Informa tion Online using Patient Portal and [employer]rd [employer] Apps Indication:Abdominal pain, lower Start:21-Aug-2020 Instruction Type:Patient Education Patient Instructions Indication:Smoker Start:07-Jul-2020 Instruction Type:Provider Instructions for Treatment How to Access Health Informa tion Online using Patient Portal and [employer]rd [employer] Apps Indication:Smoker Start:07-Jul-2020 Instruction Type:Patient Education Patient Instructions Indication:BMI 30.0-30.9,adult Start:26-Jun-2020 Instruction Type:Provider Instructions for Treatment How to Access Health Informa tion Online using Patient Portal and [employer]rd [employer] Apps Indication:BMI 30.0-30.9,adult Start:26-Jun-2020 Instruction Type:Patient Education Patient Instructions Indication:Smoker Start:18-Apr-2020 Instruction Type:Provider Instructions for Treatment How to Access Health Informa tion Online using Patient Portal and [employer]rd [employer] Apps Indication:Smoker Start:18-Apr-2020 Instruction Type:Patient Education Patient Instructions Indication:Smoker Start:11-Apr-2020 Instruction Type:Provider Instructions for Treatment How to Access Health Informa tion Online using Patient Portal and [employer]rd [employer] Apps Indication:Smoker Start:11-Apr-2020 Instruction Type:Patient Education How to access health informa tion online Indication:Pre-operative exam (Renamed from Encounter for pre-operative examination) Start:05-Aug-2018 Instruction Type:Patient Education How to access health informa tion online - Detail Indication:Pre-operative exam (Renamed from Encounter for pre-operative examination) Start:05-Aug-2018 Instruction Type:Patient Education Patient Instructions Indication:Pre-operative exam (Renamed from Encounter for pre-operative examination) Start:05-Aug-2018 Instruction Type:Provider Instructions for Treatment How to access health informa tion online Indication:Smoker Start:01-Dec-2017 Instruction Type:Patient Education How to access health informa tion online - Detail Indication:Smoker Start:01-Dec-2017 Instruction Type:Patient Education Patient Instructions Indication:Smoker Start:01-Dec-2017 Instruction Type:Provider Instructions for Treatment How to access health informa tion online Indication:Anxiety Start:26-Sep-2017 Instruction Type:Patient Education How to access health informa tion online - Detail Indication:Anxiety Start:26-Sep-2017 Instruction Type:Patient Education Patient Instructions Indication:Anxiety Start:26-Sep-2017 Instruction Type:Provider Instructions for Treatment How to access health informa tion online Indication:Hyperlipidemia Start:06-Jun-2017 Instruction Type:Patient Education How to access health informa tion online - Detail Indication:Hyperlipidemia Start:06-Jun-2017 Instruction Type:Patient Education Patient Instructions Indication:Body mass index (bmi) 29.0-29.9, adult Start:06-Jun-2017 Instruction Type:Provider Instructions for Treatment How to access health informa tion online Indication:Fatigue Start:14-Feb-2017 Instruction Type:Patient Education How to access health informa tion online - Detail Indication:Fatigue Start:14-Feb-2017 Instruction Type:Patient Education Patient Instructions Indication:Fatigue Start:14-Feb-2017 Instruction Type:Provider Instructions for Treatment How to access health informa tion online Indication:Anxiety Start:24-Jan-2017 Instruction Type:Patient Education How to access health informa tion online - Detail Indication:Anxiety Start:24-Jan-2017 Instruction Type:Patient Education Patient Instructions Indication:Anxiety Start:24-Jan-2017 Instruction Type:Provider Instructions for Treatment How to access health informa tion online Indication:Benign essential hypertension Start:15-Mar-2016 Instruction Type:Patient Education How to access health informa tion online - Detail Indication:Benign essential hypertension Start:15-Mar-2016 Instruction Type:Patient Education Patient Instructions Indication:Benign essential hypertension Start:15-Mar-2016 Instruction Type:Provider Instructions for Treatment Patient Instructions Indication:Osteopenia Start:01-Mar-2016 Instruction Type:Provider Instructions for Treatment How to access health informa tion online Indication:Nonsmoker Start:24-Nov-2015 Instruction Type:Patient Education How to access health informa tion online - Detail Indication:Nonsmoker Start:24-Nov-2015 Instruction Type:Patient Education Patient Instructions Indication:Nonsmoker Start:24-Nov-2015 Instruction Type:Provider Instructions for Treatment How to access health informa tion online Indication:Preop examination Start:06-Oct-2015 Instruction Type:Patient Education How to access health informa tion online - Detail Indication:Preop examination Start:06-Oct-2015 Instruction Type:Patient Education Patient Instructions Indication:Preop examination Start:06-Oct-2015 Instruction Type:Provider Instructions for Treatment How to access health informa tion online Indication:Postmenopausal bleeding Start:07-Jun-2015 Instruction Type:Patient Education How to access health informa tion online - Detail Indication:Postmenopausal bleeding Start:07-Jun-2015 Instruction Type:Patient Education Patient Instructions Indication:Postmenopausal bleeding Start:07-Jun-2015 Instruction Type:Provider Instructions for Treatment Patient Instructions Indication:Benign essential hypertension Start:27-Jul-2014 Instruction Type:Provider Instructions for Treatment Patient Instructions Indication:Osteopenia Start:13-Aug-2013 Instruction Type:Provider Instructions for Treatment Patient Instructions Indication:Well woman exam Start:11-Jun-2013 Instruction Type:Provider Instructions for Treatment Patient Instructions Indication:Benign essential hypertension Start:20-May-2012 Instruction Type:Provider Instructions for Treatment Patient Instructions Indication:Benign essential hypertension Start:31-Jan-2012 Instruction Type:Provider Instructions for Treatment Patient Instructions Indication:Well woman exam Start:14-Jan-2012 Instruction Type:Provider Instructions for Treatment [facility]; [facility] Work Phone: Instructions* Name Dates Details Patient Instructions Indication:BMI 33.0-33.9,adult Start:18-Jun-2022 Instruction Type:Provider Instructions for Treatment How to Access Health Informa tion Online using Patient Portal and [employer]rd [employer] Apps Indication:BMI 33.0-33.9,adult Start:18-Jun-2022 Instruction Type:Patient Education Patient Instructions Indication:Smoker Start:12-Mar-2022 Instruction Type:Provider Instructions for Treatment How to Access Health Informa tion Online using Patient Portal and [employer]rd [employer] Apps Indication:Smoker Start:12-Mar-2022 Instruction Type:Patient Education Patient Instructions Indication:Smoker Start:01-Sep-2020 Instruction Type:Provider Instructions for Treatment How to Access Health Informa tion Online using Patient Portal and [employer]rd [employer] Apps Indication:Smoker Start:01-Sep-2020 Instruction Type:Patient Education Patient Instructions Indication:Abdominal pain, lower Start:21-Aug-2020 Instruction Type:Provider Instructions for Treatment How to Access Health Informa tion Online using Patient Portal and [employer]rd [employer] Apps Indication:Abdominal pain, lower Start:21-Aug-2020 Instruction Type:Patient Education Patient Instructions Indication:Smoker Start:07-Jul-2020 Instruction Type:Provider Instructions for Treatment How to Access Health Informa tion Online using Patient Portal and [employer]rd [employer] Apps Indication:Smoker Start:07-Jul-2020 Instruction Type:Patient Education Patient Instructions Indication:BMI 30.0-30.9,adult Start:26-Jun-2020 Instruction Type:Provider Instructions for Treatment How to Access Health Informa tion Online using Patient Portal and [employer]rd [employer] Apps Indication:BMI 30.0-30.9,adult Start:26-Jun-2020 Instruction Type:Patient Education Patient Instructions Indication:Smoker Start:18-Apr-2020 Instruction Type:Provider Instructions for Treatment How to Access Health Informa tion Online using Patient Portal and [employer]rd [employer] Apps Indication:Smoker Start:18-Apr-2020 Instruction Type:Patient Education Patient Instructions Indication:Smoker Start:11-Apr-2020 Instruction Type:Provider Instructions for Treatment How to Access Health Informa tion Online using Patient Portal and [employer]rd [employer] Apps Indication:Smoker Start:11-Apr-2020 Instruction Type:Patient Education How to access health informa tion online Indication:Pre-operative exam (Renamed from Encounter for pre-operative examination) Start:05-Aug-2018 Instruction Type:Patient Education How to access health informa tion online - Detail Indication:Pre-operative exam (Renamed from Encounter for pre-operative examination) Start:05-Aug-2018 Instruction Type:Patient Education Patient Instructions Indication:Pre-operative exam (Renamed from Encounter for pre-operative examination) Start:05-Aug-2018 Instruction Type:Provider Instructions for Treatment How to access health informa tion online Indication:Smoker Start:01-Dec-2017 Instruction Type:Patient Education How to access health informa tion online - Detail Indication:Smoker Start:01-Dec-2017 Instruction Type:Patient Education Patient Instructions Indication:Smoker Start:01-Dec-2017 Instruction Type:Provider Instructions for Treatment How to access health informa tion online Indication:Anxiety Start:26-Sep-2017 Instruction Type:Patient Education How to access health informa tion online - Detail Indication:Anxiety Start:26-Sep-2017 Instruction Type:Patient Education Patient Instructions Indication:Anxiety Start:26-Sep-2017 Instruction Type:Provider Instructions for Treatment How to access health informa tion online Indication:Hyperlipidemia Start:06-Jun-2017 Instruction Type:Patient Education How to access health informa tion online - Detail Indication:Hyperlipidemia Start:06-Jun-2017 Instruction Type:Patient Education Patient Instructions Indication:Body mass index (bmi) 29.0-29.9, adult Start:06-Jun-2017 Instruction Type:Provider Instructions for Treatment How to access health informa tion online Indication:Fatigue Start:14-Feb-2017 Instruction Type:Patient Education How to access health informa tion online - Detail Indication:Fatigue Start:14-Feb-2017 Instruction Type:Patient Education Patient Instructions Indication:Fatigue Start:14-Feb-2017 Instruction Type:Provider Instructions for Treatment How to access health informa tion online Indication:Anxiety Start:24-Jan-2017 Instruction Type:Patient Education How to access health informa tion online - Detail Indication:Anxiety Start:24-Jan-2017 Instruction Type:Patient Education Patient Instructions Indication:Anxiety Start:24-Jan-2017 Instruction Type:Provider Instructions for Treatment How to access health informa tion online Indication:Benign essential hypertension Start:15-Mar-2016 Instruction Type:Patient Education How to access health informa tion online - Detail Indication:Benign essential hypertension Start:15-Mar-2016 Instruction Type:Patient Education Patient Instructions Indication:Benign essential hypertension Start:15-Mar-2016 Instruction Type:Provider Instructions for Treatment Patient Instructions Indication:Osteopenia Start:01-Mar-2016 Instruction Type:Provider Instructions for Treatment How to access health informa tion online Indication:Nonsmoker Start:24-Nov-2015 Instruction Type:Patient Education How to access health informa tion online - Detail Indication:Nonsmoker Start:24-Nov-2015 Instruction Type:Patient Education Patient Instructions Indication:Nonsmoker Start:24-Nov-2015 Instruction Type:Provider Instructions for Treatment How to access health informa tion online Indication:Preop examination Start:06-Oct-2015 Instruction Type:Patient Education How to access health informa tion online - Detail Indication:Preop examination Start:06-Oct-2015 Instruction Type:Patient Education Patient Instructions Indication:Preop examination Start:06-Oct-2015 Instruction Type:Provider Instructions for Treatment How to access health informa tion online Indication:Postmenopausal bleeding Start:07-Jun-2015 Instruction Type:Patient Education How to access health informa tion online - Detail Indication:Postmenopausal bleeding Start:07-Jun-2015 Instruction Type:Patient Education Patient Instructions Indication:Postmenopausal bleeding Start:07-Jun-2015 Instruction Type:Provider Instructions for Treatment Patient Instructions Indication:Benign essential hypertension Start:27-Jul-2014 Instruction Type:Provider Instructions for Treatment Patient Instructions Indication:Osteopenia Start:13-Aug-2013 Instruction Type:Provider Instructions for Treatment Patient Instructions Indication:Well woman exam Start:11-Jun-2013 Instruction Type:Provider Instructions for Treatment Patient Instructions Indication:Benign essential hypertension Start:20-May-2012 Instruction Type:Provider Instructions for Treatment Patient Instructions Indication:Benign essential hypertension Start:31-Jan-2012 Instruction Type:Provider Instructions for Treatment Patient Instructions Indication:Well woman exam Start:14-Jan-2012 Instruction Type:Provider Instructions for Treatment [facility]; [facility] Work Phone: Instructions* Name Dates Details Patient Instructions Indication:BMI 33.0-33.9,adult Start:18-Jun-2022 Instruction Type:Provider Instructions for Treatment How to Access Health Informa tion Online using Patient Portal and [employer]rd [employer] Apps Indication:BMI 33.0-33.9,adult Start:18-Jun-2022 Instruction Type:Patient Education Patient Instructions Indication:Smoker Start:12-Mar-2022 Instruction Type:Provider Instructions for Treatment How to Access Health Informa tion Online using Patient Portal and [employer]rd [employer] Apps Indication:Smoker Start:12-Mar-2022 Instruction Type:Patient Education Patient Instructions Indication:Smoker Start:01-Sep-2020 Instruction Type:Provider Instructions for Treatment How to Access Health Informa tion Online using Patient Portal and [employer]rd [employer] Apps Indication:Smoker Start:01-Sep-2020 Instruction Type:Patient Education Patient Instructions Indication:Abdominal pain, lower Start:21-Aug-2020 Instruction Type:Provider Instructions for Treatment How to Access Health Informa tion Online using Patient Portal and [employer]rd [employer] Apps Indication:Abdominal pain, lower Start:21-Aug-2020 Instruction Type:Patient Education Patient Instructions Indication:Smoker Start:07-Jul-2020 Instruction Type:Provider Instructions for Treatment How to Access Health Informa tion Online using Patient Portal and [employer]rd [employer] Apps Indication:Smoker Start:07-Jul-2020 Instruction Type:Patient Education Patient Instructions Indication:BMI 30.0-30.9,adult Start:26-Jun-2020 Instruction Type:Provider Instructions for Treatment How to Access Health Informa tion Online using Patient Portal and [employer]rd [employer] Apps Indication:BMI 30.0-30.9,adult Start:26-Jun-2020 Instruction Type:Patient Education Patient Instructions Indication:Smoker Start:18-Apr-2020 Instruction Type:Provider Instructions for Treatment How to Access Health Informa tion Online using Patient Portal and [employer]rd [employer] Apps Indication:Smoker Start:18-Apr-2020 Instruction Type:Patient Education Patient Instructions Indication:Smoker Start:11-Apr-2020 Instruction Type:Provider Instructions for Treatment How to Access Health Informa tion Online using Patient Portal and [employer]rd [employer] Apps Indication:Smoker Start:11-Apr-2020 Instruction Type:Patient Education How to access health informa tion online Indication:Pre-operative exam (Renamed from Encounter for pre-operative examination) Start:05-Aug-2018 Instruction Type:Patient Education How to access health informa tion online - Detail Indication:Pre-operative exam (Renamed from Encounter for pre-operative examination) Start:05-Aug-2018 Instruction Type:Patient Education Patient Instructions Indication:Pre-operative exam (Renamed from Encounter for pre-operative examination) Start:05-Aug-2018 Instruction Type:Provider Instructions for Treatment How to access health informa tion online Indication:Smoker Start:01-Dec-2017 Instruction Type:Patient Education How to access health informa tion online - Detail Indication:Smoker Start:01-Dec-2017 Instruction Type:Patient Education Patient Instructions Indication:Smoker Start:01-Dec-2017 Instruction Type:Provider Instructions for Treatment How to access health informa tion online Indication:Anxiety Start:26-Sep-2017 Instruction Type:Patient Education How to access health informa tion online - Detail Indication:Anxiety Start:26-Sep-2017 Instruction Type:Patient Education Patient Instructions Indication:Anxiety Start:26-Sep-2017 Instruction Type:Provider Instructions for Treatment How to access health informa tion online Indication:Hyperlipidemia Start:06-Jun-2017 Instruction Type:Patient Education How to access health informa tion online - Detail Indication:Hyperlipidemia Start:06-Jun-2017 Instruction Type:Patient Education Patient Instructions Indication:Body mass index (bmi) 29.0-29.9, adult Start:06-Jun-2017 Instruction Type:Provider Instructions for Treatment How to access health informa tion online Indication:Fatigue Start:14-Feb-2017 Instruction Type:Patient Education How to access health informa tion online - Detail Indication:Fatigue Start:14-Feb-2017 Instruction Type:Patient Education Patient Instructions Indication:Fatigue Start:14-Feb-2017 Instruction Type:Provider Instructions for Treatment How to access health informa tion online Indication:Anxiety Start:24-Jan-2017 Instruction Type:Patient Education How to access health informa tion online - Detail Indication:Anxiety Start:24-Jan-2017 Instruction Type:Patient Education Patient Instructions Indication:Anxiety Start:24-Jan-2017 Instruction Type:Provider Instructions for Treatment How to access health informa tion online Indication:Benign essential hypertension Start:15-Mar-2016 Instruction Type:Patient Education How to access health informa tion online - Detail Indication:Benign essential hypertension Start:15-Mar-2016 Instruction Type:Patient Education Patient Instructions Indication:Benign essential hypertension Start:15-Mar-2016 Instruction Type:Provider Instructions for Treatment Patient Instructions Indication:Osteopenia Start:01-Mar-2016 Instruction Type:Provider Instructions for Treatment How to access health informa tion online Indication:Nonsmoker Start:24-Nov-2015 Instruction Type:Patient Education How to access health informa tion online - Detail Indication:Nonsmoker Start:24-Nov-2015 Instruction Type:Patient Education Patient Instructions Indication:Nonsmoker Start:24-Nov-2015 Instruction Type:Provider Instructions for Treatment How to access health informa tion online Indication:Preop examination Start:06-Oct-2015 Instruction Type:Patient Education How to access health informa tion online - Detail Indication:Preop examination Start:06-Oct-2015 Instruction Type:Patient Education Patient Instructions Indication:Preop examination Start:06-Oct-2015 Instruction Type:Provider Instructions for Treatment How to access health informa tion online Indication:Postmenopausal bleeding Start:07-Jun-2015 Instruction Type:Patient Education How to access health informa tion online - Detail Indication:Postmenopausal bleeding Start:07-Jun-2015 Instruction Type:Patient Education Patient Instructions Indication:Postmenopausal bleeding Start:07-Jun-2015 Instruction Type:Provider Instructions for Treatment Patient Instructions Indication:Benign essential hypertension Start:27-Jul-2014 Instruction Type:Provider Instructions for Treatment Patient Instructions Indication:Osteopenia Start:13-Aug-2013 Instruction Type:Provider Instructions for Treatment Patient Instructions Indication:Well woman exam Start:11-Jun-2013 Instruction Type:Provider Instructions for Treatment Patient Instructions Indication:Benign essential hypertension Start:20-May-2012 Instruction Type:Provider Instructions for Treatment Patient Instructions Indication:Benign essential hypertension Start:31-Jan-2012 Instruction Type:Provider Instructions for Treatment Patient Instructions Indication:Well woman exam Start:14-Jan-2012 Instruction Type:Provider Instructions for Treatment [facility]; [facility] Work Phone: Instructions* Name Dates Details Patient Instructions Indication:BMI 33.0-33.9,adult Start:18-Jun-2022 Instruction Type:Provider Instructions for Treatment How to Access Health Informa tion Online using Patient Portal and [employer]rd [employer] Apps Indication:BMI 33.0-33.9,adult Start:18-Jun-2022 Instruction Type:Patient Education Patient Instructions Indication:Smoker Start:12-Mar-2022 Instruction Type:Provider Instructions for Treatment How to Access Health Informa tion Online using Patient Portal and [employer]rd [employer] Apps Indication:Smoker Start:12-Mar-2022 Instruction Type:Patient Education Patient Instructions Indication:Smoker Start:01-Sep-2020 Instruction Type:Provider Instructions for Treatment How to Access Health Informa tion Online using Patient Portal and [employer]rd [employer] Apps Indication:Smoker Start:01-Sep-2020 Instruction Type:Patient Education Patient Instructions Indication:Abdominal pain, lower Start:21-Aug-2020 Instruction Type:Provider Instructions for Treatment How to Access Health Informa tion Online using Patient Portal and [employer]rd [employer] Apps Indication:Abdominal pain, lower Start:21-Aug-2020 Instruction Type:Patient Education Patient Instructions Indication:Smoker Start:07-Jul-2020 Instruction Type:Provider Instructions for Treatment How to Access Health Informa tion Online using Patient Portal and [employer]rd [employer] Apps Indication:Smoker Start:07-Jul-2020 Instruction Type:Patient Education Patient Instructions Indication:BMI 30.0-30.9,adult Start:26-Jun-2020 Instruction Type:Provider Instructions for Treatment How to Access Health Informa tion Online using Patient Portal and [employer]rd [employer] Apps Indication:BMI 30.0-30.9,adult Start:26-Jun-2020 Instruction Type:Patient Education Patient Instructions Indication:Smoker Start:18-Apr-2020 Instruction Type:Provider Instructions for Treatment How to Access Health Informa tion Online using Patient Portal and [employer]rd [employer] Apps Indication:Smoker Start:18-Apr-2020 Instruction Type:Patient Education Patient Instructions Indication:Smoker Start:11-Apr-2020 Instruction Type:Provider Instructions for Treatment How to Access Health Informa tion Online using Patient Portal and [employer]rd [employer] Apps Indication:Smoker Start:11-Apr-2020 Instruction Type:Patient Education How to access health informa tion online Indication:Pre-operative exam (Renamed from Encounter for pre-operative examination) Start:05-Aug-2018 Instruction Type:Patient Education How to access health informa tion online - Detail Indication:Pre-operative exam (Renamed from Encounter for pre-operative examination) Start:05-Aug-2018 Instruction Type:Patient Education Patient Instructions Indication:Pre-operative exam (Renamed from Encounter for pre-operative examination) Start:05-Aug-2018 Instruction Type:Provider Instructions for Treatment How to access health informa tion online Indication:Smoker Start:01-Dec-2017 Instruction Type:Patient Education How to access health informa tion online - Detail Indication:Smoker Start:01-Dec-2017 Instruction Type:Patient Education Patient Instructions Indication:Smoker Start:01-Dec-2017 Instruction Type:Provider Instructions for Treatment How to access health informa tion online Indication:Anxiety Start:26-Sep-2017 Instruction Type:Patient Education How to access health informa tion online - Detail Indication:Anxiety Start:26-Sep-2017 Instruction Type:Patient Education Patient Instructions Indication:Anxiety Start:26-Sep-2017 Instruction Type:Provider Instructions for Treatment How to access health informa tion online Indication:Hyperlipidemia Start:06-Jun-2017 Instruction Type:Patient Education How to access health informa tion online - Detail Indication:Hyperlipidemia Start:06-Jun-2017 Instruction Type:Patient Education Patient Instructions Indication:Body mass index (bmi) 29.0-29.9, adult Start:06-Jun-2017 Instruction Type:Provider Instructions for Treatment How to access health informa tion online Indication:Fatigue Start:14-Feb-2017 Instruction Type:Patient Education How to access health informa tion online - Detail Indication:Fatigue Start:14-Feb-2017 Instruction Type:Patient Education Patient Instructions Indication:Fatigue Start:14-Feb-2017 Instruction Type:Provider Instructions for Treatment How to access health informa tion online Indication:Anxiety Start:24-Jan-2017 Instruction Type:Patient Education How to access health informa tion online - Detail Indication:Anxiety Start:24-Jan-2017 Instruction Type:Patient Education Patient Instructions Indication:Anxiety Start:24-Jan-2017 Instruction Type:Provider Instructions for Treatment How to access health informa tion online Indication:Benign essential hypertension Start:15-Mar-2016 Instruction Type:Patient Education How to access health informa tion online - Detail Indication:Benign essential hypertension Start:15-Mar-2016 Instruction Type:Patient Education Patient Instructions Indication:Benign essential hypertension Start:15-Mar-2016 Instruction Type:Provider Instructions for Treatment Patient Instructions Indication:Osteopenia Start:01-Mar-2016 Instruction Type:Provider Instructions for Treatment How to access health informa tion online Indication:Nonsmoker Start:24-Nov-2015 Instruction Type:Patient Education How to access health informa tion online - Detail Indication:Nonsmoker Start:24-Nov-2015 Instruction Type:Patient Education Patient Instructions Indication:Nonsmoker Start:24-Nov-2015 Instruction Type:Provider Instructions for Treatment How to access health informa tion online Indication:Preop examination Start:06-Oct-2015 Instruction Type:Patient Education How to access health informa tion online - Detail Indication:Preop examination Start:06-Oct-2015 Instruction Type:Patient Education Patient Instructions Indication:Preop examination Start:06-Oct-2015 Instruction Type:Provider Instructions for Treatment How to access health informa tion online Indication:Postmenopausal bleeding Start:07-Jun-2015 Instruction Type:Patient Education How to access health informa tion online - Detail Indication:Postmenopausal bleeding Start:07-Jun-2015 Instruction Type:Patient Education Patient Instructions Indication:Postmenopausal bleeding Start:07-Jun-2015 Instruction Type:Provider Instructions for Treatment Patient Instructions Indication:Benign essential hypertension Start:27-Jul-2014 Instruction Type:Provider Instructions for Treatment Patient Instructions Indication:Osteopenia Start:13-Aug-2013 Instruction Type:Provider Instructions for Treatment Patient Instructions Indication:Well woman exam Start:11-Jun-2013 Instruction Type:Provider Instructions for Treatment Patient Instructions Indication:Benign essential hypertension Start:20-May-2012 Instruction Type:Provider Instructions for Treatment Patient Instructions Indication:Benign essential hypertension Start:31-Jan-2012 Instruction Type:Provider Instructions for Treatment Patient Instructions Indication:Well woman exam Start:14-Jan-2012 Instruction Type:Provider Instructions for Treatment [facility]; [facility] Work Phone: Instructions* Name Dates Details Patient Instructions Indication:BMI 33.0-33.9,adult Start:18-Jun-2022 Instruction Type:Provider Instructions for Treatment How to Access Health Informa tion Online using Patient Portal and [employer]rd [employer] Apps Indication:BMI 33.0-33.9,adult Start:18-Jun-2022 Instruction Type:Patient Education Patient Instructions Indication:Smoker Start:12-Mar-2022 Instruction Type:Provider Instructions for Treatment How to Access Health Informa tion Online using Patient Portal and [employer]rd [employer] Apps Indication:Smoker Start:12-Mar-2022 Instruction Type:Patient Education Patient Instructions Indication:Smoker Start:01-Sep-2020 Instruction Type:Provider Instructions for Treatment How to Access Health Informa tion Online using Patient Portal and [employer]rd [employer] Apps Indication:Smoker Start:01-Sep-2020 Instruction Type:Patient Education Patient Instructions Indication:Abdominal pain, lower Start:21-Aug-2020 Instruction Type:Provider Instructions for Treatment How to Access Health Informa tion Online using Patient Portal and [employer]rd [employer] Apps Indication:Abdominal pain, lower Start:21-Aug-2020 Instruction Type:Patient Education Patient Instructions Indication:Smoker Start:07-Jul-2020 Instruction Type:Provider Instructions for Treatment How to Access Health Informa tion Online using Patient Portal and [employer]rd [employer] Apps Indication:Smoker Start:07-Jul-2020 Instruction Type:Patient Education Patient Instructions Indication:BMI 30.0-30.9,adult Start:26-Jun-2020 Instruction Type:Provider Instructions for Treatment How to Access Health Informa tion Online using Patient Portal and [employer]rd [employer] Apps Indication:BMI 30.0-30.9,adult Start:26-Jun-2020 Instruction Type:Patient Education Patient Instructions Indication:Smoker Start:18-Apr-2020 Instruction Type:Provider Instructions for Treatment How to Access Health Informa tion Online using Patient Portal and [employer]rd [employer] Apps Indication:Smoker Start:18-Apr-2020 Instruction Type:Patient Education Patient Instructions Indication:Smoker Start:11-Apr-2020 Instruction Type:Provider Instructions for Treatment How to Access Health Informa tion Online using Patient Portal and [employer]rd [employer] Apps Indication:Smoker Start:11-Apr-2020 Instruction Type:Patient Education How to access health informa tion online Indication:Pre-operative exam (Renamed from Encounter for pre-operative examination) Start:05-Aug-2018 Instruction Type:Patient Education How to access health informa tion online - Detail Indication:Pre-operative exam (Renamed from Encounter for pre-operative examination) Start:05-Aug-2018 Instruction Type:Patient Education Patient Instructions Indication:Pre-operative exam (Renamed from Encounter for pre-operative examination) Start:05-Aug-2018 Instruction Type:Provider Instructions for Treatment How to access health informa tion online Indication:Smoker Start:01-Dec-2017 Instruction Type:Patient Education How to access health informa tion online - Detail Indication:Smoker Start:01-Dec-2017 Instruction Type:Patient Education Patient Instructions Indication:Smoker Start:01-Dec-2017 Instruction Type:Provider Instructions for Treatment How to access health informa tion online Indication:Anxiety Start:26-Sep-2017 Instruction Type:Patient Education How to access health informa tion online - Detail Indication:Anxiety Start:26-Sep-2017 Instruction Type:Patient Education Patient Instructions Indication:Anxiety Start:26-Sep-2017 Instruction Type:Provider Instructions for Treatment How to access health informa tion online Indication:Hyperlipidemia Start:06-Jun-2017 Instruction Type:Patient Education How to access health informa tion online - Detail Indication:Hyperlipidemia Start:06-Jun-2017 Instruction Type:Patient Education Patient Instructions Indication:Body mass index (bmi) 29.0-29.9, adult Start:06-Jun-2017 Instruction Type:Provider Instructions for Treatment How to access health informa tion online Indication:Fatigue Start:14-Feb-2017 Instruction Type:Patient Education How to access health informa tion online - Detail Indication:Fatigue Start:14-Feb-2017 Instruction Type:Patient Education Patient Instructions Indication:Fatigue Start:14-Feb-2017 Instruction Type:Provider Instructions for Treatment How to access health informa tion online Indication:Anxiety Start:24-Jan-2017 Instruction Type:Patient Education How to access health informa tion online - Detail Indication:Anxiety Start:24-Jan-2017 Instruction Type:Patient Education Patient Instructions Indication:Anxiety Start:24-Jan-2017 Instruction Type:Provider Instructions for Treatment How to access health informa tion online Indication:Benign essential hypertension Start:15-Mar-2016 Instruction Type:Patient Education How to access health informa tion online - Detail Indication:Benign essential hypertension Start:15-Mar-2016 Instruction Type:Patient Education Patient Instructions Indication:Benign essential hypertension Start:15-Mar-2016 Instruction Type:Provider Instructions for Treatment Patient Instructions Indication:Osteopenia Start:01-Mar-2016 Instruction Type:Provider Instructions for Treatment How to access health informa tion online Indication:Nonsmoker Start:24-Nov-2015 Instruction Type:Patient Education How to access health informa tion online - Detail Indication:Nonsmoker Start:24-Nov-2015 Instruction Type:Patient Education Patient Instructions Indication:Nonsmoker Start:24-Nov-2015 Instruction Type:Provider Instructions for Treatment How to access health informa tion online Indication:Preop examination Start:06-Oct-2015 Instruction Type:Patient Education How to access health informa tion online - Detail Indication:Preop examination Start:06-Oct-2015 Instruction Type:Patient Education Patient Instructions Indication:Preop examination Start:06-Oct-2015 Instruction Type:Provider Instructions for Treatment How to access health informa tion online Indication:Postmenopausal bleeding Start:07-Jun-2015 Instruction Type:Patient Education How to access health informa tion online - Detail Indication:Postmenopausal bleeding Start:07-Jun-2015 Instruction Type:Patient Education Patient Instructions Indication:Postmenopausal bleeding Start:07-Jun-2015 Instruction Type:Provider Instructions for Treatment Patient Instructions Indication:Benign essential hypertension Start:27-Jul-2014 Instruction Type:Provider Instructions for Treatment Patient Instructions Indication:Osteopenia Start:13-Aug-2013 Instruction Type:Provider Instructions for Treatment Patient Instructions Indication:Well woman exam Start:11-Jun-2013 Instruction Type:Provider Instructions for Treatment Patient Instructions Indication:Benign essential hypertension Start:20-May-2012 Instruction Type:Provider Instructions for Treatment Patient Instructions Indication:Benign essential hypertension Start:31-Jan-2012 Instruction Type:Provider Instructions for Treatment Patient Instructions Indication:Well woman exam Start:14-Jan-2012 Instruction Type:Provider Instructions for Treatment [facility]; [facility] Work Phone: Instructions* Name Dates Details Patient Instructions Indication:Smoker Start:01-Jan-2023 Instruction Type:Provider Instructions for Treatment How to Access Health Informa tion Online using Patient Portal and [employer]rd [employer] Apps Indication:Smoker Start:01-Jan-2023 Instruction Type:Patient Education Patient Instructions Indication:BMI 33.0-33.9,adult Start:18-Jun-2022 Instruction Type:Provider Instructions for Treatment How to Access Health Informa tion Online using Patient Portal and [employer]rd [employer] Apps Indication:BMI 33.0-33.9,adult Start:18-Jun-2022 Instruction Type:Patient Education Patient Instructions Indication:Smoker Start:12-Mar-2022 Instruction Type:Provider Instructions for Treatment How to Access Health Informa tion Online using Patient Portal and [employer]rd [employer] Apps Indication:Smoker Start:12-Mar-2022 Instruction Type:Patient Education Patient Instructions Indication:Smoker Start:01-Sep-2020 Instruction Type:Provider Instructions for Treatment How to Access Health Informa tion Online using Patient Portal and [employer]rd [employer] Apps Indication:Smoker Start:01-Sep-2020 Instruction Type:Patient Education Patient Instructions Indication:Abdominal pain, lower Start:21-Aug-2020 Instruction Type:Provider Instructions for Treatment How to Access Health Informa tion Online using Patient Portal and [employer]rd [employer] Apps Indication:Abdominal pain, lower Start:21-Aug-2020 Instruction Type:Patient Education Patient Instructions Indication:Smoker Start:07-Jul-2020 Instruction Type:Provider Instructions for Treatment How to Access Health Informa tion Online using Patient Portal and [employer]rd [employer] Apps Indication:Smoker Start:07-Jul-2020 Instruction Type:Patient Education Patient Instructions Indication:BMI 30.0-30.9,adult Start:26-Jun-2020 Instruction Type:Provider Instructions for Treatment How to Access Health Informa tion Online using Patient Portal and [employer]rd [employer] Apps Indication:BMI 30.0-30.9,adult Start:26-Jun-2020 Instruction Type:Patient Education Patient Instructions Indication:Smoker Start:18-Apr-2020 Instruction Type:Provider Instructions for Treatment How to Access Health Informa tion Online using Patient Portal and [employer]rd [employer] Apps Indication:Smoker Start:18-Apr-2020 Instruction Type:Patient Education Patient Instructions Indication:Smoker Start:11-Apr-2020 Instruction Type:Provider Instructions for Treatment How to Access Health Informa tion Online using Patient Portal and [employer]rd [employer] Apps Indication:Smoker Start:11-Apr-2020 Instruction Type:Patient Education How to access health informa tion online Indication:Pre-operative exam (Renamed from Encounter for pre-operative examination) Start:05-Aug-2018 Instruction Type:Patient Education How to access health informa tion online - Detail Indication:Pre-operative exam (Renamed from Encounter for pre-operative examination) Start:05-Aug-2018 Instruction Type:Patient Education Patient Instructions Indication:Pre-operative exam (Renamed from Encounter for pre-operative examination) Start:05-Aug-2018 Instruction Type:Provider Instructions for Treatment How to access health informa tion online Indication:Smoker Start:01-Dec-2017 Instruction Type:Patient Education How to access health informa tion online - Detail Indication:Smoker Start:01-Dec-2017 Instruction Type:Patient Education Patient Instructions Indication:Smoker Start:01-Dec-2017 Instruction Type:Provider Instructions for Treatment How to access health informa tion online Indication:Anxiety Start:26-Sep-2017 Instruction Type:Patient Education How to access health informa tion online - Detail Indication:Anxiety Start:26-Sep-2017 Instruction Type:Patient Education Patient Instructions Indication:Anxiety Start:26-Sep-2017 Instruction Type:Provider Instructions for Treatment How to access health informa tion online Indication:Hyperlipidemia Start:06-Jun-2017 Instruction Type:Patient Education How to access health informa tion online - Detail Indication:Hyperlipidemia Start:06-Jun-2017 Instruction Type:Patient Education Patient Instructions Indication:Body mass index (bmi) 29.0-29.9, adult Start:06-Jun-2017 Instruction Type:Provider Instructions for Treatment How to access health informa tion online Indication:Fatigue Start:14-Feb-2017 Instruction Type:Patient Education How to access health informa tion online - Detail Indication:Fatigue Start:14-Feb-2017 Instruction Type:Patient Education Patient Instructions Indication:Fatigue Start:14-Feb-2017 Instruction Type:Provider Instructions for Treatment How to access health informa tion online Indication:Anxiety Start:24-Jan-2017 Instruction Type:Patient Education How to access health informa tion online - Detail Indication:Anxiety Start:24-Jan-2017 Instruction Type:Patient Education Patient Instructions Indication:Anxiety Start:24-Jan-2017 Instruction Type:Provider Instructions for Treatment How to access health informa tion online Indication:Benign essential hypertension Start:15-Mar-2016 Instruction Type:Patient Education How to access health informa tion online - Detail Indication:Benign essential hypertension Start:15-Mar-2016 Instruction Type:Patient Education Patient Instructions Indication:Benign essential hypertension Start:15-Mar-2016 Instruction Type:Provider Instructions for Treatment Patient Instructions Indication:Osteopenia Start:01-Mar-2016 Instruction Type:Provider Instructions for Treatment How to access health informa tion online Indication:Nonsmoker Start:24-Nov-2015 Instruction Type:Patient Education How to access health informa tion online - Detail Indication:Nonsmoker Start:24-Nov-2015 Instruction Type:Patient Education Patient Instructions Indication:Nonsmoker Start:24-Nov-2015 Instruction Type:Provider Instructions for Treatment How to access health informa tion online Indication:Preop examination Start:06-Oct-2015 Instruction Type:Patient Education How to access health informa tion online - Detail Indication:Preop examination Start:06-Oct-2015 Instruction Type:Patient Education Patient Instructions Indication:Preop examination Start:06-Oct-2015 Instruction Type:Provider Instructions for Treatment How to access health informa tion online Indication:Postmenopausal bleeding Start:07-Jun-2015 Instruction Type:Patient Education How to access health informa tion online - Detail Indication:Postmenopausal bleeding Start:07-Jun-2015 Instruction Type:Patient Education Patient Instructions Indication:Postmenopausal bleeding Start:07-Jun-2015 Instruction Type:Provider Instructions for Treatment Patient Instructions Indication:Benign essential hypertension Start:27-Jul-2014 Instruction Type:Provider Instructions for Treatment Patient Instructions Indication:Osteopenia Start:13-Aug-2013 Instruction Type:Provider Instructions for Treatment Patient Instructions Indication:Well woman exam Start:11-Jun-2013 Instruction Type:Provider Instructions for Treatment Patient Instructions Indication:Benign essential hypertension Start:20-May-2012 Instruction Type:Provider Instructions for Treatment Patient Instructions Indication:Benign essential hypertension Start:31-Jan-2012 Instruction Type:Provider Instructions for Treatment Patient Instructions Indication:Well woman exam Start:14-Jan-2012 Instruction Type:Provider Instructions for Treatment [facility] Work Phone: Instructions* Name Dates Details Patient Instructions Indication:Smoker Start:01-Jan-2023 Instruction Type:Provider Instructions for Treatment How to Access Health Informa tion Online using Patient Portal and 3rd [employer] Apps Indication:Smoker Start:01-Jan-2023 Instruction Type:Patient Education Patient Instructions Indication:BMI 33.0-33.9,adult Start:18-Jun-2022 Instruction Type:Provider Instructions for Treatment How to Access Health Informa tion Online using Patient Portal and [employer]rd [employer] Apps Indication:BMI 33.0-33.9,adult Start:18-Jun-2022 Instruction Type:Patient Education Patient Instructions Indication:Smoker Start:12-Mar-2022 Instruction Type:Provider Instructions for Treatment How to Access Health Informa tion Online using Patient Portal and [employer]rd [employer] Apps Indication:Smoker Start:12-Mar-2022 Instruction Type:Patient Education Patient Instructions Indication:Smoker Start:01-Sep-2020 Instruction Type:Provider Instructions for Treatment How to Access Health Informa tion Online using Patient Portal and [employer]rd [employer] Apps Indication:Smoker Start:01-Sep-2020 Instruction Type:Patient Education Patient Instructions Indication:Abdominal pain, lower Start:21-Aug-2020 Instruction Type:Provider Instructions for Treatment How to Access Health Informa tion Online using Patient Portal and [employer]rd [employer] Apps Indication:Abdominal pain, lower Start:21-Aug-2020 Instruction Type:Patient Education Patient Instructions Indication:Smoker Start:07-Jul-2020 Instruction Type:Provider Instructions for Treatment How to Access Health Informa tion Online using Patient Portal and [employer]rd [employer] Apps Indication:Smoker Start:07-Jul-2020 Instruction Type:Patient Education Patient Instructions Indication:BMI 30.0-30.9,adult Start:26-Jun-2020 Instruction Type:Provider Instructions for Treatment How to Access Health Informa tion Online using Patient Portal and [employer]rd [employer] Apps Indication:BMI 30.0-30.9,adult Start:26-Jun-2020 Instruction Type:Patient Education Patient Instructions Indication:Smoker Start:18-Apr-2020 Instruction Type:Provider Instructions for Treatment How to Access Health Informa tion Online using Patient Portal and [employer]rd [employer] Apps Indication:Smoker Start:18-Apr-2020 Instruction Type:Patient Education Patient Instructions Indication:Smoker Start:11-Apr-2020 Instruction Type:Provider Instructions for Treatment How to Access Health Informa tion Online using Patient Portal and [employer]rd [employer] Apps Indication:Smoker Start:11-Apr-2020 Instruction Type:Patient Education How to access health informa tion online Indication:Pre-operative exam (Renamed from Encounter for pre-operative examination) Start:05-Aug-2018 Instruction Type:Patient Education How to access health informa tion online - Detail Indication:Pre-operative exam (Renamed from Encounter for pre-operative examination) Start:05-Aug-2018 Instruction Type:Patient Education Patient Instructions Indication:Pre-operative exam (Renamed from Encounter for pre-operative examination) Start:05-Aug-2018 Instruction Type:Provider Instructions for Treatment How to access health informa tion online Indication:Smoker Start:01-Dec-2017 Instruction Type:Patient Education How to access health informa tion online - Detail Indication:Smoker Start:01-Dec-2017 Instruction Type:Patient Education Patient Instructions Indication:Smoker Start:01-Dec-2017 Instruction Type:Provider Instructions for Treatment How to access health informa tion online Indication:Anxiety Start:26-Sep-2017 Instruction Type:Patient Education How to access health informa tion online - Detail Indication:Anxiety Start:26-Sep-2017 Instruction Type:Patient Education Patient Instructions Indication:Anxiety Start:26-Sep-2017 Instruction Type:Provider Instructions for Treatment How to access health informa tion online Indication:Hyperlipidemia Start:06-Jun-2017 Instruction Type:Patient Education How to access health informa tion online - Detail Indication:Hyperlipidemia Start:06-Jun-2017 Instruction Type:Patient Education Patient Instructions Indication:Body mass index (bmi) 29.0-29.9, adult Start:06-Jun-2017 Instruction Type:Provider Instructions for Treatment How to access health informa tion online Indication:Fatigue Start:14-Feb-2017 Instruction Type:Patient Education How to access health informa tion online - Detail Indication:Fatigue Start:14-Feb-2017 Instruction Type:Patient Education Patient Instructions Indication:Fatigue Start:14-Feb-2017 Instruction Type:Provider Instructions for Treatment How to access health informa tion online Indication:Anxiety Start:24-Jan-2017 Instruction Type:Patient Education How to access health informa tion online - Detail Indication:Anxiety Start:24-Jan-2017 Instruction Type:Patient Education Patient Instructions Indication:Anxiety Start:24-Jan-2017 Instruction Type:Provider Instructions for Treatment How to access health informa tion online Indication:Benign essential hypertension Start:15-Mar-2016 Instruction Type:Patient Education How to access health informa tion online - Detail Indication:Benign essential hypertension Start:15-Mar-2016 Instruction Type:Patient Education Patient Instructions Indication:Benign essential hypertension Start:15-Mar-2016 Instruction Type:Provider Instructions for Treatment Patient Instructions Indication:Osteopenia Start:01-Mar-2016 Instruction Type:Provider Instructions for Treatment How to access health informa tion online Indication:Nonsmoker Start:24-Nov-2015 Instruction Type:Patient Education How to access health informa tion online - Detail Indication:Nonsmoker Start:24-Nov-2015 Instruction Type:Patient Education Patient Instructions Indication:Nonsmoker Start:24-Nov-2015 Instruction Type:Provider Instructions for Treatment How to access health informa tion online Indication:Preop examination Start:06-Oct-2015 Instruction Type:Patient Education How to access health informa tion online - Detail Indication:Preop examination Start:06-Oct-2015 Instruction Type:Patient Education Patient Instructions Indication:Preop examination Start:06-Oct-2015 Instruction Type:Provider Instructions for Treatment How to access health informa tion online Indication:Postmenopausal bleeding Start:07-Jun-2015 Instruction Type:Patient Education How to access health informa tion online - Detail Indication:Postmenopausal bleeding Start:07-Jun-2015 Instruction Type:Patient Education Patient Instructions Indication:Postmenopausal bleeding Start:07-Jun-2015 Instruction Type:Provider Instructions for Treatment Patient Instructions Indication:Benign essential hypertension Start:27-Jul-2014 Instruction Type:Provider Instructions for Treatment Patient Instructions Indication:Osteopenia Start:13-Aug-2013 Instruction Type:Provider Instructions for Treatment Patient Instructions Indication:Well woman exam Start:11-Jun-2013 Instruction Type:Provider Instructions for Treatment Patient Instructions Indication:Benign essential hypertension Start:20-May-2012 Instruction Type:Provider Instructions for Treatment Patient Instructions Indication:Benign essential hypertension Start:31-Jan-2012 Instruction Type:Provider Instructions for Treatment Patient Instructions Indication:Well woman exam Start:14-Jan-2012 Instruction Type:Provider Instructions for Treatment [facility] Work Phone: Instructions* Name Dates Details Patient Instructions Indication:Smoker Start:01-Jan-2023 Instruction Type:Provider Instructions for Treatment How to Access Health Informa tion Online using Patient Portal and [employer]rd [employer] Apps Indication:Smoker Start:01-Jan-2023 Instruction Type:Patient Education Patient Instructions Indication:BMI 33.0-33.9,adult Start:18-Jun-2022 Instruction Type:Provider Instructions for Treatment How to Access Health Informa tion Online using Patient Portal and [employer]rd [employer] Apps Indication:BMI 33.0-33.9,adult Start:18-Jun-2022 Instruction Type:Patient Education Patient Instructions Indication:Smoker Start:12-Mar-2022 Instruction Type:Provider Instructions for Treatment How to Access Health Informa tion Online using Patient Portal and [employer]rd [employer] Apps Indication:Smoker Start:12-Mar-2022 Instruction Type:Patient Education Patient Instructions Indication:Smoker Start:01-Sep-2020 Instruction Type:Provider Instructions for Treatment How to Access Health Informa tion Online using Patient Portal and [employer]rd [employer] Apps Indication:Smoker Start:01-Sep-2020 Instruction Type:Patient Education Patient Instructions Indication:Abdominal pain, lower Start:21-Aug-2020 Instruction Type:Provider Instructions for Treatment How to Access Health Informa tion Online using Patient Portal and [employer]rd [employer] Apps Indication:Abdominal pain, lower Start:21-Aug-2020 Instruction Type:Patient Education Patient Instructions Indication:Smoker Start:07-Jul-2020 Instruction Type:Provider Instructions for Treatment How to Access Health Informa tion Online using Patient Portal and [employer]rd [employer] Apps Indication:Smoker Start:07-Jul-2020 Instruction Type:Patient Education Patient Instructions Indication:BMI 30.0-30.9,adult Start:26-Jun-2020 Instruction Type:Provider Instructions for Treatment How to Access Health Informa tion Online using Patient Portal and [employer]rd [employer] Apps Indication:BMI 30.0-30.9,adult Start:26-Jun-2020 Instruction Type:Patient Education Patient Instructions Indication:Smoker Start:18-Apr-2020 Instruction Type:Provider Instructions for Treatment How to Access Health Informa tion Online using Patient Portal and [employer]rd [employer] Apps Indication:Smoker Start:18-Apr-2020 Instruction Type:Patient Education Patient Instructions Indication:Smoker Start:11-Apr-2020 Instruction Type:Provider Instructions for Treatment How to Access Health Informa tion Online using Patient Portal and [employer]rd [employer] Apps Indication:Smoker Start:11-Apr-2020 Instruction Type:Patient Education How to access health informa tion online Indication:Pre-operative exam (Renamed from Encounter for pre-operative examination) Start:05-Aug-2018 Instruction Type:Patient Education How to access health informa tion online - Detail Indication:Pre-operative exam (Renamed from Encounter for pre-operative examination) Start:05-Aug-2018 Instruction Type:Patient Education Patient Instructions Indication:Pre-operative exam (Renamed from Encounter for pre-operative examination) Start:05-Aug-2018 Instruction Type:Provider Instructions for Treatment How to access health informa tion online Indication:Smoker Start:01-Dec-2017 Instruction Type:Patient Education How to access health informa tion online - Detail Indication:Smoker Start:01-Dec-2017 Instruction Type:Patient Education Patient Instructions Indication:Smoker Start:01-Dec-2017 Instruction Type:Provider Instructions for Treatment How to access health informa tion online Indication:Anxiety Start:26-Sep-2017 Instruction Type:Patient Education How to access health informa tion online - Detail Indication:Anxiety Start:26-Sep-2017 Instruction Type:Patient Education Patient Instructions Indication:Anxiety Start:26-Sep-2017 Instruction Type:Provider Instructions for Treatment How to access health informa tion online Indication:Hyperlipidemia Start:06-Jun-2017 Instruction Type:Patient Education How to access health informa tion online - Detail Indication:Hyperlipidemia Start:06-Jun-2017 Instruction Type:Patient Education Patient Instructions Indication:Body mass index (bmi) 29.0-29.9, adult Start:06-Jun-2017 Instruction Type:Provider Instructions for Treatment How to access health informa tion online Indication:Fatigue Start:14-Feb-2017 Instruction Type:Patient Education How to access health informa tion online - Detail Indication:Fatigue Start:14-Feb-2017 Instruction Type:Patient Education Patient Instructions Indication:Fatigue Start:14-Feb-2017 Instruction Type:Provider Instructions for Treatment How to access health informa tion online Indication:Anxiety Start:24-Jan-2017 Instruction Type:Patient Education How to access health informa tion online - Detail Indication:Anxiety Start:24-Jan-2017 Instruction Type:Patient Education Patient Instructions Indication:Anxiety Start:24-Jan-2017 Instruction Type:Provider Instructions for Treatment How to access health informa tion online Indication:Benign essential hypertension Start:15-Mar-2016 Instruction Type:Patient Education How to access health informa tion online - Detail Indication:Benign essential hypertension Start:15-Mar-2016 Instruction Type:Patient Education Patient Instructions Indication:Benign essential hypertension Start:15-Mar-2016 Instruction Type:Provider Instructions for Treatment Patient Instructions Indication:Osteopenia Start:01-Mar-2016 Instruction Type:Provider Instructions for Treatment How to access health informa tion online Indication:Nonsmoker Start:24-Nov-2015 Instruction Type:Patient Education How to access health informa tion online - Detail Indication:Nonsmoker Start:24-Nov-2015 Instruction Type:Patient Education Patient Instructions Indication:Nonsmoker Start:24-Nov-2015 Instruction Type:Provider Instructions for Treatment How to access health informa tion online Indication:Preop examination Start:06-Oct-2015 Instruction Type:Patient Education How to access health informa tion online - Detail Indication:Preop examination Start:06-Oct-2015 Instruction Type:Patient Education Patient Instructions Indication:Preop examination Start:06-Oct-2015 Instruction Type:Provider Instructions for Treatment How to access health informa tion online Indication:Postmenopausal bleeding Start:07-Jun-2015 Instruction Type:Patient Education How to access health informa tion online - Detail Indication:Postmenopausal bleeding Start:07-Jun-2015 Instruction Type:Patient Education Patient Instructions Indication:Postmenopausal bleeding Start:07-Jun-2015 Instruction Type:Provider Instructions for Treatment Patient Instructions Indication:Benign essential hypertension Start:27-Jul-2014 Instruction Type:Provider Instructions for Treatment Patient Instructions Indication:Osteopenia Start:13-Aug-2013 Instruction Type:Provider Instructions for Treatment Patient Instructions Indication:Well woman exam Start:11-Jun-2013 Instruction Type:Provider Instructions for Treatment Patient Instructions Indication:Benign essential hypertension Start:20-May-2012 Instruction Type:Provider Instructions for Treatment Patient Instructions Indication:Benign essential hypertension Start:31-Jan-2012 Instruction Type:Provider Instructions for Treatment Patient Instructions Indication:Well woman exam Start:14-Jan-2012 Instruction Type:Provider Instructions for Treatment [facility] Work Phone: reason for referral (narrative)No [facility]: Family History Unknown Family Member Name Dates Details Brother 1 Comments:HTN, obese, smoker Status:Active Father Comments:CAD, bypass at 59, smoker, HTN Status:Active Mother Comments:Hypothyroidism, cho linergic urticaria Status:Active Unknown Family Member Name Dates Details Brother 1 Comments:HTN, obese, smoker Status:Active Father Comments:CAD, bypass at 59, smoker, HTN Status:Active Mother Comments:Hypothyroidism, cho linergic urticaria Status:Active Unknown Family Member Name Dates Details Brother 1 Comments:HTN, obese, smoker Status:Active Father Comments:CAD, bypass at 59, smoker, HTN Status:Active Mother Comments:Hypothyroidism, cho linergic urticaria Status:Active Unknown Family Member Name Dates Details Brother 1 Comments:HTN, obese, smoker Status:Active Father Comments:CAD, bypass at 59, smoker, HTN Status:Active Mother Comments:Hypothyroidism, cho linergic urticaria Status:Active Unknown Family Member Name Dates Details Brother 1 Comments:HTN, obese, smoker Status:Active Father Comments:CAD, bypass at 59, smoker, HTN Status:Active Mother Comments:Hypothyroidism, cho linergic urticaria Status:Active Unknown Family Member Name Dates Details Brother 1 Comments:HTN, obese, smoker Status:Active Father Comments:CAD, bypass at 59, smoker, HTN Status:Active Mother Comments:Hypothyroidism, cho linergic urticaria Status:Active Unknown Family Member Name Dates Details Brother 1 Comments:HTN, obese, smoker Status:Active Father Comments:CAD, bypass at 59, smoker, HTN Status:Active Mother Comments:Hypothyroidism, cho linergic urticaria Status:Active Unknown Family Member Name Dates Details Brother 1 Comments:HTN, obese, smoker Status:Active Father Comments:CAD, bypass at 59, smoker, HTN Status:Active Mother Comments:Hypothyroidism, cho linergic urticaria Status:Active Unknown Family Member Name Dates Details Brother 1 Comments:HTN, obese, smoker Status:Active Father Comments:CAD, bypass at 59, smoker, HTN Status:Active Mother Comments:Hypothyroidism, cho linergic urticaria Status:Active Unknown Family Member Name Dates Details Brother 1 Comments:HTN, obese, smoker Status:Active Father Comments:CAD, bypass at 59, smoker, HTN Status:Active Mother Comments:Hypothyroidism, cho linergic urticaria Status:Active Unknown Family Member Name Dates Details Brother 1 Comments:HTN, obese, smoker Status:Active Father Comments:CAD, bypass at 59, smoker, HTN Status:Active Mother Comments:Hypothyroidism, cho linergic urticaria Status:Active Unknown Family Member Name Dates Details Brother 1 Comments:HTN, obese, smoker Status:Active Father Comments:CAD, bypass at 59, smoker, HTN Status:Active Mother Comments:Hypothyroidism, cho linergic urticaria Status:Active Unknown Family Member Name Dates Details Brother 1 Comments:HTN, obese, smoker Status:Active Father Comments:CAD, bypass at 59, smoker, HTN Status:Active Mother Comments:Hypothyroidism, cho linergic urticaria Status:Active Unknown Family Member Name Dates Details Brother 1 Comments:HTN, obese, smoker Status:Active Father Comments:CAD, bypass at 59, smoker, HTN Status:Active Mother Comments:Hypothyroidism, cho linergic urticaria Status:Active Unknown Family Member Name Dates Details Brother 1 Comments:HTN, obese, smoker Status:Active Father Comments:CAD, bypass at 59, smoker, HTN Status:Active Mother Comments:Hypothyroidism, cho linergic urticaria Status:Active Unknown Family Member Name Dates Details Brother 1 Comments:HTN, obese, smoker Status:Active Father Comments:CAD, bypass at 59, smoker, HTN Status:Active Mother Comments:Hypothyroidism, cho linergic urticaria Status:Active Unknown Family Member Name Dates Details Brother 1 Comments:HTN, obese, smoker Status:Active Father Comments:CAD, bypass at 59, smoker, HTN Status:Active Mother Comments:Hypothyroidism, cho linergic urticaria Status:Active Unknown Family Member Name Dates Details Brother 1 Comments:HTN, obese, smoker Status:Active Father Comments:CAD, bypass at 59, smoker, HTN Status:Active Mother Comments:Hypothyroidism, cho linergic urticaria Status:Active Unknown Family Member Name Dates Details Brother 1 Comments:HTN, obese, smoker Status:Active Father Comments:CAD, bypass at 59, smoker, HTN Status:Active Mother Comments:Hypothyroidism, cho linergic urticaria Status:Active Unknown Family Member Name Dates Details Brother 1 Comments:HTN, obese, smoker Status:Active Father Comments:CAD, bypass at 59, smoker, HTN Status:Active Mother Comments:Hypothyroidism, cho linergic urticaria Status:Active Unknown Family Member Name Dates Details Brother 1 Comments:HTN, obese, smoker Status:Active Father Comments:CAD, bypass at 59, smoker, HTN Status:Active Mother Comments:Hypothyroidism, cho linergic urticaria Status:Active Unknown Family Member Name Dates Details Brother 1 Comments:HTN, obese, smoker Status:Active Father Comments:CAD, bypass at 59, smoker, HTN Status:Active Mother Comments:Hypothyroidism, cho linergic urticaria Status:Active Relationship Condition Age at Onset Recorded Date/T deepika Not Specified Cerebrovascular accident (CVA) Unknown father Coronary artery disease Unknown Hypertension Unknown brother Hypertension Unknown Coronary artery disease Unknown Myocardial infarction Unknown Unknown Family Member Name Dates Details Brother 1 Comments:HTN, obese, smoker Status:Active Father Comments:CAD, bypass at 59, smoker, HTN Status:Active Mother Comments:Hypothyroidism, cho linergic urticaria Status:Active Unknown Family Member Name Dates Details Brother 1 Comments:HTN, obese, smoker Status:Active Father Comments:CAD, bypass at 59, smoker, HTN Status:Active Mother Comments:Hypothyroidism, cho linergic urticaria Status:Active Unknown Family Member Name Dates Details Brother 1 Comments:HTN, obese, smoker Status:Active Father Comments:CAD, bypass at 59, smoker, HTN Status:Active Mother Comments:Hypothyroidism, cho linergic urticaria Status:Active Unknown Family Member Name Dates Details Brother 1 Comments:HTN, obese, smoker Status:Active Father Comments:CAD, bypass at 59, smoker, HTN Status:Active Mother Comments:Hypothyroidism, cho linergic urticaria Status:Active Unknown Family Member Name Dates Details Brother 1 Comments:HTN, obese, smoker Status:Active Father Comments:CAD, bypass at 59, smoker, HTN Status:Active Mother Comments:Hypothyroidism, cho linergic urticaria Status:Active Unknown Family Member Name Dates Details Brother 1 Comments:HTN, obese, smoker Status:Active Father Comments:CAD, bypass at 59, smoker, HTN Status:Active Mother Comments:Hypothyroidism, cho linergic urticaria Status:Active Unknown Family Member Name Dates Details Brother 1 Comments:HTN, obese, smoker Status:Active Father Comments:CAD, bypass at 59, smoker, HTN Status:Active Mother Comments:Hypothyroidism, cho linergic urticaria Status:Active Relationship Condition Age at Onset Recorded Date/T deepika Not Specified Cerebrovascular accident (CVA) Unknown father Coronary artery disease Unknown Hypertension Unknown brother Hypertension Unknown Coronary artery disease Unknown Myocardial infarction Unknown grandmother Malignant neoplasm of breast Unknown Not Specified Malignant neoplasm of breast Unknown Unknown Family Member Name Dates Details Brother 1 Comments:HTN, obese, smoker Status:Active Father Comments:CAD, bypass at 59, smoker, HTN Status:Active Mother Comments:Hypothyroidism, cho linergic urticaria Status:Active Unknown Family Member Name Dates Details Brother 1 Comments:HTN, obese, smoker Status:Active Father Comments:CAD, bypass at 59, smoker, HTN Status:Active Mother Comments:Hypothyroidism, cho linergic urticaria Status:Active Unknown Family Member Name Dates Details Brother 1 Comments:HTN, obese, smoker Status:Active Father Comments:CAD, bypass at 59, smoker, HTN Status:Active Mother Comments:Hypothyroidism, cho linergic urticaria Status:Active Unknown Family Member Name Dates Details Brother 1 Comments:HTN, obese, smoker Status:Active Father Comments:CAD, bypass at 59, smoker, HTN Status:Active Mother Comments:Hypothyroidism, cho linergic urticaria Status:Active Relationship Condition Age at Onset Recorded Date/T deepika Not Specified Cerebrovascular accident (CVA) Unknown father Coronary artery disease Unknown Hypertension Unknown brother Hypertension Unknown Coronary artery disease Unknown Myocardial infarction Unknown grandmother Malignant neoplasm of breast Unknown unrelated friend Malignant neoplasm of breast Unknown Instructions Name Dates Details Smoker : How to access healt h information online Indication:Smoker Smoker : How to access healt h information online - Detail Indication:Smoker Smoker : Patient Instruction s Indication:Smoker Anxiety : How to access heal th information online Indication:Anxiety Anxiety : How to access heal th information online - Detail Indication:Anxiety Anxiety : Patient Instructio ns Indication:Anxiety Hyperlipidemia : How to acce ss health information online Indication:Hyperlipidemia Hyperlipidemia : How to acce ss health information online - Detail Indication:Hyperlipidemia Body mass index (bmi) 29.0-2 9.9, adult : Patient Instructions Indication:Body mass index (bmi) 29.0-29.9, adult Fatigue : How to access heal th information online Indication:Fatigue Fatigue : How to access heal th information online - Detail Indication:Fatigue Fatigue : Patient Instructio ns Indication:Fatigue Benign essential hypertensio n : How to access health information online Indication:Benign essential hypertension Benign essential hypertensio n : How to access health information online - Detail Indication:Benign essential hypertension Benign essential hypertensio n : Patient Instructions Indication:Benign essential hypertension Osteopenia : Patient Instruc tions Indication:Osteopenia Nonsmoker : How to access he alth information online Indication:Nonsmoker Nonsmoker : How to access he alth information online - Detail Indication:Nonsmoker Nonsmoker : Patient Instruct ions Indication:Nonsmoker Preop examination : How to a ccess health information online Indication:Preop examination Preop examination : How to a ccess health information online - Detail Indication:Preop examination Preop examination : Patient Instructions Indication:Preop examination Postmenopausal bleeding : Ho w to access health information online Indication:Postmenopausal bleeding Postmenopausal bleeding : Ho w to access health information online - Detail Indication:Postmenopausal bleeding Postmenopausal bleeding : Pa tient Instructions Indication:Postmenopausal bleeding Well woman exam : Patient In structions Indication:Well woman exam Name Dates Details How to access health informa tion online Indication:Pre-operative exam (Renamed from Encounter for pre-operative examination) Start:05-Aug-2018 Instruction Type:Patient Education How to access health informa tion online - Detail Indication:Pre-operative exam (Renamed from Encounter for pre-operative examination) Start:05-Aug-2018 Instruction Type:Patient Education Patient Instructions Indication:Pre-operative exam (Renamed from Encounter for pre-operative examination) Start:05-Aug-2018 Instruction Type:Provider Instructions for Treatment How to access health informa tion online Indication:Smoker Start:01-Dec-2017 Instruction Type:Patient Education How to access health informa tion online - Detail Indication:Smoker Start:01-Dec-2017 Instruction Type:Patient Education Patient Instructions Indication:Smoker Start:01-Dec-2017 Instruction Type:Provider Instructions for Treatment How to access health informa tion online Indication:Anxiety Start:26-Sep-2017 Instruction Type:Patient Education How to access health informa tion online - Detail Indication:Anxiety Start:26-Sep-2017 Instruction Type:Patient Education Patient Instructions Indication:Anxiety Start:26-Sep-2017 Instruction Type:Provider Instructions for Treatment How to access health informa tion online Indication:Hyperlipidemia Start:06-Jun-2017 Instruction Type:Patient Education How to access health informa tion online - Detail Indication:Hyperlipidemia Start:06-Jun-2017 Instruction Type:Patient Education Patient Instructions Indication:Body mass index (bmi) 29.0-29.9, adult Start:06-Jun-2017 Instruction Type:Provider Instructions for Treatment How to access health informa tion online Indication:Fatigue Start:14-Feb-2017 Instruction Type:Patient Education How to access health informa tion online - Detail Indication:Fatigue Start:14-Feb-2017 Instruction Type:Patient Education Patient Instructions Indication:Fatigue Start:14-Feb-2017 Instruction Type:Provider Instructions for Treatment How to access health informa tion online Indication:Anxiety Start:24-Jan-2017 Instruction Type:Patient Education How to access health informa tion online - Detail Indication:Anxiety Start:24-Jan-2017 Instruction Type:Patient Education Patient Instructions Indication:Anxiety Start:24-Jan-2017 Instruction Type:Provider Instructions for Treatment How to access health informa tion online Indication:Benign essential hypertension Start:15-Mar-2016 Instruction Type:Patient Education How to access health informa tion online - Detail Indication:Benign essential hypertension Start:15-Mar-2016 Instruction Type:Patient Education Patient Instructions Indication:Benign essential hypertension Start:15-Mar-2016 Instruction Type:Provider Instructions for Treatment Patient Instructions Indication:Osteopenia Start:01-Mar-2016 Instruction Type:Provider Instructions for Treatment How to access health informa tion online Indication:Nonsmoker Start:24-Nov-2015 Instruction Type:Patient Education How to access health informa tion online - Detail Indication:Nonsmoker Start:24-Nov-2015 Instruction Type:Patient Education Patient Instructions Indication:Nonsmoker Start:24-Nov-2015 Instruction Type:Provider Instructions for Treatment How to access health informa tion online Indication:Preop examination Start:06-Oct-2015 Instruction Type:Patient Education How to access health informa tion online - Detail Indication:Preop examination Start:06-Oct-2015 Instruction Type:Patient Education Patient Instructions Indication:Preop examination Start:06-Oct-2015 Instruction Type:Provider Instructions for Treatment How to access health informa tion online Indication:Postmenopausal bleeding Start:07-Jun-2015 Instruction Type:Patient Education How to access health informa tion online - Detail Indication:Postmenopausal bleeding Start:07-Jun-2015 Instruction Type:Patient Education Patient Instructions Indication:Postmenopausal bleeding Start:07-Jun-2015 Instruction Type:Provider Instructions for Treatment Patient Instructions Indication:Benign essential hypertension Start:27-Jul-2014 Instruction Type:Provider Instructions for Treatment Patient Instructions Indication:Osteopenia Start:13-Aug-2013 Instruction Type:Provider Instructions for Treatment Patient Instructions Indication:Well woman exam Start:11-Jun-2013 Instruction Type:Provider Instructions for Treatment Patient Instructions Indication:Benign essential hypertension Start:20-May-2012 Instruction Type:Provider Instructions for Treatment Patient Instructions Indication:Benign essential hypertension Start:31-Jan-2012 Instruction Type:Provider Instructions for Treatment Patient Instructions Indication:Well woman exam Start:14-Jan-2012 Instruction Type:Provider Instructions for Treatment Name Dates Details How to access health informa tion online Indication:Pre-operative exam (Renamed from Encounter for pre-operative examination) Start:05-Aug-2018 Instruction Type:Patient Education How to access health informa tion online - Detail Indication:Pre-operative exam (Renamed from Encounter for pre-operative examination) Start:05-Aug-2018 Instruction Type:Patient Education Patient Instructions Indication:Pre-operative exam (Renamed from Encounter for pre-operative examination) Start:05-Aug-2018 Instruction Type:Provider Instructions for Treatment How to access health informa tion online Indication:Smoker Start:01-Dec-2017 Instruction Type:Patient Education How to access health informa tion online - Detail Indication:Smoker Start:01-Dec-2017 Instruction Type:Patient Education Patient Instructions Indication:Smoker Start:01-Dec-2017 Instruction Type:Provider Instructions for Treatment How to access health informa tion online Indication:Anxiety Start:26-Sep-2017 Instruction Type:Patient Education How to access health informa tion online - Detail Indication:Anxiety Start:26-Sep-2017 Instruction Type:Patient Education Patient Instructions Indication:Anxiety Start:26-Sep-2017 Instruction Type:Provider Instructions for Treatment How to access health informa tion online Indication:Hyperlipidemia Start:06-Jun-2017 Instruction Type:Patient Education How to access health informa tion online - Detail Indication:Hyperlipidemia Start:06-Jun-2017 Instruction Type:Patient Education Patient Instructions Indication:Body mass index (bmi) 29.0-29.9, adult Start:06-Jun-2017 Instruction Type:Provider Instructions for Treatment How to access health informa tion online Indication:Fatigue Start:14-Feb-2017 Instruction Type:Patient Education How to access health informa tion online - Detail Indication:Fatigue Start:14-Feb-2017 Instruction Type:Patient Education Patient Instructions Indication:Fatigue Start:14-Feb-2017 Instruction Type:Provider Instructions for Treatment How to access health informa tion online Indication:Anxiety Start:24-Jan-2017 Instruction Type:Patient Education How to access health informa tion online - Detail Indication:Anxiety Start:24-Jan-2017 Instruction Type:Patient Education Patient Instructions Indication:Anxiety Start:24-Jan-2017 Instruction Type:Provider Instructions for Treatment How to access health informa tion online Indication:Benign essential hypertension Start:15-Mar-2016 Instruction Type:Patient Education How to access health informa tion online - Detail Indication:Benign essential hypertension Start:15-Mar-2016 Instruction Type:Patient Education Patient Instructions Indication:Benign essential hypertension Start:15-Mar-2016 Instruction Type:Provider Instructions for Treatment Patient Instructions Indication:Osteopenia Start:01-Mar-2016 Instruction Type:Provider Instructions for Treatment How to access health informa tion online Indication:Nonsmoker Start:24-Nov-2015 Instruction Type:Patient Education How to access health informa tion online - Detail Indication:Nonsmoker Start:24-Nov-2015 Instruction Type:Patient Education Patient Instructions Indication:Nonsmoker Start:24-Nov-2015 Instruction Type:Provider Instructions for Treatment How to access health informa tion online Indication:Preop examination Start:06-Oct-2015 Instruction Type:Patient Education How to access health informa tion online - Detail Indication:Preop examination Start:06-Oct-2015 Instruction Type:Patient Education Patient Instructions Indication:Preop examination Start:06-Oct-2015 Instruction Type:Provider Instructions for Treatment How to access health informa tion online Indication:Postmenopausal bleeding Start:07-Jun-2015 Instruction Type:Patient Education How to access health informa tion online - Detail Indication:Postmenopausal bleeding Start:07-Jun-2015 Instruction Type:Patient Education Patient Instructions Indication:Postmenopausal bleeding Start:07-Jun-2015 Instruction Type:Provider Instructions for Treatment Patient Instructions Indication:Benign essential hypertension Start:27-Jul-2014 Instruction Type:Provider Instructions for Treatment Patient Instructions Indication:Osteopenia Start:13-Aug-2013 Instruction Type:Provider Instructions for Treatment Patient Instructions Indication:Well woman exam Start:11-Jun-2013 Instruction Type:Provider Instructions for Treatment Patient Instructions Indication:Benign essential hypertension Start:20-May-2012 Instruction Type:Provider Instructions for Treatment Patient Instructions Indication:Benign essential hypertension Start:31-Jan-2012 Instruction Type:Provider Instructions for Treatment Patient Instructions Indication:Well woman exam Start:14-Jan-2012 Instruction Type:Provider Instructions for Treatment Name Dates Details How to access health informa tion online Indication:Pre-operative exam (Renamed from Encounter for pre-operative examination) Start:05-Aug-2018 Instruction Type:Patient Education How to access health informa tion online - Detail Indication:Pre-operative exam (Renamed from Encounter for pre-operative examination) Start:05-Aug-2018 Instruction Type:Patient Education Patient Instructions Indication:Pre-operative exam (Renamed from Encounter for pre-operative examination) Start:05-Aug-2018 Instruction Type:Provider Instructions for Treatment How to access health informa tion online Indication:Smoker Start:01-Dec-2017 Instruction Type:Patient Education How to access health informa tion online - Detail Indication:Smoker Start:01-Dec-2017 Instruction Type:Patient Education Patient Instructions Indication:Smoker Start:01-Dec-2017 Instruction Type:Provider Instructions for Treatment How to access health informa tion online Indication:Anxiety Start:26-Sep-2017 Instruction Type:Patient Education How to access health informa tion online - Detail Indication:Anxiety Start:26-Sep-2017 Instruction Type:Patient Education Patient Instructions Indication:Anxiety Start:26-Sep-2017 Instruction Type:Provider Instructions for Treatment How to access health informa tion online Indication:Hyperlipidemia Start:06-Jun-2017 Instruction Type:Patient Education How to access health informa tion online - Detail Indication:Hyperlipidemia Start:06-Jun-2017 Instruction Type:Patient Education Patient Instructions Indication:Body mass index (bmi) 29.0-29.9, adult Start:06-Jun-2017 Instruction Type:Provider Instructions for Treatment How to access health informa tion online Indication:Fatigue Start:14-Feb-2017 Instruction Type:Patient Education How to access health informa tion online - Detail Indication:Fatigue Start:14-Feb-2017 Instruction Type:Patient Education Patient Instructions Indication:Fatigue Start:14-Feb-2017 Instruction Type:Provider Instructions for Treatment How to access health informa tion online Indication:Anxiety Start:24-Jan-2017 Instruction Type:Patient Education How to access health informa tion online - Detail Indication:Anxiety Start:24-Jan-2017 Instruction Type:Patient Education Patient Instructions Indication:Anxiety Start:24-Jan-2017 Instruction Type:Provider Instructions for Treatment How to access health informa tion online Indication:Benign essential hypertension Start:15-Mar-2016 Instruction Type:Patient Education How to access health informa tion online - Detail Indication:Benign essential hypertension Start:15-Mar-2016 Instruction Type:Patient Education Patient Instructions Indication:Benign essential hypertension Start:15-Mar-2016 Instruction Type:Provider Instructions for Treatment Patient Instructions Indication:Osteopenia Start:01-Mar-2016 Instruction Type:Provider Instructions for Treatment How to access health informa tion online Indication:Nonsmoker Start:24-Nov-2015 Instruction Type:Patient Education How to access health informa tion online - Detail Indication:Nonsmoker Start:24-Nov-2015 Instruction Type:Patient Education Patient Instructions Indication:Nonsmoker Start:24-Nov-2015 Instruction Type:Provider Instructions for Treatment How to access health informa tion online Indication:Preop examination Start:06-Oct-2015 Instruction Type:Patient Education How to access health informa tion online - Detail Indication:Preop examination Start:06-Oct-2015 Instruction Type:Patient Education Patient Instructions Indication:Preop examination Start:06-Oct-2015 Instruction Type:Provider Instructions for Treatment How to access health informa tion online Indication:Postmenopausal bleeding Start:07-Jun-2015 Instruction Type:Patient Education How to access health informa tion online - Detail Indication:Postmenopausal bleeding Start:07-Jun-2015 Instruction Type:Patient Education Patient Instructions Indication:Postmenopausal bleeding Start:07-Jun-2015 Instruction Type:Provider Instructions for Treatment Patient Instructions Indication:Benign essential hypertension Start:27-Jul-2014 Instruction Type:Provider Instructions for Treatment Patient Instructions Indication:Osteopenia Start:13-Aug-2013 Instruction Type:Provider Instructions for Treatment Patient Instructions Indication:Well woman exam Start:11-Jun-2013 Instruction Type:Provider Instructions for Treatment Patient Instructions Indication:Benign essential hypertension Start:20-May-2012 Instruction Type:Provider Instructions for Treatment Patient Instructions Indication:Benign essential hypertension Start:31-Jan-2012 Instruction Type:Provider Instructions for Treatment Patient Instructions Indication:Well woman exam Start:14-Jan-2012 Instruction Type:Provider Instructions for Treatment Name Dates Details How to access health informa tion online Indication:Pre-operative exam (Renamed from Encounter for pre-operative examination) Start:05-Aug-2018 Instruction Type:Patient Education How to access health informa tion online - Detail Indication:Pre-operative exam (Renamed from Encounter for pre-operative examination) Start:05-Aug-2018 Instruction Type:Patient Education Patient Instructions Indication:Pre-operative exam (Renamed from Encounter for pre-operative examination) Start:05-Aug-2018 Instruction Type:Provider Instructions for Treatment How to access health informa tion online Indication:Smoker Start:01-Dec-2017 Instruction Type:Patient Education How to access health informa tion online - Detail Indication:Smoker Start:01-Dec-2017 Instruction Type:Patient Education Patient Instructions Indication:Smoker Start:01-Dec-2017 Instruction Type:Provider Instructions for Treatment How to access health informa tion online Indication:Anxiety Start:26-Sep-2017 Instruction Type:Patient Education How to access health informa tion online - Detail Indication:Anxiety Start:26-Sep-2017 Instruction Type:Patient Education Patient Instructions Indication:Anxiety Start:26-Sep-2017 Instruction Type:Provider Instructions for Treatment How to access health informa tion online Indication:Hyperlipidemia Start:06-Jun-2017 Instruction Type:Patient Education How to access health informa tion online - Detail Indication:Hyperlipidemia Start:06-Jun-2017 Instruction Type:Patient Education Patient Instructions Indication:Body mass index (bmi) 29.0-29.9, adult Start:06-Jun-2017 Instruction Type:Provider Instructions for Treatment How to access health informa tion online Indication:Fatigue Start:14-Feb-2017 Instruction Type:Patient Education How to access health informa tion online - Detail Indication:Fatigue Start:14-Feb-2017 Instruction Type:Patient Education Patient Instructions Indication:Fatigue Start:14-Feb-2017 Instruction Type:Provider Instructions for Treatment How to access health informa tion online Indication:Anxiety Start:24-Jan-2017 Instruction Type:Patient Education How to access health informa tion online - Detail Indication:Anxiety Start:24-Jan-2017 Instruction Type:Patient Education Patient Instructions Indication:Anxiety Start:24-Jan-2017 Instruction Type:Provider Instructions for Treatment How to access health informa tion online Indication:Benign essential hypertension Start:15-Mar-2016 Instruction Type:Patient Education How to access health informa tion online - Detail Indication:Benign essential hypertension Start:15-Mar-2016 Instruction Type:Patient Education Patient Instructions Indication:Benign essential hypertension Start:15-Mar-2016 Instruction Type:Provider Instructions for Treatment Patient Instructions Indication:Osteopenia Start:01-Mar-2016 Instruction Type:Provider Instructions for Treatment How to access health informa tion online Indication:Nonsmoker Start:24-Nov-2015 Instruction Type:Patient Education How to access health informa tion online - Detail Indication:Nonsmoker Start:24-Nov-2015 Instruction Type:Patient Education Patient Instructions Indication:Nonsmoker Start:24-Nov-2015 Instruction Type:Provider Instructions for Treatment How to access health informa tion online Indication:Preop examination Start:06-Oct-2015 Instruction Type:Patient Education How to access health informa tion online - Detail Indication:Preop examination Start:06-Oct-2015 Instruction Type:Patient Education Patient Instructions Indication:Preop examination Start:06-Oct-2015 Instruction Type:Provider Instructions for Treatment How to access health informa tion online Indication:Postmenopausal bleeding Start:07-Jun-2015 Instruction Type:Patient Education How to access health informa tion online - Detail Indication:Postmenopausal bleeding Start:07-Jun-2015 Instruction Type:Patient Education Patient Instructions Indication:Postmenopausal bleeding Start:07-Jun-2015 Instruction Type:Provider Instructions for Treatment Patient Instructions Indication:Benign essential hypertension Start:27-Jul-2014 Instruction Type:Provider Instructions for Treatment Patient Instructions Indication:Osteopenia Start:13-Aug-2013 Instruction Type:Provider Instructions for Treatment Patient Instructions Indication:Well woman exam Start:11-Jun-2013 Instruction Type:Provider Instructions for Treatment Patient Instructions Indication:Benign essential hypertension Start:20-May-2012 Instruction Type:Provider Instructions for Treatment Patient Instructions Indication:Benign essential hypertension Start:31-Jan-2012 Instruction Type:Provider Instructions for Treatment Patient Instructions Indication:Well woman exam Start:14-Jan-2012 Instruction Type:Provider Instructions for Treatment Name Dates Details Patient Instructions Indication:Smoker Start:18-Apr-2020 Instruction Type:Provider Instructions for Treatment How to Access Health Informa tion Online using Patient Portal and [employer]rd [employer] Apps Indication:Smoker Start:18-Apr-2020 Instruction Type:Patient Education Patient Instructions Indication:Smoker Start:11-Apr-2020 Instruction Type:Provider Instructions for Treatment How to Access Health Informa tion Online using Patient Portal and [employer]rd [employer] Apps Indication:Smoker Start:11-Apr-2020 Instruction Type:Patient Education How to access health informa tion online Indication:Pre-operative exam (Renamed from Encounter for pre-operative examination) Start:05-Aug-2018 Instruction Type:Patient Education How to access health informa tion online - Detail Indication:Pre-operative exam (Renamed from Encounter for pre-operative examination) Start:05-Aug-2018 Instruction Type:Patient Education Patient Instructions Indication:Pre-operative exam (Renamed from Encounter for pre-operative examination) Start:05-Aug-2018 Instruction Type:Provider Instructions for Treatment How to access health informa tion online Indication:Smoker Start:01-Dec-2017 Instruction Type:Patient Education How to access health informa tion online - Detail Indication:Smoker Start:01-Dec-2017 Instruction Type:Patient Education Patient Instructions Indication:Smoker Start:01-Dec-2017 Instruction Type:Provider Instructions for Treatment How to access health informa tion online Indication:Anxiety Start:26-Sep-2017 Instruction Type:Patient Education How to access health informa tion online - Detail Indication:Anxiety Start:26-Sep-2017 Instruction Type:Patient Education Patient Instructions Indication:Anxiety Start:26-Sep-2017 Instruction Type:Provider Instructions for Treatment How to access health informa tion online Indication:Hyperlipidemia Start:06-Jun-2017 Instruction Type:Patient Education How to access health informa tion online - Detail Indication:Hyperlipidemia Start:06-Jun-2017 Instruction Type:Patient Education Patient Instructions Indication:Body mass index (bmi) 29.0-29.9, adult Start:06-Jun-2017 Instruction Type:Provider Instructions for Treatment How to access health informa tion online Indication:Fatigue Start:14-Feb-2017 Instruction Type:Patient Education How to access health informa tion online - Detail Indication:Fatigue Start:14-Feb-2017 Instruction Type:Patient Education Patient Instructions Indication:Fatigue Start:14-Feb-2017 Instruction Type:Provider Instructions for Treatment How to access health informa tion online Indication:Anxiety Start:24-Jan-2017 Instruction Type:Patient Education How to access health informa tion online - Detail Indication:Anxiety Start:24-Jan-2017 Instruction Type:Patient Education Patient Instructions Indication:Anxiety Start:24-Jan-2017 Instruction Type:Provider Instructions for Treatment How to access health informa tion online Indication:Benign essential hypertension Start:15-Mar-2016 Instruction Type:Patient Education How to access health informa tion online - Detail Indication:Benign essential hypertension Start:15-Mar-2016 Instruction Type:Patient Education Patient Instructions Indication:Benign essential hypertension Start:15-Mar-2016 Instruction Type:Provider Instructions for Treatment Patient Instructions Indication:Osteopenia Start:01-Mar-2016 Instruction Type:Provider Instructions for Treatment How to access health informa tion online Indication:Nonsmoker Start:24-Nov-2015 Instruction Type:Patient Education How to access health informa tion online - Detail Indication:Nonsmoker Start:24-Nov-2015 Instruction Type:Patient Education Patient Instructions Indication:Nonsmoker Start:24-Nov-2015 Instruction Type:Provider Instructions for Treatment How to access health informa tion online Indication:Preop examination Start:06-Oct-2015 Instruction Type:Patient Education How to access health informa tion online - Detail Indication:Preop examination Start:06-Oct-2015 Instruction Type:Patient Education Patient Instructions Indication:Preop examination Start:06-Oct-2015 Instruction Type:Provider Instructions for Treatment How to access health informa tion online Indication:Postmenopausal bleeding Start:07-Jun-2015 Instruction Type:Patient Education How to access health informa tion online - Detail Indication:Postmenopausal bleeding Start:07-Jun-2015 Instruction Type:Patient Education Patient Instructions Indication:Postmenopausal bleeding Start:07-Jun-2015 Instruction Type:Provider Instructions for Treatment Patient Instructions Indication:Benign essential hypertension Start:27-Jul-2014 Instruction Type:Provider Instructions for Treatment Patient Instructions Indication:Osteopenia Start:13-Aug-2013 Instruction Type:Provider Instructions for Treatment Patient Instructions Indication:Well woman exam Start:11-Jun-2013 Instruction Type:Provider Instructions for Treatment Patient Instructions Indication:Benign essential hypertension Start:20-May-2012 Instruction Type:Provider Instructions for Treatment Patient Instructions Indication:Benign essential hypertension Start:31-Jan-2012 Instruction Type:Provider Instructions for Treatment Patient Instructions Indication:Well woman exam Start:14-Jan-2012 Instruction Type:Provider Instructions for Treatment Name Dates Details Smoker : How to access healt h information online Indication:Smoker Smoker : How to access healt h information online - Detail Indication:Smoker Smoker : Patient Instruction s Indication:Smoker Anxiety : How to access heal th information online Indication:Anxiety Anxiety : How to access heal th information online - Detail Indication:Anxiety Anxiety : Patient Instructio ns Indication:Anxiety Hyperlipidemia : How to acce ss health information online Indication:Hyperlipidemia Hyperlipidemia : How to acce ss health information online - Detail Indication:Hyperlipidemia Body mass index (bmi) 29.0-2 9.9, adult : Patient Instructions Indication:Body mass index (bmi) 29.0-29.9, adult Fatigue : How to access heal th information online Indication:Fatigue Fatigue : How to access heal th information online - Detail Indication:Fatigue Fatigue : Patient Instructio ns Indication:Fatigue Benign essential hypertensio n : How to access health information online Indication:Benign essential hypertension Benign essential hypertensio n : How to access health information online - Detail Indication:Benign essential hypertension Benign essential hypertensio n : Patient Instructions Indication:Benign essential hypertension Osteopenia : Patient Instruc tions Indication:Osteopenia Nonsmoker : How to access he alth information online Indication:Nonsmoker Nonsmoker : How to access he alth information online - Detail Indication:Nonsmoker Nonsmoker : Patient Instruct ions Indication:Nonsmoker Preop examination : How to a ccess health information online Indication:Preop examination Preop examination : How to a ccess health information online - Detail Indication:Preop examination Preop examination : Patient Instructions Indication:Preop examination Postmenopausal bleeding : Ho w to access health information online Indication:Postmenopausal bleeding Postmenopausal bleeding : Ho w to access health information online - Detail Indication:Postmenopausal bleeding Postmenopausal bleeding : Pa tient Instructions Indication:Postmenopausal bleeding Well woman exam : Patient In structions Indication:Well woman exam Name Dates Details Patient Instructions Indication:Smoker Start:11-Apr-2020 Instruction Type:Provider Instructions for Treatment How to Access Health Informa tion Online using Patient Portal and [employer]rd [employer] Apps Indication:Smoker Start:11-Apr-2020 Instruction Type:Patient Education How to access health informa tion online Indication:Pre-operative exam (Renamed from Encounter for pre-operative examination) Start:05-Aug-2018 Instruction Type:Patient Education How to access health informa tion online - Detail Indication:Pre-operative exam (Renamed from Encounter for pre-operative examination) Start:05-Aug-2018 Instruction Type:Patient Education Patient Instructions Indication:Pre-operative exam (Renamed from Encounter for pre-operative examination) Start:05-Aug-2018 Instruction Type:Provider Instructions for Treatment How to access health informa tion online Indication:Smoker Start:01-Dec-2017 Instruction Type:Patient Education How to access health informa tion online - Detail Indication:Smoker Start:01-Dec-2017 Instruction Type:Patient Education Patient Instructions Indication:Smoker Start:01-Dec-2017 Instruction Type:Provider Instructions for Treatment How to access health informa tion online Indication:Anxiety Start:26-Sep-2017 Instruction Type:Patient Education How to access health informa tion online - Detail Indication:Anxiety Start:26-Sep-2017 Instruction Type:Patient Education Patient Instructions Indication:Anxiety Start:26-Sep-2017 Instruction Type:Provider Instructions for Treatment How to access health informa tion online Indication:Hyperlipidemia Start:06-Jun-2017 Instruction Type:Patient Education How to access health informa tion online - Detail Indication:Hyperlipidemia Start:06-Jun-2017 Instruction Type:Patient Education Patient Instructions Indication:Body mass index (bmi) 29.0-29.9, adult Start:06-Jun-2017 Instruction Type:Provider Instructions for Treatment How to access health informa tion online Indication:Fatigue Start:14-Feb-2017 Instruction Type:Patient Education How to access health informa tion online - Detail Indication:Fatigue Start:14-Feb-2017 Instruction Type:Patient Education Patient Instructions Indication:Fatigue Start:14-Feb-2017 Instruction Type:Provider Instructions for Treatment How to access health informa tion online Indication:Anxiety Start:24-Jan-2017 Instruction Type:Patient Education How to access health informa tion online - Detail Indication:Anxiety Start:24-Jan-2017 Instruction Type:Patient Education Patient Instructions Indication:Anxiety Start:24-Jan-2017 Instruction Type:Provider Instructions for Treatment How to access health informa tion online Indication:Benign essential hypertension Start:15-Mar-2016 Instruction Type:Patient Education How to access health informa tion online - Detail Indication:Benign essential hypertension Start:15-Mar-2016 Instruction Type:Patient Education Patient Instructions Indication:Benign essential hypertension Start:15-Mar-2016 Instruction Type:Provider Instructions for Treatment Patient Instructions Indication:Osteopenia Start:01-Mar-2016 Instruction Type:Provider Instructions for Treatment How to access health informa tion online Indication:Nonsmoker Start:24-Nov-2015 Instruction Type:Patient Education How to access health informa tion online - Detail Indication:Nonsmoker Start:24-Nov-2015 Instruction Type:Patient Education Patient Instructions Indication:Nonsmoker Start:24-Nov-2015 Instruction Type:Provider Instructions for Treatment How to access health informa tion online Indication:Preop examination Start:06-Oct-2015 Instruction Type:Patient Education How to access health informa tion online - Detail Indication:Preop examination Start:06-Oct-2015 Instruction Type:Patient Education Patient Instructions Indication:Preop examination Start:06-Oct-2015 Instruction Type:Provider Instructions for Treatment How to access health informa tion online Indication:Postmenopausal bleeding Start:07-Jun-2015 Instruction Type:Patient Education How to access health informa tion online - Detail Indication:Postmenopausal bleeding Start:07-Jun-2015 Instruction Type:Patient Education Patient Instructions Indication:Postmenopausal bleeding Start:07-Jun-2015 Instruction Type:Provider Instructions for Treatment Patient Instructions Indication:Benign essential hypertension Start:27-Jul-2014 Instruction Type:Provider Instructions for Treatment Patient Instructions Indication:Osteopenia Start:13-Aug-2013 Instruction Type:Provider Instructions for Treatment Patient Instructions Indication:Well woman exam Start:11-Jun-2013 Instruction Type:Provider Instructions for Treatment Patient Instructions Indication:Benign essential hypertension Start:20-May-2012 Instruction Type:Provider Instructions for Treatment Patient Instructions Indication:Benign essential hypertension Start:31-Jan-2012 Instruction Type:Provider Instructions for Treatment Patient Instructions Indication:Well woman exam Start:14-Jan-2012 Instruction Type:Provider Instructions for Treatment Name Dates Details Patient Instructions Indication:BMI 30.0-30.9,adult Start:26-Jun-2020 Instruction Type:Provider Instructions for Treatment How to Access Health Informa tion Online using Patient Portal and [employer]rd [employer] Apps Indication:BMI 30.0-30.9,adult Start:26-Jun-2020 Instruction Type:Patient Education Patient Instructions Indication:Smoker Start:18-Apr-2020 Instruction Type:Provider Instructions for Treatment How to Access Health Informa tion Online using Patient Portal and [employer]rd [employer] Apps Indication:Smoker Start:18-Apr-2020 Instruction Type:Patient Education Patient Instructions Indication:Smoker Start:11-Apr-2020 Instruction Type:Provider Instructions for Treatment How to Access Health Informa tion Online using Patient Portal and [employer]rd [employer] Apps Indication:Smoker Start:11-Apr-2020 Instruction Type:Patient Education How to access health informa tion online Indication:Pre-operative exam (Renamed from Encounter for pre-operative examination) Start:05-Aug-2018 Instruction Type:Patient Education How to access health informa tion online - Detail Indication:Pre-operative exam (Renamed from Encounter for pre-operative examination) Start:05-Aug-2018 Instruction Type:Patient Education Patient Instructions Indication:Pre-operative exam (Renamed from Encounter for pre-operative examination) Start:05-Aug-2018 Instruction Type:Provider Instructions for Treatment How to access health informa tion online Indication:Smoker Start:01-Dec-2017 Instruction Type:Patient Education How to access health informa tion online - Detail Indication:Smoker Start:01-Dec-2017 Instruction Type:Patient Education Patient Instructions Indication:Smoker Start:01-Dec-2017 Instruction Type:Provider Instructions for Treatment How to access health informa tion online Indication:Anxiety Start:26-Sep-2017 Instruction Type:Patient Education How to access health informa tion online - Detail Indication:Anxiety Start:26-Sep-2017 Instruction Type:Patient Education Patient Instructions Indication:Anxiety Start:26-Sep-2017 Instruction Type:Provider Instructions for Treatment How to access health informa tion online Indication:Hyperlipidemia Start:06-Jun-2017 Instruction Type:Patient Education How to access health informa tion online - Detail Indication:Hyperlipidemia Start:06-Jun-2017 Instruction Type:Patient Education Patient Instructions Indication:Body mass index (bmi) 29.0-29.9, adult Start:06-Jun-2017 Instruction Type:Provider Instructions for Treatment How to access health informa tion online Indication:Fatigue Start:14-Feb-2017 Instruction Type:Patient Education How to access health informa tion online - Detail Indication:Fatigue Start:14-Feb-2017 Instruction Type:Patient Education Patient Instructions Indication:Fatigue Start:14-Feb-2017 Instruction Type:Provider Instructions for Treatment How to access health informa tion online Indication:Anxiety Start:24-Jan-2017 Instruction Type:Patient Education How to access health informa tion online - Detail Indication:Anxiety Start:24-Jan-2017 Instruction Type:Patient Education Patient Instructions Indication:Anxiety Start:24-Jan-2017 Instruction Type:Provider Instructions for Treatment How to access health informa tion online Indication:Benign essential hypertension Start:15-Mar-2016 Instruction Type:Patient Education How to access health informa tion online - Detail Indication:Benign essential hypertension Start:15-Mar-2016 Instruction Type:Patient Education Patient Instructions Indication:Benign essential hypertension Start:15-Mar-2016 Instruction Type:Provider Instructions for Treatment Patient Instructions Indication:Osteopenia Start:01-Mar-2016 Instruction Type:Provider Instructions for Treatment How to access health informa tion online Indication:Nonsmoker Start:24-Nov-2015 Instruction Type:Patient Education How to access health informa tion online - Detail Indication:Nonsmoker Start:24-Nov-2015 Instruction Type:Patient Education Patient Instructions Indication:Nonsmoker Start:24-Nov-2015 Instruction Type:Provider Instructions for Treatment How to access health informa tion online Indication:Preop examination Start:06-Oct-2015 Instruction Type:Patient Education How to access health informa tion online - Detail Indication:Preop examination Start:06-Oct-2015 Instruction Type:Patient Education Patient Instructions Indication:Preop examination Start:06-Oct-2015 Instruction Type:Provider Instructions for Treatment How to access health informa tion online Indication:Postmenopausal bleeding Start:07-Jun-2015 Instruction Type:Patient Education How to access health informa tion online - Detail Indication:Postmenopausal bleeding Start:07-Jun-2015 Instruction Type:Patient Education Patient Instructions Indication:Postmenopausal bleeding Start:07-Jun-2015 Instruction Type:Provider Instructions for Treatment Patient Instructions Indication:Benign essential hypertension Start:27-Jul-2014 Instruction Type:Provider Instructions for Treatment Patient Instructions Indication:Osteopenia Start:13-Aug-2013 Instruction Type:Provider Instructions for Treatment Patient Instructions Indication:Well woman exam Start:11-Jun-2013 Instruction Type:Provider Instructions for Treatment Patient Instructions Indication:Benign essential hypertension Start:20-May-2012 Instruction Type:Provider Instructions for Treatment Patient Instructions Indication:Benign essential hypertension Start:31-Jan-2012 Instruction Type:Provider Instructions for Treatment Patient Instructions Indication:Well woman exam Start:14-Jan-2012 Instruction Type:Provider Instructions for Treatment Name Dates Details Patient Instructions Indication:BMI 30.0-30.9,adult Start:26-Jun-2020 Instruction Type:Provider Instructions for Treatment How to Access Health Informa tion Online using Patient Portal and [employer] Apps Indication:BMI 30.0-30.9,adult Start:26-Jun-2020 Instruction Type:Patient Education Patient Instructions Indication:Smoker Start:18-Apr-2020 Instruction Type:Provider Instructions for Treatment How to Access Health Informa tion Online using Patient Portal and [employer]rd [employer] Apps Indication:Smoker Start:18-Apr-2020 Instruction Type:Patient Education Patient Instructions Indication:Smoker Start:11-Apr-2020 Instruction Type:Provider Instructions for Treatment How to Access Health Informa tion Online using Patient Portal and [employer]rd [employer] Apps Indication:Smoker Start:11-Apr-2020 Instruction Type:Patient Education How to access health informa tion online Indication:Pre-operative exam (Renamed from Encounter for pre-operative examination) Start:05-Aug-2018 Instruction Type:Patient Education How to access health informa tion online - Detail Indication:Pre-operative exam (Renamed from Encounter for pre-operative examination) Start:05-Aug-2018 Instruction Type:Patient Education Patient Instructions Indication:Pre-operative exam (Renamed from Encounter for pre-operative examination) Start:05-Aug-2018 Instruction Type:Provider Instructions for Treatment How to access health informa tion online Indication:Smoker Start:01-Dec-2017 Instruction Type:Patient Education How to access health informa tion online - Detail Indication:Smoker Start:01-Dec-2017 Instruction Type:Patient Education Patient Instructions Indication:Smoker Start:01-Dec-2017 Instruction Type:Provider Instructions for Treatment How to access health informa tion online Indication:Anxiety Start:26-Sep-2017 Instruction Type:Patient Education How to access health informa tion online - Detail Indication:Anxiety Start:26-Sep-2017 Instruction Type:Patient Education Patient Instructions Indication:Anxiety Start:26-Sep-2017 Instruction Type:Provider Instructions for Treatment How to access health informa tion online Indication:Hyperlipidemia Start:06-Jun-2017 Instruction Type:Patient Education How to access health informa tion online - Detail Indication:Hyperlipidemia Start:06-Jun-2017 Instruction Type:Patient Education Patient Instructions Indication:Body mass index (bmi) 29.0-29.9, adult Start:06-Jun-2017 Instruction Type:Provider Instructions for Treatment How to access health informa tion online Indication:Fatigue Start:14-Feb-2017 Instruction Type:Patient Education How to access health informa tion online - Detail Indication:Fatigue Start:14-Feb-2017 Instruction Type:Patient Education Patient Instructions Indication:Fatigue Start:14-Feb-2017 Instruction Type:Provider Instructions for Treatment How to access health informa tion online Indication:Anxiety Start:24-Jan-2017 Instruction Type:Patient Education How to access health informa tion online - Detail Indication:Anxiety Start:24-Jan-2017 Instruction Type:Patient Education Patient Instructions Indication:Anxiety Start:24-Jan-2017 Instruction Type:Provider Instructions for Treatment How to access health informa tion online Indication:Benign essential hypertension Start:15-Mar-2016 Instruction Type:Patient Education How to access health informa tion online - Detail Indication:Benign essential hypertension Start:15-Mar-2016 Instruction Type:Patient Education Patient Instructions Indication:Benign essential hypertension Start:15-Mar-2016 Instruction Type:Provider Instructions for Treatment Patient Instructions Indication:Osteopenia Start:01-Mar-2016 Instruction Type:Provider Instructions for Treatment How to access health informa tion online Indication:Nonsmoker Start:24-Nov-2015 Instruction Type:Patient Education How to access health informa tion online - Detail Indication:Nonsmoker Start:24-Nov-2015 Instruction Type:Patient Education Patient Instructions Indication:Nonsmoker Start:24-Nov-2015 Instruction Type:Provider Instructions for Treatment How to access health informa tion online Indication:Preop examination Start:06-Oct-2015 Instruction Type:Patient Education How to access health informa tion online - Detail Indication:Preop examination Start:06-Oct-2015 Instruction Type:Patient Education Patient Instructions Indication:Preop examination Start:06-Oct-2015 Instruction Type:Provider Instructions for Treatment How to access health informa tion online Indication:Postmenopausal bleeding Start:07-Jun-2015 Instruction Type:Patient Education How to access health informa tion online - Detail Indication:Postmenopausal bleeding Start:07-Jun-2015 Instruction Type:Patient Education Patient Instructions Indication:Postmenopausal bleeding Start:07-Jun-2015 Instruction Type:Provider Instructions for Treatment Patient Instructions Indication:Benign essential hypertension Start:27-Jul-2014 Instruction Type:Provider Instructions for Treatment Patient Instructions Indication:Osteopenia Start:13-Aug-2013 Instruction Type:Provider Instructions for Treatment Patient Instructions Indication:Well woman exam Start:11-Jun-2013 Instruction Type:Provider Instructions for Treatment Patient Instructions Indication:Benign essential hypertension Start:20-May-2012 Instruction Type:Provider Instructions for Treatment Patient Instructions Indication:Benign essential hypertension Start:31-Jan-2012 Instruction Type:Provider Instructions for Treatment Patient Instructions Indication:Well woman exam Start:14-Jan-2012 Instruction Type:Provider Instructions for Treatment Name Dates Details How to access health informa tion online Indication:Pre-operative exam (Renamed from Encounter for pre-operative examination) Start:05-Aug-2018 Instruction Type:Patient Education How to access health informa tion online - Detail Indication:Pre-operative exam (Renamed from Encounter for pre-operative examination) Start:05-Aug-2018 Instruction Type:Patient Education Patient Instructions Indication:Pre-operative exam (Renamed from Encounter for pre-operative examination) Start:05-Aug-2018 Instruction Type:Provider Instructions for Treatment How to access health informa tion online Indication:Smoker Start:01-Dec-2017 Instruction Type:Patient Education How to access health informa tion online - Detail Indication:Smoker Start:01-Dec-2017 Instruction Type:Patient Education Patient Instructions Indication:Smoker Start:01-Dec-2017 Instruction Type:Provider Instructions for Treatment How to access health informa tion online Indication:Anxiety Start:26-Sep-2017 Instruction Type:Patient Education How to access health informa tion online - Detail Indication:Anxiety Start:26-Sep-2017 Instruction Type:Patient Education Patient Instructions Indication:Anxiety Start:26-Sep-2017 Instruction Type:Provider Instructions for Treatment How to access health informa tion online Indication:Hyperlipidemia Start:06-Jun-2017 Instruction Type:Patient Education How to access health informa tion online - Detail Indication:Hyperlipidemia Start:06-Jun-2017 Instruction Type:Patient Education Patient Instructions Indication:Body mass index (bmi) 29.0-29.9, adult Start:06-Jun-2017 Instruction Type:Provider Instructions for Treatment How to access health informa tion online Indication:Fatigue Start:14-Feb-2017 Instruction Type:Patient Education How to access health informa tion online - Detail Indication:Fatigue Start:14-Feb-2017 Instruction Type:Patient Education Patient Instructions Indication:Fatigue Start:14-Feb-2017 Instruction Type:Provider Instructions for Treatment How to access health informa tion online Indication:Anxiety Start:24-Jan-2017 Instruction Type:Patient Education How to access health informa tion online - Detail Indication:Anxiety Start:24-Jan-2017 Instruction Type:Patient Education Patient Instructions Indication:Anxiety Start:24-Jan-2017 Instruction Type:Provider Instructions for Treatment How to access health informa tion online Indication:Benign essential hypertension Start:15-Mar-2016 Instruction Type:Patient Education How to access health informa tion online - Detail Indication:Benign essential hypertension Start:15-Mar-2016 Instruction Type:Patient Education Patient Instructions Indication:Benign essential hypertension Start:15-Mar-2016 Instruction Type:Provider Instructions for Treatment Patient Instructions Indication:Osteopenia Start:01-Mar-2016 Instruction Type:Provider Instructions for Treatment How to access health informa tion online Indication:Nonsmoker Start:24-Nov-2015 Instruction Type:Patient Education How to access health informa tion online - Detail Indication:Nonsmoker Start:24-Nov-2015 Instruction Type:Patient Education Patient Instructions Indication:Nonsmoker Start:24-Nov-2015 Instruction Type:Provider Instructions for Treatment How to access health informa tion online Indication:Preop examination Start:06-Oct-2015 Instruction Type:Patient Education How to access health informa tion online - Detail Indication:Preop examination Start:06-Oct-2015 Instruction Type:Patient Education Patient Instructions Indication:Preop examination Start:06-Oct-2015 Instruction Type:Provider Instructions for Treatment How to access health informa tion online Indication:Postmenopausal bleeding Start:07-Jun-2015 Instruction Type:Patient Education How to access health informa tion online - Detail Indication:Postmenopausal bleeding Start:07-Jun-2015 Instruction Type:Patient Education Patient Instructions Indication:Postmenopausal bleeding Start:07-Jun-2015 Instruction Type:Provider Instructions for Treatment Patient Instructions Indication:Benign essential hypertension Start:27-Jul-2014 Instruction Type:Provider Instructions for Treatment Patient Instructions Indication:Osteopenia Start:13-Aug-2013 Instruction Type:Provider Instructions for Treatment Patient Instructions Indication:Well woman exam Start:11-Jun-2013 Instruction Type:Provider Instructions for Treatment Patient Instructions Indication:Benign essential hypertension Start:20-May-2012 Instruction Type:Provider Instructions for Treatment Patient Instructions Indication:Benign essential hypertension Start:31-Jan-2012 Instruction Type:Provider Instructions for Treatment Patient Instructions Indication:Well woman exam Start:14-Jan-2012 Instruction Type:Provider Instructions for Treatment Name Dates Details Patient Instructions Indication:Smoker Start:07-Jul-2020 Instruction Type:Provider Instructions for Treatment How to Access Health Informa tion Online using Patient Portal and [employer] Indication:Smoker Start:07-Jul-2020 Instruction Type:Patient Education Patient Instructions Indication:BMI 30.0-30.9,adult Start:26-Jun-2020 Instruction Type:Provider Instructions for Treatment How to Access Health Informa tion Online using Patient Portal and [employer] Apps Indication:BMI 30.0-30.9,adult Start:26-Jun-2020 Instruction Type:Patient Education Patient Instructions Indication:Smoker Start:18-Apr-2020 Instruction Type:Provider Instructions for Treatment How to Access Health Informa tion Online using Patient Portal and [employer]rd [employer] Apps Indication:Smoker Start:18-Apr-2020 Instruction Type:Patient Education Patient Instructions Indication:Smoker Start:11-Apr-2020 Instruction Type:Provider Instructions for Treatment How to Access Health Informa tion Online using Patient Portal and [employer]rd [employer] Apps Indication:Smoker Start:11-Apr-2020 Instruction Type:Patient Education How to access health informa tion online Indication:Pre-operative exam (Renamed from Encounter for pre-operative examination) Start:05-Aug-2018 Instruction Type:Patient Education How to access health informa tion online - Detail Indication:Pre-operative exam (Renamed from Encounter for pre-operative examination) Start:05-Aug-2018 Instruction Type:Patient Education Patient Instructions Indication:Pre-operative exam (Renamed from Encounter for pre-operative examination) Start:05-Aug-2018 Instruction Type:Provider Instructions for Treatment How to access health informa tion online Indication:Smoker Start:01-Dec-2017 Instruction Type:Patient Education How to access health informa tion online - Detail Indication:Smoker Start:01-Dec-2017 Instruction Type:Patient Education Patient Instructions Indication:Smoker Start:01-Dec-2017 Instruction Type:Provider Instructions for Treatment How to access health informa tion online Indication:Anxiety Start:26-Sep-2017 Instruction Type:Patient Education How to access health informa tion online - Detail Indication:Anxiety Start:26-Sep-2017 Instruction Type:Patient Education Patient Instructions Indication:Anxiety Start:26-Sep-2017 Instruction Type:Provider Instructions for Treatment How to access health informa tion online Indication:Hyperlipidemia Start:06-Jun-2017 Instruction Type:Patient Education How to access health informa tion online - Detail Indication:Hyperlipidemia Start:06-Jun-2017 Instruction Type:Patient Education Patient Instructions Indication:Body mass index (bmi) 29.0-29.9, adult Start:06-Jun-2017 Instruction Type:Provider Instructions for Treatment How to access health informa tion online Indication:Fatigue Start:14-Feb-2017 Instruction Type:Patient Education How to access health informa tion online - Detail Indication:Fatigue Start:14-Feb-2017 Instruction Type:Patient Education Patient Instructions Indication:Fatigue Start:14-Feb-2017 Instruction Type:Provider Instructions for Treatment How to access health informa tion online Indication:Anxiety Start:24-Jan-2017 Instruction Type:Patient Education How to access health informa tion online - Detail Indication:Anxiety Start:24-Jan-2017 Instruction Type:Patient Education Patient Instructions Indication:Anxiety Start:24-Jan-2017 Instruction Type:Provider Instructions for Treatment How to access health informa tion online Indication:Benign essential hypertension Start:15-Mar-2016 Instruction Type:Patient Education How to access health informa tion online - Detail Indication:Benign essential hypertension Start:15-Mar-2016 Instruction Type:Patient Education Patient Instructions Indication:Benign essential hypertension Start:15-Mar-2016 Instruction Type:Provider Instructions for Treatment Patient Instructions Indication:Osteopenia Start:01-Mar-2016 Instruction Type:Provider Instructions for Treatment How to access health informa tion online Indication:Nonsmoker Start:24-Nov-2015 Instruction Type:Patient Education How to access health informa tion online - Detail Indication:Nonsmoker Start:24-Nov-2015 Instruction Type:Patient Education Patient Instructions Indication:Nonsmoker Start:24-Nov-2015 Instruction Type:Provider Instructions for Treatment How to access health informa tion online Indication:Preop examination Start:06-Oct-2015 Instruction Type:Patient Education How to access health informa tion online - Detail Indication:Preop examination Start:06-Oct-2015 Instruction Type:Patient Education Patient Instructions Indication:Preop examination Start:06-Oct-2015 Instruction Type:Provider Instructions for Treatment How to access health informa tion online Indication:Postmenopausal bleeding Start:07-Jun-2015 Instruction Type:Patient Education How to access health informa tion online - Detail Indication:Postmenopausal bleeding Start:07-Jun-2015 Instruction Type:Patient Education Patient Instructions Indication:Postmenopausal bleeding Start:07-Jun-2015 Instruction Type:Provider Instructions for Treatment Patient Instructions Indication:Benign essential hypertension Start:27-Jul-2014 Instruction Type:Provider Instructions for Treatment Patient Instructions Indication:Osteopenia Start:13-Aug-2013 Instruction Type:Provider Instructions for Treatment Patient Instructions Indication:Well woman exam Start:11-Jun-2013 Instruction Type:Provider Instructions for Treatment Patient Instructions Indication:Benign essential hypertension Start:20-May-2012 Instruction Type:Provider Instructions for Treatment Patient Instructions Indication:Benign essential hypertension Start:31-Jan-2012 Instruction Type:Provider Instructions for Treatment Patient Instructions Indication:Well woman exam Start:14-Jan-2012 Instruction Type:Provider Instructions for Treatment Chief Complaint and Reason for Visit Chief Complaint SCREENING Chief Complaint SCREENING 1 Y FU E-ORDER Reason for Visit Sinus tachycardia Essential (primary) hypertension Chief Complaint CONGESTION SCREENING Reason for Visit Shingles Chief Complaint SCREENING VERTIGO RX HERE Annual (GALLERY INTERN) 1 Y FU E ORDERS Reason for Visit Atrophic vaginitis Family history of breast cancer Encounter for routine gynecological examination Fatigue Essential (primary) hypertension WILSON (dyspnea on exertion) Sinus tachycardia Chief Complaint Admit Date 9 M FU September 17, 2024 7:58a m Reason for Visit Admit Date Essential (primary) hypertension September 7:58am Sinus tachycardia September 17, 2024 7:58a m Advance Directives Advance Directive Response Recorded Date/ Time Advance Directives No October 19 6 1:23pm Living Will No August 04, 2018 11:54am Power of Pattern Maker Programer No August 04 11:54am Advance Directive Response Recorded Date/ Time Advance Directives No October 19 1:23pm Living Will No January 29 10:49am Power of Pattern Maker Programer No January 29, 2022 10:49am Advance Directive Response Recorded Date/ Time Advance Directives No October 19 6 12:23pm Living Will No January 29 9:49am Power of Pattern Maker Programer No January 29, 2022 9:49am Advance Directive Response Recorded Date/ Time Advance Directives No August 24 9:42am Summary Purpose Additional Source Comments Goals (unrecognized section and content) Goals may be documented in a n alternate sectionGoals may be documented in an alternate sectionGoals may be documented in an alternate sectionGoals may be documented in an alternate sectionGoals may be documented in an alternate section INFORMATION SOURCE (unrecogn ized section and content) DATE CREATED AUTHOR 06/19/2022 [facility] DATE CREATED AUTHOR 'S ORGANIZ ATRULA 09/18/2024 [facility] Care Teams (unrecognized sec tion and content) Team Status: Active Member Role Status Dates Hortencia Flores RADIO PERFORMER, RADIO PERFORMER-C Family Provider Active Katerin Cotton , RADIO PERFORMER-C Primary Care Provider Active Team Status: Inactive Member Role Status Dates Katerin Cotton , RADIO PERFORMER-C Primary Care Provider, Referring Provider Active Jed WHITFIELD, PA Attending Provider Active Team Status: Inactive Member Role Status Dates Katerin Cotton , RADIO PERFORMER-C Primary Care Provider Active Radha Reid RADIO PERFORMER, RADIO PERFORMER-C Attending Provider, Referring Provider Active Team Status: Inactive Member Role Status Dates Katerin Cotton , RADIO PERFORMER-C Primary Care Provider, Referring Provider Active Radha Reid RADIO PERFORMER, RADIO PERFORMER-C Attending Provider Active Team Status: Inactive Member Role Status Dates Katerin Cotton , RADIO PERFORMER-C Primary Care Provider, Referring Provider Active Leigh Amador RADIO PERFORMER, RADIO PERFORMER-C Attending Provider Active Team Status: Inactive Member Role Status Dates Katerin Cotton , RADIO PERFORMER-C Primary Care Provi rachell, Attending Provider, Referring Provider Active Team Status: Inactive Member Role Status Dates Katerin Cotton , RADIO PERFORMER-C Primary Care Provider Active Leigh Amador NP, RADIO PERFORMER-C Attending Provider, Referring P rae Active Team Status: Inactive Member Role Status Dates Katerin Cotton , RADIO PERFORMER-C Primary Care Provider Active Start: September 17, 2024 End: September 17, 2024 Katerin Cotton , RADIO PERFORMER-C Referring Provider Active Start: September 17, 2024 End: September 17, 2024 Ellen WHITFIELD, PA Attending Provider Active Start: September 17, 2024 End: September 17, 2024 FOR RECORDS PERTAINING TO PATIENTS WHO ARE OR HAVE BEEN ENROLLED IN A CHEMICAL DEPENDENCY/SUBSTANCEABUSE PROGRAM, SOME INFORMATION MAY BE OMITTED. This clinical summary was aggregated from multiple sources. Caution should be exercised in using it in the provision of clinical care. This summary normalizes information from multiple sources, and as a consequence, information in this document may materially change the coding, format and clinical context of patient data. In addition, data may be omitted in some cases. CLINICAL DECISIONS SHOULD BE BASED ON THE PRIMARY CLINICAL RECORDS. [employer] provides no warranty or guarantee of the accuracy or completeness of information in this document.
[2024-12-17 06:53] LABS: Hematocrit 39.5 % (37-47); Hemoglobin 13.3 g/dL (12.0-15.0); Immature Granulocytes Count 0.010 X10^3/uL (0.0-0.0); Mean Corp Hgb Conc 33.7 g/dL (32-36); Mean Corpuscular Volume 87.8 fL (81-99); Mean Platelet Vol. 9.0 fl (6.2-12.0); NRBC Flagged by Analyzer 0 % (0-5); Platelet Count 268 K/mm3 (150-450); RBC Distribution Width CV 12.6 % (11.6-14.6); RBC Distribution Width SD 40.6 fl (35.1-43.9); Red Blood Count 4.50 M/mm3 (4.2-5.4); White Blood Count 5.4 K/mm3 (4.4-11.0)
[2024-12-17 06:54] LABS: Color, Urine Yellow (Yellow); Glucose, Dipstick Normal (Normal); Ketone-Dipstick Negative (Negative); Leukocyte Esterase-Dipstick 25 /ul (Negative); Nitrite-Dipstick Negative (Negative); Occult Blood-Urine Negative /ul (Negative); Protein-Dipstick 15 mg/dl (Negative); Specific Gravity, Urine 1.015 (1.002-1.030); Urine Bilirubin Dipstick Negative (Negative)
[2024-12-17 08:17] LABS: Creatinine, Urine (random) 180.00 mg/dL (28.00-217.00); Microalbumin,Random Urine < 12.0 mg/L (<20 mg/L)
[2024-12-17 08:20] LABS: Cholesterol 203 mg/dL (<=200); Low Density Lipoprotein Calc. 106 mg/dL; Triglycerides 123 mg/dL; Very Low Density Lipoprotein 25 mg/dL (5-40); cholesterol:hdl ratio screen 2.82
[2024-12-17 08:21] LABS: AST(SGOT) 24 U/L (<=31); Alanine Aminotransfer ALT/SGPT 12 U/L (<=34); Albumin, Serum 4.3 g/dL (3.4-4.8); Alkaline Phosphatase 99 U/L (35-104); Anion Gap 11 (5-15); BUN 12 mg/dL (4-19); BUN/Creat Ratio 15.5 RATIO (10-20); Calcium,Total 9.5 mg/dL (7.6-11.0); Carbon Dioxide 24.3 mmol/L (21.0-32.0); Chloride 103 mmol/L (98-108); Globulin 2.8 g/dL (2.2-4.2); Glucose 108 mg/dL (70-99); Potassium 5.0 mmol/L (3.3-5.1)
[2024-12-20 14:08] LABS: Vitamin D 1,25-Dihydroxy 67.4 pg/mL (24.8-81.5)
== END | disposition home or self-care (01) ==
LOC: LAB 06:05
PROVIDERS: PCP Nurse Practitioner Family; Referring Provider Nurse Practitioner Family; Visit Provider Nurse Practitioner Family
DX: I10 Essential (primary) hypertension (principal); E55.9 Vitamin D deficiency, unspecified; E78.5 Hyperlipidemia, unspecified
CPT/HCPCS: 36415; 80053; 80061; 81002; 82043; 82570; 82652; 84443; 85025

== ENCOUNTER → 2024-12-31 | Outpatient (CLI) | payer OTHER, SELFPAY ==
--- NOTE | 2024-12-31 07:45 | BI_ITS ---
EXAM: SCRN MAMM (CAD)W/CRYSTAL BILAT DATE: 12/31/2024 CLINICAL HISTORY: F, Age 64 y/o , SCRN MAMM (CAD)W/CRYSTAL BILAT DUE AFTER 12/28/2024 TECHNIQUE: Procedure Code: [id number] Modality: MG Procedure: SCRN MAMM (CAD)W/CRYSTAL BILAT COMPARISON: Prior exam(s) dated 12/29/2023, 12/10/2022, 12/07/2021. FINDINGS: TISSUE DENSITY: There are scattered areas of fibroglandular density. Bilateral Breast Mammographic Findings: No significant masses, calcifications or other abnormalities are identified. BI/SCRN MAMM (CAD)W/CRYSTAL BILAT IMPRESSION: There is no mammographic evidence of malignancy. OVERALL FINAL ASSESSMENT BI-RADS 1: NEGATIVE. RECOMMENDATION: Routine annual follow-up in 1 Year A letter with findings and recommendations will be mailed to the patient. Reading Location: [id number]
== END | disposition home or self-care (01) ==
LOC: OPBI 07:39
PROVIDERS: PCP Nurse Practitioner Family; Referring Provider Nurse Practitioner Family; Visit Provider Nurse Practitioner Family
DX: Z12.31 Encounter for screening mammogram for malignant neoplasm of breast (principal)
CPT/HCPCS: 77063; 77067